=== PATIENT | female | born 1950 | race Caucasian/White ===

== ENCOUNTER → 2022-04-05 | Emergency (ER) | payer MEDICARE, MEDICAID ==
[~2022-04-05] VITALS: Ht 167.6 cm; Wt 68.1 kg
[2022-04-05 15:36] LABS: Basophils # (auto) 0.1 10 ^3/uL (0-0.2); Basophils % (auto) 0.5 % (0.0-2.0); Eosinophils # (auto) 0.3 10 ^3/uL (0-0.8); Eosinophils % (auto) 2.5 % (0.0-7.0); Hematocrit 28.5 % (36.0-46.0); Hemoglobin 9.5 g/dL (12.2-16.2); Lymphocytes # (auto) 0.8 10 ^3/uL (0.4-5.4); Lymphocytes % (auto) 7.3 % (10.0-50.0); Mean Corpuscular Hemoglobin 30.3 pg (28.0-32.0); Mean Corpuscular Hgb Conc. 33.2 g/dL (32.0-36.0); Mean Corpuscular Volume 91.1 fL (80.0-100.0); Monocytes # (auto) 0.8 10 ^3/uL (0-1.3); Monocytes % (auto) 6.7 % (0.0-12.0); Neutrophils # (auto) 9.6 10 ^3/uL (1.6-8.6); Nucleated Red Blood Cells % 0.1 %; Red Blood Cells 3.13 10^6/uL (4.0-5.20); White Blood Cell 11.5 10^3/uL (4.4-10.8)
[2022-04-05 15:41] LABS: Albumin 3.7 g/dL (3.4-5.0); BUN/Creatinine Ratio 23.4; Calcium 8.8 mg/dL (8.5-10.1); Potassium 4.2 mmol/L (3.5-5.1)
[2022-04-05 15:44] LABS: Bilirubin, Total 0.4 mg/dL (0.2-1.0); Total Protein 6.6 g/dL (6.4-8.2)
[2022-04-05 18:00] VITALS: BP 127/58
== END | disposition home or self-care (01) ==
LOC: EDBD 14:28 → ER 14:28
DX: R07.89 Other chest pain (principal); J44.9 Chronic obstructive pulmonary disease, unspecified; Z90.49 Acquired absence of other specified parts of digestive tract; Z90.710 Acquired absence of both cervix and uterus; Z88.1 Allergy status to other antibiotic agents
CPT/HCPCS: 36415; 71045; 80053; 83880; 84484; 85025; 93005

== ENCOUNTER 2022-07-01 10:21 | Inpatient (IN) | payer MEDICARE, MEDICAID ==
[~2022-07-01] VITALS: Ht 160 cm; Wt 70.1 kg
[2022-07-01] MEDS ORDERED: MORPHINE SULFATE 4 MG/ML SYR/VIAL IV ONE (10:30)
[2022-07-01] MEDS ORDERED: ONDANSETRON HCL 4 MG/2 ML VIAL IV ONE (10:30)
[2022-07-01 11:12] LABS: Basophils # (auto) 0.1 10 ^3/uL (0-0.2); Basophils % (auto) 0.7 % (0.0-2.0); Eosinophils # (auto) 0.3 10 ^3/uL (0-0.8); Eosinophils % (auto) 3.9 % (0.0-7.0); Hematocrit 33.2 % (36.0-46.0); Hemoglobin 10.9 g/dL (12.2-16.2); Lymphocytes # (auto) 0.7 10 ^3/uL (0.4-5.4); Lymphocytes % (auto) 7.8 % (10.0-50.0); Mean Corpuscular Hemoglobin 30.1 pg (28.0-32.0); Mean Corpuscular Hgb Conc. 32.8 g/dL (32.0-36.0); Mean Corpuscular Volume 91.6 fL (80.0-100.0); Monocytes # (auto) 0.6 10 ^3/uL (0-1.3); Monocytes % (auto) 7.5 % (0.0-12.0); Neutrophils # (auto) 6.9 10 ^3/uL (1.6-8.6); Neutrophils % (auto) 80.1 % (37.0-80.0); Nucleated Red Blood Cells % 0.1 %; Red Blood Cells 3.63 10^6/uL (4.0-5.20); Red Cell Distribution Width 14.3 % (11.8-14.3); White Blood Cell 8.7 10^3/uL (4.4-10.8)
[2022-07-01 11:28] LABS: Albumin 3.5 g/dL (3.4-5.0); Calcium 8.9 mg/dL (8.5-10.1); Magnesium 2.1 mg/dL (1.6-2.6); Potassium 4.2 mmol/L (3.5-5.1)
[2022-07-01 11:32] LABS: INR 1.13 (0.9-1.15); Partial Thromboplastin Time 20.3 sec (24.6-33.4)
[2022-07-01 11:34] LABS: Bilirubin, Total 0.2 mg/dL (0.2-1.0); Total Protein 6.5 g/dL (6.4-8.2)
[2022-07-01 12:17] LABS: BUN/Creatinine Ratio 17.5
[2022-07-01 12:24] LABS: Urine Bacteria NONE SEEN /hpf (None Seen); Urine Blood Negative /uL (Negative); Urine Specific Gravity 1.009 (1.001-1.035); Urine WBC 68 /hpf (0 - 5)
[2022-07-01] MEDS ORDERED: ACETAMINOPHEN 325 MG TAB PO PRN (14:00)
[2022-07-01] MEDS ORDERED: NITROGLYCERIN 0.4 MG SL TAB SL PRN (14:00)
[2022-07-01] MEDS ORDERED: ALUM & MAG HYDROX-SIMETH LIQ(MAALOX) 30 ML PO ONE (14:00)
[2022-07-01 15:10] LABS: INR 1.15 (0.9-1.15)
[2022-07-01] MEDS ORDERED: levoFLOXacin 500MG 100 ML IV ONE (17:00)
[2022-07-01 17:25] VITALS: BP 184/72
[2022-07-01] MEDS ORDERED: RANO500T3 PO (18:10)
[2022-07-01] MEDS ORDERED: MONT-8 PO (18:10)
[2022-07-01] MEDS ORDERED: FURO40TA4 PO (18:10)
[2022-07-01] MEDS ORDERED: ASPI1TAB20 PO (18:10)
[2022-07-01] MEDS ORDERED: POTA-264 PO (18:10)
[2022-07-01] MEDS ORDERED: TICA90TA PO (18:10)
[2022-07-01] MEDS ORDERED: CARV25TA55 PO (18:10)
[2022-07-01] MEDS ORDERED: PANT40T PO (18:10)
[2022-07-01] MEDS ORDERED: LISI-275 PO (18:10)
[2022-07-01] MEDS ORDERED: ATOR40TA52 PO (18:10)
[2022-07-01] MEDS ORDERED: HYDR-4902 PO (18:10)
[2022-07-01] MEDS ORDERED: TIOTCAP IN (18:10)
[2022-07-01] MEDS ORDERED: FERR325T20 PO (18:10)
[2022-07-01] MEDS ORDERED: LOPE2CAP PO (18:10)
[2022-07-01 18:19] VITALS: BP 176/86
[2022-07-01] MEDS: TICAGRELOR 90 MG TAB PO SCH (21:57)
[2022-07-01] MEDS: MORPHINE SULFATE 4 MG/ML SYR/VIAL IV PRN (21:59)
[2022-07-01] MEDS ORDERED: ATORVASTATIN 20 MG TAB PO SCH (22:00)
[2022-07-02] VITALS (7 sets, daily range): BP systolic 111–140; BP diastolic 45–73
[2022-07-02 08:37] LABS: Basophils # (auto) 0.1 10 ^3/uL (0-0.2); Eosinophils # (auto) 0.4 10 ^3/uL (0-0.8); Eosinophils % (auto) 6.7 % (0.0-7.0); Hematocrit 30.5 % (36.0-46.0); Hemoglobin 9.8 g/dL (12.2-16.2); Lymphocytes # (auto) 0.9 10 ^3/uL (0.4-5.4); Lymphocytes % (auto) 15.5 % (10.0-50.0); Mean Corpuscular Hemoglobin 30.2 pg (28.0-32.0); Mean Corpuscular Hgb Conc. 32.1 g/dL (32.0-36.0); Mean Corpuscular Volume 94.1 fL (80.0-100.0); Monocytes # (auto) 0.6 10 ^3/uL (0-1.3); Monocytes % (auto) 9.2 % (0.0-12.0); Neutrophils # (auto) 4.1 10 ^3/uL (1.6-8.6); Neutrophils % (auto) 67.6 % (37.0-80.0); Red Blood Cells 3.24 10^6/uL (4.0-5.20); Red Cell Distribution Width 14.8 % (11.8-14.3); White Blood Cell 6.1 10^3/uL (4.4-10.8)
[2022-07-02 08:52] LABS: Calcium 8.8 mg/dL (8.5-10.1); Potassium 4.1 mmol/L (3.5-5.1)
[2022-07-02 08:59] LABS: BUN/Creatinine Ratio 26.5; Bilirubin, Total 0.3 mg/dL (0.2-1.0); Total Protein 5.9 g/dL (6.4-8.2)
[2022-07-02] MEDS ORDERED: FUROSEMIDE 20 MG/2 ML VIAL IV SCH (10:00)
[2022-07-02] MEDS: TICAGRELOR 90 MG TAB PO SCH ×2 (10:15→22:53)
[2022-07-02] MEDS: ENOXAPARIN SOD 40 MG/0.4 ML SYRINGE SC SCH (10:16)
[2022-07-02] MEDS ORDERED: ASPirin 81 mg TAB PO ONE (10:30)
[2022-07-02] MEDS ORDERED: ALBUTEROL SULF 2.5 MG/0.5ML(0.5%) NEB SOLN NEB PRN (10:30)
[2022-07-02] MEDS ORDERED: cefTRIAXone 1GM/50ML D5W 50 ML IV ONE ×2 (10:30→12:15)
[2022-07-02] MEDS ORDERED: FUROSEMIDE 20 MG/2 ML VIAL IV ONE (11:30)
[2022-07-02] MEDS ORDERED: IOHEXOL 350 MG/ML 100ML IJ ONE ×2 (11:57→13:31)
[2022-07-02] MEDS: HYDROcodone-ACET 5/325MG TAB PO PRN ×2 (12:01→22:55)
[2022-07-02] MEDS: CARVEDILOL 12.5 MG TAB PO SCH ×2 (15:28→22:54)
[2022-07-02 17:05] LABS: Urine Bacteria MOD /hpf (None Seen); Urine Blood Negative /uL (Negative); Urine Specific Gravity 1.008 (1.001-1.035); Urine WBC 26 /hpf (0 - 5)
[2022-07-02] MEDS: ATORVASTATIN 20 MG TAB PO SCH (22:54)
[2022-07-03 05:00] VITALS: BP 102/56
[2022-07-03] MEDS: CARVEDILOL 12.5 MG TAB PO SCH ×3 (06:00→22:04)
[2022-07-03 08:00] VITALS: BP 110/43
[2022-07-03] MEDS ORDERED: ASPirin-EC 81 mg tab PO SCH (10:00)
[2022-07-03] MEDS: cefTRIAXone 1GM/50ML D5W 50 ML IV SCH (11:00)
[2022-07-03] MEDS: FUROSEMIDE 20 MG/2 ML VIAL IV SCH (11:00)
[2022-07-03] MEDS: ENOXAPARIN SOD 40 MG/0.4 ML SYRINGE SC SCH (11:01)
[2022-07-03] MEDS: TICAGRELOR 90 MG TAB PO SCH ×2 (11:01→22:03)
[2022-07-03] MEDS: ASPirin 81 mg TAB PO SCH (11:02)
[2022-07-03] MEDS: LISINOPRIL 5 MG TAB PO SCH (11:02)
[2022-07-03] MEDS: PANTOPRAZOLE 40 MG TAB PO SCH (11:03)
[2022-07-03 12:00] VITALS: BP 132/75
[2022-07-03] MEDS: HYDROcodone-ACET 5/325MG TAB PO PRN (12:49)
[2022-07-03 16:57] VITALS: BP 117/56
[2022-07-03] MEDS: ONDANSETRON HCL 4 MG/2 ML VIAL IV PRN (18:33)
[2022-07-03 22:00] VITALS: BP 112/43
[2022-07-03] MEDS: ATORVASTATIN 20 MG TAB PO SCH (22:03)
[2022-07-04 05:00] VITALS: BP 97/42
[2022-07-04] MEDS: CARVEDILOL 12.5 MG TAB PO SCH ×3 (05:13→21:55)
[2022-07-04 05:50] VITALS: BP 111/43
[2022-07-04] MEDS: MORPHINE SULFATE 4 MG/ML SYR/VIAL IV PRN (08:08)
[2022-07-04 09:00] VITALS: BP 111/55
[2022-07-04] MEDS ORDERED: IOHEXOL 350 MG/ML 100ML IJ ONE (09:39)
[2022-07-04] MEDS: FUROSEMIDE 20 MG/2 ML VIAL IV SCH (10:25)
[2022-07-04] MEDS: ASPirin 81 mg TAB PO SCH (10:25)
[2022-07-04] MEDS: TICAGRELOR 90 MG TAB PO SCH ×2 (10:26→21:49)
[2022-07-04] MEDS: ENOXAPARIN SOD 40 MG/0.4 ML SYRINGE SC SCH (10:26)
[2022-07-04] MEDS: PANTOPRAZOLE 40 MG TAB PO SCH (10:26)
[2022-07-04] MEDS: LISINOPRIL 5 MG TAB PO SCH (10:26)
[2022-07-04] MEDS: cefTRIAXone 1GM/50ML D5W 50 ML IV SCH (10:27)
[2022-07-04] MEDS: HYDROcodone-ACET 5/325MG TAB PO PRN ×2 (12:48→21:51)
[2022-07-04 13:00] VITALS: BP 134/62
[2022-07-04 16:55] VITALS: BP 130/65
[2022-07-04] MEDS: ONDANSETRON HCL 4 MG/2 ML VIAL IV PRN (18:58)
[2022-07-04] MEDS: ATORVASTATIN 20 MG TAB PO SCH (21:46)
[2022-07-04 22:31] VITALS: BP 116/53
[2022-07-05 05:00] VITALS: BP 108/44
[2022-07-05] MEDS: CARVEDILOL 12.5 MG TAB PO SCH ×3 (05:27→14:33)
[2022-07-05] MEDS: HYDROcodone-ACET 5/325MG TAB PO PRN (06:03)
[2022-07-05 09:00] VITALS: BP 93/66
[2022-07-05] MEDS: ONDANSETRON HCL 4 MG/2 ML VIAL IV PRN (09:15)
[2022-07-05] MEDS: ASPirin 81 mg TAB PO SCH (09:21)
[2022-07-05] MEDS: ENOXAPARIN SOD 40 MG/0.4 ML SYRINGE SC SCH (09:21)
[2022-07-05] MEDS: TICAGRELOR 90 MG TAB PO SCH (09:21)
[2022-07-05] MEDS ORDERED: CEPH-322 PO (10:08)
[2022-07-05] MEDS: cefTRIAXone 1GM/50ML D5W 50 ML IV SCH (10:59)
[2022-07-05] MEDS: PANTOPRAZOLE 40 MG TAB PO SCH (11:00)
[2022-07-05] MEDS: LISINOPRIL 5 MG TAB PO SCH (11:00)
[2022-07-05] MEDS: FUROSEMIDE 20 MG/2 ML VIAL IV SCH (11:00)
[2022-07-05 13:00] VITALS: BP 111/40
[2022-07-05] MEDS ORDERED: ONDANSETRON ODT 4 MG TAB PO ONE (13:45)
[2022-07-05 17:00] VITALS: BP 152/58
== END 2022-07-05 19:00 | disposition home health service (06) | DRG 198 ==
LOC: EDBD 10:21 → EDUNIT# 10:21 → ER 10:21 → TELE 14:11 → TELE-EAST 17:17
PROVIDERS: ADMIT Nurse Practitioner Family; ATTEND Family Medicine
DX: I25.10 Atherosclerotic heart disease of native coronary artery without angina pectoris (principal); I50.43 Acute on chronic combined systolic (congestive) and diastolic (congestive) heart failure; J18.9 Pneumonia, unspecified organism; I27.20 Pulmonary hypertension, unspecified; I24.9 Acute ischemic heart disease, unspecified; I11.0 Hypertensive heart disease with heart failure; J44.0 Chronic obstructive pulmonary disease with (acute) lower respiratory infection; Z95.1 Presence of aortocoronary bypass graft; J44.1 Chronic obstructive pulmonary disease with (acute) exacerbation; E78.5 Hyperlipidemia, unspecified; Z88.8 Allergy status to other drugs, medicaments and biological substances; D50.0 Iron deficiency anemia secondary to blood loss (chronic); E78.00 Pure hypercholesterolemia, unspecified; Z20.822 Contact with and (suspected) exposure to COVID-19; N39.0 Urinary tract infection, site not specified; Z79.02 Long term (current) use of antithrombotics/antiplatelets; Z86.73 Personal history of transient ischemic attack (TIA), and cerebral infarction without residual deficits; Z90.710 Acquired absence of both cervix and uterus; Z95.0 Presence of cardiac pacemaker; Z95.2 Presence of prosthetic heart valve; Z95.5 Presence of coronary angioplasty implant and graft; Z99.81 Dependence on supplemental oxygen; Z90.49 Acquired absence of other specified parts of digestive tract
CPT/HCPCS: 36415; 70450; 71045; 71275; 80053; 80061; 81001; 83735; 83880; 84443; 84484; 85025; 85610; 85730; 87086; 87088; 87186; 87426; 93005; 93306; 94640; 96374; 96375; G0378; J0696; J2405; Q0162

== ENCOUNTER 2022-07-27 11:32 | Inpatient (IN) | payer MEDICARE, MEDICAID ==
[~2022-07-27] VITALS: Ht 170.2 cm; Wt 74.2 kg
[~2022-07-27 11:32] MED LIST: ASPI1TAB20 PO; ATOR40TA52 PO; CARV25TA55 PO; CEPH-322 PO; FERR325T20 PO; FURO40TA4 PO; HYDR-4902 PO; LISI-275 PO; LOPE2CAP PO; MONT-8 PO; PANT40T PO; POTA-264 PO; RANO500T3 PO; TICA90TA PO; TIOTCAP IN
[2022-07-27 12:24] LABS: Basophils # (auto) 0 10 ^3/uL (0-0.2); Basophils % (auto) 0.2 % (0.0-2.0); Eosinophils # (auto) 0.4 10 ^3/uL (0-0.8); Eosinophils % (auto) 4.3 % (0.0-7.0); Hematocrit 33.8 % (36.0-46.0); Lymphocytes # (auto) 0.7 10 ^3/uL (0.4-5.4); Lymphocytes % (auto) 7.4 % (10.0-50.0); Mean Corpuscular Hemoglobin 30.2 pg (28.0-32.0); Mean Corpuscular Hgb Conc. 32.6 g/dL (32.0-36.0); Mean Corpuscular Volume 92.8 fL (80.0-100.0); Monocytes # (auto) 0.6 10 ^3/uL (0-1.3); Monocytes % (auto) 6.5 % (0.0-12.0); Neutrophils # (auto) 7.3 10 ^3/uL (1.6-8.6); Neutrophils % (auto) 81.6 % (37.0-80.0); Red Blood Cells 3.64 10^6/uL (4.0-5.20); Red Cell Distribution Width 15.5 % (11.8-14.3)
[2022-07-27 12:42] LABS: Albumin 3.7 g/dL (3.4-5.0); Calcium 9.1 mg/dL (8.5-10.1)
[2022-07-27 12:46] LABS: BUN/Creatinine Ratio 15.5; Bilirubin, Total 0.3 mg/dL (0.2-1.0)
[2022-07-27] MEDS ORDERED: IPRATROPIUM BROM 0.5 MG/2.5ML INH SOL NEB ONE (13:00)
[2022-07-27] MEDS ORDERED: DexAMETHasone 4 MG TAB PO ONE (13:00)
[2022-07-27] MEDS ORDERED: ALBUTEROL SULF 2.5 MG/0.5ML(0.5%) NEB SOLN NEB ONE (13:00)
[2022-07-27 13:20] LABS: INR 1.11 (0.9-1.15); Partial Thromboplastin Time 27.9 sec (24.6-33.4)
[2022-07-27] MEDS: MAGNESIUM SULFATE 1GM/100ML 100 ML IV SCH ×2 (14:00→15:46)
[2022-07-27] MEDS ORDERED: cefTRIAXone 1GM/50ML D5W 50 ML IV ONE (15:00)
[2022-07-27] MEDS ORDERED: VANCOMYCIN 1GM/250ML 250 ML IV ONE (16:00)
[2022-07-27] MEDS ORDERED: CEFEPIME 1GM/ 50ML 50 ML IV ONE (17:00)
[2022-07-27] MEDS ORDERED: VANCOMYCIN PER PHARMACY 0 MG IV SCH (18:30)
[2022-07-27] MEDS ORDERED: ACETAMINOPHEN 325 MG TAB PO PRN (18:30)
[2022-07-27] MEDS ORDERED: VANCOMYCIN 1GM/250ML 250 ML IV SCH (18:45)
[2022-07-27 19:13] VITALS: BP 156/68
[2022-07-27 19:31] LABS: % Iron Saturation 10.3 % (15-50)
[2022-07-28] MEDS: methylPREDNISolone SOD SUCC 40 MG/ML VL IV SCH ×3 (00:15→21:54)
[2022-07-28] MEDS: RANOLAZINE ER 500 MG TAB PO SCH ×3 (00:16→21:55)
[2022-07-28] MEDS: FERROUS SULFATE 325mg EC TAB PO SCH ×3 (00:16→21:54)
[2022-07-28] MEDS: CARVEDILOL 12.5 MG TAB PO SCH ×4 (00:17→22:00)
[2022-07-28] MEDS: ASCORBIC ACID 500 MG TAB PO SCH ×3 (00:18→21:55)
[2022-07-28] MEDS: SODIUM CHLORIDE 0.9% 1,000 ML IV SCH ×2 (00:18→11:10)
[2022-07-28] MEDS: TICAGRELOR 90 MG TAB PO SCH ×3 (00:18→21:55)
[2022-07-28] MEDS: IPRATROPIUM BROM 0.5 MG/2.5ML INH SOL NEB SCH ×4 (00:19→18:11)
[2022-07-28] MEDS: ALBUTEROL SULF 2.5 MG/0.5ML(0.5%) NEB SOLN NEB SCH ×4 (00:19→18:12)
[2022-07-28 03:00] VITALS: BP 140/66
[2022-07-28] MEDS: VANCOMYCIN 1GM/250ML 250 ML IV SCH ×3 (03:30→21:53)
[2022-07-28 08:09] LABS: Basophils # (auto) 0 10 ^3/uL (0-0.2); Basophils % (auto) 0.2 % (0.0-2.0); Eosinophils # (auto) 0 10 ^3/uL (0-0.8); Hematocrit 30.5 % (36.0-46.0); Lymphocytes # (auto) 0.3 10 ^3/uL (0.4-5.4); Lymphocytes % (auto) 4.5 % (10.0-50.0); Mean Corpuscular Hemoglobin 31.1 pg (28.0-32.0); Mean Corpuscular Hgb Conc. 32.7 g/dL (32.0-36.0); Mean Corpuscular Volume 95.1 fL (80.0-100.0); Monocytes # (auto) 0.1 10 ^3/uL (0-1.3); Monocytes % (auto) 1.1 % (0.0-12.0); Neutrophils # (auto) 6.3 10 ^3/uL (1.6-8.6); Neutrophils % (auto) 94.2 % (37.0-80.0); Nucleated Red Blood Cells % 0.1 %; Red Blood Cells 3.21 10^6/uL (4.0-5.20); Red Cell Distribution Width 15.5 % (11.8-14.3); White Blood Cell 6.7 10^3/uL (4.4-10.8)
[2022-07-28 08:28] LABS: Albumin 3.3 g/dL (3.4-5.0); BUN/Creatinine Ratio 27.6; Calcium 8.7 mg/dL (8.5-10.1); Potassium 4.2 mmol/L (3.5-5.1)
[2022-07-28 08:31] LABS: Bilirubin, Total 0.2 mg/dL (0.2-1.0)
[2022-07-28 08:45] VITALS: BP 101/38
[2022-07-28] MEDS: cefTRIAXone 1GM/50ML D5W 50 ML IV SCH (10:12)
[2022-07-28] MEDS: LISINOPRIL 5 MG TAB PO SCH (10:13)
[2022-07-28] MEDS: ENOXAPARIN SOD 40 MG/0.4 ML SYRINGE SC SCH (10:13)
[2022-07-28] MEDS: MONTELUKAST SODIUM 10 MG TAB PO SCH (10:14)
[2022-07-28] MEDS: MULTIPLE VITAMIN TAB PO SCH (10:14)
[2022-07-28] MEDS: ASPirin-EC 81 mg tab PO SCH (10:14)
[2022-07-28] MEDS: POTASSIUM CHL 10 Meq TABLET PO SCH (10:15)
[2022-07-28] MEDS: ZINC SULFATE 220mg CAP or TAB PO SCH (10:15)
[2022-07-28] MEDS: ATORVASTATIN 20 MG TAB PO SCH (10:15)
[2022-07-28 13:00] VITALS: BP_SYST 139; BP_SYST 151; BP_DIAS 63; BP_DIAS 77
[2022-07-28] MEDS: HYDROcodone-ACET 5/325MG TAB PO PRN ×2 (14:40→19:34)
[2022-07-28 17:07] VITALS: BP 131/81
[2022-07-28 22:00] VITALS: BP 114/55
[2022-07-29] MEDS: ALBUTEROL SULF 2.5 MG/0.5ML(0.5%) NEB SOLN NEB SCH ×4 (00:33→19:01)
[2022-07-29] MEDS: IPRATROPIUM BROM 0.5 MG/2.5ML INH SOL NEB SCH ×4 (00:34→19:01)
[2022-07-29] MEDS: SODIUM CHLORIDE 0.9% 1,000 ML IV SCH (03:50)
[2022-07-29 04:30] VITALS: BP 106/51
[2022-07-29] MEDS: HYDROcodone-ACET 5/325MG TAB PO PRN ×2 (05:58→10:54)
[2022-07-29] MEDS: CARVEDILOL 12.5 MG TAB PO SCH ×3 (05:58→22:25)
[2022-07-29 09:00] VITALS: BP 133/58
[2022-07-29] MEDS: ASPirin-EC 81 mg tab PO SCH (10:51)
[2022-07-29] MEDS: ASCORBIC ACID 500 MG TAB PO SCH ×2 (10:51→22:22)
[2022-07-29] MEDS: RANOLAZINE ER 500 MG TAB PO SCH ×2 (10:51→22:22)
[2022-07-29] MEDS: ATORVASTATIN 20 MG TAB PO SCH (10:51)
[2022-07-29] MEDS: MONTELUKAST SODIUM 10 MG TAB PO SCH (10:52)
[2022-07-29] MEDS: LISINOPRIL 5 MG TAB PO SCH (10:52)
[2022-07-29] MEDS: POTASSIUM CHL 10 Meq TABLET PO SCH (10:52)
[2022-07-29] MEDS: ZINC SULFATE 220mg CAP or TAB PO SCH (10:52)
[2022-07-29] MEDS: MULTIPLE VITAMIN TAB PO SCH (10:52)
[2022-07-29] MEDS: FERROUS SULFATE 325mg EC TAB PO SCH ×2 (10:53→22:22)
[2022-07-29] MEDS: TICAGRELOR 90 MG TAB PO SCH ×2 (10:53→22:22)
[2022-07-29] MEDS: methylPREDNISolone SOD SUCC 40 MG/ML VL IV SCH ×2 (10:54→22:22)
[2022-07-29] MEDS: ENOXAPARIN SOD 40 MG/0.4 ML SYRINGE SC SCH (10:54)
[2022-07-29] MEDS: cefTRIAXone 1GM/50ML D5W 50 ML IV SCH (10:55)
[2022-07-29] MEDS: VANCOMYCIN 1GM/250ML 250 ML IV SCH ×2 (10:55→22:21)
[2022-07-29 13:00] VITALS: BP 147/63
[2022-07-29 17:00] VITALS: BP 148/60
[2022-07-29 22:00] VITALS: BP 134/50
[2022-07-30] VITALS (7 sets, daily range): BP systolic 119–147; BP diastolic 49–92
[2022-07-30] MEDS: ALBUTEROL SULF 2.5 MG/0.5ML(0.5%) NEB SOLN NEB SCH ×4 (00:28→19:14)
[2022-07-30] MEDS: IPRATROPIUM BROM 0.5 MG/2.5ML INH SOL NEB SCH ×4 (00:28→19:14)
[2022-07-30] MEDS: SODIUM CHLORIDE 0.9% 1,000 ML IV SCH ×3 (00:30→13:10)
[2022-07-30] MEDS: CARVEDILOL 12.5 MG TAB PO SCH ×4 (05:29→22:46)
[2022-07-30] MEDS: HYDROcodone-ACET 5/325MG TAB PO PRN ×2 (05:35→22:47)
[2022-07-30] MEDS: cefTRIAXone 1GM/50ML D5W 50 ML IV SCH (09:05)
[2022-07-30] MEDS: RANOLAZINE ER 500 MG TAB PO SCH ×2 (09:23→22:45)
[2022-07-30] MEDS: LISINOPRIL 5 MG TAB PO SCH (09:25)
[2022-07-30] MEDS: ATORVASTATIN 20 MG TAB PO SCH (09:26)
[2022-07-30] MEDS: POTASSIUM CHL 10 Meq TABLET PO SCH (09:27)
[2022-07-30] MEDS: ZINC SULFATE 220mg CAP or TAB PO SCH (09:27)
[2022-07-30] MEDS: ASCORBIC ACID 500 MG TAB PO SCH ×2 (09:27→22:45)
[2022-07-30] MEDS: ENOXAPARIN SOD 40 MG/0.4 ML SYRINGE SC SCH (09:27)
[2022-07-30] MEDS: ASPirin-EC 81 mg tab PO SCH (09:27)
[2022-07-30] MEDS: FERROUS SULFATE 325mg EC TAB PO SCH ×2 (09:28→22:45)
[2022-07-30] MEDS: MULTIPLE VITAMIN TAB PO SCH (09:28)
[2022-07-30] MEDS: MONTELUKAST SODIUM 10 MG TAB PO SCH (09:28)
[2022-07-30] MEDS: TICAGRELOR 90 MG TAB PO SCH ×2 (09:29→22:47)
[2022-07-30] MEDS: methylPREDNISolone SOD SUCC 40 MG/ML VL IV SCH ×2 (09:29→22:45)
[2022-07-30] MEDS: VANCOMYCIN 1GM/250ML 250 ML IV SCH ×2 (10:51→22:44)
[2022-07-31] MEDS: ALBUTEROL SULF 2.5 MG/0.5ML(0.5%) NEB SOLN NEB SCH ×5 (01:14→18:38)
[2022-07-31] MEDS: IPRATROPIUM BROM 0.5 MG/2.5ML INH SOL NEB SCH ×5 (01:14→18:38)
[2022-07-31] MEDS: HYDROcodone-ACET 5/325MG TAB PO PRN ×2 (04:25→09:11)
[2022-07-31 05:00] VITALS: BP 144/61
[2022-07-31 05:09] LABS: Albumin 3.2 g/dL (3.4-5.0); BUN/Creatinine Ratio 27.5; Calcium 8.7 mg/dL (8.5-10.1); Phosphorus 3.3 mg/dL (2.5-4.90); Potassium 4.2 mmol/L (3.5-5.1)
[2022-07-31] MEDS: SODIUM CHLORIDE 0.9% 1,000 ML IV SCH ×2 (05:34→22:30)
[2022-07-31 08:20] VITALS: BP 121/75
[2022-07-31 09:00] VITALS: BP 121/57
[2022-07-31] MEDS: cefTRIAXone 1GM/50ML D5W 50 ML IV SCH (09:11)
[2022-07-31] MEDS: ASPirin-EC 81 mg tab PO SCH (10:04)
[2022-07-31] MEDS: ASCORBIC ACID 500 MG TAB PO SCH ×2 (10:05→22:43)
[2022-07-31] MEDS: FERROUS SULFATE 325mg EC TAB PO SCH ×2 (10:05→22:48)
[2022-07-31] MEDS: ATORVASTATIN 20 MG TAB PO SCH (10:05)
[2022-07-31] MEDS: RANOLAZINE ER 500 MG TAB PO SCH ×2 (10:08→22:43)
[2022-07-31] MEDS: MONTELUKAST SODIUM 10 MG TAB PO SCH (10:09)
[2022-07-31] MEDS: ZINC SULFATE 220mg CAP or TAB PO SCH (10:09)
[2022-07-31] MEDS: TICAGRELOR 90 MG TAB PO SCH ×2 (10:09→22:48)
[2022-07-31] MEDS: MULTIPLE VITAMIN TAB PO SCH (10:09)
[2022-07-31] MEDS: LISINOPRIL 5 MG TAB PO SCH (10:10)
[2022-07-31] MEDS: POTASSIUM CHL 10 Meq TABLET PO SCH (10:10)
[2022-07-31] MEDS: ENOXAPARIN SOD 40 MG/0.4 ML SYRINGE SC SCH (10:10)
[2022-07-31] MEDS: methylPREDNISolone SOD SUCC 40 MG/ML VL IV SCH ×2 (10:11→22:49)
[2022-07-31] MEDS: VANCOMYCIN 1GM/250ML 250 ML IV SCH ×2 (10:11→22:43)
[2022-07-31 13:00] VITALS: BP_SYST 143; BP_SYST 80; BP_DIAS 55; BP_DIAS 76
[2022-07-31] MEDS: LORazepam 0.5 MG TAB PO PRN ×2 (14:03→22:43)
[2022-07-31 17:00] VITALS: BP 142/61
[2022-07-31 22:00] VITALS: BP 130/55
[2022-08-01] MEDS: ALBUTEROL SULF 2.5 MG/0.5ML(0.5%) NEB SOLN NEB SCH ×4 (00:04→19:01)
[2022-08-01] MEDS: IPRATROPIUM BROM 0.5 MG/2.5ML INH SOL NEB SCH ×4 (00:04→19:01)
[2022-08-01 05:00] VITALS: BP 144/62
[2022-08-01] MEDS: CARVEDILOL 12.5 MG TAB PO SCH ×3 (05:49→21:49)
[2022-08-01 08:20] VITALS: BP 140/56
[2022-08-01 09:00] VITALS: BP 140/56
[2022-08-01] MEDS: cefTRIAXone 1GM/50ML D5W 50 ML IV SCH (09:10)
[2022-08-01] MEDS: methylPREDNISolone SOD SUCC 40 MG/ML VL IV SCH ×2 (09:46→22:33)
[2022-08-01] MEDS: ASPirin-EC 81 mg tab PO SCH (09:46)
[2022-08-01] MEDS: FERROUS SULFATE 325mg EC TAB PO SCH ×2 (09:47→21:48)
[2022-08-01] MEDS: ATORVASTATIN 20 MG TAB PO SCH (09:47)
[2022-08-01] MEDS: MULTIPLE VITAMIN TAB PO SCH (09:47)
[2022-08-01] MEDS: MONTELUKAST SODIUM 10 MG TAB PO SCH (09:47)
[2022-08-01] MEDS: TICAGRELOR 90 MG TAB PO SCH ×2 (09:47→22:33)
[2022-08-01] MEDS: RANOLAZINE ER 500 MG TAB PO SCH ×2 (09:47→22:32)
[2022-08-01] MEDS: ENOXAPARIN SOD 40 MG/0.4 ML SYRINGE SC SCH (09:47)
[2022-08-01] MEDS: POTASSIUM CHL 10 Meq TABLET PO SCH (09:47)
[2022-08-01] MEDS: ASCORBIC ACID 500 MG TAB PO SCH ×2 (09:47→21:48)
[2022-08-01] MEDS: LISINOPRIL 5 MG TAB PO SCH (09:48)
[2022-08-01] MEDS: VANCOMYCIN 1GM/250ML 250 ML IV SCH ×2 (09:49→22:33)
[2022-08-01] MEDS: ZINC SULFATE 220mg CAP or TAB PO SCH (10:01)
[2022-08-01] MEDS ORDERED: ONDANSETRON HCL 4 MG/2 ML VIAL IV PRN (12:30)
[2022-08-01 13:00] VITALS: BP 160/70
[2022-08-01] MEDS: SODIUM CHLORIDE 0.9% 1,000 ML IV SCH (15:10)
[2022-08-01] MEDS: LORazepam 0.5 MG TAB PO PRN (16:40)
[2022-08-01] MEDS: HYDROcodone-ACET 5/325MG TAB PO PRN (16:41)
[2022-08-01 22:00] VITALS: BP 126/57
[2022-08-02] MEDS: ALBUTEROL SULF 2.5 MG/0.5ML(0.5%) NEB SOLN NEB SCH ×3 (00:10→11:29)
[2022-08-02] MEDS: IPRATROPIUM BROM 0.5 MG/2.5ML INH SOL NEB SCH ×3 (00:10→11:29)
[2022-08-02 05:00] VITALS: BP 151/59
[2022-08-02] MEDS: CARVEDILOL 12.5 MG TAB PO SCH ×2 (05:11→13:11)
[2022-08-02] MEDS: HYDROcodone-ACET 5/325MG TAB PO PRN (05:18)
[2022-08-02 07:43] LABS: Potassium 4.5 mmol/L (3.5-5.1)
[2022-08-02 07:55] LABS: Calcium 8.7 mg/dL (8.5-10.1)
[2022-08-02 07:56] LABS: Hematocrit 32.1 % (36.0-46.0); Hemoglobin 10.5 g/dL (12.2-16.2); Mean Corpuscular Hemoglobin 30.9 pg (28.0-32.0); Mean Corpuscular Hgb Conc. 32.8 g/dL (32.0-36.0); Mean Corpuscular Volume 94.2 fL (80.0-100.0); Red Blood Cells 3.41 10^6/uL (4.0-5.20); Red Cell Distribution Width 15.6 % (11.8-14.3); White Blood Cell 7.3 10^3/uL (4.4-10.8)
[2022-08-02 08:01] LABS: BUN/Creatinine Ratio 23.9
[2022-08-02 08:04] LABS: Basophils % (manual) 0 (0.0-2.0); Blast Cells 0; Eosinophils % (manual) 0 (0-7); Metamyelocytes % 0; Monocytes % (manual) 0 (0-12); Myelocytes % 0; Promyelocytes % 0; Reactive Lymphocytes 0
[2022-08-02] MEDS: cefTRIAXone 1GM/50ML D5W 50 ML IV SCH (08:26)
[2022-08-02] MEDS: SODIUM CHLORIDE 0.9% 1,000 ML IV SCH (08:26)
[2022-08-02] MEDS: ATORVASTATIN 20 MG TAB PO SCH (08:28)
[2022-08-02] MEDS: methylPREDNISolone SOD SUCC 40 MG/ML VL IV SCH (08:28)
[2022-08-02] MEDS: MULTIPLE VITAMIN TAB PO SCH (08:28)
[2022-08-02] MEDS: ENOXAPARIN SOD 40 MG/0.4 ML SYRINGE SC SCH (08:28)
[2022-08-02] MEDS: FERROUS SULFATE 325mg EC TAB PO SCH (08:29)
[2022-08-02] MEDS: POTASSIUM CHL 10 Meq TABLET PO SCH (08:29)
[2022-08-02] MEDS: ZINC SULFATE 220mg CAP or TAB PO SCH (08:29)
[2022-08-02] MEDS: TICAGRELOR 90 MG TAB PO SCH (08:29)
[2022-08-02] MEDS: LISINOPRIL 5 MG TAB PO SCH (08:29)
[2022-08-02] MEDS: ASPirin-EC 81 mg tab PO SCH (08:29)
[2022-08-02] MEDS: ASCORBIC ACID 500 MG TAB PO SCH (08:30)
[2022-08-02] MEDS: VANCOMYCIN 1GM/250ML 250 ML IV SCH (08:30)
[2022-08-02] MEDS: MONTELUKAST SODIUM 10 MG TAB PO SCH (08:30)
[2022-08-02 09:00] VITALS: BP 172/79
[2022-08-02] MEDS: RANOLAZINE ER 500 MG TAB PO SCH (09:46)
[2022-08-02 10:33] LABS: Band Neutrophils % (manual) 2; Lymphocytes % (manual) 4 (10.0-50.0)
[2022-08-02 13:00] VITALS: BP 167/70
[2022-08-02] MEDS ORDERED: CEFD300C2 PO (14:07)
[2022-08-02] MEDS ORDERED: LINE1TAB6 PO (14:07)
[2022-08-02 14:55] VITALS: BP 154/68
== END 2022-08-02 17:00 | disposition home or self-care (01) | DRG 139 ==
LOC: ER 11:32 → OVERFLOW 18:22 → WEST WING 07-28 03:00
PROVIDERS: ADMIT Nurse Practitioner Family; ATTEND Nurse Practitioner Acute Care
DX: J15.9 Unspecified bacterial pneumonia (principal); J96.21 Acute and chronic respiratory failure with hypoxia; I50.9 Heart failure, unspecified; I11.0 Hypertensive heart disease with heart failure; D64.9 Anemia, unspecified; N30.90 Cystitis, unspecified without hematuria; Z20.822 Contact with and (suspected) exposure to COVID-19; D50.9 Iron deficiency anemia, unspecified; E78.5 Hyperlipidemia, unspecified; J43.9 Emphysema, unspecified; I25.10 Atherosclerotic heart disease of native coronary artery without angina pectoris; Z16.24 Resistance to multiple antibiotics; B96.20 Unspecified Escherichia coli [E. coli] as the cause of diseases classified elsewhere; Z80.9 Family history of malignant neoplasm, unspecified; Z86.73 Personal history of transient ischemic attack (TIA), and cerebral infarction without residual deficits; Z88.0 Allergy status to penicillin; Z88.1 Allergy status to other antibiotic agents; Z90.710 Acquired absence of both cervix and uterus; Z99.81 Dependence on supplemental oxygen; Z90.49 Acquired absence of other specified parts of digestive tract
CPT/HCPCS: 36415; 71045; 80048; 80053; 80069; 80202; 82565; 83540; 83550; 83880; 84484; 85007; 85025; 85027; 85379; 85610; 85730; 87081; 87086; 87088; 87186; 87426; 87804; 93005; 94640; 96365; 97163; G0378; J0696; J2405

== ENCOUNTER 2023-01-06 12:44 | Inpatient (IN) | payer MEDICARE, MEDICAID ==
[~2023-01-06] VITALS: Ht 160 cm; Wt 62.4 kg
[~2023-01-06 12:44] MED LIST changes: +CEFD300C2 PO; -CEPH-322 PO; +CEPH250C PO; +LINE1TAB6 PO
[2023-01-06 13:44] LABS: Basophils # (auto) 0.1 10 ^3/uL (0-0.2); Basophils % (auto) 0.8 % (0.0-2.0); Eosinophils # (auto) 0.4 10 ^3/uL (0-0.8); Eosinophils % (auto) 3.5 % (0.0-7.0); Hematocrit 34.3 % (36.0-46.0); Hemoglobin 11.5 g/dL (12.2-16.2); Lymphocytes # (auto) 0.9 10 ^3/uL (0.4-5.4); Lymphocytes % (auto) 8.2 % (10.0-50.0); Mean Corpuscular Hemoglobin 30.9 pg (28.0-32.0); Mean Corpuscular Hgb Conc. 33.4 g/dL (32.0-36.0); Mean Corpuscular Volume 92.4 fL (80.0-100.0); Monocytes # (auto) 0.7 10 ^3/uL (0-1.3); Monocytes % (auto) 6.9 % (0.0-12.0); Neutrophils # (auto) 8.4 10 ^3/uL (1.6-8.6); Neutrophils % (auto) 80.6 % (37.0-80.0); Nucleated Red Blood Cells % 0.2 %; Red Blood Cells 3.71 10^6/uL (4.0-5.20); Red Cell Distribution Width 16.3 % (11.8-14.3); White Blood Cell 10.4 10^3/uL (4.4-10.8)
[2023-01-06 13:49] LABS: Potassium 3.4 mmol/L (3.5-5.1)
[2023-01-06 13:58] LABS: Albumin 3.8 g/dL (3.4-5.0); Bilirubin, Total 0.5 mg/dL (0.2-1.0); Calcium 9.1 mg/dL (8.5-10.1); Magnesium 2.5 mg/dL (1.6-2.6)
[2023-01-06 14:08] LABS: Urine WBC None Seen /hpf (0 - 5)
[2023-01-06 14:28] LABS: Urine Bacteria NONE SEEN /hpf (None Seen); Urine Blood Negative /uL (Negative); Urine Specific Gravity 1.006 (1.001-1.035)
[2023-01-06] MEDS ORDERED: ASPirin 81 mg TAB PO ONE (18:00)
[2023-01-06] MEDS ORDERED: IPRATROPIUM BROM 0.5 MG/2.5ML INH SOL NEB ONE (18:00)
[2023-01-06] MEDS ORDERED: MAGNESIUM SULFATE 1GM/100ML 100 ML IV ONE (18:00)
[2023-01-06] MEDS ORDERED: ALBUTEROL SULF 2.5 MG/0.5ML(0.5%) NEB SOLN NEB ONE (18:00)
[2023-01-06] MEDS ORDERED: DexAMETHasone SOD PHOS 10MG/1ML VIAL INJ IV ONE (18:00)
[2023-01-06] MEDS ORDERED: NITROGLYCERIN 0.4 MG SL TAB SL PRN (23:45)
[2023-01-06] MEDS ORDERED: MORPHINE SULFATE INJ 2 MG/ml SYRG IV PRN (23:45)
[2023-01-06] MEDS ORDERED: ONDANSETRON HCL 4 MG/2 ML VIAL IV PRN (23:45)
[2023-01-06] MEDS ORDERED: IPRATROPIUM BROM 0.5 MG/2.5ML INH SOL NEB PRN (23:45)
[2023-01-06] MEDS ORDERED: FUROSEMIDE 20 MG/2 ML VIAL IV ONE (23:45)
[2023-01-06] MEDS ORDERED: DOCUSATE SOD 100 MG CAP PO PRN (23:45)
[2023-01-06] MEDS ORDERED: ACETAMINOPHEN 325 MG TAB PO PRN (23:45)
[2023-01-06] MEDS ORDERED: POTASSIUM CHL 20 Meq TABLET PO ONE (23:45)
[2023-01-06] MEDS ORDERED: hydrALAZINE HCL 20 MG/ML VL IV PRN (23:45)
[2023-01-06] MEDS ORDERED: ALBUTEROL SULF 2.5 MG/0.5ML(0.5%) NEB SOLN NEB PRN (23:45)
[2023-01-07 01:32] VITALS: BP 160/46
[2023-01-07 05:33] LABS: Basophils # (auto) 0 10 ^3/uL (0-0.2); Basophils % (auto) 0.1 % (0.0-2.0); Eosinophils # (auto) 0 10 ^3/uL (0-0.8); Eosinophils % (auto) 0.1 % (0.0-7.0); Hematocrit 36.5 % (36.0-46.0); Hemoglobin 12.5 g/dL (12.2-16.2); Lymphocytes # (auto) 0.5 10 ^3/uL (0.4-5.4); Lymphocytes % (auto) 5.3 % (10.0-50.0); Mean Corpuscular Hemoglobin 31.6 pg (28.0-32.0); Mean Corpuscular Hgb Conc. 34.1 g/dL (32.0-36.0); Mean Corpuscular Volume 92.5 fL (80.0-100.0); Monocytes # (auto) 0 10 ^3/uL (0-1.3); Monocytes % (auto) 0.5 % (0.0-12.0); Neutrophils # (auto) 8.3 10 ^3/uL (1.6-8.6); Red Blood Cells 3.95 10^6/uL (4.0-5.20); Red Cell Distribution Width 16.2 % (11.8-14.3); White Blood Cell 8.8 10^3/uL (4.4-10.8)
[2023-01-07 05:52] LABS: Albumin 4.1 g/dL (3.4-5.0); BUN/Creatinine Ratio 23.8 (10.0-20.0); Bilirubin, Total 0.4 mg/dL (0.2-1.0); Calcium 9.1 mg/dL (8.5-10.1); Total Protein 7.7 g/dL (6.4-8.2)
[2023-01-07] MEDS: SODIUM CHLOR 0.9% PF (SALINE LOCK) 10ML VIAL/SYR IV SCH ×2 (06:01→14:17)
[2023-01-07] MEDS: FUROSEMIDE 20 MG/2 ML VIAL IV SCH (10:00)
[2023-01-07] MEDS: ASPirin 81 mg TAB PO SCH (11:37)
[2023-01-07] MEDS: DexAMETHasone SOD PHOS 10MG/1ML VIAL INJ IV SCH (11:37)
[2023-01-07] MEDS: CARVEDILOL 12.5 MG TAB PO SCH (11:38)
[2023-01-07] MEDS: HYDROcodone-ACET 5/325MG TAB PO PRN (14:33)
[2023-01-07 17:40] LABS: INR 1.11 (0.9-1.15)
[2023-01-07 22:00] VITALS: BP 133/71
[2023-01-07] MEDS: ATORVASTATIN 20 MG TAB PO SCH (23:59)
[2023-01-08] MEDS: SODIUM CHLOR 0.9% PF (SALINE LOCK) 10ML VIAL/SYR IV SCH ×4 (00:06→21:14)
[2023-01-08] MEDS: HYDROcodone-ACET 5/325MG TAB PO PRN ×4 (00:51→21:13)
[2023-01-08 04:00] VITALS: BP 133/71
[2023-01-08 05:00] VITALS: BP 143/41
[2023-01-08 06:26] LABS: Potassium 3.9 mmol/L (3.5-5.1)
[2023-01-08 06:46] LABS: BUN/Creatinine Ratio 40.7 (10.0-20.0); Calcium 9.2 mg/dL (8.5-10.1)
[2023-01-08 09:00] VITALS: BP 120/48
[2023-01-08] MEDS: FUROSEMIDE 20 MG/2 ML VIAL IV SCH (09:27)
[2023-01-08] MEDS: ASPirin 81 mg TAB PO SCH (09:27)
[2023-01-08] MEDS: DexAMETHasone SOD PHOS 10MG/1ML VIAL INJ IV SCH (09:27)
[2023-01-08] MEDS ORDERED: POTASSIUM CHL 20 Meq TABLET PO ONE (12:30)
[2023-01-08 13:00] VITALS: BP 104/52
[2023-01-08] MEDS ORDERED: MAGNESIUM SULFATE 1GM/100ML 100 ML IV SCH (13:00)
[2023-01-08] MEDS: CARVEDILOL 12.5 MG TAB PO SCH ×3 (13:00→21:20)
[2023-01-08 17:24] VITALS: BP 103/42
[2023-01-08] MEDS: ATORVASTATIN 20 MG TAB PO SCH (21:13)
[2023-01-08 22:00] VITALS: BP 120/48
[2023-01-09] MEDS: HYDROcodone-ACET 5/325MG TAB PO PRN ×3 (02:22→12:55)
[2023-01-09 05:00] VITALS: BP 160/64
[2023-01-09] MEDS: SODIUM CHLOR 0.9% PF (SALINE LOCK) 10ML VIAL/SYR IV SCH ×2 (06:22→14:42)
[2023-01-09] MEDS: DexAMETHasone SOD PHOS 10MG/1ML VIAL INJ IV SCH (08:51)
[2023-01-09] MEDS: FUROSEMIDE 20 MG/2 ML VIAL IV SCH (08:52)
[2023-01-09] MEDS: ASPirin 81 mg TAB PO SCH (08:53)
[2023-01-09] MEDS: CARVEDILOL 12.5 MG TAB PO SCH (08:53)
[2023-01-09 09:00] VITALS: BP 121/59
[2023-01-09] MEDS ORDERED: MAGNESIUM OXIDE 400 MG TAB PO SCH (10:00)
[2023-01-09] MEDS ORDERED: ISOSORBIDE MONONITRATE ER 60 MG TAB PO SCH (10:00)
[2023-01-09] MEDS ORDERED: RANOLAZINE ER 500 MG TAB PO SCH (10:00)
[2023-01-09] MEDS ORDERED: CARV25TA PO (11:57)
[2023-01-09] MEDS ORDERED: ISO60SRT PO (11:57)
[2023-01-09 13:00] VITALS: BP 142/74
[2023-01-09 17:00] VITALS: BP 126/67
[2023-01-09] MEDS ORDERED: CARVEDILOL 12.5 MG TAB PO SCH (22:00)
== END 2023-01-09 19:34 | disposition home health service (06) | DRG 194 ==
LOC: EDBD 12:44 → ER 12:44 → TELE 23:35 → TELE-WESTW 01-07 21:23
PROVIDERS: ADMIT Nurse Practitioner Family; ATTEND Internal Medicine Geriatric Medicine
DX: I11.0 Hypertensive heart disease with heart failure (principal); I27.20 Pulmonary hypertension, unspecified; J96.10 Chronic respiratory failure, unspecified whether with hypoxia or hypercapnia; J44.1 Chronic obstructive pulmonary disease with (acute) exacerbation; I50.33 Acute on chronic diastolic (congestive) heart failure; E11.9 Type 2 diabetes mellitus without complications; E78.5 Hyperlipidemia, unspecified; M79.7 Fibromyalgia; I25.119 Atherosclerotic heart disease of native coronary artery with unspecified angina pectoris; I49.3 Ventricular premature depolarization; Z87.891 Personal history of nicotine dependence; Z99.81 Dependence on supplemental oxygen; Z86.73 Personal history of transient ischemic attack (TIA), and cerebral infarction without residual deficits; Z88.1 Allergy status to other antibiotic agents; Z90.710 Acquired absence of both cervix and uterus; Z95.0 Presence of cardiac pacemaker; Z95.1 Presence of aortocoronary bypass graft; Z98.61 Coronary angioplasty status; Z88.0 Allergy status to penicillin; Z88.8 Allergy status to other drugs, medicaments and biological substances; Z90.49 Acquired absence of other specified parts of digestive tract; I25.2 Old myocardial infarction
CPT/HCPCS: 36415; 71045; 80048; 80053; 81001; 83735; 83880; 84484; 85025; 85610; 85730; 93005; 93306; 94640; 96365; 96375; G0378; J1100; J2405

== ENCOUNTER 2023-01-31 09:20 | Inpatient (IN) | payer MEDICARE, MEDICAID ==
[~2023-01-31] VITALS: Ht 160 cm; Wt 68.0 kg
[~2023-01-31 09:20] MED LIST changes: +CARV25TA PO; -CARV25TA55 PO; -CEFD300C2 PO; -CEPH250C PO; +ISO60SRT PO; -LINE1TAB6 PO
[2023-01-31 10:01] LABS: Basophils # (auto) 0 10 ^3/uL (0-0.2); Basophils % (auto) 0.3 % (0.0-2.0); Eosinophils # (auto) 0.2 10 ^3/uL (0-0.8); Eosinophils % (auto) 2.4 % (0.0-7.0); Hematocrit 34.2 % (36.0-46.0); Hemoglobin 11.4 g/dL (12.2-16.2); Lymphocytes # (auto) 0.7 10 ^3/uL (0.4-5.4); Lymphocytes % (auto) 6.4 % (10.0-50.0); Mean Corpuscular Hemoglobin 30.9 pg (28.0-32.0); Mean Corpuscular Hgb Conc. 33.3 g/dL (32.0-36.0); Mean Corpuscular Volume 92.9 fL (80.0-100.0); Monocytes # (auto) 0.7 10 ^3/uL (0-1.3); Monocytes % (auto) 6.8 % (0.0-12.0); Neutrophils # (auto) 8.6 10 ^3/uL (1.6-8.6); Neutrophils % (auto) 84.1 % (37.0-80.0); Nucleated Red Blood Cells % 0.1 %; Red Blood Cells 3.68 10^6/uL (4.0-5.20); White Blood Cell 10.2 10^3/uL (4.4-10.8)
[2023-01-31 10:30] LABS: Potassium 4.2 mmol/L (3.5-5.1)
[2023-01-31 10:39] LABS: Albumin 3.5 g/dL (3.4-5.0); BUN/Creatinine Ratio 17.9 (10.0-20.0); Bilirubin, Total 0.3 mg/dL (0.2-1.0); Calcium 8.5 mg/dL (8.5-10.1); Total Protein 6.5 g/dL (6.4-8.2)
[2023-01-31] MEDS ORDERED: DexAMETHasone SOD PHOS 10MG/1ML VIAL INJ IV ONE (11:00)
[2023-01-31] MEDS ORDERED: IPRATROPIUM BROM 0.5 MG/2.5ML INH SOL NEB ONE (11:00)
[2023-01-31] MEDS ORDERED: ALBUTEROL SULF 2.5 MG/0.5ML(0.5%) NEB SOLN NEB ONE (11:00)
[2023-01-31] MEDS ORDERED: MORPHINE SULFATE INJ 2 MG/ml SYRG IV PRN (13:15)
[2023-01-31] MEDS ORDERED: NITROGLYCERIN 0.4 MG SL TAB SL PRN (13:15)
[2023-01-31] MEDS ORDERED: ALBUTEROL SULF 2.5 MG/0.5ML(0.5%) NEB SOLN NEB PRN (13:30)
[2023-01-31] MEDS ORDERED: IPRATROPIUM BROM 0.5 MG/2.5ML INH SOL NEB PRN (13:30)
[2023-01-31] MEDS ORDERED: guaiFENesin 200 MG/10 ML UD GT PRN (13:45)
[2023-01-31] MEDS: HYDROcodone-ACET 5/325MG TAB PO PRN (14:05)
[2023-01-31 15:24] VITALS: BP 140/71
[2023-01-31 16:20] LABS: INR 1.14 (0.9-1.15); Partial Thromboplastin Time 29.9 SEC (24.5-34.5)
[2023-01-31] MEDS: ONDANSETRON HCL 4 MG/2 ML VIAL IV PRN (21:05)
[2023-01-31] MEDS: TICAGRELOR 90 MG TAB PO SCH (21:48)
[2023-01-31] MEDS: RANOLAZINE ER 500 MG TAB PO SCH (21:48)
[2023-01-31] MEDS: CARVEDILOL 12.5 MG TAB PO SCH (21:50)
[2023-01-31] MEDS: FERROUS SULFATE 325mg EC TAB PO SCH (21:51)
[2023-01-31] MEDS: ATORVASTATIN 20 MG TAB PO SCH (21:51)
[2023-01-31 21:52] LABS: Urine Bacteria NONE SEEN /hpf (None Seen); Urine Blood Negative /uL (Negative); Urine Mucus FEW (None Seen); Urine Specific Gravity 1.022 (1.001-1.035); Urine WBC 9 /hpf (0 - 5)
[2023-01-31] MEDS ORDERED: PATIENTS OWN MEDICATION (Carvedilol (Coreg) 1 TAB) PO SCH (22:00)
[2023-01-31] MEDS ORDERED: PATIENTS OWN MEDICATION (Ferrous Sulfate (Ferosul) 1 TAB) PO SCH (22:00)
[2023-02-01] MEDS: HYDROcodone-ACET 5/325MG TAB PO PRN ×2 (00:02→10:52)
[2023-02-01 05:47] LABS: Basophils # (auto) 0 10 ^3/uL (0-0.2); Basophils % (auto) 0.2 % (0.0-2.0); Eosinophils # (auto) 0 10 ^3/uL (0-0.8); Eosinophils % (auto) 0.1 % (0.0-7.0); Hematocrit 31.2 % (36.0-46.0); Hemoglobin 10.6 g/dL (12.2-16.2); Lymphocytes # (auto) 0.6 10 ^3/uL (0.4-5.4); Lymphocytes % (auto) 7.8 % (10.0-50.0); Mean Corpuscular Volume 91.3 fL (80.0-100.0); Monocytes # (auto) 0.6 10 ^3/uL (0-1.3); Monocytes % (auto) 7.1 % (0.0-12.0); Neutrophils # (auto) 6.9 10 ^3/uL (1.6-8.6); Neutrophils % (auto) 84.8 % (37.0-80.0); Red Blood Cells 3.42 10^6/uL (4.0-5.20); Red Cell Distribution Width 14.3 % (11.8-14.3); White Blood Cell 8.1 10^3/uL (4.4-10.8)
[2023-02-01 06:03] LABS: Albumin 3.2 g/dL (3.4-5.0); Calcium 8.9 mg/dL (8.5-10.1); Potassium 4.2 mmol/L (3.5-5.1)
[2023-02-01 06:07] LABS: BUN/Creatinine Ratio 27.9 (10.0-20.0); Bilirubin, Total 0.4 mg/dL (0.2-1.0); Total Protein 6.4 g/dL (6.4-8.2)
[2023-02-01] MEDS ORDERED: PATIENTS OWN MEDICATION (Atorvastatin Calcium 1 TAB) PO SCH (10:00)
[2023-02-01] MEDS: DexAMETHasone SOD PHOS 10MG/1ML VIAL INJ IV SCH (10:45)
[2023-02-01] MEDS: RANOLAZINE ER 500 MG TAB PO SCH ×2 (10:45→23:27)
[2023-02-01] MEDS: CARVEDILOL 12.5 MG TAB PO SCH ×2 (10:46→23:06)
[2023-02-01] MEDS: ASPirin-EC 81 mg tab PO SCH (10:47)
[2023-02-01] MEDS: PANTOPRAZOLE 40 MG TAB PO SCH (10:47)
[2023-02-01] MEDS: ISOSORBIDE MONONITRATE ER 60 MG TAB PO SCH (10:49)
[2023-02-01] MEDS: FUROSEMIDE 40 MG TAB PO SCH (10:49)
[2023-02-01] MEDS: POTASSIUM CHL 10 Meq TABLET PO SCH (10:49)
[2023-02-01] MEDS: FERROUS SULFATE 325mg EC TAB PO SCH ×2 (10:50→23:07)
[2023-02-01] MEDS: TICAGRELOR 90 MG TAB PO SCH ×2 (10:50→23:07)
[2023-02-01] MEDS: MONTELUKAST SODIUM 10 MG TAB PO SCH (10:50)
[2023-02-01] MEDS: LISINOPRIL 5 MG TAB PO SCH (10:51)
[2023-02-01] MEDS: ONDANSETRON HCL 4 MG/2 ML VIAL IV PRN (15:47)
[2023-02-01] MEDS: ATORVASTATIN 20 MG TAB PO SCH (23:05)
[2023-02-02] VITALS (7 sets, daily range): BP systolic 96–121; BP diastolic 47–65
[2023-02-02 06:16] LABS: Basophils # (auto) 0 10 ^3/uL (0-0.2); Basophils % (auto) 0.1 % (0.0-2.0); Eosinophils # (auto) 0 10 ^3/uL (0-0.8); Eosinophils % (auto) 0.3 % (0.0-7.0); Hematocrit 32.2 % (36.0-46.0); Hemoglobin 10.7 g/dL (12.2-16.2); Lymphocytes # (auto) 0.7 10 ^3/uL (0.4-5.4); Lymphocytes % (auto) 7.5 % (10.0-50.0); Mean Corpuscular Hemoglobin 30.9 pg (28.0-32.0); Mean Corpuscular Hgb Conc. 33.3 g/dL (32.0-36.0); Mean Corpuscular Volume 92.8 fL (80.0-100.0); Monocytes # (auto) 0.7 10 ^3/uL (0-1.3); Monocytes % (auto) 6.7 % (0.0-12.0); Neutrophils # (auto) 8.3 10 ^3/uL (1.6-8.6); Neutrophils % (auto) 85.4 % (37.0-80.0); Nucleated Red Blood Cells % 0.1 %; Red Blood Cells 3.47 10^6/uL (4.0-5.20); Red Cell Distribution Width 14.4 % (11.8-14.3); White Blood Cell 9.8 10^3/uL (4.4-10.8)
[2023-02-02 06:28] LABS: Potassium 3.9 mmol/L (3.5-5.1)
[2023-02-02 06:29] LABS: Calcium 9.5 mg/dL (8.5-10.1)
[2023-02-02 08:49] LABS: BUN/Creatinine Ratio 34.7 (10.0-20.0)
[2023-02-02] MEDS: DexAMETHasone SOD PHOS 10MG/1ML VIAL INJ IV SCH (09:42)
[2023-02-02] MEDS: TICAGRELOR 90 MG TAB PO SCH ×2 (09:58→22:32)
[2023-02-02] MEDS: FERROUS SULFATE 325mg EC TAB PO SCH ×2 (09:58→22:30)
[2023-02-02] MEDS: LISINOPRIL 5 MG TAB PO SCH (10:00)
[2023-02-02] MEDS: CARVEDILOL 12.5 MG TAB PO SCH ×2 (10:00→22:31)
[2023-02-02] MEDS: ISOSORBIDE MONONITRATE ER 60 MG TAB PO SCH ×2 (10:00→12:41)
[2023-02-02] MEDS: FUROSEMIDE 40 MG TAB PO SCH (10:00)
[2023-02-02] MEDS: ASPirin-EC 81 mg tab PO SCH (10:03)
[2023-02-02] MEDS: POTASSIUM CHL 10 Meq TABLET PO SCH (10:04)
[2023-02-02] MEDS: MONTELUKAST SODIUM 10 MG TAB PO SCH (10:04)
[2023-02-02] MEDS: PANTOPRAZOLE 40 MG TAB PO SCH (10:05)
[2023-02-02] MEDS: RANOLAZINE ER 500 MG TAB PO SCH ×2 (10:14→22:30)
[2023-02-02] MEDS ORDERED: SENNA 8.6 MG TAB PO ONE (12:30)
[2023-02-02] MEDS: HYDROcodone-ACET 5/325MG TAB PO PRN (12:39)
[2023-02-02] MEDS: ATORVASTATIN 20 MG TAB PO SCH (22:30)
[2023-02-03 05:00] VITALS: BP 114/42
[2023-02-03 05:17] LABS: Basophils # (auto) 0 10 ^3/uL (0-0.2); Basophils % (auto) 0.3 % (0.0-2.0); Eosinophils # (auto) 0 10 ^3/uL (0-0.8); Eosinophils % (auto) 0.1 % (0.0-7.0); Lymphocytes # (auto) 0.8 10 ^3/uL (0.4-5.4); Lymphocytes % (auto) 6.3 % (10.0-50.0); Mean Corpuscular Hemoglobin 30.8 pg (28.0-32.0); Mean Corpuscular Hgb Conc. 34.5 g/dL (32.0-36.0); Mean Corpuscular Volume 89.3 fL (80.0-100.0); Monocytes # (auto) 1.4 10 ^3/uL (0-1.3); Monocytes % (auto) 10.7 % (0.0-12.0); Neutrophils # (auto) 10.5 10 ^3/uL (1.6-8.6); Neutrophils % (auto) 82.6 % (37.0-80.0); Nucleated Red Blood Cells % 0.2 %; Red Blood Cells 3.58 10^6/uL (4.0-5.20); Red Cell Distribution Width 14.2 % (11.8-14.3); White Blood Cell 12.8 10^3/uL (4.4-10.8)
[2023-02-03 05:32] LABS: BUN/Creatinine Ratio 39.3 (10.0-20.0); Calcium 8.8 mg/dL (8.5-10.1)
[2023-02-03 08:00] VITALS: BP 140/76
[2023-02-03 08:15] VITALS: BP 140/76
[2023-02-03 09:08] VITALS: BP 114/62
[2023-02-03] MEDS: DexAMETHasone SOD PHOS 10MG/1ML VIAL INJ IV SCH (09:33)
[2023-02-03] MEDS: TICAGRELOR 90 MG TAB PO SCH (09:34)
[2023-02-03] MEDS: PANTOPRAZOLE 40 MG TAB PO SCH (09:34)
[2023-02-03] MEDS: FERROUS SULFATE 325mg EC TAB PO SCH (09:34)
[2023-02-03] MEDS: FUROSEMIDE 40 MG TAB PO SCH (09:35)
[2023-02-03] MEDS: LISINOPRIL 5 MG TAB PO SCH (09:35)
[2023-02-03] MEDS: HYDROcodone-ACET 5/325MG TAB PO PRN (09:36)
[2023-02-03] MEDS: MONTELUKAST SODIUM 10 MG TAB PO SCH (09:36)
[2023-02-03] MEDS: POTASSIUM CHL 10 Meq TABLET PO SCH (09:36)
[2023-02-03] MEDS: ASPirin-EC 81 mg tab PO SCH (09:37)
[2023-02-03] MEDS: RANOLAZINE ER 500 MG TAB PO SCH (09:37)
[2023-02-03] MEDS: CARVEDILOL 12.5 MG TAB PO SCH (09:37)
[2023-02-03] MEDS: ISOSORBIDE MONONITRATE ER 60 MG TAB PO SCH (09:37)
[2023-02-03] MEDS ORDERED: PRED20TA2 PO (11:05)
[2023-02-03 12:15] VITALS: BP 105/64
[2023-02-03 14:35] VITALS: BP 105/64
== END 2023-02-03 19:00 | disposition home or self-care (01) | DRG 133 ==
LOC: EDBD 09:20 → ER 09:20 → TELE 13:06 → TELE-WESTW 02-01 21:30
PROVIDERS: ADMIT Nurse Practitioner Family; ATTEND Internal Medicine Pulmonary Disease
DX: J96.21 Acute and chronic respiratory failure with hypoxia (principal); I27.20 Pulmonary hypertension, unspecified; J18.9 Pneumonia, unspecified organism; J44.1 Chronic obstructive pulmonary disease with (acute) exacerbation; I11.0 Hypertensive heart disease with heart failure; J45.901 Unspecified asthma with (acute) exacerbation; I50.32 Chronic diastolic (congestive) heart failure; J84.10 Pulmonary fibrosis, unspecified; Z99.81 Dependence on supplemental oxygen; I25.10 Atherosclerotic heart disease of native coronary artery without angina pectoris; E11.9 Type 2 diabetes mellitus without complications; E78.5 Hyperlipidemia, unspecified; E66.01 Morbid (severe) obesity due to excess calories; M79.7 Fibromyalgia; Z95.1 Presence of aortocoronary bypass graft; Z79.02 Long term (current) use of antithrombotics/antiplatelets; Z88.1 Allergy status to other antibiotic agents; Z95.0 Presence of cardiac pacemaker; Z68.26 Body mass index [BMI] 26.0-26.9, adult; Z79.82 Long term (current) use of aspirin; Z79.899 Other long term (current) drug therapy; Z90.49 Acquired absence of other specified parts of digestive tract; Z98.61 Coronary angioplasty status; Z88.0 Allergy status to penicillin; Z90.710 Acquired absence of both cervix and uterus; Z86.73 Personal history of transient ischemic attack (TIA), and cerebral infarction without residual deficits; Z87.891 Personal history of nicotine dependence; Z88.8 Allergy status to other drugs, medicaments and biological substances
CPT/HCPCS: 36415; 71045; 71250; 80048; 80053; 81001; 82962; 83880; 84484; 85025; 85379; 85610; 85730; 93005; 94640; 96374; 99291; G0378; J1100; J2405

== ENCOUNTER 2023-04-01 19:44 | Emergency (ER) | payer MEDICARE, MEDICAID ==
[~2023-04-01] VITALS: Ht 167.6 cm; Wt 70.0 kg
[~2023-04-01 19:44] MED LIST changes: -LOPE2CAP PO; +PRED20TA2 PO
[2023-04-01 20:58] LABS: Basophils # (auto) 0.2 10 ^3/uL (0-0.2); Basophils % (auto) 1.7 % (0.0-2.0); Eosinophils # (auto) 0.5 10 ^3/uL (0-0.8); Eosinophils % (auto) 4.5 % (0.0-7.0); Hematocrit 32.8 % (36.0-46.0); Hemoglobin 10.8 g/dL (12.2-16.2); Lymphocytes # (auto) 0.9 10 ^3/uL (0.4-5.4); Lymphocytes % (auto) 8.4 % (10.0-50.0); Mean Corpuscular Hemoglobin 31.4 pg (28.0-32.0); Mean Corpuscular Hgb Conc. 32.9 g/dL (32.0-36.0); Mean Corpuscular Volume 95.2 fL (80.0-100.0); Monocytes # (auto) 0.8 10 ^3/uL (0-1.3); Monocytes % (auto) 7.6 % (0.0-12.0); Neutrophils # (auto) 8.2 10 ^3/uL (1.6-8.6); Neutrophils % (auto) 77.8 % (37.0-80.0); Red Blood Cells 3.44 10^6/uL (4.0-5.20); Red Cell Distribution Width 15.5 % (11.8-14.3); White Blood Cell 10.5 10^3/uL (4.4-10.8)
[2023-04-01 21:12] LABS: Alanine Aminotransferase 12 U/L (7-40); Albumin 4.2 g/dL (3.2-4.8); Alkaline Phosphatase 82 U/L (46-116); Anion Gap 5.8 (5-15); Aspartate Aminotransferase < 8 U/L (13-40); BUN/Creatinine Ratio 15.6 (10.0-20.0); Blood Urea Nitrogen 12 mg/dL (9-23); Calcium 9.3 mg/dL (8.7-10.4); Carbon Dioxide 28.2 mmol/L (20-30); Chloride 103 mmol/L (98-107); Glucose 107 mg/dL (74-106); Potassium 3.9 mmol/L (3.5-5.1); Sodium 137 mmol/L (136-145)
[2023-04-01 21:13] LABS: Bilirubin, Total 0.4 mg/dL (0.2-1.0); Total Protein 6.3 g/dL (5.7-8.2)
[2023-04-01 23:16] VITALS: PULSE 61; RESP 18; TEMP 98.6; O2SAT 99
[2023-04-02] VITALS: BP 108/37; PULSE 64; RESP 16; O2SAT 98
[2023-04-02] MEDS ORDERED: METR-344 PO (01:09)
[2023-04-02] MEDS ORDERED: CIPR-173 PO (01:09)
[2023-04-02] MEDS ORDERED: HYDROcodone-ACET 10/325MG TAB PO ONE (01:30)
== END 2023-04-02 01:52 | disposition home or self-care (01) ==
LOC: ER 19:44 → EDBD 19:44 → ER 04-02 01:46
DX: M54.50 Low back pain, unspecified (principal); K52.9 Noninfective gastroenteritis and colitis, unspecified; D64.9 Anemia, unspecified; K57.90 Diverticulosis of intestine, part unspecified, without perforation or abscess without bleeding; Z79.899 Other long term (current) drug therapy
CPT/HCPCS: 36415; 74176; 80053; 83735; 83880; 84484; 85025; 93005

== ENCOUNTER 2023-06-01 10:39 | Inpatient (IN) | payer MEDICARE, MEDICAID ==
[~2023-06-01] VITALS: Ht 160 cm; Wt 62.0 kg
[~2023-06-01 10:39] MED LIST changes: +CIPR-173 PO; +METR-344 PO
[2023-06-01 11:11] LABS: Basophils # (auto) 0.1 10 ^3/uL (0-0.2); Basophils % (auto) 0.6 % (0.0-2.0); Eosinophils # (auto) 0.4 10 ^3/uL (0-0.8); Eosinophils % (auto) 3.8 % (0.0-7.0); Hematocrit 28.5 % (36.0-46.0); Hemoglobin 9.3 g/dL (12.2-16.2); Lymphocytes # (auto) 0.6 10 ^3/uL (0.4-5.4); Lymphocytes % (auto) 5.7 % (10.0-50.0); Mean Corpuscular Hemoglobin 32.9 pg (28.0-32.0); Mean Corpuscular Hgb Conc. 32.6 g/dL (32.0-36.0); Mean Corpuscular Volume 100.7 fL (80.0-100.0); Monocytes # (auto) 0.7 10 ^3/uL (0-1.3); Monocytes % (auto) 6.9 % (0.0-12.0); Neutrophils # (auto) 8.7 10 ^3/uL (1.6-8.6); Red Blood Cells 2.83 10^6/uL (4.0-5.20); Red Cell Distribution Width 15.9 % (11.8-14.3); White Blood Cell 10.5 10^3/uL (4.4-10.8)
[2023-06-01 11:26] LABS: INR 1.25 (0.9-1.15); Prothrombin Time 12.9 sec (9.3-11.8)
[2023-06-01 11:28] LABS: Alanine Aminotransferase 13 U/L (7-40); Albumin 4.2 g/dL (3.2-4.8); Alkaline Phosphatase 72 U/L (46-116); Anion Gap 6 (5-15); Aspartate Aminotransferase 14 U/L (13-40); BUN/Creatinine Ratio 27.9 (10.0-20.0); Bilirubin, Total 0.3 mg/dL (0.2-1.0); Blood Urea Nitrogen 17 mg/dL (9-23); Carbon Dioxide 27 mmol/L (20-30); Chloride 105 mmol/L (98-107); Glucose 94 mg/dL (74-106); Potassium 4.2 mmol/L (3.5-5.1); Sodium 138 mmol/L (136-145); Total Protein 5.9 g/dL (5.7-8.2)
[2023-06-01] MEDS ORDERED: SODIUM CHLORIDE 0.9% 1,000 ML IV ONE (14:00)
[2023-06-01] MEDS ORDERED: ASPirin 325 MG TAB PO ONE (14:00)
[2023-06-01] MEDS ORDERED: IOHEXOL 350 MG/ML 100ML IJ ONE (14:03)
[2023-06-01 18:11] LABS: Urine Bacteria NONE SEEN /hpf (None Seen); Urine Blood Negative /uL (Negative); Urine Clarity Clear (Clear); Urine Color Colorless (Yellow); Urine Hyaline Cast FEW /lpf (0 - 2); Urine Protein, UAD TRACE (Negative); Urine Urobilinogen Normal (Negative); Urine WBC 1 /hpf (0 - 5); Urine pH 5.5 (5.0-8.0)
[2023-06-01 18:28] LABS: Urine Specific Gravity > 1.050 (1.001-1.035)
[2023-06-01] MEDS ORDERED: DOCUSATE SOD 100 MG CAP PO PRN (20:45)
[2023-06-01] MEDS ORDERED: ACETAMINOPHEN 325 MG TAB PO PRN (20:45)
[2023-06-01] MEDS ORDERED: LISI10TA34 PO (20:56)
[2023-06-01 21:52] VITALS: O2SAT 97
[2023-06-01 22:12] VITALS: BP 129/57; PULSE 73; RESP 20; O2SAT 97
[2023-06-01] MEDS: FERROUS SULFATE 325mg EC TAB PO SCH (22:28)
[2023-06-01] MEDS: ATORVASTATIN 20 MG TAB PO SCH (22:29)
[2023-06-01] MEDS: CARVEDILOL 12.5 MG TAB PO SCH (22:30)
[2023-06-01] MEDS: TICAGRELOR 90 MG TAB PO SCH (22:34)
[2023-06-01] MEDS: RANOLAZINE ER 500 MG TAB PO SCH (22:34)
[2023-06-02] VITALS (10 sets, daily range): BP systolic 98–134; BP diastolic 42–78; PULSE 69–87; RESP 16–22; TEMP 97.3–98.2; O2SAT 95–100
[2023-06-02 04:44] LABS: Basophils # (auto) 0.1 10 ^3/uL (0-0.2); Eosinophils # (auto) 0.3 10 ^3/uL (0-0.8); Monocytes # (auto) 0.7 10 ^3/uL (0-1.3)
[2023-06-02 04:46] LABS: Basophils % (auto) 0.7 % (0.0-2.0); Eosinophils % (auto) 3.8 % (0.0-7.0); Hematocrit 27.3 % (36.0-46.0); Lymphocytes # (auto) 0.7 10 ^3/uL (0.4-5.4); Lymphocytes % (auto) 8.4 % (10.0-50.0); Mean Corpuscular Hemoglobin 33.6 pg (28.0-32.0); Mean Corpuscular Volume 101.8 fL (80.0-100.0); Neutrophils # (auto) 7.1 10 ^3/uL (1.6-8.6); Neutrophils % (auto) 79.1 % (37.0-80.0); Red Blood Cells 2.68 10^6/uL (4.0-5.20); Red Cell Distribution Width 16.1 % (11.8-14.3); White Blood Cell 8.9 10^3/uL (4.4-10.8)
[2023-06-02 04:55] LABS: Alanine Aminotransferase 12 U/L (7-40); Albumin 3.9 g/dL (3.2-4.8); Alkaline Phosphatase 66 U/L (46-116); Anion Gap 6 (5-15); Aspartate Aminotransferase 17 U/L (13-40); BUN/Creatinine Ratio 24.7 (10.0-20.0); Bilirubin, Total 0.2 mg/dL (0.2-1.0); Blood Urea Nitrogen 20 mg/dL (9-23); Calcium 8.8 mg/dL (8.7-10.4); Carbon Dioxide 26 mmol/L (20-30); Chloride 106 mmol/L (98-107); Glucose 96 mg/dL (74-106); Potassium 4.5 mmol/L (3.5-5.1); Sodium 138 mmol/L (136-145); Total Protein 5.6 g/dL (5.7-8.2)
[2023-06-02] MEDS: FUROSEMIDE 20 MG/2 ML VIAL IV SCH ×2 (06:00→18:00)
[2023-06-02] MEDS: LISINOPRIL 5 MG TAB PO SCH (07:00)
[2023-06-02] MEDS: IPRATROPIUM BROM 0.5 MG/2.5ML INH SOL NEB SCH ×3 (07:10→18:21)
[2023-06-02] MEDS: ALBUTEROL MEDNEB 2.5 mg/3ml NEB NEB SCH ×3 (07:11→18:21)
[2023-06-02] MEDS: ISOSORBIDE MONONITRATE ER 60 MG TAB PO SCH (10:00)
[2023-06-02] MEDS: CARVEDILOL 12.5 MG TAB PO SCH ×2 (10:00→22:00)
[2023-06-02] MEDS: POTASSIUM CHL 10 Meq TABLET PO SCH (10:42)
[2023-06-02] MEDS: PANTOPRAZOLE 40 MG TAB PO SCH (10:42)
[2023-06-02] MEDS: FERROUS SULFATE 325mg EC TAB PO SCH ×2 (10:43→22:18)
[2023-06-02] MEDS: MONTELUKAST SODIUM 10 MG TAB PO SCH (10:43)
[2023-06-02] MEDS: RANOLAZINE ER 500 MG TAB PO SCH ×2 (10:46→22:18)
[2023-06-02] MEDS: TICAGRELOR 90 MG TAB PO SCH ×2 (11:34→22:18)
[2023-06-02] MEDS: ASPirin-EC 81 mg tab PO SCH (11:35)
[2023-06-02] MEDS: methylPREDNISolone SOD SUCC 40 MG/ML VL IV ONE ×2 (13:31→17:59)
[2023-06-02] MEDS ORDERED: levoFLOXacin 750MG 150 ML IV ONE (14:00)
[2023-06-02] MEDS: ATORVASTATIN 20 MG TAB PO SCH (22:18)
[2023-06-03] VITALS (12 sets, daily range): BP systolic 94–126; BP diastolic 51–69; PULSE 74–95; RESP 14–22; TEMP 97.9–99; O2SAT 98–100
[2023-06-03] MEDS: FUROSEMIDE 20 MG/2 ML VIAL IV SCH ×2 (06:45→18:33)
[2023-06-03] MEDS: LISINOPRIL 5 MG TAB PO SCH (06:46)
[2023-06-03] MEDS: ALBUTEROL MEDNEB 2.5 mg/3ml NEB NEB SCH ×3 (07:17→18:29)
[2023-06-03] MEDS: IPRATROPIUM BROM 0.5 MG/2.5ML INH SOL NEB SCH ×3 (07:17→18:29)
[2023-06-03] MEDS: ONDANSETRON HCL 4 MG/2 ML VIAL IV PRN (09:47)
[2023-06-03] MEDS: CARVEDILOL 12.5 MG TAB PO SCH ×3 (10:00→21:24)
[2023-06-03] MEDS: levoFLOXacin 750MG 150 ML IV SCH (11:59)
[2023-06-03] MEDS: methylPREDNISolone SOD SUCC 40 MG/ML VL IV SCH (12:00)
[2023-06-03] MEDS: TICAGRELOR 90 MG TAB PO SCH ×2 (12:00→21:23)
[2023-06-03] MEDS: FERROUS SULFATE 325mg EC TAB PO SCH ×2 (12:00→21:23)
[2023-06-03] MEDS: PANTOPRAZOLE 40 MG TAB PO SCH (12:02)
[2023-06-03] MEDS: ISOSORBIDE MONONITRATE ER 60 MG TAB PO SCH (12:02)
[2023-06-03] MEDS: POTASSIUM CHL 10 Meq TABLET PO SCH (12:02)
[2023-06-03] MEDS: ASPirin-EC 81 mg tab PO SCH (12:02)
[2023-06-03] MEDS: MONTELUKAST SODIUM 10 MG TAB PO SCH (12:03)
[2023-06-03] MEDS: RANOLAZINE ER 500 MG TAB PO SCH ×2 (12:03→21:23)
[2023-06-03] MEDS: ATORVASTATIN 20 MG TAB PO SCH (21:22)
[2023-06-04] VITALS (12 sets, daily range): BP systolic 108–125; BP diastolic 41–62; PULSE 72–96; RESP 16–19; TEMP 97.4–98.3; O2SAT 97–100
[2023-06-04] MEDS: LISINOPRIL 5 MG TAB PO SCH (06:38)
[2023-06-04] MEDS: FUROSEMIDE 20 MG/2 ML VIAL IV SCH ×2 (06:39→18:00)
[2023-06-04] MEDS: IPRATROPIUM BROM 0.5 MG/2.5ML INH SOL NEB SCH ×3 (07:03→19:24)
[2023-06-04] MEDS: ALBUTEROL MEDNEB 2.5 mg/3ml NEB NEB SCH ×3 (07:03→19:24)
[2023-06-04] MEDS: ONDANSETRON HCL 4 MG/2 ML VIAL IV PRN ×2 (08:56→14:06)
[2023-06-04] MEDS: levoFLOXacin 750MG 150 ML IV SCH (09:00)
[2023-06-04] MEDS: TICAGRELOR 90 MG TAB PO SCH ×2 (09:57→22:12)
[2023-06-04] MEDS: MONTELUKAST SODIUM 10 MG TAB PO SCH (09:57)
[2023-06-04] MEDS: ASPirin-EC 81 mg tab PO SCH (09:58)
[2023-06-04] MEDS: RANOLAZINE ER 500 MG TAB PO SCH ×2 (09:58→22:12)
[2023-06-04] MEDS: POTASSIUM CHL 10 Meq TABLET PO SCH (09:59)
[2023-06-04] MEDS: PANTOPRAZOLE 40 MG TAB PO SCH (09:59)
[2023-06-04] MEDS: FERROUS SULFATE 325mg EC TAB PO SCH ×2 (10:00→22:11)
[2023-06-04] MEDS: methylPREDNISolone SOD SUCC 40 MG/ML VL IV SCH (10:00)
[2023-06-04] MEDS: ISOSORBIDE MONONITRATE ER 60 MG TAB PO SCH (10:00)
[2023-06-04] MEDS: CARVEDILOL 12.5 MG TAB PO SCH ×2 (10:00→22:12)
[2023-06-04] MEDS ORDERED: MORPHINE SULFATE INJ 2 MG/ml SYRG IV PRN (14:00)
[2023-06-04] MEDS ORDERED: HYDROcodone-ACET 5/325MG TAB PO PRN (14:00)
[2023-06-04] MEDS: ATORVASTATIN 20 MG TAB PO SCH (22:12)
[2023-06-05] VITALS (8 sets, daily range): BP systolic 95–140; BP diastolic 37–68; PULSE 70–79; RESP 16–20; TEMP 97.4–98; O2SAT 99–100
[2023-06-05] MEDS: ALBUTEROL MEDNEB 2.5 mg/3ml NEB NEB SCH ×2 (06:23→11:36)
[2023-06-05] MEDS: IPRATROPIUM BROM 0.5 MG/2.5ML INH SOL NEB SCH ×2 (06:23→11:36)
[2023-06-05] MEDS: LISINOPRIL 5 MG TAB PO SCH (06:46)
[2023-06-05] MEDS: FUROSEMIDE 20 MG/2 ML VIAL IV SCH (06:47)
[2023-06-05] MEDS: ONDANSETRON HCL 4 MG/2 ML VIAL IV PRN (07:45)
[2023-06-05] MEDS: methylPREDNISolone SOD SUCC 40 MG/ML VL IV SCH (10:15)
[2023-06-05] MEDS: levoFLOXacin 750MG 150 ML IV SCH (10:15)
[2023-06-05] MEDS: MONTELUKAST SODIUM 10 MG TAB PO SCH (10:16)
[2023-06-05] MEDS: ASPirin-EC 81 mg tab PO SCH (10:16)
[2023-06-05] MEDS: POTASSIUM CHL 10 Meq TABLET PO SCH (10:16)
[2023-06-05] MEDS: FERROUS SULFATE 325mg EC TAB PO SCH (10:16)
[2023-06-05] MEDS: PANTOPRAZOLE 40 MG TAB PO SCH (10:16)
[2023-06-05] MEDS: TICAGRELOR 90 MG TAB PO SCH (10:16)
[2023-06-05] MEDS: CARVEDILOL 12.5 MG TAB PO SCH (10:17)
[2023-06-05] MEDS: ISOSORBIDE MONONITRATE ER 60 MG TAB PO SCH (10:18)
[2023-06-05] MEDS: RANOLAZINE ER 500 MG TAB PO SCH (10:26)
[2023-06-05] MEDS ORDERED: PRED20TA2 PO (11:20)
[2023-06-05] MEDS ORDERED: LEVO500T91 PO (11:22)
== END 2023-06-05 16:50 | disposition home or self-care (01) | DRG 140 ==
LOC: ER 10:39 → OVERFLOW 20:46 → WEST WING 06-02 14:17
PROVIDERS: ADMIT Nurse Practitioner Family; ATTEND Internal Medicine
DX: J44.1 Chronic obstructive pulmonary disease with (acute) exacerbation (principal); J96.21 Acute and chronic respiratory failure with hypoxia; I24.9 Acute ischemic heart disease, unspecified; I27.20 Pulmonary hypertension, unspecified; J84.9 Interstitial pulmonary disease, unspecified; I11.0 Hypertensive heart disease with heart failure; I50.32 Chronic diastolic (congestive) heart failure; I25.10 Atherosclerotic heart disease of native coronary artery without angina pectoris; E11.9 Type 2 diabetes mellitus without complications; Z60.2 Problems related to living alone; S62.645A Nondisplaced fracture of proximal phalanx of left ring finger, initial encounter for closed fracture; X58.XXXA Exposure to other specified factors, initial encounter; E78.5 Hyperlipidemia, unspecified; Z82.49 Family history of ischemic heart disease and other diseases of the circulatory system; Z86.73 Personal history of transient ischemic attack (TIA), and cerebral infarction without residual deficits; Z87.891 Personal history of nicotine dependence; Z88.0 Allergy status to penicillin; Z88.1 Allergy status to other antibiotic agents; Z90.710 Acquired absence of both cervix and uterus; Z95.0 Presence of cardiac pacemaker; Z95.1 Presence of aortocoronary bypass graft; Z95.5 Presence of coronary angioplasty implant and graft; Z90.49 Acquired absence of other specified parts of digestive tract; Y93.89 Activity, other specified; Y92.89 Other specified places as the place of occurrence of the external cause; Y99.8 Other external cause status
CPT/HCPCS: 36415; 71045; 71275; 73130; 80053; 81001; 83880; 84484; 85025; 85379; 85610; 85730; 93005; 94640; G0378; J1956; J2405

== ENCOUNTER 2023-07-08 13:15 | Emergency (ER) | payer MEDICARE, MEDICAID ==
[~2023-07-08] VITALS: Ht 162.6 cm; Wt 73.0 kg
[~2023-07-08 13:15] MED LIST changes: -CIPR-173 PO; +LEVO500T91 PO; -LISI-275 PO; +LISI10TA34 PO; -METR-344 PO
[2023-07-08] MEDS ORDERED: SODIUM CHLORIDE 0.9% 500 ML IVB ONE (13:45)
[2023-07-08] MEDS ORDERED: ONDANSETRON HCL 4 MG/2 ML VIAL IV ONE (13:45)
[2023-07-08] MEDS ORDERED: MORPHINE SULFATE 4 MG/ML SYR/VIAL IV ONE (13:45)
[2023-07-08 13:50] LABS: Basophils # (auto) 0.2 10 ^3/uL (0-0.2); Basophils % (auto) 1.3 % (0.0-2.0); Eosinophils # (auto) 0 10 ^3/uL (0-0.8); Eosinophils % (auto) 0.4 % (0.0-7.0); Hematocrit 35.2 % (36.0-46.0); Hemoglobin 11.4 g/dL (12.2-16.2); Lymphocytes # (auto) 0.3 10 ^3/uL (0.4-5.4); Lymphocytes % (auto) 2.3 % (10.0-50.0); Mean Corpuscular Hemoglobin 30.6 pg (28.0-32.0); Mean Corpuscular Hgb Conc. 32.4 g/dL (32.0-36.0); Mean Corpuscular Volume 94.6 fL (80.0-100.0); Monocytes # (auto) 1.2 10 ^3/uL (0-1.3); Monocytes % (auto) 8.4 % (0.0-12.0); Neutrophils # (auto) 12.2 10 ^3/uL (1.6-8.6); Neutrophils % (auto) 87.6 % (37.0-80.0); Red Blood Cells 3.73 10^6/uL (4.0-5.20); Red Cell Distribution Width 14.1 % (11.8-14.3); White Blood Cell 13.9 10^3/uL (4.4-10.8)
[2023-07-08 14:07] LABS: Alanine Aminotransferase 17 U/L (7-40); Albumin 4.6 g/dL (3.2-4.8); Alkaline Phosphatase 99 U/L (46-116); Anion Gap 9 (5-15); Aspartate Aminotransferase 20 U/L (13-40); BUN/Creatinine Ratio 19.4 (10.0-20.0); Blood Urea Nitrogen 12 mg/dL (9-23); Carbon Dioxide 25 mmol/L (20-30); Chloride 103 mmol/L (98-107); Glucose 120 mg/dL (74-106); Magnesium 1.8 mg/dL (1.6-2.6); Sodium 137 mmol/L (136-145)
[2023-07-08 14:08] VITALS: TEMP 98
[2023-07-08 14:08] LABS: Bilirubin, Total 0.4 mg/dL (0.2-1.0); Total Protein 6.3 g/dL (5.7-8.2)
[2023-07-08] MEDS ORDERED: NITROGLYCERIN 0.4 MG SL TAB SL ONE (16:15)
[2023-07-08] MEDS ORDERED: IOHEXOL 300 MG/ML 100ML BOTTLE IJ ONE ×2 (16:19→17:53)
[2023-07-08 17:20] VITALS: PULSE 92; RESP 20; O2SAT 96
[2023-07-08 19:05] LABS: Urine Bacteria NONE SEEN /hpf (None Seen); Urine Blood Negative /uL (Negative); Urine Clarity Clear (Clear); Urine Color Yellow (Yellow); Urine Mucus FEW (None Seen); Urine Protein, UAD TRACE (Negative); Urine Specific Gravity 1.047 (1.001-1.035); Urine Urobilinogen Normal (Negative); Urine WBC <1 /hpf (0 - 5); Urine pH 5.5 (5.0-8.0)
[2023-07-08 19:30] VITALS: PULSE 94; RESP 14; O2SAT 100
[2023-07-08] MEDS ORDERED: DICY10CA PO (21:05)
[2023-07-08] MEDS ORDERED: ZOFR4T PO (21:05)
[2023-07-08 22:00] VITALS: BP 134/55; RESP 22; O2SAT 97
[2023-07-08 23:59] VITALS: PULSE 89
== END 2023-07-09 00:56 | disposition home or self-care (01) ==
LOC: ER 13:15 → EDBD 13:15 → ER 07-09 00:56
DX: R10.9 Unspecified abdominal pain (principal); R07.89 Other chest pain; R11.2 Nausea with vomiting, unspecified; I11.0 Hypertensive heart disease with heart failure; I50.9 Heart failure, unspecified; I25.2 Old myocardial infarction; E11.9 Type 2 diabetes mellitus without complications; E78.5 Hyperlipidemia, unspecified; J45.909 Unspecified asthma, uncomplicated; Z95.1 Presence of aortocoronary bypass graft; Z90.49 Acquired absence of other specified parts of digestive tract; Z90.710 Acquired absence of both cervix and uterus; Z87.891 Personal history of nicotine dependence; Z86.2 Personal history of diseases of the blood and blood-forming organs and certain disorders involving the immune mechanism; Z79.2 Long term (current) use of antibiotics; Z79.82 Long term (current) use of aspirin; Z79.899 Other long term (current) drug therapy; Z88.1 Allergy status to other antibiotic agents; Z88.8 Allergy status to other drugs, medicaments and biological substances
CPT/HCPCS: 36415; 71045; 74177; 76705; 80053; 81001; 83605; 83690; 83735; 84443; 84484; 85025; 93005; 96374; 96375; 99285; J2270; J2405; J7040; Q9967

== ENCOUNTER 2023-09-06 10:59 | Inpatient (IN) | payer MEDICARE, MEDICAID ==
[~2023-09-06] VITALS: Ht 167.6 cm; Wt 69.2 kg
[~2023-09-06 10:59] MED LIST changes: +DICY10CA PO; +ZOFR4T PO
[2023-09-06] MEDS: ASPirin 81 mg TAB PO ONE (11:32)
[2023-09-06 11:46] LABS: Basophils # (auto) 0.1 10 ^3/uL (0-0.2); Basophils % (auto) 0.7 % (0.0-2.0); Eosinophils # (auto) 0.2 10 ^3/uL (0-0.8); Hematocrit 25.3 % (36.0-46.0); Hemoglobin 8.2 g/dL (12.2-16.2); Lymphocytes # (auto) 0.6 10 ^3/uL (0.4-5.4); Lymphocytes % (auto) 5.3 % (10.0-50.0); Mean Corpuscular Hgb Conc. 32.6 g/dL (32.0-36.0); Mean Corpuscular Volume 98.3 fL (80.0-100.0); Monocytes # (auto) 0.8 10 ^3/uL (0-1.3); Monocytes % (auto) 7.5 % (0.0-12.0); Neutrophils % (auto) 84.5 % (37.0-80.0); Red Blood Cells 2.57 10^6/uL (4.0-5.20); Red Cell Distribution Width 15.7 % (11.8-14.3); White Blood Cell 10.7 10^3/uL (4.4-10.8)
[2023-09-06 11:59] LABS: INR 1.21 (0.9-1.15); Partial Thromboplastin Time 26.9 SEC (24.5-34.5); Prothrombin Time 12.5 sec (9.3-11.8)
[2023-09-06 12:00] LABS: Alanine Aminotransferase 15 U/L (7-40); Albumin 4.1 g/dL (3.2-4.8); Alkaline Phosphatase 88 U/L (46-116); Anion Gap 7 (5-15); Aspartate Aminotransferase 13 U/L (13-40); BUN/Creatinine Ratio 21.5 (10.0-20.0); Blood Urea Nitrogen 14 mg/dL (9-23); Calcium 8.6 mg/dL (8.7-10.4); Carbon Dioxide 26 mmol/L (20-30); Chloride 108 mmol/L (98-107); Glucose 116 mg/dL (74-106); Lipase 41 U/L (12-53); Magnesium 1.7 mg/dL (1.6-2.6); Potassium 3.8 mmol/L (3.5-5.1); Sodium 141 mmol/L (136-145)
[2023-09-06 12:01] LABS: Bilirubin, Total 0.2 mg/dL (0.2-1.0); Total Protein 5.7 g/dL (5.7-8.2)
[2023-09-06] MEDS ORDERED: NITROGLYCERIN 0.4 MG SL TAB SL PRN (13:30)
[2023-09-06] MEDS ORDERED: ACETAMINOPHEN 325 MG TAB PO PRN (13:30)
[2023-09-06] MEDS: metroNIDAZOLE 500MG/100ML 100 ML IV ONE (13:36)
[2023-09-06] MEDS: metroNIDAZOLE 500MG/100ML 100 ML IV SCH (14:08)
[2023-09-06] MEDS: SODIUM CHLOR 0.9% PF (SALINE LOCK) 10ML VIAL/SYR IV SCH (14:09)
[2023-09-06] MEDS: AZTREONAM 1GM INJ 1 GM in D5W 5% 50 ML IV ONE (14:59)
[2023-09-06] MEDS: MORPHINE SULFATE INJ 2 MG/ml SYRG IV PRN (15:01)
[2023-09-06] MEDS: ONDANSETRON HCL 4 MG/2 ML VIAL IV PRN (15:02)
[2023-09-06 16:35] VITALS: O2SAT 100
[2023-09-06 17:20] LABS: Urine Bacteria NONE SEEN /hpf (None Seen); Urine Blood Negative /uL (Negative); Urine Clarity Clear (Clear); Urine Color Colorless (Yellow); Urine Protein, UAD Negative (Negative); Urine Specific Gravity 1.005 (1.001-1.035); Urine Urobilinogen Normal (Negative); Urine WBC 2 /hpf (0 - 5); Urine pH 5.5 (5.0-8.0)
[2023-09-06] MEDS: HYDROcodone-ACET 5/325MG TAB PO PRN (18:13)
[2023-09-06 19:30] VITALS: O2SAT 100
[2023-09-06] MEDS: CARVEDILOL 12.5 MG TAB PO SCH (22:00)
[2023-09-06] MEDS: RANOLAZINE ER 500 MG TAB PO SCH (22:19)
[2023-09-06] MEDS: ATORVASTATIN 20 MG TAB PO SCH (22:19)
[2023-09-06] MEDS: FERROUS SULFATE 325mg EC TAB PO SCH (22:20)
[2023-09-06] MEDS: TICAGRELOR 90 MG TAB PO SCH (22:20)
[2023-09-06] MEDS: AZTREONAM 1GM INJ 1 GM in D5W 5% 50 ML IV SCH (23:21)
[2023-09-07] VITALS (8 sets, daily range): BP systolic 94–158; BP diastolic 38–74; PULSE 67–82; RESP 16–18; TEMP 97.6–98.3; O2SAT 98–100
[2023-09-07] MEDS: HYDROmorphone HCL 2 MG/ML VL/or syr IV PRN (00:46)
[2023-09-07] MEDS ORDERED: MAGN400T18 PO (04:08)
[2023-09-07] MEDS ORDERED: EVOL140I SC (04:11)
[2023-09-07] MEDS: LISINOPRIL 10 MG TAB PO SCH (06:15)
[2023-09-07 08:30] LABS: Hepatitis B Surface Antigen Negative (Negative)
[2023-09-07 08:52] LABS: Hepatitis C Antibody Negative (Negative)
[2023-09-07] MEDS: ISOSORBIDE MONONITRATE ER 60 MG TAB PO SCH (09:04)
[2023-09-07] MEDS: MONTELUKAST SODIUM 10 MG TAB PO SCH (09:05)
[2023-09-07] MEDS: ASPirin-EC 81 mg tab PO SCH (09:05)
[2023-09-07] MEDS: PANTOPRAZOLE 40 MG TAB PO SCH (09:07)
[2023-09-07] MEDS: FUROSEMIDE 40 MG TAB PO SCH (09:09)
[2023-09-07] MEDS: TIOTROPIUM BROMIDE MONOHYDRATE IN SCH (10:00)
[2023-09-07 11:02] LABS: Basophils # (auto) 0 10 ^3/uL (0-0.2); Basophils % (auto) 0.3 % (0.0-2.0); Eosinophils # (auto) 0.1 10 ^3/uL (0-0.8); Hematocrit 22.7 % (36.0-46.0); Hemoglobin 7.3 g/dL (12.2-16.2); Lymphocytes # (auto) 0.5 10 ^3/uL (0.4-5.4); Mean Corpuscular Hgb Conc. 32.2 g/dL (32.0-36.0); Neutrophils # (auto) 6.4 10 ^3/uL (1.6-8.6); Red Blood Cells 2.31 10^6/uL (4.0-5.20); White Blood Cell 7.7 10^3/uL (4.4-10.8)
[2023-09-07 11:04] LABS: Eosinophils % (auto) 1.4 % (0.0-7.0); Mean Corpuscular Hemoglobin 31.6 pg (28.0-32.0); Mean Corpuscular Volume 98.1 fL (80.0-100.0); Monocytes # (auto) 0.7 10 ^3/uL (0-1.3); Monocytes % (auto) 8.9 % (0.0-12.0); Neutrophils % (auto) 83.4 % (37.0-80.0); Red Cell Distribution Width 15.3 % (11.8-14.3)
[2023-09-07 11:23] LABS: Alanine Aminotransferase 85 U/L (7-40); Alkaline Phosphatase 186 U/L (46-116); Anion Gap 6 (5-15); BUN/Creatinine Ratio 17.3 (10.0-20.0); Blood Urea Nitrogen 9 mg/dL (9-23); Calcium 8.7 mg/dL (8.5-10.1); Carbon Dioxide 28 mmol/L (20-30); Chloride 106 mmol/L (98-107); Glucose 90 mg/dL (74-106); Sodium 140 mmol/L (136-145); Triglycerides 46 mg/dL (< 150)
[2023-09-07 11:24] LABS: Folate (Folic Acid) > 24.00 ng/mL (>5.38); LDL Cholesterol 14 mg/dL (< 100)
[2023-09-07 11:25] LABS: Albumin 3.8 g/dL (3.2-4.8); Aspartate Aminotransferase 129 U/L (13-40); Bilirubin, Total 0.3 mg/dL (0.2-1.0); Cholesterol 76 mg/dL (< 200); HDL Cholesterol 53 mg/dL (40-59); Total Protein 5.5 g/dL (5.7-8.2)
[2023-09-07 11:31] LABS: CRP High Sensitivity 3.77 mg/dL (<1.0)
[2023-09-07 11:33] LABS: % Iron Saturation 11.4 % (15-50); Magnesium 1.8 mg/dL (1.6-2.6)
[2023-09-07] MEDS ORDERED: FLUT1INH28 INH (14:47)
[2023-09-07] MEDS: cefTRIAXone 1GM/50ML D5W 50 ML IV ONE (19:00)
[2023-09-08] VITALS (7 sets, daily range): BP systolic 95–139; BP diastolic 41–55; PULSE 70–91; RESP 16–20; TEMP 96.8–98.7; O2SAT 96–99
[2023-09-08 06:49] LABS: Alanine Aminotransferase 56 U/L (7-40); Albumin 3.5 g/dL (3.2-4.8); Alkaline Phosphatase 146 U/L (46-116); Anion Gap 7 (5-15); Aspartate Aminotransferase 44 U/L (13-40); Blood Urea Nitrogen 6 mg/dL (9-23); Calcium 8.3 mg/dL (8.7-10.4); Carbon Dioxide 29 mmol/L (20-30); Chloride 103 mmol/L (98-107); Glucose 89 mg/dL (74-106); Magnesium 1.8 mg/dL (1.6-2.6); Potassium 3.2 mmol/L (3.5-5.1); Sodium 139 mmol/L (136-145)
[2023-09-08 06:50] LABS: Bilirubin, Total 0.3 mg/dL (0.2-1.0); Total Protein 5.1 g/dL (5.7-8.2)
[2023-09-08 06:54] LABS: Basophils % (auto) 0.9 % (0.0-2.0); Eosinophils # (auto) 0.2 10 ^3/uL (0-0.8); Hemoglobin 7.3 g/dL (12.2-16.2); Monocytes # (auto) 0.5 10 ^3/uL (0-1.3); Neutrophils # (auto) 4.4 10 ^3/uL (1.6-8.6); White Blood Cell 5.7 10^3/uL (4.4-10.8)
[2023-09-08 06:56] LABS: Basophils # (auto) 0 10 ^3/uL (0-0.2); Eosinophils % (auto) 3.6 % (0.0-7.0); Hematocrit 22.9 % (36.0-46.0); Lymphocytes # (auto) 0.5 10 ^3/uL (0.4-5.4); Lymphocytes % (auto) 8.2 % (10.0-50.0); Monocytes % (auto) 9.6 % (0.0-12.0); Neutrophils % (auto) 77.7 % (37.0-80.0); Red Blood Cells 2.29 10^6/uL (4.0-5.20)
[2023-09-08] MEDS: cefTRIAXone 1GM/50ML D5W 50 ML IV SCH (10:16)
[2023-09-08] MEDS: POTASSIUM CHL 20 Meq TABLET PO ONE (13:00)
[2023-09-09] VITALS (7 sets, daily range): BP systolic 112–125; BP diastolic 49–78; PULSE 66–84; RESP 15–18; TEMP 97.8–98.4; O2SAT 98–100
[2023-09-09 06:30] LABS: Basophils # (auto) 0 10 ^3/uL (0-0.2); Eosinophils # (auto) 0.2 10 ^3/uL (0-0.8); Lymphocytes # (auto) 0.4 10 ^3/uL (0.4-5.4); Mean Corpuscular Hgb Conc. 32.9 g/dL (32.0-36.0); White Blood Cell 5.1 10^3/uL (4.4-10.8)
[2023-09-09 06:33] LABS: Anion Gap 5 (5-15); Calcium 8.5 mg/dL (8.7-10.4); Carbon Dioxide 29 mmol/L (20-30); Chloride 107 mmol/L (98-107); Potassium 3.6 mmol/L (3.5-5.1); Sodium 141 mmol/L (136-145)
[2023-09-09 06:34] LABS: Basophils % (auto) 0.8 % (0.0-2.0); Eosinophils % (auto) 3.9 % (0.0-7.0); Hematocrit 23.4 % (36.0-46.0); Hemoglobin 7.7 g/dL (12.2-16.2); Lymphocytes % (auto) 8.7 % (10.0-50.0); Mean Corpuscular Volume 97.5 fL (80.0-100.0); Monocytes # (auto) 0.4 10 ^3/uL (0-1.3); Monocytes % (auto) 8.5 % (0.0-12.0); Neutrophils % (auto) 78.1 % (37.0-80.0); Nucleated Red Blood Cells % 0.1 %; Red Cell Distribution Width 15.4 % (11.8-14.3)
[2023-09-09 06:39] LABS: Glucose 92 mg/dL (74-106)
[2023-09-09 06:40] LABS: BUN/Creatinine Ratio 10.7 (10.0-20.0); Blood Urea Nitrogen 6 mg/dL (9-23); Magnesium 1.8 mg/dL (1.6-2.6)
[2023-09-09] MEDS: AZTREONAM 1 GM INJ VIAL ONE (08:06)
[2023-09-10] VITALS (7 sets, daily range): BP systolic 87–145; BP diastolic 41–70; PULSE 66–82; RESP 17–20; TEMP 97.9–98.4; O2SAT 96–100
[2023-09-11 05:00] VITALS: BP 103/68; PULSE 67; RESP 16; TEMP 98.2; O2SAT 98
[2023-09-11 08:00] VITALS: PULSE 74
[2023-09-11 08:57] VITALS: BP 146/67; PULSE 81; RESP 18; TEMP 97.6; O2SAT 99
[2023-09-11] MEDS ORDERED: METR-344 PO (09:57)
[2023-09-11 10:34] VITALS: BP 146/67; PULSE 81; TEMP 36.4
== END 2023-09-11 11:40 | disposition home or self-care (01) | DRG 244 ==
LOC: EDBD 10:59 → ER 10:59 → TELE 13:25 → TELE-CENTR 23:48
PROVIDERS: ADMIT Internal Medicine Geriatric Medicine; ATTEND Internal Medicine Geriatric Medicine
DX: K57.32 Diverticulitis of large intestine without perforation or abscess without bleeding (principal); J96.21 Acute and chronic respiratory failure with hypoxia; I21.A1 Myocardial infarction type 2; I27.20 Pulmonary hypertension, unspecified; D64.9 Anemia, unspecified; E11.51 Type 2 diabetes mellitus with diabetic peripheral angiopathy without gangrene; E87.6 Hypokalemia; I11.0 Hypertensive heart disease with heart failure; E11.9 Type 2 diabetes mellitus without complications; E78.5 Hyperlipidemia, unspecified; F41.9 Anxiety disorder, unspecified; I50.32 Chronic diastolic (congestive) heart failure; K21.9 Gastro-esophageal reflux disease without esophagitis; I25.10 Atherosclerotic heart disease of native coronary artery without angina pectoris; M79.7 Fibromyalgia; J84.10 Pulmonary fibrosis, unspecified; I08.1 Rheumatic disorders of both mitral and tricuspid valves; J43.9 Emphysema, unspecified; I25.2 Old myocardial infarction; Z95.1 Presence of aortocoronary bypass graft; Z87.891 Personal history of nicotine dependence; Z86.73 Personal history of transient ischemic attack (TIA), and cerebral infarction without residual deficits; Z88.1 Allergy status to other antibiotic agents; Z95.0 Presence of cardiac pacemaker; Z79.02 Long term (current) use of antithrombotics/antiplatelets; Z79.82 Long term (current) use of aspirin; Z79.899 Other long term (current) drug therapy; Z88.0 Allergy status to penicillin; Z90.710 Acquired absence of both cervix and uterus; Z98.61 Coronary angioplasty status; Z99.81 Dependence on supplemental oxygen; Z88.8 Allergy status to other drugs, medicaments and biological substances
CPT/HCPCS: 36415; 71045; 74176; 80048; 80053; 80061; 81001; 82270; 82607; 82746; 83036; 83540; 83550; 83605; 83690; 83735; 83880; 84443; 84484; 85025; 85610; 85730; 86141; 86803; 87340; 93005; 93306; G0378; J2405; J3490; J7060

== ENCOUNTER 2023-10-10 15:12 | Inpatient (IN) | payer MEDICARE, MEDICAID ==
[~2023-10-10] VITALS: Ht 160 cm; Wt 67.6 kg
[~2023-10-10 15:12] MED LIST changes: +EVOL140I SC; +FLUT1INH28 INH; -LEVO500T91 PO; +MAGN400T18 PO; +METR-344 PO; -PRED20TA2 PO
[2023-10-10 16:12] LABS: Basophils # (auto) 0.1 10 ^3/uL (0-0.2); Basophils % (auto) 0.6 % (0.0-2.0); Eosinophils # (auto) 0.3 10 ^3/uL (0-0.8); Lymphocytes # (auto) 0.5 10 ^3/uL (0.4-5.4); Lymphocytes % (auto) 6.1 % (10.0-50.0); Mean Corpuscular Hemoglobin 32.1 pg (28.0-32.0); Mean Corpuscular Hgb Conc. 31.3 g/dL (32.0-36.0); Mean Corpuscular Volume 102.3 fL (80.0-100.0); Monocytes # (auto) 0.5 10 ^3/uL (0-1.3); Monocytes % (auto) 5.8 % (0.0-12.0); Neutrophils # (auto) 7.5 10 ^3/uL (1.6-8.6); Neutrophils % (auto) 84.5 % (37.0-80.0); Nucleated Red Blood Cells % 0.2 %; Red Blood Cells 2.06 10^6/uL (4.0-5.20); Red Cell Distribution Width 17.6 % (11.8-14.3); White Blood Cell 8.9 10^3/uL (4.4-10.8)
[2023-10-10 16:17] LABS: Hemoglobin 6.6 g/dL (12.2-16.2)
[2023-10-10 16:31] LABS: Alanine Aminotransferase 26 U/L (7-40); Alkaline Phosphatase 86 U/L (46-116); Calcium 8.7 mg/dL (8.5-10.1); Carbon Dioxide 26 mmol/L (20-30); Chloride 109 mmol/L (98-107)
[2023-10-10 16:32] LABS: Albumin 3.8 g/dL (3.2-4.8); Anion Gap 6 (5-15); Aspartate Aminotransferase 22 U/L (13-40); BUN/Creatinine Ratio 18.2 (10.0-20.0); Bilirubin, Total 0.2 mg/dL (0.2-1.0); Blood Urea Nitrogen 10 mg/dL (9-23); Glucose 130 mg/dL (74-106); Potassium 3.9 mmol/L (3.5-5.1); Sodium 141 mmol/L (136-145); Total Protein 5.1 g/dL (5.7-8.2)
[2023-10-10] MEDS: DexAMETHasone SOD PHOS 10MG/1ML VIAL INJ IM ONE (16:45)
[2023-10-10] MEDS: IPRATROPIUM BROM 0.5 MG/2.5ML INH SOL NEB ONE (16:53)
[2023-10-10] MEDS: ALBUTEROL SULF 2.5 MG/0.5ML(0.5%) NEB SOLN NEB ONE (16:53)
[2023-10-10] MEDS ORDERED: ONDANSETRON HCL 4 MG/2 ML VIAL IV PRN (17:45)
[2023-10-10] MEDS ORDERED: levoFLOXacin 750MG 150 ML IV ONE (17:45)
[2023-10-10] MEDS ORDERED: DOCUSATE SOD 100 MG CAP PO PRN (17:45)
[2023-10-10 18:18] VITALS: PULSE 72; RESP 15; O2SAT 100
[2023-10-10 19:13] VITALS: PULSE 70; RESP 18; O2SAT 100
[2023-10-10] MEDS: ALBUTEROL SULF 2.5 MG/0.5ML(0.5%) NEB SOLN NEB SCH (19:13)
[2023-10-10] MEDS: IPRATROPIUM BROM 0.5 MG/2.5ML INH SOL NEB SCH (19:14)
[2023-10-10] MEDS ORDERED: DEXTROSE (50%) 50ML SYRG IV PRN (19:15)
[2023-10-10] MEDS ORDERED: DICYCLOMINE HCL 10 MG CAP PO PRN (19:15)
[2023-10-10 19:17] LABS: INR 1.12 (0.9-1.15); Partial Thromboplastin Time 25.7 SEC (24.5-34.5); Prothrombin Time 11.7 sec (9.3-11.8)
[2023-10-10 19:23] VITALS: PULSE 72; RESP 20; O2SAT 100
[2023-10-10 19:24] VITALS: BP 124/46; PULSE 70; RESP 18; O2SAT 100
[2023-10-10] MEDS ORDERED: NITROGLYCERIN 0.4 MG SL TAB SL PRN (19:30)
[2023-10-10] MEDS ORDERED: MORPHINE SULFATE INJ 2 MG/ml SYRG IV PRN (19:30)
[2023-10-10] MEDS: ACETAMINOPHEN 325 MG TAB PO PRN (19:56)
[2023-10-10] MEDS: FUROSEMIDE 20 MG/2 ML VIAL IV SCH (19:57)
[2023-10-10] MEDS: levoFLOXacin 750MG 150 ML IV SCH (19:57)
[2023-10-10 21:39] VITALS: BP 125/47; PULSE 72; RESP 25; TEMP 98.2
[2023-10-10 22:06] VITALS: BP 126/48; PULSE 70; RESP 24; TEMP 97.9
[2023-10-10] MEDS: InsuLIN REG 1unit/0.01ml Soln (100units/ml) SC SCH (23:21)
[2023-10-10] MEDS: PANTOPRAZOLE 40 MG/10 ML VIAL INJ IV SCH (23:21)
[2023-10-10] MEDS: ACCU-CHEK COMFORT CURVE STRIP VI SCH (23:21)
[2023-10-10] MEDS: CARVEDILOL 12.5 MG TAB PO SCH (23:22)
[2023-10-10] MEDS: RANOLAZINE ER 500 MG TAB PO SCH (23:24)
[2023-10-10] MEDS: HYDROcodone-ACET 5/325MG TAB PO PRN (23:24)
[2023-10-10] MEDS: FERROUS SULFATE 325mg EC TAB PO SCH (23:24)
[2023-10-11] VITALS (17 sets, daily range): BP systolic 97–136; BP diastolic 32–62; PULSE 60–81; RESP 14–25; TEMP 97.7–98.2; O2SAT 99–100
[2023-10-11 07:20] LABS: Basophils # (auto) 0 10 ^3/uL (0-0.2); Basophils % (auto) 0.6 % (0.0-2.0); Eosinophils # (auto) 0.2 10 ^3/uL (0-0.8); Eosinophils % (auto) 2.4 % (0.0-7.0); Hematocrit 29.2 % (36.0-46.0); Hemoglobin 9.5 g/dL (12.2-16.2); Lymphocytes # (auto) 0.6 10 ^3/uL (0.4-5.4); Lymphocytes % (auto) 8.7 % (10.0-50.0); Mean Corpuscular Hemoglobin 30.4 pg (28.0-32.0); Mean Corpuscular Hgb Conc. 32.4 g/dL (32.0-36.0); Mean Corpuscular Volume 93.9 fL (80.0-100.0); Monocytes # (auto) 0.5 10 ^3/uL (0-1.3); Neutrophils # (auto) 5.7 10 ^3/uL (1.6-8.6); Neutrophils % (auto) 81.3 % (37.0-80.0); Nucleated Red Blood Cells % 0.1 %; Red Blood Cells 3.11 10^6/uL (4.0-5.20); Red Cell Distribution Width 18.3 % (11.8-14.3)
[2023-10-11 07:34] LABS: Alanine Aminotransferase 19 U/L (7-40); Albumin 3.6 g/dL (3.2-4.8); Alkaline Phosphatase 71 U/L (46-116); Anion Gap 3 (5-15); Aspartate Aminotransferase 18 U/L (13-40); BUN/Creatinine Ratio 9.8 (10.0-20.0); Bilirubin, Total 0.3 mg/dL (0.2-1.0); Blood Urea Nitrogen 6 mg/dL (9-23); Calcium 8.8 mg/dL (8.5-10.1); Carbon Dioxide 29 mmol/L (20-30); Chloride 108 mmol/L (98-107); Glucose 89 mg/dL (74-106); Potassium 3.9 mmol/L (3.5-5.1); Sodium 140 mmol/L (136-145); Total Protein 5.1 g/dL (5.7-8.2)
[2023-10-11] MEDS: POTASSIUM CHL 10 Meq TABLET PO SCH (10:00)
[2023-10-11] MEDS: MONTELUKAST SODIUM 10 MG TAB PO SCH (10:00)
[2023-10-11] MEDS: ISOSORBIDE MONONITRATE ER 60 MG TAB PO SCH (10:00)
[2023-10-11] MEDS: LISINOPRIL 5 MG TAB PO SCH (10:00)
[2023-10-11] MEDS ORDERED: SODIUM CHLORIDE LOCK 10 ML ONE (12:06)
[2023-10-11] MEDS ORDERED: LISI-275 PO (15:23)
[2023-10-11] MEDS ORDERED: NITR1SPR TL (15:23)
[2023-10-11] MEDS ORDERED: TRAM50TA2 PO (15:23)
[2023-10-11] MEDS ORDERED: MAGN400T40 PO (15:23)
[2023-10-11] MEDS ORDERED: ZINC220C8 PO (15:23)
[2023-10-11] MEDS ORDERED: EVOL140I SC (15:23)
[2023-10-11] MEDS ORDERED: GLUCTAB8 PO (15:23)
[2023-10-11] MEDS ORDERED: ALBU2TAB11 INH (15:23)
[2023-10-11] MEDS ORDERED: DICY10CA12 PO (15:23)
[2023-10-11] MEDS ORDERED: CHOL20007 PO (15:23)
[2023-10-11] MEDS ORDERED: ASCO500T11 PO (15:23)
[2023-10-11] MEDS: LIDOCAINE VISCOUS 2% 15ML UD ONE (15:35)
[2023-10-11] MEDS: diphenhdrAMINE HCL 50 MG/1 ML VL ONE (15:38)
[2023-10-11] MEDS: MIDAZOLAM HCL 5 MG/ML-1ML VIAL ONE (15:38)
[2023-10-11] MEDS: fentaNYL CITRATE 100 MCG/2 ML VL ONE (15:38)
[2023-10-11] MEDS: ATORVASTATIN 20 MG TAB PO SCH (22:44)
[2023-10-12] VITALS (7 sets, daily range): BP systolic 103–138; BP diastolic 46–53; PULSE 60–75; RESP 16–18; TEMP 97.6–98; O2SAT 99–100
[2023-10-12 05:55] LABS: Basophils # (auto) 0 10 ^3/uL (0-0.2); Basophils % (auto) 0.3 % (0.0-2.0); Eosinophils # (auto) 0.2 10 ^3/uL (0-0.8); Nucleated Red Blood Cells % 0.2 %
[2023-10-12 05:57] LABS: Eosinophils % (auto) 3.1 % (0.0-7.0); Hematocrit 32.3 % (36.0-46.0); Lymphocytes # (auto) 0.6 10 ^3/uL (0.4-5.4); Lymphocytes % (auto) 9.3 % (10.0-50.0); Mean Corpuscular Hemoglobin 30.5 pg (28.0-32.0); Mean Corpuscular Volume 98.3 fL (80.0-100.0); Monocytes # (auto) 0.5 10 ^3/uL (0-1.3); Monocytes % (auto) 8.3 % (0.0-12.0); Red Blood Cells 3.29 10^6/uL (4.0-5.20); White Blood Cell 6.3 10^3/uL (4.4-10.8)
[2023-10-12 05:59] LABS: Red Cell Distribution Width 20.3 % (11.8-14.3)
[2023-10-12 06:18] LABS: Folate (Folic Acid) > 24.00 ng/mL (>5.38)
[2023-10-12 06:25] LABS: Alanine Aminotransferase 17 U/L (7-40); Albumin 3.5 g/dL (3.2-4.8); Alkaline Phosphatase 69 U/L (46-116); Anion Gap 6 (5-15); Aspartate Aminotransferase 20 U/L (13-40); Calcium 8.8 mg/dL (8.5-10.1); Carbon Dioxide 24 mmol/L (20-30); Chloride 108 mmol/L (98-107); Glucose 78 mg/dL (74-106); Potassium 3.8 mmol/L (3.5-5.1); Sodium 138 mmol/L (136-145)
[2023-10-12 06:26] LABS: Bilirubin, Total 0.3 mg/dL (0.2-1.0); Total Protein 5.1 g/dL (5.7-8.2)
[2023-10-12 06:29] LABS: BUN/Creatinine Ratio 7.7 (10.0-20.0); Blood Urea Nitrogen < 5 mg/dL (9-23)
[2023-10-12 06:40] LABS: % Iron Saturation 19.1 % (15-50)
[2023-10-12] MEDS: ASPirin 81 mg TAB PO SCH (09:31)
[2023-10-12] MEDS ORDERED: PANT40T PO (12:53)
== END 2023-10-12 19:32 | disposition home or self-care (01) | DRG 137 ==
LOC: ER 15:12 → EDBD 15:12 → TELE 19:28 → TELE-CENTR 10-11 09:12
PROVIDERS: ADMIT Internal Medicine Pulmonary Disease; ATTEND Internal Medicine Pulmonary Disease
PROC: 30233N1 Transfusion of Nonautologous Red Blood Cells into Peripheral Vein, Percutaneous Approach (ICD-10-PCS; 2023-10-10)
PROC: 0DB68ZX Excision of Stomach, Via Natural or Artificial Opening Endoscopic, Diagnostic (ICD-10-PCS; 2023-10-11)
PROC: 0DB48ZX Excision of Esophagogastric Junction, Via Natural or Artificial Opening Endoscopic, Diagnostic (ICD-10-PCS; 2023-10-11)
PROC: 0DB98ZX Excision of Duodenum, Via Natural or Artificial Opening Endoscopic, Diagnostic (ICD-10-PCS; principal; 2023-10-11 15:31)
DX: J15.69 Pneumonia due to other Gram-negative bacteria (principal); J96.20 Acute and chronic respiratory failure, unspecified whether with hypoxia or hypercapnia; I21.A1 Myocardial infarction type 2; I50.33 Acute on chronic diastolic (congestive) heart failure; I27.20 Pulmonary hypertension, unspecified; E11.51 Type 2 diabetes mellitus with diabetic peripheral angiopathy without gangrene; D64.9 Anemia, unspecified; J44.1 Chronic obstructive pulmonary disease with (acute) exacerbation; I11.0 Hypertensive heart disease with heart failure; J84.10 Pulmonary fibrosis, unspecified; I25.10 Atherosclerotic heart disease of native coronary artery without angina pectoris; M79.7 Fibromyalgia; E78.5 Hyperlipidemia, unspecified; H54.62 Unqualified visual loss, left eye, normal vision right eye; J44.0 Chronic obstructive pulmonary disease with (acute) lower respiratory infection; K21.9 Gastro-esophageal reflux disease without esophagitis; K57.90 Diverticulosis of intestine, part unspecified, without perforation or abscess without bleeding; J96.21 Acute and chronic respiratory failure with hypoxia; K29.70 Gastritis, unspecified, without bleeding; K44.9 Diaphragmatic hernia without obstruction or gangrene; Z95.1 Presence of aortocoronary bypass graft; Z99.81 Dependence on supplemental oxygen; Z86.73 Personal history of transient ischemic attack (TIA), and cerebral infarction without residual deficits; Z98.61 Coronary angioplasty status; Z95.0 Presence of cardiac pacemaker; Z90.49 Acquired absence of other specified parts of digestive tract; Z82.49 Family history of ischemic heart disease and other diseases of the circulatory system; Z79.82 Long term (current) use of aspirin; Z79.02 Long term (current) use of antithrombotics/antiplatelets; Z79.899 Other long term (current) drug therapy; Z88.1 Allergy status to other antibiotic agents; Z88.0 Allergy status to penicillin; Z87.891 Personal history of nicotine dependence; Z90.710 Acquired absence of both cervix and uterus; Z79.4 Long term (current) use of insulin
CPT/HCPCS: 36415; 43239; 71045; 74176; 80053; 82270; 82607; 82746; 82962; 83036; 83540; 83550; 83605; 83690; 83880; 84484; 85025; 85610; 85730; 86850; 86900; 86901; 86920; 93306; 94640; C9113; G0378; J1956; J2250

== ENCOUNTER 2023-12-25 11:50 | Inpatient (IN) | payer MEDICARE, MEDICAID ==
[~2023-12-25] VITALS: Ht 142.2 cm; Wt 68.3 kg
[~2023-12-25 11:50] MED LIST changes: +ALBU2TAB11 INH; +ASCO500T11 PO; +CARV-217 PO; -CARV25TA PO; +CHOL20007 PO; +DICY-89 PO; +GLUCTAB8 PO; +LISI-275 PO; -LISI10TA34 PO; -MAGN400T18 PO; +MAGN400T40 PO; +NITR1SPR TL; +TRAM50TA2 PO; +ZINC220C8 PO
[2023-12-25 12:39] VITALS: PULSE 70; RESP 19; O2SAT 96
[2023-12-25] MEDS: IOHEXOL 300 MG/ML 100ML BOTTLE IJ ONE (14:17)
[2023-12-25 14:24] LABS: Basophils # (auto) 0.1 10 ^3/uL (0-0.2); Basophils % (auto) 0.9 % (0.0-2.0); Eosinophils # (auto) 0.3 10 ^3/uL (0-0.8); Eosinophils % (auto) 4.4 % (0.0-7.0); Hematocrit 30.4 % (36.0-46.0); Hemoglobin 9.5 g/dL (12.2-16.2); Lymphocytes # (auto) 0.5 10 ^3/uL (0.4-5.4); Lymphocytes % (auto) 7.6 % (10.0-50.0); Mean Corpuscular Hemoglobin 30.8 pg (28.0-32.0); Mean Corpuscular Hgb Conc. 31.2 g/dL (32.0-36.0); Mean Corpuscular Volume 98.7 fL (80.0-100.0); Monocytes # (auto) 0.5 10 ^3/uL (0-1.3); Neutrophils % (auto) 79.1 % (37.0-80.0); Nucleated Red Blood Cells % 0.3 %; Red Blood Cells 3.08 10^6/uL (4.0-5.20); Red Cell Distribution Width 16.2 % (11.8-14.3); White Blood Cell 6.3 10^3/uL (4.4-10.8)
[2023-12-25 14:40] LABS: INR 1.27 (0.9-1.15); Partial Thromboplastin Time 27.6 SEC (24.5-34.5); Prothrombin Time 13.2 sec (9.3-11.8)
[2023-12-25] MEDS: ASPirin 81 mg TAB PO ONE (14:42)
[2023-12-25 14:47] LABS: Alanine Aminotransferase 12 U/L (7-40); Alkaline Phosphatase 82 U/L (46-116); Anion Gap 7 (5-15); Aspartate Aminotransferase 14 U/L (13-40); BUN/Creatinine Ratio 11.9 (10.0-20.0); Blood Urea Nitrogen 7 mg/dL (9-23); Calcium 9.7 mg/dL (8.7-10.4); Carbon Dioxide 28 mmol/L (20-30); Chloride 107 mmol/L (98-107); Glucose 95 mg/dL (74-106); Magnesium 1.8 mg/dL (1.6-2.6); Potassium 3.9 mmol/L (3.5-5.1); Sodium 142 mmol/L (136-145)
[2023-12-25 14:48] LABS: Bilirubin, Total 0.3 mg/dL (0.2-1.0); Total Protein 6.1 g/dL (5.7-8.2)
[2023-12-25] MEDS: ONDANSETRON HCL 4 MG/2 ML VIAL IV ONE (16:49)
[2023-12-25] MEDS: MORPHINE SULFATE INJ 2 MG/ml SYRG IV ONE (16:50)
[2023-12-25] MEDS ORDERED: MORPHINE SULFATE INJ 2 MG/ml SYRG IV PRN (18:15)
[2023-12-25] MEDS ORDERED: traMADol HCL 50 MG TAB PO PRN (18:15)
[2023-12-25] MEDS ORDERED: DICYCLOMINE HCL 10 MG CAP PO PRN (18:15)
[2023-12-25] MEDS ORDERED: ACETAMINOPHEN 325 MG TAB PO PRN (18:15)
[2023-12-25] MEDS ORDERED: HYDROcodone-ACET 5/325MG TAB PO PRN (18:15)
[2023-12-25] MEDS ORDERED: NITROGLYCERIN 0.4 MG SL TAB SL PRN (18:15)
[2023-12-25 18:51] LABS: Triglycerides 133 mg/dL (< 150)
[2023-12-25 18:52] LABS: LDL Cholesterol 30 mg/dL (< 100)
[2023-12-25 18:53] LABS: HDL Cholesterol 56 mg/dL (40-59)
[2023-12-25 18:54] LABS: Cholesterol 100 mg/dL (< 200)
[2023-12-25] MEDS: GLUCOSAMINE CHONDROITIN VIT C PO SCH (22:00)
[2023-12-25] MEDS ORDERED: HYDROcodone-ACET 5/325MG TAB PO SCH (22:00)
[2023-12-25] MEDS: [UNRECOGNIZED DRUG - OTHER] PO SCH (22:00)
[2023-12-25 22:53] VITALS: PULSE 77; RESP 22; O2SAT 100
[2023-12-25] MEDS: TICAGRELOR 90 MG TAB PO SCH (22:53)
[2023-12-25] MEDS: ASCORBIC ACID 500 MG TAB PO SCH (22:53)
[2023-12-25] MEDS: RANOLAZINE ER 500 MG TAB PO SCH (22:53)
[2023-12-25] MEDS: ALBUTEROL SULF 2.5 MG/0.5ML(0.5%) NEB SOLN ONE (22:54)
[2023-12-25] MEDS: CARVEDILOL 12.5 MG TAB PO SCH (22:55)
[2023-12-25] MEDS: FERROUS SULFATE 325mg EC TAB PO SCH (22:55)
[2023-12-25 22:57] VITALS: BP 142/34; PULSE 73; RESP 20; TEMP 98; O2SAT 97
[2023-12-25 23:00] VITALS: PULSE 77; RESP 20; O2SAT 100
[2023-12-26] VITALS (15 sets, daily range): BP systolic 97–149; BP diastolic 36–66; PULSE 64–111; RESP 14–21; TEMP 96.9–98.3; O2SAT 94–100
[2023-12-26] MEDS: HYDROcodone-ACET 5/325MG TAB PO PRN (01:43)
[2023-12-26] MEDS ORDERED: ALBU108A5 INH (03:26)
[2023-12-26 07:05] LABS: Basophils # (auto) 0 10 ^3/uL (0-0.2)
[2023-12-26 07:34] LABS: Alanine Aminotransferase 10 U/L (7-40); Albumin 3.8 g/dL (3.2-4.8); Alkaline Phosphatase 75 U/L (46-116); Anion Gap 9 (5-15); Aspartate Aminotransferase 17 U/L (13-40); Bilirubin, Total 0.3 mg/dL (0.2-1.0); Blood Urea Nitrogen 6 mg/dL (9-23); Calcium 9.3 mg/dL (8.5-10.1); Carbon Dioxide 24 mmol/L (20-30); Chloride 106 mmol/L (98-107); Glucose 86 mg/dL (74-106); Sodium 139 mmol/L (136-145); Total Protein 5.6 g/dL (5.7-8.2)
[2023-12-26 07:41] LABS: Basophils % (auto) 0.6 % (0.0-2.0); Eosinophils # (auto) 0.4 10 ^3/uL (0-0.8); Hematocrit 31.1 % (36.0-46.0); Hemoglobin 9.3 g/dL (12.2-16.2); Lymphocytes # (auto) 0.6 10 ^3/uL (0.4-5.4); Lymphocytes % (auto) 8.1 % (10.0-50.0); Mean Corpuscular Hgb Conc. 29.8 g/dL (32.0-36.0); Mean Corpuscular Volume 104.3 fL (80.0-100.0); Monocytes # (auto) 0.6 10 ^3/uL (0-1.3); Monocytes % (auto) 8.4 % (0.0-12.0); Neutrophils # (auto) 5.6 10 ^3/uL (1.6-8.6); Neutrophils % (auto) 76.9 % (37.0-80.0); Nucleated Red Blood Cells % 0.3 %; Red Blood Cells 2.98 10^6/uL (4.0-5.20); Red Cell Distribution Width 17.6 % (11.8-14.3); White Blood Cell 7.3 10^3/uL (4.4-10.8)
[2023-12-26] MEDS: ALBUTEROL SULF 2.5 MG/0.5ML(0.5%) NEB SOLN NEB PRN (07:42)
[2023-12-26] MEDS: ASPirin-EC 81 mg tab PO SCH (09:16)
[2023-12-26] MEDS: CHOLECALCIFEROL (VITD3) 1,000UNIT=25mCg TAB PO SCH (09:16)
[2023-12-26] MEDS: ZINC SULFATE 220mg CAP or TAB PO SCH (09:17)
[2023-12-26] MEDS: MAGNESIUM OXIDE 400 MG TAB PO SCH (09:18)
[2023-12-26] MEDS: POTASSIUM CHL 10 Meq TABLET PO SCH (09:18)
[2023-12-26] MEDS: PANTOPRAZOLE 40 MG TAB PO SCH (09:19)
[2023-12-26] MEDS: LISINOPRIL 5 MG TAB PO SCH (09:35)
[2023-12-26] MEDS ORDERED: ATORVASTATIN 20 MG TAB PO SCH (10:00)
[2023-12-26] MEDS ORDERED: MONTELUKAST SODIUM 10 MG TAB PO SCH (10:00)
[2023-12-26] MEDS: ALBUTEROL SULF 2.5 MG/0.5ML(0.5%) NEB SOLN NEB SCH (11:42)
[2023-12-26] MEDS: ISOSORBIDE MONONITRATE ER 60 MG TAB PO SCH (12:04)
[2023-12-26] MEDS: FUROSEMIDE 40 MG TAB PO SCH (12:05)
[2023-12-26] MEDS: MONTELUKAST SODIUM 10 MG TAB PO SCH (22:24)
[2023-12-26] MEDS: ATORVASTATIN 20 MG TAB PO SCH (22:24)
[2023-12-27] VITALS (10 sets, daily range): BP systolic 95–137; BP diastolic 33–71; PULSE 64–77; RESP 16–20; TEMP 97.4–98.2; O2SAT 98–100
[2023-12-27 08:28] LABS: Basophils # (auto) 0.1 10 ^3/uL (0-0.2); Basophils % (auto) 0.7 % (0.0-2.0); Eosinophils # (auto) 0.4 10 ^3/uL (0-0.8); Hematocrit 30.9 % (36.0-46.0); Lymphocytes # (auto) 0.5 10 ^3/uL (0.4-5.4); Lymphocytes % (auto) 6.3 % (10.0-50.0); Mean Corpuscular Hemoglobin 31.6 pg (28.0-32.0); Mean Corpuscular Hgb Conc. 32.3 g/dL (32.0-36.0); Mean Corpuscular Volume 97.7 fL (80.0-100.0); Monocytes # (auto) 0.7 10 ^3/uL (0-1.3); Monocytes % (auto) 8.3 % (0.0-12.0); Neutrophils # (auto) 6.5 10 ^3/uL (1.6-8.6); Neutrophils % (auto) 79.7 % (37.0-80.0); Nucleated Red Blood Cells % 0.1 %; Red Blood Cells 3.16 10^6/uL (4.0-5.20); Red Cell Distribution Width 15.5 % (11.8-14.3); White Blood Cell 8.1 10^3/uL (4.4-10.8)
[2023-12-27 08:49] LABS: Alanine Aminotransferase 11 U/L (7-40); Albumin 4.3 g/dL (3.2-4.8); Alkaline Phosphatase 83 U/L (46-116); Anion Gap 7 (5-15); Aspartate Aminotransferase 15 U/L (13-40); BUN/Creatinine Ratio 13.6 (10.0-20.0); Blood Urea Nitrogen 11 mg/dL (9-23); Calcium 9.6 mg/dL (8.5-10.1); Carbon Dioxide 30 mmol/L (20-30); Chloride 100 mmol/L (98-107); Glucose 99 mg/dL (74-106); Potassium 3.9 mmol/L (3.5-5.1); Sodium 137 mmol/L (136-145)
[2023-12-27 08:50] LABS: Bilirubin, Total 0.4 mg/dL (0.2-1.0); Total Protein 6.3 g/dL (5.7-8.2)
[2023-12-27] MEDS: ONDANSETRON HCL 4 MG/2 ML VIAL IV PRN (10:30)
[2023-12-27 12:25] LABS: Urine Bacteria FEW /hpf (None Seen); Urine Blood Negative /uL (Negative); Urine Clarity Turbid (Clear); Urine Color Yellow (Yellow); Urine Mucus FEW (None Seen); Urine Protein, UAD TRACE (Negative); Urine Specific Gravity 1.028 (1.001-1.035); Urine Urobilinogen Normal (Negative); Urine WBC 4 /hpf (0 - 5)
== END 2023-12-27 18:50 | disposition home health service (06) | DRG 137 ==
LOC: ER 11:50 → EDBD 11:50 → EDSEX 11:50 → TELE 18:11 → TELE-EAST 23:32
PROVIDERS: ADMIT Nurse Practitioner Family; ATTEND Family Medicine
PROC: 05H933Z Insertion of Infusion Device into Right Brachial Vein, Percutaneous Approach (ICD-10-PCS; principal; 2023-12-25)
PROC: B54MZZA Ultrasonography of Right Upper Extremity Veins, Guidance (ICD-10-PCS; 2023-12-25)
DX: J15.8 Pneumonia due to other specified bacteria (principal); J96.21 Acute and chronic respiratory failure with hypoxia; I21.A1 Myocardial infarction type 2; I50.33 Acute on chronic diastolic (congestive) heart failure; I08.2 Rheumatic disorders of both aortic and tricuspid valves; I27.20 Pulmonary hypertension, unspecified; I95.9 Hypotension, unspecified; E11.51 Type 2 diabetes mellitus with diabetic peripheral angiopathy without gangrene; D64.9 Anemia, unspecified; I11.0 Hypertensive heart disease with heart failure; J44.1 Chronic obstructive pulmonary disease with (acute) exacerbation; I69.354 Hemiplegia and hemiparesis following cerebral infarction affecting left non-dominant side; J84.10 Pulmonary fibrosis, unspecified; E66.01 Morbid (severe) obesity due to excess calories; E78.00 Pure hypercholesterolemia, unspecified; I25.10 Atherosclerotic heart disease of native coronary artery without angina pectoris; I65.23 Occlusion and stenosis of bilateral carotid arteries; J43.9 Emphysema, unspecified; J44.0 Chronic obstructive pulmonary disease with (acute) lower respiratory infection; K21.9 Gastro-esophageal reflux disease without esophagitis; Z68.33 Body mass index [BMI] 33.0-33.9, adult; Z88.1 Allergy status to other antibiotic agents; Z88.0 Allergy status to penicillin; Z79.899 Other long term (current) drug therapy; Z74.01 Bed confinement status; Z95.1 Presence of aortocoronary bypass graft; Z98.61 Coronary angioplasty status; Z90.710 Acquired absence of both cervix and uterus; Z90.49 Acquired absence of other specified parts of digestive tract; Z87.891 Personal history of nicotine dependence; Z80.1 Family history of malignant neoplasm of trachea, bronchus and lung; Z79.82 Long term (current) use of aspirin; Z79.02 Long term (current) use of antithrombotics/antiplatelets; Z95.0 Presence of cardiac pacemaker
CPT/HCPCS: 36415; 70450; 71045; 74176; 80053; 80061; 81001; 83735; 83880; 84443; 84484; 85025; 85610; 85730; 93005; 93306; 93886; 93970; 93971; 94640; G0378; J2405

== ENCOUNTER → 2024-02-01 | Outpatient (CLI) | payer MEDICARE, MEDICAID ==
[~2024-02-01] MED LIST changes: +ALBU108A5 INH; -ALBU2TAB11 INH; -DICY10CA PO; -METR-344 PO
[2024-02-01 10:02] LABS: Basophils # (auto) 0 10 ^3/uL (0-0.2); Basophils % (auto) 0.4 % (0.0-2.0); Eosinophils # (auto) 0.4 10 ^3/uL (0-0.8); Eosinophils % (auto) 4.2 % (0.0-7.0); Hematocrit 28.1 % (36.0-46.0); Hemoglobin 9.4 g/dL (12.2-16.2); Lymphocytes # (auto) 0.6 10 ^3/uL (0.4-5.4); Lymphocytes % (auto) 5.3 % (10.0-50.0); Mean Corpuscular Hemoglobin 32.4 pg (28.0-32.0); Mean Corpuscular Hgb Conc. 33.3 g/dL (32.0-36.0); Mean Corpuscular Volume 97.3 fL (80.0-100.0); Monocytes # (auto) 0.7 10 ^3/uL (0-1.3); Monocytes % (auto) 6.7 % (0.0-12.0); Neutrophils # (auto) 8.7 10 ^3/uL (1.6-8.6); Neutrophils % (auto) 83.4 % (37.0-80.0); Nucleated Red Blood Cells % 0.2 %; Red Blood Cells 2.89 10^6/uL (4.0-5.20); Red Cell Distribution Width 16.3 % (11.8-14.3); White Blood Cell 10.5 10^3/uL (4.4-10.8)
[2024-02-01 10:40] LABS: Alanine Aminotransferase 13 U/L (7-40); Alkaline Phosphatase 83 U/L (46-116); Anion Gap 7 (5-15); Blood Urea Nitrogen 11 mg/dL (9-23); Calcium 9.2 mg/dL (8.5-10.1); Carbon Dioxide 26 mmol/L (20-30); Chloride 107 mmol/L (98-107); Glucose 102 mg/dL (74-106); LDL Cholesterol 26 mg/dL (< 100); Sodium 140 mmol/L (136-145); Triglycerides 118 mg/dL (< 150)
[2024-02-01 10:41] LABS: Albumin 4.2 g/dL (3.2-4.8); Aspartate Aminotransferase 13 U/L (13-40); Cholesterol 95 mg/dL (< 200)
[2024-02-01 10:42] LABS: Bilirubin, Direct 0.1 mg/dL (<0.3); Bilirubin, Total 0.3 mg/dL (0.2-1.0); HDL Cholesterol 59 mg/dL (40-59)
== END | disposition home or self-care (01) ==
LOC: LAB 09:03
PROVIDERS: ATTEND Specialist
DX: I10 Essential (primary) hypertension (principal); E78.5 Hyperlipidemia, unspecified; E03.9 Hypothyroidism, unspecified; R68.89 Other general symptoms and signs; D64.9 Anemia, unspecified; E11.9 Type 2 diabetes mellitus without complications
CPT/HCPCS: 36415; 80053; 80061; 82248; 84443; 85025

== ENCOUNTER 2024-02-20 11:04 | Inpatient (IN) | payer MEDICARE, MEDICAID ==
[~2024-02-20] VITALS: Ht 160 cm; Wt 69.5 kg
[~2024-02-20 11:04] MED LIST changes: +CARV25TA55 PO
[2024-02-20] MEDS: ASPirin 81 mg TAB PO ONE (11:55)
[2024-02-20 12:00] LABS: Basophils # (auto) 0 10 ^3/uL (0-0.2); Basophils % (auto) 0.3 % (0.0-2.0); Eosinophils # (auto) 0.3 10 ^3/uL (0-0.8); Eosinophils % (auto) 3.7 % (0.0-7.0); Hematocrit 32.2 % (36.0-46.0); Hemoglobin 10.5 g/dL (12.2-16.2); Lymphocytes # (auto) 0.5 10 ^3/uL (0.4-5.4); Lymphocytes % (auto) 5.6 % (10.0-50.0); Mean Corpuscular Hemoglobin 31.7 pg (28.0-32.0); Mean Corpuscular Hgb Conc. 32.7 g/dL (32.0-36.0); Mean Corpuscular Volume 96.8 fL (80.0-100.0); Monocytes # (auto) 0.6 10 ^3/uL (0-1.3); Monocytes % (auto) 6.9 % (0.0-12.0); Neutrophils # (auto) 7.4 10 ^3/uL (1.6-8.6); Neutrophils % (auto) 83.5 % (37.0-80.0); Nucleated Red Blood Cells % 0.1 %; Red Blood Cells 3.32 10^6/uL (4.0-5.20); Red Cell Distribution Width 15.2 % (11.8-14.3); White Blood Cell 8.9 10^3/uL (4.4-10.8)
[2024-02-20 12:12] LABS: Chloride 105 mmol/L (98-107); Potassium 3.6 mmol/L (3.5-5.1); Sodium 140 mmol/L (136-145)
[2024-02-20 12:13] LABS: Anion Gap 7 (5-15); Calcium 9.6 mg/dL (8.7-10.4); Carbon Dioxide 28 mmol/L (20-30)
[2024-02-20 12:18] LABS: BUN/Creatinine Ratio 17.7 (10.0-20.0); Blood Urea Nitrogen 14 mg/dL (9-23); Glucose 118 mg/dL (74-106)
[2024-02-20] MEDS ORDERED: ACETAMINOPHEN 325 MG TAB PO PRN (13:45)
[2024-02-20] MEDS ORDERED: hydrALAZINE HCL 20 MG/ML VL IV PRN (13:45)
[2024-02-20] MEDS ORDERED: DEXTROSE (50%) 50ML SYRG IV PRN (13:45)
[2024-02-20] MEDS ORDERED: ONDANSETRON HCL 4 MG/2 ML VIAL IV PRN (13:45)
[2024-02-20] MEDS: MORPHINE SULFATE 4 MG/ML SYR/VIAL IV ONE (13:52)
[2024-02-20] MEDS: SODIUM CHLOR 0.9% PF (SALINE LOCK) 10ML VIAL/SYR IV SCH (13:53)
[2024-02-20] MEDS ORDERED: MORPHINE SULFATE INJ 2 MG/ml SYRG IV PRN (14:00)
[2024-02-20] MEDS ORDERED: NITROGLYCERIN 0.4 MG SL TAB SL PRN (14:00)
[2024-02-20 15:40] VITALS: BP 143/60; PULSE 70; RESP 16; TEMP 98.9; O2SAT 94
[2024-02-20] MEDS: FUROSEMIDE 40 MG/4 ML VIAL IV ONE (15:58)
[2024-02-20 15:59] VITALS: O2SAT 99
[2024-02-20 18:10] VITALS: O2SAT 99
[2024-02-20] MEDS: ACCU-CHEK COMFORT CURVE STRIP VI SCH (20:15)
[2024-02-20] MEDS: InsuLIN REG 1unit/0.01ml Soln (100units/ml) SC SCH (20:15)
[2024-02-20] MEDS: FERROUS SULFATE 325mg EC TAB PO SCH (20:22)
[2024-02-20 22:31] VITALS: PULSE 71; RESP 19; O2SAT 99
[2024-02-20] MEDS: CARVEDILOL 3.125 MG TAB PO SCH (23:50)
[2024-02-20] MEDS: ATORVASTATIN 20 MG TAB PO SCH (23:50)
[2024-02-21] VITALS (14 sets, daily range): BP systolic 102–145; BP diastolic 59–71; PULSE 65–85; RESP 18–20; TEMP 97.8–98.4; O2SAT 94–100
[2024-02-21 07:19] LABS: Basophils # (auto) 0 10 ^3/uL (0-0.2); Basophils % (auto) 0.5 % (0.0-2.0); Eosinophils # (auto) 0.4 10 ^3/uL (0-0.8); Eosinophils % (auto) 5.5 % (0.0-7.0); Hematocrit 29.7 % (36.0-46.0); Lymphocytes # (auto) 0.5 10 ^3/uL (0.4-5.4); Lymphocytes % (auto) 7.2 % (10.0-50.0); Mean Corpuscular Hemoglobin 32.4 pg (28.0-32.0); Mean Corpuscular Hgb Conc. 33.6 g/dL (32.0-36.0); Mean Corpuscular Volume 96.5 fL (80.0-100.0); Monocytes # (auto) 0.6 10 ^3/uL (0-1.3); Monocytes % (auto) 8.1 % (0.0-12.0); Neutrophils # (auto) 5.9 10 ^3/uL (1.6-8.6); Neutrophils % (auto) 78.7 % (37.0-80.0); Red Blood Cells 3.08 10^6/uL (4.0-5.20); Red Cell Distribution Width 14.9 % (11.8-14.3); White Blood Cell 7.5 10^3/uL (4.4-10.8)
[2024-02-21 07:24] LABS: Alanine Aminotransferase 29 U/L (7-40); Alkaline Phosphatase 176 U/L (46-116); Anion Gap 6 (5-15); Aspartate Aminotransferase 38 U/L (13-40); Calcium 9.2 mg/dL (8.7-10.4); Carbon Dioxide 29 mmol/L (20-30); Chloride 105 mmol/L (98-107); Glucose 93 mg/dL (74-106); Potassium 3.5 mmol/L (3.5-5.1); Sodium 140 mmol/L (136-145)
[2024-02-21 07:25] LABS: Blood Urea Nitrogen 13 mg/dL (9-23); Total Protein 5.8 g/dL (5.7-8.2)
[2024-02-21 07:27] LABS: Bilirubin, Total 0.3 mg/dL (0.2-1.0)
[2024-02-21] MEDS: PANTOPRAZOLE 40 MG/10 ML VIAL INJ IV SCH (09:06)
[2024-02-21] MEDS: DOCUSATE SOD 100 MG CAP PO PRN (09:08)
[2024-02-21] MEDS: FUROSEMIDE 20 MG/2 ML VIAL IV SCH (09:08)
[2024-02-21] MEDS: HYDROcodone-ACET 5/325MG TAB PO PRN (09:09)
[2024-02-21] MEDS: ASPirin 81 mg TAB PO SCH (09:10)
[2024-02-21] MEDS ORDERED: LISI10TA34 PO (10:37)
[2024-02-21] MEDS: IPRATROPIUM BROM 0.5 MG/2.5ML INH SOL NEB PRN (13:51)
[2024-02-21] MEDS: ALBUTEROL SULF 2.5 MG/0.5ML(0.5%) NEB SOLN NEB PRN (13:51)
[2024-02-21] MEDS: methylPREDNISolone SOD SUCC 40 MG/ML VL IV ONE (17:53)
[2024-02-21] MEDS: cefTRIAXone 1GM/50ML D5W 50 ML IV ONE (17:54)
[2024-02-22] VITALS (8 sets, daily range): BP systolic 124–139; BP diastolic 55–84; PULSE 70–91; RESP 18–22; TEMP 98–98.5; O2SAT 95–100
[2024-02-22] MEDS ORDERED: IOHEXOL 350 MG/ML 100ML IJ ONE (05:12)
[2024-02-22 07:05] LABS: Basophils # (auto) 0 10 ^3/uL (0-0.2); Basophils % (auto) 0.4 % (0.0-2.0); Eosinophils # (auto) 0 10 ^3/uL (0-0.8); Hematocrit 30.7 % (36.0-46.0); Hemoglobin 10.3 g/dL (12.2-16.2); Lymphocytes # (auto) 0.3 10 ^3/uL (0.4-5.4); Mean Corpuscular Hemoglobin 32.3 pg (28.0-32.0); Mean Corpuscular Hgb Conc. 33.5 g/dL (32.0-36.0); Mean Corpuscular Volume 96.5 fL (80.0-100.0); Monocytes # (auto) 0.3 10 ^3/uL (0-1.3); Monocytes % (auto) 5.1 % (0.0-12.0); Neutrophils # (auto) 5.9 10 ^3/uL (1.6-8.6); Neutrophils % (auto) 89.5 % (37.0-80.0); Red Blood Cells 3.18 10^6/uL (4.0-5.20); Red Cell Distribution Width 14.6 % (11.8-14.3); White Blood Cell 6.6 10^3/uL (4.4-10.8)
[2024-02-22 07:07] LABS: Alanine Aminotransferase 24 U/L (7-40); Albumin 4.1 g/dL (3.2-4.8); Alkaline Phosphatase 150 U/L (46-116); Anion Gap 6 (5-15); Aspartate Aminotransferase 16 U/L (13-40); BUN/Creatinine Ratio 19.3 (10.0-20.0); Bilirubin, Total 0.2 mg/dL (0.2-1.0); Blood Urea Nitrogen 11 mg/dL (9-23); Calcium 9.3 mg/dL (8.7-10.4); Carbon Dioxide 27 mmol/L (20-30); Chloride 104 mmol/L (98-107); Glucose 108 mg/dL (74-106); Potassium 3.9 mmol/L (3.5-5.1); Sodium 137 mmol/L (136-145); Total Protein 6.1 g/dL (5.7-8.2)
[2024-02-22] MEDS: cefTRIAXone 1GM/50ML D5W 50 ML IV SCH (08:40)
[2024-02-22] MEDS: methylPREDNISolone SOD SUCC 40 MG/ML VL IV SCH (10:02)
[2024-02-22] MEDS ORDERED: PRED20TA2 PO (15:31)
[2024-02-22] MEDS ORDERED: CEPH250C PO (15:34)
== END 2024-02-22 18:43 | disposition home or self-care (01) | DRG 140 ==
LOC: EDBD 11:04 → ER 11:14 → TELE 14:00 → TELE-CENTR 21:33
PROVIDERS: ADMIT Internal Medicine Pulmonary Disease; ATTEND Internal Medicine Pulmonary Disease
DX: J44.1 Chronic obstructive pulmonary disease with (acute) exacerbation (principal); J96.01 Acute respiratory failure with hypoxia; I50.33 Acute on chronic diastolic (congestive) heart failure; J90 Pleural effusion, not elsewhere classified; E11.9 Type 2 diabetes mellitus without complications; D64.9 Anemia, unspecified; E78.5 Hyperlipidemia, unspecified; I11.0 Hypertensive heart disease with heart failure; K21.9 Gastro-esophageal reflux disease without esophagitis; Z88.1 Allergy status to other antibiotic agents; Z88.0 Allergy status to penicillin; Z95.1 Presence of aortocoronary bypass graft; Z90.710 Acquired absence of both cervix and uterus; Z83.3 Family history of diabetes mellitus; Z86.73 Personal history of transient ischemic attack (TIA), and cerebral infarction without residual deficits; I25.2 Old myocardial infarction; Z87.891 Personal history of nicotine dependence
CPT/HCPCS: 36415; 71045; 71275; 76604; 80048; 80053; 82962; 83880; 84484; 85025; 93005; 93970; 94640; G0378; J2470

== ENCOUNTER → 2024-03-06 | Outpatient (CLI) | payer MEDICARE, MEDICAID ==
[~2024-03-06] MED LIST changes: -CARV-217 PO; +CEPH250C PO; -DICY-89 PO; -FERR325T20 PO; -HYDR-4902 PO; -LISI-275 PO; +LISI10TA34 PO; +PRED20TA2 PO; -TIOTCAP IN
[2024-03-06 09:17] LABS: Basophils # (auto) 0.1 10 ^3/uL (0-0.2); Basophils % (auto) 0.7 % (0.0-2.0); Eosinophils # (auto) 0.4 10 ^3/uL (0-0.8); Eosinophils % (auto) 3.8 % (0.0-7.0); Hematocrit 28.9 % (36.0-46.0); Hemoglobin 9.6 g/dL (12.2-16.2); Lymphocytes # (auto) 0.5 10 ^3/uL (0.4-5.4); Lymphocytes % (auto) 4.5 % (10.0-50.0); Mean Corpuscular Hemoglobin 31.5 pg (28.0-32.0); Mean Corpuscular Hgb Conc. 33.2 g/dL (32.0-36.0); Mean Corpuscular Volume 94.7 fL (80.0-100.0); Monocytes # (auto) 0.8 10 ^3/uL (0-1.3); Monocytes % (auto) 8.2 % (0.0-12.0); Neutrophils # (auto) 8.4 10 ^3/uL (1.6-8.6); Neutrophils % (auto) 82.8 % (37.0-80.0); Nucleated Red Blood Cells % 0.1 %; Red Blood Cells 3.05 10^6/uL (4.0-5.20); Red Cell Distribution Width 14.5 % (11.8-14.3); White Blood Cell 10.1 10^3/uL (4.4-10.8)
[2024-03-06 09:46] LABS: Alanine Aminotransferase 18 U/L (7-40); Alkaline Phosphatase 105 U/L (46-116); Anion Gap 8 (5-15); Aspartate Aminotransferase 13 U/L (13-40); BUN/Creatinine Ratio 12.7 (10.0-20.0); Bilirubin, Direct 0.2 mg/dL (<0.3); Bilirubin, Total 0.4 mg/dL (0.2-1.0); Blood Urea Nitrogen 8 mg/dL (9-23); Calcium 9.1 mg/dL (8.7-10.4); Carbon Dioxide 29 mmol/L (20-30); Chloride 105 mmol/L (98-107); Cholesterol 95 mg/dL (< 200); Glucose 109 mg/dL (74-106); HDL Cholesterol 62 mg/dL (40-59); LDL Cholesterol 23 mg/dL (< 100); Potassium 3.5 mmol/L (3.5-5.1); Sodium 142 mmol/L (136-145); Total Protein 5.8 g/dL (5.7-8.2); Triglycerides 102 mg/dL (< 150)
[2024-03-06 10:51] LABS: % Iron Saturation 12.1 % (15-50)
[2024-03-07 14:39] LABS: Ferritin 32.6 ng/mL (10-291)
== END | disposition home or self-care (01) ==
LOC: LAB 08:58
PROVIDERS: ATTEND Specialist
DX: I10 Essential (primary) hypertension (principal); D51.9 Vitamin B12 deficiency anemia, unspecified; R73.03 Prediabetes; R68.89 Other general symptoms and signs; E03.9 Hypothyroidism, unspecified; D64.9 Anemia, unspecified; E78.5 Hyperlipidemia, unspecified; E61.1 Iron deficiency
CPT/HCPCS: 36415; 80053; 80061; 82248; 82607; 82728; 83540; 83550; 84443; 85025

== ENCOUNTER 2024-06-10 15:24 | Inpatient (IN) | payer MEDICARE, MEDICAID ==
[~2024-06-10] VITALS: Ht 160 cm; Wt 71.8 kg
[~2024-06-10 15:24] MED LIST changes: +DICY10CA PO; +FERR325T20 PO; +FLUT1AER17 IN; +ISOS1TAB29 PO
--- NOTE | 2024-06-10 16:31 | ED.PDOC ---
HPI Comments A 74 year old female brought in by EMS presents to the ED with a chief complaint of chest pain s/p vaccination onset today. Patient states she went to [facility] today to receive Flu, Pneumonia and Shingles Vaccines and shortly after began experiencing SOB, chest pain, describes it as a pressure sensation, rates the pain 7/10. She denies and nausea, vomiting, dizziness, headache. She has a past medical history of NV, CVA, COPD, CHF, DM, GERD, anemia, asthma, HTN, HLD. No ot her symptoms or modifying factors present at this time. Chief Complaint: Chest Pain Time Seen by MD: 15:54 Primary Care Provider: SOLE Reviewed Notes: Nurses Notes, Medications, Allergies Allergies: Coded Allergies: Azithromycin (Verified Allergy, Severe, 04/05/22) Doxycycline (Verified Allergy, Severe, 04/05/22) Nitrofurantoin (Verified Allergy, Severe, 04/05/22) Amoxicillin (Verified Allergy, Mild, 09/07/23) 09/07/23: SUPERVISOR PAINTING SHIPYARDJOHANNA, SPOKE WITH PATIENT. SHE POSSIBLY RECALLS TAKING AMOXICILLIN BEFORE, DENIES ANY RASHES, ITCHINESS, S/SX OF ANAPHYLAXIS. Ciprofloxacin (Verified Allergy, Mild, 09/07/23) 09/07/23: SUPERVISOR PAINTING SHIPYARDJOHANNA, SPOKE WITH PATIENT. SHE MENTIONED LAST TIME SHE RECIEVED CIPRO INJECTION WAS A WHILE AGO. PATIENT ENDORSED SMALL BUMPS ON THE SKIN BUT PER PATIENT COULD HAVE BEEN DUE TO FAST INJECTION. HAS TAKEN LEVAQUIN PO BEFORE AND DENIES ANY RASH, ITCHINESS, S/SX OF ANAPHYLAXIS. Home Meds Active Scripts Cephalexin (KEFLEX CAPSULE) 250 Mg Cp, 1 CAP PO QID for 5 Days, #28 CAP Prov:JENNIFER SANCHEZ RESIDENT 02/22/24 Prednisone (Prednisone) 20 Mg Tab, 20 MG PO BID for 4 Days, #8 MG Prov:JENNIFER SANCHEZ RESIDENT 02/22/24 Ondansetron Odt 4MG Tab (ZOFRAN PO) 4 Mg Tb, 4 MG PO Q8HR PRN, #14 TAB ODT TAB-DISSOLVE IN MOUTH, THEN SWALLOW Prov:VITO SCHUSTER MD 07/08/23 Isosorbide Mononitrate (Isosorbide Mononitrate ER) 60 Mg Tab, 60 MG PO DAILY for 30 Days, #30 TAB 3 Refills Prov:POLINA WARE MD 01/09/23 Reported Medications Carvedilol (Carvedilol) 25 Mg Tab, 1 TAB PO TID 02/22/24 Lisinopril (Lisinopril) 10 Mg Tab, 1 TAB PO DAILY 02/21/24 Albuterol Sulfate (Albuterol Sulfate Hfa) 108 Mcg/Act Aer, 1 PUFF INH QID 12/26/23 Tramadol Hcl (Tramadol Hcl) 50 Mg Tab, 50 MG PO BID PRN for PAIN SCALE 1 THRU 6, MG 10/11/23 Gwzpupohoef-Kvfvqpbiqao-Qtm C- (Glucosamine Chondroitin) Tab, 1500 MG PO BID, TAB 10/11/23 Cholecalciferol (VITAMIN D3) 2,000 Unit Tab, 50 MCG PO DAILY, #30 TAB 5 Refills 10/11/23 Zinc Sulfate (Zinc Sulfate) 220 Mg Cap, 50 MG PO DAILY for 30 Days, MG 10/11/23 Ascorbic Acid (VITAMIN C TABLET) 500 Mg Tb, 2000 MG PO DAILY, #30 TAB 3 Refills 10/11/23 Nitroglycerin (Nitroglycerin Lingual) 0.4 Mg/Frostproof Spr, 0.4 MG TL BID PRN for FOR CHEST PAIN, SPR 10/11/23 Magnesium Oxide (MAGNESIUM OXIDE) 400 Mg Tab, 400 MG PO DAILY, TAB 10/11/23 Fluticasone Furoate-Vilanterol (Fluticasone Furoate/Vilan 200-25 Mcg/Act) 1 Inh Inh, 1 PUFF INH DAILY Trelegy Ellipta 200/62.5/25 mg 09/07/23 Evolocumab (Repatha) 140 Mg/Ml Inj, 1 ML SC Q2WEEK Inject 1 mL subcutaneously every 2 weeks 09/07/23 Aspirin (Aspir-81) 81 Mg Tab, 1 TAB PO DAILY, #30 TAB 5 Refills 07/01/22 Potassium Chloride (K-Tabs) 10 Meq Tab, 1 TAB.CHEW PO DAILY 07/01/22 Pantoprazole Sodium Sesquihydr (Pantoprazole Sodium) 40 Mg Tab, 1 TAB PO DAILY 07/01/22 Ranolazine (Ranolazine ER) 500 Mg Tab, 1 TAB PO BID 07/01/22 Furosemide (Furosemide) 40 Mg Tab, 1 TAB PO DAILY 07/01/22 Atorvastatin Calcium (ATORVASTATIN CALCIUM) 40 Mg Tab, 1 TAB PO DAILY 07/01/22 Montelukast Sodium (MONTELUKAST SODIUM) 10 Mg Tab, 1 TAB PO DAILY 07/01/22 Ticagrelor Base (BRILINTA) 90 Mg Tab, 1 TAB PO BID 07/01/22 Information Source: Patient Mode of Arrival: EMS Severity: Moderate Timing: Hours Duration: Since onset Prehospital treatment: None Quality: Pressure Cardiac Risk Factors: Hyperlipidemia, HTN, Diabetes History of: NV Associated Signs and Symptoms: SOB Past Medical History PAST MEDICAL HISTORY: Anemia, Asthma, CHF, COPD, CVA, DM, GERD, High Lipids, HTN, NV Surgical History: CABG, Cholecystectomy, Hysterectomy, Pacemaker, PTCA CORRECTIONAL COUNSELOR History: No Pertinent CORRECTIONAL COUNSELOR History, Ovarian Cysts Family History Family History: Reviewed,noncontributory to illness, Family hx of DM, Family hx of Cancer, Family hx of heart fran Social History Smoker: Quit Greater Than 1 Year Alcohol: Denies ETOH Use Drugs: Denies Drug Use Lives In: Home Constitutional: denies: chills, diaphoresis, fatigue, fever, malaise, sweats, weakness, others EENTM: denies: blurred vision, double vision, ear bleeding, ear discharge, ear drainage, ear pain, ear ringing, eye pain, eye redness, hearing loss, mouth pain, mouth swelling, nasal discharge, nose bleeding, nose congestion, nose pain, photophobia, tearing, throat pain, throat swelling, voice changes, others Respiratory: reports: shortness of breath; denies: cough, hemoptysis, orthopnea, SOB at rest, SOB with excertion, stridor, wheezing, others Cardiovascular: reports: chest pain; denies: dizzy spells, diaphoresis, Dyspnea on exertion, edema, irregular heart beat, left arm pain, lightheadedness, palpitations, PND, syncope, others Gastrointestinal: denies: abdomen distended, abdominal pain, blood streaked bowels, constipated, diarrhea, dysphagia, difficulty swallowing, hematemesis, melena, nausea, poor appetite, poor fluid intake, rectal bleeding, rectal pain, vomiting, others Genitourinary: denies: abnormal vagina bleeding, burning, dyspareunia, dysuria, flank pain, frequency, hematuria, incontinence, pain, , vagina discharge, urgency, others Neurological: denies: dizziness, fainting, headache, left sided numbness, left sided weakness, numbness, paresthesia, pre-existing deficit, right sided numbness, right sided weakness, seizure, speech problems, tingling, tremors, weakness, others Musculoskeletal: denies: back pain, gout, joint pain, joint swelling, muscle pain, muscle stiffness, neck pain, others Integumetry: denies: bruises, change in color, change in hair/nails, dryness, laceration, lesions, lumps, rash, wounds, others Allergic/Immunocompromised: denies: Difficulty Healing, Frequent Infections, Hives, Itching, others Hematologic/Lymphatic: denies: anemia, blood clots, easy bleeding, easy bruising, swollen glands, others Endocrine: denies: excessive hunger, excessive sweating, excessive thirst, excessive urination, flushing, intolerance to cold, intolerance to heat, unexplained weight gain, unexplained weight loss, others Psychiatric: denies: anxiety, bipolar disorder, depression, hopeless, panic disorder, schizophrenia, sleepless, suicidal, others All Other Systems: Reviewed and Negative Physical Exam General Appearance: Moderate Distress HEENT: Normal ENT Inspection, Pharynx Normal, TMs Normal Neck: Full Range of Motion, Non-Tender, Normal, Normal Inspection Respiratory: Chest Non-Tender, Lungs Clear, No Accessory Muscle Use, No Respiratory Distress, Normal Breath Sounds Cardiovascular: No Edema, No JVD, No Murmur, No Gallop, Normal Peripheral Pulses, Regular Rate/Rhythm, Other (Pacemaker to the left chest) Breast Exam: Deferred Gastrointestinal: No Organomegaly, Non Tender, No Pulsatile Mass, Normal Bowel Sounds, Soft Genitalia: Deferred Pelvic: Deferred Rectal: Deferred Extremities: No calf tenderness, Normal capillary refill, No pedal edema, Tender (Mild tenderness to the left shoulder around the site of her injection of the vaccine for shingles) Musculoskeletal : Apperance: Normal Neurologic: Alert, chain repairer II-XII nml as Tested, No Motor Deficits, Normal Affect, Normal Mood, No Sensory Deficits Cerebellar Function: Unable to Test Reflexes: Normal Skin: Dry, Normal Color, Warm Lymphatic: No Adenopathy EKG EKG : Pulse Rate (adult): 71 Carr: Normal Cardiac Rhythm: Paced ST: Nonsp Was a procedure done? Was a procedure done?: No CP Differential Dx Differential Diagnosis: A-fib, A-Flutter, Angina, NV, Pulmonary Embolus Differential Diagnosis: CHF X-Ray, Labs, Meds, VS Vital Signs Date Time Temp Pulse Resp B/P (MAP) Pulse Ox O2 Delivery O2 Flow Rate FiO2 06/10/24 16:22 71 06/10/24 15:27 87 06/10/24 15:27 97.4 83 20 153/82 (105) 99 Lab Test 06/10/24 16:28 Range/Units White Blood Count 10.9 H 4.4-10.8 10^3/uL Red Blood Count 3.68 L 4.0-5.20 10^6/uL Hemoglobin 11.4 L 12.2-16.2 g/dL Hematocrit 34.5 L 36.0-46.0 % Mean Corpuscular Volume 94.0 80.0-100.0 fL Mean Corpuscular Hemoglobin 30.9 28.0-32.0 pg Mean Corpuscular Hemoglobin Concent 32.9 32.0-36.0 g/dL Red Cell Distribution Width 16.3 H 11.8-14.3 % Platelet Count 221 140-450 10^3/uL Mean Platelet Volume 7.6 6.9-10.8 fL Neutrophils (%) (Auto) 77.0 37.0-80.0 % Lymphocytes (%) (Auto) 8.3 L 10.0-50.0 % Monocytes (%) (Auto) 6.8 0.0-12.0 % Eosinophils (%) (Auto) 7.1 H 0.0-7.0 % Basophils (%) (Auto) 0.8 0.0-2.0 % Neutrophils # (Auto) 8.4 1.6-8.6 10 ^3/uL Lymphocytes # (Auto) 0.9 0.4-5.4 10 ^3/uL Monocytes # (Auto) 0.7 0-1.3 10 ^3/uL Eosinophils # (Auto) 0.8 0-0.8 10 ^3/uL Basophils # (Auto) 0.1 0-0.2 10 ^3/uL Nucleated Red Blood Cells 0.0 % Sodium Level 143 136-145 mmol/L Potassium Level 3.7 3.5-5.1 mmol/L Chloride Level 109 H 98-107 mmol/L Carbon Dioxide Level 26 20-31 mmol/L Anion Gap 8 5-15 Blood Urea Nitrogen 8 L 9-23 mg/dL Creatinine 0.64 0.550-1.02 mg/dL Glomerular Filtration Rate Calc 92 >90 mL/min BUN/Creatinine Ratio 12.5 10.0-20.0 Serum Glucose 94 74-106 mg/dL Calcium Level 9.7 8.7-10.4 mg/dL Troponin I High Sensitivity 6 </=34 ng/L B-Type Natriuretic Peptide Pending Current Medications Medications (Trade) Dose Ordered Sig/Romaine Route Start Time Stop Time Status Last Admin Aspirin 162 mg ONCE ONCE PO 06/10/24 17:30 06/10/24 17:31 DC 06/10/24 17:29 IV Hep-Lock was established The patient was given aspirin 162 mg by mouth The CBC shows an elevated white blood cell count of 10.9 The rest of the CBC and chemistry panel are within normal limits At this time, the patient was being admitted to the hospitalist The chest x-ray shows: CHEST RADIOGRAPH Indication:cp Technique: Single frontal view of the chest was obtained Comparison: XY CHEST PORTABLE on DOS: 02/20/24, XY CHEST PORTABLE on DOS: 12/25/23, XY CHEST PORTABLE on DOS: 10/10/23 Findings/impression: No active cardiopulmonary disease or significant interval change. Left-sided cardiac device with intact leads. Coarse interstitial opacities predominantly in the bilateral mid to lower lung zones. Low lung volumes with bronchovascular crowding. Postsurgical changes of the mediastinum. No pneumothorax. At this time, the patient was admitted Images Reviewed?: Images reviewed and evaluated by me Time of 1ST Reevaluation: 16:24 Reevaluation 1ST: Unchanged Patient Education/Counseling: Diagnosis, Treatment, Prognosis Family Education/Counseling: No Family Present Departure 1 Departure Time of Disposition: 17:51 Impression: Primary Impression: Acute myocardial ischemia Additional Impressions: Generalized weakness Vaccine reaction Qualified Codes: T50.Z95A - Adverse effect of other vaccines and biological substances, initial encounter Disposition: 09 ADMITTED INPATIENT Admit to: [facility] Condition: Fair Critical Care Note Critical Care Time?: Yes (35 min-critical care time only) Stability Stability form required: Yes Unstable for transfer: Telemetry monitoring (Telemetry monitoring required), ED Physician Assesment (Clinical assesment) Heart Score Heart Score: Heart Score Response (Comments) Value History Moderate Suspicious 1 EKG Repolarization Disturb 1 Age >65 2 Risk Factors >3 or Hx ASHD 2 Troponin Normal limit 0 Total 6 I personally scribed for VEGA GRIFFIN MD ([email or web address]) on 06/10/24 at 16:31. Electronically submitted by Kinga Marcum ([email or web address]). VEGA GRIFFIN MD Jun 10, 2024 16:31
[2024-06-10 16:53] LABS: Basophils # (auto) 0.1 10 ^3/uL (0-0.2); Basophils % (auto) 0.8 % (0.0-2.0); Eosinophils # (auto) 0.8 10 ^3/uL (0-0.8); Eosinophils % (auto) 7.1 % (0.0-7.0); Hematocrit 34.5 % (36.0-46.0); Hemoglobin 11.4 g/dL (12.2-16.2); Lymphocytes # (auto) 0.9 10 ^3/uL (0.4-5.4); Lymphocytes % (auto) 8.3 % (10.0-50.0); Mean Corpuscular Hemoglobin 30.9 pg (28.0-32.0); Mean Corpuscular Hgb Conc. 32.9 g/dL (32.0-36.0); Monocytes # (auto) 0.7 10 ^3/uL (0-1.3); Monocytes % (auto) 6.8 % (0.0-12.0); Neutrophils # (auto) 8.4 10 ^3/uL (1.6-8.6); Platelet Count (auto) 221 10^3/uL (140-450); Red Blood Cells 3.68 10^6/uL (4.0-5.20); Red Cell Distribution Width 16.3 % (11.8-14.3); White Blood Cell 10.9 10^3/uL (4.4-10.8)
[2024-06-10 16:59] LABS: Chloride 109 mmol/L (98-107); Potassium 3.7 mmol/L (3.5-5.1); Sodium 143 mmol/L (136-145)
[2024-06-10 17:00] LABS: Anion Gap 8 (5-15); Calcium 9.7 mg/dL (8.7-10.4); Carbon Dioxide 26 mmol/L (20-31)
[2024-06-10 17:05] LABS: BUN/Creatinine Ratio 12.5 (10.0-20.0); Blood Urea Nitrogen 8 mg/dL (9-23); Glucose 94 mg/dL (74-106)
[2024-06-10] MEDS: ASPirin 81 mg TAB PO ONE (17:29)
--- NOTE | 2024-06-10 17:42 | DVH ---
CHEST RADIOGRAPH Indication:cp Technique: Single frontal view of the chest was obtained Comparison: XY CHEST PORTABLE on DOS: 02/20/24, XY CHEST PORTABLE on DOS: 12/25/23, XY CHEST PORTABLE o n DOS: 10/10/23 Findings/impression: No active cardiopulmonary disease or significant interval change. Left-sided ca rdiac device with intact leads. Coarse interstitial opacities predominantly in the bilateral mid to lower lung zones. Low lung volumes with bronchovascular crowding. Postsurgical changes of the mediast inum. No pneumothorax.
[2024-06-10 18:05] VITALS: PULSE 76; RESP 20; O2SAT 100
[2024-06-10] MEDS ORDERED: DOCUSATE SOD 100 MG CAP PO PRN (18:30)
[2024-06-10] MEDS ORDERED: ACETAMINOPHEN 325 MG TAB PO PRN (18:30)
--- NOTE | 2024-06-10 19:13 | ECG ---
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
--- NOTE | 2024-06-10 19:13 | ECG ---
[facility] [place] Test Date: 2024-06-10 Test Time: 15:27:34 Pat Name: EUN PAIZ Department: ER Room: 0220 Gender: F Motel Keeper: IC : 1950 Requested By: WONG TURNER Order Number: [id number] Reading MD: Bobby Ramey Measurements Intervals [place] Rate: 87 P: 96 WI: 142 QRS: 14 QRSD: 101 T: 39 QT: 402 QTc: 484 Interpretive Statements Atrial-paced complexes Electronically Signed On 06-13-2024 11:17:06 PST by Bobby Ramey Please click the below link to view image of tracing.
--- NOTE | 2024-06-10 20:03 | DVHHP2 ---
History of Present Illness Reason for Visit: Acute myocardial ischemia History of Present Illness The patient is a 74 years old female with multiple past medical history including COPD, DM, CHF, UT, and hypertension who presented to [facility] ED with complaint of chest pain after vaccination today. Patient report s she went to [facility] today to receive Flu, Pneumonia, and Shingles Vaccines, afterwards she began experiencing SOB, chest pain, describes it as a pressure sensation, rates the pain 7/10 numeric scale, getting worse that prompted this visit. The patient was seen and evaluated in the ED, laboratory data shows WBC 10.9, platelets 221, sodium 143, potassium 3.7, BUN 8, creatinine 0.64, glucose 94, troponin 6, BNP 256.38, blood pressure 153/62, heart rate 72, temperature 97.4 F, O2 saturation 99% on room air. Chest x-ray show no acute cardiopulmonary disease. Please see medication orders section in the computer. On my assessment, patient denied chest pain at this moment, no headache, no dizziness, no shortness a breath, no nausea, no vomiting, no fever, no chills. Patient was admitted for further evaluation and medical management. Past Medical History Anemia, Asthma, CHF, COPD, CVA, DM, GERD, High Lipids, HTN, UT Past Surgical History CABG, Cholecystectomy, Hysterectomy, Pacemaker, PTCA Family History Reviewed, noncontributory to the management of this case. Past Social History The patient lives at home, denies smoking, alcohol or illicit drugs abuse. Review of Systems Constitutional: No: Fever, Chills, Sweats, Weakness, Malaise, Other Eyes: No: Pain, Vision change, Conjunctivae inflammation, Eyelid inflammation, Other, Redness ENT: No: Ear pain, Ear discharge, Nose pain, Nose discharge, Nose congestion, Mouth pain, Mouth swelling, Throat pain, Throat swelling, Other Respiratory: Shortness of breath; No: Cough, Dry, SOB with excertion, Wheezing, Hemoptysis, Pleuritic Pain, Sputum, Wheezing, Other Cardiovascular: Chest Pain; No: Palpitations, Orthopnea, Paroxysmal Noc. Dyspnea, Edema, Lt Headedness, Other Gastrointestinal: No: Nausea, Vomiting, Abdominal Pain, Diarrhea, Constipation, Melena, Hematochezia, Other Genitourinary: No Dysuria, No Frequency, No Incontinence, No Hematuria, No Retention, No Other Musculoskeletal: No: other, neck pain, shoulder pain, arm pain, back pain, hand pain, leg pain, foot pain Skin: No: Rash, Lesions, Jaundice, Bruising, Other Neurological: No: Weakness, Numbness, Incoordination, Change in speech, Confusion, Seizures, Other Allergies: Coded Allergies: Azithromycin (Verified Allergy, Severe, 04/05/22) Doxycycline (Verified Allergy, Severe, 04/05/22) Nitrofurantoin (Verified Allergy, Severe, 04/05/22) Amoxicillin (Verified Allergy, Mild, 09/07/23) 09/07/23: SHOT BLAST EQUIPMENT OPERATORJOHANNA, SPOKE WITH PATIENT. SHE POSSIBLY RECALLS TAKING AMOXICILLIN BEFORE, DENIES ANY RASHES, ITCHINESS, S/SX OF ANAPHYLAXIS. Ciprofloxacin (Verified Allergy, Mild, 09/07/23) 09/07/23: SHOT BLAST EQUIPMENT OPERATOR, JOHANNA, SPOKE WITH PATIENT. SHE MENTIONED LAST TIME SHE RECIEVED CIPRO INJECTION WAS A WHILE AGO. PATIENT ENDORSED SMALL BUMPS ON THE SKIN BUT PER PATIENT COULD HAVE BEEN DUE TO FAST INJECTION. HAS TAKEN LEVAQUIN PO BEFORE AND DENIES ANY RASH, ITCHINESS, S/SX OF ANAPHYLAXIS. Medications Current Medications Medications Dose Ordered Sig/Romaine Route Start Time Stop Time Status Last Admin Dose Admin Carvedilol 12.5 mg Q12HR PO 06/10/24 22:00 Aspirin 81 mg DAILY PO 06/11/24 10:00 Atorvastatin Calcium 20 mg HS PO 06/10/24 22:00 Pantoprazole Sodium 40 mg DAILY IV 06/11/24 10:00 Furosemide 40 mg DAILY IV 06/11/24 10:00 Sodium Chloride 10 ml Q8HR IV 06/10/24 22:00 Acetaminophen/ Hydrocodone Bitart 1 tab Q4HP PRN PO 06/10/24 18:30 Ondansetron HCl 4 mg Q4HP PRN IV 06/10/24 18:30 Docusate Sodium 100 mg BIDPRN PRN PO 06/10/24 18:30 Acetaminophen 650 mg Q6HP PRN PO 06/10/24 18:30 Exam Vital Signs Vital Signs Date Time Temp Pulse Resp B/P (MAP) Pulse Ox O2 Delivery O2 Flow Rate FiO2 06/10/24 18:05 76 20 188/86 (120) 100 06/10/24 18:05 Nasal Cannula* 4 36 06/10/24 15:27 97.4 General Appearance: Alert, Oriented X3, Cooperative, No acute distress HEENT: Atraumatic, PERRLA, EOMI, Mucous membr. moist/pink Respiratory: Clear to auscultation, Normal air movement Cardiovascular: Regular rate, Normal S1, Normal S2, No murmurs Abdominal: Normal bowel sounds, Soft, No tenderness, No hepatospenomegaly, No masses Extremities: No clubbing, No cyanosis, No edema, Normal pulses, No tenderness/swelling Skin: No rashes, No breakdown, No significant lesion Neuro: Normal speech, Normal tone, Sensation intact, Cranial nerves 3-12 NL, Reflexes 2+, Other (Generalized weakness) Psych/Mental Status: Mental status NL, Mood NL Labs/Xrays Labs Test 06/10/24 19:58 06/10/24 16:28 Range/Units White Blood Count 10.9 H 4.4-10.8 10^3/uL Red Blood Count 3.68 L 4.0-5.20 10^6/uL Hemoglobin 11.4 L 12.2-16.2 g/dL Hematocrit 34.5 L 36.0-46.0 % Mean Corpuscular Volume 94.0 80.0-100.0 fL Mean Corpuscular Hemoglobin 30.9 28.0-32.0 pg Mean Corpuscular Hemoglobin Concent 32.9 32.0-36.0 g/dL Red Cell Distribution Width 16.3 H 11.8-14.3 % Platelet Count 221 140-450 10^3/uL Mean Platelet Volume 7.6 6.9-10.8 fL Neutrophils (%) (Auto) 77.0 37.0-80.0 % Lymphocytes (%) (Auto) 8.3 L 10.0-50.0 % Monocytes (%) (Auto) 6.8 0.0-12.0 % Eosinophils (%) (Auto) 7.1 H 0.0-7.0 % Basophils (%) (Auto) 0.8 0.0-2.0 % Neutrophils # (Auto) 8.4 1.6-8.6 10 ^3/uL Lymphocytes # (Auto) 0.9 0.4-5.4 10 ^3/uL Monocytes # (Auto) 0.7 0-1.3 10 ^3/uL Eosinophils # (Auto) 0.8 0-0.8 10 ^3/uL Basophils # (Auto) 0.1 0-0.2 10 ^3/uL Nucleated Red Blood Cells 0.0 % Sodium Level 143 136-145 mmol/L Potassium Level 3.7 3.5-5.1 mmol/L Chloride Level 109 H 98-107 mmol/L Carbon Dioxide Level 26 20-31 mmol/L Anion Gap 8 5-15 Blood Urea Nitrogen 8 L 9-23 mg/dL Creatinine 0.64 0.550-1.02 mg/dL Glomerular Filtration Rate Calc 92 >90 mL/min BUN/Creatinine Ratio 12.5 10.0-20.0 Serum Glucose 94 74-106 mg/dL Calcium Level 9.7 8.7-10.4 mg/dL B-Type Natriuretic Peptide 256.38 0-100 pg/mL PATIENT: EUN PAIZ ACCT: [id number] UNIT: [id number] : 1950 LOC: ER ROOM / BED: / AGE / SEX: 74 / F ADM STATUS: REG ER SERVICE [id number] ORDERING PHYSICIAN: VEGA GRIFFIN MD PROCEDURE(s): CXRP - CHEST PORTABLE REASON: cp ORDER NUMBER(s): [id number], ACCESSION NUMBER(s): [id number] CHEST RADIOGRAPH Indication:cp Technique: Single frontal view of the chest was obtained Comparison: XY CHEST PORTABLE on DOS: 02/20/24, XY CHEST PORTABLE on DOS: 12/25/23, XY CHEST PORTABLE on DOS: 10/10/23 Findings/impression: No active cardiopulmonary disease or significant interval change. Left-sided cardiac device with intact leads. Coarse interstitial opacities predominantly in the bilateral mid to lower lung zones. Low lung volumes with bronchovascular crowding. Postsurgical changes of the mediastinum. No pneumothorax. Assessment/Plan Assessment/Plan Acute myocardial ischemia Generalized weakness Vaccine reaction Acute exacerbation of congestive heart failure Adverse effect of other vaccines and biological substances, initial encounter Plan 1. Admit to telemetry unit 2. Breathing treatment 3. Pain control management 4. Management of fluids and electrolytes 5. Consultation for hospitalist 6. Diagnostic tests-chest x-ray 7. DVT prophylaxis -on aspirin 8. Repeat labs CBC, CMP in a.m. 9. Continue with current medical management 10. Treatment plan discussed with patient and RN. Patient verbalized understanding. Plan discussed with: Patient, Other (RN) My Orders Orders - JOSÉ MIGUEL MELGOZA DNP Procedure Category Date Status Time Carvedilol Tablet PHA 06/10/24 In Process (Coreg Tablet) 22:00 Aspirin Tablet PHA 06/11/24 In Process 10:00 Atorvastatin (Lipitor) PHA 06/10/24 In Process 22:00 Pantoprazole PHA 06/11/24 In Process (Protonix) 10:00 Furosemide Injection PHA 06/11/24 In Process (Lasix Injection) 10:00 Allergies LESLIE 06/10/24 In Process 18:19 Code Status CODE 06/10/24 Transmitted 18:19 Sodium Chloride Lock PHA 06/10/24 In Process (Saline Lock Ns) 22:00 Oxygen Per Hour RT 06/10/24 Transmitted 18:19 Hydrocodone-Acet PHA 06/10/24 In Process 5/325mg Tab ([place] 18:30 Ondansetron Hcl PHA 06/10/24 In Process (Zofran) 18:30 Docusate Sodium PHA 06/10/24 In Process Capsule (Colace 18:30 Complete Blood Count LAB 06/11/24 Verified 04:00 Comprehensive LAB 06/11/24 Verified Metabolic Panel 04:00 Cardiac DIET 06/10/24 Transmitted Diet-2gna,Lofat,Lochol Dinner Condition: Serious LESLIE 06/10/24 In Process 18:19 Acetaminophen Tablet PHA 06/10/24 In Process (Tylenol Tablet) 18:30 Bedrest With Bathroom LESLIE 06/10/24 In Process Privileg 18:19 Sequential LESLIE 06/10/24 In Process Compression Device Problem List: (1) Acute myocardial ischemia (2) Generalized weakness (3) Vaccine reaction (4) Acute exacerbation of congestive heart failure (5) Adverse effect of other vaccines and biological substances, initial encounter Date of Service: Jun 10, 2024 Billing Provider: JOSÉ MIGUEL MELGOZA DNP Common Visit Codes: [id number] INP/OBS CARE (HIGH) JOSÉ MIGUEL MELGOZA DNP Jun 10, 2024 20:03
[2024-06-10] MEDS ORDERED: MORPHINE SULFATE INJ 2 MG/ml SYRG IV PRN (20:15)
[2024-06-10] MEDS ORDERED: NITROGLYCERIN 0.4 MG SL TAB SL PRN (20:15)
[2024-06-10] MEDS: ATORVASTATIN 20 MG TAB PO SCH (22:13)
[2024-06-10] MEDS: SODIUM CHLOR 0.9% PF (SALINE LOCK) 10ML VIAL/SYR IV SCH (22:13)
[2024-06-10] MEDS: CARVEDILOL 12.5 MG TAB PO SCH (22:26)
[2024-06-10 23:10] VITALS: BP 144/69; PULSE 73; RESP 16; TEMP 97.5; O2SAT 99
[2024-06-11] VITALS (15 sets, daily range): BP systolic 113–175; BP diastolic 56–97; PULSE 60–98; RESP 14–19; TEMP 97.9–98.3; O2SAT 92–100
[2024-06-11 07:14] LABS: Basophils # (auto) 0.1 10 ^3/uL (0-0.2); Basophils % (auto) 0.6 % (0.0-2.0); Eosinophils # (auto) 0.5 10 ^3/uL (0-0.8); Eosinophils % (auto) 6.1 % (0.0-7.0); Hematocrit 31.6 % (36.0-46.0); Hemoglobin 10.3 g/dL (12.2-16.2); Lymphocytes # (auto) 0.5 10 ^3/uL (0.4-5.4); Lymphocytes % (auto) 5.3 % (10.0-50.0); Mean Corpuscular Hemoglobin 30.7 pg (28.0-32.0); Mean Corpuscular Hgb Conc. 32.6 g/dL (32.0-36.0); Mean Corpuscular Volume 94.2 fL (80.0-100.0); Monocytes # (auto) 0.7 10 ^3/uL (0-1.3); Monocytes % (auto) 7.6 % (0.0-12.0); Neutrophils % (auto) 80.4 % (37.0-80.0); Nucleated Red Blood Cells % 0.1 %; Platelet Count (auto) 172 10^3/uL (140-450); Red Blood Cells 3.36 10^6/uL (4.0-5.20); Red Cell Distribution Width 15.9 % (11.8-14.3); White Blood Cell 8.7 10^3/uL (4.4-10.8)
[2024-06-11 07:32] LABS: Alanine Aminotransferase 11 U/L (7-40); Alkaline Phosphatase 82 U/L (46-116); Anion Gap 7 (5-15); BUN/Creatinine Ratio 17.7 (10.0-20.0); Blood Urea Nitrogen 11 mg/dL (9-23); Calcium 9.4 mg/dL (8.7-10.4); Carbon Dioxide 27 mmol/L (20-31); Chloride 109 mmol/L (98-107); Glucose 84 mg/dL (74-106); Potassium 3.8 mmol/L (3.5-5.1); Sodium 143 mmol/L (136-145)
[2024-06-11 07:33] LABS: Albumin 3.8 g/dL (3.2-4.8); Aspartate Aminotransferase 15 U/L (13-40); Bilirubin, Total 0.3 mg/dL (0.2-1.0); Total Protein 5.7 g/dL (5.7-8.2)
[2024-06-11] MEDS: FUROSEMIDE 40 MG/4 ML VIAL IV SCH (10:49)
[2024-06-11] MEDS: PANTOPRAZOLE 40 MG/10 ML VIAL INJ IV SCH (10:50)
[2024-06-11] MEDS: ASPirin 81 mg TAB PO SCH (10:51)
--- NOTE | 2024-06-11 11:06 | DVHPN2 ---
Progress Note Date Seen: Jun 11, 2024 Medical Necessity Reason Pt with a Central, PICC or Fol: No Subjective Patient reports: No new complaints Review of Systems: HEENT:Normal, CVS:Normal, RESPIRATORY:Normal, GI:Normal, :Normal, MSK:Normal, NEURO:Normal Objective vital signs Vital Sign Date Time Temp Pulse Resp B/P (MAP) Pulse Ox O2 Delivery O2 Flow Rate FiO2 06/11/24 09:00 97.9 72 17 155/69 (97) 96 97.9 06/10/24 23:07 Nasal Cannula* 4 36 Total Intake and Output 06/10/24 06/10/24 06/11/24 15:00 23:00 07:00 Intake Total 0 ml Balance 0 ml medications Current Medications Medications Dose Ordered Sig/Romaine Route Start Time Stop Time Status Last Admin Dose Admin Carvedilol 12.5 mg Q12HR PO 06/10/24 22:00 06/10/24 22:26 12.5 MG Aspirin 81 mg DAILY PO 06/11/24 10:00 Atorvastatin Calcium 20 mg HS PO 06/10/24 22:00 06/10/24 22:13 20 MG Pantoprazole Sodium 40 mg DAILY IV 06/11/24 10:00 Furosemide 40 mg DAILY IV 06/11/24 10:00 Sodium Chloride 10 ml Q8HR IV 06/10/24 22:00 06/11/24 06:29 10 ML Acetaminophen/ Hydrocodone Bitart 1 tab Q4HP PRN PO 06/10/24 18:30 Ondansetron HCl 4 mg Q4HP PRN IV 06/10/24 18:30 Docusate Sodium 100 mg BIDPRN PRN PO 06/10/24 18:30 Acetaminophen 650 mg Q6HP PRN PO 06/10/24 18:30 Nitroglycerin 0.4 mg Q5MINP PRN SL 06/10/24 20:15 Morphine Sulfate 2 mg Q30M PRN IV 06/10/24 20:15 Examination: GENERAL:Normal, HEENT:Normal, NECK:Normal, LUNGS:Normal, LUNGS:Abnormal (ON OXYGEN, BILATERAL RALES), CVS:Normal, ABDOMEN:Normal, MSK:Normal, SKIN:Normal, NEURO:Normal, :Normal laboratory and microbiology Laboratory Tests 06/11/24 05:36 Test 06/11/24 05:36 Range/Units Serum Glucose 84 74-106 mg/dL Problem List/Assessment/Plan Problem List/Assessment/Plan #1 acute on chronic diastolic heart failure: lasix iv #2 cad s/p cabg #3 s/p pacer #4 copd with exacerbation: cont meds #5 chronic resp failure #6 hyperlipidemia #7 htn #8 fibromyalgia advance care planning- full code- time spent 19 mins Plan discussed with: Patient Date of Service: Jun 11, 2024 Billing Provider: CALE FAGAN MD Common Visit Codes: [id number] INP/OBS CARE(HIGH) Secondary Visit Codes: [id number] CARE PLAN 30 MINUTES CALE FAGAN MD Jun 11, 2024 11:06
[2024-06-11] MEDS: HYDROcodone-ACET 5/325MG TAB PO PRN (11:12)
[2024-06-11] MEDS: LEVALBUTEROL HCL 1.25 MG/3 ML NEB NEB SCH (12:01)
[2024-06-11] MEDS: IPRATROPIUM BROM 0.5 MG/2.5ML INH SOL NEB SCH (12:01)
[2024-06-11] MEDS: LISINOPRIL 5 MG TAB PO ONE (14:11)
[2024-06-11 14:25] LABS: Urine Bacteria None Seen /hpf (None Seen); Urine WBC None Seen /hpf (0 - 5)
[2024-06-11 14:31] LABS: Urine Blood Negative /uL (Negative); Urine Clarity Clear (Clear); Urine Color Colorless (Yellow); Urine Hyaline Cast FEW /lpf (0 - 2); Urine Protein, UAD Negative (Negative); Urine Specific Gravity 1.006 (1.001-1.035); Urine Urobilinogen Normal (Negative)
--- NOTE | 2024-06-11 16:25 | DVHINCON2 ---
Date of service: Jun 11, 2024 History of Present Illness HPI Patient is a 74-year-old female who presented to the hospital with chest discomfort and shortness of breath. She mentioned that she had 3 different vaccinations in the same day (flu/pneumonia/shingles) which was followed with shortness of breath/chest discomfort. Cardiology is involved for cardiac aspects of care. She is known to our practice from outside and before. Serial troponin has been negative. She denies chest discomfort and shortness of breath at the time of evaluation. Home Meds Active Scripts Ondansetron Odt 4MG Tab (ZOFRAN PO) 4 Mg Tb, 4 MG PO Q8HR PRN, #14 TAB ODT TAB-DISSOLVE IN MOUTH, THEN SWALLOW Prov:VITO SCHUSTER MD 07/08/23 Isosorbide Mononitrate (Isosorbide Mononitrate ER) 60 Mg Tab, 60 MG PO DAILY for 30 Days, #30 TAB 3 Refills Prov:POLINA WARE MD 01/09/23 Reported Medications Carvedilol (Carvedilol) 25 Mg Tab, 1 TAB PO TID 02/22/24 Lisinopril (Lisinopril) 10 Mg Tab, 1 TAB PO DAILY 02/21/24 Albuterol Sulfate (Albuterol Sulfate Hfa) 108 Mcg/Act Aer, 1 PUFF INH QID 12/26/23 Tramadol Hcl (Tramadol Hcl) 50 Mg Tab, 50 MG PO BID PRN for PAIN SCALE 1 THRU 6, MG 10/11/23 Oloeuqjudlb-Cbtdzpofaca-Nvt C- (Glucosamine Chondroitin) Tab, 1500 MG PO BID, TAB 10/11/23 Cholecalciferol (VITAMIN D3) 2,000 Unit Tab, 50 MCG PO DAILY, #30 TAB 5 Refills 10/11/23 Zinc Sulfate (Zinc Sulfate) 220 Mg Cap, 50 MG PO DAILY for 30 Days, MG 10/11/23 Ascorbic Acid (VITAMIN C TABLET) 500 Mg Tb, 2000 MG PO DAILY, #30 TAB 3 Refills 10/11/23 Nitroglycerin (Nitroglycerin Lingual) 0.4 Mg/[place] Spr, 0.4 MG TL BID PRN for FOR CHEST PAIN, SPR 10/11/23 Magnesium Oxide (MAGNESIUM OXIDE) 400 Mg Tab, 400 MG PO DAILY, TAB 10/11/23 Fluticasone Furoate-Vilanterol (Fluticasone Furoate/Vilan 200-25 Mcg/Act) 1 Inh Inh, 1 PUFF INH DAILY Trelegy Ellipta 200/62.5/25 mg 09/07/23 Evolocumab (Repatha) 140 Mg/Ml Inj, 1 ML SC Q2WEEK Inject 1 mL subcutaneously every 2 weeks 09/07/23 Aspirin (Aspir-81) 81 Mg Tab, 1 TAB PO DAILY, #30 TAB 5 Refills 07/01/22 Potassium Chloride (K-Tabs) 10 Meq Tab, 1 TAB.CHEW PO DAILY 07/01/22 Pantoprazole Sodium Sesquihydr (Pantoprazole Sodium) 40 Mg Tab, 1 TAB PO DAILY 07/01/22 Ranolazine (Ranolazine ER) 500 Mg Tab, 1 TAB PO BID 07/01/22 Furosemide (Furosemide) 40 Mg Tab, 1 TAB PO DAILY 07/01/22 Atorvastatin Calcium (ATORVASTATIN CALCIUM) 40 Mg Tab, 1 TAB PO DAILY 07/01/22 Montelukast Sodium (MONTELUKAST SODIUM) 10 Mg Tab, 1 TAB PO DAILY 07/01/22 Ticagrelor Base (BRILINTA) 90 Mg Tab, 1 TAB PO BID 07/01/22 Past Medical History Others Past medical history includes diabetes mellitus, hyperlipidemia, hypertension, diastolic heart failure, peripheral artery disease, GERD, anxiety, anemia, asthma, coronary artery disease, status post CABG and PCI, status post pacemaker implantation ([employer]tr[employer]), status post old CVA, COPD on home oxygen, fibromyalgia, pulmonary hypertension, history of poor functional status, history of GI bleeding, pulmonary fibrosis, hiatal hernia, ex-smoker, status post gold cholecystectomy/hysterectomy. Is known to have closed grafts for CABG. Has had high risk PCI/left main in [facility] (few years back). Does have history of abnormal nuclear stress test and the plan has been to manage her medically. She is kept on Aspirin and Brilinta. She is ex-smoker. Patient Family History: Alcoholism FHx: lung cancer Hypertension G8 FATHER Secondary malignant neoplasm of lung G8 MOTHER Smoker: Quit Lives with: With family Review of Systems Constitutional: No symptom reported Ears, Nose, & Throat: No symptom reported Pulmonary/Respiratory: Dyspnea Cardiovascular: Chest Pain All Other Systems Fourteen point review of system was performed. Relevant findings as per above and as per HPI. Otherwise negative per H&P Exam Vital Signs Vital Signs Date Time Temp Pulse Resp B/P (MAP) Pulse Ox O2 Delivery O2 Flow Rate FiO2 06/11/24 14:11 175/71 06/11/24 12:13 70 14 100 06/11/24 12:04 Nasal Cannula* 4 36 06/11/24 09:00 97.9 97.9 General Appeara: Well developed, Well nourished Head Exam: Normal inspection Neck Exam: Normal inspection Eye Exam: bilateral eye PERRL Nasal Exam: Normal inspection Mouth: Normal Inspection Pulmonary/Respiratory: Lungs clear Cardiovascular/Chest: Normal inspection, Regular rate Peripheral Pulses: 2+ carotid (R), 2+ carotid (L), 2+ femoral (R), 2+ femoral (L), 2+ dorsalis pedis (R), 2+ dorsalis pedis (L), 2+ Radial (R), 2+ Radial (L) Abdominal Exam: Normal bowel sounds, Soft, No hepatospenomegaly Neuro/Mental St: Alert, Oriented Appearance: Appropriate appearance Eye contact/ Speech: Cooperative Labs/Xrays Labs Test 06/11/24 14:20 06/11/24 05:36 06/10/24 19:58 06/10/24 16:28 Range/Units Urine Color Colorless Yellow Urine Clarity Clear Clear Urine pH 5.0 5.0-9.0 Urine Specific Cades 1.006 1.001-1.035 Urine Protein Negative Negative Urine Ketones Negative Negative Urine Blood Negative Negative /uL Urine Nitrite Negative Negative Urine Bilirubin Negative Negative Urine Urobilinogen Normal Negative mg/dL Urine Leukocyte Esterase Negative Negative /uL Urine RBC <1 0 - 4 /hpf Urine WBC None seen 0 - 5 /hpf Urine Squamous Epithelial Cells Few <5 /hpf Urine Bacteria None seen None Seen /hpf Urine Hyaline Casts Few 0 - 2 /lpf Urine Glucose Normal Normal mg/dL White Blood Count 8.7 4.4-10.8 10^3/uL Red Blood Count 3.36 L 4.0-5.20 10^6/uL Hemoglobin 10.3 L 12.2-16.2 g/dL Hematocrit 31.6 L 36.0-46.0 % Mean Corpuscular Volume 94.2 80.0-100.0 fL Mean Corpuscular Hemoglobin 30.7 28.0-32.0 pg Mean Corpuscular Hemoglobin Concent 32.6 32.0-36.0 g/dL Red Cell Distribution Width 15.9 H 11.8-14.3 % Platelet Count 172 140-450 10^3/uL Mean Platelet Volume 7.7 6.9-10.8 fL Neutrophils (%) (Auto) 80.4 H 37.0-80.0 % Lymphocytes (%) (Auto) 5.3 L 10.0-50.0 % Monocytes (%) (Auto) 7.6 0.0-12.0 % Eosinophils (%) (Auto) 6.1 0.0-7.0 % Basophils (%) (Auto) 0.6 0.0-2.0 % Neutrophils # (Auto) 7.0 1.6-8.6 10 ^3/uL Lymphocytes # (Auto) 0.5 0.4-5.4 10 ^3/uL Monocytes # (Auto) 0.7 0-1.3 10 ^3/uL Eosinophils # (Auto) 0.5 0-0.8 10 ^3/uL Basophils # (Auto) 0.1 0-0.2 10 ^3/uL Nucleated Red Blood Cells 0.1 % Sodium Level 143 136-145 mmol/L Potassium Level 3.8 3.5-5.1 mmol/L Chloride Level 109 H 98-107 mmol/L Carbon Dioxide Level 27 20-31 mmol/L Anion Gap 7 5-15 Blood Urea Nitrogen 11 9-23 mg/dL Creatinine 0.62 0.550-1.02 mg/dL Glomerular Filtration Rate Calc 93 >90 mL/min BUN/Creatinine Ratio 17.7 10.0-20.0 Serum Glucose 84 74-106 mg/dL Calcium Level 9.4 8.7-10.4 mg/dL Total Bilirubin 0.3 0.2-1.0 mg/dL Aspartate Amino Transferase (AST) 15 13-40 U/L Alanine Aminotransferase (ALT) 11 7-40 U/L Alkaline Phosphatase 82 46-116 U/L Total Protein 5.7 5.7-8.2 g/dL Albumin 3.8 3.2-4.8 g/dL Troponin I High Sensitivity 6 </=34 ng/L B-Type Natriuretic Peptide 256.38 0-100 pg/mL Assessment/Plan Plan Patient is a 74-year-old female who presented to the hospital with chest discomfort and shortness of breath. She mentioned that she had 3 different vaccinations in the same day (flu/pneumonia/shingles) which was followed with shortness of breath/chest discomfort. Cardiology is involved for cardiac aspects of care. She is known to our practice from outside and before. Serial troponin has been negative. She denies chest discomfort and shortness of breath at the time of evaluation. Cardiac wilcox, she is known to have coronary artery disease, status post CABG and PCI (few years back). She does have pulmonary hypertension and pacemaker. She is known to have closed bypass grafts. She occasionally gets short of breath with decompensated diastolic heart failure. Last month, she was in the office and the pacemaker was interrogated. Lying comfortably flat in bed. No JVD. pink mucosa. Lungs reveal scattered rhonchi. Cardiac: Regular, no thrills/murmur. Abdomen is soft. No hepatomegaly. Bowel sounds positive. Lower extremities do not reveal edema. There is some mild swelling of the left upper arm and tenderness. Dorsalis pedis is 2+ bilateral Past medical history includes diabetes mellitus, hyperlipidemia, hypertension, diastolic heart failure, peripheral artery disease, GERD, anxiety, anemia, asthma, coronary artery disease, status post CABG and PCI, status post pacemaker implantation ([employer]tr[employer]), status post old CVA, COPD on home oxygen, fibromyalgia, pulmonary hypertension, history of poor functional status, history of GI bleeding, pulmonary fibrosis, hiatal hernia, ex-smoker, status post gold cholecystectomy/hysterectomy. Is known to have closed grafts for CABG. Has had high risk PCI/left main in [facility] (few years back). Does have history of abnormal nuclear stress test and the plan has been to manage her medically. She is kept on Aspirin and Brilinta. She is ex-smoker. Echocardiogram of January 09, 2023 revealed LVEF of 55 to 60%, mild concentric left ventricular hypertrophy, no wall motion abnormality, mild biatrial enlargement, pacing wire in right-sided chambers, mild to moderate aortic insufficiency, mild mitral regurgitation, mild to moderate tricuspid regurgitation and right ventricular systolic pressure of 35 mmHg Echocardiogram of March 07, 2023 had revealed ejection fraction of 55 to 60%, mild concentric left ventricular hypertrophy, mild AI/MR/PI, mild biatrial enlargement, pacemaker wire in the right-sided chambers and right ventricular systolic pressure of 34 mmHg Echocardiogram of September 06, 2023 revealed ejection fraction of 55% and pacemaker in right-sided chambers Echocardiogram of December 26, 2023 had reported ejection fraction of 55-60%, no wall motion abnormality, [id number] aortic insufficiency, mild MR, moderate TR and right ventricular systolic pressure 42 mm Hg Creatinine: 0.64 - 0.62 Potassium: 3.7 - 3.8 Troponin (high sensitive): 6 - 6 - 6 BNP: 256.38 Chest x-ray revealed: Findings/impression: No active cardiopulmonary disease or significant interval change. Left-sided cardiac device with intact leads. Coarse interstitial opacities predominantly in the bilateral mid to lower lung zones. Low lung volumes with bronchovascular crowding. Postsurgical changes of the mediastinum. No pneumothorax. EKG reviewed normal sinus rhythm, nonspecific ST-T changes Telemetry reveals sinus rhythm and occasions of paced rhythm Patient is a 74-year-old female who presented with shortness of breath and chest pain which started after triple vaccination on the same day. Patient does have pacemaker which has been interrogated recently. Serial high sensitive troponin has been negative. EKG has been nonrevealing Cardiac etiology for presentation is less likely. Chest discomfort, atypical Pulmonary fibrosis Pulmonary hypertension Chronic diastolic heart failure Status post pacemaker Cardiac suggestions for management: Manage on telemetry Follow-up electrolytes and kidney function and correct abnormalities, keep potassium above 4 magnesium above 2 Continuation of Statin/Ranexa/Imdur suggested ASA: 81 mg daily Cardiac-wilcox the patient is considered stable Further evaluation and management depends on the above and clinical course A total of 75 minutes was spent reviewing the patient record, examining the milvia ent, making a diagnostic and therapeutic plan, discussing this plan with medical personnel, following up on diagnostic studies and following the patient for clinical stability excluding any and all procedures. At least 50% of this time was spent in direct, [id number] contact. Thank you for allowing me to participate in this patient's care. Further recommendations will depend on patient's clinical course. Please do not hesitate to contact me if you have any questions or concerns. This medical document was created using electronic medical record system with [employer] dictation system. Although this document has been carefully reviewed, there may still be some phonetic and typographical errors. These areas are purely typographical due to the imperfection of the software programs, and do not reflect any compromise in the patient's medical care. Plan discussed with: Patient, Other (nurse) AJAY SMALLWOOD MD 5, 2024 16:25
[2024-06-11] MEDS: TICAGRELOR 90 MG TAB PO SCH (22:30)
[2024-06-11] MEDS: RANOLAZINE ER 500 MG TAB PO SCH (22:30)
[2024-06-12] VITALS (13 sets, daily range): BP systolic 91–137; BP diastolic 47–60; PULSE 65–77; RESP 14–18; TEMP 97.3–98.1; O2SAT 93–100
--- NOTE | 2024-06-12 06:26 | DVHPN2 ---
Progress Note - Dictate Date Seen: Jun 12, 2024 Medical Necessity Reason Pt with a Central, PICC or Fol: No vital signs Vital Sign Date Time Temp Pulse Resp B/P (MAP) Pulse Ox O2 Delivery O2 Flow Rate FiO2 06/12/24 05:50 70 16 99 06/12/24 05:45 Nasal Cannula 4.0 06/12/24 05:45 36 06/12/24 05:00 97.8 93/48 (63) 97.8 Total Intake and Output 06/11/24 06/11/24 06/12/24 15:00 23:00 07:00 Intake Total 850 ml 200 ml Balance 850 ml 200 ml medications Current Medications Medications Dose Ordered Sig/Romaine Route Start Time Stop Time Status Last Admin Dose Admin Carvedilol 12.5 mg Q12HR PO 06/10/24 22:00 06/11/24 22:30 12.5 MG Aspirin 81 mg DAILY PO 06/11/24 10:00 06/11/24 10:51 81 MG Atorvastatin Calcium 20 mg HS PO 06/10/24 22:00 06/11/24 22:30 20 MG Pantoprazole Sodium 40 mg DAILY IV 06/11/24 10:00 06/11/24 10:50 40 MG Furosemide 40 mg DAILY IV 06/11/24 10:00 06/11/24 10:49 40 MG Sodium Chloride 10 ml Q8HR IV 06/10/24 22:00 06/12/24 05:03 10 ML Acetaminophen/ Hydrocodone Bitart 1 tab Q4HP PRN PO 06/10/24 18:30 06/11/24 23:47 1 TAB Ondansetron HCl 4 mg Q4HP PRN IV 06/10/24 18:30 Docusate Sodium 100 mg BIDPRN PRN PO 06/10/24 18:30 Acetaminophen 650 mg Q6HP PRN PO 06/10/24 18:30 Nitroglycerin 0.4 mg Q5MINP PRN SL 06/10/24 20:15 Morphine Sulfate 2 mg Q30M PRN IV 06/10/24 20:15 Lisinopril 10 mg DAILY PO 06/12/24 10:00 Isosorbide Mononitrate 60 mg DAILY PO 06/12/24 10:00 Ranolazine 500 mg BID PO 06/11/24 22:00 06/11/24 22:30 500 MG Levalbuterol HCl 0.625 mg Q6HR NEB 06/11/24 12:00 06/12/24 05:46 0.625 MG Ipratropium [place] 0.5 mg Q6HWA NEB 06/11/24 12:00 06/12/24 05:45 0.5 MG Ticagrelor 90 mg BID PO 06/11/24 22:00 06/11/24 22:30 90 MG laboratory and microbiology Laboratory Tests 06/11/24 05:36 Test 06/11/24 05:36 Range/Units Serum Glucose 84 74-106 mg/dL Assessment/Plan Patient is a 74-year-old female who presented to the hospital with chest discomfort and shortness of breath. She mentioned that she had 3 different vaccinations in the same day (flu/pneumonia/shingles) which was followed with shortness of breath/chest discomfort. Cardiology is involved for cardiac aspects of care. She is known to our practice from outside and before. Serial troponin has been negative. She denies chest discomfort and shortness of breath at the time of evaluation. Cardiac wilcox, she is known to have coronary artery disease, status post CABG and PCI (few years back). She does have pulmonary hypertension and pacemaker. She is known to have closed bypass grafts. She occasionally gets short of breath with decompensated diastolic heart failure. Last month, she was in the office and the pacemaker was interrogated. Lying comfortably flat in bed. No JVD. pink mucosa. Lungs reveal scattered rhonchi. Cardiac: Regular, no thrills/murmur. Abdomen is soft. No hepatomegaly. Bowel sounds positive. Lower extremities do not reveal edema. There is some mild swelling of the left upper arm and tenderness. Dorsalis pedis is 2+ bilateral Past medical history includes diabetes mellitus, hyperlipidemia, hypertension, diastolic heart failure, peripheral artery disease, GERD, anxiety, anemia, asthma, coronary artery disease, status post CABG and PCI, status post pacemaker implantation ([employer]tr[employer]), status post old CVA, COPD on home oxygen, fibromyalgia, pulmonary hypertension, history of poor functional status, history of GI bleeding, pulmonary fibrosis, hiatal hernia, ex-smoker, status post gold cholecystectomy/hysterectomy. Is known to have closed grafts for CABG. Has had high risk PCI/left main in [facility] (few years back). Does have history of abnormal nuclear stress test and the plan has been to manage her medically. She is kept on Aspirin and Brilinta. She is ex-smoker. Echocardiogram of January 09, 2023 revealed LVEF of 55 to 60%, mild concentric left ventricular hypertrophy, no wall motion abnormality, mild biatrial enlargement, pacing wire in right-sided chambers, mild to moderate aortic insufficiency, mild mitral regurgitation, mild to moderate tricuspid regurgitation and right ventricular systolic pressure of 35 mmHg Echocardiogram of March 07, 2023 had revealed ejection fraction of 55 to 60%, mild concentric left ventricular hypertrophy, mild AI/MR/PI, mild biatrial enlargement, pacemaker wire in the right-sided chambers and right ventricular systolic pressure of 34 mmHg Echocardiogram of September 06, 2023 revealed ejection fraction of 55% and pacemaker in right-sided chambers Echocardiogram of December 26, 2023 had reported ejection fraction of 55-60%, no wall motion abnormality, [id number] aortic insufficiency, mild MR, moderate TR and right ventricular systolic pressure 42 mm Hg Creatinine: 0.64 - 0.62 Potassium: 3.7 - 3.8 Troponin (high sensitive): 6 - 6 - 6 BNP: 256.38 Chest x-ray revealed: Findings/impression: No active cardiopulmonary disease or significant interval change. Left-sided cardiac device with intact leads. Coarse interstitial opacities predominantly in the bilateral mid to lower lung zones. Low lung volumes with bronchovascular crowding. Postsurgical changes of the mediastinum. No pneumothorax. EKG reviewed normal sinus rhythm, nonspecific ST-T changes Telemetry reveals sinus rhythm and occasions of paced rhythm Patient is a 74-year-old female who presented with shortness of breath and chest pain which started after triple vaccination on the same day. Patient does have pacemaker which has been interrogated recently. Serial high sensitive troponin has been negative. EKG has been nonrevealing Cardiac etiology for presentation is less likely. Complained of hemoptysis (primary team to consider considering a presentation of URI or requesting for pulmonary consult) Chest discomfort, atypical Pulmonary fibrosis Pulmonary hypertension Chronic diastolic heart failure Status post pacemaker Cardiac suggestions for management: Manage on telemetry Follow-up electrolytes and kidney function and correct abnormalities, keep potassium above 4 magnesium above 2 Continuation of Statin/Ranexa/Imdur suggested ASA: 81 mg daily Complained of hemoptysis (primary team to consider considering a presentation of URI or requesting for pulmonary consult) Cardiac-wilcox the patient is considered stable Further evaluation and management depends on the above and clinical course A total of 55 minutes was spent reviewing the patient record, examining the patient, making a diagnostic and therapeutic plan, discussing this plan with medical personnel, following up on diagnostic studies and following the patient for clinical stability excluding any and all procedures. At least 50% of this time was spent in direct, [id number] contact. Thank you for allowing me to participate in this patient's care. Further recommendations will depend on patient's clinical course. Please do not hesitate to contact me if you have any questions or concerns. This medical document was created using electronic medical record system with [employer] computerized dictation system. Although this document has been carefully reviewed, there may still be some phonetic and typographical errors. These areas are purely typographical due to the imperfection of the software programs, and do not reflect any compromise in the patient's medical care. Plan discussed with: Patient, Other (nurse) AJAY SMALLWOOD MD Jun 12, 2024 06:26
[2024-06-12 06:48] LABS: Anion Gap 7 (5-15); Carbon Dioxide 31 mmol/L (20-31); Chloride 103 mmol/L (98-107); Potassium 3.7 mmol/L (3.5-5.1); Sodium 141 mmol/L (136-145)
[2024-06-12 06:49] LABS: Calcium 9.8 mg/dL (8.7-10.4)
[2024-06-12 06:54] LABS: BUN/Creatinine Ratio 18.2 (10.0-20.0); Blood Urea Nitrogen 14 mg/dL (9-23); Glucose 84 mg/dL (74-106)
[2024-06-12] MEDS: LISINOPRIL 5 MG TAB PO SCH (10:28)
[2024-06-12] MEDS: ISOSORBIDE MONONITRATE ER 60 MG TAB PO SCH (10:28)
--- NOTE | 2024-06-12 10:51 | DVHPN2 ---
Progress Note Date Seen: Jun 12, 2024 Medical Necessity Reason Pt with a Central, PICC or Fol: No Subjective Patient reports: No new complaints Review of Systems: HEENT:Normal, CVS:Normal, RESPIRATORY:Normal, GI:Normal, :Normal, MSK:Normal, NEURO:Normal Objective vital signs Vital Sign Date Time Temp Pulse Resp B/P (MAP) Pulse Ox O2 Delivery O2 Flow Rate FiO2 06/12/24 10:48 77 148/67 06/12/24 08:41 98.0 16 99 98.0 06/12/24 08:05 Oxymizer 4 N/A Total Intake and Output 06/11/24 06/11/24 06/12/24 15:00 23:00 07:00 Intake Total 850 ml 200 ml Balance 850 ml 200 ml medications Current Medications Medications Dose Ordered Sig/Romaine Route Start Time Stop Time Status Last Admin Dose Admin Carvedilol 12.5 mg Q12HR PO 06/10/24 22:00 06/12/24 10:48 12.5 MG Aspirin 81 mg DAILY PO 06/11/24 10:00 06/12/24 10:29 81 MG Atorvastatin Calcium 20 mg HS PO 06/10/24 22:00 06/11/24 22:30 20 MG Pantoprazole Sodium 40 mg DAILY IV 06/11/24 10:00 06/12/24 10:27 40 MG Furosemide 40 mg DAILY IV 06/11/24 10:00 06/12/24 10:26 40 MG Sodium Chloride 10 ml Q8HR IV 06/10/24 22:00 06/12/24 05:03 10 ML Acetaminophen/ Hydrocodone Bitart 1 tab Q4HP PRN PO 06/10/24 18:30 06/12/24 10:48 1 TAB Ondansetron HCl 4 mg Q4HP PRN IV 06/10/24 18:30 Docusate Sodium 100 mg BIDPRN PRN PO 06/10/24 18:30 Acetaminophen 650 mg Q6HP PRN PO 06/10/24 18:30 Nitroglycerin 0.4 mg Q5MINP PRN SL 06/10/24 20:15 Morphine Sulfate 2 mg Q30M PRN IV 06/10/24 20:15 Lisinopril 10 mg DAILY PO 06/12/24 10:00 06/12/24 10:28 10 MG Isosorbide Mononitrate 60 mg DAILY PO 06/12/24 10:00 06/12/24 10:28 60 MG Ranolazine 500 mg BID PO 06/11/24 22:00 06/12/24 10:27 500 MG Levalbuterol HCl 0.625 mg Q6HR NEB 06/11/24 12:00 06/12/24 05:46 0.625 MG Ipratropium [place] 0.5 mg Q6HWA NEB 06/11/24 12:00 06/12/24 05:45 0.5 MG Ticagrelor 90 mg BID PO 06/11/24 22:00 06/12/24 10:27 90 MG Examination: GENERAL:Normal, HEENT:Normal, NECK:Normal, LUNGS:Normal, LUNGS:Abnormal (on oxygen), CVS:Normal, ABDOMEN:Normal, MSK:Normal, SKIN:Normal, NEURO:Normal, :Normal laboratory and microbiology Laboratory Tests 06/12/24 04:48 06/11/24 05:36 Test 06/12/24 04:48 Range/Units Serum Glucose 84 74-106 mg/dL Problem List/Assessment/Plan Problem List/Assessment/Plan #1 acute on chronic diastolic heart failure: lasix #2 cad s/p cabg #3 s/p pacer #4 copd with exacerbation: cont meds #5 chronic resp failure #6 hyperlipidemia #7 htn #8 fibromyalgia advance care planning- full code- time spent 19 mins Plan discussed with: Patient My Orders My Orders Orders - CALE FAGAN MD Procedure Category Date Status Time Lisinopril Tablet PHA 06/12/24 In Process (Zestril Tablet) 10:00 Isosorbide PHA 06/12/24 In Process Mononitrate Tablet 10:00 Ranolazine (Ranexa Er) PHA 06/11/24 In Process 22:00 * Cardiology Consult CONS 06/11/24 Transmitted 11:00 Levalbuterol Hcl PHA 06/11/24 In Process (Xopenex Medneb) 12:00 Ipratropium Medneb PHA 06/11/24 In Process (Atrovent Medneb) 12:00 Ticagrelor (Brilinta) PHA 06/11/24 In Process 22:00 Date of Service: Jun 12, 2024 Billing Provider: CALE FAGAN MD Common Visit Codes: [id number] INP/OBS CARE(HIGH) CALE FAGAN MD Jun 12, 2024 10:51
[2024-06-12] MEDS: ONDANSETRON HCL 4 MG/2 ML VIAL IV PRN (18:25)
[2024-06-13] VITALS (16 sets, daily range): BP systolic 103–133; BP diastolic 52–70; PULSE 52–83; RESP 16–19; TEMP 97.3–98.1; O2SAT 90–100
[2024-06-13] MEDS: PANTOPRAZOLE 40 MG TAB PO SCH (05:18)
--- NOTE | 2024-06-13 07:28 | DVHPN2 ---
Progress Note - Dictate Date Seen: Jun 13, 2024 Medical Necessity Reason Pt with a Central, PICC or Fol: No vital signs Vital Sign Date Time Temp Pulse Resp B/P (MAP) Pulse Ox O2 Delivery O2 Flow Rate FiO2 06/13/24 05:00 98.1 52 17 103/61 (75) 100 98.1 06/12/24 20:23 Oxymizer 4 N/A Total Intake and Output 06/12/24 06/12/24 06/13/24 15:00 23:00 07:00 Intake Total 825 ml 470 ml Output Total 1450 ml 350 ml Balance -625 ml 120 ml medications Current Medications Medications Dose Ordered Sig/Romaine Route Start Time Stop Time Status Last Admin Dose Admin Carvedilol 12.5 mg Q12HR PO 06/10/24 22:00 06/12/24 10:48 12.5 MG Aspirin 81 mg DAILY PO 06/11/24 10:00 06/12/24 10:29 81 MG Atorvastatin Calcium 20 mg HS PO 06/10/24 22:00 06/12/24 21:31 20 MG Sodium Chloride 10 ml Q8HR IV 06/10/24 22:00 06/13/24 05:03 10 ML Acetaminophen/ Hydrocodone Bitart 1 tab Q4HP PRN PO 06/10/24 18:30 06/12/24 14:58 1 TAB Ondansetron HCl 4 mg Q4HP PRN IV 06/10/24 18:30 06/12/24 18:25 4 MG Docusate Sodium 100 mg BIDPRN PRN PO 06/10/24 18:30 Acetaminophen 650 mg Q6HP PRN PO 06/10/24 18:30 Nitroglycerin 0.4 mg Q5MINP PRN SL 06/10/24 20:15 Morphine Sulfate 2 mg Q30M PRN IV 06/10/24 20:15 Lisinopril 10 mg DAILY PO 06/12/24 10:00 06/12/24 10:28 10 MG Isosorbide Mononitrate 60 mg DAILY PO 06/12/24 10:00 06/12/24 10:28 60 MG Ranolazine 500 mg BID PO 06/11/24 22:00 06/12/24 21:31 500 MG Levalbuterol HCl 0.625 mg Q6HR NEB 06/11/24 12:00 06/13/24 00:01 0.625 MG Ipratropium [place] 0.5 mg Q6HWA NEB 06/11/24 12:00 06/12/24 19:01 0.5 MG Ticagrelor 90 mg BID PO 06/11/24 22:00 06/12/24 21:30 90 MG Pantoprazole Sodium 40 mg DAILY@0600 PO 06/13/24 06:00 06/13/24 05:18 40 MG Furosemide 40 mg DAILY PO 06/13/24 10:00 laboratory and microbiology Laboratory Tests 06/12/24 04:48 06/11/24 05:36 Test 06/12/24 04:48 Range/Units Serum Glucose 84 74-106 mg/dL Assessment/Plan Patient is a 74-year-old female who presented to the hospital with chest discomfort and shortness of breath. She mentioned that she had 3 different vaccinations in the same day (flu/pneumonia/shingles) which was followed with shortness of breath/chest discomfort. Cardiology is involved for cardiac aspects of care. She is known to our practice from outside and before. Serial troponin has been negative. She denies chest discomfort and shortness of breath at the time of evaluation. Cardiac wilcox, she is known to have coronary artery disease, status post CABG and PCI (few years back). She does have pulmonary hypertension and pacemaker. She is known to have closed bypass grafts. She occasionally gets short of breath with decompensated diastolic heart failure. Last month, she was in the office and the pacemaker was interrogated. Lying comfortably flat in bed. No JVD. pink mucosa. Lungs reveal scattered rhonchi. Cardiac: Regular, no thrills/murmur. Abdomen is soft. No hepatomegaly. Bowel sounds positive. Lower extremities do not reveal edema. There is some mild swelling of the left upper arm and tenderness. Dorsalis pedis is 2+ bilateral Past medical history includes diabetes mellitus, hyperlipidemia, hypertension, diastolic heart failure, peripheral artery disease, GERD, anxiety, anemia, asthma, coronary artery disease, status post CABG and PCI, status post pacemaker implantation ([employer]), status post old CVA, COPD on home oxygen, fibromyalgia, pulmonary hypertension, history of poor functional status, history of GI bleeding, pulmonary fibrosis, hiatal hernia, ex-smoker, status post gold cholecystectomy/hysterectomy. Is known to have closed grafts for CABG. Has had high risk PCI/left main in [facility] (few years back). Does have history of abnormal nuclear stress test and the plan has been to manage her medically. She is kept on Aspirin and Brilinta. She is ex-smoker. Echocardiogram of January 09, 2023 revealed LVEF of 55 to 60%, mild concentric left ventricular hypertrophy, no wall motion abnormality, mild biatrial enlargement, pacing wire in right-sided chambers, mild to moderate aortic insufficiency, mild mitral regurgitation, mild to moderate tricuspid regurgitation and right ventricular systolic pressure of 35 mmHg Echocardiogram of March 07, 2023 had revealed ejection fraction of 55 to 60%, mild concentric left ventricular hypertrophy, mild AI/MR/PI, mild biatrial enlargement, pacemaker wire in the right-sided chambers and right ventricular systolic pressure of 34 mmHg Echocardiogram of September 06, 2023 revealed ejection fraction of 55% and pacemaker in right-sided chambers Echocardiogram of December 26, 2023 had reported ejection fraction of 55-60%, no wall motion abnormality, [id number] aortic insufficiency, mild MR, moderate TR and right ventricular systolic pressure 42 mm Hg Creatinine: 0.64 - 0.62 - 0.77 Potassium: 3.7 - 3.8 - 3.7 Troponin (high sensitive): 6 - 6 - 6 BNP: 256.38 Chest x-ray revealed: Findings/impression: No active cardiopulmonary disease or significant interval change. Left-sided cardiac device with intact leads. Coarse interstitial opacities predominantly in the bilateral mid to lower lung zones. Low lung volumes with bronchovascular crowding. Postsurgical changes of the mediastinum. No pneumothorax. EKG reviewed normal sinus rhythm, nonspecific ST-T changes Telemetry reveals sinus rhythm and occasions of paced rhythm Patient is a 74-year-old female who presented with shortness of breath and chest pain which started after triple vaccination on the same day. Patient does have pacemaker which has been interrogated recently. Serial high sensitive troponin has been negative. EKG has been nonrevealing Cardiac etiology for presentation is less likely. Complained of hemoptysis (primary team to consider considering a presentation of URI or requesting for pulmonary consult) Chest discomfort, atypical Pulmonary fibrosis Pulmonary hypertension Chronic diastolic heart failure Status post pacemaker Cardiac suggestions for management: Manage on telemetry Follow-up electrolytes and kidney function and correct abnormalities, keep potassium above 4 magnesium above 2 Continuation of Statin/Ranexa/Imdur suggested ASA: 81 mg daily Complained of hemoptysis yesterday (primary team to consider considering a presentation of URI or requesting for pulmonary consult) Cardiac-wilcox the patient is considered stable Further evaluation and management depends on the above and clinical course A total of 55 minutes was spent reviewing the patient record, examining the patient, making a diagnostic and therapeutic plan, discussing this plan with medical personnel, following up on diagnostic studies and following the patient for clinical stability excluding any and all procedures. At least 50% of this time was spent in direct, [id number] contact. Thank you for allowing me to participate in this patient's care. Further recommendations will depend on patient's clinical course. Please do not hesitate to contact me if you have any questions or concerns. This medical document was created using electronic medical record system with [facility] computerized dictation system. Although this document has been carefully reviewed, there may still be some phonetic and typographical errors. These areas are purely typographical due to the imperfection of the software programs, and do not reflect any compromise in the patient's medical care. Plan discussed with: Patient, Other (nurse) AJAY SMALLWOOD MD Jun 13, 2024 07:28
[2024-06-13] MEDS: FUROSEMIDE 40 MG TAB PO SCH (10:10)
--- NOTE | 2024-06-13 13:05 | DVHPN2 ---
Reviewed: Care Plan, H&P, Labs, Medications, Previous Orders, Radiology Changes from previous H/P or p: No Changes Eyes: No Pain, No Vision change, No Conjunctivae inflammation, No Eyelid inflammation, No Other, No Redness ENT: No Ear pain, No Ear discharge, No Nose pain, No Nose discharge, No Nose congestion, No Mouth pain, No Mouth swelling, No Throat pain, No Throat swelling, No Other Cardiovascular: Chest Pain; No Palpitations, No Orthopnea, No Paroxysmal Noc. Dyspnea, No Edema, No Lt Headedness, No Other Respiratory: No Cough, No Dry; Shortness of breath; No SOB with excertion, No Wheezing, No Hemoptysis, No Pleuritic Pain, No Sputum, No Other Gastrointestinal: No Nausea, No Vomiting, No Abdominal Pain, No Diarrhea, No Constipation, No Melena, No Hematochezia, No Other Genitourinary: No Dysuria, No Frequency, No Incontinence, No Hematuria, No Retention, No Other Musculoskeletal: No other, No neck pain, No shoulder pain, No arm pain, No back pain, No hand pain, No leg pain, No foot pain Skin: No Rash, No Lesions, No Jaundice, No Bruising, No Other Objective Vitals Vital Signs Date Time Temp Pulse Resp B/P (MAP) Pulse Ox O2 Delivery O2 Flow Rate FiO2 06/13/24 11:47 98 Nasal Cannula* 4 36 06/13/24 11:47 71 16 06/13/24 10:13 118/52 06/13/24 05:00 98.1 98.1 Intake/Output Intake and Output 06/13/24 07:00 Intake Total 1295 ml Output Total 1800 ml Balance -505 ml Intake Oral 1295 ml Output Urine Total 1800 ml Medications Current Medications Medications Dose Ordered Sig/Romaine Route Start Time Stop Time Status Last Admin Dose Admin Carvedilol 12.5 mg Q12HR PO 06/10/24 22:00 06/13/24 10:13 12.5 MG Aspirin 81 mg DAILY PO 06/11/24 10:00 06/13/24 10:12 81 MG Atorvastatin Calcium 20 mg HS PO 06/10/24 22:00 06/12/24 21:31 20 MG Sodium Chloride 10 ml Q8HR IV 06/10/24 22:00 06/13/24 05:03 10 ML Acetaminophen/ Hydrocodone Bitart 1 tab Q4HP PRN PO 06/10/24 18:30 06/13/24 10:13 1 TAB Ondansetron HCl 4 mg Q4HP PRN IV 06/10/24 18:30 06/12/24 18:25 4 MG Docusate Sodium 100 mg BIDPRN PRN PO 06/10/24 18:30 Acetaminophen 650 mg Q6HP PRN PO 06/10/24 18:30 Nitroglycerin 0.4 mg Q5MINP PRN SL 06/10/24 20:15 Morphine Sulfate 2 mg Q30M PRN IV 06/10/24 20:15 Lisinopril 10 mg DAILY PO 06/12/24 10:00 06/13/24 10:11 10 MG Isosorbide Mononitrate 60 mg DAILY PO 06/12/24 10:00 06/13/24 10:12 60 MG Ranolazine 500 mg BID PO 06/11/24 22:00 06/13/24 10:12 500 MG Levalbuterol HCl 0.625 mg Q6HR NEB 06/11/24 12:00 06/13/24 11:47 0.625 MG Ipratropium [place] 0.5 mg Q6HWA NEB 06/11/24 12:00 06/13/24 11:47 0.5 MG Ticagrelor 90 mg BID PO 06/11/24 22:00 06/13/24 10:11 90 MG Pantoprazole Sodium 40 mg DAILY@0600 PO 06/13/24 06:00 06/13/24 05:18 40 MG Furosemide 40 mg DAILY PO 06/13/24 10:00 06/13/24 10:10 40 MG Laboratory Results Laboratory Tests 06/11/24 05:36 06/12/24 04:48 Urinalysis Test 06/11/24 14:20 Urine Color Colorless (Yellow) Urine Clarity Clear (Clear) Urine pH 5.0 (5.0-9.0) Urine Specific [place] 1.006 (1.001-1.035) Urine Protein Negative (Negative) Urine Ketones Negative (Negative) Urine Blood Negative /uL (Negative) Urine Nitrite Negative (Negative) Urine Bilirubin Negative (Negative) Urine Urobilinogen Normal mg/dL (Negative) Urine Leukocyte Esterase Negative /uL (Negative) Urine RBC <1 /hpf (0 - 4) Urine WBC None seen /hpf (0 - 5) Urine Squamous Epithelial Cells Few /hpf (<5) Urine Bacteria None seen /hpf (None Seen) Urine Hyaline Casts Few /lpf (0 - 2) Urine Glucose Normal mg/dL (Normal) Labs and/or images reviewed: Labs reviewed by me, Image(s) reviewed by me Assessment/Plan Assessment/Plan #1 acute on chronic diastolic heart failure: lasix #2 cad s/p cabg #3 s/p pacer #4 copd with exacerbation: cont meds Levaquin, Solu-Medrol #5 chronic resp failure #6 hyperlipidemia #7 htn #8 fibromyalgia Use of home oxygen 4 L per mt Plan discussed with: Patient Date of Service: Jun 13, 2024 Billing Provider: JULIANNA SLOAN MD Common Visit Codes: [id number] INP/OBS CARE(HIGH) JULIANNA SLOAN MD Jun 13, 2024 13:05
[2024-06-13] MEDS: cefTRIAXone 1GM/50ML D5W 50 ML IV ONE (14:34)
[2024-06-13] MEDS: methylPREDNISolone SOD SUCC 40 MG/ML VL IV SCH (14:34)
[2024-06-14] VITALS (13 sets, daily range): BP systolic 103–141; BP diastolic 49–63; PULSE 68–95; RESP 16–19; TEMP 98–98.3; O2SAT 95–99
--- NOTE | 2024-06-14 06:26 | DVHPN2 ---
Progress Note - Dictate Date Seen: Jun 14, 2024 Medical Necessity Reason Pt with a Central, PICC or Fol: No vital signs Vital Sign Date Time Temp Pulse Resp B/P (MAP) Pulse Ox O2 Delivery O2 Flow Rate FiO2 06/14/24 05:00 98.1 89 19 104/56 (72) 99 98.1 06/13/24 20:00 Oxymizer 4 N/A Total Intake and Output 06/13/24 06/13/24 06/14/24 15:00 23:00 07:00 Intake Total 200 ml 2750 ml 0 ml Output Total 1700 ml Balance 200 ml 1050 ml 0 ml medications Current Medications Medications Dose Ordered Sig/Romaine Route Start Time Stop Time Status Last Admin Dose Admin Carvedilol 12.5 mg Q12HR PO 06/10/24 22:00 06/13/24 23:16 12.5 MG Aspirin 81 mg DAILY PO 06/11/24 10:00 06/13/24 10:12 81 MG Atorvastatin Calcium 20 mg HS PO 06/10/24 22:00 06/13/24 23:16 20 MG Sodium Chloride 10 ml Q8HR IV 06/10/24 22:00 06/14/24 05:25 10 ML Acetaminophen/ Hydrocodone Bitart 1 tab Q4HP PRN PO 06/10/24 18:30 06/13/24 18:27 1 TAB Ondansetron HCl 4 mg Q4HP PRN IV 06/10/24 18:30 06/12/24 18:25 4 MG Docusate Sodium 100 mg BIDPRN PRN PO 06/10/24 18:30 Acetaminophen 650 mg Q6HP PRN PO 06/10/24 18:30 Nitroglycerin 0.4 mg Q5MINP PRN SL 06/10/24 20:15 Morphine Sulfate 2 mg Q30M PRN IV 06/10/24 20:15 Lisinopril 10 mg DAILY PO 06/12/24 10:00 06/13/24 10:11 10 MG Isosorbide Mononitrate 60 mg DAILY PO 06/12/24 10:00 06/13/24 10:12 60 MG Ranolazine 500 mg BID PO 06/11/24 22:00 06/13/24 23:16 500 MG Levalbuterol HCl 0.625 mg Q6HR NEB 06/11/24 12:00 06/14/24 00:07 0.625 MG Ipratropium [place] 0.5 mg Q6HWA NEB 06/11/24 12:00 06/13/24 18:05 0.5 MG Ticagrelor 90 mg BID PO 06/11/24 22:00 06/13/24 23:15 90 MG Pantoprazole Sodium 40 mg DAILY@0600 PO 06/13/24 06:00 06/14/24 05:24 40 MG Furosemide 40 mg DAILY PO 06/13/24 10:00 06/13/24 10:10 40 MG Ceftriaxone Sodium 50 ml @ 100 mls/hr DAILY@09 IV 06/14/24 09:00 Methylprednisolone Sodium Succinate 40 mg Q8HR IV 06/13/24 14:00 06/14/24 05:24 40 MG laboratory and microbiology Laboratory Tests 06/12/24 04:48 06/11/24 05:36 Test 06/12/24 04:48 Range/Units Serum Glucose 84 74-106 mg/dL Assessment/Plan Patient is a 74-year-old female who presented to the hospital with chest discomfort and shortness of breath. She mentioned that she had 3 different vaccinations in the same day (flu/pneumonia/shingles) which was followed with shortness of breath/chest discomfort. Cardiology is involved for cardiac aspects of care. She is known to our practice from outside and before. Serial troponin has been negative. She denies chest discomfort and shortness of breath at the time of evaluation. Cardiac wilcox, she is known to have coronary artery disease, status post CABG and PCI (few years back). She does have pulmonary hypertension and pacemaker. She is known to have closed bypass grafts. She occasionally gets short of breath with decompensated diastolic heart failure. Last month, she was in the office and the pacemaker was interrogated. Lying comfortably flat in bed. No JVD. pink mucosa. Lungs reveal scattered rhonchi. Cardiac: Regular, no thrills/murmur. Abdomen is soft. No hepatomegaly. Bowel sounds positive. Lower extremities do not reveal edema. There is some mild swelling of the left upper arm and tenderness. Dorsalis pedis is 2+ bilateral Past medical history includes diabetes mellitus, hyperlipidemia, hypertension, diastolic heart failure, peripheral artery disease, GERD, anxiety, anemia, asthma, coronary artery disease, status post CABG and PCI, status post pacemaker implantation ([employer]), status post old CVA, COPD on home oxygen, fibromyalgia, pulmonary hypertension, history of poor functional status, history of GI bleeding, pulmonary fibrosis, hiatal hernia, ex-smoker, status post gold cholecystectomy/hysterectomy. Is known to have closed grafts for CABG. Has had high risk PCI/left main in [facility] (few years back). Does have history of abnormal nuclear stress test and the plan has been to manage her medically. She is kept on Aspirin and Brilinta. She is ex-smoker. Echocardiogram of January 09, 2023 revealed LVEF of 55 to 60%, mild concentric left ventricular hypertrophy, no wall motion abnormality, mild biatrial enlargement, pacing wire in right-sided chambers, mild to moderate aortic insufficiency, mild mitral regurgitation, mild to moderate tricuspid regurgitation and right ventricular systolic pressure of 35 mmHg Echocardiogram of March 07, 2023 had revealed ejection fraction of 55 to 60%, mild concentric left ventricular hypertrophy, mild AI/MR/PI, mild biatrial enlargement, pacemaker wire in the right-sided chambers and right ventricular systolic pressure of 34 mmHg Echocardiogram of September 06, 2023 revealed ejection fraction of 55% and pacemaker in right-sided chambers Echocardiogram of December 26, 2023 had reported ejection fraction of 55-60%, no wall motion abnormality, [id number] aortic insufficiency, mild MR, moderate TR and right ventricular systolic pressure 42 mm Hg Creatinine: 0.64 - 0.62 - 0.77 Potassium: 3.7 - 3.8 - 3.7 Troponin (high sensitive): 6 - 6 - 6 BNP: 256.38 Chest x-ray revealed: Findings/impression: No active cardiopulmonary disease or significant interval change. Left-sided cardiac device with intact leads. Coarse interstitial opacities predominantly in the bilateral mid to lower lung zones. Low lung volumes with bronchovascular crowding. Postsurgical changes of the mediastinum. No pneumothorax. EKG reviewed normal sinus rhythm, nonspecific ST-T changes Telemetry reveals sinus rhythm and occasions of paced rhythm Patient is a 74-year-old female who presented with shortness of breath and chest pain which started after triple vaccination on the same day. Patient does have pacemaker which has been interrogated recently. Serial high sensitive troponin has been negative. EKG has been nonrevealing Cardiac etiology for presentation is less likely. Complained of hemoptysis (primary team to consider considering a presentation of URI or requesting for pulmonary consult) Chest discomfort, atypical Pulmonary fibrosis Pulmonary hypertension Chronic diastolic heart failure Status post pacemaker Cardiac suggestions for management: Manage on telemetry Follow-up electrolytes and kidney function and correct abnormalities, keep potassium above 4 magnesium above 2 Continuation of Statin/Ranexa/Imdur suggested ASA: 81 mg daily Complained of hemoptysis yesterday (primary team to consider considering a presentation of URI or requesting for pulmonary consult) Cardiac-wilcox the patient is considered stable Further evaluation and management depends on the above and clinical course A total of 55 minutes was spent reviewing the patient record, examining the patient, making a diagnostic and therapeutic plan, discussing this plan with medical personnel, following up on diagnostic studies and following the patient for clinical stability excluding any and all procedures. At least 50% of this time was spent in direct, [id number] contact. Thank you for allowing me to participate in this patient's care. Further recommendations will depend on patient's clinical course. Please do not hesitate to contact me if you have any questions or concerns. This medical document was created using electronic medical record system with [employer] computerized dictation system. Although this document has been carefully reviewed, there may still be some phonetic and typographical errors. These areas are purely typographical due to the imperfection of the software programs, and do not reflect any compromise in the patient's medical care. Plan discussed with: Patient, Other (nurse) AJAY SMALLWOOD MD Jun 14, 2024 06:26
[2024-06-14] MEDS ORDERED: METH4PAK PO (09:07)
[2024-06-14] MEDS ORDERED: LEVO500T91 PO (09:07)
--- NOTE | 2024-06-14 09:14 | DVHDS2 ---
Discharge Summary Date of Admission Jun 10, 2024 at 20:01 Date of Discharge: Jun 14, 2024 Admitting Diagnosis Shortness of breaths Wounds: None Labs/Diagnostic Data: Laboratory Results Test 06/12/24 04:48 06/11/24 14:20 06/11/24 05:36 06/10/24 19:58 Sodium Level 141 mmol/L (136-145) Potassium Level 3.7 mmol/L (3.5-5.1) Chloride Level 103 mmol/L (98-107) Carbon Dioxide Level 31 mmol/L (20-31) Anion Gap 7 (5-15) Blood Urea Nitrogen 14 mg/dL (9-23) Creatinine 0.77 mg/dL (0.550-1.02) Glomerular Filtration Rate Calc 80 mL/min (>90) BUN/Creatinine Ratio 18.2 (10.0-20.0) Serum Glucose 84 mg/dL (74-106) Calcium Level 9.8 mg/dL (8.7-10.4) Magnesium Level 2.0 mg/dL (1.6-2.6) Urine Color Colorless (Yellow) Urine Clarity Clear (Clear) Urine pH 5.0 (5.0-9.0) Urine Specific Jerome 1.006 (1.001-1.035) Urine Protein Negative (Negative) Urine Ketones Negative (Negative) Urine Blood Negative /uL (Negative) Urine Nitrite Negative (Negative) Urine Bilirubin Negative (Negative) Urine Urobilinogen Normal mg/dL (Negative) Urine Leukocyte Esterase Negative /uL (Negative) Urine RBC <1 /hpf (0 - 4) Urine WBC None seen /hpf (0 - 5) Urine Squamous Epithelial Cells Few /hpf (<5) Urine Bacteria None seen /hpf (None Seen) Urine Hyaline Casts Few /lpf (0 - 2) Urine Glucose Normal mg/dL (Normal) White Blood Count 8.7 10^3/uL (4.4-10.8) Red Blood Count 3.36 10^6/uL (4.0-5.20) Hemoglobin 10.3 g/dL (12.2-16.2) Hematocrit 31.6 % (36.0-46.0) Mean Corpuscular Volume 94.2 fL (80.0-100.0) Mean Corpuscular Hemoglobin 30.7 pg (28.0-32.0) Mean Corpuscular Hemoglobin Concent 32.6 g/dL (32.0-36.0) Red Cell Distribution Width 15.9 % (11.8-14.3) Platelet Count 172 10^3/uL (140-450) Mean Platelet Volume 7.7 fL (6.9-10.8) Neutrophils (%) (Auto) 80.4 % (37.0-80.0) Lymphocytes (%) (Auto) 5.3 % (10.0-50.0) Monocytes (%) (Auto) 7.6 % (0.0-12.0) Eosinophils (%) (Auto) 6.1 % (0.0-7.0) Basophils (%) (Auto) 0.6 % (0.0-2.0) Neutrophils # (Auto) 7.0 10 ^3/uL (1.6-8.6) Lymphocytes # (Auto) 0.5 10 ^3/uL (0.4-5.4) Monocytes # (Auto) 0.7 10 ^3/uL (0-1.3) Eosinophils # (Auto) 0.5 10 ^3/uL (0-0.8) Basophils # (Auto) 0.1 10 ^3/uL (0-0.2) Nucleated Red Blood Cells 0.1 % Total Bilirubin 0.3 mg/dL (0.2-1.0) Aspartate Amino Transferase (AST) 15 U/L (13-40) Alanine Aminotransferase (ALT) 11 U/L (7-40) Alkaline Phosphatase 82 U/L (46-116) Total Protein 5.7 g/dL (5.7-8.2) Albumin 3.8 g/dL (3.2-4.8) Troponin I High Sensitivity 6 ng/L (</=34) Test 06/10/24 16:28 B-Type Natriuretic Peptide 256.38 pg/mL (0-100) Other Laboratory Tests 06/12/24 04:48 06/11/24 05:36 Brief Hx & Hospital Course: 74-year-old female with a history of coronary artery disease status post CABG status post pacemaker COPD home oxygen 4 liters/minute hyperlipidemia hypotension fibromyalgia came in for shortness of breaths. Found to have exacerbation of COPD treated with Levaquin Solu-Medrol seen by mixing supervisor for his CHF exacerbation advised to continue all home medications. At the time of discharge patient on 3 L of oxygen afebrile and wants to go home. Though she is allergic to Cipro she tells me that she took Levaquin in the past without any problem. Discharged home on Levaquin and Medrol Dosepak. She will follow up with the primary Dr and mixing supervisor Dr. Martinez and continue all her home medications. Consults/Reason for consult Cardiology Dr. Martinez Operations or Procedures None Condition at Discharge: Fair Final Diagnosis/Problems List #1 acute on chronic diastolic heart failure: lasix #2 cad s/p cabg #3 s/p pacer #4 copd with exacerbation: cont meds Levaquin, Solu-Medrol #5 chronic resp failure #6 hyperlipidemia #7 htn #8 fibromyalgia Use of home oxygen 4 L per mt Discharge Disposition: Home Discharge Instruct/Medications Diet: Cardiac 2g Na,low cholest Activity: Light activity Follow Up/Referral: Follow up with your primary Dr and with the mixing supervisor Dr. Martinez Resume all previous home meds Medications: Levaquin Medrol Dosepak Transmitted to pharmacy 39 (Time taken for discharge summary 39 minutes) Discharge Statement: "Patient was advised to return to the ER or call 911 if any headaches, dizziness, shortness of breath, chest pain, abdominal pain, bleeding, fevers, or worsening of medical condition. Patient was counseled about treatment plan, medications, possible side effects, patientverbalized understanding. All questions were answered to the best of my ability. This discharge took greater then 30 minutes in planning, reviewing documentation, counseling the patient, and discussing with other team members." DME: Diagnosis: GENERALIZED WEAKNESS ASSESSMENT ASSESSMENT Hospital Course Improved Assessment #1 acute on chronic diastolic heart failure: lasix #2 cad s/p cabg #3 s/p pacer #4 copd with exacerbation: cont meds Levaquin, Solu-Medrol #5 chronic resp failure #6 hyperlipidemia #7 htn #8 fibromyalgia Use of home oxygen 4 L per mt Date of Service: Jun 14, 2024 Billing Provider: JULIANNA SLOAN MD Common Visit Codes: 50125-ESV/OBS DISCH DAY >30min JULIANNA SLOAN MD Jun 14, 2024 09:14
[2024-06-14] MEDS: cefTRIAXone 1GM/50ML D5W 50 ML IV SCH (09:51)
== END 2024-06-14 15:10 | disposition home or self-care (01) | DRG 140 ==
LOC: ER 15:24 → EDBD 15:24 → TELE 20:01 → TELE-CENTR 22:54 → CENTRAL 06-12 11:51
PROVIDERS: ADMIT Nurse Practitioner Family; ATTEND Family Medicine
DX: J44.1 Chronic obstructive pulmonary disease with (acute) exacerbation (principal); I50.33 Acute on chronic diastolic (congestive) heart failure; I27.20 Pulmonary hypertension, unspecified; J96.10 Chronic respiratory failure, unspecified whether with hypoxia or hypercapnia; I11.0 Hypertensive heart disease with heart failure; K21.9 Gastro-esophageal reflux disease without esophagitis; T50.Z95A Adverse effect of other vaccines and biological substances, initial encounter; J84.10 Pulmonary fibrosis, unspecified; E11.51 Type 2 diabetes mellitus with diabetic peripheral angiopathy without gangrene; M79.7 Fibromyalgia; I25.10 Atherosclerotic heart disease of native coronary artery without angina pectoris; E78.5 Hyperlipidemia, unspecified; F41.9 Anxiety disorder, unspecified; Z95.0 Presence of cardiac pacemaker; Z88.1 Allergy status to other antibiotic agents; Z88.0 Allergy status to penicillin; Z88.6 Allergy status to analgesic agent; Z88.8 Allergy status to other drugs, medicaments and biological substances; Z99.81 Dependence on supplemental oxygen; Z98.61 Coronary angioplasty status; Z95.1 Presence of aortocoronary bypass graft; Z90.710 Acquired absence of both cervix and uterus; Z90.49 Acquired absence of other specified parts of digestive tract; Z87.891 Personal history of nicotine dependence; Z86.73 Personal history of transient ischemic attack (TIA), and cerebral infarction without residual deficits; Z80.1 Family history of malignant neoplasm of trachea, bronchus and lung; Z79.899 Other long term (current) drug therapy; Z79.82 Long term (current) use of aspirin; Z79.02 Long term (current) use of antithrombotics/antiplatelets; Y92.89 Other specified places as the place of occurrence of the external cause
CPT/HCPCS: 36415; 71045; 80048; 80053; 81001; 83735; 83880; 84484; 85025; 93005; 94640; 97110; 97163; 99291; G0378; J2405; J2470

== ENCOUNTER → 2024-07-11 | Outpatient (CLI) | payer MEDICARE, MEDICAID ==
[~2024-07-11] MED LIST changes: -CEPH250C PO; -FLUT1INH28 INH; -ISO60SRT PO; +LEVO500T91 PO; +METH4PAK PO; -PRED20TA2 PO
[2024-07-11 12:56] LABS: Basophils # (auto) 0 10 ^3/uL (0-0.2); Basophils % (auto) 0.4 % (0.0-2.0); Eosinophils # (auto) 0.4 10 ^3/uL (0-0.8); Eosinophils % (auto) 4.4 % (0.0-7.0); Hematocrit 31.7 % (36.0-46.0); Hemoglobin 10.5 g/dL (12.2-16.2); Lymphocytes # (auto) 0.8 10 ^3/uL (0.4-5.4); Lymphocytes % (auto) 8.9 % (10.0-50.0); Mean Corpuscular Hemoglobin 30.6 pg (28.0-32.0); Mean Corpuscular Hgb Conc. 33.1 g/dL (32.0-36.0); Mean Corpuscular Volume 92.3 fL (80.0-100.0); Monocytes # (auto) 0.6 10 ^3/uL (0-1.3); Monocytes % (auto) 6.2 % (0.0-12.0); Neutrophils # (auto) 7.4 10 ^3/uL (1.6-8.6); Neutrophils % (auto) 80.1 % (37.0-80.0); Platelet Count (auto) 238 10^3/uL (140-450); Red Blood Cells 3.44 10^6/uL (4.0-5.20); Red Cell Distribution Width 15.4 % (11.8-14.3); White Blood Cell 9.3 10^3/uL (4.4-10.8)
[2024-07-11 13:22] LABS: Alanine Aminotransferase 17 U/L (7-40); Albumin 4.2 g/dL (3.2-4.8); Alkaline Phosphatase 91 U/L (46-116); Anion Gap 7 (5-15); Aspartate Aminotransferase 19 U/L (13-40); BUN/Creatinine Ratio 19.4 (10.0-20.0); Bilirubin, Direct 0.1 mg/dL (<0.3); Blood Urea Nitrogen 13 mg/dL (9-23); Calcium 9.7 mg/dL (8.7-10.4); Carbon Dioxide 28 mmol/L (20-31); Cholesterol 111 mg/dL (< 200); Glucose 92 mg/dL (74-106); LDL Cholesterol 33 mg/dL (< 100); Potassium 3.7 mmol/L (3.5-5.1); Sodium 142 mmol/L (136-145); Triglycerides 145 mg/dL (< 150)
[2024-07-11 13:23] LABS: Total Protein 6.3 g/dL (5.7-8.2)
[2024-07-11 13:25] LABS: Bilirubin, Total 0.3 mg/dL (0.2-1.0); Chloride 107 mmol/L (98-107); HDL Cholesterol 60 mg/dL (40-59)
== END | disposition home or self-care (01) ==
LOC: LAB 12:30
PROVIDERS: ATTEND Specialist
DX: I10 Essential (primary) hypertension (principal); E11.9 Type 2 diabetes mellitus without complications; R68.89 Other general symptoms and signs; E03.9 Hypothyroidism, unspecified; D64.9 Anemia, unspecified; E78.5 Hyperlipidemia, unspecified
CPT/HCPCS: 36415; 80053; 80061; 82248; 84443; 85025

== ENCOUNTER 2024-08-02 12:29 | Inpatient (IN) | payer MEDICARE, MEDICAID ==
[~2024-08-02] VITALS: Ht 160 cm; Wt 152.5 kg
--- NOTE | 2024-08-02 13:36 | ED.PDOC ---
SOB-HPI HPI Comments 74 yo female with PMH of COPD, CHF, anemia, CVA, DM, GERD, HDL, HTN, PA, p resents to the ED for a chief complaint of SOB associated with a productive cough, chills, and congestion that started 3 days ago. Patient reports symptoms have progressively worsened and state they are similar to previous PNA and pleural effusion diagnoses in her prior visits. Patient has some tenderness to chest wall region on palpation only. Patient denies any fever, chills, nausea, vomiting, diarrhea. 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 History: No Pertinent NEEDLE PUNCH OPERATOR History, Ovarian Cysts Family History Family History: Reviewed,noncontributory to illness, Family hx of DM, Family hx of Cancer, Family hx of heart fran Social History Smoker: Quit Greater Than 1 Year Alcohol: Denies ETOH Use Drugs: Denies Drug Use Lives In: Home Constitutional: denies: chills, diaphoresis, fatigue, fever, malaise, sweats, weakness, others EENTM: reports: nose congestion; denies: blurred vision, double vision, ear bleeding, ear discharge, ear drainage, ear pain, ear ringing, eye pain, eye redness, hearing loss, mouth pain, mouth swelling, nasal discharge, nose blee ding, nose pain, photophobia, tearing, throat pain, throat swelling, voice changes, others Respiratory: reports: cough, SOB at rest, shortness of breath, SOB with excertion; denies: hemoptysis, orthopnea, stridor, wheezing, others Cardiovascular: denies: chest pain, dizzy spells, diaphoresis, Dyspnea on exertion, edema, irregular heart beat, left arm pain, lightheadedness, palpitat ions, PND, syncope, others Gastrointestinal: denies: abdomen distended, abdominal pain, blood streaked bow els, constipated, diarrhea, dysphagia, difficulty swallowing, hematemesis, melena, nausea, poor appetite, poor fluid intake, rectal bleeding, rectal pain, vomiting, others Genitourinary: denies: abnormal vagina bleeding, burning, dyspareunia, dysuria, flank pain, frequency, hematuria, incontinence, pain, , vagina discharge, urgency, others Neurological: denies: dizziness, fainting, headache, left sided numbness, left sided weakness, numbness, paresthesia, pre-existing deficit, right sided numbness, right sided weakness, seizure, speech problems, tingling, tremors, weakness, others Musculoskeletal: denies: back pain, gout, joint pain, joint swelling, muscle pain, muscle stiffness, neck pain, others Integumetry: denies: bruises, change in color, change in hair/nails, dryness, laceration, lesions, lumps, rash, wounds, others Allergic/Immunocompromised: denies: Difficulty Healing, Frequent Infections, Hives, Itching, others Hematologic/Lymphatic: denies: anemia, blood clots, easy bleeding, easy bruisi ng, swollen glands, others Endocrine: denies: excessive hunger, excessive sweating, excessive thirst, exce ssive urination, flushing, intolerance to cold, intolerance to heat, unexplained weight gain, unexplained weight loss, others Psychiatric: denies: anxiety, bipolar disorder, depression, hopeless, panic disorder, schizophrenia, sleepless, suicidal, others All Other Systems: Reviewed and Negative Physical Exam General Appearance: No Apparent Distress, Normal HEENT: Normal ENT Inspection, Pharynx Normal, TMs Normal Neck: Full Range of Motion, Non-Tender, Normal, Normal Inspection Respiratory: Chest Non-Tender, Lungs Clear, No Accessory Muscle Use, No Respiratory Distress, Normal Breath Sounds Cardiovascular: No Edema, No JVD, No Murmur, No Gallop, Normal Peripheral Pulses, Regular Rate/Rhythm Breast Exam: Deferred Gastrointestinal: No Organomegaly, Non Tender, No Pulsatile Mass, Normal Bowel Sounds, Soft Genitalia: Deferred Pelvic: Deferred Rectal: Deferred Extremities: No calf tenderness, Normal capillary refill, Normal inspection, Normal range of motion, Non-tender, No pedal edema Musculoskeletal : Location: Bilateral Extremity Location: Chest Apperance: Tenderness: Mild Neurologic: Alert, florist helper II-XII nml as Tested, No Motor Deficits, Normal Affect, Normal Mood, No Sensory Deficits Cerebellar Function: Normal Reflexes: Normal Skin: Dry, Normal Color, Warm Lymphatic: No Adenopathy Was a procedure done? Was a procedure done?: No Differential Dx Differential Diagnosis: Bronchitis, CHF, COPD, Pneumonia, Respiratory Distress, URI X-Ray, Labs, Meds, VS Vital Signs Date Time Temp Pulse Resp B/P (MAP) Pulse Ox O2 Delivery O2 Flow Rate FiO2 08/02/24 12:41 18 99 Nasal Cannula* 6 44 08/02/24 12:35 78 08/02/24 12:34 98.1 95 18 117/74 (88) 99 Lab Test 08/02/24 14:01 Range/Units White Blood Count 7.6 4.4-10.8 10^3/uL Red Blood Count 3.64 L 4.0-5.20 10^6/uL Hemoglobin 11.0 L 12.2-16.2 g/dL Hematocrit 34.1 L 36.0-46.0 % Mean Corpuscular Volume 93.9 80.0-100.0 fL Mean Corpuscular Hemoglobin 30.4 28.0-32.0 pg Mean Corpuscular Hemoglobin Concent 32.4 32.0-36.0 g/dL Red Cell Distribution Width 16.8 H 11.8-14.3 % Platelet Count 213 140-450 10^3/uL Mean Platelet Volume 7.3 6.9-10.8 fL Neutrophils (%) (Auto) 72.5 37.0-80.0 % Lymphocytes (%) (Auto) 7.9 L 10.0-50.0 % Monocytes (%) (Auto) 11.2 0.0-12.0 % Eosinophils (%) (Auto) 7.6 H 0.0-7.0 % Basophils (%) (Auto) 0.8 0.0-2.0 % Neutrophils # (Auto) 5.5 1.6-8.6 10 ^3/uL Lymphocytes # (Auto) 0.6 0.4-5.4 10 ^3/uL Monocytes # (Auto) 0.9 0-1.3 10 ^3/uL Eosinophils # (Auto) 0.6 0-0.8 10 ^3/uL Basophils # (Auto) 0.1 0-0.2 10 ^3/uL Nucleated Red Blood Cells 0.0 % Prothrombin Time 12.8 H 9.3-11.8 sec Prothrombin Time INR 1.23 H 0.9-1.15 Activated Partial Thromboplast Time 29.1 24.5-34.5 SEC D-Dimer, Quantitative 0.68 H 0.0-0.49 mg/L FEU Sodium Level 139 136-145 mmol/L Potassium Level 4.0 3.5-5.1 mmol/L Chloride Level 106 98-107 mmol/L Carbon Dioxide Level 27 20-31 mmol/L Anion Gap 6 5-15 Blood Urea Nitrogen 13 9-23 mg/dL Creatinine 0.84 0.550-1.02 mg/dL Glomerular Filtration Rate Calc 72 >90 mL/min BUN/Creatinine Ratio 15.5 10.0-20.0 Serum Glucose 100 74-106 mg/dL Calcium Level 9.5 8.7-10.4 mg/dL Magnesium Level 2.0 1.6-2.6 mg/dL Total Bilirubin 0.3 0.2-1.0 mg/dL Aspartate Amino Transferase (AST) 22 13-40 U/L Alanine Aminotransferase (ALT) 19 7-40 U/L Alkaline Phosphatase 96 46-116 U/L B-Type Natriuretic Peptide 100.06 0-100 pg/mL Total Protein 6.5 5.7-8.2 g/dL Albumin 4.2 3.2-4.8 g/dL X-Ray, Labs, Meds, VS Comment This 74-year-old female presents secondary worsening of her shortness of breath. Imaging shows pulmonary fibrosis. The patient denies being on oxygen baseline. However, here, we are unable to wean her off O2. Secondary to her profound hypoxia and possibly new diagnosis of pulmonary fibrosis, we will admit the patient for further workup and management. Time of 1ST Reevaluation: 13:34 Reevaluation 1ST: Unchanged Patient Education/Counseling: Diagnosis, Treatment, Prognosis Family Education/Counseling: No Family Present Additional Information I reviewed the following notes from patient's past medical encounters: The following tests were ordered, and results were reviewed by me: (Labs, XY, EKG): UA, CBC, CMP, D-dimer, magnesium, BNP, Covid swab and EKG x1 Additional Information was gathered from interviewing the following independent historians: (Family, Other Providers, EMT): None I reviewed and agreed with the following test results read by other providers: (X-Ray, CT, US): Radiologist I discussed treatment and results with medical personnel and: (Consultants, Family): None Departure 1 Departure Time of Disposition: 15:54 Impression: Primary Impression: Hypoxia Additional Impressions: Dyspnea Pulmonary fibrosis Respiratory failure Disposition: ADMITTED INPATIENT Condition: Serious Critical Care Note Critical Care Time?: No Stability Stability form required: No I personally scribed for STARLA MARTINEZ MD ([email or web address]) on 08/02/24 at 13:36. Electronically submitted by Dariana Salamanca ([facility]). I personally scribed for STARLA MARTINEZ MD ([email or web address]) on 08/02/24 at 14:40. Electronically submitted by Dariana Salamanca ([facility]). STARLA MARTINEZ MD Aug 02, 2024 13:36
[2024-08-02 14:18] LABS: Basophils # (auto) 0.1 10 ^3/uL (0-0.2); Basophils % (auto) 0.8 % (0.0-2.0); Eosinophils # (auto) 0.6 10 ^3/uL (0-0.8); Eosinophils % (auto) 7.6 % (0.0-7.0); Hematocrit 34.1 % (36.0-46.0); Lymphocytes # (auto) 0.6 10 ^3/uL (0.4-5.4); Lymphocytes % (auto) 7.9 % (10.0-50.0); Mean Corpuscular Hemoglobin 30.4 pg (28.0-32.0); Mean Corpuscular Hgb Conc. 32.4 g/dL (32.0-36.0); Mean Corpuscular Volume 93.9 fL (80.0-100.0); Monocytes # (auto) 0.9 10 ^3/uL (0-1.3); Monocytes % (auto) 11.2 % (0.0-12.0); Neutrophils # (auto) 5.5 10 ^3/uL (1.6-8.6); Neutrophils % (auto) 72.5 % (37.0-80.0); Platelet Count (auto) 213 10^3/uL (140-450); Red Blood Cells 3.64 10^6/uL (4.0-5.20); Red Cell Distribution Width 16.8 % (11.8-14.3); White Blood Cell 7.6 10^3/uL (4.4-10.8)
[2024-08-02 14:32] LABS: Alanine Aminotransferase 19 U/L (7-40); Albumin 4.2 g/dL (3.2-4.8); Alkaline Phosphatase 96 U/L (46-116); Anion Gap 6 (5-15); Aspartate Aminotransferase 22 U/L (13-40); BUN/Creatinine Ratio 15.5 (10.0-20.0); Blood Urea Nitrogen 13 mg/dL (9-23); Calcium 9.5 mg/dL (8.7-10.4); Carbon Dioxide 27 mmol/L (20-31); Chloride 106 mmol/L (98-107); Glucose 100 mg/dL (74-106); Sodium 139 mmol/L (136-145)
[2024-08-02 14:33] LABS: INR 1.23 (0.9-1.15); Partial Thromboplastin Time 29.1 SEC (24.5-34.5); Prothrombin Time 12.8 sec (9.3-11.8); Total Protein 6.5 g/dL (5.7-8.2)
[2024-08-02 14:47] LABS: Bilirubin, Total 0.3 mg/dL (0.2-1.0)
--- NOTE | 2024-08-02 14:49 | DVH ---
EXAM: XY CHEST PORTABLE Indication: cough Technique: Single frontal view of the chest was obtained Comparison: XY CHEST PORTABLE on DOS: 06/10/24, XY CHEST PORTABLE on DOS: 02/20/24, XY CHEST PORTABLE o n DOS: 12/25/23, XY CHEST PORTABLE on DOS: 10/10/23, XY CHEST PORTABLE on DOS: 09/06/23 FINDINGS: Lines and Tubes: Cardiac pacemaker projects over left chest wall. Lungs: No focal consolidation. Diffuse interstitial opacities. Pleura: No effusion. No pneumothorax. Cardiomediastinal contours: Unremarkable Bones: No acute osseous abnormality. IMPRESSION: Mild pulmonary fibrosis.
[2024-08-02] MEDS ORDERED: DOCUSATE SOD 100 MG CAP PO PRN (20:45)
[2024-08-02] MEDS ORDERED: ACETAMINOPHEN 325 MG TAB PO PRN (20:45)
[2024-08-02] MEDS ORDERED: DEXTROSE (50%) 50ML SYRG IV PRN (20:45)
[2024-08-02] MEDS ORDERED: ONDANSETRON HCL 4 MG/2 ML VIAL IV PRN (20:45)
[2024-08-02 21:11] LABS: COVID19 ANTIGEN SOFIA FIA NEGATIVE (NEGATIVE); Rapid Influenza A Negative (Negative); Rapid Influenza B Negative (Negative)
[2024-08-02] MEDS: SODIUM CHLOR 0.9% PF (SALINE LOCK) 10ML VIAL/SYR IV SCH (22:00)
--- NOTE | 2024-08-02 22:27 | DVHHP2 ---
History of Present Illness Reason for Visit: Pulmonary fibrosis History of Present Illness The patient is a 74-year-old female with multiple past medical history including CHF, COPD, CVA, DM, and hypertension who presented to [facility] ED with complaint of shortness of breaths. Patient reports symptoms progressively get worse with productive cough, chest pressure, chills, congestion, SOB at rest, getting worse that prompted this visit. Patient was seen and evaluated in the ED, laboratory data shows WBC 7.6, platelets 213, sodium 139, potassium 4.0, BUN 13, creatinine 0.84, glucose 100, BNP 100.06. Chest x-ray revealing mild pulmonary fibrosis. Please see medication orders section in the computer. On my assessment, patient denied chest pain, no headache, no dizziness, no diaphoresis, no abdominal pain, no diarrhea, no nausea, no vomiting, fever, no chills. Patient was admitted for further evaluation and medical management. Past Medical History Anemia, Asthma, CHF, COPD, CVA, DM, GERD, High Lipids, HTN, [place] Past Surgical History CABG, Cholecystectomy, Hysterectomy, Pacemaker, PTCA Family History Reviewed, noncontributory to the management of this case. Past Social History The patient lives at home, denies smoking, alcohol or illicit drugs abuse. Review of Systems Constitutional: Yes: Weakness; No: Fever, Chills, Sweats, Malaise, Other Eyes: No: Pain, Vision change, Conjunctivae inflammation, Eyelid inflammation, Other, Redness ENT: Nose congestion; No: Ear pain, Ear discharge, Nose pain, Nose discharge, Mouth pain, Mouth swelling, Throat pain, Throat swelling, Other Respiratory: Cough, Shortness of breath, SOB with excertion, Other (SOB at rest); No: Dry, Wheezing, Hemoptysis, Pleuritic Pain, Sputum, Wheezing Cardiovascular: No: Chest Pain, Palpitations, Orthopnea, Paroxysmal Noc. Dyspnea, Edema, Lt Headedness, Other Gastrointestinal: No: Nausea, Vomiting, Abdominal Pain, Diarrhea, Constipation, Melena, Hematochezia, Other Genitourinary: No Dysuria, No Frequency, No Incontinence, No Hematuria, No Retention, No Other Musculoskeletal: No: other, neck pain, shoulder pain, arm pain, back pain, hand pain, leg pain, foot pain Skin: No: Rash, Lesions, Jaundice, Bruising, Other Neurological: No: Weakness, Numbness, Incoordination, Change in speech, Confusion, Seizures, Other Allergies: Coded Allergies: Doxycycline (Verified Allergy, Severe, 04/05/22) Nitrofurantoin (Verified Allergy, Severe, 04/05/22) Amoxicillin (Verified Allergy, Mild, 09/07/23) 09/07/23: FEED ELEVATOR WORKERJOHANNA, SPOKE WITH PATIENT. SHE POSSIBLY RECALLS TAKING AMOXICILLIN BEFORE, DENIES ANY RASHES, ITCHINESS, S/SX OF ANAPHYLAXIS. Ciprofloxacin (Verified Allergy, Mild, 09/07/23) 09/07/23: FEED ELEVATOR WORKER, JOHANNA, SPOKE WITH PATIENT. SHE MENTIONED LAST TIME SHE RECIEVED CIPRO INJECTION WAS A WHILE AGO. PATIENT ENDORSED SMALL BUMPS ON THE SKIN BUT PER PATIENT COULD HAVE BEEN DUE TO FAST INJECTION. HAS TAKEN LEVAQUIN PO BEFORE AND DENIES ANY RASH, ITCHINESS, S/SX OF ANAPHYLAXIS. Medications Current Medications Medications Dose Ordered Sig/Romaine Route Start Time Stop Time Status Last Admin Dose Admin Methylprednisolone Sodium Succinate 40 mg Q8HR IV 08/02/24 22:00 Aspirin 81 mg DAILY PO 08/03/24 10:00 Atorvastatin Calcium 20 mg HS PO 08/02/24 22:00 Albuterol 2.5 mg Q4HPRN PRN NEB 08/02/24 20:45 Ipratropium [place] 0.5 mg Q4HPRN PRN NEB 08/02/24 20:45 Hydralazine HCl 10 mg Q6HP PRN IV 08/02/24 20:45 Famotidine 10 mg DAILY IV 08/02/24 22:00 Diagnostic Test (Pha) 1 strip ACHS 08/02/24 22:00 Insulin Human Regular ACHS SC 08/02/24 22:00 Dextrose 50 ml UD PRN IV 08/02/24 20:45 Sodium Chloride 10 ml Q8HR IV 08/02/24 22:00 Acetaminophen/ Hydrocodone Bitart 1 tab Q4HP PRN PO 08/02/24 20:45 Ondansetron HCl 4 mg Q4HP PRN IV 08/02/24 20:45 Docusate Sodium 100 mg BIDPRN PRN PO 08/02/24 20:45 Acetaminophen 650 mg Q6HP PRN PO 08/02/24 20:45 Exam Vital Signs Vital Signs Date Time Temp Pulse Resp B/P (MAP) Pulse Ox O2 Delivery O2 Flow Rate FiO2 08/02/24 17:26 82 20 100 Room Air 08/02/24 17: 99.2 114/69 (84) 99.2 08/02/24 12:41 6 44 General Appearance: Alert, Oriented X3, Cooperative, No acute distress HEENT: Atraumatic, PERRLA, EOMI, Mucous membr. moist/pink Respiratory: Normal air movement, Other (Diminished breath sounds) Cardiovascular: Regular rate, Normal S1, Normal S2, No murmurs Abdominal: Normal bowel sounds, Soft, No tenderness, No hepatospenomegaly, No masses Extremities: No clubbing, No cyanosis, No edema, Normal pulses, No tenderness/swelling Skin: No rashes, No breakdown, No significant lesion Neuro: Normal speech, Normal tone, Sensation intact, Cranial nerves 3-12 NL, Reflexes 2+, Other (Generalized weakness) Psych/Mental Status: Mental status NL, Mood NL Labs/Xrays Labs Test 08/02/24 20:14 08/02/24 14:01 Range/Units Influenza Type A Antigen Negative Negative Influenza Type B Antigen Negative Negative SARS-CoV-2 Antigen (Rapid) Negative NEGATIVE White Blood Count 7.6 4.4-10.8 10^3/uL Red Blood Count 3.64 L 4.0-5.20 10^6/uL Hemoglobin 11.0 L 12.2-16.2 g/dL Hematocrit 34.1 L 36.0-46.0 % Mean Corpuscular Volume 93.9 80.0-100.0 fL Mean Corpuscular Hemoglobin 30.4 28.0-32.0 pg Mean Corpuscular Hemoglobin Concent 32.4 32.0-36.0 g/dL Red Cell Distribution Width 16.8 H 11.8-14.3 % Platelet Count 213 140-450 10^3/uL Mean Platelet Volume 7.3 6.9-10.8 fL Neutrophils (%) (Auto) 72.5 37.0-80.0 % Lymphocytes (%) (Auto) 7.9 L 10.0-50.0 % Monocytes (%) (Auto) 11.2 0.0-12.0 % Eosinophils (%) (Auto) 7.6 H 0.0-7.0 % Basophils (%) (Auto) 0.8 0.0-2.0 % Neutrophils # (Auto) 5.5 1.6-8.6 10 ^3/uL Lymphocytes # (Auto) 0.6 0.4-5.4 10 ^3/uL Monocytes # (Auto) 0.9 0-1.3 10 ^3/uL Eosinophils # (Auto) 0.6 0-0.8 10 ^3/uL Basophils # (Auto) 0.1 0-0.2 10 ^3/uL Nucleated Red Blood Cells 0.0 % Prothrombin Time 12.8 H 9.3-11.8 sec Prothrombin Time INR 1.23 H 0.9-1.15 Activated Partial Thromboplast Time 29.1 24.5-34.5 SEC D-Dimer, Quantitative 0.68 H 0.0-0.49 mg/L FEU Sodium Level 139 136-145 mmol/L Potassium Level 4.0 3.5-5.1 mmol/L Chloride Level 106 98-107 mmol/L Carbon Dioxide Level 27 20-31 mmol/L Anion Gap 6 5-15 Blood Urea Nitrogen 13 9-23 mg/dL Creatinine 0.84 0.550-1.02 mg/dL Glomerular Filtration Rate Calc 72 >90 mL/min BUN/Creatinine Ratio 15.5 10.0-20.0 Serum Glucose 100 74-106 mg/dL Calcium Level 9.5 8.7-10.4 mg/dL Magnesium Level 2.0 1.6-2.6 mg/dL Total Bilirubin 0.3 0.2-1.0 mg/dL Aspartate Amino Transferase (AST) 22 13-40 U/L Alanine Aminotransferase (ALT) 19 7-40 U/L Alkaline Phosphatase 96 46-116 U/L B-Type Natriuretic Peptide 100.06 0-100 pg/mL Total Protein 6.5 5.7-8.2 g/dL Albumin 4.2 3.2-4.8 g/dL PATIENT: EUN PAIZ ACCT: [id number] UNIT: [id number] : 1950 LOC: ER ROOM / BED: / AGE / SEX: 74 / F ADM STATUS: REG ER SERVICE 1340 ORDERING PHYSICIAN: STARLA MARTINEZ MD PROCEDURE(s): CXRP - CHEST PORTABLE REASON: cough ORDER NUMBER(s): [id number], ACCESSION NUMBER(s): [id number] EXAM: XY CHEST PORTABLE Indication: cough Technique: Single frontal view of the chest was obtained Comparison: XY CHEST PORTABLE on DOS: 06/10/24, XY CHEST PORTABLE on DOS: 02/20/24, XY CHEST PORTABLE on DOS: 12/25/23, XY CHEST PORTABLE on DOS: 10/10/23, XY CHEST PORTABLE on DOS: 09/06/23 FINDINGS: Lines and Tubes: Cardiac pacemaker projects over left chest wall. Lungs: No focal consolidation. Diffuse interstitial opacities. Pleura: No effusion. No pneumothorax. Cardiomediastinal contours: Unremarkable Bones: No acute osseous abnormality. IMPRESSION: Mild pulmonary fibrosis. Assessment/Plan Assessment/Plan Dyspnea Generalized weakness Pulmonary fibrosis Acute respiratory failure with hypoxia Plan 1. Admit to telemetry unit 2. Breathing treatment 3. Pain control management 4. Management of fluids and electrolytes 5. Consultation for hospitalist 6. Diagnostic tests chest x-ray 7. DVT prophylaxis-on aspirin 8. Repeat labs CBC, CMP in a.m. 9. Continue with current medical management 10. Treatment plan discussed with patient and RN. Patient verbalized understanding. Plan discussed with: Patient, Other (RN) My Orders Orders - JOSÉ MIGUEL MELGOZA DNP Procedure Category Date Status Time Consistent DIET 08/03/24 Transmitted Carb(Ccho)Diabetes Breakfast Methylprednisolone PHA 08/02/24 In Process Sod Succ (Solu Medrol 22:00 Aspirin Tablet PHA 08/03/24 In Process 10:00 Atorvastatin (Lipitor) PHA 08/02/24 In Process 22:00 Albuterol Medneb PHA 08/02/24 In Process (Ventolin Medneb) 20:45 Ipratropium Medneb PHA 08/02/24 In Process (Atrovent Medneb) 20:45 Hydralazine Injection PHA 08/02/24 In Process (Apresoline Inject 20:45 Famotidine Injection PHA 08/02/24 In Process (Pepcid Injection) 22:00 Glucose Blood PHA 08/02/24 In Process (Accu-Chek Comfort 22:00 Insulin R (Human) PHA 08/02/24 In Process (Insulin R) 22:00 Dextrose 50% Syringe PHA 08/02/24 In Process 20:45 Allergies LESLIE 08/02/24 In Process 20:38 Code Status CODE 08/02/24 Transmitted 20:38 Sodium Chloride Lock PHA 08/02/24 In Process (Saline Lock Ns) 22:00 Oxygen Per Hour RT 08/02/24 Transmitted 20:38 Hydrocodone-Acet PHA 08/02/24 In Process 5/325mg Tab ([place] 20:45 Ondansetron Hcl PHA 08/02/24 In Process (Zofran) 20:45 Docusate Sodium PHA 08/02/24 In Process Capsule (Colace 20:45 Complete Blood Count LAB 08/03/24 Verified 04:00 Comprehensive LAB 08/03/24 Verified Metabolic Panel 04:00 Condition: Serious LESLIE 08/02/24 In Process 20:38 Acetaminophen Tablet PHA 08/02/24 In Process (Tylenol Tablet) 20:45 Bedrest With Bathroom LESLIE 08/02/24 In Process Privileg 20:38 Sequential LESLIE 08/02/24 In Process Compression Device Problem List: (1) Dyspnea (2) Generalized weakness (3) Pulmonary fibrosis (4) Acute respiratory failure with hypoxia Date of Service: Aug 02, 2024 Billing Provider: JOSÉ MIGUEL MELGOZA DNP Common Visit Codes: [id number] INP/OBS CARE (HIGH) JOSÉ MIGUEL MELGOZA DNP Aug 02, 2024 22:27
[2024-08-02] MEDS ORDERED: NITROGLYCERIN 0.4 MG SL TAB SL PRN (22:30)
[2024-08-02] MEDS ORDERED: MORPHINE SULFATE INJ 2 MG/ml SYRG IV PRN (22:30)
[2024-08-02 23:12] VITALS: BP 114/69; TEMP 99.2; O2SAT 100
[2024-08-02] MEDS: ATORVASTATIN 20 MG TAB PO SCH (23:32)
[2024-08-02] MEDS: ACETAMINOPHEN 325 MG TAB PO ONE (23:32)
[2024-08-02] MEDS: FAMOTIDINE (10MG/ML) 2ML VL IV SCH (23:58)
[2024-08-02] MEDS: ACCU-CHEK COMFORT CURVE STRIP VI SCH (23:58)
[2024-08-02] MEDS: methylPREDNISolone SOD SUCC 40 MG/ML VL IV SCH (23:58)
[2024-08-02] MEDS: InsuLIN REG 1unit/0.01ml Soln (100units/ml) SC SCH (23:59)
[2024-08-03] VITALS (16 sets, daily range): BP systolic 107–139; BP diastolic 53–65; PULSE 64–100; RESP 16–20; TEMP 97.3–98.6; O2SAT 94–100
[2024-08-03 07:04] LABS: Basophils # (auto) 0 10 ^3/uL (0-0.2); Basophils % (auto) 0.3 % (0.0-2.0); Eosinophils # (auto) 0 10 ^3/uL (0-0.8); Eosinophils % (auto) 0.1 % (0.0-7.0); Hematocrit 31.2 % (36.0-46.0); Hemoglobin 10.6 g/dL (12.2-16.2); Lymphocytes # (auto) 0.4 10 ^3/uL (0.4-5.4); Lymphocytes % (auto) 5.8 % (10.0-50.0); Mean Corpuscular Hemoglobin 31.3 pg (28.0-32.0); Mean Corpuscular Volume 92.1 fL (80.0-100.0); Monocytes # (auto) 0.1 10 ^3/uL (0-1.3); Monocytes % (auto) 1.4 % (0.0-12.0); Neutrophils # (auto) 6.8 10 ^3/uL (1.6-8.6); Neutrophils % (auto) 92.4 % (37.0-80.0); Platelet Count (auto) 211 10^3/uL (140-450); Red Blood Cells 3.39 10^6/uL (4.0-5.20); Red Cell Distribution Width 16.1 % (11.8-14.3); White Blood Cell 7.4 10^3/uL (4.4-10.8)
[2024-08-03 07:33] LABS: Alanine Aminotransferase 19 U/L (7-40); Albumin 4.2 g/dL (3.2-4.8); Anion Gap 10 (5-15); Aspartate Aminotransferase 19 U/L (13-40); BUN/Creatinine Ratio 23.2 (10.0-20.0); Blood Urea Nitrogen 16 mg/dL (9-23); Calcium 9.7 mg/dL (8.7-10.4); Carbon Dioxide 26 mmol/L (20-31)
[2024-08-03 07:34] LABS: Total Protein 6.3 g/dL (5.7-8.2)
[2024-08-03] MEDS: ASPirin 81 mg TAB PO SCH (07:44)
[2024-08-03 08:53] LABS: Alkaline Phosphatase 91 U/L (46-116); Bilirubin, Total 0.3 mg/dL (0.2-1.0); Chloride 105 mmol/L (98-107); Glucose 154 mg/dL (74-106); Sodium 141 mmol/L (136-145)
[2024-08-03] MEDS: IPRATROPIUM BROM 0.5 MG/2.5ML INH SOL NEB PRN (11:52)
[2024-08-03] MEDS: ALBUTEROL SULF 2.5 MG/0.5ML(0.5%) NEB SOLN NEB PRN (11:52)
--- NOTE | 2024-08-03 12:59 | DVHPN2 ---
Reviewed: Care Plan, H&P, Labs, Medications, Previous Orders, Radiology Changes from previous H/P or p: No Changes Eyes: No Pain, No Vision change, No Conjunctivae inflammation, No Eyelid inflammation, No Other, No Redness ENT: No Ear pain, No Ear discharge, No Nose pain, No Nose discharge; Nose congestion; No Mouth pain, No Mouth swelling, No Throat pain, No Throat swelling, No Other Cardiovascular: No Chest Pain, No Palpitations, No Orthopnea, No Paroxysmal Noc. Dyspnea, No Edema, No Lt Headedness, No Other Respiratory: Cough; No Dry; Shortness of breath, SOB with excertion; No Wheezing, No Hemoptysis, No Pleuritic Pain, No Sputum; Other (SOB at rest) Gastrointestinal: No Nausea, No Vomiting, No Abdominal Pain, No Diarrhea, No Constipation, No Melena, No Hematochezia, No Other Genitourinary: No Dysuria, No Frequency, No Incontinence, No Hematuria, No Retention, No Other Musculoskeletal: No other, No neck pain, No shoulder pain, No arm pain, No back pain, No hand pain, No leg pain, No foot pain Skin: No Rash, No Lesions, No Jaundice, No Bruising, No Other Objective Vitals Vital Signs Date Time Temp Pulse Resp B/P (MAP) Pulse Ox O2 Delivery O2 Flow Rate FiO2 08/03/24 11:59 92 16 99 08/03/24 11:52 Nasal Cannula* 3 32 08/03/24 05:21 98.1 129/61 (83) 98.1 Intake/Output Intake and Output 08/03/24 07:00 Intake Total 100 ml Balance 100 ml Intake Oral 100 ml # Voids 1 Medications Current Medications Medications Dose Ordered Sig/Romaine Route Start Time Stop Time Status Last Admin Dose Admin Methylprednisolone Sodium Succinate 40 mg Q8HR IV 08/02/24 22:00 08/03/24 05:57 40 MG Aspirin 81 mg DAILY PO 08/03/24 10:00 08/03/24 07:44 81 MG Atorvastatin Calcium 20 mg HS PO 08/02/24 22:00 08/02/24 23:32 20 MG Albuterol 2.5 mg Q4HPRN PRN NEB 08/02/24 20:45 08/03/24 11:52 2.5 MG Ipratropium [place] 0.5 mg Q4HPRN PRN NEB 08/02/24 20:45 08/03/24 11:52 0.5 MG Hydralazine HCl 10 mg Q6HP PRN IV 08/02/24 20:45 Famotidine 10 mg DAILY IV 08/02/24 22:00 08/03/24 07:43 10 MG Diagnostic Test (Pha) 1 strip ACHS 08/02/24 22:00 08/03/24 10:42 1 STRIP Insulin Human Regular ACHS SC 08/02/24 22:00 Dextrose 50 ml UD PRN IV 08/02/24 20:45 Sodium Chloride 10 ml Q8HR IV 08/02/24 22:00 08/03/24 10:42 10 ML Acetaminophen/ Hydrocodone Bitart 1 tab Q4HP PRN PO 08/02/24 20:45 Ondansetron HCl 4 mg Q4HP PRN IV 08/02/24 20:45 Docusate Sodium 100 mg BIDPRN PRN PO 08/02/24 20:45 Acetaminophen 650 mg Q6HP PRN PO 08/02/24 20:45 Nitroglycerin 0.4 mg Q5MINP PRN SL 08/02/24 22:30 Morphine Sulfate 2 mg Q30M PRN IV 08/02/24 22:30 Laboratory Results Laboratory Tests 08/03/24 05:50 Chemistry Test 08/02/24 14:01 08/03/24 05:50 Albumin 4.2 g/dL (3.2-4.8) 4.2 g/dL (3.2-4.8) Calcium Level 9.5 mg/dL (8.7-10.4) 9.7 mg/dL (8.7-10.4) Magnesium Level 2.0 mg/dL (1.6-2.6) Total Protein 6.5 g/dL (5.7-8.2) 6.3 g/dL (5.7-8.2) Coagulation Test 08/02/24 14:01 Prothrombin Time 12.8 sec (9.3-11.8) H Prothrombin Time INR 1.23 (0.9-1.15) H Activated Partial Thromboplast Time 29.1 SEC (24.5-34.5) D-Dimer, Quantitative 0.68 mg/L FEU (0.0-0.49) H Cardiac Markers Test 08/02/24 14:01 B-Type Natriuretic Peptide 100.06 pg/mL (0-100) LFT Test 08/02/24 14:01 08/03/24 05:50 Alanine Aminotransferase (ALT) 19 U/L (7-40) 19 U/L (7-40) Alkaline Phosphatase 96 U/L (46-116) 91 U/L (46-116) Aspartate Amino Transferase (AST) 22 U/L (13-40) 19 U/L (13-40) Total Bilirubin 0.3 mg/dL (0.2-1.0) 0.3 mg/dL (0.2-1.0) Labs and/or images reviewed: Labs reviewed by me, Image(s) reviewed by me Assessment/Plan Assessment/Plan Acute on chronic hypoxic respiratory failure Acute on chronic diastolic congestive heart failure History of coronary artery disease status post CABG Status post pacemaker Acute COPD exacerbation Hypertension Hyperlipidemia Fibromyalgia Pulmonary fibrosis Type 2 diabetes History of CVA GERD Previous history of smoking, quit 2003 Anemia of chronic disease Use of home oxygen 4 liters/minute Flu test negative COVID test negative Patient has a caregiver at home Time spent 65 minutes Patient is full code Condition guarded Advanced care planning time 20 minutes Plan discussed with: Patient Date of Service: Aug 03, 2024 Billing Provider: JULIANNA SLOAN MD Common Visit Codes: [id number] CARE 30-74 MIN JULIANNA SLOAN MD Aug 03, 2024 12:59
[2024-08-03] MEDS: HYDROcodone-ACET 5/325MG TAB PO PRN (13:13)
--- NOTE | 2024-08-03 19:12 | ECG ---
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
[2024-08-03 21:30] LABS: Urine Bacteria None Seen /hpf (None Seen)
[2024-08-03 21:44] LABS: Urine Blood Negative /uL (Negative); Urine Clarity Clear (Clear); Urine Color Colorless (Yellow); Urine Protein, UAD Negative (Negative); Urine Specific Gravity 1.011 (1.001-1.035); Urine Squamous Epithelial Cell FEW /hpf (<5); Urine Urobilinogen Normal (Negative); Urine WBC <1 /hpf (0 - 5); Urine pH 6.5 (5.0-9.0)
[2024-08-04] VITALS (20 sets, daily range): BP systolic 118–160; BP diastolic 46–77; PULSE 63–100; RESP 14–21; TEMP 97.3–97.9; O2SAT 16–100
[2024-08-04] MEDS: hydrALAZINE HCL 20 MG/ML VL IV PRN (08:38)
--- NOTE | 2024-08-04 11:21 | DVHPN2 ---
Reviewed: Care Plan, H&P, Labs, Medications, Previous Orders, Radiology Changes from previous H/P or p: No Changes Eyes: No Pain, No Vision change, No Conjunctivae inflammation, No Eyelid inflammation, No Other, No Redness ENT: No Ear pain, No Ear discharge, No Nose pain, No Nose discharge; Nose congestion; No Mouth pain, No Mouth swelling, No Throat pain, No Throat swelling, No Other Cardiovascular: No Chest Pain, No Palpitations, No Orthopnea, No Paroxysmal Noc. Dyspnea, No Edema, No Lt Headedness, No Other Respiratory: Cough; No Dry; Shortness of breath, SOB with excertion; No Wheezing, No Hemoptysis, No Pleuritic Pain, No Sputum; Other (SOB at rest) Gastrointestinal: No Nausea, No Vomiting, No Abdominal Pain, No Diarrhea, No Constipation, No Melena, No Hematochezia, No Other Genitourinary: No Dysuria, No Frequency, No Incontinence, No Hematuria, No Retention, No Other Musculoskeletal: No other, No neck pain, No shoulder pain, No arm pain, No back pain, No hand pain, No leg pain, No foot pain Skin: No Rash, No Lesions, No Jaundice, No Bruising, No Other Objective Vitals Vital Signs Date Time Temp Pulse Resp B/P (MAP) Pulse Ox O2 Delivery O2 Flow Rate FiO2 08/04/24 10:46 88 118/46 (70) 08/04/24 09:50 97.5 16 97 97.5 08/04/24 09:37 Nasal Cannula* 3 32 Intake/Output Intake and Output 08/04/24 07:00 Intake Total 940 ml Output Total 900 ml Balance 40 ml Intake Oral 940 ml Output Urine Total 900 ml # Voids 10 # Bowel Movements 1 Medications Current Medications Medications Dose Ordered Sig/Romaine Route Start Time Stop Time Status Last Admin Dose Admin Methylprednisolone Sodium Succinate 40 mg Q8HR IV 08/02/24 22:00 08/04/24 06:21 40 MG Aspirin 81 mg DAILY PO 08/03/24 10:00 08/04/24 07:16 81 MG Atorvastatin Calcium 20 mg HS PO 08/02/24 22:00 08/03/24 20:58 20 MG Albuterol 2.5 mg Q4HPRN PRN NEB 08/02/24 20:45 08/04/24 07:30 2.5 MG Ipratropium [place] 0.5 mg Q4HPRN PRN NEB 08/02/24 20:45 08/04/24 07:30 0.5 MG Hydralazine HCl 10 mg Q6HP PRN IV 08/02/24 20:45 08/04/24 08:38 10 MG Famotidine 10 mg DAILY IV 08/02/24 22:00 08/04/24 07:15 10 MG Diagnostic Test (Pha) 1 strip ACHS 08/02/24 22:00 08/04/24 10:56 1 STRIP Insulin Human Regular ACHS SC 08/02/24 22:00 08/04/24 06:21 2 UNITS Dextrose 50 ml UD PRN IV 08/02/24 20:45 Sodium Chloride 10 ml Q8HR IV 08/02/24 22:00 08/04/24 10:56 10 ML Acetaminophen/ Hydrocodone Bitart 1 tab Q4HP PRN PO 08/02/24 20:45 08/04/24 08:39 1 TAB Ondansetron HCl 4 mg Q4HP PRN IV 08/02/24 20:45 Docusate Sodium 100 mg BIDPRN PRN PO 08/02/24 20:45 Acetaminophen 650 mg Q6HP PRN PO 08/02/24 20:45 Nitroglycerin 0.4 mg Q5MINP PRN SL 08/02/24 22:30 Morphine Sulfate 2 mg Q30M PRN IV 08/02/24 22:30 Aspirin 325 mg DAILY PO 08/04/24 11:30 UNV Laboratory Results Laboratory Tests 08/03/24 05:50 Urinalysis Test 08/02/24 21:25 Urine Color Colorless (Yellow) Urine Clarity Clear (Clear) Urine pH 6.5 (5.0-9.0) Urine Specific [place] 1.011 (1.001-1.035) Urine Protein Negative (Negative) Urine Ketones Negative (Negative) Urine Blood Negative /uL (Negative) Urine Nitrite Negative (Negative) Urine Bilirubin Negative (Negative) Urine Urobilinogen Normal mg/dL (Negative) Urine Leukocyte Esterase Negative /uL (Negative) Urine RBC 1 /hpf (0 - 4) Urine WBC <1 /hpf (0 - 5) Urine Squamous Epithelial Cells Few /hpf (<5) Urine Bacteria None seen /hpf (None Seen) Urine Glucose Normal mg/dL (Normal) Microbiology Microbiology Date/Time Source Procedure Growth Status 08/03/24 02:30 Nose MRSA Screen - Final Complete Labs and/or images reviewed: Labs reviewed by me, Image(s) reviewed by me Assessment/Plan Assessment/Plan Acute on chronic hypoxic respiratory failure Acute on chronic diastolic congestive heart failure History of coronary artery disease status post CABG Status post pacemaker Acute COPD exacerbation Hypertension Hyperlipidemia Fibromyalgia Pulmonary fibrosis Type 2 diabetes History of CVA GERD Previous history of smoking, quit 2003 Anemia of chronic disease Use of home oxygen 4 liters/minute Flu test negative COVID test negative Chest Pain: Patient complained of chest pain EKG negative troponin ordered cardiology consult placed Patient has a caregiver at home Time spent 65 minutes Plan discussed with: Patient My Orders Orders - JULIANNA SLOAN MD Procedure Category Date Status Time Troponin-I Hs LAB 08/04/24 Logged 10:45 Troponin-I Hs LAB 08/04/24 Logged 11:45 Troponin-I Hs LAB 08/04/24 Logged 13:45 * Cardiology Consult CONS 08/04/24 Transmitted 11:16 Aspirin Tablet PHA 08/04/24 Logged 11:30 Lorazepam 2mg/Ml Inj PHA 08/04/24 Logged (Ativan Inj) 11:30 Date of Service: Aug 04, 2024 Billing Provider: JULIANNA SLOAN MD Common Visit Codes: [id number] CARE 30-74 MIN JULIANNA SLOAN MD Aug 04, 2024 11:21
[2024-08-04] MEDS ORDERED: LORazepam 2MG/ML-1ML VIAL IM ONE (11:30)
[2024-08-04] MEDS: ASPirin 325 MG TAB PO SCH (12:10)
[2024-08-04] MEDS: LORazepam 2MG/ML-1ML VIAL IV ONE (12:11)
[2024-08-05] VITALS (10 sets, daily range): BP systolic 101–133; BP diastolic 53–76; PULSE 62–91; RESP 14–32; TEMP 97.5–98.1; O2SAT 94–99
--- NOTE | 2024-08-05 11:33 | DVHPN2 ---
Reviewed: Care Plan, H&P, Labs, Medications, Previous Orders, Radiology Changes from previous H/P or p: No Changes Eyes: No Pain, No Vision change, No Conjunctivae inflammation, No Eyelid inflammation, No Other, No Redness ENT: No Ear pain, No Ear discharge, No Nose pain, No Nose discharge; Nose congestion; No Mouth pain, No Mouth swelling, No Throat pain, No Throat swelling, No Other Cardiovascular: No Chest Pain, No Palpitations, No Orthopnea, No Paroxysmal Noc. Dyspnea, No Edema, No Lt Headedness, No Other Respiratory: Cough; No Dry; Shortness of breath, SOB with excertion; No Wheezing, No Hemoptysis, No Pleuritic Pain, No Sputum; Other (SOB at rest) Gastrointestinal: No Nausea, No Vomiting, No Abdominal Pain, No Diarrhea, No Constipation, No Melena, No Hematochezia, No Other Genitourinary: No Dysuria, No Frequency, No Incontinence, No Hematuria, No Retention, No Other Musculoskeletal: No other, No neck pain, No shoulder pain, No arm pain, No back pain, No hand pain, No leg pain, No foot pain Skin: No Rash, No Lesions, No Jaundice, No Bruising, No Other Objective Vitals Vital Signs Date Time Temp Pulse Resp B/P (MAP) Pulse Ox O2 Delivery O2 Flow Rate FiO2 08/05/24 11:01 62 24 99 08/05/24 10:55 Nasal Cannula* 2 28 08/05/24 09:00 97.6 101/58 (72) 97.6 Intake/Output Intake and Output 08/05/24 07:00 Intake Total 500 ml Balance 500 ml Intake Oral 500 ml # Voids 11 # Bowel Movements 1 Medications Current Medications Medications Dose Ordered Sig/Romaine Route Start Time Stop Time Status Last Admin Dose Admin Methylprednisolone Sodium Succinate 40 mg Q8HR IV 08/02/24 22:00 08/05/24 05:45 40 MG Aspirin 81 mg DAILY PO 08/03/24 10:00 08/04/24 07:16 81 MG Atorvastatin Calcium 20 mg HS PO 08/02/24 22:00 08/04/24 21:10 20 MG Albuterol 2.5 mg Q4HPRN PRN NEB 08/02/24 20:45 08/05/24 10:55 2.5 MG Ipratropium [place] 0.5 mg Q4HPRN PRN NEB 08/02/24 20:45 08/05/24 10:55 0.5 MG Hydralazine HCl 10 mg Q6HP PRN IV 08/02/24 20:45 08/04/24 08:38 10 MG Famotidine 10 mg DAILY IV 08/02/24 22:00 08/05/24 10:08 10 MG Diagnostic Test (Pha) 1 strip ACHS 08/02/24 22:00 08/05/24 11:06 1 STRIP Insulin Human Regular ACHS SC 08/02/24 22:00 08/05/24 11:21 2 UNITS Dextrose 50 ml UD PRN IV 08/02/24 20:45 Sodium Chloride 10 ml Q8HR IV 08/02/24 22:00 08/05/24 05:45 10 ML Acetaminophen/ Hydrocodone Bitart 1 tab Q4HP PRN PO 08/02/24 20:45 08/05/24 10:18 1 TAB Ondansetron HCl 4 mg Q4HP PRN IV 08/02/24 20:45 Docusate Sodium 100 mg BIDPRN PRN PO 08/02/24 20:45 Acetaminophen 650 mg Q6HP PRN PO 08/02/24 20:45 Nitroglycerin 0.4 mg Q5MINP PRN SL 08/02/24 22:30 Morphine Sulfate 2 mg Q30M PRN IV 08/02/24 22:30 Aspirin 325 mg DAILY PO 08/04/24 11:30 08/05/24 10:08 325 MG Laboratory Results Laboratory Tests 08/03/24 05:50 Urinalysis Test 08/02/24 21:25 Urine Color Colorless (Yellow) Urine Clarity Clear (Clear) Urine pH 6.5 (5.0-9.0) Urine Specific [place] 1.011 (1.001-1.035) Urine Protein Negative (Negative) Urine Ketones Negative (Negative) Urine Blood Negative /uL (Negative) Urine Nitrite Negative (Negative) Urine Bilirubin Negative (Negative) Urine Urobilinogen Normal mg/dL (Negative) Urine Leukocyte Esterase Negative /uL (Negative) Urine RBC 1 /hpf (0 - 4) Urine WBC <1 /hpf (0 - 5) Urine Squamous Epithelial Cells Few /hpf (<5) Urine Bacteria None seen /hpf (None Seen) Urine Glucose Normal mg/dL (Normal) Microbiology Microbiology Date/Time Source Procedure Growth Status 08/03/24 02:30 Nose MRSA Screen - Final Complete Labs and/or images reviewed: Labs reviewed by me, Image(s) reviewed by me Assessment/Plan Assessment/Plan Acute on chronic hypoxic respiratory failure Acute on chronic diastolic congestive heart failure History of coronary artery disease status post CABG Status post pacemaker Acute COPD exacerbation Hypertension Hyperlipidemia Fibromyalgia Pulmonary fibrosis Type 2 diabetes History of CVA GERD Previous history of smoking, quit 2003 Anemia of chronic disease Use of home oxygen 4 liters/minute Flu test negative COVID test negative Chest Pain: Patient complained of chest pain EKG negative troponin neg Patient has a caregiver at home Time spent 65 minutes Per patient her pizza hut assistant Dr. Garcia talked to her on the phone and she wants to be discharged now. Plan discussed with: Patient My Orders Orders - JULIANNA SLOAN MD Procedure Category Date Status Time * Cardiology Consult CONS 08/04/24 Transmitted 11:31 Date of Service: Aug 05, 2024 Billing Provider: JULIANNA SLOAN MD Common Visit Codes: [id number] INP/OBS CARE(HIGH) JULIANNA SLOAN MD Aug 05, 2024 11:32
--- NOTE | 2024-08-05 11:38 | DVHDS2 ---
Discharge Summary Date of Admission Aug 02, 2024 at 22:25 Date of Discharge: Aug 05, 2024 Admitting Diagnosis Shortness of breath Wounds: None Labs/Diagnostic Data: Laboratory Results Test 08/05/24 11:04 08/04/24 16:30 08/03/24 05:50 08/02/24 21:25 POC Glucose 149 mg/dl (70-106) Troponin I High Sensitivity 4 ng/L (</=34) White Blood Count 7.4 10^3/uL (4.4-10.8) Red Blood Count 3.39 10^6/uL (4.0-5.20) Hemoglobin 10.6 g/dL (12.2-16.2) Hematocrit 31.2 % (36.0-46.0) Mean Corpuscular Volume 92.1 fL (80.0-100.0) Mean Corpuscular Hemoglobin 31.3 pg (28.0-32.0) Mean Corpuscular Hemoglobin Concent 34.0 g/dL (32.0-36.0) Red Cell Distribution Width 16.1 % (11.8-14.3) Platelet Count 211 10^3/uL (140-450) Mean Platelet Volume 7.4 fL (6.9-10.8) Neutrophils (%) (Auto) 92.4 % (37.0-80.0) Lymphocytes (%) (Auto) 5.8 % (10.0-50.0) Monocytes (%) (Auto) 1.4 % (0.0-12.0) Eosinophils (%) (Auto) 0.1 % (0.0-7.0) Basophils (%) (Auto) 0.3 % (0.0-2.0) Neutrophils # (Auto) 6.8 10 ^3/uL (1.6-8.6) Lymphocytes # (Auto) 0.4 10 ^3/uL (0.4-5.4) Monocytes # (Auto) 0.1 10 ^3/uL (0-1.3) Eosinophils # (Auto) 0 10 ^3/uL (0-0.8) Basophils # (Auto) 0 10 ^3/uL (0-0.2) Nucleated Red Blood Cells 0.0 % Sodium Level 141 mmol/L (136-145) Potassium Level 4.0 mmol/L (3.5-5.1) Chloride Level 105 mmol/L (98-107) Carbon Dioxide Level 26 mmol/L (20-31) Anion Gap 10 (5-15) Blood Urea Nitrogen 16 mg/dL (9-23) Creatinine 0.69 mg/dL (0.550-1.02) Glomerular Filtration Rate Calc 90 mL/min (>90) BUN/Creatinine Ratio 23.2 (10.0-20.0) Serum Glucose 154 mg/dL (74-106) Calcium Level 9.7 mg/dL (8.7-10.4) Total Bilirubin 0.3 mg/dL (0.2-1.0) Aspartate Amino Transferase (AST) 19 U/L (13-40) Alanine Aminotransferase (ALT) 19 U/L (7-40) Alkaline Phosphatase 91 U/L (46-116) Total Protein 6.3 g/dL (5.7-8.2) Albumin 4.2 g/dL (3.2-4.8) Urine Color Colorless (Yellow) Urine Clarity Clear (Clear) Urine pH 6.5 (5.0-9.0) Urine Specific [place] 1.011 (1.001-1.035) Urine Protein Negative (Negative) Urine Ketones Negative (Negative) Urine Blood Negative /uL (Negative) Urine Nitrite Negative (Negative) Urine Bilirubin Negative (Negative) Urine Urobilinogen Normal mg/dL (Negative) Urine Leukocyte Esterase Negative /uL (Negative) Urine RBC 1 /hpf (0 - 4) Urine WBC <1 /hpf (0 - 5) Urine Squamous Epithelial Cells Few /hpf (<5) Urine Bacteria None seen /hpf (None Seen) Urine Glucose Normal mg/dL (Normal) Test 08/02/24 20:14 08/02/24 14:01 Influenza Type A Antigen Negative (Negative) Influenza Type B Antigen Negative (Negative) SARS-CoV-2 Antigen (Rapid) Negative (NEGATIVE) Prothrombin Time 12.8 sec (9.3-11.8) Prothrombin Time INR 1.23 (0.9-1.15) Activated Partial Thromboplast Time 29.1 SEC (24.5-34.5) D-Dimer, Quantitative 0.68 mg/L FEU (0.0-0.49) Magnesium Level 2.0 mg/dL (1.6-2.6) B-Type Natriuretic Peptide 100.06 pg/mL (0-100) Other Laboratory Tests 08/03/24 05:50 Brief Hx & Hospital Course: 74-year-old female with multiple medical pharmacy including congestive heart failure COPD on 4 L of oxygen at home history of coronary artery disease status post CABG and pacemaker hypotension hypercholesterolemia pulmonary fibrosis type 2 diabetes CVA GERD long history of smoking chronic anemia came in for shortness of breaths found to have exacerbation of COPD treated with the med nebs and Solu-Medrol. Patient complained of chest pain troponin negative EKG normal her curtain cutter was consulted . No new orders. At the time of discharge patient is asymptomatic on 3 L of oxygen by nasal cannula no chest pain and stable vital signs and wants to go home. Discharged home. No new meds. Reviewed all her previous home medications COVID test negative Flu test negative Consults/Reason for consult Cardiology Operations or Procedures None Condition at Discharge: Poor Final Diagnosis/Problems List Acute on chronic hypoxic respiratory failure Acute on chronic diastolic congestive heart failure History of coronary artery disease status post CABG Status post pacemaker Acute COPD exacerbation Hypertension Hyperlipidemia Fibromyalgia Pulmonary fibrosis Type 2 diabetes History of CVA GERD Previous history of smoking, quit 2003 Anemia of chronic disease Use of home oxygen 4 liters/minute Flu test negative COVID test negative Chest Pain: Patient complained of chest pain EKG negative troponin neg Discharge Disposition: Home Discharge Instruct/Medications Diet: Cardiac 2g Na,low cholest Activity: Light activity Follow Up/Referral: Follow up with your primary Dr in one week Resume all previous home medications Follow up with your curtain cutter Dr Garcia Medications: None Reviewed all previous home medications 39 (Time taken for discharge summary 39 minutes) Discharge Statement: "Patient was advised to return to the ER or call 911 if any headaches, dizziness, shortness of breath, chest pain, abdominal pain, bleeding, fevers, or worsening of medical condition. Patient was counseled about treatment plan, medications, possible side effects, patientverbalized understanding. All questions were answered to the best of my ability. This discharge took greater then 30 minutes in planning, reviewing documentation, counseling the patient, and discussing with other team members." ASSESSMENT ASSESSMENT Hospital Course Improved Assessment Acute on chronic hypoxic respiratory failure Acute on chronic diastolic congestive heart failure History of coronary artery disease status post CABG Status post pacemaker Acute COPD exacerbation Hypertension Hyperlipidemia Fibromyalgia Pulmonary fibrosis Type 2 diabetes History of CVA GERD Previous history of smoking, quit 2003 Anemia of chronic disease Use of home oxygen 4 liters/minute Flu test negative COVID test negative Chest Pain: Patient complained of chest pain EKG negative troponin neg Date of Service: Aug 05, 2024 Billing Provider: JULIANNA SLOAN MD Common Visit Codes: 23173-BXL/OBS DISCH DAY >30min JULIANNA SLOAN MD Aug 05, 2024 11:38
--- NOTE | 2024-08-07 14:43 | ECG ---
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
== END 2024-08-05 12:59 | disposition home or self-care (01) | DRG 133 ==
LOC: ER 12:29 → EDBD 12:29 → TELE 22:25 → TELE-WESTW 08-03 01:34 → WEST WING 08-04 16:01 → TELE-WESTW 08-05 07:58
PROVIDERS: ADMIT Family Medicine; ATTEND Family Medicine
DX: J96.21 Acute and chronic respiratory failure with hypoxia (principal); I50.33 Acute on chronic diastolic (congestive) heart failure; J44.1 Chronic obstructive pulmonary disease with (acute) exacerbation; D63.8 Anemia in other chronic diseases classified elsewhere; J84.10 Pulmonary fibrosis, unspecified; I11.0 Hypertensive heart disease with heart failure; Z20.822 Contact with and (suspected) exposure to COVID-19; E11.9 Type 2 diabetes mellitus without complications; E78.00 Pure hypercholesterolemia, unspecified; I25.10 Atherosclerotic heart disease of native coronary artery without angina pectoris; K21.9 Gastro-esophageal reflux disease without esophagitis; M79.7 Fibromyalgia; Z88.0 Allergy status to penicillin; Z88.1 Allergy status to other antibiotic agents; Z86.73 Personal history of transient ischemic attack (TIA), and cerebral infarction without residual deficits; Z90.49 Acquired absence of other specified parts of digestive tract; Z95.1 Presence of aortocoronary bypass graft; Z90.710 Acquired absence of both cervix and uterus; Z95.0 Presence of cardiac pacemaker; Z87.891 Personal history of nicotine dependence
CPT/HCPCS: 36415; 71045; 80053; 81001; 82962; 83735; 83880; 84484; 85025; 85379; 85610; 85730; 87081; 87426; 87804; 93005; 94640; G0378; J1815; J3490

== ENCOUNTER 2024-08-28 18:11 | Inpatient (IN) | payer MEDICARE, MEDICAID ==
[~2024-08-28] VITALS: Ht 160 cm; Wt 72.9 kg
[~2024-08-28 18:11] MED LIST changes: -LEVO500T91 PO; -LISI10TA34 PO; -METH4PAK PO
--- NOTE | 2024-08-28 18:45 | ED.PDOC ---
SOB-HPI HPI Comments 74-year-old female who comes in with chief complaint of shortness for breath or with a past one month but has worsened over the past two weeks. The patient states that she has a cough with green phlegm. She states that the symptoms continued to worsen every day. There has been no vomiting, diarrhea or fever. The patient was also complaining of some mild dizziness. 911 was called and the patient was transported to our facility. EN route, the patient received a hand- held nebulizer. When the paramedics arrived, the patient was saturating in the 90s but after the breathing treatment, the patient is at around 98% on room air. Chief Complaint: Shortness of Breath Time Seen by MD: 18:13 Primary Care Provider: SOLE Crespo notes: Nurses Notes, Audioprosthologist Notes, Medications, Allergies Information Source: Patient, Emergency Med Personnel Mode of Arrival: EMS Severity: Moderate Timing: Weeks Duration: Since onset Context: At Rest PE Risk Factors: None History of: COPD, CHF Prehospital treatment: Breathing Tx, Transportation Mechanic, IVF Modifying Factors: Nothing Associated Signs and Symptoms: Wheeze, Cough, Nasal Congestion If cough with SOB: Productive, Green Past Medical History PAST MEDICAL HISTORY: Anemia, Asthma, CHF, COPD, CVA, DM, GERD, High Lipids, HTN, PR Surgical History: CABG, Cholecystectomy, Hysterectomy, Pacemaker, PTCA VALVE INSERTER History: No Pertinent VALVE INSERTER History, Ovarian Cysts Family History Family History: Reviewed,noncontributory to illness, Family hx of DM, Family hx of Cancer, Family hx of heart fran Social History Smoker: Quit Greater Than 1 Year Alcohol: Denies ETOH Use Drugs: Denies Drug Use Lives In: Home Constitutional: denies: chills, diaphoresis, fatigue, fever, malaise, sweats, weakness, others EENTM: denies: blurred vision, double vision, ear bleeding, ear discharge, ear drainage, ear pain, ear ringing, eye pain, eye redness, hearing loss, mouth pain, mouth swelling, nasal discharge, nose bleeding, nose congestion, nose pain, photophobia, tearing, throat pain, throat swelling, voice changes, others Respiratory: reports: cough, shortness of breath, wheezing; denies: hemoptysis, orthopnea, SOB at rest, SOB with excertion, stridor, others Cardiovascular: denies: chest pain, dizzy spells, diaphoresis, Dyspnea on exertion, edema, irregular heart beat, left arm pain, lightheadedness, palpitations, PND, syncope, others Gastrointestinal: denies: abdomen distended, abdominal pain, blood streaked bowels, constipated, diarrhea, dysphagia, difficulty swallowing, hematemesis, melena, nausea, poor appetite, poor fluid intake, rectal bleeding, rectal pain, vomiting, others Genitourinary: denies: abnormal vagina bleeding, burning, dyspareunia, dysuria, flank pain, frequency, hematuria, incontinence, pain, , vagina discharge, urgency, others Neurological: reports: dizziness; denies: fainting, headache, left sided numbn ess, left sided weakness, numbness, paresthesia, pre-existing deficit, right sided numbness, right sided weakness, seizure, speech problems, tingling, tremors, weakness, others Musculoskeletal: denies: back pain, gout, joint pain, joint swelling, muscle pain, muscle stiffness, neck pain, others Integumetry: denies: bruises, change in color, change in hair/nails, dryness, laceration, lesions, lumps, rash, wounds, others Allergic/Immunocompromised: denies: Difficulty Healing, Frequent Infections, Hives, Itching, others Hematologic/Lymphatic: denies: anemia, blood clots, easy bleeding, easy bruising, swollen glands, others Endocrine: denies: excessive hunger, excessive sweating, excessive thirst, excessive urination, flushing, intolerance to cold, intolerance to heat, unexplained weight gain, unexplained weight loss, others Psychiatric: denies: anxiety, bipolar disorder, depression, hopeless, panic disorder, schizophrenia, sleepless, suicidal, others Physical Exam General Appearance: Moderate Distress HEENT: Normal ENT Inspection, Pharynx Normal, TMs Normal Neck: Full Range of Motion, Non-Tender, Normal, Normal Inspection Respiratory: Chest Non-Tender, Decreased Breath Sounds, No Accessory Muscle Use, Respiratory Distress, Wheezing Cardiovascular: No Edema, No JVD, No Murmur, No Gallop, Normal Peripheral Pulses, Regular Rate/Rhythm Breast Exam: Deferred Gastrointestinal: No Organomegaly, Non Tender, No Pulsatile Mass, Normal Bowel Sounds, Soft Genitalia: Deferred Pelvic: Deferred Rectal: Deferred Extremities: No calf tenderness, Normal capillary refill, No pedal edema Musculoskeletal : Apperance: Normal Neurologic: Alert, bridge/structure inspection team leader II-XII nml as Tested, Motor Weakness, Normal Affect, Normal Mood, No Sensory Deficits Cerebellar Function: Normal Reflexes: Normal Skin: Dry, Normal Color, Warm Lymphatic: No Adenopathy Was a procedure done? Was a procedure done?: No Differential Dx Differential Diagnosis: Asthma, Bronchitis, CHF, COPD, Pneumonia X-Ray, Labs, Meds, VS Vital Signs Date Time Temp Pulse Resp B/P (MAP) Pulse Ox O2 Delivery O2 Flow Rate FiO2 08/28/24 19:37 98.1 88 18 106/76 (86) 96 98.1 08/28/24 19:37 88 18 97 Nasal Cannula* 3 32 08/28/24 18:48 83 08/28/24 18:47 83 08/28/24 18:46 98.6 83 12 106/86 (93) 100 98.6 08/28/24 18:22 97.5 89 30 143/83 (103) 99 Lab Test 08/28/24 19:04 Range/Units White Blood Count 7.4 4.4-10.8 10^3/uL Red Blood Count 2.94 L 4.0-5.20 10^6/uL Hemoglobin 9.2 L 12.2-16.2 g/dL Hematocrit 28.0 L 36.0-46.0 % Mean Corpuscular Volume 95.3 80.0-100.0 fL Mean Corpuscular Hemoglobin 31.4 28.0-32.0 pg Mean Corpuscular Hemoglobin Concent 33.0 32.0-36.0 g/dL Red Cell Distribution Width 16.8 H 11.8-14.3 % Platelet Count 246 140-450 10^3/uL Mean Platelet Volume 7.4 6.9-10.8 fL Neutrophils (%) (Auto) 75.8 37.0-80.0 % Lymphocytes (%) (Auto) 8.8 L 10.0-50.0 % Monocytes (%) (Auto) 8.7 0.0-12.0 % Eosinophils (%) (Auto) 6.3 0.0-7.0 % Basophils (%) (Auto) 0.4 0.0-2.0 % Neutrophils # (Auto) 5.6 1.6-8.6 10 ^3/uL Lymphocytes # (Auto) 0.6 0.4-5.4 10 ^3/uL Monocytes # (Auto) 0.6 0-1.3 10 ^3/uL Eosinophils # (Auto) 0.5 0-0.8 10 ^3/uL Basophils # (Auto) 0 0-0.2 10 ^3/uL Nucleated Red Blood Cells 0.1 % Sodium Level 142 136-145 mmol/L Potassium Level 3.8 3.5-5.1 mmol/L Chloride Level 108 H 98-107 mmol/L Carbon Dioxide Level 27 20-31 mmol/L Anion Gap 7 5-15 Blood Urea Nitrogen 11 9-23 mg/dL Creatinine 0.78 0.550-1.02 mg/dL Glomerular Filtration Rate Calc 79 >90 mL/min BUN/Creatinine Ratio 14.1 10.0-20.0 Serum Glucose 95 74-106 mg/dL Lactic Acid Level 1.2 0.4-2.0 mmol/L Calcium Level 9.3 8.7-10.4 mg/dL Troponin I High Sensitivity 5 </=34 ng/L B-Type Natriuretic Peptide 209.56 0-100 pg/mL Current Medications Medications (Trade) Dose Ordered Sig/Romaine Route Start Time Stop Time Status Last Admin Methylprednisolone Sodium Succinate (Solu Medrol) 125 mg ONCE ONCE IV 08/28/24 18:30 08/28/24 18:31 DC 08/28/24 19:10 CXR: FINDINGS: Lines and Tubes: Pacemaker in place unchanged Lungs: Bilateral perihilar peribronchial thickening findings may represent bronchitis. Pleura: No effusion. No pneumothorax. Cardiomediastinal contours: Unremarkable Bones: No acute osseous abnormality. IMPRESSION: 1. Pacemaker in place unchanged 2. Bilateral perihilar peribronchial thickening findings may represent bronchitis. 3. Cardiac size is stable. ATED BY: LEAH CAVAZOS Jr., DO DICTATED DATE/TIME: 08/28/241842 SIGNED BY: LEAH CAVAZOS Jr., SIGNED DATE/TIME: 08/28/241842 CC: At this time the patient is receiving a continuous breathing treatment of albuterol and Atrovent The patient was given Solu-Medrol 125 mg IV push The BNP is 209 The patient's CBC shows anemia with a hemoglobin of 9.2 and hematocrit of 28 The patient was being admitted to the hospitalist at this time Images Reviewed?: Images reviewed and evaluated by me Time of 1ST Reevaluation: 20:41 Reevaluation 1ST: Unchanged Patient Education/Counseling: Diagnosis, Treatment, Prognosis Family Education/Counseling: No Family Present Departure 1 Departure Time of Disposition: 20:38 Impression: Primary Impression: COPD with acute exacerbation Disposition: 09 ADMITTED INPATIENT Admit to: Tele Condition: Fair Critical Care Note Critical Care Time?: Yes (45 min-critical care time only) Stability Stability form required: Yes Unstable for transfer: Telemetry monitoring (Telemetry monitoring required), ED Physician Assesment (Clinical assesment) Heart Score Heart Score: Heart Score Response (Comments) Value History Slightly Suspicious 0 EKG Normal 0 Age <45 0 Risk Factors No known risk factors 0 Troponin Normal limit 0 Total 0 I personally scribed for VEGA GRIFFIN MD ([email or web address]) on 08/28/24 at 20:17. Electronically submitted by Snow Kumar ([email or web address]). I personally scribed for VEGA GRIFFIN MD ([email or web address]) on 08/28/24 at 20:19. Electronically submitted by Snow Kumar ([employer]). I personally scribed for VEGA GRIFFIN MD ([email or web address]) on 08/28/24 at 20:27. Electronically submitted by Snow Kumar ([employer]). VEGA GRIFFIN MD Aug 28, 2024 18:45
--- NOTE | 2024-08-28 18:45 | DVH ---
CHEST RADIOGRAPH Indication: cough Technique: Single frontal view of the chest was obtained Comparison: XY CHEST PORTABLE on DOS: 08/02/24, XY CHEST PORTABLE on DOS: 06/10/24, XY CHEST PORTABLE on DOS: 02/20/24 FINDINGS: Lines and Tubes: Pacemaker in place unchanged Lungs: Bilateral perihilar peribronchial thickening findings may represent bronchitis. Pleura: No effusion. No pneumothorax. Cardiomediastinal contours: Unremarkable Bones: No acute osseous abnormality. IMPRESSION: 1. Pacemaker in place unchanged 2. Bilateral perihilar peribronchial thickening findings may represent bronchitis. 3. Cardiac size is stable.
[2024-08-28 18:48] VITALS: PULSE 83
[2024-08-28] MEDS: methylPREDNISolone SOD SUCC 125 MG/2 ML VL IV ONE (19:10)
[2024-08-28 19:19] LABS: Basophils # (auto) 0 10 ^3/uL (0-0.2); Basophils % (auto) 0.4 % (0.0-2.0); Eosinophils # (auto) 0.5 10 ^3/uL (0-0.8); Eosinophils % (auto) 6.3 % (0.0-7.0); Hemoglobin 9.2 g/dL (12.2-16.2); Lymphocytes # (auto) 0.6 10 ^3/uL (0.4-5.4); Lymphocytes % (auto) 8.8 % (10.0-50.0); Mean Corpuscular Hemoglobin 31.4 pg (28.0-32.0); Mean Corpuscular Volume 95.3 fL (80.0-100.0); Monocytes # (auto) 0.6 10 ^3/uL (0-1.3); Monocytes % (auto) 8.7 % (0.0-12.0); Neutrophils # (auto) 5.6 10 ^3/uL (1.6-8.6); Neutrophils % (auto) 75.8 % (37.0-80.0); Nucleated Red Blood Cells % 0.1 %; Platelet Count (auto) 246 10^3/uL (140-450); Red Blood Cells 2.94 10^6/uL (4.0-5.20); Red Cell Distribution Width 16.8 % (11.8-14.3); White Blood Cell 7.4 10^3/uL (4.4-10.8)
[2024-08-28 19:37] VITALS: PULSE 88; RESP 18; O2SAT 97
[2024-08-28 19:53] LABS: Potassium 3.8 mmol/L (3.5-5.1); Sodium 142 mmol/L (136-145)
[2024-08-28 19:54] LABS: Anion Gap 7 (5-15); Calcium 9.3 mg/dL (8.7-10.4); Carbon Dioxide 27 mmol/L (20-31)
[2024-08-28 19:59] LABS: BUN/Creatinine Ratio 14.1 (10.0-20.0); Blood Urea Nitrogen 11 mg/dL (9-23); Glucose 95 mg/dL (74-106)
[2024-08-28] MEDS ORDERED: ONDANSETRON HCL 4 MG/2 ML VIAL IV PRN (20:00)
[2024-08-28 20:01] LABS: Chloride 108 mmol/L (98-107)
[2024-08-28 20:35] VITALS: BP 106/76; PULSE 73; RESP 19; O2SAT 100
[2024-08-28 20:59] LABS: COVID19 ANTIGEN SOFIA FIA NEGATIVE (NEGATIVE); Rapid Influenza A Negative (Negative); Rapid Influenza B Negative (Negative)
[2024-08-28] MEDS: AZITHROMYCIN 500MG/ 250ML 250 ML IV ONE (21:05)
[2024-08-28] MEDS: ACETAMINOPHEN 325 MG TAB PO PRN (21:14)
[2024-08-28 21:49] LABS: Urine Bacteria None Seen /hpf (None Seen)
[2024-08-28 21:58] LABS: Urine Blood Negative /uL (Negative); Urine Clarity Clear (Clear); Urine Color Yellow (Yellow); Urine Mucus FEW (None Seen); Urine Protein, UAD Negative (Negative); Urine Specific Gravity 1.016 (1.001-1.035); Urine Squamous Epithelial Cell FEW /hpf (<5); Urine Urobilinogen Normal (Negative); Urine WBC < 1 /HPF (0-5); Urine pH 5.5 (5.0-9.0)
[2024-08-28] MEDS: ATORVASTATIN 20 MG TAB PO SCH (22:43)
[2024-08-28] MEDS: TICAGRELOR 90 MG TAB PO SCH (22:43)
[2024-08-28] MEDS: CARVEDILOL 12.5 MG TAB PO SCH (22:43)
[2024-08-28] MEDS: RANOLAZINE ER 500 MG TAB PO SCH (22:44)
[2024-08-29] VITALS (8 sets, daily range): BP systolic 119–127; BP diastolic 59–63; PULSE 77–92; RESP 15–20; TEMP 98–98.1; O2SAT 9–100
--- NOTE | 2024-08-29 04:11 | DVHHP2 ---
History of Present Illness Reason for Visit: Shortness for breath History of Present Illness 74-year-old female with a history of COPD presents for evaluation of shortness for breath. Patient reports a two week history of worsening shortness for breath associated productive cough with green phlegm. Patient reports intermittent chills. Denies nausea or vomiting. No chest pain or palpitations. No other acute complaints reported. Past Medical History Asthma, CHF, COPD, CVA, dyslipidemia, hypertension, mi, diabetes mellitus Past Surgical History Cholecystectomy, hysterectomy, pacemaker, PTCA CABG Family History Noncontributory Smoke: No ALCOHOL: none Drugs: None Lives: with Family Review of Systems Review of Systems Review of systems are currently negative otherwise addressed in HPI. Allergies: Coded Allergies: Doxycycline (Verified Allergy, Severe, 04/05/22) Nitrofurantoin (Verified Allergy, Severe, 04/05/22) Amoxicillin (Verified Allergy, Mild, 09/07/23) 09/07/23: WHITE WORK CLEANERJOHANNA, SPOKE WITH PATIENT. SHE POSSIBLY RECALLS TAKING AMOXICILLIN BEFORE, DENIES ANY RASHES, ITCHINESS, S/SX OF ANAPHYLAXIS. Ciprofloxacin (Verified Allergy, Mild, 09/07/23) 09/07/23: WHITE WORK CLEANERJOHANNA, SPOKE WITH PATIENT. SHE MENTIONED LAST TIME SHE RECIEVED CIPRO INJECTION WAS A WHILE AGO. PATIENT ENDORSED SMALL BUMPS ON THE SKIN BUT PER PATIENT COULD HAVE BEEN DUE TO FAST INJECTION. HAS TAKEN LEVAQUIN PO BEFORE AND DENIES ANY RASH, ITCHINESS, S/SX OF ANAPHYLAXIS. Medications Current Medications Medications Dose Ordered Sig/Romaine Route Start Time Stop Time Status Last Admin Dose Admin Azithromycin 250 ml @ 125 mls/hr DAILY IV 08/29/24 10:00 Aspirin 81 mg DAILY PO 08/29/24 10:00 Atorvastatin Calcium 40 mg HS PO 08/28/24 22:00 08/28/24 22:43 40 MG Carvedilol 12.5 mg Q12HR PO 08/28/24 22:00 08/28/24 22:43 12.5 MG Furosemide 40 mg DAILY PO 08/29/24 10:00 Isosorbide Mononitrate 60 mg DAILY PO 08/29/24 10:00 Ranolazine 500 mg BID PO 08/28/24 22:00 08/28/24 22:44 500 MG Ticagrelor 90 mg BID PO 08/28/24 22:00 08/28/24 22:43 90 MG Albuterol 2.5 mg Q6HPRN PRN NEB 08/28/24 20:00 Ipratropium [place] 0.5 mg Q6HPRN PRN NEB 08/28/24 20:00 Ondansetron HCl 4 mg Q4HP PRN IV 08/28/24 20:00 Enoxaparin Sodium 40 mg DAILY SC 08/29/24 10:00 Acetaminophen 650 mg Q6HP PRN PO 08/28/24 20:00 08/28/24 21:14 650 MG Exam Vital Signs Vital Signs Date Time Temp Pulse Resp B/P (MAP) Pulse Ox O2 Delivery O2 Flow Rate FiO2 08/29/24 04:00 80 18 105/42 (63) 96 08/29/24 00:03 98.0 98.0 08/28/24 20:35 3.0 08/28/24 19:37 Nasal Cannula* 32 Exam Gen: 74-year-old female mild distress Skin: Warm, dry, normal color and texture, no rash. HEENT: Normocephalic atraumatic, mucous membranes moist and pink. Neck: Cervical and supraclavicular nodes normal without enlargement, trachea is midline, thyroid gland is normal without masses. Pulmonary: Diminished breath sounds Cardiac: Regular rate and rhythm. No murmur Abdomen: Soft, nontender, nondistended, bowel sounds present all 4 quadrants, no guarding, no rigidity, no organomegaly. Extremities: No cyanosis, clubbing, no edema Neuro: Cranial nerves II through XII grossly intact, normal affect and speech, no focal motor deficits. Labs/Xrays ORDERING PHYSICIAN: MARLENY CARNEY SALES PROMOTION REPRESENTATIVE PROCEDURE(s): ECIDC - ECHO 2D MODE CARDIAC DOP REASON: Systolic/diastolic heart failure ORDER NUMBER(s): [id number], ACCESSION NUMBER(s): [id number] APPROVED REPORT EXAM: Two-dimensional and M-mode echocardiogram with Doppler and color Doppler. Blood Pressure: 116/36 mmHg INDICATION Systolic/diastolic heart failure Surgery/Intervention Pacemaker: CABG: RISK FACTORS Height: 4'8", Weight: 150 DIMENSIONS LVDd 4.3 (3.8-5.7cm) LA (2D) 4.3 (1.9-4.0cm) Aortic Root 3.2 (2.0- 3.7cm) LVDs 3.2 (2.5-4.0cm) LA (MM) (1.9-4.0cm) Aortic Cusp Exc 1.5 (1.5- 2.0cm) EF (%) 55.0 (55-70%) Rt. Atrium 3.6 (1.9-4.0cm) Asc. Aorta cm IVSd 1.0 (0.7-1.1cm) RV (D) 3.9 (1.8-2.4cm) PWd 0.9 (0.7-1.1cm) Mitral Valve Mitral Mitral Stenosis E wave 0.83m/s MV Mean GR. mmHg A wave 1.02m/s MV Peak GR. mmHg E/A ratio 0.8 2D MVA cm2 DECEL Time 225ms PRESS 1/2 Time ms Aortic Valve Aortic Valve Aortic Stenosis V1 0.91m/s AO Mean GR. 5mmHg V2 1.61m/s AO Peak GR. 10mmHg LVOT Diameter 1.8 (1.8-2.4cm) Doppler SCOTT 1.44cm2 AI P 1/2 Time 403.70ms Pulmonic Valve V2 0.99m/s Tricuspid Valve TR Velocity 2.91m/s RVSP 37mmHg Conclusion Left ventricle: Mild concentric left ventricular hypertrophy was observed. LVEF was 55 to 60%. There was no gross wall motion abnormality. Right ventricle was normal size. There was mild left atrial enlargement. Right atrium was normal size. Aortic valve is trileaflet. There was mild to moderate aortic insufficiency. There was no aortic stenosis. There was mild mitral regurgitation. There was moderate tricuspid regurgitation. There was mild pulmonary valve insufficiency. Pacing wire was seen in right-sided chambers. Right ventricular systolic pressure was assessed around 42 mmHg. There was no pericardial effusion. SIGNED BY: AJAY SMALLWOOD MD SIGNED DATE/TIME: 12/26/23 9326 CC: ORDERING PHYSICIAN: VEGA GRIFFIN MD PROCEDURE(s): CXRP - CHEST PORTABLE REASON: cough ORDER NUMBER(s): [id number], ACCESSION NUMBER(s): [id number] CHEST RADIOGRAPH Indication: cough Technique: Single frontal view of the chest was obtained Comparison: XY CHEST PORTABLE on DOS: 08/02/24, XY CHEST PORTABLE on DOS: 06/10/24, XY CHEST PORTABLE on DOS: 02/20/24 FINDINGS: Lines and Tubes: Pacemaker in place unchanged Lungs: Bilateral perihilar peribronchial thickening findings may represent bronchitis. Pleura: No effusion. No pneumothorax. Cardiomediastinal contours: Unremarkable Bones: No acute osseous abnormality. IMPRESSION: 1. Pacemaker in place unchanged 2. Bilateral perihilar peribronchial thickening findings may represent bronchitis. 3. Cardiac size is stable. 18:4 Labs Test 08/28/24 21:48 08/28/24 20:15 08/28/24 19:04 Range/Units Urine Color Yellow Yellow Urine Clarity Clear Clear Urine pH 5.5 5.0-9.0 Urine Specific [place] 1.016 1.001-1.035 Urine Protein Negative Negative Urine Ketones Negative Negative Urine Blood Negative Negative /uL Urine Nitrite Negative Negative Urine Bilirubin Negative Negative Urine Urobilinogen Normal Negative mg/dL Urine Leukocyte Esterase Negative Negative /uL Urine RBC <1 0 - 4 /hpf Urine Microscopic WBC < 1 0-5 /HPF Urine Squamous Epithelial Cells Few <5 /hpf Urine Bacteria None seen None Seen /hpf Urine Mucus Few None Seen Urine Glucose Normal Normal mg/dL Influenza Type A Antigen Negative Negative Influenza Type B Antigen Negative Negative SARS-CoV-2 Antigen (Rapid) Negative NEGATIVE White Blood Count 7.4 4.4-10.8 10^3/uL Red Blood Count 2.94 L 4.0-5.20 10^6/uL Hemoglobin 9.2 L 12.2-16.2 g/dL Hematocrit 28.0 L 36.0-46.0 % Mean Corpuscular Volume 95.3 80.0-100.0 fL Mean Corpuscular Hemoglobin 31.4 28.0-32.0 pg Mean Corpuscular Hemoglobin Concent 33.0 32.0-36.0 g/dL Red Cell Distribution Width 16.8 H 11.8-14.3 % Platelet Count 246 140-450 10^3/uL Mean Platelet Volume 7.4 6.9-10.8 fL Neutrophils (%) (Auto) 75.8 37.0-80.0 % Lymphocytes (%) (Auto) 8.8 L 10.0-50.0 % Monocytes (%) (Auto) 8.7 0.0-12.0 % Eosinophils (%) (Auto) 6.3 0.0-7.0 % Basophils (%) (Auto) 0.4 0.0-2.0 % Neutrophils # (Auto) 5.6 1.6-8.6 10 ^3/uL Lymphocytes # (Auto) 0.6 0.4-5.4 10 ^3/uL Monocytes # (Auto) 0.6 0-1.3 10 ^3/uL Eosinophils # (Auto) 0.5 0-0.8 10 ^3/uL Basophils # (Auto) 0 0-0.2 10 ^3/uL Nucleated Red Blood Cells 0.1 % Sodium Level 142 136-145 mmol/L Potassium Level 3.8 3.5-5.1 mmol/L Chloride Level 108 H 98-107 mmol/L Carbon Dioxide Level 27 20-31 mmol/L Anion Gap 7 5-15 Blood Urea Nitrogen 11 9-23 mg/dL Creatinine 0.78 0.550-1.02 mg/dL Glomerular Filtration Rate Calc 79 >90 mL/min BUN/Creatinine Ratio 14.1 10.0-20.0 Serum Glucose 95 74-106 mg/dL Lactic Acid Level 1.2 0.4-2.0 mmol/L Calcium Level 9.3 8.7-10.4 mg/dL Troponin I High Sensitivity 5 </=34 ng/L B-Type Natriuretic Peptide 209.56 0-100 pg/mL Assessment/Plan Assessment/Plan Assessment Acute on chronic respiratory distress COPD Acute bronchitis Hypertension Plan Admit the patient to [facility] to hospitalist Resume home medications Azithromycin Continue treatment per orders. Plan discussed with: Patient My Orders Orders - CALE KEARNEY AGACNP Procedure Category Date Status Time Admit ADMIT 08/28/24 Transmitted 19:57 Azithromycin 500mg/ PHA 08/29/24 In Process 250ml (Zithromax 50 10:00 Aspirin Tablet PHA 08/29/24 In Process 10:00 Atorvastatin (Lipitor) PHA 08/28/24 In Process 22:00 Carvedilol Tablet PHA 08/28/24 In Process (Coreg Tablet) 22:00 Furosemide Tablet PHA 08/29/24 In Process (Lasix Tablet) 10:00 Isosorbide PHA 08/29/24 In Process Mononitrate Tablet 10:00 Ranolazine (Ranexa Er) PHA 08/28/24 In Process 22:00 Ticagrelor (Brilinta) PHA 08/28/24 In Process 22:00 Albuterol Medneb PHA 08/28/24 In Process (Ventolin Medneb) 20:00 Ipratropium Medneb PHA 08/28/24 In Process (Atrovent Medneb) 20:00 Basic Metabolic Panel LAB 08/29/24 Logged 04:00 Ondansetron Hcl PHA 08/28/24 In Process (Zofran) 20:00 Enoxaparin Sodium PHA 08/29/24 In Process (Lovenox) 10:00 Cardiac DIET 08/29/24 Transmitted Diet-2gna,Lofat,Lochol Breakfast Condition: Stable LESLIE 08/28/24 In Process 20:00 Acetaminophen Tablet PHA 08/28/24 In Process (Tylenol Tablet) 20:00 Bedrest With Bathroom LESLIE 08/28/24 In Process Privileg 20:00 Pharmacy LESLIE 08/28/24 In Process Clarification: 20:17 Date of Service: Aug 28, 2024 Billing Provider: CALE KEARNEY Common Visit Codes: [id number] INP/OBS CARE (HIGH) CALE KEARNEY Aug 29, 2024 04:11
[2024-08-29 07:23] LABS: Anion Gap 9 (5-15); Carbon Dioxide 24 mmol/L (20-31); Potassium 4.1 mmol/L (3.5-5.1); Sodium 141 mmol/L (136-145)
[2024-08-29 07:24] LABS: Calcium 9.2 mg/dL (8.7-10.4)
[2024-08-29 07:29] LABS: BUN/Creatinine Ratio 17.5 (10.0-20.0); Blood Urea Nitrogen 11 mg/dL (9-23); Chloride 108 mmol/L (98-107); Glucose 163 mg/dL (74-106)
[2024-08-29] MEDS: ASPirin 81 mg TAB PO SCH (10:31)
[2024-08-29] MEDS: FUROSEMIDE 40 MG TAB PO SCH (10:37)
[2024-08-29] MEDS: ISOSORBIDE MONONITRATE ER 60 MG TAB PO SCH (10:37)
[2024-08-29] MEDS: ENOXAPARIN SOD 40 MG/0.4 ML SYRINGE SC SCH (10:38)
[2024-08-29] MEDS: AZITHROMYCIN 500MG/ 250ML 250 ML IV SCH (10:39)
[2024-08-29] MEDS: ALBUTEROL SULF 2.5 MG/0.5ML(0.5%) NEB SOLN NEB PRN (11:18)
[2024-08-29] MEDS: IPRATROPIUM BROM 0.5 MG/2.5ML INH SOL NEB PRN (11:18)
[2024-08-29] MEDS: MORPHINE SULFATE INJ 2 MG/ml SYRG IV PRN (11:23)
--- NOTE | 2024-08-29 17:17 | DVHPN2 ---
Subjective Continues to report having shortness of breath. Reviewed: Care Plan, H&P Changes from previous H/P or p: No Changes General: Per HPI Objective Vitals Vital Signs Date Time Temp Pulse Resp B/P (MAP) Pulse Ox O2 Delivery O2 Flow Rate FiO2 08/29/24 16:49 98.1 80 18 127/63 (84) 98 98.1 08/29/24 13:00 Nasal Cannula* 3 32 Intake/Output Intake and Output 08/29/24 07:00 Intake Total 250 ml Balance 250 ml Intake IV Total 250 ml General Appearance: Alert, Oriented X3, Cooperative, mild distress HEENT: Atraumatic, PERRLA Lungs: Clear to auscultation, Normal air movement Cardiovascular: Normal S1, Normal S2 Abdomen: Normal bowel sounds Genitourinary: No Apparent Abnormalities Musculoskeletal: Normal sensory function, Normal motor function Neuro: Normal gait, Normal speech Psych/Mental Status: Mental status NL, Mood NL Medications Current Medications Medications Dose Ordered Sig/Romaine Route Start Time Stop Time Status Last Admin Dose Admin Azithromycin 250 ml @ 125 mls/hr DAILY IV 08/29/24 10:00 08/29/24 10:39 125 MLS/HR Aspirin 81 mg DAILY PO 08/29/24 10:00 08/29/24 10:31 81 MG Atorvastatin Calcium 40 mg HS PO 08/28/24 22:00 08/28/24 22:43 40 MG Carvedilol 12.5 mg Q12HR PO 08/28/24 22:00 08/29/24 10:37 12.5 MG Furosemide 40 mg DAILY PO 08/29/24 10:00 08/29/24 10:37 40 MG Isosorbide Mononitrate 60 mg DAILY PO 08/29/24 10:00 08/29/24 10:37 60 MG Ranolazine 500 mg BID PO 08/28/24 22:00 08/29/24 10:38 500 MG Ticagrelor 90 mg BID PO 08/28/24 22:00 08/29/24 10:00 90 MG Albuterol 2.5 mg Q6HPRN PRN NEB 08/28/24 20:00 08/29/24 11:18 2.5 MG Ipratropium [place] 0.5 mg Q6HPRN PRN NEB 08/28/24 20:00 08/29/24 11:18 0.5 MG Ondansetron HCl 4 mg Q4HP PRN IV 08/28/24 20:00 Enoxaparin Sodium 40 mg DAILY SC 08/29/24 10:00 08/29/24 10:38 40 MG Acetaminophen 650 mg Q6HP PRN PO 08/28/24 20:00 08/28/24 21:14 650 MG Morphine Sulfate 1 mg Q4HPRN PRN IV 08/29/24 10:30 08/29/24 11:23 1 MG Acetaminophen/ Hydrocodone Bitart 1 tab Q6HPRN PRN PO 08/29/24 10:30 Laboratory Results Laboratory Tests 08/28/24 19:04 08/29/24 06:45 Chemistry Test 08/28/24 19:04 08/29/24 06:45 Calcium Level 9.3 mg/dL (8.7-10.4) 9.2 mg/dL (8.7-10.4) Cardiac Markers Test 08/28/24 19:04 B-Type Natriuretic Peptide 209.56 pg/mL (0-100) Urinalysis Test 08/28/24 21:48 Urine Color Yellow (Yellow) Urine Clarity Clear (Clear) Urine pH 5.5 (5.0-9.0) Urine Specific [place] 1.016 (1.001-1.035) Urine Protein Negative (Negative) Urine Ketones Negative (Negative) Urine Blood Negative /uL (Negative) Urine Nitrite Negative (Negative) Urine Bilirubin Negative (Negative) Urine Urobilinogen Normal mg/dL (Negative) Urine Leukocyte Esterase Negative /uL (Negative) Urine RBC <1 /hpf (0 - 4) Urine Microscopic WBC < 1 /HPF (0-5) Urine Squamous Epithelial Cells Few /hpf (<5) Urine Bacteria None seen /hpf (None Seen) Urine Mucus Few (None Seen) Urine Glucose Normal mg/dL (Normal) Labs and/or images reviewed: Labs reviewed by me, Image(s) reviewed by me Assessment/Plan Assessment/Plan Impression: -acute on chronic hypoxic respiratory failure -bronchial pneumonia -COPD with exacerbation -failure of oral antibiotic therapy with azithromycin -history of PPI -tricuspid valve regurgitation -iron-deficiency anemia -primary hypertension Plan: -continue O2 supplementation to keep saturation greater than 92% -stop azithromycin given failure of oral antibiotic, changed to Rocephin -prednisone 40 mg p.o. daily -Pulmicort -bronchodilators -continue beta-nel -iron supplementation -continue antiplatelet therapy Total time spent with patient discussing and formulating plan of care: 35 minutes. This medical document was created using an electronic medical record system with [employer] dictation system. Although this document has been carefully reviewed, there may still be some phonetic and typographical errors. These areas are purely typographical due to imperfections of the software programs, and do not reflect any compromise in the patient's medical care. Plan discussed with: Patient, Other (RN) My Orders Orders - POOL DILLARD NP Procedure Category Date Status Time Morphine Sulfate PHA 08/29/24 In Process Injection 10:30 Hydrocodone-Acet PHA 08/29/24 In Process 5/325mg Tab ([place] 10:30 Date of Service: Aug 29, 2024 Billing Provider: POOL DILLARD NP Common Visit Codes: [id number] INP/OBS CARE(HIGH) POOL DILLARD NP Aug 29, 2024 17:17
[2024-08-29] MEDS: FERROUS SULFATE 325mg EC TAB PO SCH (18:42)
[2024-08-29] MEDS: cefTRIAXone 1GM/50ML D5W 50 ML IV SCH (18:43)
[2024-08-29] MEDS: HYDROcodone-ACET 5/325MG TAB PO PRN (21:18)
[2024-08-30] VITALS (12 sets, daily range): BP systolic 110–133; BP diastolic 45–65; PULSE 66–81; RESP 16–20; TEMP 97.9–98.6; O2SAT 98–100
--- NOTE | 2024-08-30 07:01 | DVHINCON2 ---
Date of service: Aug 30, 2024 History of Present Illness HPI Patient is a 74-year-old female who presented to the hospital with cough, productive and chills. She has been experiencing it for around a month which worsened in the past two weeks. She has received Zithromax as outpatient with no help. Did have greenish productive cough. Is admitted with COPD exacerbation/pneumonia. Cardiology is involved for cardiac aspect of care. Patient is known to our practice from outside. She denies chest discomfort. Cardiac wilcox, she is known to have coronary artery disease, status post CABG and PCI (few years back). She does have pulmonary hypertension and pacemaker. She is known to have closed bypass grafts. In July, she was in the office and the pacemaker was interrogated. Home Meds Active Scripts Ondansetron Odt 4MG Tab (ZOFRAN PO) 4 Mg Tb, 4 MG PO Q8HR PRN, #14 TAB ODT TAB-DISSOLVE IN MOUTH, THEN SWALLOW Prov:VITO SCHUSTER MD 07/08/23 Reported Medications Ferrous Sulfate (Ferosul) 325 Mg Tab, 1 TAB PO BID for 30 Days, #60 06/12/24 Dicyclomine Hcl (BENTYL CAPSULE) 10 Mg Cp, 1 CAP PO QID PRN for 5 Days, #20 06/12/24 Isosorbide Mononitrate (Isosorbide Mononitrate Er) 60 Mg Tab, 1 TAB PO DAILY for 90 Days, #90 06/12/24 Oglomvsjjgv-Mjsoprpqegfb-Vftog (Trelegy Ellipta 200-62.5-25 Mcg/INH) 1 Aer Aer, 1 PUFF IN DAILY for 30 Days, #60 06/12/24 Carvedilol (Carvedilol) 25 Mg Tab, 1 TAB PO TID for 30 Days, #90 02/22/24 Albuterol Sulfate (Albuterol Sulfate Hfa) 108 Mcg/Act Aer, 1 PUFF INH QID 12/26/23 Tramadol Hcl (Tramadol Hcl) 50 Mg Tab, 50 MG PO BID PRN for PAIN SCALE 1 THRU 6, MG 10/11/23 Mgitfenlfok-Qnanwehvqfk-Gfh C- (Glucosamine Chondroitin) Tab, 1500 MG PO BID, TAB 10/11/23 Cholecalciferol (VITAMIN D3) 2,000 Unit Tab, 50 MCG PO DAILY, #30 TAB 5 Refills 10/11/23 Zinc Sulfate (Zinc Sulfate) 220 Mg Cap, 50 MG PO DAILY for 30 Days, MG 10/11/23 Ascorbic Acid (VITAMIN C TABLET) 500 Mg Tb, 2000 MG PO DAILY, #30 TAB 3 Refills 10/11/23 Nitroglycerin (Nitroglycerin Lingual) 0.4 Mg/[place] Spr, 0.4 MG TL BID PRN for FOR CHEST PAIN, SPR 10/11/23 Magnesium Oxide (MAGNESIUM OXIDE) 400 Mg Tab, 1 TAB PO DAILY for 30 Days, #30 10/11/23 Evolocumab (Repatha) 140 Mg/Ml Inj, 1 ML SC Q2WEEK for 56 Days, #14 INJECT 1 ML SUBCUTANEOUSLY EVERY 2 WEEKS. 09/07/23 Aspirin (Aspir-81) 81 Mg Tab, 1 TAB PO DAILY, #30 TAB 5 Refills 07/01/22 Potassium Chloride (K-Tabs) 10 Meq Tab, 1 TAB.CHEW PO DAILY 07/01/22 Pantoprazole Sodium Sesquihydr (Pantoprazole Sodium) 40 Mg Tab, 1 TAB PO DAILY for 30 Days, #30 07/01/22 Ranolazine (Ranolazine ER) 500 Mg Tab, 1 TAB PO BID for 30 Days, #60 07/01/22 Furosemide (Furosemide) 40 Mg Tab, 1 TAB PO DAILY for 90 Days, #90 07/01/22 Atorvastatin Calcium (ATORVASTATIN CALCIUM) 40 Mg Tab, 1 TAB PO HS for 30 Days, #30 07/01/22 Montelukast Sodium (MONTELUKAST SODIUM) 10 Mg Tab, 1 TAB PO DAILY for 30 Days, #30 07/01/22 Ticagrelor Base (BRILINTA) 90 Mg Tab, 1 TAB PO BID for 30 Days, #60 07/01/22 Past Medical History Others Past medical history includes diabetes mellitus, hyperlipidemia, hypertension, diastolic heart failure, peripheral artery disease, GERD, anxiety, anemia, asthma, coronary artery disease, status post CABG and PCI, status post pacemaker implantation ([employer]tr[employer]), status post old CVA, COPD on home oxygen, fibromyalgia, pulmonary hypertension, history of poor functional status, history of GI bleeding, pulmonary fibrosis, hiatal hernia, ex-smoker, status post gold cholecystectomy/hysterectomy. Is known to have closed grafts for CABG. Has had high risk PCI/left main in [facility] (few years back). Does have history of abnormal nuclear stress test and the plan has been to manage her medically. She is kept on Aspirin and Brilinta. She is ex-smoker. Patient Family History: Alcoholism Cardiovascular disease G8 FATHER FHx: lung cancer Hypertension G8 FATHER Secondary malignant neoplasm of lung G8 MOTHER Smoker: Quit Alocohol: None Drugs: None Lives with: With family Review of Systems Constitutional: Chills, Fever Pulmonary/Respiratory: Dyspnea, Cough Cardiovascular: No symptom reported All Other Systems Fourteen point review of system was performed. Relevant findings as per above and as per HPI. Otherwise negative. H&P Exam Vital Signs Vital Signs Date Time Temp Pulse Resp B/P (MAP) Pulse Ox O2 Delivery O2 Flow Rate FiO2 08/30/24 05:00 98.6 70 18 110/45 (66) 99 98.6 08/29/24 23:35 Nasal Cannula* 3 32 General Appeara: Well developed Head Exam: Normal inspection Neck Exam: Normal inspection Eye Exam: bilateral eye PERRL Mouth: Normal Inspection Pulmonary/Respiratory: Rhonci Cardiovascular/Chest: Regular rate, Systolic murmur Peripheral Pulses: 2+ carotid (R), 2+ carotid (L), 2+ femoral (R), 2+ femoral (L), 2+ dorsalis pedis (R), 2+ dorsalis pedis (L), 2+ Radial (R), 2+ Radial (L) Abdominal Exam: Normal bowel sounds, Soft, No tenderness Neuro/Mental St: Alert, Oriented Appearance: Appropriate appearance Eye contact/ Speech: Cooperative Labs/Xrays Labs Test 08/29/24 06:45 08/28/24 21:48 08/28/24 20:15 08/28/24 19:04 Range/Units Sodium Level 141 136-145 mmol/L Potassium Level 4.1 3.5-5.1 mmol/L Chloride Level 108 H 98-107 mmol/L Carbon Dioxide Level 24 20-31 mmol/L Anion Gap 9 5-15 Blood Urea Nitrogen 11 9-23 mg/dL Creatinine 0.63 0.550-1.02 mg/dL Glomerular Filtration Rate Calc 92 >90 mL/min BUN/Creatinine Ratio 17.5 10.0-20.0 Serum Glucose 163 H 74-106 mg/dL Calcium Level 9.2 8.7-10.4 mg/dL Urine Color Yellow Yellow Urine Clarity Clear Clear Urine pH 5.5 5.0-9.0 Urine Specific [place] 1.016 1.001-1.035 Urine Protein Negative Negative Urine Ketones Negative Negative Urine Blood Negative Negative /uL Urine Nitrite Negative Negative Urine Bilirubin Negative Negative Urine Urobilinogen Normal Negative mg/dL Urine Leukocyte Esterase Negative Negative /uL Urine RBC <1 0 - 4 /hpf Urine Microscopic WBC < 1 0-5 /HPF Urine Squamous Epithelial Cells Few <5 /hpf Urine Bacteria None seen None Seen /hpf Urine Mucus Few None Seen Urine Glucose Normal Normal mg/dL Influenza Type A Antigen Negative Negative Influenza Type B Antigen Negative Negative SARS-CoV-2 Antigen (Rapid) Negative NEGATIVE White Blood Count 7.4 4.4-10.8 10^3/uL Red Blood Count 2.94 L 4.0-5.20 10^6/uL Hemoglobin 9.2 L 12.2-16.2 g/dL Hematocrit 28.0 L 36.0-46.0 % Mean Corpuscular Volume 95.3 80.0-100.0 fL Mean Corpuscular Hemoglobin 31.4 28.0-32.0 pg Mean Corpuscular Hemoglobin Concent 33.0 32.0-36.0 g/dL Red Cell Distribution Width 16.8 H 11.8-14.3 % Platelet Count 246 140-450 10^3/uL Mean Platelet Volume 7.4 6.9-10.8 fL Neutrophils (%) (Auto) 75.8 37.0-80.0 % Lymphocytes (%) (Auto) 8.8 L 10.0-50.0 % Monocytes (%) (Auto) 8.7 0.0-12.0 % Eosinophils (%) (Auto) 6.3 0.0-7.0 % Basophils (%) (Auto) 0.4 0.0-2.0 % Neutrophils # (Auto) 5.6 1.6-8.6 10 ^3/uL Lymphocytes # (Auto) 0.6 0.4-5.4 10 ^3/uL Monocytes # (Auto) 0.6 0-1.3 10 ^3/uL Eosinophils # (Auto) 0.5 0-0.8 10 ^3/uL Basophils # (Auto) 0 0-0.2 10 ^3/uL Nucleated Red Blood Cells 0.1 % Lactic Acid Level 1.2 0.4-2.0 mmol/L Troponin I High Sensitivity 5 </=34 ng/L B-Type Natriuretic Peptide 209.56 0-100 pg/mL Microbiology Date/Time Source Procedure Growth Status 08/28/24 19:04 Blood Blood Culture - Preliminary NO GROWTH AFTER 24 HOURS OF INCUBATION. Resulted Assessment/Plan Plan Patient is a 74-year-old female who presented to the hospital with cough, productive and chills. She has been experiencing it for around a month which worsened in the past two weeks. She has received Zithromax as outpatient with no help. Did have greenish productive cough. Is admitted with COPD exacerbation/pneumonia. Cardiology is involved for cardiac aspect of care. Patient is known to our practice from outside. She denies chest discomfort. Cardiac wilcox, she is known to have coronary artery disease, status post CABG and PCI (few years back). She does have pulmonary hypertension and pacemaker. She is known to have closed bypass grafts. In July, she was in the office and the pacemaker was interrogated. Lying comfortably flat in bed. No JVD. pink mucosa. Lungs reveal scattered rhonchi. Cardiac: Regular, no thrills/murmur. Abdomen is soft. No hepatomegaly. Bowel sounds positive. Lower extremities do not reveal edema. Dorsalis pedis is 2+ bilateral Past medical history includes diabetes mellitus, hyperlipidemia, hypertension, diastolic heart failure, peripheral artery disease, GERD, anxiety, anemia, asthma, coronary artery disease, status post CABG and PCI, status post pacemaker implantation ([employer]), status post old CVA, COPD on home oxygen, fibro myalgia, pulmonary hypertension, history of poor functional status, history of GI bleeding, pulmonary fibrosis, hiatal hernia, ex-smoker, status post gold cholecystectomy/hysterectomy. Is known to have closed grafts for CABG. Has had high risk PCI/left main in [facility] (few years back). Does have history of abnormal nuclear stress test and the plan has been to manage her medically. She is kept on Aspirin and Brilinta. She is ex-smoker. Echocardiogram of January 09, 2023 revealed LVEF of 55 to 60%, mild concentric left ventricular hypertrophy, no wall motion abnormality, mild biatrial enlargement, pacing wire in right-sided chambers, mild to moderate aortic insufficiency, mild mitral regurgitation, mild to moderate tricuspid regurgitation and right ve ntricular systolic pressure of 35 mmHg Echocardiogram of March 07, 2023 had revealed ejection fraction of 55 to 60%, mild concentric left ventricular hypertrophy, mild AI/MR/PI, mild biatrial enlargement, pacemaker wire in the right-sided chambers and right ventricular systolic pressure of 34 mmHg Echocardiogram of September 06, 2023 revealed ejection fraction of 55% and pacemaker in right-sided chambers Echocardiogram of December 26, 2023 had reported ejection fraction of 55-60%, no wall motion abnormality, [id number] aortic insufficiency, mild MR, moderate TR and right ventricular systolic pressure 42 mm Hg Hemoglobin: 9.2 Creatinine: 0.78 - 0.63 Potassium: 3.8 - 4.1 Troponin (sinus rhythm): 5 BNP: 209.56 Chest x-ray revealed: IMPRESSION: 1. Pacemaker in place unchanged 2. Bilateral perihilar peribronchial thickening findings may represent bronchitis. 3. Cardiac size is stable. Telemetry reveals sinus rhythm and occasions of paced rhythm Patient is a 74-year-old female who presented with shortness of breath and productive cough. Presentation is in favor of pneumonia/COPD exacerbation. Acute coronary syndrome is not considered. Patient does have pacemaker which has been interrogated recently. High sensitive troponin has been negative. EKG has been nonrevealing. Cardiac etiology for presentation is less likely. COPD exacerbation Pneumonia Pulmonary fibrosis Pulmonary hypertension Chronic diastolic heart failure Status post pacemaker Cardiac suggestions for management: Manage on telemetry Follow-up electrolytes and kidney function and correct abnormalities, keep potassium above 4 magnesium above 2 Continuation of Statin/Ranexa/Imdur suggested ASA: 81 mg daily Evaluation and management of pneumonia/COPD exacerbation as per primary team/Pulmonary Request for echocardiogram Thank you for consultation Further evaluation and management depends on the above and clinical course A total of 75 minutes was spent reviewing the patient record, examining the patient, making a diagnostic and therapeutic plan, discussing this plan with medical personnel, following up on diagnostic studies and following the patient for clinical stability excluding any and all procedures. At least 50% of this time was spent in direct, [id number] contact. Thank you for allowing me to participate in this patient's care. Further recommendations will depend on patient's clinical course. Please do not hesitate to contact me if you have any questions or concerns. This medical document was created using electronic medical record system with [employer] dictation system. Although this document has been carefully reviewed, there may still be some phonetic and typographical errors. These areas are purely typographical due to the imperfection of the software programs, and do not reflect any compromise in the patient's medical care. Plan discussed with: Patient, Other (nurse) AJAY SMALLWOOD MD Aug 30, 2024 07:00
[2024-08-30] MEDS: predniSONE 20 MG TAB PO SCH (09:42)
--- NOTE | 2024-08-30 15:10 | DVHPN2 ---
Subjective Continues to report having shortness of breath. Reviewed: Care Plan, H&P Changes from previous H/P or p: No Changes General: Per HPI Objective Vitals Vital Signs Date Time Temp Pulse Resp B/P (MAP) Pulse Ox O2 Delivery O2 Flow Rate FiO2 08/30/24 13:53 67 16 119/57 08/30/24 13:00 97.9 99 97.9 08/30/24 10:00 Nasal Cannula 3.0 08/30/24 10:00 32 Intake/Output Intake and Output 08/30/24 07:00 Intake Total 700 ml Output Total 300 ml Balance 400 ml Intake Oral 400 ml IV Total 300 ml Output Urine Total 300 ml General Appearance: Alert, Oriented X3, Cooperative, mild distress HEENT: Atraumatic, PERRLA Lungs: Clear to auscultation, Normal air movement Cardiovascular: Normal S1, Normal S2 Abdomen: Normal bowel sounds Genitourinary: No Apparent Abnormalities Musculoskeletal: Normal sensory function, Normal motor function Neuro: Normal gait, Normal speech Skin: Dry, Intact Psych/Mental Status: Mental status NL, Mood NL Medications Current Medications Medications Dose Ordered Sig/Romaine Route Start Time Stop Time Status Last Admin Dose Admin Aspirin 81 mg DAILY PO 08/29/24 10:00 08/30/24 09:41 81 MG Atorvastatin Calcium 40 mg HS PO 08/28/24 22:00 08/29/24 21:19 40 MG Carvedilol 12.5 mg Q12HR PO 08/28/24 22:00 08/30/24 09:42 12.5 MG Furosemide 40 mg DAILY PO 08/29/24 10:00 08/30/24 09:43 40 MG Isosorbide Mononitrate 60 mg DAILY PO 08/29/24 10:00 08/30/24 09:42 60 MG Ranolazine 500 mg BID PO 08/28/24 22:00 08/30/24 09:41 500 MG Ticagrelor 90 mg BID PO 08/28/24 22:00 08/30/24 09:43 90 MG Albuterol 2.5 mg Q6HPRN PRN NEB 08/28/24 20:00 08/30/24 07:52 2.5 MG Ipratropium [place] 0.5 mg Q6HPRN PRN NEB 08/28/24 20:00 08/30/24 07:52 0.5 MG Ondansetron HCl 4 mg Q4HP PRN IV 08/28/24 20:00 Enoxaparin Sodium 40 mg DAILY SC 08/29/24 10:00 08/30/24 09:45 40 MG Acetaminophen 650 mg Q6HP PRN PO 08/28/24 20:00 08/28/24 21:14 650 MG Morphine Sulfate 1 mg Q4HPRN PRN IV 08/29/24 10:30 08/30/24 13:53 1 MG Acetaminophen/ Hydrocodone Bitart 1 tab Q6HPRN PRN PO 08/29/24 10:30 08/30/24 09:41 1 TAB Ceftriaxone Sodium 50 ml @ 100 mls/hr DAILY@09 IV 08/29/24 17:15 08/30/24 09:43 100 MLS/HR Ferrous Sulfate 325 mg BIDWM PO 08/29/24 18:00 08/30/24 09:43 325 MG Prednisone 40 mg DAILY PO 08/30/24 10:00 08/30/24 09:42 40 MG Laboratory Results Laboratory Tests 08/28/24 19:04 08/29/24 06:45 Urinalysis Test 08/28/24 21:48 Urine Color Yellow (Yellow) Urine Clarity Clear (Clear) Urine pH 5.5 (5.0-9.0) Urine Specific [place] 1.016 (1.001-1.035) Urine Protein Negative (Negative) Urine Ketones Negative (Negative) Urine Blood Negative /uL (Negative) Urine Nitrite Negative (Negative) Urine Bilirubin Negative (Negative) Urine Urobilinogen Normal mg/dL (Negative) Urine Leukocyte Esterase Negative /uL (Negative) Urine RBC <1 /hpf (0 - 4) Urine Microscopic WBC < 1 /HPF (0-5) Urine Squamous Epithelial Cells Few /hpf (<5) Urine Bacteria None seen /hpf (None Seen) Urine Mucus Few (None Seen) Urine Glucose Normal mg/dL (Normal) Microbiology Microbiology Date/Time Source Procedure Growth Status 08/28/24 19:04 Blood Blood Culture - Preliminary NO GROWTH AFTER 24 HOURS OF INCUBATION. Resulted Labs and/or images reviewed: Labs reviewed by me, Image(s) reviewed by me Assessment/Plan Assessment/Plan Impression: -acute on chronic hypoxic respiratory failure -bronchial pneumonia -COPD with exacerbation -failure of oral antibiotic therapy with azithromycin -history of PPI -tricuspid valve regurgitation -iron-deficiency anemia -primary hypertension -anxiety disorder Plan: Events: Patient with new complaints of neck pain, rib pain secondary to cough. Discussed patient's multiple drug allergies, with clarification of the patient's medications including no allergy to doxycycline which will be restarted. -continue O2 supplementation to keep saturation greater than 92% -continue Rocephin, add doxycycline -pain management -anxiolytics -prednisone 40 mg p.o. daily -Pulmicort -bronchodilators -continue beta-nel -iron supplementation -continue antiplatelet therapy Total time spent with patient discussing and formulating plan of care: 35 minutes. This medical document was created using an electronic medical record system with [employer] dictation system. Although this document has been carefully reviewed, there may still be some phonetic and typographical errors. These areas are purely typographical due to imperfections of the software programs, and do not reflect any compromise in the patient's medical care. Plan discussed with: Patient, Other (RN) My Orders Orders - POOL DILLARD NP Procedure Category Date Status Time Ceftriaxone 1gm/50ml PHA 08/29/24 In Process D5w (Rocephin) 17:15 Ferrous Sulfate Tablet PHA 08/29/24 In Process 18:00 Prednisone Tablet PHA 08/30/24 In Process 10:00 *Consult Dr[address] Salmon CONS 08/29/24 Transmitted Juan 17:13 Basic Metabolic Panel LAB 08/31/24 Verified 04:00 Complete Blood Count LAB 08/31/24 Verified 04:00 Date of Service: Aug 30, 2024 Billing Provider: POOL DILLARD NP Common Visit Codes: [id number] INP/OBS CARE(HIGH) POOL DILLARD NP Aug 30, 2024 15:10
[2024-08-30] MEDS: KETOROLAC TROMETH 30 MG/ML 1ML VIAL IV ONE (18:37)
[2024-08-30] MEDS: DOXYCYCLINE 100MG/100ML 100 ML IV SCH (18:37)
[2024-08-30] MEDS: ALPRAZolam 0.25 MG TAB PO PRN (22:31)
[2024-08-31] VITALS (13 sets, daily range): BP systolic 102–134; BP diastolic 49–64; PULSE 70–127; RESP 16–22; TEMP 97.8–98.4; O2SAT 93–100
--- NOTE | 2024-08-31 06:44 | DVHPN2 ---
Progress Note - Dictate Date Seen: Aug 31, 2024 Medical Necessity Reason Pt with a Central, PICC or Fol: No vital signs Vital Sign Date Time Temp Pulse Resp B/P (MAP) Pulse Ox O2 Delivery O2 Flow Rate FiO2 08/31/24 05:00 98.4 78 18 115/64 (81) 97 98.4 08/30/24 20:47 Nasal Cannula* 3 32 Total Intake and Output 08/30/24 08/30/24 08/31/24 15:00 23:00 07:00 Intake Total 50 ml 590 ml 800 ml Output Total 350 ml Balance 50 ml 590 ml 450 ml medications Current Medications Medications Dose Ordered Sig/Romaine Route Start Time Stop Time Status Last Admin Dose Admin Aspirin 81 mg DAILY PO 08/29/24 10:00 08/30/24 09:41 81 MG Atorvastatin Calcium 40 mg HS PO 08/28/24 22:00 08/30/24 22:17 40 MG Carvedilol 12.5 mg Q12HR PO 08/28/24 22:00 08/30/24 22:17 12.5 MG Furosemide 40 mg DAILY PO 08/29/24 10:00 08/30/24 09:43 40 MG Isosorbide Mononitrate 60 mg DAILY PO 08/29/24 10:00 08/30/24 09:42 60 MG Ranolazine 500 mg BID PO 08/28/24 22:00 08/30/24 22:17 500 MG Ticagrelor 90 mg BID PO 08/28/24 22:00 08/30/24 22:17 90 MG Albuterol 2.5 mg Q6HPRN PRN NEB 08/28/24 20:00 08/30/24 07:52 2.5 MG Ipratropium [place] 0.5 mg Q6HPRN PRN NEB 08/28/24 20:00 08/30/24 07:52 0.5 MG Ondansetron HCl 4 mg Q4HP PRN IV 08/28/24 20:00 Enoxaparin Sodium 40 mg DAILY SC 08/29/24 10:00 08/30/24 09:45 40 MG Acetaminophen 650 mg Q6HP PRN PO 08/28/24 20:00 08/28/24 21:14 650 MG Morphine Sulfate 1 mg Q4HPRN PRN IV 08/29/24 10:30 08/30/24 13:53 1 MG Acetaminophen/ Hydrocodone Bitart 1 tab Q6HPRN PRN PO 08/29/24 10:30 08/30/24 09:41 1 TAB Ceftriaxone Sodium 50 ml @ 100 mls/hr DAILY@09 IV 08/29/24 17:15 08/30/24 09:43 100 MLS/HR Ferrous Sulfate 325 mg BIDWM PO 08/29/24 18:00 08/30/24 18:37 325 MG Prednisone 40 mg DAILY PO 08/30/24 10:00 08/30/24 09:42 40 MG Alprazolam 0.25 mg Q8HP PRN PO 08/30/24 15:15 08/30/24 22:31 0.25 MG Doxycycline Hyclate 100 ml @ 50 mls/hr Q12HR@0500,1700 IV 08/30/24 15:15 08/31/24 05:10 50 MLS/HR laboratory and microbiology Laboratory Tests 08/29/24 06:45 08/28/24 19:04 Test 08/29/24 06:45 Range/Units Serum Glucose 163 H 74-106 mg/dL Assessment/Plan Patient is a 74-year-old female who presented to the hospital with cough, productive and chills. She has been experiencing it for around a month which worsened in the past two weeks. She has received Zithromax as outpatient with no help. Did have greenish productive cough. Is admitted with COPD exacerbation/pneumonia. Cardiology is involved for cardiac aspect of care. Patient is known to our practice from outside. She denies chest discomfort. Cardiac wilcox, she is known to have coronary artery disease, status post CABG and PCI (few years back). She does have pulmonary hypertension and pacemaker. She is known to have closed bypass grafts. In July, she was in the office and the pacemaker was interrogated. Lying comfortably flat in bed. No JVD. pink mucosa. Lungs reveal scattered rhonchi. Cardiac: Regular, no thrills/murmur. Abdomen is soft. No hepatomegaly. Bowel sounds positive. Lower extremities do not reveal edema. Dorsalis pedis is 2+ bilateral Past medical history includes diabetes mellitus, hyperlipidemia, hypertension, diastolic heart failure, peripheral artery disease, GERD, anxiety, anemia, asthma, coronary artery disease, status post CABG and PCI, status post pacemaker implantation ([employer]), status post old CVA, COPD on home oxygen, fibromyalgia, pulmonary hypertension, history of poor functional status, history of GI bleeding, pulmonary fibrosis, hiatal hernia, ex-smoker, status post gold cholecystectomy/hysterectomy. Is known to have closed grafts for CABG. Has had high risk PCI/left main in [facility] (few years back). Does have history of abnormal nuclear stress test and the plan has been to manage her medically. She is kept on Aspirin and Brilinta. She is ex-smoker. Echocardiogram of January 09, 2023 revealed LVEF of 55 to 60%, mild concentric left ventricular hypertrophy, no wall motion abnormality, mild biatrial enlargement, pacing wire in right-sided chambers, mild to moderate aortic insufficiency, mild mitral regurgitation, mild to moderate tricuspid regurgitation and right ventricular systolic pressure of 35 mmHg Echocardiogram of March 07, 2023 had revealed ejection fraction of 55 to 60%, mild concentric left ventricular hypertrophy, mild AI/MR/PI, mild biatrial enlargement, pacemaker wire in the right-sided chambers and right ventricular systolic pressure of 34 mmHg Echocardiogram of September 06, 2023 revealed ejection fraction of 55% and pacemaker in right-sided chambers Echocardiogram of December 26, 2023 had reported ejection fraction of 55-60%, no wall motion abnormality, [id number] aortic insufficiency, mild MR, moderate TR and right ventricular systolic pressure 42 mm Hg Hemoglobin: 9.2 - 9.8 Creatinine: 0.78 - 0.63 - 0.87 Potassium: 3.8 - 4.1 - 3.3 Troponin (sinus rhythm): 5 BNP: 209.56 Chest x-ray revealed: IMPRESSION: 1. Pacemaker in place unchanged 2. Bilateral perihilar peribronchial thickening findings may represent bronchitis. 3. Cardiac size is stable. Telemetry reveals sinus rhythm and occasions of paced rhythm Patient is a 74-year-old female who presented with shortness of breath and productive cough. Presentation is in favor of pneumonia/COPD exacerbation. Acute coronary syndrome is not considered. Patient does have pacemaker which has been interrogated recently. High sensitive troponin has been negative. EKG has been nonrevealing. Cardiac etiology for presentation is less likely. COPD exacerbation Pneumonia Pulmonary fibrosis Pulmonary hypertension Chronic diastolic heart failure Status post pacemaker Hypokalemia Cardiac suggestions for management: Manage on telemetry Follow-up electrolytes and kidney function and correct abnormalities, keep potassium above 4 magnesium above 2 Continuation of Statin/Ranexa/Imdur suggested ASA: 81 mg daily Evaluation and management of pneumonia/COPD exacerbation as per primary team/Pulmonary Request for echocardiogram Thank you for consultation Further evaluation and management depends on the above and clinical course A total of 75 minutes was spent reviewing the patient record, examining the patient, making a diagnostic and therapeutic plan, discussing this plan with medical personnel, following up on diagnostic studies and following the patient for clinical stability excluding any and all procedures. At least 50% of this time was spent in direct, [id number] contact. Thank you for allowing me to participate in this patient's care. Further recommendations will depend on patient's clinical course. Please do not hesitate to contact me if you have any questions or concerns. This medical document was created using electronic medical record system with [employer] computerized dictation system. Although this document has been carefully reviewed, there may still be some phonetic and typographical errors. These areas are purely typographical due to the imperfection of the software programs, and do not reflect any compromise in the patient's medical care. Plan discussed with: Patient, Other (nurse) Plan discussed with: Patient (Patient and Primary RN ) RONA GOMEZ Aug 31, 2024 06:44
[2024-08-31 07:51] LABS: Basophils # (auto) 0 10 ^3/uL (0-0.2); Basophils % (auto) 0.2 % (0.0-2.0); Eosinophils # (auto) 0.1 10 ^3/uL (0-0.8); Hematocrit 29.9 % (36.0-46.0); Hemoglobin 9.8 g/dL (12.2-16.2); Lymphocytes # (auto) 0.6 10 ^3/uL (0.4-5.4); Lymphocytes % (auto) 8.9 % (10.0-50.0); Mean Corpuscular Hemoglobin 31.3 pg (28.0-32.0); Mean Corpuscular Hgb Conc. 32.8 g/dL (32.0-36.0); Mean Corpuscular Volume 95.6 fL (80.0-100.0); Monocytes # (auto) 0.6 10 ^3/uL (0-1.3); Monocytes % (auto) 8.8 % (0.0-12.0); Neutrophils # (auto) 5.1 10 ^3/uL (1.6-8.6); Neutrophils % (auto) 81.1 % (37.0-80.0); Nucleated Red Blood Cells % 0.2 %; Platelet Count (auto) 221 10^3/uL (140-450); Red Blood Cells 3.12 10^6/uL (4.0-5.20); Red Cell Distribution Width 16.8 % (11.8-14.3); White Blood Cell 6.3 10^3/uL (4.4-10.8)
[2024-08-31 07:57] LABS: Anion Gap 12 (5-15); Carbon Dioxide 28 mmol/L (20-31); Chloride 99 mmol/L (98-107); Sodium 139 mmol/L (136-145)
[2024-08-31 07:58] LABS: Calcium 9.5 mg/dL (8.7-10.4)
[2024-08-31 08:03] LABS: BUN/Creatinine Ratio 33.3 (10.0-20.0); Glucose 89 mg/dL (74-106)
[2024-08-31 08:09] LABS: Blood Urea Nitrogen 29 mg/dL (9-23); Potassium 3.3 mmol/L (3.5-5.1)
--- NOTE | 2024-08-31 12:41 | DVHPN2 ---
Reviewed: Care Plan, H&P Changes from previous H/P or p: No Changes General: Per HPI Objective Vitals Vital Signs Date Time Temp Pulse Resp B/P (MAP) Pulse Ox O2 Delivery O2 Flow Rate FiO2 08/31/24 11:58 70 16 100 08/31/24 11:52 Nasal Cannula 2.0 08/31/24 11:52 28 08/31/24 09:34 127/60 08/31/24 08:44 97.9 97.9 Intake/Output Intake and Output 08/31/24 07:00 Intake Total 1440 ml Output Total 350 ml Balance 1090 ml Intake Oral 1290 ml IV Total 150 ml Output Urine Total 350 ml # Voids 5 General Appearance: Alert, Oriented X3, Cooperative, mild distress HEENT: Atraumatic, PERRLA Lungs: Clear to auscultation, Normal air movement Cardiovascular: Normal S1, Normal S2 Abdomen: Normal bowel sounds Genitourinary: No Apparent Abnormalities Musculoskeletal: Normal sensory function, Normal motor function Neuro: Normal gait, Normal speech Skin: Dry, Intact Psych/Mental Status: Mental status NL, Mood NL Medications Current Medications Medications Dose Ordered Sig/Romaine Route Start Time Stop Time Status Last Admin Dose Admin Aspirin 81 mg DAILY PO 08/29/24 10:00 08/31/24 09:34 81 MG Atorvastatin Calcium 40 mg HS PO 08/28/24 22:00 08/30/24 22:17 40 MG Carvedilol 12.5 mg Q12HR PO 08/28/24 22:00 08/31/24 09:33 12.5 MG Furosemide 40 mg DAILY PO 08/29/24 10:00 08/31/24 09:34 40 MG Isosorbide Mononitrate 60 mg DAILY PO 08/29/24 10:00 08/31/24 09:33 60 MG Ranolazine 500 mg BID PO 08/28/24 22:00 08/31/24 09:34 500 MG Ticagrelor 90 mg BID PO 08/28/24 22:00 08/31/24 09:33 90 MG Ondansetron HCl 4 mg Q4HP PRN IV 08/28/24 20:00 Enoxaparin Sodium 40 mg DAILY SC 08/29/24 10:00 08/31/24 09:34 40 MG Acetaminophen 650 mg Q6HP PRN PO 08/28/24 20:00 08/28/24 21:14 650 MG Morphine Sulfate 1 mg Q4HPRN PRN IV 08/29/24 10:30 08/30/24 13:53 1 MG Acetaminophen/ Hydrocodone Bitart 1 tab Q6HPRN PRN PO 08/29/24 10:30 08/30/24 09:41 1 TAB Ceftriaxone Sodium 50 ml @ 100 mls/hr DAILY@09 IV 08/29/24 17:15 08/31/24 08:52 100 MLS/HR Ferrous Sulfate 325 mg BIDWM PO 08/29/24 18:00 08/31/24 08:52 325 MG Prednisone 40 mg DAILY PO 08/30/24 10:00 08/31/24 09:34 40 MG Alprazolam 0.25 mg Q8HP PRN PO 08/30/24 15:15 08/31/24 09:33 0.25 MG Doxycycline Hyclate 100 ml @ 50 mls/hr Q12HR@0500,1700 IV 08/30/24 15:15 08/31/24 05:10 50 MLS/HR Albuterol 2.5 mg Q6HWA NEB 08/31/24 18:00 Ipratropium [place] 0.5 mg Q6HWA NEB 08/31/24 18:00 Laboratory Results Laboratory Tests 08/31/24 07:03 Chemistry Test 08/31/24 07:03 Calcium Level 9.5 mg/dL (8.7-10.4) Urinalysis Test 08/28/24 21:48 Urine Color Yellow (Yellow) Urine Clarity Clear (Clear) Urine pH 5.5 (5.0-9.0) Urine Specific [place] 1.016 (1.001-1.035) Urine Protein Negative (Negative) Urine Ketones Negative (Negative) Urine Blood Negative /uL (Negative) Urine Nitrite Negative (Negative) Urine Bilirubin Negative (Negative) Urine Urobilinogen Normal mg/dL (Negative) Urine Leukocyte Esterase Negative /uL (Negative) Urine RBC <1 /hpf (0 - 4) Urine Microscopic WBC < 1 /HPF (0-5) Urine Squamous Epithelial Cells Few /hpf (<5) Urine Bacteria None seen /hpf (None Seen) Urine Mucus Few (None Seen) Urine Glucose Normal mg/dL (Normal) Microbiology Microbiology Date/Time Source Procedure Growth Status 08/28/24 19:04 Blood Blood Culture - Preliminary NO GROWTH AFTER 48 HOURS OF INCUBATION. Resulted Labs and/or images reviewed: Labs reviewed by me, Image(s) reviewed by me Assessment/Plan Assessment/Plan Covering For nurse practitioner Jigar Nelson -acute on chronic hypoxic respiratory failure -bronchial pneumonia Rocephin doxycycline prednisone -COPD with exacerbation -failure of oral antibiotic therapy with azithromycin -history of PPI -tricuspid valve regurgitation -iron-deficiency anemia -primary hypertension -anxiety disorder Frequent Admissions Patient lives with a caregiver at home Plan discussed with: Patient My Orders Orders - JULIANNA SLOAN MD Procedure Category Date Status Time Albuterol Medneb PHA 08/31/24 In Process (Ventolin Medneb) 18:00 Ipratropium Medneb PHA 08/31/24 In Process (Atrovent Medneb) 18:00 Date of Service: Aug 31, 2024 Billing Provider: JULIANNA SLOAN MD Common Visit Codes: [id number] INP/OBS CARE(HIGH) JULIANNA SLOAN MD Aug 31, 2024 12:40
[2024-08-31] MEDS: POTASSIUM EFFERVESENT TAB 25 MEQ PO ONE (12:43)
[2024-08-31] MEDS: IPRATROPIUM BROM 0.5 MG/2.5ML INH SOL NEB SCH (19:24)
[2024-08-31] MEDS: ALBUTEROL SULF 2.5 MG/0.5ML(0.5%) NEB SOLN NEB SCH (19:24)
[2024-09-01] VITALS (14 sets, daily range): BP systolic 106–136; BP diastolic 51–84; PULSE 67–137; RESP 14–20; TEMP 97.5–98.6; O2SAT 94–100
[2024-09-01 02:15] LABS: Basophils # (auto) 0 10 ^3/uL (0-0.2); Basophils % (auto) 0.3 % (0.0-2.0); Eosinophils # (auto) 0 10 ^3/uL (0-0.8); Eosinophils % (auto) 0.1 % (0.0-7.0); Hematocrit 31.2 % (36.0-46.0); Hemoglobin 10.3 g/dL (12.2-16.2); Lymphocytes # (auto) 0.5 10 ^3/uL (0.4-5.4); Lymphocytes % (auto) 6.5 % (10.0-50.0); Mean Corpuscular Hemoglobin 30.9 pg (28.0-32.0); Mean Corpuscular Volume 93.6 fL (80.0-100.0); Monocytes # (auto) 0.5 10 ^3/uL (0-1.3); Monocytes % (auto) 7.2 % (0.0-12.0); Neutrophils # (auto) 6.4 10 ^3/uL (1.6-8.6); Neutrophils % (auto) 85.9 % (37.0-80.0); Platelet Count (auto) 245 10^3/uL (140-450); Red Blood Cells 3.33 10^6/uL (4.0-5.20); Red Cell Distribution Width 16.4 % (11.8-14.3); White Blood Cell 7.4 10^3/uL (4.4-10.8)
[2024-09-01 02:31] LABS: Chloride 101 mmol/L (98-107); Potassium 3.8 mmol/L (3.5-5.1); Sodium 138 mmol/L (136-145)
[2024-09-01 02:32] LABS: Anion Gap 7 (5-15); Calcium 9.7 mg/dL (8.7-10.4); Carbon Dioxide 30 mmol/L (20-31)
[2024-09-01 02:37] LABS: BUN/Creatinine Ratio 30.3 (10.0-20.0); Glucose 99 mg/dL (74-106)
[2024-09-01 02:38] LABS: Magnesium 1.8 mg/dL (1.6-2.6)
[2024-09-01 02:40] LABS: Blood Urea Nitrogen 27 mg/dL (9-23)
--- NOTE | 2024-09-01 06:25 | DVHPN2 ---
Progress Note - Dictate Date Seen: Sep 01, 2024 Medical Necessity Reason Pt with a Central, PICC or Fol: No Subjective Patient seen and examined at the bedside within telemetry. Overnight event reveal patient had brief episode of atrial flutter with RVR with spontaneous conversion to sinus rhythm. vital signs Vital Sign Date Time Temp Pulse Resp B/P (MAP) Pulse Ox O2 Delivery O2 Flow Rate FiO2 09/01/24 01:00 133 20 106/67 08/31/24 20:35 93 2.0 28 08/31/24 20:00 Nasal Cannula* 08/31/24 17:00 97.9 97.9 Total Intake and Output 08/31/24 08/31/24 09/01/24 14:59 22:59 06:59 Intake Total 150 ml 700 ml Balance 150 ml 700 ml medications Current Medications Medications Dose Ordered Sig/Romaine Route Start Time Stop Time Status Last Admin Dose Admin Aspirin 81 mg DAILY PO 08/29/24 10:00 08/31/24 09:34 81 MG Atorvastatin Calcium 40 mg HS PO 08/28/24 22:00 08/31/24 21:51 40 MG Carvedilol 12.5 mg Q12HR PO 08/28/24 22:00 08/31/24 21:52 12.5 MG Furosemide 40 mg DAILY PO 08/29/24 10:00 08/31/24 09:34 40 MG Isosorbide Mononitrate 60 mg DAILY PO 08/29/24 10:00 08/31/24 09:33 60 MG Ranolazine 500 mg BID PO 08/28/24 22:00 08/31/24 21:52 500 MG Ticagrelor 90 mg BID PO 08/28/24 22:00 08/31/24 21:53 90 MG Ondansetron HCl 4 mg Q4HP PRN IV 08/28/24 20:00 Enoxaparin Sodium 40 mg DAILY SC 08/29/24 10:00 08/31/24 09:34 40 MG Acetaminophen 650 mg Q6HP PRN PO 08/28/24 20:00 08/28/24 21:14 650 MG Morphine Sulfate 1 mg Q4HPRN PRN IV 08/29/24 10:30 08/31/24 23:41 1 MG Acetaminophen/ Hydrocodone Bitart 1 tab Q6HPRN PRN PO 08/29/24 10:30 08/31/24 17:16 1 TAB Ceftriaxone Sodium 50 ml @ 100 mls/hr DAILY@09 IV 08/29/24 17:15 08/31/24 08:52 100 MLS/HR Ferrous Sulfate 325 mg BIDWM PO 08/29/24 18:00 08/31/24 17:16 325 MG Prednisone 40 mg DAILY PO 08/30/24 10:00 08/31/24 09:34 40 MG Alprazolam 0.25 mg Q8HP PRN PO 08/30/24 15:15 08/31/24 22:36 0.25 MG Doxycycline Hyclate 100 ml @ 50 mls/hr Q12HR@0500,1700 IV 08/30/24 15:15 08/31/24 16:11 50 MLS/HR Albuterol 2.5 mg Q6HWA [facility] 08/31/24 18:00 08/31/24 19:24 2.5 MG Ipratropium [place] 0.5 mg Q6HWA [facility] 08/31/24 18:00 08/31/24 19:24 0.5 MG laboratory and microbiology Laboratory Tests 09/01/24 01:34 Test 09/01/24 01:34 Range/Units Serum Glucose 99 74-106 mg/dL Assessment/Plan Patient is a 74-year-old female who presented to the hospital with cough, productive and chills. She has been experiencing it for around a month which worsened in the past two weeks. She has received Zithromax as outpatient with no help. Did have greenish productive cough. Is admitted with COPD exacerbation/pneumonia. Cardiology is involved for cardiac aspect of care. Patient is known to our practice from outside. She denies chest discomfort. Cardiac wilcox, she is known to have coronary artery disease, status post CABG and PCI (few years back). She does have pulmonary hypertension and pacemaker. She is known to have closed bypass grafts. In July, she was in the office and the pacemaker was interrogated. Lying comfortably flat in bed. No JVD. pink mucosa. Lungs reveal scattered rhonchi. Cardiac: Regular, no thrills/murmur. Abdomen is soft. No hepatomegaly. Bowel sounds positive. Lower extremities do not reveal edema. Dorsalis pedis is 2+ bilateral Past medical history includes diabetes mellitus, hyperlipidemia, hypertension, diastolic heart failure, peripheral artery disease, GERD, anxiety, anemia, asthma, coronary artery disease, status post CABG and PCI, status post pacemaker implantation ([employer]), status post old CVA, COPD on home oxygen, fibromyalgia, pulmonary hypertension, history of poor functional status, history of GI bleeding, pulmonary fibrosis, hiatal hernia, ex-smoker, status post gold cholecystectomy/hysterectomy. Is known to have closed grafts for CABG. Has had high risk PCI/left main in [facility] (few years back). Does have history of abnormal nuclear stress test and the plan has been to manage her medically. She is kept on Aspirin and Brilinta. She is ex-smoker. Echocardiogram of January 09, 2023 revealed LVEF of 55 to 60%, mild concentric left ventricular hypertrophy, no wall motion abnormality, mild biatrial enlargement, pacing wire in right-sided chambers, mild to moderate aortic insufficiency, mild mitral regurgitation, mild to moderate tricuspid regurgitation and right ventricular systolic pressure of 35 mmHg Echocardiogram of March 07, 2023 had revealed ejection fraction of 55 to 60%, mild concentric left ventricular hypertrophy, mild AI/MR/PI, mild biatrial enlargement, pacemaker wire in the right-sided chambers and right ventricular systolic pressure of 34 mmHg Echocardiogram of September 06, 2023 revealed ejection fraction of 55% and pacemaker in right-sided chambers Echocardiogram of December 26, 2023 had reported ejection fraction of 55-60%, no wall motion abnormality, [id number] aortic insufficiency, mild MR, moderate TR and right ventricular systolic pressure 42 mm Hg Hemoglobin: 9.2 - 9.8 Creatinine: 0.78 - 0.63 - 0.87 Potassium: 3.8 - 4.1 - 3.3 Troponin (sinus rhythm): 5 BNP: 209.56 Chest x-ray revealed: IMPRESSION: 1. Pacemaker in place unchanged 2. Bilateral perihilar peribronchial thickening findings may represent bronchitis. 3. Cardiac size is stable. Telemetry reveals sinus rhythm and occasions of paced rhythm Patient is a 74-year-old female who presented with shortness of breath and productive cough. Presentation is in favor of pneumonia/COPD exacerbation. Acute coronary syndrome is not considered. Patient does have pacemaker which has been interrogated recently. High sensitive troponin has been negative. EKG has been nonrevealing. Cardiac etiology for presentation is less likely. COPD exacerbation Pneumonia Pulmonary fibrosis Pulmonary hypertension Chronic diastolic heart failure Status post pacemaker Hypokalemia Paroxysmal atrial flutter with RVR, new onset Cardiac suggestions for management: Manage on telemetry Continuation of Statin/Ranexa/Imdur suggested Follow-up electrolytes and kidney function and correct abnormalities, keep potassium above 4 magnesium above 2 Full anti-coagulation for CVA prophylaxis is advised given new onset PAF in presence of elevated CHADSVASc score Start Therapeutic Lovenox for CVA prophylaxis as for now Transition to DOAC (Eliquis 2.5mg twice daily) upon discharge Discontinue current Aspirin and Brilinta therapy Start Plavix 75mg daily given previous PCI Amiodarone 200mg qhs for now Carvedilol 12.5mg twice daily Evaluation and management of pneumonia/COPD exacerbation as per primary team/Pulmonary Awaiting requested echocardiogram Thank you for consultation Further evaluation and management depends on the above and clinical course A total of 75 minutes was spent reviewing the patient record, examining the patient, making a diagnostic and therapeutic plan, discussing this plan with medical personnel, following up on diagnostic studies and following the patient for clinical stability excluding any and all procedures. At least 50% of this time was spent in direct, [id number] contact. Thank you for allowing me to participate in this patient's care. Further recommendations will depend on patient's clinical course. Please do not hesitate to contact me if you have any questions or concerns. This medical document was created using electronic medical record system with [employer] computerized dictation system. Although this document has been carefully reviewed, there may still be some phonetic and typographical errors. These areas are purely typographical due to the imperfection of the software programs, and do not reflect any compromise in the patient's medical care. Plan discussed with: Patient, Other (nurse) Plan discussed with: Patient (Patient and Caregiver) RONA GOMEZP Sep 01, 2024 06:25
--- NOTE | 2024-09-01 11:35 | ECG ---
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
--- NOTE | 2024-09-01 13:39 | DVHPN2 ---
Reviewed: Care Plan, H&P Changes from previous H/P or p: No Changes General: Per HPI Objective Vitals Vital Signs Date Time Temp Pulse Resp B/P (MAP) Pulse Ox O2 Delivery O2 Flow Rate FiO2 09/01/24 12:41 97.7 67 14 107/51 (69) 98 97.7 09/01/24 10:00 Nasal Cannula 3.0 09/01/24 10:00 32 Intake/Output Intake and Output 09/01/24 07:00 Intake Total 1250 ml Output Total 300 ml Balance 950 ml Intake Oral 1000 ml IV Total 250 ml Output Urine Total 300 ml # Voids 3 # Bowel Movements 1 General Appearance: Alert, Oriented X3, Cooperative, mild distress HEENT: Atraumatic, PERRLA Lungs: Clear to auscultation, Normal air movement Cardiovascular: Normal S1, Normal S2 Abdomen: Normal bowel sounds Genitourinary: No Apparent Abnormalities Musculoskeletal: Normal sensory function, Normal motor function Neuro: Normal gait, Normal speech Skin: Dry, Intact Psych/Mental Status: Mental status NL, Mood NL Medications Current Medications Medications Dose Ordered Sig/Romaine Route Start Time Stop Time Status Last Admin Dose Admin Aspirin 81 mg DAILY PO 08/29/24 10:00 09/01/24 10:14 81 MG Atorvastatin Calcium 40 mg HS PO 08/28/24 22:00 08/31/24 21:51 40 MG Carvedilol 12.5 mg Q12HR PO 08/28/24 22:00 09/01/24 08:07 12.5 MG Furosemide 40 mg DAILY PO 08/29/24 10:00 08/31/24 09:34 40 MG Isosorbide Mononitrate 60 mg DAILY PO 08/29/24 10:00 08/31/24 09:33 60 MG Ranolazine 500 mg BID PO 08/28/24 22:00 09/01/24 08:06 500 MG Ticagrelor 90 mg BID PO 08/28/24 22:00 09/01/24 08:07 90 MG Ondansetron HCl 4 mg Q4HP PRN IV 08/28/24 20:00 Enoxaparin Sodium 40 mg DAILY SC 08/29/24 10:00 09/01/24 10:14 40 MG Acetaminophen 650 mg Q6HP PRN PO 08/28/24 20:00 08/28/24 21:14 650 MG Morphine Sulfate 1 mg Q4HPRN PRN IV 08/29/24 10:30 08/31/24 23:41 1 MG Acetaminophen/ Hydrocodone Bitart 1 tab Q6HPRN PRN PO 08/29/24 10:30 09/01/24 07:53 1 TAB Ceftriaxone Sodium 50 ml @ 100 mls/hr DAILY@09 IV 08/29/24 17:15 09/01/24 08:07 100 MLS/HR Ferrous Sulfate 325 mg BIDWM PO 08/29/24 18:00 09/01/24 07:53 325 MG Prednisone 40 mg DAILY PO 08/30/24 10:00 09/01/24 10:14 40 MG Alprazolam 0.25 mg Q8HP PRN PO 08/30/24 15:15 08/31/24 22:36 0.25 MG Doxycycline Hyclate 100 ml @ 50 mls/hr Q12HR@0500,1700 IV 08/30/24 15:15 08/31/24 16:11 50 MLS/HR Albuterol 2.5 mg Q6HWA [facility] 08/31/24 18:00 09/01/24 10:55 2.5 MG Ipratropium [place] 0.5 mg Q6HWA NE[facility] 08/31/24 18:00 09/01/24 10:55 0.5 MG Laboratory Results Laboratory Tests 09/01/24 01:34 Chemistry Test 09/01/24 01:34 Calcium Level 9.7 mg/dL (8.7-10.4) Magnesium Level 1.8 mg/dL (1.6-2.6) Urinalysis Test 08/28/24 21:48 Urine Color Yellow (Yellow) Urine Clarity Clear (Clear) Urine pH 5.5 (5.0-9.0) Urine Specific [place] 1.016 (1.001-1.035) Urine Protein Negative (Negative) Urine Ketones Negative (Negative) Urine Blood Negative /uL (Negative) Urine Nitrite Negative (Negative) Urine Bilirubin Negative (Negative) Urine Urobilinogen Normal mg/dL (Negative) Urine Leukocyte Esterase Negative /uL (Negative) Urine RBC <1 /hpf (0 - 4) Urine Microscopic WBC < 1 /HPF (0-5) Urine Squamous Epithelial Cells Few /hpf (<5) Urine Bacteria None seen /hpf (None Seen) Urine Mucus Few (None Seen) Urine Glucose Normal mg/dL (Normal) Microbiology Microbiology Date/Time Source Procedure Growth Status 08/28/24 19:04 Blood Blood Culture - Preliminary NO GROWTH AFTER 72 HOURS OF INCUBATION. Resulted Labs and/or images reviewed: Labs reviewed by me, Image(s) reviewed by me Assessment/Plan Assessment/Plan Covering For nurse practitioner Jigar Nelson -acute on chronic hypoxic respiratory failure Acute community-acquired pneumonia Rocephin doxycycline prednisone -COPD with exacerbation -failure of oral antibiotic therapy with azithromycin -history of PPI -tricuspid valve regurgitation consult for Dr Garcia -iron-deficiency anemia -primary hypertension -anxiety disorder Frequent Admissions Patient lives with a caregiver at home Plan discussed with: Patient Date of Service: Sep 01, 2024 Billing Provider: JULIANNA SLOAN MD Common Visit Codes: [id number] INP/OBS CARE(HIGH) JULIANNA SLOAN MD Sep 01, 2024 13:39
[2024-09-01] MEDS: AMIODARONE HCL 200 MG TAB PO SCH (22:07)
[2024-09-01] MEDS: ENOXAPARIN SOD 80 MG/0.8ML SYRINGE SC SCH (22:14)
[2024-09-02] VITALS (17 sets, daily range): BP systolic 126–153; BP diastolic 55–77; PULSE 62–89; RESP 14–18; TEMP 97.3–98.9; O2SAT 95–100
[2024-09-02] MEDS: CLOPIDOGREL BISULFATE 75 MG TAB PO SCH (08:35)
[2024-09-02] MEDS: MAGNESIUM OXIDE 400 MG TAB PO SCH (08:35)
--- NOTE | 2024-09-02 09:08 | DVHSR ---
APPROVED REPORT EXAM: Two-dimensional and M-mode echocardiogram with Doppler and color Doppler. Blood Pressure: 110/45 mmHg INDICATION doctors request RISK FACTORS Height: 5'3, Weight: 158 DIMENSIONS LVDd4.5 (3.8-5.7cm)LA (2D)3.9 (1.9-4.0cm)Aortic Root2.6 (2.0-3.7cm) LVDs3.2 (2.5-4.0cm)LA (MM) (1.9-4.0cm)Aortic Cusp Exc1.3 (1.5-2.0cm) EF (%) 55.0 (55-70%)Rt. Atrium3.7 (1.9-4.0cm)Asc. Aorta cm IVSd1.0 (0.7-1.1cm)RV (D)4.5 (1.8-2.4cm) PWd0.9 (0.7-1.1cm) Mitral Valve MitralMitral Stenosis E wave0.82m/sMV Mean GR.mmHg A wave0.78m/sMV Peak GR.90mmHg E/A ratio1.12D MVAcm2 DECEL [id number] 1/2 Timems Aortic Valve Aortic ValveAortic Stenosis V10.84m/Jem Mean GR.7mmHg V21.70m/Jem Peak GR.12mmHg LVOT Diameter1.7 (1.8-2.4cm)Doppler AVA1.12cm2 Pulmonic Valve V21.06m/s Tricuspid Valve TR Velocity2.85m/s [id number] Conclusion Left ventricle: Mild concentric left ventricular hypertrophy was seen. LV EF was 55-60%. There was no gross wall motion abnormality. Right ventricle was normal sized with normal systolic function. Both atria were mildly dilated. Pac ing wire was seen in the right-sided chambers. Aortic valve: Aortic valve was not well visualized. There was mild aortic insufficiency. There was no aortic stenosis. There was mild mitral regurgitation. There was moderate tricuspid regurgitation . Pulmonary valve was not well visualized. Right ventricular systolic pressure was assessed at 41 mm Hg. There was no pericardial effusion.
--- NOTE | 2024-09-02 09:35 | DVHPN2 ---
Progress Note - Dictate Date Seen: Sep 02, 2024 Medical Necessity Reason Pt with a Central, PICC or Fol: No vital signs Vital Sign Date Time Temp Pulse Resp B/P (MAP) Pulse Ox O2 Delivery O2 Flow Rate FiO2 09/02/24 08:36 152/73 09/02/24 08:35 70 09/02/24 08:00 Nasal Cannula* 3 32 09/02/24 06:53 14 100 09/02/24 05:00 97.5 97.5 Total Intake and Output 09/01/24 09/01/24 09/02/24 15:00 23:00 07:00 Intake Total 50 ml 1078 ml 200 ml Balance 50 ml 1078 ml 200 ml medications Current Medications Medications Dose Ordered Sig/Romaine Route Start Time Stop Time Status Last Admin Dose Admin Atorvastatin Calcium 40 mg HS PO 08/28/24 22:00 09/01/24 22:07 40 MG Carvedilol 12.5 mg Q12HR PO 08/28/24 22:00 09/02/24 08:35 12.5 MG Furosemide 40 mg DAILY PO 08/29/24 10:00 09/02/24 08:36 40 MG Isosorbide Mononitrate 60 mg DAILY PO 08/29/24 10:00 09/02/24 08:35 60 MG Ranolazine 500 mg BID PO 08/28/24 22:00 09/02/24 08:36 500 MG Ondansetron HCl 4 mg Q4HP PRN IV 08/28/24 20:00 Acetaminophen 650 mg Q6HP PRN PO 08/28/24 20:00 08/28/24 21:14 650 MG Morphine Sulfate 1 mg Q4HPRN PRN IV 08/29/24 10:30 08/31/24 23:41 1 MG Acetaminophen/ Hydrocodone Bitart 1 tab Q6HPRN PRN PO 08/29/24 10:30 09/01/24 07:53 1 TAB Ceftriaxone Sodium 50 ml @ 100 mls/hr DAILY@09 IV 08/29/24 17:15 09/01/24 08:07 100 MLS/HR Ferrous Sulfate 325 mg BIDWM PO 08/29/24 18:00 09/02/24 08:35 325 MG Prednisone 40 mg DAILY PO 08/30/24 10:00 09/02/24 08:36 40 MG Alprazolam 0.25 mg Q8HP PRN PO 08/30/24 15:15 09/01/24 22:07 0.25 MG Doxycycline Hyclate 100 ml @ 50 mls/hr Q12HR@0500,1700 IV 08/30/24 15:15 08/31/24 16:11 50 MLS/HR Albuterol 2.5 mg Q6HWA [facility] 08/31/24 18:00 09/02/24 06:44 2.5 MG Ipratropium [place] 0.5 mg Q6HWA [facility] 08/31/24 18:00 09/02/24 06:44 0.5 MG Clopidogrel Bisulfate 75 mg DAILY PO 09/02/24 10:00 09/02/24 08:35 75 MG Enoxaparin Sodium 70 mg Q12HR [place] 09/01/24 22:00 09/02/24 08:36 70 MG Amiodarone HCl 200 mg HS PO 09/01/24 22:00 09/01/24 22:07 200 MG Magnesium Oxide 400 mg DAILY PO 09/02/24 10:00 09/02/24 08:35 400 MG laboratory and microbiology Laboratory Tests 09/01/24 01:34 Test 09/01/24 01:34 Range/Units Serum Glucose 99 74-106 mg/dL Assessment/Plan Patient is a 74-year-old female who presented to the hospital with cough, productive and chills. She has been experiencing it for around a month which worsened in the past two weeks. She has received Zithromax as outpatient with no help. Did have greenish productive cough. Is admitted with COPD exacerbation/pneumonia. Cardiology is involved for cardiac aspect of care. Patient is known to our practice from outside. She denies chest discomfort. Cardiac wilcox, she is known to have coronary artery disease, status post CABG and PCI (few years back). She does have pulmonary hypertension and pacemaker. She is known to have closed bypass grafts. In July, she was in the office and the pacemaker was interrogated. Lying comfortably flat in bed. No JVD. pink mucosa. Lungs reveal scattered rhonchi. Cardiac: Regular, no thrills/murmur. Abdomen is soft. No hepatomegaly. Bowel sounds positive. Lower extremities do not reveal edema. Dorsalis pedis is 2+ bilateral Past medical history includes diabetes mellitus, hyperlipidemia, hypertension, diastolic heart failure, peripheral artery disease, GERD, anxiety, anemia, asthma, coronary artery disease, status post CABG and PCI, status post pacemaker implantation ([employer]), status post old CVA, COPD on home oxygen, fibromyalgia, pulmonary hypertension, history of poor functional status, history of GI bleeding, pulmonary fibrosis, hiatal hernia, ex-smoker, status post gold cholecystectomy/hysterectomy. Is known to have closed grafts for CABG. Has had high risk PCI/left main in [facility] (few years back). Does have history of abnormal nuclear stress test and the plan has been to manage her medically. She was kept on Aspirin and Brilinta previously. She is ex-smoker. Echocardiogram of January 09, 2023 revealed LVEF of 55 to 60%, mild concentric left ventricular hypertrophy, no wall motion abnormality, mild biatrial enlargement, pacing wire in right-sided chambers, mild to moderate aortic insufficiency, mild mitral regurgitation, mild to moderate tricuspid regurgitation and right ventricular systolic pressure of 35 mmHg Echocardiogram of March 07, 2023 had revealed ejection fraction of 55 to 60%, mild concentric left ventricular hypertrophy, mild AI/MR/PI, mild biatrial enlargement, pacemaker wire in the right-sided chambers and right ventricular systolic pressure of 34 mmHg Echocardiogram of September 06, 2023 revealed ejection fraction of 55% and pacemaker in right-sided chambers Echocardiogram of December 26, 2023 had reported ejection fraction of 55-60%, no wall motion abnormality, [id number] aortic insufficiency, mild MR, moderate TR and right ventricular systolic pressure 42 mm Hg Hemoglobin: 9.2 - 9.8 - 10.3 Creatinine: 0.78 - 0.63 - 0.87 - 0.89 Potassium: 3.8 - 4.1 - 3.3 - 3.8 Troponin (sinus rhythm): 5 BNP: 209.56 TSH: 0.27 Chest x-ray revealed: IMPRESSION: 1. Pacemaker in place unchanged 2. Bilateral perihilar peribronchial thickening findings may represent bronchitis. 3. Cardiac size is stable. Telemetry reveals sinus rhythm and occasions of paced rhythm. Later had A- flutter with RVR, spontaneous conversion to NSR Echocardiogram reported: Left ventricle: Mild concentric left ventricular hypertrophy was seen. LV EF was 55-60%. There was no gross wall motion abnormality. Right ventricle was normal sized with normal systolic function. Both atria were mildly dilated. Pacing wire was seen in the right-sided chambers. Aortic valve: Aortic valve was not well visualized. There was mild aortic insufficiency. There was no aortic stenosis. There was mild mitral regurgitation. There was moderate tricuspid regurgitation. Pulmonary valve was not well visualized. Right ventricular systolic pressure was assessed at 41 mm Hg. There was no pericardial effusion. Patient is a 74-year-old female who presented with shortness of breath and productive cough. Presentation is in favor of pneumonia/COPD exacerbation. Acute coronary syndrome is not considered. Patient does have pacemaker which has been interrogated recently. High sensitive troponin has been negative. EKG has been nonrevealing. Cardiac etiology for presentation is less likely. COPD exacerbation Pneumonia Pulmonary fibrosis Pulmonary hypertension Chronic diastolic heart failure Status post pacemaker Hypokalemia Paroxysmal atrial flutter with RVR, new onset Cardiac suggestions for management: Manage on telemetry Continuation of Statin/Ranexa/Imdur suggested Follow-up electrolytes and kidney function and correct abnormalities, keep potassium above 4 magnesium above 2 Full anti-coagulation for CVA prophylaxis is advised given new onset PAF in presence of elevated CHADSVASc score Transition to DOAC (Eliquis 2.5mg twice daily) Off Aspirin and Brilinta Plavix 75mg daily given previous PCI Amiodarone 200mg qhs for now Carvedilol 12.5mg twice daily Evaluation and management of pneumonia/COPD exacerbation as per primary team/Pulmonary Further evaluation and management depends on the above and clinical course A total of 55 minutes was spent reviewing the patient record, examining the patient, making a diagnostic and therapeutic plan, discussing this plan with medical personnel, following up on diagnostic studies and following the patient for clinical stability excluding any and all procedures. At least 50% of this time was spent in direct, [id number] contact. Thank you for allowing me to participate in this patient's care. Further recommendations will depend on patient's clinical course. Please do not hesitate to contact me if you have any questions or concerns. This medical document was created using electronic medical record system with [employer] dictation system. Although this document has been carefully reviewed, there may still be some phonetic and typographical errors. These areas are purely typographical due to the imperfection of the software programs, and do not reflect any compromise in the patient's medical care. Plan discussed with: Patient, Other (nurse) AJAY SMALLWOOD MD Sep 02, 2024 09:34
--- NOTE | 2024-09-02 15:13 | ECG ---
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
--- NOTE | 2024-09-02 15:13 | ECG ---
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
--- NOTE | 2024-09-02 15:13 | ECG ---
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
--- NOTE | 2024-09-02 15:14 | ECG ---
[facility] Test Date: 2024-09-01 Test Time: 11:53:53 Pat Name: EUN PAIZ Department: Room: 0298T B Gender: F Front Desk Monitor: KGATES4 : 1950 Requested By: JOSÉ MIGUEL MELGOZA Order Number: [id number] Reading MD: Michael Charlton Measurements Intervals [place] Rate: 75 P: 39 [place]: 176 QRS: 3 QRSD: 100 T: 47 QT: 435 QTc: 486 Interpretive Statements Sinus rhythm Borderline T wave abnormalities Borderline prolonged QT interval Electronically Signed On 09-04-2024 10:05:23 PST by Michael Charlton Please click the below link to view image of tracing.
--- NOTE | 2024-09-02 15:14 | ECG ---
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
--- NOTE | 2024-09-02 16:38 | DVHPN2 ---
Subjective Continues to report having shortness of breath. Reviewed: Care Plan, H&P Changes from previous H/P or p: No Changes General: Per HPI Objective Vitals Vital Signs Date Time Temp Pulse Resp B/P (MAP) Pulse Ox O2 Delivery O2 Flow Rate FiO2 09/02/24 13:00 98.9 66 18 135/60 (85) 100 98.9 09/02/24 10:00 Nasal Cannula* 3 32 Intake/Output Intake and Output 09/02/24 07:00 Intake Total 1328 ml Balance 1328 ml Intake Oral 1278 ml IV Total 50 ml # Voids 13 # Bowel Movements 4 General Appearance: Alert, Oriented X3, Cooperative, mild distress HEENT: Atraumatic, PERRLA Lungs: Clear to auscultation, Normal air movement Cardiovascular: Normal S1, Normal S2 Abdomen: Normal bowel sounds Genitourinary: No Apparent Abnormalities Musculoskeletal: Normal sensory function, Normal motor function Neuro: Normal gait, Normal speech Skin: Dry, Intact Psych/Mental Status: Mental status NL, Mood NL Medications Current Medications Medications Dose Ordered Sig/Romaine Route Start Time Stop Time Status Last Admin Dose Admin Atorvastatin Calcium 40 mg HS PO 08/28/24 22:00 09/01/24 22:07 40 MG Carvedilol 12.5 mg Q12HR PO 08/28/24 22:00 09/02/24 08:35 12.5 MG Furosemide 40 mg DAILY PO 08/29/24 10:00 09/02/24 08:36 40 MG Isosorbide Mononitrate 60 mg DAILY PO 08/29/24 10:00 09/02/24 08:35 60 MG Ranolazine 500 mg BID PO 08/28/24 22:00 09/02/24 08:36 500 MG Ondansetron HCl 4 mg Q4HP PRN IV 08/28/24 20:00 Acetaminophen 650 mg Q6HP PRN PO 08/28/24 20:00 08/28/24 21:14 650 MG Morphine Sulfate 1 mg Q4HPRN PRN IV 08/29/24 10:30 08/31/24 23:41 1 MG Acetaminophen/ Hydrocodone Bitart 1 tab Q6HPRN PRN PO 08/29/24 10:30 09/01/24 07:53 1 TAB Ceftriaxone Sodium 50 ml @ 100 mls/hr DAILY@09 IV 08/29/24 17:15 09/02/24 12:13 100 MLS/HR Ferrous Sulfate 325 mg BIDWM PO 08/29/24 18:00 09/02/24 08:35 325 MG Prednisone 40 mg DAILY PO 08/30/24 10:00 09/02/24 08:36 40 MG Alprazolam 0.25 mg Q8HP PRN PO 08/30/24 15:15 09/01/24 22:07 0.25 MG Doxycycline Hyclate 100 ml @ 50 mls/hr Q12HR@0500,1700 IV 08/30/24 15:15 08/31/24 16:11 50 MLS/HR Albuterol 2.5 mg Q6HWA [facility] 08/31/24 18:00 09/02/24 11:23 2.5 MG Ipratropium [place] 0.5 mg Q6HWA [facility] 08/31/24 18:00 09/02/24 11:23 0.5 MG Clopidogrel Bisulfate 75 mg DAILY PO 09/02/24 10:00 09/02/24 08:35 75 MG Amiodarone HCl 200 mg HS PO 09/01/24 22:00 09/01/24 22:07 200 MG Magnesium Oxide 400 mg DAILY PO 09/02/24 10:00 09/02/24 08:35 400 MG Apixaban 2.5 mg BID PO 09/02/24 22:00 Laboratory Results Laboratory Tests 09/01/24 01:34 Urinalysis Test 08/28/24 21:48 Urine Color Yellow (Yellow) Urine Clarity Clear (Clear) Urine pH 5.5 (5.0-9.0) Urine Specific [place] 1.016 (1.001-1.035) Urine Protein Negative (Negative) Urine Ketones Negative (Negative) Urine Blood Negative /uL (Negative) Urine Nitrite Negative (Negative) Urine Bilirubin Negative (Negative) Urine Urobilinogen Normal mg/dL (Negative) Urine Leukocyte Esterase Negative /uL (Negative) Urine RBC <1 /hpf (0 - 4) Urine Microscopic WBC < 1 /HPF (0-5) Urine Squamous Epithelial Cells Few /hpf (<5) Urine Bacteria None seen /hpf (None Seen) Urine Mucus Few (None Seen) Urine Glucose Normal mg/dL (Normal) Microbiology Microbiology Date/Time Source Procedure Growth Status 08/28/24 19:04 Blood Blood Culture - Preliminary NO GROWTH AFTER 72 HOURS OF INCUBATION. Resulted Labs and/or images reviewed: Labs reviewed by me, Image(s) reviewed by me Assessment/Plan Assessment/Plan Impression: -acute on chronic hypoxic respiratory failure -bronchial pneumonia -COPD with exacerbation -failure of oral antibiotic therapy with azithromycin -history of PPI -tricuspid valve regurgitation -iron-deficiency anemia -primary hypertension -anxiety disorder Plan: Events: Patient had run of paroxysmal atrial fibrillation. Patient now on Eliquis and Plavix with Brilinta and aspirin stopped. -continue O2 supplementation to keep saturation greater than 92% -continue Rocephin. Stop doxycycline given patient after clarification of her receiving the medication in the past, states that she does have an allergy, reporting just general ill feeling while in the hospital. -pain management -anxiolytics -prednisone 40 mg p.o. daily -Pulmicort -bronchodilators -continue beta-nel -iron supplementation -re-evaluate for discharge tomorrow if patient's heart rate remains controlled and breathing continues to improve. Total time spent with patient discussing and formulating plan of care: 35 minutes. This medical document was created using an electronic medical record system with [employer] dictation system. Although this document has been carefully reviewed, there may still be some phonetic and typographical errors. These areas are purely typographical due to imperfections of the software programs, and do not reflect any compromise in the patient's medical care. Plan discussed with: Patient, Other (RN) Date of Service: Sep 02, 2024 Billing Provider: POOL DILLARD NP Common Visit Codes: [id number] INP/OBS CARE(HIGH) POOL DILLARD NP Sep 02, 2024 16:38
[2024-09-02] MEDS: APIXABAN 2.5 MG TAB PO SCH (21:25)
[2024-09-03] VITALS (9 sets, daily range): BP systolic 113–156; BP diastolic 56–83; PULSE 68–85; RESP 17–22; TEMP 97.4–98.4; O2SAT 95–100
--- NOTE | 2024-09-03 08:03 | DVHPN2 ---
Progress Note - Dictate Date Seen: Sep 03, 2024 Medical Necessity Reason Pt with a Central, PICC or Fol: No vital signs Vital Sign Date Time Temp Pulse Resp B/P (MAP) Pulse Ox O2 Delivery O2 Flow Rate FiO2 09/03/24 06:21 71 20 100 09/03/24 06:15 Nasal Cannula* 2 09/03/24 05:00 97.7 153/60 (91) 97.7 Total Intake and Output 09/02/24 09/02/24 09/03/24 15:00 23:00 07:00 Intake Total 50 ml 800 ml 300 ml Output Total 140 ml Balance 50 ml 660 ml 300 ml medications Current Medications Medications Dose Ordered Sig/Romaine Route Start Time Stop Time Status Last Admin Dose Admin Atorvastatin Calcium 40 mg HS PO 08/28/24 22:00 09/02/24 21:24 40 MG Carvedilol 12.5 mg Q12HR PO 08/28/24 22:00 09/02/24 21:25 12.5 MG Furosemide 40 mg DAILY PO 08/29/24 10:00 09/02/24 08:36 40 MG Isosorbide Mononitrate 60 mg DAILY PO 08/29/24 10:00 09/02/24 08:35 60 MG Ranolazine 500 mg BID PO 08/28/24 22:00 09/02/24 21:24 500 MG Ondansetron HCl 4 mg Q4HP PRN IV 08/28/24 20:00 Acetaminophen 650 mg Q6HP PRN PO 08/28/24 20:00 08/28/24 21:14 650 MG Morphine Sulfate 1 mg Q4HPRN PRN IV 08/29/24 10:30 08/31/24 23:41 1 MG Acetaminophen/ Hydrocodone Bitart 1 tab Q6HPRN PRN PO 08/29/24 10:30 09/03/24 05:44 1 TAB Ceftriaxone Sodium 50 ml @ 100 mls/hr DAILY@09 IV 08/29/24 17:15 09/02/24 12:13 100 MLS/HR Ferrous Sulfate 325 mg BIDWM PO 08/29/24 18:00 09/02/24 18:54 325 MG Prednisone 40 mg DAILY PO 08/30/24 10:00 09/02/24 08:36 40 MG Alprazolam 0.25 mg Q8HP PRN PO 08/30/24 15:15 09/03/24 05:44 0.25 MG Ipratropium [place] 0.5 mg Q6HWA NEB 08/31/24 18:00 09/03/24 06:15 0.5 MG Clopidogrel Bisulfate 75 mg DAILY PO 09/02/24 10:00 09/02/24 08:35 75 MG Amiodarone HCl 200 mg HS PO 09/01/24 22:00 09/02/24 21:25 200 MG Magnesium Oxide 400 mg DAILY PO 09/02/24 10:00 09/02/24 08:35 400 MG Apixaban 2.5 mg BID PO 09/02/24 22:00 09/02/24 21:25 2.5 MG laboratory and microbiology Laboratory Tests 09/01/24 01:34 Test 09/01/24 01:34 Range/Units Serum Glucose 99 74-106 mg/dL Assessment/Plan Patient is a 74-year-old female who presented to the hospital with cough, productive and chills. She has been experiencing it for around a month which worsened in the past two weeks. She has received Zithromax as outpatient with no help. Did have greenish productive cough. Is admitted with COPD exacerbation/pneumonia. Cardiology is involved for cardiac aspect of care. Patient is known to our practice from outside. She denies chest discomfort. Cardiac wilcox, she is known to have coronary artery disease, status post CABG and PCI (few years back). She does have pulmonary hypertension and pacemaker. She is known to have closed bypass grafts. In July, she was in the office and the pacemaker was interrogated. Lying comfortably flat in bed. No JVD. pink mucosa. Lungs reveal scattered rhonchi. Cardiac: Regular, no thrills/murmur. Abdomen is soft. No hepatomegaly. Bowel sounds positive. Lower extremities do not reveal edema. Dorsalis pedis is 2+ bilateral Past medical history includes diabetes mellitus, hyperlipidemia, hypertension, diastolic heart failure, peripheral artery disease, GERD, anxiety, anemia, asthma, coronary artery disease, status post CABG and PCI, status post pacemaker implantation ([employer]), status post old CVA, COPD on home oxygen, fibromyalgia, pulmonary hypertension, history of poor functional status, history of GI bleeding, pulmonary fibrosis, hiatal hernia, ex-smoker, status post gold cholecystectomy/hysterectomy. Is known to have closed grafts for CABG. Has had high risk PCI/left main in [facility] (few years back). Does have history of abnormal nuclear stress test and the plan has been to manage her medically. She was kept on Aspirin and Brilinta previously. She is ex-smoker. Echocardiogram of January 09, 2023 revealed LVEF of 55 to 60%, mild concentric left ventricular hypertrophy, no wall motion abnormality, mild biatrial enlargement, pacing wire in right-sided chambers, mild to moderate aortic insufficiency, mild mitral regurgitation, mild to moderate tricuspid regurgitation and right ventricular systolic pressure of 35 mmHg Echocardiogram of March 07, 2023 had revealed ejection fraction of 55 to 60%, mild concentric left ventricular hypertrophy, mild AI/MR/PI, mild biatrial enlargement, pacemaker wire in the right-sided chambers and right ventricular systolic pressure of 34 mmHg Echocardiogram of September 06, 2023 revealed ejection fraction of 55% and pacemaker in right-sided chambers Echocardiogram of December 26, 2023 had reported ejection fraction of 55-60%, no wall motion abnormality, [id number] aortic insufficiency, mild MR, moderate TR and right ventricular systolic pressure 42 mm Hg Hemoglobin: 9.2 - 9.8 - 10.3 Creatinine: 0.78 - 0.63 - 0.87 - 0.89 Potassium: 3.8 - 4.1 - 3.3 - 3.8 Troponin (sinus rhythm): 5 BNP: 209.56 TSH: 0.27 Chest x-ray revealed: IMPRESSION: 1. Pacemaker in place unchanged 2. Bilateral perihilar peribronchial thickening findings may represent bronchitis. 3. Cardiac size is stable. Telemetry reveals sinus rhythm and occasions of paced rhythm. Later had A- flutter with RVR, spontaneous conversion to NSR Echocardiogram reported: Left ventricle: Mild concentric left ventricular hypertrophy was seen. LV EF was 55-60%. There was no gross wall motion abnormality. Right ventricle was normal sized with normal systolic function. Both atria were mildly dilated. Pacing wire was seen in the right-sided chambers. Aortic valve: Aortic valve was not well visualized. There was mild aortic insufficiency. There was no aortic stenosis. There was mild mitral regurgitation. There was moderate tricuspid regurgitation. Pulmonary valve was not well visualized. Right ventricular systolic pressure was assessed at 41 mm Hg. There was no pericardial effusion. Patient is a 74-year-old female who presented with shortness of breath and productive cough. Presentation is in favor of pneumonia/COPD exacerbation. Acute coronary syndrome is not considered. Patient does have pacemaker which has been interrogated recently. High sensitive troponin has been negative. EKG has been nonrevealing. Cardiac etiology for presentation is less likely. COPD exacerbation Pneumonia Pulmonary fibrosis Pulmonary hypertension Chronic diastolic heart failure Status post pacemaker Hypokalemia Paroxysmal atrial flutter with RVR, new onset Cardiac suggestions for management: Manage on telemetry Continuation of Statin/Ranexa/Imdur suggested Follow-up electrolytes and kidney function and correct abnormalities, keep potassium above 4 magnesium above 2 Full anti-coagulation for CVA prophylaxis is advised given new onset PAF in presence of elevated CHADSVASc score On Eliquis Off Aspirin and Brilinta Plavix 75mg daily given previous PCI Amiodarone 200mg qhs for now Carvedilol 12.5mg twice daily Evaluation and management of pneumonia/COPD exacerbation as per primary team/Pulmonary Cardiac wilcox is stable and can be followed as outpatient Further evaluation and management depends on the above and clinical course A total of 55 minutes was spent reviewing the patient record, examining the patient, making a diagnostic and therapeutic plan, discussing this plan with medical personnel, following up on diagnostic studies and following the patient for clinical stability excluding any and all procedures. At least 50% of this time was spent in direct, [id number] contact. Thank you for allowing me to participate in this patient's care. Further recommendations will depend on patient's clinical course. Please do not hesitate to contact me if you have any questions or concerns. This medical document was created using electronic medical record system with [employer] computerized dictation system. Although this document has been carefully reviewed, there may still be some phonetic and typographical errors. These areas are purely typographical due to the imperfection of the software programs, and do not reflect any compromise in the patient's medical care. Plan discussed with: Patient, Other (nurse) AJAY SMALLWOOD MD Sep 03, 2024 08:03
--- NOTE | 2024-09-03 11:57 | DVHDS2 ---
Discharge Summary Date of Admission Aug 28, 2024 at 19:57 Date of Discharge: Sep 03, 2024 Admitting Diagnosis Acute on chronic respiratory failure Labs/Diagnostic Data: Laboratory Results Test 09/01/24 01:34 08/28/24 21:48 08/28/24 20:15 08/28/24 19:04 White Blood Count 7.4 10^3/uL (4.4-10.8) Red Blood Count 3.33 10^6/uL (4.0-5.20) Hemoglobin 10.3 g/dL (12.2-16.2) Hematocrit 31.2 % (36.0-46.0) Mean Corpuscular Volume 93.6 fL (80.0-100.0) Mean Corpuscular Hemoglobin 30.9 pg (28.0-32.0) Mean Corpuscular Hemoglobin Concent 33.0 g/dL (32.0-36.0) Red Cell Distribution Width 16.4 % (11.8-14.3) Platelet Count 245 10^3/uL (140-450) Mean Platelet Volume 7.4 fL (6.9-10.8) Neutrophils (%) (Auto) 85.9 % (37.0-80.0) Lymphocytes (%) (Auto) 6.5 % (10.0-50.0) Monocytes (%) (Auto) 7.2 % (0.0-12.0) Eosinophils (%) (Auto) 0.1 % (0.0-7.0) Basophils (%) (Auto) 0.3 % (0.0-2.0) Neutrophils # (Auto) 6.4 10 ^3/uL (1.6-8.6) Lymphocytes # (Auto) 0.5 10 ^3/uL (0.4-5.4) Monocytes # (Auto) 0.5 10 ^3/uL (0-1.3) Eosinophils # (Auto) 0 10 ^3/uL (0-0.8) Basophils # (Auto) 0 10 ^3/uL (0-0.2) Nucleated Red Blood Cells 0.0 % Sodium Level 138 mmol/L (136-145) Potassium Level 3.8 mmol/L (3.5-5.1) Chloride Level 101 mmol/L (98-107) Carbon Dioxide Level 30 mmol/L (20-31) Anion Gap 7 (5-15) Blood Urea Nitrogen 27 mg/dL (9-23) Creatinine 0.89 mg/dL (0.550-1.02) Glomerular Filtration Rate Calc 68 mL/min (>90) BUN/Creatinine Ratio 30.3 (10.0-20.0) Serum Glucose 99 mg/dL (74-106) Calcium Level 9.7 mg/dL (8.7-10.4) Magnesium Level 1.8 mg/dL (1.6-2.6) Thyroid Stimulating Hormone (TSH) 0.27 uIU/mL (0.55-4.78) Urine Color Yellow (Yellow) Urine Clarity Clear (Clear) Urine pH 5.5 (5.0-9.0) Urine Specific [place] 1.016 (1.001-1.035) Urine Protein Negative (Negative) Urine Ketones Negative (Negative) Urine Blood Negative /uL (Negative) Urine Nitrite Negative (Negative) Urine Bilirubin Negative (Negative) Urine Urobilinogen Normal mg/dL (Negative) Urine Leukocyte Esterase Negative /uL (Negative) Urine RBC <1 /hpf (0 - 4) Urine Microscopic WBC < 1 /HPF (0-5) Urine Squamous Epithelial Cells Few /hpf (<5) Urine Bacteria None seen /hpf (None Seen) Urine Mucus Few (None Seen) Urine Glucose Normal mg/dL (Normal) Influenza Type A Antigen Negative (Negative) Influenza Type B Antigen Negative (Negative) SARS-CoV-2 Antigen (Rapid) Negative (NEGATIVE) Lactic Acid Level 1.2 mmol/L (0.4-2.0) Troponin I High Sensitivity 5 ng/L (</=34) B-Type Natriuretic Peptide 209.56 pg/mL (0-100) Other Laboratory Tests 09/01/24 01:34 Brief Hx & Hospital Course: History of Present Illness 74-year-old female with a history of COPD presents for evaluation of shortness for breath. Patient reports a two week history of worsening shortness for breath associated productive cough with green phlegm. Patient reports intermittent chills. Denies nausea or vomiting. No chest pain or palpitations. No other acute complaints reported. Course of hospitalization: Chest x-ray was found to be positive for questionable bronchopneumonia. Patient was phlegm has resolved. Her respiratory status has improved. She received antibiotic therapy, bronchodilators, inhaled corticosteroids while in the hospital. While in the hospital she did have a run of paroxysmal atrial fibrillation. 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 Martinez was consulted who change the patient's blood thinners to Eliquis and Plavix, from Brilinta and aspirin. Patient was agreeable to be discharged home and continue all home medications except Brilinta and aspirin. She will be continued on Eliquis 2.5 mg p.o. b.i.d., Plavix 75 mg p.o. daily, as well as cefdinir 300 mg p.o. b.i.d. x5 days. She was instructed to follow up with her PCP in 1-2 weeks. All questions answered. Physical examination General: Alert and Oriented x3. No acute distress. Well-nourished. Eyes: EOMI. Anicteric. HENT: Moist mucous membranes. Lungs: Clear to auscultation bilaterally. No accessory muscle use. Cardiovascular: Regular rate and rhythm. No murmur. No JVD. Abdomen: Soft, non-tender and non-distended. No palpable masses. Extremities: No edema. Non-tender. Skin: No rashes or lesions. Warm. Neurologic: No focal neurological deficits. CN II-XII grossly intact, but not individually tested. Psychiatric: Cooperative. Appropriate mood and affect. Total time spent with patient discussing and formulating plan of care: 35 minutes. This medical document was created using an electronic medical record system with [employer] dictation system. Although this document has been carefully reviewed, there may still be some phonetic and typographical errors. These areas are purely typographical due to imperfections of the software programs, and do not reflect any compromise in the patient's medical care. Consults/Reason for consult Cardiology: Paroxysmal atrial fibrillation Condition at Discharge: Fair Final Diagnosis/Problems List Acute on chronic respiratory failure Secondary Diagnosis: -acute on chronic hypoxic respiratory failure -bronchial pneumonia, probable Gram-positive/Gram-negative etiology -COPD with exacerbation -failure of oral antibiotic therapy with azithromycin -history of PPI -tricuspid valve regurgitation -iron-deficiency anemia -primary hypertension -anxiety disorder Discharge Disposition: Home Discharge Instruct/Medications Diet: Cardiac 2g Na,low cholest Activity: No Restrictions, As Tolerated Follow Up/Referral: Follow up with PCP in 1-2 weeks Medications: Stop Brilinta and aspirin. Eliquis 2.5 mg p.o. b.i.d. Plavix 75 mg p.o. daily Cefdinir 300 mg p.o. b.i.d. x5 days 36 Discharge Statement: "Patient was advised to return to the ER or call 911 if any headaches, dizziness, shortness of breath, chest pain, abdominal pain, bleeding, fevers, or worsening of medical condition. Patient was counseled about treatment plan, medications, possible side effects, patientverbalized understanding. All questions were answered to the best of my ability. This discharge took greater then 30 minutes in planning, reviewing documentation, counseling the patient, and discussing with other team members." ASSESSMENT ASSESSMENT Assessment Acute on chronic respiratory failure Date of Service: Sep 03, 2024 Billing Provider: POOL DILLARD NP Common Visit Codes: 04920-RKB/OBS DISCH DAY >30min POOL DILLARD NP Sep 03, 2024 11:57
[2024-09-04] MEDS ORDERED: CLOP75TA28 PO (11:56)
[2024-09-04] MEDS ORDERED: APIX2.5T PO (11:56)
[2024-09-04] MEDS ORDERED: CEFD300C2 PO (13:12)
== END 2024-09-03 15:00 | disposition home or self-care (01) | DRG 177 ==
LOC: EDBD 18:11 → ER 18:20 → OVERFLOW 19:57 → WEST WING 19:57 → TELE-WESTW 08-30 23:36
PROVIDERS: ADMIT Family Medicine; ATTEND Nurse Practitioner Acute Care
DX: J15.69 Pneumonia due to other Gram-negative bacteria (principal); J96.21 Acute and chronic respiratory failure with hypoxia; J44.1 Chronic obstructive pulmonary disease with (acute) exacerbation; I48.92 Unspecified atrial flutter; I50.32 Chronic diastolic (congestive) heart failure; J44.0 Chronic obstructive pulmonary disease with (acute) lower respiratory infection; J20.9 Acute bronchitis, unspecified; I11.0 Hypertensive heart disease with heart failure; D50.9 Iron deficiency anemia, unspecified; E87.6 Hypokalemia; Z20.822 Contact with and (suspected) exposure to COVID-19; F41.9 Anxiety disorder, unspecified; I07.1 Rheumatic tricuspid insufficiency; I27.20 Pulmonary hypertension, unspecified; I48.0 Paroxysmal atrial fibrillation; J84.10 Pulmonary fibrosis, unspecified; K21.9 Gastro-esophageal reflux disease without esophagitis; J15.9 Unspecified bacterial pneumonia; Z80.1 Family history of malignant neoplasm of trachea, bronchus and lung; Z79.899 Other long term (current) drug therapy; Z95.1 Presence of aortocoronary bypass graft; Z79.82 Long term (current) use of aspirin; Z79.01 Long term (current) use of anticoagulants; Z79.02 Long term (current) use of antithrombotics/antiplatelets; Z86.73 Personal history of transient ischemic attack (TIA), and cerebral infarction without residual deficits; Z99.81 Dependence on supplemental oxygen; Z95.0 Presence of cardiac pacemaker; Z90.710 Acquired absence of both cervix and uterus; Z90.49 Acquired absence of other specified parts of digestive tract; Z87.891 Personal history of nicotine dependence; Z98.61 Coronary angioplasty status; Z88.1 Allergy status to other antibiotic agents; Z88.0 Allergy status to penicillin
CPT/HCPCS: 36415; 71045; 80048; 81001; 83605; 83735; 83880; 84443; 84484; 85025; 87040; 87426; 87804; 93005; 93306; 94640; 99291; G0378; J1885

== ENCOUNTER → 2024-09-26 | Outpatient (CLI) | payer MEDICARE, MEDICAID ==
[~2024-09-26] MED LIST changes: +APIX2.5T PO; +CEFD300C2 PO; +CLOP75TA28 PO
[2024-09-26 10:15] LABS: Basophils # (auto) 0 10 ^3/uL (0-0.2); Basophils % (auto) 0.6 % (0.0-2.0); Eosinophils # (auto) 0.3 10 ^3/uL (0-0.8); Eosinophils % (auto) 3.8 % (0.0-7.0); Hematocrit 33.3 % (36.0-46.0); Hemoglobin 10.9 g/dL (12.2-16.2); Lymphocytes # (auto) 0.5 10 ^3/uL (0.4-5.4); Lymphocytes % (auto) 7.3 % (10.0-50.0); Mean Corpuscular Hemoglobin 30.3 pg (28.0-32.0); Mean Corpuscular Hgb Conc. 32.7 g/dL (32.0-36.0); Mean Corpuscular Volume 92.7 fL (80.0-100.0); Monocytes # (auto) 0.5 10 ^3/uL (0-1.3); Monocytes % (auto) 7.1 % (0.0-12.0); Neutrophils % (auto) 81.2 % (37.0-80.0); Platelet Count (auto) 224 10^3/uL (140-450); Red Blood Cells 3.59 10^6/uL (4.0-5.20); Red Cell Distribution Width 15.2 % (11.8-14.3); White Blood Cell 7.4 10^3/uL (4.4-10.8)
[2024-09-26 10:44] LABS: Alanine Aminotransferase 14 U/L (7-40); Albumin 4.4 g/dL (3.2-4.8); Alkaline Phosphatase 92 U/L (46-116); Anion Gap 9 (5-15); Aspartate Aminotransferase 16 U/L (13-40); BUN/Creatinine Ratio 11.3 (10.0-20.0); Bilirubin, Direct 0.2 mg/dL (<0.3); Calcium 9.6 mg/dL (8.7-10.4); Carbon Dioxide 27 mmol/L (20-31); Chloride 106 mmol/L (98-107); Cholesterol 106 mg/dL (< 200); Glucose 101 mg/dL (74-106); LDL Cholesterol 33 mg/dL (< 100); Sodium 142 mmol/L (136-145); Triglycerides 94 mg/dL (< 150)
[2024-09-26 10:45] LABS: Bilirubin, Total 0.4 mg/dL (0.2-1.0); Total Protein 6.3 g/dL (5.7-8.2)
[2024-09-26 10:59] LABS: Blood Urea Nitrogen 7 mg/dL (9-23); HDL Cholesterol 61 mg/dL (40-59)
== END | disposition home or self-care (01) ==
LOC: LAB 09:53
PROVIDERS: ATTEND Specialist
DX: I11.0 Hypertensive heart disease with heart failure (principal); I50.9 Heart failure, unspecified; E11.9 Type 2 diabetes mellitus without complications; E78.5 Hyperlipidemia, unspecified; E03.9 Hypothyroidism, unspecified; D64.9 Anemia, unspecified; R68.89 Other general symptoms and signs
CPT/HCPCS: 36415; 80053; 80061; 82248; 84443; 85025

== ENCOUNTER → 2024-12-26 | Outpatient (CLI) | payer MEDICARE, MEDICAID ==
[2024-12-26 10:10] LABS: Basophils # (auto) 0 10 ^3/uL (0-0.2); Basophils % (auto) 0.4 % (0.0-2.0); Eosinophils # (auto) 0.4 10 ^3/uL (0-0.8); Eosinophils % (auto) 4.4 % (0.0-7.0); Hematocrit 23.6 % (36.0-46.0); Hemoglobin 7.9 g/dL (12.2-16.2); Lymphocytes # (auto) 0.6 10 ^3/uL (0.4-5.4); Lymphocytes % (auto) 6.1 % (10.0-50.0); Mean Corpuscular Hemoglobin 30.2 pg (28.0-32.0); Mean Corpuscular Hgb Conc. 33.4 g/dL (32.0-36.0); Mean Corpuscular Volume 90.4 fL (80.0-100.0); Monocytes # (auto) 0.7 10 ^3/uL (0-1.3); Monocytes % (auto) 6.7 % (0.0-12.0); Neutrophils # (auto) 8.2 10 ^3/uL (1.6-8.6); Neutrophils % (auto) 82.4 % (37.0-80.0); Platelet Count (auto) 280 10^3/uL (140-450); Red Blood Cells 2.62 10^6/uL (4.0-5.20); Red Cell Distribution Width 17.3 % (11.8-14.3)
[2024-12-26 10:50] LABS: Alanine Aminotransferase 38 U/L (7-40); Albumin 4.5 g/dL (3.2-4.8); Anion Gap 11 (5-15); Aspartate Aminotransferase 31 U/L (13-40); BUN/Creatinine Ratio 15.2 (10.0-20.0); Bilirubin, Direct 0.2 mg/dL (<0.3); Blood Urea Nitrogen 12 mg/dL (9-23); Calcium 9.8 mg/dL (8.7-10.4); Carbon Dioxide 23 mmol/L (20-31); Chloride 106 mmol/L (98-107); Cholesterol 109 mg/dL (< 200); Glucose 103 mg/dL (74-106); HDL Cholesterol 45 mg/dL (40-59); LDL Cholesterol 55 mg/dL (< 100); Potassium 4.6 mmol/L (3.5-5.1); Sodium 140 mmol/L (136-145); Total Protein 6.4 g/dL (5.7-8.2); Triglycerides 118 mg/dL (< 150)
[2024-12-26 10:51] LABS: Bilirubin, Total 0.4 mg/dL (0.2-1.0)
[2024-12-26 11:05] LABS: Alkaline Phosphatase 117 U/L (46-116)
== END | disposition home or self-care (01) ==
LOC: LAB 09:19
PROVIDERS: ATTEND Specialist
DX: I10 Essential (primary) hypertension (principal); E11.9 Type 2 diabetes mellitus without complications; E78.5 Hyperlipidemia, unspecified; D64.9 Anemia, unspecified; R68.89 Other general symptoms and signs
CPT/HCPCS: 36415; 80048; 80061; 80076; 83036; 84443; 85025

== ENCOUNTER 2025-01-09 13:30 | Inpatient (IN) | payer MEDICARE, MEDICAID ==
[~2025-01-09] VITALS: Ht 160 cm; Wt 66.4 kg
--- NOTE | 2025-01-09 13:57 | ED.PDOC ---
HPI Comments This is a 74 year old female CATHERINE presenting to the ED with chief complaint of chest pain. Patient reports that she has been experiencing 7/10 left sided chest pain since Monday with associated left arm pain. Patient relays that she took NTG at home with some relief noted. Patient states she is on 3L of O2 at home due to COPD. Patient notes that she avoided taking aspirin today due to having some dark colored stools today. Patient denies any SOB, dizziness, headache, N/V/D, abdominal pain, or numbness/tingling/weakness of extremities. Patient noted to have extensive cardiac history with multiple CABGs, STEMI, and stents. Time Seen by MD: 13:50 Primary Care Provider: SOLE Reviewed Notes: Nurses Notes, [place] Notes, Medications, Allergies Allergies: Coded Allergies: Nitrofurantoin (Verified Allergy, Severe, 04/05/22) Amoxicillin (Verified Allergy, Mild, 09/07/23) 09/07/23: DIRECTOR OF DIRECT MARKETINGJOHANNA, SPOKE WITH PATIENT. SHE POSSIBLY RECALLS TAKING AMOXICILLIN BEFORE, DENIES ANY RASHES, ITCHINESS, S/SX OF ANAPHYLAXIS. Ciprofloxacin (Verified Allergy, Mild, 09/07/23) 09/07/23: DIRECTOR OF DIRECT MARKETINGJOHANNA, SPOKE WITH PATIENT. SHE MENTIONED LAST TIME SHE RECIEVED CIPRO INJECTION WAS A WHILE AGO. PATIENT ENDORSED SMALL BUMPS ON THE SKIN BUT PER PATIENT COULD HAVE BEEN DUE TO FAST INJECTION. HAS TAKEN LEVAQUIN PO BEFORE AND DENIES ANY RASH, ITCHINESS, S/SX OF ANAPHYLAXIS. Doxycycline (Verified Allergy, Unknown, "I get really sick", 09/01/24) Patient verbalizes that she "get really sick" in when receiving doxycycline in the past. When asked about specific symptoms in the past, she verbalizes not remembering. Home Meds Active Scripts Cefdinir (Cefdinir) 300 Mg Cap, 1 CAP PO BID for 7 Days, #14 CAP Prov:[address] LIGHT LAMP CLEANER 09/04/24 Apixaban Base (ELIQUIS) 2.5 Mg Tab, 2.5 MG PO BID for 30 Days, #60 TAB 3 Refills Prov:POOL [address] L[employer] LAMP CLEANER 09/04/24 Clopidogrel Bisulfate (Plavix) 75 Mg Tab, 1 TAB PO DAILY for 30 Days, #30 TAB 3 Refills Prov:POOL [address] LIGHT LAMP CLEANER 09/04/24 Ondansetron Odt 4MG Tab (ZOFRAN PO) 4 Mg Tb, 4 MG PO Q8HR PRN, #14 TAB ODT TAB-DISSOLVE IN MOUTH, THEN SWALLOW Prov:VITO SCHUSTER MD 07/08/23 Reported Medications Ferrous Sulfate (Ferosul) 325 Mg Tab, 1 TAB PO BID for 30 Days, #60 06/12/24 Dicyclomine Hcl (BENTYL CAPSULE) 10 Mg Cp, 1 CAP PO QID PRN for 5 Days, #20 06/12/24 Isosorbide Mononitrate (Isosorbide Mononitrate Er) 60 Mg Tab, 1 TAB PO DAILY for 90 Days, #90 06/12/24 Rwtmbedscyr-Uzaczabrslxu-Cgjrt (Trelegy Ellipta 200-62.5-25 Mcg/INH) 1 Aer Aer, 1 PUFF IN DAILY for 30 Days, #60 06/12/24 Carvedilol (Carvedilol) 25 Mg Tab, 1 TAB PO TID for 30 Days, #90 02/22/24 Albuterol Sulfate (Albuterol Sulfate Hfa) 108 Mcg/Act Aer, 1 PUFF INH QID 12/26/23 Tramadol Hcl (Tramadol Hcl) 50 Mg Tab, 50 MG PO BID PRN for PAIN SCALE 1 THRU 6, MG 10/11/23 Mbyqbvqxxtg-Zzpwswpnahj-Yez C- (Glucosamine Chondroitin) Tab, 1500 MG PO BID, TAB 10/11/23 Cholecalciferol (VITAMIN D3) 2,000 Unit Tab, 50 MCG PO DAILY, #30 TAB 5 Refills 10/11/23 Zinc Sulfate (Zinc Sulfate) 220 Mg Cap, 50 MG PO DAILY for 30 Days, MG 10/11/23 Ascorbic Acid (VITAMIN C TABLET) 500 Mg Tb, 2000 MG PO DAILY, #30 TAB 3 Refills 10/11/23 Nitroglycerin (Nitroglycerin Lingual) 0.4 Mg/[place] Spr, 0.4 MG TL BID PRN for F OR CHEST PAIN, SPR 10/11/23 Magnesium Oxide (MAGNESIUM OXIDE) 400 Mg Tab, 1 TAB PO DAILY for 30 Days, #30 10/11/23 Evolocumab (Repatha) 140 Mg/Ml Inj, 1 ML SC Q2WEEK for 56 Days, #14 INJECT 1 ML SUBCUTANEOUSLY EVERY 2 WEEKS. 09/07/23 Aspirin (Aspir-81) 81 Mg Tab, 1 TAB PO DAILY, #30 TAB 5 Refills 07/01/22 Potassium Chloride (K-Tabs) 10 Meq Tab, 1 TAB.CHEW PO DAILY 07/01/22 Pantoprazole Sodium Sesquihydr (Pantoprazole Sodium) 40 Mg Tab, 1 TAB PO DAILY for 30 Days, #30 07/01/22 Ranolazine (Ranolazine ER) 500 Mg Tab, 1 TAB PO BID for 30 Days, #60 07/01/22 Furosemide (Furosemide) 40 Mg Tab, 1 TAB PO DAILY for 90 Days, #90 07/01/22 Atorvastatin Calcium (ATORVASTATIN CALCIUM) 40 Mg Tab, 1 TAB PO HS for 30 Days, #30 07/01/22 Montelukast Sodium (MONTELUKAST SODIUM) 10 Mg Tab, 1 TAB PO DAILY for 30 Days, #30 07/01/22 Ticagrelor Base (BRILINTA) 90 Mg Tab, 1 TAB PO BID for 30 Days, #60 07/01/22 Information Source: Patient, Emergency Med Personnel Mode of Arrival: EMS Severity: Moderate Timing: Days Duration: Since onset Prehospital treatment: NTG, Oxygen Location: Chest (L) Radiation: Arm (L) Quality: Sharp Onset: At Rest Cardiac Risk Factors: Hyperlipidemia, HTN PE Risk Factors: None History of: Similar pain in past, AZ, Valve Disease, Aspirin Past Medical History PAST MEDICAL HISTORY: Anemia, Asthma, CHF, COPD, CVA, DM, GERD, High Lipids, HTN, AZ Surgical History: CABG, Cholecystectomy, Hysterectomy, Pacemaker, PTCA, Tonsillectomy Surgical History (Other): Cataract surgery, right arm surgery STRIPPER APPRENTICE History: No Pertinent STRIPPER APPRENTICE History, Ovarian Cysts Family History Family History: Reviewed,noncontributory to illness, Family hx of DM, Family hx of Cancer, Family hx of heart fran Social History Smoker: Quit Greater Than 1 Year Alcohol: Denies ETOH Use Drugs: Denies Drug Use Lives In: Home Constitutional: denies: chills, diaphoresis, fatigue, fever, malaise, sweats, weakness, others EENTM: denies: blurred vision, double vision, ear bleeding, ear discharge, ear drainage, ear pain, ear ringing, eye pain, eye redness, hearing loss, mouth pain, mouth swelling, nasal discharge, nose bleeding, nose congestion, nose pain, photophobia, tearing, throat pain, throat swelling, voice changes, others Respiratory: denies: cough, hemoptysis, orthopnea, SOB at rest, shortness of breath, SOB with excertion, stridor, wheezing, others Cardiovascular: reports: chest pain, left arm pain; denies: dizzy spells, diaphoresis, Dyspnea on exertion, edema, irregular heart beat, lightheadedness, palpitations, PND, syncope, others Gastrointestinal: denies: abdomen distended, abdominal pain, blood streaked bowels, constipated, diarrhea, dysphagia, difficulty swallowing, hematemesis, melena, nausea, poor appetite, poor fluid intake, rectal bleeding, rectal pain, vomiting, others Genitourinary: denies: abnormal vagina bleeding, burning, dyspareunia, dysuria, flank pain, frequency, hematuria, incontinence, pain, , vagina discharge, urgency, others Neurological: denies: dizziness, fainting, headache, left sided numbness, left sided weakness, numbness, paresthesia, pre-existing deficit, right sided numbness, right sided weakness, seizure, speech problems, tingling, tremors, weakness, others Musculoskeletal: denies: back pain, gout, joint pain, joint swelling, muscle pain, muscle stiffness, neck pain, others Integumetry: denies: bruises, change in color, change in hair/nails, dryness, laceration, lesions, lumps, rash, wounds, others Allergic/Immunocompromised: denies: Difficulty Healing, Frequent Infections, Hives, Itching, others Hematologic/Lymphatic: denies: anemia, blood clots, easy bleeding, easy bruising, swollen glands, others Endocrine: denies: excessive hunger, excessive sweating, excessive thirst, excessive urination, flushing, intolerance to cold, intolerance to heat, unexplained weight gain, unexplained weight loss, others Psychiatric: denies: anxiety, bipolar disorder, depression, hopeless, panic disorder, schizophrenia, sleepless, suicidal, others All Other Systems: Reviewed and Negative Physical Exam General Appearance: Moderate Distress HEENT: Normal ENT Inspection, Pharynx Normal, TMs Normal Neck: Full Range of Motion, Non-Tender, Normal, Normal Inspection Respiratory: Chest Non-Tender, Lungs Clear, No Accessory Muscle Use, No Respiratory Distress, Normal Breath Sounds Cardiovascular: No Edema, No JVD, No Murmur, No Gallop, Other (Pacemaker in place) Breast Exam: Deferred Gastrointestinal: No Organomegaly, Non Tender, No Pulsatile Mass, Normal Bowel Sounds, Soft Genitalia: Deferred Pelvic: Deferred Rectal: Deferred Extremities: No calf tenderness, Normal capillary refill, Normal inspection, Normal range of motion, Non-tender, No pedal edema Musculoskeletal : Apperance: Normal Neurologic: Alert, biomass technician II-XII nml as Tested, Motor Weakness, Normal Affect, Normal Mood, No Sensory Deficits Cerebellar Function: Normal Reflexes: Normal Skin: Dry, Normal Color, Warm Lymphatic: No Adenopathy EKG EKG : Pulse Rate (adult): 78 [place]: Normal Cardiac Rhythm: Paced Block: None Hypertrophy: None ST: Normal Was a procedure done? Was a procedure done?: No CP Differential Dx Differential Diagnosis: Angina, Electrolyte Disorder, [place], Pulmonary Embolus, PVC's Differential Diagnosis: CHF X-Ray, Labs, Meds, VS Vital Signs Date Time Temp Pulse Resp B/P (MAP) Pulse Ox O2 Delivery O2 Flow Rate FiO2 01/09/25 20:25 70 20 114/52 01/09/25 19:20 97.9 74 20 123/56 (78) 99 97.9 01/09/25 19:00 70 16 135/49 (77) 99 01/09/25 18:00 70 13 129/54 01/09/25 17:30 76 23 123/49 01/09/25 17:24 78 18 96 Nasal Cannula* 3 32 01/09/25 17:00 73 17 121/52 (75) 100 01/09/25 16:39 100 Nasal Cannula* 2 28 01/09/25 15:00 97.7 71 18 119/54 (75) 100 97.7 01/09/25 14:54 98.2 68 19 133/64 (87) 99 98.2 01/09/25 14:54 68 19 99 Nasal Cannula 3.0 01/09/25 14:45 71 01/09/25 14:00 98.3 94 16 100 98.3 01/09/25 13:57 78 01/09/25 13:33 78 Lab Test 01/09/25 16:45 01/09/25 14:49 01/09/25 14:48 01/09/25 13:52 Range/Units Troponin I High Sensitivity 4 4 4 </=34 ng/L Urine Color Yellow Yellow Urine Clarity Clear Clear Urine pH 6.5 5.0-9.0 Urine Specific [place] 1.023 1.001-1.035 Urine Protein Negative Negative Urine Ketones Negative Negative Urine Blood Negative Negative /uL Urine Nitrite Negative Negative Urine Bilirubin Negative Negative Urine Urobilinogen Normal Negative mg/dL Urine Leukocyte Esterase Negative Negative /uL Urine RBC 2 0 - 4 /hpf Urine Microscopic WBC 2 0-5 /HPF Urine Squamous Epithelial Cells Few <5 /hpf Urine Bacteria None seen None Seen /hpf Urine Mucus Few None Seen Urine Glucose Normal Normal mg/dL White Blood Count 4.9 4.4-10.8 10^3/uL Red Blood Count 2.86 L 4.0-5.20 10^6/uL Hemoglobin 8.7 L 12.2-16.2 g/dL Hematocrit 27.0 L 36.0-46.0 % Mean Corpuscular Volume 94.6 80.0-100.0 fL Mean Corpuscular Hemoglobin 30.4 28.0-32.0 pg Mean Corpuscular Hemoglobin Concent 32.1 32.0-36.0 g/dL Red Cell Distribution Width 20.8 H 11.8-14.3 % Platelet Count 227 140-450 10^3/uL Mean Platelet Volume 7.2 6.9-10.8 fL Neutrophils (%) (Auto) 74.4 37.0-80.0 % Lymphocytes (%) (Auto) 11.4 10.0-50.0 % Monocytes (%) (Auto) 8.2 0.0-12.0 % Eosinophils (%) (Auto) 5.0 0.0-7.0 % Basophils (%) (Auto) 1.0 0.0-2.0 % Neutrophils # (Auto) 3.7 1.6-8.6 10 ^3/uL Lymphocytes # (Auto) 0.6 0.4-5.4 10 ^3/uL Monocytes # (Auto) 0.4 0-1.3 10 ^3/uL Eosinophils # (Auto) 0.2 0-0.8 10 ^3/uL Basophils # (Auto) 0 0-0.2 10 ^3/uL Nucleated Red Blood Cells 0.1 % Sodium Level 146 H 136-145 mmol/L Potassium Level 4.1 3.5-5.1 mmol/L Chloride Level 109 H 98-107 mmol/L Carbon Dioxide Level 29 20-31 mmol/L Anion Gap 8 5-15 Blood Urea Nitrogen 9 9-23 mg/dL Creatinine 0.70 0.550-1.02 mg/dL Glomerular Filtration Rate Calc 90 >90 mL/min BUN/Creatinine Ratio 12.9 10.0-20.0 Serum Glucose 103 74-106 mg/dL Calcium Level 8.9 8.7-10.4 mg/dL B-Type Natriuretic Peptide 354.00 0-100 pg/mL Current Medications Medications (Trade) Dose Ordered Sig/Romaine Route Start Time Stop Time Status Last Admin Aspirin 162 mg ONCE ONCE PO 01/09/25 13:45 01/09/25 13:46 DC 01/09/25 14:48 Morphine Sulfate 4 mg ONCE ONCE IV 01/09/25 17:30 01/09/25 17:31 DC 01/09/25 17:30 Ondansetron HCl (Zofran) 4 mg ONCE ONCE IV 01/09/25 17:30 01/09/25 17:31 DC 01/09/25 17:42 Hydromorphone HCl (Dilaudid Injection) 0.5 mg ONCE ONCE IV 01/09/25 20:15 01/09/25 20:16 DC 01/09/25 20:25 IV Hep-Lock was established The patient was given aspirin 162 mg by mouth The patient was given morphine 4 mg IV push for the pain and Zofran 4 mg IV push for the nausea The patient's CBC shows anemia with a hemoglobin of 8.7 and hematocrit push his low as well at 27 At this time, the patient is being admitted to the hospitalist The troponin level x3 is within normal limits The patient is being admitted at this time The patient is having more chest pain so was given Dilaudid 0.5 mg IV push The patient understands and agrees with the management A cardiology consult will be obtained. Images Reviewed?: Images reviewed and evaluated by me Time of 1ST Reevaluation: 20:22 Reevaluation 1ST: Unchanged Patient Education/Counseling: Diagnosis, Treatment, Prognosis Family Education/Counseling: No Family Present Additional Information Reviewed patient's previous visit(s): 08/28/24 for acute on chronic respiratory failure The following tests were ordered, and results were reviewed by me: EKG, CBC, BMP, Troponin, UA, BNP, Chest XR Additional information was gathered from interviewing the following independent historian: EMS I reviewed and agreed with the following test results read by other provider: Chest XR I discussed treatments and results with medical personnel and: Patient Comprehensive systems review obtained and negative except for what is stated in the HPI. Departure 1 Departure Time of Disposition: 20:22 Impression: Primary Impression: Symptomatic anemia Additional Impression: Acute myocardial ischemia Disposition: ADMITTED INPATIENT Admit to: Tele Condition: Fair Critical Care Note Critical Care Time?: Yes (45 min-critical care time only) Stability Stability form required: Yes Unstable for transfer: Telemetry monitoring (Telemetry monitoring required), ED Physician Assesment (Clinical assesment) Heart Score Heart Score: Heart Score Response (Comments) Value History Highly Suspicious 2 EKG Normal 0 Age >65 2 Risk Factors >3 or Hx ASHD 2 Troponin Normal limit 0 Total 6 I personally scribed for VEGA GRIFFIN MD ([email or web address]) on 01/09/25 at 13:57. Electronically submitted by Hu Fong ([email or web address]). VEGA GRIFFIN MD Jan 09, 2025 13:57
[2025-01-09 14:05] LABS: Basophils # (auto) 0 10 ^3/uL (0-0.2); Eosinophils # (auto) 0.2 10 ^3/uL (0-0.8); Hemoglobin 8.7 g/dL (12.2-16.2); Lymphocytes # (auto) 0.6 10 ^3/uL (0.4-5.4); Lymphocytes % (auto) 11.4 % (10.0-50.0); Mean Corpuscular Hemoglobin 30.4 pg (28.0-32.0); Mean Corpuscular Hgb Conc. 32.1 g/dL (32.0-36.0); Mean Corpuscular Volume 94.6 fL (80.0-100.0); Monocytes # (auto) 0.4 10 ^3/uL (0-1.3); Monocytes % (auto) 8.2 % (0.0-12.0); Neutrophils # (auto) 3.7 10 ^3/uL (1.6-8.6); Neutrophils % (auto) 74.4 % (37.0-80.0); Nucleated Red Blood Cells % 0.1 %; Platelet Count (auto) 227 10^3/uL (140-450); Red Blood Cells 2.86 10^6/uL (4.0-5.20); Red Cell Distribution Width 20.8 % (11.8-14.3); White Blood Cell 4.9 10^3/uL (4.4-10.8)
[2025-01-09 14:14] LABS: Potassium 4.1 mmol/L (3.5-5.1)
[2025-01-09 14:16] LABS: Anion Gap 8 (5-15); Calcium 8.9 mg/dL (8.7-10.4); Carbon Dioxide 29 mmol/L (20-31)
--- NOTE | 2025-01-09 14:16 | DVH ---
EXAM: XY CHEST PORTABLE HISTORY: CP COMPARISON: XY CHEST PORTABLE on DOS: 08/28/24, XY CHEST PORTABLE on DOS: 08/02/24, XY CHEST PORTABLE on DOS: 06/10/24, XY CHEST PORTABLE on DOS: 02/20/24, XY CHEST PORTABLE on DOS: 12/25/23. Unfortunately , CT scan of the chest dated 02/22/2024 was not made available in the PACS system for viewing. TECHNIQUE: Portable upright AP view of the chest was performed. FINDINGS: No pneumothorax or consolidative infiltrates. There are stable diffuse bilateral interstitial opacity . The heart is enlarged. There are postoperative changes of median sternotomy and left chest pacemak er. IMPRESSION: 1. No acute intrathoracic process. 2. Stable diffuse bilateral interstitial prominence likely due to pulmonary fibrosis. Recommend velia scott with chest CT from February 2024, which was not made available on the PACS system for comparison. 3. Cardiomegaly and postoperative changes of the heart.
[2025-01-09 14:21] LABS: BUN/Creatinine Ratio 12.9 (10.0-20.0); Blood Urea Nitrogen 9 mg/dL (9-23); Chloride 109 mmol/L (98-107); Glucose 103 mg/dL (74-106); Sodium 146 mmol/L (136-145)
[2025-01-09] MEDS: ASPirin 81 mg TAB PO ONE (14:48)
[2025-01-09 15:38] LABS: Urine Bacteria None Seen /hpf (None Seen)
[2025-01-09 15:57] LABS: Urine Blood Negative /uL (Negative); Urine Clarity Clear (Clear); Urine Color Yellow (Yellow); Urine Mucus FEW (None Seen); Urine Protein, UAD Negative (Negative); Urine Specific Gravity 1.023 (1.001-1.035); Urine Squamous Epithelial Cell FEW /hpf (<5); Urine Urobilinogen Normal (Negative); Urine WBC 2 /HPF (0-5); Urine pH 6.5 (5.0-9.0)
[2025-01-09 17:24] VITALS: PULSE 78; RESP 18; O2SAT 96
[2025-01-09] MEDS: MORPHINE SULFATE 4 MG/ML SYR/VIAL IV ONE (17:30)
[2025-01-09] MEDS: ONDANSETRON HCL 4 MG/2 ML VIAL IV ONE (17:42)
[2025-01-09 19:20] VITALS: PULSE 74; RESP 20; O2SAT 99
[2025-01-09] MEDS: HYDROmorphone HCL 2 MG/ML VL/or syr IV ONE (20:25)
[2025-01-09] MEDS: IPRATROPIUM BROM 0.5 MG/2.5ML INH SOL NEB SCH (22:12)
[2025-01-09] MEDS: LEVALBUTEROL HCL 1.25 MG/3 ML NEB NEB SCH (22:13)
[2025-01-09] MEDS: IPRATROPIUM BROM 0.5 MG/2.5ML INH SOL ONE (22:14)
[2025-01-09] MEDS: LEVALBUTEROL HCL 1.25 MG/3 ML NEB ONE (22:14)
[2025-01-09 22:15] VITALS: PULSE 70; RESP 16; O2SAT 99
[2025-01-09 22:16] VITALS: O2SAT 99
[2025-01-09] MEDS: SOTALOL HCL 80 MG TAB PO SCH (22:20)
[2025-01-09] MEDS: CARVEDILOL 3.125 MG TAB PO SCH (22:20)
[2025-01-09] MEDS: FUROSEMIDE 20 MG TAB PO ONE (22:21)
[2025-01-09] MEDS: ATORVASTATIN 20 MG TAB PO SCH (22:21)
[2025-01-09 22:47] VITALS: BP 114/52; PULSE 70; TEMP 97.9; O2SAT 99
[2025-01-09 22:59] VITALS: BP 112/58; PULSE 66; RESP 18; TEMP 97.4; O2SAT 100
[2025-01-10] VITALS (15 sets, daily range): BP systolic 104–134; BP diastolic 50–72; PULSE 60–85; RESP 16–22; TEMP 97–98.2; O2SAT 92–100
[2025-01-10] MEDS: ONDANSETRON HCL 4 MG/2 ML VIAL IV ONE (01:00)
--- NOTE | 2025-01-10 02:29 | DVHHPRES ---
History of Present Illness Resident Creating Document: JHINGRIS HAGENASHLEYLILLIAN RESIDENT History of Present Illness Patient is a 74-year-old female with a past medical history as described below presented to the ED with a chief complaint of chest pain. Patient reports of chest pain starting on Monday described as a shock-like sensation in the lower chest, nonradiating and occurred while the patient was lying in bed, no exacerbating factors and relieved on taking nitroglycerin. Patient has extensive history of coronary artery disease with 3 CABG, multiple PCIs and is following with Dr. Nielsen. She reports of having chest pain on and off but for a while now she did not have any chest pain until Monday when it was severe enough for her to take nitroglycerin. She again had similar chest pain on Monday and then she informed her primary phonograph cartridge assembler office. Today she again complained of a similar chest pain and presented to the ER for further workup. Patient currently on 3 L home oxygen because of COPD and pulmonary fibrosis and in the hospital continues to be on 2-3 L oxygen and denies shortness of breath. Patient denies cough, expectoration, fever or chills in the last 1 week. Patient denied orthopnea, PND. Past medical history: Coronary artery disease status post CABG x3, COPD, pulmonary fibrosis on home oxygen 3 L, GERD Past surgical history: CABG x3, PCI Social history: Patient quit smoking in 2003 and has 35 pack year smoking history, denies current smoking, alcohol, drug use Home medications: Eliquis 2.5 b.i.d., Plavix, atorvastatin, carvedilol (prescribed twice a day but takes only once because of soft blood pressure), Lasix 40 mg once daily, Trelegy Ellipta, sotalol 80 mg, ranolazine 500 mg b.i.d. Review of Systems Review of Systems Patient seen and examined at the bedside Currently on oxygen 2-3 L/min, denies shortness of breath, chest pain, palpitations Allergies: Coded Allergies: Nitrofurantoin (Verified Allergy, Severe, 04/05/22) Amoxicillin (Verified Allergy, Mild, 09/07/23) 09/07/23: DIRECTOR RETIREMENT, JOHANNA, SPOKE WITH PATIENT. SHE POSSIBLY RECALLS TAKING AMOXICILLIN BEFORE, DENIES ANY RASHES, ITCHINESS, S/SX OF ANAPHYLAXIS. Ciprofloxacin (Verified Allergy, Mild, 09/07/23) 09/07/23: DIRECTOR RETIREMENT, JOHANNA, SPOKE WITH PATIENT. SHE MENTIONED LAST TIME SHE RECIEVED CIPRO INJECTION WAS A WHILE AGO. PATIENT ENDORSED SMALL BUMPS ON THE SKIN BUT PER PATIENT COULD HAVE BEEN DUE TO FAST INJECTION. HAS TAKEN LEVAQUIN PO BEFORE AND DENIES ANY RASH, ITCHINESS, S/SX OF ANAPHYLAXIS. Doxycycline (Verified Allergy, Unknown, "I get really sick", 09/01/24) Patient verbalizes that she "get really sick" in when receiving doxycycline in the past. When asked about specific symptoms in the past, she verbalizes not remembering. Medications Current Medications Medications Dose Ordered Sig/Romaine Route Start Time Stop Time Status Last Admin Dose Admin Nitroglycerin 0.4 mg Q5MINP PRN SL 01/09/25 21:45 Clopidogrel Bisulfate 75 mg DAILY PO 01/10/25 10:00 Atorvastatin Calcium 40 mg HS PO 01/09/25 22:00 01/09/25 22:21 40 MG Carvedilol 6.25 mg Q12HR PO 01/09/25 22:00 01/09/25 22:20 6.25 MG Sotalol HCl 80 mg Q12HR PO 01/09/25 22:00 01/09/25 22:20 80 MG Levalbuterol HCl 0.625 mg Q8HR NEB 01/09/25 22:00 01/09/25 22:13 0.625 MG Ipratropium [place] 0.5 mg Q8HR NEB 01/09/25 22:00 01/09/25 22:12 0.5 MG Furosemide 40 mg DAILY PO 01/10/25 10:00 Acetaminophen/ Hydrocodone Bitart 1 tab Q6HPRN PRN PO 01/09/25 21:45 Hydromorphone HCl 0.5 mg Q4HPRN PRN IV 01/09/25 21:45 Exam Vital Signs Vital Signs Date Time Temp Pulse Resp B/P (MAP) Pulse Ox O2 Delivery O2 Flow Rate FiO2 01/09/25 23:20 66 112/58 01/09/25 22:59 18 100 Nasal Cannula* 3 32 01/09/25 22:59 97.4 97.4 Exam Gen - mild conjunctival pallor, no icterus, no cyanosis, no clubbing, no LAD, no edema . Skin - Patients skin is warm and dry. HEENT - normocephalic, atraumatic, moist mucous membranes. Neck - full ROM, no LAD, no JVD Pulmonary - B/L diminished breath sounds with a basilar coarse inspiratory crackles, no wheezing, no stridor. cardiovascular - regular S1,S2 heard, no added sounds, grade 2/6 systolic murmur heard in the RUSB, LLSB. peripheral pulses normal radial 2+, pedal 2+. capillary refill normal <2 secs. GI - soft, nontender abdomen. no hepatospleenomegaly. Bowel sounds normoactive Neurological - Patient is A/O X 3 . Bilateral upper extremity strength 4/5, bilateral lower extremity strength 3/5, no facial droop, normal speech, no tremor, no sensory deficiets. Labs/Xrays Labs Test 01/09/25 16:45 01/09/25 14:48 01/09/25 13:52 Range/Units Troponin I High Sensitivity 4 </=34 ng/L Urine Color Yellow Yellow Urine Clarity Clear Clear Urine pH 6.5 5.0-9.0 Urine Specific [place] 1.023 1.001-1.035 Urine Protein Negative Negative Urine Ketones Negative Negative Urine Blood Negative Negative /uL Urine Nitrite Negative Negative Urine Bilirubin Negative Negative Urine Urobilinogen Normal Negative mg/dL Urine Leukocyte Esterase Negative Negative /uL Urine RBC 2 0 - 4 /hpf Urine Microscopic WBC 2 0-5 /HPF Urine Squamous Epithelial Cells Few <5 /hpf Urine Bacteria None seen None Seen /hpf Urine Mucus Few None Seen Urine Osmolality 668 mOsm/kg Urine Sodium 178 40-220 mmol/L Urine Glucose Normal Normal mg/dL White Blood Count 4.9 4.4-10.8 10^3/uL Red Blood Count 2.86 L 4.0-5.20 10^6/uL Hemoglobin 8.7 L 12.2-16.2 g/dL Hematocrit 27.0 L 36.0-46.0 % Mean Corpuscular Volume 94.6 80.0-100.0 fL Mean Corpuscular Hemoglobin 30.4 28.0-32.0 pg Mean Corpuscular Hemoglobin Concent 32.1 32.0-36.0 g/dL Red Cell Distribution Width 20.8 H 11.8-14.3 % Platelet Count 227 140-450 10^3/uL Mean Platelet Volume 7.2 6.9-10.8 fL Neutrophils (%) (Auto) 74.4 37.0-80.0 % Lymphocytes (%) (Auto) 11.4 10.0-50.0 % Monocytes (%) (Auto) 8.2 0.0-12.0 % Eosinophils (%) (Auto) 5.0 0.0-7.0 % Basophils (%) (Auto) 1.0 0.0-2.0 % Neutrophils # (Auto) 3.7 1.6-8.6 10 ^3/uL Lymphocytes # (Auto) 0.6 0.4-5.4 10 ^3/uL Monocytes # (Auto) 0.4 0-1.3 10 ^3/uL Eosinophils # (Auto) 0.2 0-0.8 10 ^3/uL Basophils # (Auto) 0 0-0.2 10 ^3/uL Nucleated Red Blood Cells 0.1 % Sodium Level 146 H 136-145 mmol/L Potassium Level 4.1 3.5-5.1 mmol/L Chloride Level 109 H 98-107 mmol/L Carbon Dioxide Level 29 20-31 mmol/L Anion Gap 8 5-15 Blood Urea Nitrogen 9 9-23 mg/dL Creatinine 0.70 0.550-1.02 mg/dL Glomerular Filtration Rate Calc 90 >90 mL/min BUN/Creatinine Ratio 12.9 10.0-20.0 Serum Glucose 103 74-106 mg/dL Calcium Level 8.9 8.7-10.4 mg/dL Ferritin 43.6 10-291 ng/mL B-Type Natriuretic Peptide 354.00 0-100 pg/mL Assessment/Plan Assessment/Plan Acute chest pain, rule out ACS, stable angina History of extensive coronary artery disease S/p CABG x3 ? Paroxysmal Atrial fibrillation - ECG shows no acute ST segment or T-wave changes, sinus rhythm - troponins WNL - primary phonograph cartridge assembler consulted - continued on Plavix - atorvastatin - echo from August 2024 shows Mild concentric left ventricular hypertrophy was seen. LV EF was 55-60%. There was no gross wall motion abnormality. - continued on sotalol 80 mg q.12h, carvedilol - held Eliquis has a patient reported of black stool recently and low hemoglobin - Lasix 40 mg daily Acute on chronic hypoxic respiratory failure COPD, ?Exacerbation History of pulmonary fibrosis - duo trinos q.8 hours - Lasix PUD prophylaxis: Protonix Goals of care discussed with the patient for over 27 minutes. Full code Time spent: 37 minutes Plan discussed with Dr. Recinos Plan discussed with: Patient My Orders Orders - MARIJA MORRISSEY Procedure Category Date Status Time Admit ADMIT 01/09/25 Transmitted 21:34 Nitroglycerin PHA 01/09/25 In Process Sublingual (Ntrostat 21:45 Oxygen By Nasal RT 01/09/25 Transmitted Cannula 21:34 Stat Ekg For Chest LESLIE 01/09/25 In Process Pain 21:34 Notify Md Of Changes LESLIE 01/09/25 In Process From Base 21:34 Market Researcher For LESLIE 01/09/25 In Process 24 Hours 21:34 Emergency Dysrhythmia LESLIE 01/09/25 In Process Protocol 21:34 Rhythm Strips Once LESLIE 01/09/25 In Process Every Shift 21:34 Stool Occult Blood LAB 01/09/25 Logged 21:34 Clopidogrel Bisulfate PHA 01/10/25 In Process (Plavix) 10:00 Atorvastatin (Lipitor) PHA 01/09/25 In Process 22:00 Carvedilol Tablet PHA 01/09/25 In Process (Coreg Tablet) 22:00 Sotalol Hcl (Betapace) PHA 01/09/25 In Process 22:00 Levalbuterol Hcl PHA 01/09/25 In Process (Xopenex Medneb) 22:00 Ipratropium Medneb PHA 01/09/25 In Process (Atrovent Medneb) 22:00 Furosemide Tablet PHA 01/10/25 In Process (Lasix Tablet) 10:00 Hydrocodone-Acet PHA 01/09/25 In Process 5/325mg Tab ([place] 21:45 Hydromorphone PHA 01/09/25 In Process Injection (Dilaudid 21:45 Cardiac DIET 01/10/25 Transmitted Diet-2gna,Lofat,Lochol Breakfast Date of Service: Jan 09, 2025 Billing Provider: AMAN RECINOS MD Common Visit Codes: 48377-WDPTMQG INP/OBS CARE (HIGH) Secondary Visit Codes: 49426-PAICPOSG CARE PLAN 30 MINUTES MARIJA MORRISSEY RESIDENT Jan 10, 2025 02:29
[2025-01-10 04:01] LABS: COVID19 ANTIGEN SOFIA FIA NEGATIVE (NEGATIVE); Rapid Influenza A Negative (Negative); Rapid Influenza B Negative (Negative)
[2025-01-10] MEDS: PANTOPRAZOLE 40 MG TAB PO SCH (05:17)
--- NOTE | 2025-01-10 08:08 | DVHINCON2 ---
Date of service: Jan 10, 2025 History of Present Illness HPI Patient is a 74-year-old female who presented to the hospital for few days of chest discomfort. She is known to our practice from before and outside. She was recently in the office and BRAD was offered to her for further evaluation of aortic valve. Does have a pacemaker which was interrogated just recently and was working good. Does have baseline history of coronary artery disease and status post bypass surgery. Is known to have abnormal nuclear stress test and the patient had previously decided to manage it medically. Since admission, serial troponin has been negative. It is of note that the patient was supposed to be on Plavix and Eliquis as outpatient. He ran out of Plavix around 5 days ago which could have contributed to the clinical picture. Home Meds Active Scripts Cefdinir (Cefdinir) 300 Mg Cap, 1 CAP PO BID for 7 Days, #14 CAP Prov:POOL DILLARD [employer]TAIN 09/04/24 Apixaban Base (ELIQUIS) 2.5 Mg Tab, 2.5 MG PO BID for 30 Days, #60 TAB 3 Refills Prov:POOL DILLARD [employer] CAPTAIN 09/04/24 Clopidogrel Bisulfate (Plavix) 75 Mg Tab, 1 TAB PO DAILY for 30 Days, #30 TAB 3 Refills Prov:POOL DILLARD NP 09/04/24 Ondansetron Odt 4MG Tab (ZOFRAN PO) 4 Mg Tb, 4 MG PO Q8HR PRN, #14 TAB ODT TAB-DISSOLVE IN MOUTH, THEN SWALLOW Prov:VITO SCHUSTER MD 07/08/23 Reported Medications Ferrous Sulfate (Ferosul) 325 Mg Tab, 1 TAB PO BID for 30 Days, #60 06/12/24 Dicyclomine Hcl (BENTYL CAPSULE) 10 Mg Cp, 1 CAP PO QID PRN for 5 Days, #20 06/12/24 Isosorbide Mononitrate (Isosorbide Mononitrate Er) 60 Mg Tab, 1 TAB PO DAILY for 90 Days, #90 06/12/24 Limutdzcapm-Rwzcwhnpbnmz-Anigh (Trelegy Ellipta 200-62.5-25 Mcg/INH) 1 Aer Aer, 1 PUFF IN DAILY for 30 Days, #60 06/12/24 Carvedilol (Carvedilol) 25 Mg Tab, 1 TAB PO TID for 30 Days, #90 02/22/24 Albuterol Sulfate (Albuterol Sulfate Hfa) 108 Mcg/Act Aer, 1 PUFF INH QID 12/26/23 Tramadol Hcl (Tramadol Hcl) 50 Mg Tab, 50 MG PO BID PRN for PAIN SCALE 1 THRU 6, MG 10/11/23 Dahdahypmvl-Qbnryduycsi-Awe C- (Glucosamine Chondroitin) Tab, 1500 MG PO BID, TAB 10/11/23 Cholecalciferol (VITAMIN D3) 2,000 Unit Tab, 50 MCG PO DAILY, #30 TAB 5 Refills 10/11/23 Zinc Sulfate (Zinc Sulfate) 220 Mg Cap, 50 MG PO DAILY for 30 Days, MG 10/11/23 Ascorbic Acid (VITAMIN C TABLET) 500 Mg Tb, 2000 MG PO DAILY, #30 TAB 3 Refills 10/11/23 Nitroglycerin (Nitroglycerin Lingual) 0.4 Mg/Etna Spr, 0.4 MG TL BID PRN for FOR CHEST PAIN, SPR 10/11/23 Magnesium Oxide (MAGNESIUM OXIDE) 400 Mg Tab, 1 TAB PO DAILY for 30 Days, #30 10/11/23 Evolocumab (Repatha) 140 Mg/Ml Inj, 1 ML SC Q2WEEK for 56 Days, #14 INJECT 1 ML SUBCUTANEOUSLY EVERY 2 WEEKS. 09/07/23 Aspirin (Aspir-81) 81 Mg Tab, 1 TAB PO DAILY, #30 TAB 5 Refills 07/01/22 Potassium Chloride (K-Tabs) 10 Meq Tab, 1 TAB.CHEW PO DAILY 07/01/22 Pantoprazole Sodium Sesquihydr (Pantoprazole Sodium) 40 Mg Tab, 1 TAB PO DAILY for 30 Days, #30 07/01/22 Ranolazine (Ranolazine ER) 500 Mg Tab, 1 TAB PO BID for 30 Days, #60 07/01/22 Furosemide (Furosemide) 40 Mg Tab, 1 TAB PO DAILY for 90 Days, #90 07/01/22 Atorvastatin Calcium (ATORVASTATIN CALCIUM) 40 Mg Tab, 1 TAB PO HS for 30 Days, #30 07/01/22 Montelukast Sodium (MONTELUKAST SODIUM) 10 Mg Tab, 1 TAB PO DAILY for 30 Days, #30 07/01/22 Ticagrelor Base (BRILINTA) 90 Mg Tab, 1 TAB PO BID for 30 Days, #60 07/01/22 Past Medical History Others Past medical history includes diabetes mellitus, hyperlipidemia, hypertension, diastolic heart failure, peripheral artery disease, GERD, anxiety, anemia, asthma, coronary artery disease, status post CABG and PCI, status post pacemaker implantation (Medtronic), status post old CVA, paroxysmal atrial flutter (on Eliquis), COPD on home oxygen, fibromyalgia, pulmonary hypertension, history of poor functional status, history of GI bleeding, pulmonary fibrosis, hiatal hernia, ex-smoker, status post gold cholecystectomy/hysterectomy. Is known to have closed grafts for CABG. Has had high risk PCI/left main in [facility] (few years back). Does have history of abnormal nuclear stress test and the plan has been to manage her medically. Has been kept on Eliquis and Plavix as outpatient. She is ex-smoker. Patient Family History: Alcoholism Cardiovascular disease G8 FATHER FHx: lung cancer Hypertension G8 FATHER Secondary malignant neoplasm of lung G8 MOTHER Smoker: No Hx (Negative) Alocohol: None Drugs: None Review of Systems Constitutional: No symptom reported Ears, Nose, & Throat: No symptom reported Pulmonary/Respiratory: Pleuritic Chest Pain Cardiovascular: Chest Pain All Other Systems Fourteen point review of system was performed. Relevant findings as per above and as per HPI. Otherwise negative. H&P Exam Vital Signs Vital Signs Date Time Temp Pulse Resp B/P (MAP) Pulse Ox O2 Delivery O2 Flow Rate FiO2 01/10/25 07:41 71 18 99 01/10/25 07:41 Nasal Cannula* 3 32 01/10/25 05:00 97.6 105/50 (68) 97.6 General Appeara: Well developed Head Exam: Normal inspection Neck Exam: Normal inspection Eye Exam: bilateral eye PERRL Nasal Exam: Normal inspection Mouth: Normal Inspection Pulmonary/Respiratory: Lungs clear Cardiovascular/Chest: Regular rate, Systolic murmur Peripheral Pulses: 2+ carotid (R), 2+ carotid (L), 2+ femoral (R), 2+ femoral (L), 2+ dorsalis pedis (R), 2+ dorsalis pedis (L), 2+ Radial (R), 2+ Radial (L) Abdominal Exam: Normal bowel sounds, Soft Neuro/Mental St: Alert, Oriented Appearance: Appropriate appearance Eye contact/ Speech: Cooperative Labs/Xrays Labs Test 01/10/25 02:28 01/09/25 16:45 01/09/25 14:48 01/09/25 13:52 Range/Units Influenza Type A Antigen Negative Negative Influenza Type B Antigen Negative Negative SARS-CoV-2 Antigen (Rapid) Negative NEGATIVE Troponin I High Sensitivity 4 </=34 ng/L Urine Color Yellow Yellow Urine Clarity Clear Clear Urine pH 6.5 5.0-9.0 Urine Specific [place] 1.023 1.001-1.035 Urine Protein Negative Negative Urine Ketones Negative Negative Urine Blood Negative Negative /uL Urine Nitrite Negative Negative Urine Bilirubin Negative Negative Urine Urobilinogen Normal Negative mg/dL Urine Leukocyte Esterase Negative Negative /uL Urine RBC 2 0 - 4 /hpf Urine Microscopic WBC 2 0-5 /HPF Urine Squamous Epithelial Cells Few <5 /hpf Urine Bacteria None seen None Seen /hpf Urine Mucus Few None Seen Urine Osmolality 668 mOsm/kg Urine Sodium 178 40-220 mmol/L Urine Glucose Normal Normal mg/dL White Blood Count 4.9 4.4-10.8 10^3/uL Red Blood Count 2.86 L 4.0-5.20 10^6/uL Hemoglobin 8.7 L 12.2-16.2 g/dL Hematocrit 27.0 L 36.0-46.0 % Mean Corpuscular Volume 94.6 80.0-100.0 fL Mean Corpuscular Hemoglobin 30.4 28.0-32.0 pg Mean Corpuscular Hemoglobin Concent 32.1 32.0-36.0 g/dL Red Cell Distribution Width 20.8 H 11.8-14.3 % Platelet Count 227 140-450 10^3/uL Mean Platelet Volume 7.2 6.9-10.8 fL Neutrophils (%) (Auto) 74.4 37.0-80.0 % Lymphocytes (%) (Auto) 11.4 10.0-50.0 % Monocytes (%) (Auto) 8.2 0.0-12.0 % Eosinophils (%) (Auto) 5.0 0.0-7.0 % Basophils (%) (Auto) 1.0 0.0-2.0 % Neutrophils # (Auto) 3.7 1.6-8.6 10 ^3/uL Lymphocytes # (Auto) 0.6 0.4-5.4 10 ^3/uL Monocytes # (Auto) 0.4 0-1.3 10 ^3/uL Eosinophils # (Auto) 0.2 0-0.8 10 ^3/uL Basophils # (Auto) 0 0-0.2 10 ^3/uL Nucleated Red Blood Cells 0.1 % Sodium Level 146 H 136-145 mmol/L Potassium Level 4.1 3.5-5.1 mmol/L Chloride Level 109 H 98-107 mmol/L Carbon Dioxide Level 29 20-31 mmol/L Anion Gap 8 5-15 Blood Urea Nitrogen 9 9-23 mg/dL Creatinine 0.70 0.550-1.02 mg/dL Glomerular Filtration Rate Calc 90 >90 mL/min BUN/Creatinine Ratio 12.9 10.0-20.0 Serum Glucose 103 74-106 mg/dL Calcium Level 8.9 8.7-10.4 mg/dL Ferritin 43.6 10-291 ng/mL B-Type Natriuretic Peptide 354.00 0-100 pg/mL Assessment/Plan Plan Patient is a 74-year-old female who presented to the hospital for few days of chest discomfort. She is known to our practice from before and outside. She was recently in the office and BRAD was offered to her for further evaluation of aortic valve. Does have a pacemaker which was interrogated just recently and was working good. Does have baseline history of coronary artery disease and status post bypass surgery. Is known to have abnormal nuclear stress test and the patient had previously decided to manage it medically. Since admission, serial troponin has been negative. It is of note that the patient was supposed to be on Plavix and Eliquis as outpatient. He ran out of Plavix around 5 days ago which could have contributed to the clinical picture. Lying comfortably flat in bed. No JVD. pink mucosa. Lungs reveal scattered rhonchi. Cardiac: Regular, no thrills/murmur. Abdomen is soft. No hepatomegaly. Bowel sounds positive. Lower extremities do not reveal edema. Dorsalis pedis is 2+ bilateral Past medical history includes diabetes mellitus, hyperlipidemia, hypertension, diastolic heart failure, peripheral artery disease, GERD, anxiety, anemia, asthma, coronary artery disease, status post CABG and PCI, status post pacemaker implantation (Medtronic), status post old CVA, paroxysmal atrial flutter (on El iquis), COPD on home oxygen, fibromyalgia, pulmonary hypertension, history of poor functional status, history of GI bleeding, pulmonary fibrosis, hiatal hernia, ex-smoker, status post gold cholecystectomy/hysterectomy. Is known to have closed grafts for CABG. Has had high risk PCI/left main in [facility] (few years back). Does have history of abnormal nuclear stress test and the plan has been to manage her medically. Has been kept on Eliquis and Plavix as outpatient. She is ex-smoker. Echocardiogram of January 09, 2023 revealed LVEF of 55 to 60%, mild concentric left ventricular hypertrophy, no wall motion abnormality, mild biatrial enlargement, pacing wire in right-sided chambers, mild to moderate aortic insufficiency, mild mitral regurgitation, mild to moderate tricuspid regurgitation and right ventricular systolic pressure of 35 mmHg Echocardiogram of March 07, 2023 had revealed ejection fraction of 55 to 60%, mild concentric left ventricular hypertrophy, mild AI/MR/PI, mild biatrial enlargement, pacemaker wire in the right-sided chambers and right ventricular systolic pressure of 34 mmHg Echocardiogram of September 06, 2023 revealed ejection fraction of 55% and pacemaker in right-sided chambers Echocardiogram of December 26, 2023 had reported ejection fraction of 55-60%, no wall motion abnormality, [id number] aortic insufficiency, mild MR, moderate TR and right ventricular systolic pressure 42 mm Hg Echocardiogram of August 30, 2024 reported ejection fraction of 55-60%, no wall motion abnormality, mild biatrial enlargement, pacemaker in the right-sided chambers, mild AI/MR and moderate tricuspid regurgitation. Right ventricular systolic pressure was assessed at 41 mm Hg. Echocardiogram of December 20, 2024 (performed in the office) revealed ejection frac tion of 60-65%, mild concentric left ventricular hypertrophy, pseudo normal LV filling, mild biatrial enlargement, mild right ventricular enlargement with good systolic function, moderate aortic insufficiency, aortic sclerosis with no stenosis, mild mitral annular calcification, gekx-aa-mylexnqb MR/TR and right ventricular systolic pressure of 53 mm Hg. Hemoglobin: 8.7 BNP: 354 Troponin (high sensitive): 4 - 4 - 4 Creatinine: 0.70 Potassium: 4.1 Chest x-ray revealed: IMPRESSION: 1. No acute intrathoracic process. 2. Stable diffuse bilateral interstitial prominence likely due to pulmonary fibrosis. Recommend comparison with chest CT from February 2024, which was not made available on the PACS system for comparison. 3. Cardiomegaly and postoperative changes of the heart. EKG revealed sinus rhythm with nonspecific ST-T changes Telemetry reveals sinus rhythm and occasions of paced rhythm. Patient is a 74-year-old female who presented with chest discomfort for few days. She actually had ran out of Plavix few days back which could have contributed to the clinical picture. Serial troponin has been negative. It is of note that the patient does have old history of nuclear stress test at she decided to managed medically. It is also of note that the patient was recently offered BRAD for questionable valvular disease. Chest discomfort Coronary artery disease, status post CABG/PCI Paroxysmal atrial flutter, history of (on Eliquis as outpatient) COPD Pulmonary fibrosis Pulmonary hypertension, history of Chronic diastolic heart failure Status post pacemaker Hypokalemia Paroxysmal atrial flutter with RVR Cardiac suggestions for management: Manage on telemetry Follow-up electrolytes and kidney function and correct abnormalities, keep p otassium above 4 magnesium above 2 Echocardiogram BRAD and left heart catheterization, possibly on Monday. Keep NPO Monday night for Monday morning procedures. Full anti-coagulation for CVA prophylaxis is advised. As there is a plan for possible for catheterization, we will hold Eliquis and give the patient therapeutic Lovenox for now Lovenox, therapeutic dose Plavix 75mg daily given previous PCI Continuation of Statin/Ranexa/Imdur (what patient takes as outpatient) is suggested Thank you for consultation Further evaluation and management depends on the above and clinical course A total of 75 minutes was spent reviewing the patient record, examining the patient, making a diagnostic and therapeutic plan, discussing this plan with medical personnel, following up on diagnostic studies and following the patient for clinical stability excluding any and all procedures. At least 50% of this time was spent in direct, [id number] contact. Thank you for allowing me to participate in this patient's care. Further recommendations will depend on patient's clinical course. Please do not hesitate to contact me if you have any questions or concerns. This medical document was created using electronic medical record system with [employer] dictation system. Although this document has been carefully reviewed, there may still be some phonetic and typographical errors. These areas are purely typographical due to the imperfection of the software programs, and do not reflect any compromise in the patient's medical care. Plan discussed with: Patient, Other (nurse) AJAY SMALLWOOD MD Jan 10, 2025 08:08
[2025-01-10] MEDS ORDERED: ENOXAPARIN SOD 100 MG/1 ML SYRINGE SC SCH (10:00)
[2025-01-10] MEDS: FUROSEMIDE 20 MG TAB PO SCH (10:11)
[2025-01-10] MEDS: CLOPIDOGREL BISULFATE 75 MG TAB PO SCH (10:13)
[2025-01-10] MEDS: HYDROcodone-ACET 5/325MG TAB PO PRN (10:16)
[2025-01-10] MEDS: ENOXAPARIN SOD 40 MG/0.4 ML SYRINGE SC SCH (10:16)
--- NOTE | 2025-01-10 13:16 | ECG ---
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
--- NOTE | 2025-01-10 14:45 | ECG ---
[facility] Test Date: 2025-01-09 Test Time: 13:33:05 Pat Name: EUN PAIZ Department: ED Room: 0217T A Gender: F Polarity Tester: rock : 1950 Requested By: VEGA GRIFFIN Order Number: [id number] Reading MD: Bobby Ramey Measurements Intervals [place] Rate: 78 P: 0 DC: 214 QRS: 7 QRSD: 90 T: 83 QT: 398 QTc: 454 Interpretive Statements Atrial-paced rhythm Nonspecific T abnormalities, anterior leads Electronically Signed On 01-15-2025 20:25:10 PDT by Bobby Ramey Please click the below link to view image of tracing.
[2025-01-10 16:33] LABS: INR 1.36 (0.9-1.15); Partial Thromboplastin Time 28.2 SEC (24.5-34.5)
[2025-01-10 16:34] LABS: Albumin 4.2 g/dL (3.2-4.8); Bilirubin, Direct 0.1 mg/dL (<0.3); Magnesium 1.9 mg/dL (1.6-2.6); Total Protein 6.1 g/dL (5.7-8.2)
[2025-01-10 16:35] LABS: Bilirubin, Total 0.3 mg/dL (0.2-1.0)
--- NOTE | 2025-01-10 19:13 | DVHPNRES ---
Progress Note Date Seen: Jan 10, 2025 Resident Creating Document: CHERRY HARRINGTON RESIDENT Medical Necessity Reason Pt with a Central, PICC or Fol: No Subjective Review of Systems Patient is a 74-year-old female with a past medical history as described below presented to the ED with a chief complaint of chest pain. Patient reports of chest pain starting on Monday described as a shock-like sensation in the lower chest, nonradiating and occurred while the patient was lying in bed, no exacerbating factors and relieved on taking nitroglycerin. Patient has extensive history of coronary artery disease with 3 CABG, multiple PCIs and is following with Dr. Nielsen. She reports of having chest pain on and off but for a while now she did not have any chest pain until Monday when it was severe enough for her to take nitroglycerin. She again had similar chest pain on Monday and then she informed her primary biology faculty member office. Today she again complained of a similar chest pain and presented to the ER for further workup. Patient currently on 3 L home oxygen because of COPD and pulmonary fibrosis and in the hospital continues to be on 2-3 L oxygen and denies shortness of breath. Patient denies cough, expectoration, fever or chills in the last 1 week. Patient denied orthopnea, PND. Patient was not taking Plavix for the past 5 days. As she ran out. Past medical history: Coronary artery disease status post CABG x3, COPD, pulmonary fibrosis on home oxygen 3 L, GERD Past surgical history: CABG x3, PCI Social history: Patient quit smoking in 2003 and has 35 pack year smoking history, denies current smoking, alcohol, drug use Home medications: Eliquis 2.5 b.i.d., Plavix, atorvastatin, carvedilol (prescribed twice a day but takes only once because of soft blood pressure), Lasix 40 mg once daily, Trelegy Ellipta, sotalol 80 mg, ranolazine 500 mg b.i.d. Patient seen and examined at the bedside. Cardiology consultation-recommended left heart catheterization 01/13. Stool occult is pending. Iron panel pending Objective vital signs Vital Sign Date Time Temp Pulse Resp B/P (MAP) Pulse Ox O2 Delivery O2 Flow Rate FiO2 01/10/25 17:00 97.5 70 16 117/56 (76) 100 97.5 01/10/25 14:20 Nasal Cannula 1.0 01/10/25 14:20 24 Total Intake and Output 01/09/25 01/09/25 01/10/25 14:59 22:59 06:59 Intake Total 1200 ml Balance 1200 ml medications Current Medications Medications Dose Ordered Sig/Romaine Route Start Time Stop Time Status Last Admin Dose Admin Nitroglycerin 0.4 mg Q5MINP PRN SL 01/09/25 21:45 Clopidogrel Bisulfate 75 mg DAILY PO 01/10/25 10:00 01/10/25 10:13 75 MG Atorvastatin Calcium 40 mg HS PO 01/09/25 22:00 01/09/25 22:21 40 MG Carvedilol 6.25 mg Q12HR PO 01/09/25 22:00 01/10/25 10:13 6.25 MG Sotalol HCl 80 mg Q12HR PO 01/09/25 22:00 01/10/25 10:12 80 MG Levalbuterol HCl 0.625 mg Q8HR NEB 01/09/25 22:00 01/10/25 14:20 0.625 MG Ipratropium [place] 0.5 mg Q8HR NEB 01/09/25 22:00 01/10/25 14:20 0.5 MG Furosemide 40 mg DAILY PO 01/10/25 10:00 01/10/25 10:11 40 MG Acetaminophen/ Hydrocodone Bitart 1 tab Q6HPRN PRN PO 01/09/25 21:45 01/10/25 10:16 1 TAB Hydromorphone HCl 0.5 mg Q4HPRN PRN IV 01/09/25 21:45 Pantoprazole Sodium 40 mg DAILY@0600 PO 01/10/25 06:00 01/10/25 05:17 40 MG Enoxaparin Sodium 40 mg DAILY SC 01/10/25 10:00 01/10/25 10:16 40 MG Saccharomyces Boulardii 250 mg DAILY PO 01/11/25 10:00 Examination Patient lying in bed, in no acute distress General: Well-built, afebrile, palor, mucosae are moist Cardiovascular: Regular S1 and S2. No murmurs, gallops or rubs. No JVD elevation. No pedal edema Respiratory: Bilateral d decreased breath sounds on 3 L oxygen, crackles heard. Abdomen: Soft, nontender, nondistended, normoactive bowel sounds, no rebound tenderness, no organomegaly, no masses Genitourinary: Deferred MSK/skin: Mobilizes 4 limbs. Skin is dry and warm Neurological: No motor, no sensitive deficits, normal speech. Pupils are isocoric and reactive. Psych/Mental Status: A/Ox3 laboratory and microbiology Laboratory Tests 01/09/25 13:52 Test 01/09/25 13:52 Range/Units Serum Glucose 103 74-106 mg/dL Labs and/or images reviewed: Labs reviewed by me, Image(s) reviewed by me Problem List/Assessment/Plan Problem List/Assessment/Plan Acute chest pain, rule out ACS Status post CABG 1995, 2002 Multiple PCIs-last RUSSELL 2021 ? Paroxysmal atrial fibrillation on Eliquis History of Pulmonary hypertension Status post pacemaker - ECG shows no acute ST segment or T-wave changes, sinus rhythm - troponins WNL, BNP 354 - primary biology faculty member consulted - continued on Plavix - atorvastatin - echo pending. Last echo shows LV EF was 55-60%. There was no gross wall motion abnormality. - continued on sotalol 80 mg q.12h, carvedilol - held Eliquis has a patient reported of black stool recently and low hemoglobin -cardiology: Continue Plavix, atorvastatin, Lovenox 40 mg sc daily - Lasix 40 mg daily Anemia, rule out iron-deficiency H&H on admission 8.03/02 Retic count 5.3 Haptoglobin, LDH pending, iron panel pending Stool occult pending Acute on chronic hypoxic respiratory failure History of asbestos exposure COPD, ?Exacerbation History of pulmonary fibrosis - duo nebs q.8 hours - Lasix - chest x-ray shows: Stable diffuse bilateral interstitial prominence likely due to pulmonary fibrosis. Recommend comparison with chest CT from February 2024, which was not made available on the PACS system for comparison. Cardiac diet Lovenox 40 mg sc daily Plan discussed with patient in which all questions have been answered Goals of care discussed with patient for more than 28 minutes, full code status Case discussed with Dr. Alexander Plan discussed with: Patient My Orders My Orders Orders - CHERRY HARRINGTON Procedure Category Date Status Time Florastor (S. PHA 01/11/25 In Process Boulardii) (Florastor) 10:00 Haptoglobin LAB 01/10/25 In Process 15:22 CHERRY HARRINGTON Jan 10, 2025 19:13
[2025-01-11] VITALS (11 sets, daily range): BP systolic 104–129; BP diastolic 52–70; PULSE 60–79; RESP 16–18; TEMP 96.5–98.7; O2SAT 98–100
[2025-01-11 06:18] LABS: Basophils # (auto) 0.1 10 ^3/uL (0-0.2); Eosinophils # (auto) 0.5 10 ^3/uL (0-0.8); Eosinophils % (auto) 9.3 % (0.0-7.0); Hematocrit 27.5 % (36.0-46.0); Hemoglobin 9.1 g/dL (12.2-16.2); Lymphocytes # (auto) 0.6 10 ^3/uL (0.4-5.4); Lymphocytes % (auto) 12.7 % (10.0-50.0); Mean Corpuscular Hemoglobin 31.1 pg (28.0-32.0); Mean Corpuscular Hgb Conc. 33.2 g/dL (32.0-36.0); Mean Corpuscular Volume 93.9 fL (80.0-100.0); Monocytes # (auto) 0.4 10 ^3/uL (0-1.3); Monocytes % (auto) 8.6 % (0.0-12.0); Neutrophils # (auto) 3.5 10 ^3/uL (1.6-8.6); Neutrophils % (auto) 68.4 % (37.0-80.0); Nucleated Red Blood Cells % 0.1 %; Platelet Count (auto) 209 10^3/uL (140-450); Red Blood Cells 2.93 10^6/uL (4.0-5.20); Red Cell Distribution Width 19.3 % (11.8-14.3); White Blood Cell 5.1 10^3/uL (4.4-10.8)
[2025-01-11 06:33] LABS: % Iron Saturation 8.9 % (15-50)
[2025-01-11 06:37] LABS: Alanine Aminotransferase 10 U/L (7-40); Alkaline Phosphatase 90 U/L (46-116); Anion Gap 8 (5-15); BUN/Creatinine Ratio 14.7 (10.0-20.0); Blood Urea Nitrogen 10 mg/dL (9-23); Calcium 9.8 mg/dL (8.7-10.4); Carbon Dioxide 31 mmol/L (20-31); Chloride 104 mmol/L (98-107); Glucose 90 mg/dL (74-106); LDL Cholesterol 25 mg/dL (< 100); Potassium 3.8 mmol/L (3.5-5.1); Sodium 143 mmol/L (136-145); Total Protein 5.9 g/dL (5.7-8.2); Triglycerides 139 mg/dL (< 150)
[2025-01-11 06:38] LABS: Albumin 4.1 g/dL (3.2-4.8); Aspartate Aminotransferase 12 U/L (13-40); Bilirubin, Total 0.3 mg/dL (0.2-1.0); Cholesterol 87 mg/dL (< 200); HDL Cholesterol 46 mg/dL (40-59)
[2025-01-11] MEDS: FLORASTOR (S. BOULARDII) 250 MG CAP PO SCH (09:57)
--- NOTE | 2025-01-11 10:11 | DVHPN2 ---
Progress Note - Dictate Date Seen: Jan 11, 2025 Medical Necessity Reason Pt with a Central, PICC or Fol: No Subjective Patient is a 74-year-old female who presented to the hospital for few days of chest discomfort. She is known to our practice from before and outside. She was recently in the office and BRAD was offered to her for further evaluation of aortic valve. Does have a pacemaker which was interrogated just recently and was working good. Does have baseline history of coronary artery disease and status post bypass surgery. Is known to have abnormal nuclear stress test and the patient had previously decided to manage it medically. Since admission, serial troponin has been negative. It is of note that the patient was supposed to be on Plavix and Eliquis as outpatient. She ran out of Plavix around 5 days ago which could have contributed to the clinical picture. Past medical history includes diabetes mellitus, hyperlipidemia, hypertension, diastolic heart failure, peripheral artery disease, GERD, anxiety, anemia, asthma, coronary artery disease, status post CABG and PCI, status post pacemaker implantation ([employer]), status post old CVA, paroxysmal atrial flutter (on Eliquis), COPD on home oxygen, fibromyalgia, pulmonary hypertension, history of poor functional status, history of GI bleeding, pulmonary fibrosis, hiatal hernia, ex-smoker, status post gold cholecystectomy/hysterectomy. Is known to have closed grafts for CABG. Has had high risk PCI/left main in [facility] (few years back). Does have history of abnormal nuclear stress test and the plan has been to manage her medically. Has been kept on Eliquis and Plavix as outpatient. She is ex-smoker. Echocardiogram of January 09, 2023 revealed LVEF of 55 to 60%, mild concentric left ventricular hypertrophy, no wall motion abnormality, mild biatrial enlargement, pacing wire in right-sided chambers, mild to moderate aortic insufficiency, mild mitral regurgitation, mild to moderate tricuspid regurgitation and right ventricular systolic pressure of 35 mmHg Echocardiogram of March 07, 2023 had revealed ejection fraction of 55 to 60%, mild concentric left ventricular hypertrophy, mild AI/MR/PI, mild biatrial enlargement, pacemaker wire in the right-sided chambers and right ventricular systolic pressure of 34 mmHg Echocardiogram of September 06, 2023 revealed ejection fraction of 55% and pacemaker in right-sided chambers Echocardiogram of December 26, 2023 had reported ejection fraction of 55-60%, no wall motion abnormality, [id number] aortic insufficiency, mild MR, moderate TR and right ventricular systolic pressure 42 mm Hg Echocardiogram of August 30, 2024 reported ejection fraction of 55-60%, no wall motion abnormality, mild biatrial enlargement, pacemaker in the right-sided chambers, mild AI/MR and moderate tricuspid regurgitation. Right ventricular systolic pressure was assessed at 41 mm Hg. Echocardiogram of December 20, 2024 (performed in the office) revealed ejection fraction of 60-65%, mild concentric left ventricular hypertrophy, pseudo normal LV filling, mild biatrial enlargement, mild right ventricular enlargement with good systolic function, moderate aortic insufficiency, aortic sclerosis with no stenosis, mild mitral annular calcification, [id number] MR/TR and right ventricular systolic pressure of 53 mm Hg. Hemoglobin: 8.7 BNP: 354 Troponin (high sensitive): 4 - 4 - 4 Creatinine: 0.70 Potassium: 4.1 Chest x-ray revealed: IMPRESSION: 1. No acute intrathoracic process. 2. Stable diffuse bilateral interstitial prominence likely due to pulmonary fibrosis. Recommend comparison with chest CT from February 2024, which was not made available on the PACS system for comparison. 3. Cardiomegaly and postoperative changes of the heart. EKG revealed sinus rhythm with nonspecific ST-T changes Telemetry reveals sinus rhythm and occasions of paced rhythm. Patient is a 74-year-old female who presented with chest discomfort for few days. She actually had ran out of Plavix few days back which could have contributed to the clinical picture. Serial troponin has been negative. It is of note that the patient does have old history of nuclear stress test at she decided to managed medically. It is also of note that the patient was recently offered BRAD for questionable valvular disease. vital signs Vital Sign Date Time Temp Pulse Resp B/P (MAP) Pulse Ox O2 Delivery O2 Flow Rate FiO2 01/11/25 09:58 129/66 01/11/25 09:57 70 01/11/25 09:00 98.7 16 100 98.7 01/11/25 08:00 Nasal Cannula* 3 32 Total Intake and Output 01/10/25 01/10/25 01/11/25 15:00 23:00 07:00 Intake Total 520 ml 300 ml Balance 520 ml 300 ml medications Current Medications Medications Dose Ordered Sig/Romaine Route Start Time Stop Time Status Last Admin Dose Admin Nitroglycerin 0.4 mg Q5MINP PRN SL 01/09/25 21:45 Clopidogrel Bisulfate 75 mg DAILY PO 01/10/25 10:00 01/11/25 09:57 75 MG Atorvastatin Calcium 40 mg HS PO 01/09/25 22:00 01/10/25 21:39 40 MG Carvedilol 6.25 mg Q12HR PO 01/09/25 22:00 01/11/25 09:57 6.25 MG Sotalol HCl 80 mg Q12HR PO 01/09/25 22:00 01/11/25 09:57 80 MG Levalbuterol HCl 0.625 mg Q8HR NEB 01/09/25 22:00 01/10/25 14:20 0.625 MG Ipratropium [place] 0.5 mg Q8HR NEB 01/09/25 22:00 01/10/25 14:20 0.5 MG Furosemide 40 mg DAILY PO 01/10/25 10:00 01/11/25 09:58 40 MG Acetaminophen/ Hydrocodone Bitart 1 tab Q6HPRN PRN PO 01/09/25 21:45 01/10/25 23:15 1 TAB Hydromorphone HCl 0.5 mg Q4HPRN PRN IV 01/09/25 21:45 Pantoprazole Sodium 40 mg DAILY@0600 PO 01/10/25 06:00 01/11/25 05:16 40 MG Enoxaparin Sodium 40 mg DAILY SC 01/10/25 10:00 01/11/25 09:59 40 MG Saccharomyces Boulardii 250 mg DAILY PO 01/11/25 10:00 01/11/25 09:57 250 MG objective Heart: S1 and S2 present. The patienr is A paced 74bpm Lungs: CTAB Abdomen: Benign. Extremities: Distal pulses palpable, 2+. No evidence for peripheral edema laboratory and microbiology Laboratory Tests 01/11/25 05:35 Test 01/11/25 05:35 Range/Units Serum Glucose 90 74-106 mg/dL Assessment/Plan Chest discomfort Coronary artery disease, status post CABG/PCI Paroxysmal atrial flutter, history of (on Eliquis as outpatient) COPD Pulmonary fibrosis Pulmonary hypertension, history of Chronic diastolic heart failure Status post pacemaker Hypokalemia Paroxysmal atrial flutter with RVR Cardiology Recommendations: Manage on telemetry Follow-up electrolytes and kidney function and correct abnormalities, keep potassium above 4 magnesium above 2 Echocardiogram BRAD and left heart catheterization, possibly on Monday. Keep NPO Monday night for Monday morning procedures. Full anti-coagulation for CVA prophylaxis is advised. As there is a plan for possible for catheterization, we will hold Eliquis and give the patient therapeutic Lovenox for now Lovenox, therapeutic dose Plavix 75mg daily given previous PCI Continuation of Statin/Ranexa/Imdur (what patient takes as outpatient) is suggested All available labs, EKGs, and images were personally reviewed Patient's status, findings, and plan of care was discussed and reviewed with supervising physician Dr. Nielsen, who is in agreement with current plan of care. Plan of care discussed with and agreed upon by patient/Primary RN. Prognosis: Guarded Thank you for allowing me to participate in the care of this patient. Further recommendations will depend on clinical progression, hospitalist, and other consultants. Will continue to follow with Primary. If you have any questions, please do not hesitate to contact me. A total of 75 minutes was spent reviewing the patient record, examining the patient, making a diagnostic and therapeutic plan, discussing this plan with medical personnel, following up on diagnostic studies and following the patient for clinical stability excluding any and all procedures. At least 50% of this time was spent in direct, [id number] contact. 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
[2025-01-11] MEDS: NITROGLYCERIN 0.4 MG SL TAB SL PRN (12:26)
--- NOTE | 2025-01-11 15:05 | DVH ---
EXAM: XY CHEST PORTABLE TECHNIQUE: Single frontal chest radiograph CLINICAL HISTORY: preop COMPARISON: XY CHEST PORTABLE on DOS: 01/09/25, XY CHEST PORTABLE on DOS: 08/28/24, XY CHEST PORTABLE on DOS: 08/02/24 Findings/Impression: Frontal chest radiograph demonstrates no acute osseous or superficial soft tissue abnormalities. Left chest wall dual-chamber pacemaker. The trachea is midline. Cardiomegaly. Diffuse coarsened interstitial markings may reflect pulmonary edema and/or interstitial pneumonitis. Small left pleural effusion with compressive atelectasis. A superimposed infectious process is not ex cluded. No pneumothorax.
--- NOTE | 2025-01-11 15:45 | DVHPNRES ---
Progress Note Date Seen: Jan 11, 2025 Resident Creating Document: TREVOR AYALA RESIDENT Medical Necessity Reason Pt with a Central, PICC or Fol: No Subjective Review of Systems Patient seen and examined at the bedside. Cardiology consultation-recommended left heart catheterization 01/13. Objective vital signs Vital Sign Date Time Temp Pulse Resp B/P (MAP) Pulse Ox O2 Delivery O2 Flow Rate FiO2 01/11/25 13:26 118/57 01/11/25 12:47 97.3 71 16 100 97.3 01/11/25 10:00 Nasal Cannula* 3 32 Total Intake and Output 01/10/25 01/10/25 01/11/25 14:59 22:59 06:59 Intake Total 520 ml 300 ml Balance 520 ml 300 ml medications Current Medications Medications Dose Ordered Sig/Romaine Route Start Time Stop Time Status Last Admin Dose Admin Nitroglycerin 0.4 mg Q5MINP PRN SL 01/09/25 21:45 01/11/25 12:26 0.4 MG Clopidogrel Bisulfate 75 mg DAILY PO 01/10/25 10:00 01/11/25 09:57 75 MG Atorvastatin Calcium 40 mg HS PO 01/09/25 22:00 01/10/25 21:39 40 MG Carvedilol 6.25 mg Q12HR PO 01/09/25 22:00 01/11/25 09:57 6.25 MG Sotalol HCl 80 mg Q12HR PO 01/09/25 22:00 01/11/25 09:57 80 MG Levalbuterol HCl 0.625 mg Q8HR NEB 01/09/25 22:00 01/10/25 14:20 0.625 MG Ipratropium [place] 0.5 mg Q8HR NEB 01/09/25 22:00 01/10/25 14:20 0.5 MG Furosemide 40 mg DAILY PO 01/10/25 10:00 01/11/25 09:58 40 MG Acetaminophen/ Hydrocodone Bitart 1 tab Q6HPRN PRN PO 01/09/25 21:45 01/11/25 11:20 1 TAB Hydromorphone HCl 0.5 mg Q4HPRN PRN IV 01/09/25 21:45 Pantoprazole Sodium 40 mg DAILY@0600 PO 01/10/25 06:00 01/11/25 05:16 40 MG Enoxaparin Sodium 40 mg DAILY SC 01/10/25 10:00 01/11/25 09:59 40 MG Saccharomyces Boulardii 250 mg DAILY PO 01/11/25 10:00 01/11/25 09:57 250 MG Examination General: Well-built, afebrile, palor, mucosae are moist Cardiovascular: Regular S1 and S2. No murmurs, gallops or rubs. No JVD elevation. No pedal edema Respiratory: Bilateral d decreased breath sounds on 3 L oxygen, crackles heard. Abdomen: Soft, nontender, nondistended, normoactive bowel sounds, no rebound tenderness, no organomegaly, no masses Genitourinary: Deferred MSK/skin: Mobilizes 4 limbs. Skin is dry and warm Neurological: No motor, no sensitive deficits, normal speech. Pupils are isocoric and reactive. Psych/Mental Status: A/Ox3 laboratory and microbiology Laboratory Tests 01/11/25 05:35 Test 01/11/25 05:35 Range/Units Serum Glucose 90 74-106 mg/dL Problem List/Assessment/Plan Problem List/Assessment/Plan Acute chest pain, rule out ACS Status post CABG 1995, 2002 Multiple PCIs-last RUSSELL 2021 ? 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 Last echo shows LV EF was 55-60%. There was no gross wall motion abnormality. - continued on sotalol 80 mg q.12h, carvedilol - held [facility] has a patient reported of black stool recently and low hemoglobin -cardiology: Continue Plavix, atorvastatin, Lovenox 40 mg sc daily - Lasix 40 mg daily Anemia, rule out iron-deficiency H&H on admission Retic count 5.3 Haptoglobin, LDH pending, iron panel pending Stool occult pending Acute on chronic hypoxic respiratory failure History of asbestos exposure COPD, ?Exacerbation History of pulmonary fibrosis - duo nebs q.8 hours - Lasix - chest x-ray shows: Stable diffuse bilateral interstitial prominence likely due to pulmonary fibrosis. Recommend comparison with chest CT from February 2024, which was not made available on the PACS system for comparison. Cardiac diet Lovenox 40 mg sc daily Plan discussed with Dr. Garcia Plan discussed with: Patient Date of Service: Jan 11, 2025 Billing Provider: AUDREY GARCIA MD Common Visit Codes: [id number] INP/OBS CARE(HIGH) TREVOR AYALA RESIDENT Jan 11, 2025 15:45 AUDREY GARCIA MD Jan 11, 2025 22:27
[2025-01-12] VITALS (14 sets, daily range): BP systolic 100–138; BP diastolic 40–79; PULSE 61–71; RESP 15–20; TEMP 97.1–98; O2SAT 98–100
[2025-01-12 05:38] LABS: Basophils # (auto) 0.1 10 ^3/uL (0-0.2); Eosinophils # (auto) 0.5 10 ^3/uL (0-0.8); Eosinophils % (auto) 9.7 % (0.0-7.0); Hemoglobin 9.8 g/dL (12.2-16.2); Lymphocytes # (auto) 0.6 10 ^3/uL (0.4-5.4); Lymphocytes % (auto) 12.4 % (10.0-50.0); Mean Corpuscular Hemoglobin 30.2 pg (28.0-32.0); Mean Corpuscular Hgb Conc. 32.5 g/dL (32.0-36.0); Mean Corpuscular Volume 92.7 fL (80.0-100.0); Monocytes # (auto) 0.5 10 ^3/uL (0-1.3); Monocytes % (auto) 9.6 % (0.0-12.0); Neutrophils # (auto) 3.5 10 ^3/uL (1.6-8.6); Neutrophils % (auto) 67.3 % (37.0-80.0); Platelet Count (auto) 234 10^3/uL (140-450); Red Blood Cells 3.24 10^6/uL (4.0-5.20); Red Cell Distribution Width 18.7 % (11.8-14.3); White Blood Cell 5.2 10^3/uL (4.4-10.8)
[2025-01-12 05:47] LABS: Chloride 100 mmol/L (98-107); Potassium 3.7 mmol/L (3.5-5.1); Sodium 143 mmol/L (136-145)
[2025-01-12 05:48] LABS: Anion Gap 9 (5-15); Calcium 10.2 mg/dL (8.7-10.4)
[2025-01-12 05:52] LABS: Carbon Dioxide 34 mmol/L (20-31)
[2025-01-12 05:53] LABS: BUN/Creatinine Ratio 14.5 (10.0-20.0); Blood Urea Nitrogen 9 mg/dL (9-23); Glucose 92 mg/dL (74-106)
[2025-01-12] MEDS: IOHEXOL 350 MG/ML 100ML IJ ONE (07:29)
--- NOTE | 2025-01-12 08:56 | DVHPN2 ---
Progress Note - Dictate Date Seen: Jan 12, 2025 Medical Necessity Reason Pt with a Central, PICC or Fol: No Subjective Patient is a 74-year-old female who presented to the hospital for few days of chest discomfort. She is known to our practice from before and outside. She was recently in the office and BRAD was offered to her for further evaluation of aortic valve. Does have a pacemaker which was interrogated just recently and was working good. Does have baseline history of coronary artery disease and status post bypass surgery. Is known to have abnormal nuclear stress test and the patient had previously decided to manage it medically. Since admission, serial troponin has been negative. It is of note that the patient was supposed to be on Plavix and Eliquis as outpatient. She ran out of Plavix around 5 days ago which could have contributed to the clinical picture. Past medical history includes diabetes mellitus, hyperlipidemia, hypertension, diastolic heart failure, peripheral artery disease, GERD, anxiety, anemia, asthma, coronary artery disease, status post CABG and PCI, status post pacemaker implantation ([employer]tr[employer]), status post old CVA, paroxysmal atrial flutter (on Eliquis), COPD on home oxygen, fibromyalgia, pulmonary hypertension, history of poor functional status, history of GI bleeding, pulmonary fibrosis, hiatal hernia, ex-smoker, status post gold cholecystectomy/hysterectomy. Is known to have closed grafts for CABG. Has had high risk PCI/left main in [facility] (few years back). Does have history of abnormal nuclear stress test and the plan has been to manage her medically. Has been kept on Eliquis and Plavix as outpatient. She is ex-smoker. Echocardiogram of January 09, 2023 revealed LVEF of 55 to 60%, mild concentric left ventricular hypertrophy, no wall motion abnormality, mild biatrial enlargement, pacing wire in right-sided chambers, mild to moderate aortic insufficiency, mild mitral regurgitation, mild to moderate tricuspid regurgitation and right ventricular systolic pressure of 35 mmHg Echocardiogram of March 07, 2023 had revealed ejection fraction of 55 to 60%, mild concentric left ventricular hypertrophy, mild AI/MR/PI, mild biatrial enlargement, pacemaker wire in the right-sided chambers and right ventricular systolic pressure of 34 mmHg Echocardiogram of September 06, 2023 revealed ejection fraction of 55% and pacemaker in right-sided chambers Echocardiogram of December 26, 2023 had reported ejection fraction of 55-60%, no wall motion abnormality, [id number] aortic insufficiency, mild MR, moderate TR and right ventricular systolic pressure 42 mm Hg Echocardiogram of August 30, 2024 reported ejection fraction of 55-60%, no wall motion abnormality, mild biatrial enlargement, pacemaker in the right-sided chambers, mild AI/MR and moderate tricuspid regurgitation. Right ventricular systolic pressure was assessed at 41 mm Hg. Echocardiogram of December 20, 2024 (performed in the office) revealed ejection fraction of 60-65%, mild concentric left ventricular hypertrophy, pseudo normal LV filling, mild biatrial enlargement, mild right ventricular enlargement with good systolic function, moderate aortic insufficiency, aortic sclerosis with no stenosis, mild mitral annular calcification, [id number] MR/TR and right ventricular systolic pressure of 53 mm Hg. Hemoglobin: 8.7 BNP: 354 Troponin (high sensitive): 4 - 4 - 4 Creatinine: 0.70 Potassium: 4.1 Chest x-ray revealed: IMPRESSION: 1. No acute intrathoracic process. 2. Stable diffuse bilateral interstitial prominence likely due to pulmonary fibrosis. Recommend comparison with chest CT from February 2024, which was not made available on the PACS system for comparison. 3. Cardiomegaly and postoperative changes of the heart. EKG revealed sinus rhythm with nonspecific ST-T changes Telemetry reveals sinus rhythm and occasions of paced rhythm. Patient is a 74-year-old female who presented with chest discomfort for few days. She actually had ran out of Plavix few days back which could have contributed to the clinical picture. Serial troponin has been negative. It is of note that the patient does have old history of nuclear stress test at she decided to managed medically. It is also of note that the patient was recently offered BRAD for questionable valvular disease. vital signs Vital Sign Date Time Temp Pulse Resp B/P (MAP) Pulse Ox O2 Delivery O2 Flow Rate FiO2 01/12/25 06:11 99 Nasal Cannula 2.0 01/12/25 06:11 28 01/12/25 06:11 65 20 01/12/25 05:00 97.9 117/68 (84) 97.9 Total Intake and Output 01/11/25 01/11/25 01/12/25 15:00 23:00 07:00 Intake Total 900 ml 500 ml Balance 900 ml 500 ml medications Current Medications Medications Dose Ordered Sig/Romaine Route Start Time Stop Time Status Last Admin Dose Admin Nitroglycerin 0.4 mg Q5MINP PRN SL 6/5/25 21:45 01/11/25 12:26 0.4 MG Clopidogrel Bisulfate 75 mg DAILY PO 01/10/25 10:00 01/11/25 09:57 75 MG Atorvastatin Calcium 40 mg HS PO 01/09/25 22:00 01/11/25 21:32 40 MG Carvedilol 6.25 mg Q12HR PO 01/09/25 22:00 01/11/25 21:33 6.25 MG Sotalol HCl 80 mg Q12HR PO 01/09/25 22:00 01/11/25 21:33 80 MG Levalbuterol HCl 0.625 mg Q8HR NEB 01/09/25 22:00 01/12/25 06:11 0.625 MG Ipratropium [place] 0.5 mg Q8HR NEB 01/09/25 22:00 01/12/25 06:11 0.5 MG Furosemide 40 mg DAILY PO 01/10/25 10:00 01/11/25 09:58 40 MG Acetaminophen/ Hydrocodone Bitart 1 tab Q6HPRN PRN PO 01/09/25 21:45 01/11/25 17:38 1 TAB Hydromorphone HCl 0.5 mg Q4HPRN PRN IV 01/09/25 21:45 Pantoprazole Sodium 40 mg DAILY@0600 PO 01/10/25 06:00 01/12/25 06:11 40 MG Enoxaparin Sodium 40 mg DAILY SC 01/10/25 10:00 01/11/25 09:59 40 MG Saccharomyces Boulardii 250 mg DAILY PO 01/11/25 10:00 01/11/25 09:57 250 MG Docusate Sodium 100 mg BID PO 01/12/25 10:00 objective Heart: S1 and S2 present. The patienr is A paced 74bpm Lungs: CTAB Abdomen: Benign. Extremities: Distal pulses palpable, 2+. No evidence for peripheral edema laboratory and microbiology Laboratory Tests 01/12/25 05:04 Test 01/12/25 05:04 Range/Units Serum Glucose 92 74-106 mg/dL Assessment/Plan Chest discomfort Coronary artery disease, status post CABG/PCI Paroxysmal atrial flutter, history of (on Eliquis as outpatient) COPD Pulmonary fibrosis Pulmonary hypertension, history of Chronic diastolic heart failure Status post pacemaker Hypokalemia Paroxysmal atrial flutter with RVR Cardiology Recommendations: Manage on telemetry Follow-up electrolytes and kidney function and correct abnormalities, keep potassium above 4 magnesium above 2 Echocardiogram BRAD and left heart catheterization, possibly on Monday. Keep NPO Monday night for Monday morning procedures. Full anti-coagulation for CVA prophylaxis is advised. As there is a plan for possible for catheterization, we will hold Eliquis and give the patient therapeutic Lovenox for now Lovenox, therapeutic dose Plavix 75mg daily given previous PCI Continuation of Statin/Ranexa/Imdur (what patient takes as outpatient) is suggested All available labs, EKGs, and images were personally reviewed Patient's status, findings, and plan of care was discussed and reviewed with supervising physician Dr. Nielsen, who is in agreement with current plan of care. Plan of care discussed with and agreed upon by patient/Primary RN. Prognosis: Guarded Thank you for allowing me to participate in the care of this patient. Further recommendations will depend on clinical progression, hospitalist, and other consultants. Will continue to follow with Primary. If you have any questions, please do not hesitate to contact me. A total of 55 minutes was spent reviewing the patient record, examining the patient, making a diagnostic and therapeutic plan, discussing this plan with medical personnel, following up on diagnostic studies and following the patient for clinical stability excluding any and all procedures. At least 50% of this time was spent in direct, [id number] contact. Plan discussed with: Patient BETYJEANNIERASHIDA SEWAGE DISPOSAL WORKER Jan 12, 2025 08:56
[2025-01-12] MEDS: DOCUSATE SOD 100 MG CAP PO SCH (09:19)
[2025-01-12] MEDS: LACTULOSE 20Gm/30ML SOLN PO ONE (09:21)
--- NOTE | 2025-01-12 12:01 | DVH ---
CTA Chest with intravenous contrast INDICATION: ro PE/ COMPARISON: CT CT ANGIO CHEST CONTRAST on DOS: 02/22/24, CT CT ANGIO CHEST CONTRAST on DOS: 06/01/23, CTACH on DOS: 07/04/22 TECHNIQUE: Multidetector spiral CTA of the chest was performed of the chest with cc of intravenous c ontrast. PULMONARY ANGIOGRAPHY PROTOCOL was utilized using a bolus-tracking technique centered on the main pulmonary artery. Axial, coronal and sagittal multiplanar and MIP reformats were performed. Radiation Dose : 1. Chest: CTDI volume is 9.8 mGy. Dose-length product is 304.34 mGy*cm The dose indicators for CT are the volume Computed Tomography (CT) Dose Index (CTDIvol) and the Dose Length Product (DLP), and are measured in units of mGy and mGy-cm, respectively. These indicators are not patient dose, but values generated from the CT scanner acquisition factors. The report includes radiation exposure data for exposures received during this examination. FINDINGS: Pulmonary artery: No central, lobar or proximal segmental pulmonary embolus. Lower neck: Unremarkable thyroid. Lungs: Diffuse bilateral interstitial thickening. Emphysema. Honeycombing in the bilateral lower lobe s. Central airways: Patent. Pleura: No pneumothorax. No pleural effusions. Heart/Vascular Structures: AICD noted. Cardiomegaly. Coronary artery calcifications and/or stent. No pericardial effusion. Thoracic aorta is normal in caliber. No aneurysm or dissection. Lymph Nodes: No mediastinal or hilar lymphadenopathy. Esophagus:Grossly unremarkable. Musculoskeletal: Status post CABG. Mild thoracic spondylosis. Body wall: Unremarkable. Upper abdomen: Unremarkable. IMPRESSION: 1. No evidence of pulmonary embolism. 2. Emphysema and fibrosis in the lungs. 3. Coronary artery calcifications and/or stent. Cardiomegaly.
--- NOTE | 2025-01-12 14:58 | DVHPNRES ---
Progress Note Date Seen: Jan 12, 2025 Resident Creating Document: CHERRY HARRINGTON RESIDENT Medical Necessity Reason Pt with a Central, PICC or Fol: No Subjective Review of Systems Patient is a 74-year-old female with a past medical history as described below presented to the ED with a chief complaint of chest pain. Patient reports of chest pain starting on Monday described as a shock-like sensation in the lower chest, nonradiating and occurred while the patient was lying in bed, no exacerbating factors and relieved on taking nitroglycerin. Patient has extensive history of coronary artery disease with 3 CABG, multiple PCIs and is following with Dr. Nielsen. She reports of having chest pain on and off but for a while now she did not have any chest pain until Monday when it was severe enough for her to take nitroglycerin. She again had similar chest pain on Monday and then she informed her primary [employer] office. Today she again complained of a similar chest pain and presented to the ER for further workup. Patient currently on 3 L home oxygen because of COPD and pulmonary fibrosis and in the hospital continues to be on 2-3 L oxygen and denies shortness of breath. Patient denies cough, expectoration, fever or chills in the last 1 week. Patient denied orthopnea, PND. Patient was not taking Plavix for the past 5 days. As she ran out. Past medical history: Coronary artery disease status post CABG x3, COPD, pulmonary fibrosis on home oxygen 3 L, GERD Past surgical history: CABG x3, PCI Social history: Patient quit smoking in 2003 and has 35 pack year smoking history, denies current smoking, alcohol, drug use Home medications: Eliquis 2.5 b.i.d., Plavix, atorvastatin, carvedilol (prescribed twice a day but takes only once because of soft blood pressure), Lasix 40 mg once daily, Trelegy Ellipta, sotalol 80 mg, ranolazine 500 mg b.i.d. 01/10 - Patient seen and examined at the bedside. Cardiology consultation- recommended left heart catheterization 01/13. Stool occult is pending. Iron panel pending 01/12 - patient seen and examined. Reports that she is not passing gas. CT angio negative for PE, chronic interstitial changes. Echo pending. KUB ordered. Tele shows normal sinus rhythm with PVCs. Saturating 97 on 2 L. iron panel shows low iron and normal TIBC. Considering oral iron supplements once patient has bowel movements. Objective vital signs Vital Sign Date Time Temp Pulse Resp B/P (MAP) Pulse Ox O2 Delivery O2 Flow Rate FiO2 01/12/25 14:16 66 18 98 01/12/25 14:16 Nasal Cannula 2.0 01/12/25 14:16 28 01/12/25 10:18 109/60 01/12/25 09:00 97.5 97.5 Total Intake and Output 01/11/25 01/11/25 01/12/25 15:00 23:00 07:00 Intake Total 900 ml 500 ml Balance 900 ml 500 ml medications Current Medications Medications Dose Ordered Sig/Romaine Route Start Time Stop Time Status Last Admin Dose Admin Nitroglycerin 0.4 mg Q5MINP PRN SL 01/09/25 21:45 01/11/25 12:26 0.4 MG Clopidogrel Bisulfate 75 mg DAILY PO 01/10/25 10:00 01/12/25 10:03 75 MG Atorvastatin Calcium 40 mg HS PO 01/09/25 22:00 01/11/25 21:32 40 MG Carvedilol 6.25 mg Q12HR PO 01/09/25 22:00 01/12/25 09:18 6.25 MG Sotalol HCl 80 mg Q12HR PO 01/09/25 22:00 01/12/25 09:19 80 MG Levalbuterol HCl 0.625 mg Q8HR NEB 01/09/25 22:00 01/12/25 14:16 0.625 MG Ipratropium [place] 0.5 mg Q8HR NEB 01/09/25 22:00 01/12/25 14:15 0.5 MG Furosemide 40 mg DAILY PO 01/10/25 10:00 01/11/25 09:58 40 MG Acetaminophen/ Hydrocodone Bitart 1 tab Q6HPRN PRN PO 01/09/25 21:45 01/12/25 10:04 1 TAB Hydromorphone HCl 0.5 mg Q4HPRN PRN IV 01/09/25 21:45 Pantoprazole Sodium 40 mg DAILY@0600 PO 01/10/25 06:00 01/12/25 06:11 40 MG Enoxaparin Sodium 40 mg DAILY SC 01/10/25 10:00 01/12/25 10:05 40 MG Saccharomyces Boulardii 250 mg DAILY PO 01/11/25 10:00 01/12/25 09:20 250 MG Docusate Sodium 100 mg BID PO 01/12/25 10:00 01/12/25 09:19 100 MG Examination Patient lying in bed, in no acute distress General: Well-built, afebrile, palor, mucosae are moist Cardiovascular: Regular S1 and S2. No murmurs, gallops or rubs. No JVD elevation. No pedal edema Respiratory: Bilateral d decreased breath sounds on 3 L oxygen, crackles heard. Abdomen: Soft, nontender, nondistended, normoactive bowel sounds, no rebound tenderness, no organomegaly, no masses Genitourinary: Deferred MSK/skin: Mobilizes 4 limbs. Skin is dry and warm Neurological: No motor, no sensitive deficits, normal speech. Pupils are isocoric and reactive. Psych/Mental Status: A/Ox3 laboratory and microbiology Laboratory Tests 01/12/25 05:04 Test 01/12/25 05:04 Range/Units Serum Glucose 92 74-106 mg/dL Labs and/or images reviewed: Labs reviewed by me, Image(s) reviewed by me Problem List/Assessment/Plan Problem List/Assessment/Plan Acute chest pain, rule out ACS Status post CABG 1995, 2002 Multiple PCIs-last RUSSELL 2021 ? Paroxysmal atrial fibrillation on Eliquis History of Pulmonary hypertension Status post pacemaker Ruled out pulmonary embolism at the site - ECG shows no acute ST segment or T-wave changes, sinus rhythm - troponins WNL, BNP 354 -CT angio chest completed, shows no PE. Emphysema and fibrosis of the lungs. Cardiomegaly. Coronary artery calcification seen. 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 Keep NPO Monday night for Monday morning procedures. - continued on Plavix - atorvastatin - echo pending. Last echo shows LV EF was 55-60%. There was no gross wall motion abnormality. - continued on sotalol 80 mg q.12h, carvedilol - held Eliquis has a patient reported of black stool recently and low hemoglobin -cardiology: Continue Plavix, atorvastatin, Lovenox 40 mg sc daily - Lasix 40 mg on hold, resume tomorrow after [facility] Anemia, rule out iron-deficiency H&H on admission 8.7/27 Retic count 5.3 Likely iron-deficiency given iron panel , haptoglobin and LDH normal Stool occult pending Acute on chronic hypoxic respiratory failure History of asbestos exposure COPD, ?Exacerbation History of pulmonary fibrosis - duo nebs q.8 hours - Lasix - chest x-ray shows: Stable diffuse bilateral interstitial prominence likely due to pulmonary fibrosis. Recommend comparison with chest CT from February 2024, which was not made available on the PACS system for comparison. Cardiac diet, NPO starting midnight Lovenox 40 mg sc daily Plan discussed with patient in which all questions have been answered Goals of care discussed with patient for more than 28 minutes, full code status Case discussed with Dr. Garcia, left heart catheterization tomorrow. NPO starting midnight. Plan discussed with: Patient My Orders My Orders Orders - CHERRY HARRINGTON Procedure Category Date Status Time Docusate Sodium PHA 01/12/25 In Process Capsule (Colace 10:00 Dietary Evaluation Review Comments: 1) Encourage optimal PO intake. Current PO intake meets increased protein needs 2) Follow-up with cardiology and pulmonology 3) Continue to monitor I&O, labs, and skin integrity Expected Outcomes/Goals: 1) appetite and labs to improve 2) f/u in 3-5 days Date of Service: Jan 12, 2025 Billing Provider: AUDREY GARCIA MD Common Visit Codes: [id number] INP/OBS CARE(HIGH) CHERRY HARRINGTON Jan 12, 2025 14:58 AUDREY GARCIA MD Jan 13, 2025 02:05
--- NOTE | 2025-01-12 16:50 | DVH ---
Date: 01/12/2025 04:04 PM Examination: XY KUB ABDOMEN SINGLE VIEW History: Not passing gas or BM Comparison: None TECHNIQUE: Frontal views of the abdomen was obtained. FINDINGS: Bowel gas pattern is unremarkable. Stool burden throughout the colon. Surgical clips right upper quadrant from previous cholecystectomy. The lung bases are unremarkable. No acute osseous abnormality identified. IMPRESSION: 1. Nonobstructive bowel gas pattern. 2. Large stool burden throughout the colon
[2025-01-13] VITALS (23 sets, daily range): BP systolic 101–190; BP diastolic 41–87; PULSE 61–92; RESP 12–18; TEMP 97.6–98.1; O2SAT 95–100
[2025-01-13 07:43] LABS: Basophils # (auto) 0 10 ^3/uL (0-0.2); Basophils % (auto) 0.5 % (0.0-2.0); Eosinophils # (auto) 0.2 10 ^3/uL (0-0.8); Eosinophils % (auto) 3.4 % (0.0-7.0); Hematocrit 34.1 % (36.0-46.0); Hemoglobin 11.5 g/dL (12.2-16.2); Lymphocytes % (auto) 45.8 % (10.0-50.0); Mean Corpuscular Hemoglobin 30.3 pg (28.0-32.0); Mean Corpuscular Hgb Conc. 33.7 g/dL (32.0-36.0); Mean Corpuscular Volume 90.1 fL (80.0-100.0); Monocytes # (auto) 0.4 10 ^3/uL (0-1.3); Neutrophils # (auto) 1.9 10 ^3/uL (1.6-8.6); Neutrophils % (auto) 42.3 % (37.0-80.0); Nucleated Red Blood Cells % 0.2 %; Platelet Count (auto) 267 10^3/uL (140-450); Red Blood Cells 3.78 10^6/uL (4.0-5.20); Red Cell Distribution Width 15.1 % (11.8-14.3); White Blood Cell 4.5 10^3/uL (4.4-10.8)
--- NOTE | 2025-01-13 07:52 | DVHSR ---
APPROVED REPORT EXAM: Two-dimensional and M-mode echocardiogram with Doppler and color Doppler. Blood Pressure: 105/50 mmHg INDICATION requsted by Surgery/Intervention Pacemaker: CABG: RISK FACTORS Obesity: Height: 5'3, Weight: 152 DIMENSIONS LVDd3.9 (3.8-5.7cm)LA (2D)4.5 (1.9-4.0cm)Aortic Root2.5 (2.0-3.7cm) LVDs2.7 (2.5-4.0cm)LA (MM) (1.9-4.0cm)Aortic Cusp Exc1.3 (1.5-2.0cm) EF (%) 55.0 (55-70%)Rt. Atrium4.1 (1.9-4.0cm)Asc. Aorta2.4 cm IVSd1.2 (0.7-1.1cm)RV (D) (1.8-2.4cm) PWd1.0 (0.7-1.1cm) Mitral Valve MitralMitral Stenosis E wave1.02m/sMV Mean GR.mmHg A wave0.92m/sMV Peak GR.95mmHg E/A ratio1.12D MVAcm2 DECEL [id number] 1/2 Timems Aortic Valve Aortic ValveAortic Stenosis V10.66m/Jem Mean GR.7mmHg V21.76m/Jem Peak GR.12mmHg LVOT Diameter1.7 (1.8-2.4cm)Doppler AVA0.85cm2 AI P 1/2 Pfdy987.10ms Tricuspid Valve TR Velocity3.25m/s [id number] Conclusion Left ventricle: Mild concentric left ventricular hypertrophy was seen. LVEF was 60-65%. There was no gross wall motion abnormality. Pseudo normal left ventricle diastolic function was observed. Right ventricle: Right ventricle was dilated with preserved systolic function. Both atria were dila kim. Pacing wire was seen in right-sided chambers. Aortic valve: Aortic valve was not well visualized. Aortic sclerosis with no stenosis was seen. Mi it-[id number] aortic insufficiency was seen. Mitral valve revealed mild mitral regurgitation. Tricuspid valve: Tethered valve leaflets secondary to right ventricular dilatation was seen. Modera te tricuspid regurgitation was observed. Pulmonary valve was not well visualized. IVC was dilated. Right ventricular systolic function was assessed at 67 mm Hg. There was no pericar dial effusion. Component of pulmonary hypertension is considered. Recognizing the pseudo normal left ventricular di astolic function, type 2 pulmonary hypertension is likely. Clinical correlation is advised.
[2025-01-13 08:08] LABS: Anion Gap 11 (5-15); Carbon Dioxide 28 mmol/L (20-31); Chloride 102 mmol/L (98-107); Sodium 141 mmol/L (136-145)
[2025-01-13 08:14] LABS: BUN/Creatinine Ratio 11.8 (10.0-20.0); Blood Urea Nitrogen 12 mg/dL (9-23); Calcium 10.6 mg/dL (8.7-10.4); Glucose 86 mg/dL (74-106)
[2025-01-13 08:20] LABS: Partial Thromboplastin Time 27.4 SEC (24.5-34.5); Prothrombin Time 10.6 sec (9.3-11.8)
[2025-01-13] MEDS: POLYETHYLENE GLYCOL 17 GM PWDR PO ONE ×2 (08:52→18:31)
--- NOTE | 2025-01-13 09:24 | DVHPN2 ---
Progress Note - Dictate Date Seen: Jan 13, 2025 Medical Necessity Reason Pt with a Central, PICC or Fol: No vital signs Vital Sign Date Time Temp Pulse Resp B/P (MAP) Pulse Ox O2 Delivery O2 Flow Rate FiO2 01/13/25 08:54 70 133/63 01/13/25 05:53 18 99 01/13/25 05:42 Nasal Cannula 3.0 01/13/25 05:42 32 01/13/25 05:00 97.6 97.6 Total Intake and Output 01/12/25 01/12/25 01/13/25 15:00 23:00 07:00 Intake Total 890 ml 480 ml Output Total 800 ml Balance 890 ml -320 ml medications Current Medications Medications Dose Ordered Sig/Romaine Route Start Time Stop Time Status Last Admin Dose Admin Nitroglycerin 0.4 mg Q5MINP PRN SL 01/09/25 21:45 01/11/25 12:26 0.4 MG Clopidogrel Bisulfate 75 mg DAILY PO 01/10/25 10:00 01/13/25 08:54 75 MG Atorvastatin Calcium 40 mg HS PO 01/09/25 22:00 01/12/25 21:38 40 MG Carvedilol 6.25 mg Q12HR PO 01/09/25 22:00 01/13/25 08:53 6.25 MG Sotalol HCl 80 mg Q12HR PO 01/09/25 22:00 01/13/25 08:54 80 MG Levalbuterol HCl 0.625 mg Q8HR NEB 01/09/25 22:00 01/13/25 05:42 0.625 MG Ipratropium [place] 0.5 mg Q8HR NEB 01/09/25 22:00 01/13/25 05:42 0.5 MG Furosemide 40 mg DAILY PO 01/10/25 10:00 Hold 01/11/25 09:58 40 MG Acetaminophen/ Hydrocodone Bitart 1 tab Q6HPRN PRN PO 01/09/25 21:45 01/13/25 08:55 1 TAB Hydromorphone HCl 0.5 mg Q4HPRN PRN IV 01/09/25 21:45 Pantoprazole Sodium 40 mg DAILY@0600 PO 01/10/25 06:00 01/12/25 06:11 40 MG Enoxaparin Sodium 40 mg DAILY SC 01/10/25 10:00 01/13/25 08:53 40 MG Saccharomyces Boulardii 250 mg DAILY PO 01/11/25 10:00 01/13/25 08:54 250 MG Docusate Sodium 100 mg BID PO 01/12/25 10:00 01/13/25 08:53 100 MG laboratory and microbiology Laboratory Tests 01/13/25 05:45 Test 01/13/25 05:45 Range/Units Serum Glucose 86 74-106 mg/dL Assessment/Plan Patient is a 74-year-old female who presented to the hospital for few days of chest discomfort. She is known to our practice from before and outside. She was recently in the office and BRAD was offered to her for further evaluation of aortic valve. Does have a pacemaker which was interrogated just recently and was working good. Does have baseline history of coronary artery disease and status post bypass surgery. Is known to have abnormal nuclear stress test and the patient had previously decided to manage it medically. Since admission, serial troponin has been negative. It is of note that the patient was supposed to be on Plavix and Eliquis as outpatient. He ran out of Plavix around 5 days ago which could have contributed to the clinical picture. Lying comfortably flat in bed. No JVD. pink mucosa. Lungs reveal scattered rhonchi. Cardiac: Regular, no thrills/murmur. Abdomen is soft. No hepatomegaly. Bowel sounds positive. Lower extremities do not reveal edema. Dorsalis pedis is 2+ bilateral Past medical history includes diabetes mellitus, hyperlipidemia, hypertension, diastolic heart failure, peripheral artery disease, GERD, anxiety, anemia, asthma, coronary artery disease, status post CABG and PCI, status post pacemaker implantation ([employer]), status post old CVA, paroxysmal atrial flutter (on Eliquis), COPD on home oxygen, fibromyalgia, pulmonary hypertension, history of poor functional status, history of GI bleeding, pulmonary fibrosis, hiatal hernia, ex-smoker, status post gold cholecystectomy/hysterectomy. Is known to have closed grafts for CABG. Has had high risk PCI/left main in [facility] (few years back). Does have history of abnormal nuclear stress test and the plan has been to manage her medically. Has been kept on Eliquis and Plavix as outpatient. She is ex-smoker. Echocardiogram of January 09, 2023 revealed LVEF of 55 to 60%, mild concentric left ventricular hypertrophy, no wall motion abnormality, mild biatrial enlargement, pacing wire in right-sided chambers, mild to moderate aortic insufficiency, mild mitral regurgitation, mild to moderate tricuspid regurgitation and right ventricular systolic pressure of 35 mmHg Echocardiogram of March 07, 2023 had revealed ejection fraction of 55 to 60%, mild concentric left ventricular hypertrophy, mild AI/MR/PI, mild biatrial enlargement, pacemaker wire in the right-sided chambers and right ventricular systolic pressure of 34 mmHg Echocardiogram of September 06, 2023 revealed ejection fraction of 55% and pacemaker in right-sided chambers Echocardiogram of December 26, 2023 had reported ejection fraction of 55-60%, no wall motion abnormality, [id number] aortic insufficiency, mild MR, moderate TR and right ventricular systolic pressure 42 mm Hg Echocardiogram of August 30, 2024 reported ejection fraction of 55-60%, no wall motion abnormality, mild biatrial enlargement, pacemaker in the right-sided chambers, mild AI/MR and moderate tricuspid regurgitation. Right ventricular systolic pressure was assessed at 41 mm Hg. Echocardiogram of December 20, 2024 (performed in the office) revealed ejection fraction of 60-65%, mild concentric left ventricular hypertrophy, pseudo normal LV filling, mild biatrial enlargement, mild right ventricular enlargement with good systolic function, moderate aortic insufficiency, aortic sclerosis with no stenosis, mild mitral annular calcification, gcjo-gw-tuyvhcto MR/TR and right ventricular systolic pressure of 53 mm Hg. Hemoglobin: 8.7 - 9.1 - 9.8 - 11.5 BNP: 354 Troponin (high sensitive): 4 - 4 - 4 Creatinine: 0.70 - 0.68 - 0.62 - 1.02 Potassium: 4.1 - 3.8 - 3.7 - 4.0 D-Dimer: 0.28 (WNL) TSH: 1.18 Chest x-ray revealed: IMPRESSION: 1. No acute intrathoracic process. 2. Stable diffuse bilateral interstitial prominence likely due to pulmonary fibrosis. Recommend comparison with chest CT from February 2024, which was not made available on the PACS system for comparison. 3. Cardiomegaly and postoperative changes of the heart. Repeat chest xry revealed: Frontal chest radiograph demonstrates no acute osseous or superficial soft tissue abnormalities. Left chest wall dual-chamber pacemaker. The trachea is midline. Cardiomegaly. Diffuse coarsened interstitial markings may reflect pulmonary edema and/or interstitial pneumonitis. Small left pleural effusion with compressive atelectasis. A superimposed infectious process is not excluded. No pneumothorax. CTA of the lungs revealed: IMPRESSION: 1. No evidence of pulmonary embolism. 2. Emphysema and fibrosis in the lungs. 3. Coronary artery calcifications and/or stent. Cardiomegaly. KUB reported: IMPRESSION: 1. Nonobstructive bowel gas pattern. 2. Large stool burden throughout the colon EKG revealed sinus rhythm with nonspecific ST-T changes Telemetry reveals sinus rhythm and occasions of paced rhythm. Echocardiogram reported: Left ventricle: Mild concentric left ventricular hypertrophy was seen. LVEF was 60-65%. There was no gross wall motion abnormality. Pseudo normal left ventricle diastolic function was observed. Right ventricle: Right ventricle was dilated with preserved systolic function. Both atria were dilated. Pacing wire was seen in right-sided chambers. Aortic valve: Aortic valve was not well visualized. Aortic sclerosis with no stenosis was seen. [id number] aortic insufficiency was seen. Mitral valve revealed mild mitral regurgitation. Tricuspid valve: Tethered valve leaflets secondary to right ventricular dilatation was seen. Moderate tricuspid regurgitation was observed. Pulmonary valve was not well visualized. IVC was dilated. Right ventricular systolic function was assessed at 67 mm Hg. There was no pericardial effusion. Component of pulmonary hypertension is considered. Recognizing the pseudo normal left ventricular diastolic function, type 2 pulmonary hypertension is likely. Clinical correlation is advised. Patient is a 74-year-old female who presented with chest discomfort for few days. She actually had ran out of Plavix few days back which could have contributed to the clinical picture. Serial troponin has been negative. It is of note that the patient does have old history of nuclear stress test at she decided to managed medically. It is also of note that the patient was recently offered BRAD for questionable valvular disease. Chest discomfort Coronary artery disease, status post CABG/PCI Paroxysmal atrial flutter, history of (on Eliquis as outpatient) COPD/Emphysema Pulmonary fibrosis Pulmonary hypertension, history of Chronic diastolic heart failure Status post pacemaker Hypokalemia Paroxysmal atrial flutter with RVR Cardiac suggestions for management: Manage on telemetry Follow-up electrolytes and kidney function and correct abnormalities, keep potassium above 4 magnesium above 2 BRAD and Right/left heart catheterization, later today Full anti-coagulation for CVA prophylaxis is advised. As there is a plan for possible for catheterization, we will hold Eliquis and give the patient therapeutic Lovenox for now Lovenox, therapeutic dose Plavix 75mg daily given previous PCI Continuation of Statin/Ranexa/Imdur (what patient takes as outpatient) is suggested Further evaluation and management depends on the above and clinical course A total of 55 minutes was spent reviewing the patient record, examining the patient, making a diagnostic and therapeutic plan, discussing this plan with medical personnel, following up on diagnostic studies and following the patient for clinical stability excluding any and all procedures. At least 50% of this time was spent in direct, [id number] contact. Thank you for allowing me to participate in this patient's care. Further recommendations will depend on patient's clinical course. Please do not hesitate to contact me if you have any questions or concerns. This medical document was created using electronic medical record system with [employer] computerized dictation system. Although this document has been carefully reviewed, there may still be some phonetic and typographical errors. These areas are purely typographical due to the imperfection of the software programs, and do not reflect any compromise in the patient's medical care. Dietary Evaluation Review Comments: 1) Encourage optimal PO intake. Current PO intake meets increased protein needs 2) Follow-up with cardiology and pulmonology 3) Continue to monitor I&O, labs, and skin integrity Expected Outcomes/Goals: 1) appetite and labs to improve 2) f/u in 3-5 days Plan discussed with: Patient, Other (nurse) AJAY SMALLWOOD MD Jan 13, 2025 09:24
[2025-01-13] MEDS: ISOSORBIDE MONONITRATE ER 60 MG TAB PO SCH (10:00)
[2025-01-13] MEDS: RANOLAZINE ER 500 MG TAB PO SCH (10:00)
[2025-01-13] MEDS: IODIXANOL 320MG/ML 100ML BTL IV ONE ×3 (13:40→15:23)
[2025-01-13] MEDS: fentaNYL CITRATE 100 MCG/2 ML VL IV ONE (13:45)
[2025-01-13] MEDS: LIDOCAINE VISCOUS 2% 15ML UD PO ONE (13:45)
[2025-01-13] MEDS: MIDAZOLAM HCL 2MG/2ML 2ml VIAL (1mg/ml) IV ONE (13:45)
[2025-01-13] MEDS: SODIUM CHL 0.9% 0 ML ONE (13:54)
[2025-01-13] MEDS: MIDAZOLAM HCL 2MG/2ML 2ml VIAL (1mg/ml) ONE (13:54)
[2025-01-13] MEDS: fentaNYL CITRATE 100 MCG/2 ML VL ONE (13:54)
[2025-01-13] MEDS: ANGIOMAX 250 MG VIAL IV ONE (13:54)
[2025-01-13] MEDS: LIDOCAINE 2%HCL (LOCAL ANESTH.) INJ 20ML MDV ONE (13:55)
--- NOTE | 2025-01-13 14:20 | DVHOP2 ---
Operative Report Trans-Esophageal Echocardiogram PROCEDURE REPORT Date of Service: 01/13/2025 Spring Clipper: Ajay Smallwood MD PROCEDURE PERFORMED: Transesophageal echocardiogram, conscious sedation administration and supervision, more than 15 minutes. Intra cardiac bubble study. PREOPERATIVE DIAGNOSES: r/o Valvular heart disease. DESCRIPTION OF PROCEDURE: The patient signed informed consent understanding risks, benefits and alternatives of the procedure, she wished to proceed. The patient was given 15 mL of oral viscous lidocaine. She was placed in a left lateral decubitus position and conscious sedation was administered per medical laboratory technicians protocol (1 mg of Versed and 25 mcg of Fentanyl). I administered a bite block into her mouth and a BRAD probe into the mid esophagus without any difficulties or complications. Multiple planar images were obtained. Bubble study was also performed. At the completion of procedure, BRAD probe was removed and there were no immediate complications. Vitals signs were stable throughout the procedure. FINDINGS: 1. Left ventricle: Mild concentrated Left ventricular hypertrophy was seen. LVEF was 60%. There was no gross wall motion abnormality seen. 2. Right ventricle: RV was mildly dilated. Pacing wire was seen in it. 3. Left atrium: LA enlarged 4. Right atrium: RA was enlarged with pacing wire. 5. Mitral valve: Mild Mitral regurgitation, no significant stenosis, normal functioning valve. There was no vegetation 6. Left atrial appendage: No evidence of thrombus. 7. Aortic valve: Trileaflet valve. No stenosis. Mild to moderate Aortic Insufficiency was seen. There was no vegetation 8. Pulmonic valve: Trivial pulmonic insufficiency. No significant stenosis. 9. Tricuspid valve: Moderate tricuspid regurgitation. There was no vegetation 10. Interatrial septum: Negative color flow for right to left shunt was observed. Bubble study was performed: negative for shunt 11. Pericardium: No significant effusion. 12. Thoracic aorta: No significant plaquing. AJAY SMALLWOOD MD Jan 13, 2025 14:20
[2025-01-13] MEDS: SODIUM CHLORIDE 0.9% 1,000 ML IV ONE (16:00)
--- NOTE | 2025-01-13 16:50 | DVHOP2 ---
Operative Report Procedures performed: Right and left heart catheterization Bypass angiography Aortic root angiography Moderate sedation lasting more than 45 minutes Diagnosis: Multivessel coronary artery disease LVEF of around 50% Apical aneurysm Increased LVEDP (19 mm Hg) No pulmonary hypertension Patent left main stent into LCX (dominant vessel) with no significant disease Proximal LAD was PHONE COUNSELOR with minor parallel collaterals. LAD was a diffusely diseased vessel with areas of focal aneurysm Presence of 2 ramus intermedius One of the ramus intermedius is with mild disease Second ramus: Relatively small vessel with mild disease. There was SVG 'also' nourishing it. SVG itself had ostial and middle SVG section disease (decision was made to manage it medically) DANIELLE was atretic but patent There was 2 other SVG's which were PHONE COUNSELOR at ostium Cardiac suggestion for management: Optimized medical therapy Continuation of full anticoagulation for history of paroxysmal atrial flutter is suggested (patient on Eliquis) Antianginal therapy Findings: PCW: 9/16/11 mm Hg PA: 10/30/18 mm Hg RV: 29/-1/4 mm Hg RA: 3/5/3 mm Hg Cardiac output: 2.8 L/min Cardiac index: 1.61 L/min/M LV: 148/5/19 mm Hg LVEF: 50% with apical aneurysm There was no transaortic valve pressure gradient Left main: There was patent stent in left main into the LCX. LAD: LAD was a severely diffuse disease with PHONE COUNSELOR at its proximal section. There was minor parallel collaterals. Lad itself had areas with aneurysm There were 2 ramus intermedius available. One of the ramus intermedius had mild diffuse disease The other ramus intermedius was relatively small vessel with mild disease. This other ramus intermedius was also nourished via a patent SVG. This SVG itself had ostial and mid SVG section disease LCX: LCX was a large vessel and dominant (provided LPDA). There was patent radha nt in left main into the LCX. There was mild disease in stent and LCX RCA ostium could not be located (even with multiple aortic root shots) We could identify 2 SVG ostiums which were PHONE COUNSELOR at their take off. DANIELLE angiography revealed atretic DANIELLE which was patent to severely diffused diseased LAD. Presentation: Patient is a 74-year-old female who presented with atypical chest discomfort. She did have old history of abnormal nuclear stress test which she had decided to managed medically previously. There was some question about valvular disease and the patient had TTE/BRAD. Patient was sent for right and left heart catheterization to rule out pulmonary hypertension and significant coronary artery disease. Procedure in detail: After obtaining informed consent, the patient was brought to the cath lab tech. She was prepped and draped in sterile fashion. One mg of Versed and 25 mcg of fentanyl were used for moderate sedation (lasting more than 45 minutes). Under fluoroscopy guidance and using a micropuncture, the right femoral artery was accessed. After confirming a good access point, the micropuncture sheath was exchanged over a wire to a 6 Chadian femoral sheath. Under fluoroscopy guidance and using a micropuncture, the left femoral vein was accessed. The micropuncture sheath was exchanged over a wire to a 6 Chadian femoral sheath. At this point we proceeded to perform right heart catheterization (6 [place] catheter) via the left femoral vein/sheath. Pressures were obtained and cardiac output was calculated (thermodilution technique). We did not find pulmonary hypertension. At this point we decided to proceed with left heart catheterization. A 6 Chadian JL4 diagnostic catheter was used to perform left coronary angiography. A 6 Chadian JR4 diagnostic catheter was used to attempt identifying the location of the RCA. The same catheter was used to identify SVG ostiums. We identified 2 closed SVG ostiums. We identified the 3rd SVG ostium which nourished the ramus intermedius. Using the same 6 Ch[place] JR4 diagnostic catheter we performed DANIELLE angiography (identified an atretic, but patent DANIELLE). We did recognize the disease in the SVG which was nourishing in the ramus intermedius. We recognized that the ramus itself was a small-vessel and also that it was patent from its ostium (with good competitive flow). Decision was made to manage it medically. A 6 Chadian pigtail catheter was used to perform left heart catheterization (obtaining pressures and performing left ventriculography) and also multiple aortic root aortography. There was no dissection/hematoma/perforation. Patient tolerated the procedure with no complication. Total bleeding was less than 15 mL. Right femoral artery access site was managed by deploying an Angio-Seal device. Left femoral vein access was managed by manual pressure. Fluoroscopy time: 14.5 minutes contrast: 240 mL of Visipaque AJAY SMALLWOOD MD Jan 13, 2025 16:50
--- NOTE | 2025-01-13 16:54 | DVHPNRES ---
Progress Note Date Seen: Jan 13, 2025 Resident Creating Document: CHERRY HARRINGTON RESIDENT Medical Necessity Reason Pt with a Central, PICC or Fol: No Subjective Review of Systems Patient is a 74-year-old female with a past medical history as described below presented to the ED with a chief complaint of chest pain. Patient reports of chest pain starting on Monday described as a shock-like sensation in the lower chest, nonradiating and occurred while the patient was lying in bed, no exacerbating factors and relieved on taking nitroglycerin. Patient has extensive history of coronary artery disease with 3 CABG, multiple PCIs and is following with Dr. Nielsen. She reports of having chest pain on and off but for a while now she did not have any chest pain until Monday when it was severe enough for her to take nitroglycerin. She again had similar chest pain on Monday and then she informed her primary photovoltaic solar cell designer office. Today she again complained of a similar chest pain and presented to the ER for further workup. Patient currently on 3 L home oxygen because of COPD and pulmonary fibrosis and in the hospital continues to be on 2-3 L oxygen and denies shortness of breath. Patient denies cough, expectoration, fever or chills in the last 1 week. Patient denied orthopnea, PND. Patient was not taking Plavix for the past 5 days. As she ran out. Past medical history: Coronary artery disease status post CABG x3, COPD, pulmonary fibrosis on home oxygen 3 L, GERD Past surgical history: CABG x3, PCI Social history: Patient quit smoking in 2003 and has 35 pack year smoking history, denies current smoking, alcohol, drug use Home medications: Eliquis 2.5 b.i.d., Plavix, atorvastatin, carvedilol (prescribed twice a day but takes only once because of soft blood pressure), Lasix 40 mg once daily, Trelegy Ellipta, sotalol 80 mg, ranolazine 500 mg b.i.d. 01/10 - Patient seen and examined at the bedside. Cardiology consultation- recommended left heart catheterization 01/13. Stool occult is pending. Iron panel pending 01/12 - patient seen and examined. Reports that she is not passing gas. CT angio negative for PE, chronic interstitial changes. Echo pending. KUB ordered. Tele shows normal sinus rhythm with PVCs. Saturating 97 on 2 L. iron panel shows low iron and normal TIBC. Considering oral iron supplements once patient has bowel movements. 01/13-KUB shows large stool burden, nonobstructive. Fleet enema ordered. Patient underwent BRAD, was negative for shunt or left appendage. Mild consulted LVH, LVEF 60%. Mild MR, moderate TR, undergoing left heart catheterization today. Objective vital signs Vital Sign Date Time Temp Pulse Resp B/P (MAP) Pulse Ox O2 Delivery O2 Flow Rate FiO2 01/13/25 16:12 70 12 109/51 (70) 100 01/13/25 12:59 97.6 97.6 01/13/25 10:00 Nasal Cannula* 3 32 Total Intake and Output 01/12/25 01/12/25 01/13/25 15:00 23:00 07:00 Intake Total 890 ml 480 ml Output Total 800 ml Balance 890 ml -320 ml medications Current Medications Medications Dose Ordered Sig/Romaine Route Start Time Stop Time Status Last Admin Dose Admin Nitroglycerin 0.4 mg Q5MINP PRN SL 01/09/25 21:45 01/11/25 12:26 0.4 MG Clopidogrel Bisulfate 75 mg DAILY PO 01/10/25 10:00 01/13/25 08:54 75 MG Atorvastatin Calcium 40 mg HS PO 01/09/25 22:00 01/12/25 21:38 40 MG Carvedilol 6.25 mg Q12HR PO 01/09/25 22:00 01/13/25 08:53 6.25 MG Sotalol HCl 80 mg Q12HR PO 01/09/25 22:00 01/13/25 08:54 80 MG Levalbuterol HCl 0.625 mg Q8HR NEB 01/09/25 22:00 01/13/25 05:42 0.625 MG Ipratropium [place] 0.5 mg Q8HR NEB 01/09/25 22:00 01/13/25 05:42 0.5 MG Furosemide 40 mg DAILY PO 01/10/25 10:00 Hold 01/11/25 09:58 40 MG Acetaminophen/ Hydrocodone Bitart 1 tab Q6HPRN PRN PO 01/09/25 21:45 01/13/25 08:55 1 TAB Hydromorphone HCl 0.5 mg Q4HPRN PRN IV 01/09/25 21:45 Pantoprazole Sodium 40 mg DAILY@0600 PO 01/10/25 06:00 01/12/25 06:11 40 MG Enoxaparin Sodium 40 mg DAILY SC 01/10/25 10:00 01/13/25 08:53 40 MG Saccharomyces Boulardii 250 mg DAILY PO 01/11/25 10:00 01/13/25 08:54 250 MG Docusate Sodium 100 mg BID PO 01/12/25 10:00 01/13/25 08:53 100 MG Ranolazine 500 mg BID PO 01/13/25 10:00 Isosorbide Mononitrate 60 mg DAILY PO 01/13/25 10:00 Examination Patient lying in bed, in no acute distress General: Well-built, afebrile, palor, mucosae are moist Cardiovascular: Regular S1 and S2. No murmurs, gallops or rubs. No JVD elevation. No pedal edema Respiratory: Bilateral d decreased breath sounds on 3 L oxygen, crackles heard. Abdomen: Soft, nontender, nondistended, normoactive bowel sounds, no rebound tenderness, no organomegaly, no masses Genitourinary: Deferred MSK/skin: Mobilizes 4 limbs. Skin is dry and warm Neurological: No motor, no sensitive deficits, normal speech. Pupils are isocoric and reactive. Psych/Mental Status: A/Ox3 laboratory and microbiology Laboratory Tests 01/13/25 05:45 Test 01/13/25 05:45 Range/Units Serum Glucose 86 74-106 mg/dL Labs and/or images reviewed: Labs reviewed by me, Image(s) reviewed by me Problem List/Assessment/Plan Problem List/Assessment/Plan Acute on chronic hypoxic respiratory failure Acute chest pain, rule out ACS Status post CABG 1995, 2002 Multiple PCIs-last RUSSELL 2021 ? Paroxysmal atrial fibrillation on Eliquis History of Pulmonary hypertension Status post pacemaker Ruled out pulmonary embolism at this time - ECG shows no acute ST segment or T-wave changes, sinus rhythm - troponins WNL, BNP 354 -CT angio chest completed, shows no PE. Emphysema and fibrosis of the lungs. Cardiomegaly. Coronary artery calcification seen. - primary photovoltaic solar cell designer consulted- BRAD, was negative for shunt or left appendage. Mild consulted LVH, LVEF 60%. Mild MR, moderate TR, undergoing left heart catheterization today. - continued on Plavix - atorvastatin - echocardiogram 01/13/2025 shows mild LVH, EF 60%. Pseudo normal LV diastolic dysfunction. - continued on sotalol 80 mg q.12h, carvedilol - held Elijahaira has a patient reported of black stool recently and low hemoglobin -cardiology: Continue Plavix, atorvastatin, Lovenox 40 mg sc daily - Lasix 40 mg on hold, resume tomorrow after [facility] Anemia, likely iron-deficiency H&H on admission 8.7/ Retic count 5.3 Likely iron-deficiency given iron panel showing low iron and normal TIBC , haptoglobin and LDH normal Stool occult pending Acute on chronic hypoxic respiratory failure History of asbestos exposure COPD, no exacerbation History of pulmonary fibrosis - duo nebs q.8 hours - Lasix - chest x-ray shows: Stable diffuse bilateral interstitial prominence likely due to pulmonary fibrosis. Recommend comparison with chest CT from February 2024, which was not made available on the PACS system for comparison. Cardiac diet, Lovenox 40 mg sc daily Plan discussed with patient in which all questions have been answered Goals of care discussed with patient for more than 28 minutes, full code status Case discussed with Dr. Holman. Undergoing left heart catheterization. Plan discussed with: Patient My Orders My Orders Orders - CHERRY HARRINGTON RESIDENT Procedure Category Date Status Time Tap Water Enema ORDERS 01/13/25 Transmitted 14:11 Dietary Evaluation Review Comments: 1) Encourage optimal PO intake. Current PO intake meets increased protein needs 2) Follow-up with cardiology and pulmonology 3) Continue to monitor I&O, labs, and skin integrity Expected Outcomes/Goals: 1) appetite and labs to improve 2) f/u in 3-5 days Date of Service: Jan 13, 2025 Billing Provider: POLINA HOLMAN MD Common Visit Codes: [id number] INP/OBS CARE(HIGH) CHERRY HARRINGTON Jan 13, 2025 16:54 POLINA HOLMAN MD Jan 13, 2025 22:43
[2025-01-13] MEDS: SUCRALFATE 1 GM/10 ML ORAL SUSP PO SCH (20:48)
[2025-01-13] MEDS: APIXABAN 5 MG TAB PO SCH (20:51)
[2025-01-13] MEDS: HYDROmorphone HCL 2 MG/ML VL/or syr IV PRN (20:53)
[2025-01-14] VITALS (10 sets, daily range): BP systolic 109–130; BP diastolic 54–71; PULSE 65–72; RESP 12–20; TEMP 36.2; O2SAT 99–100
[2025-01-14 06:45] LABS: Basophils # (auto) 0 10 ^3/uL (0-0.2); Basophils % (auto) 0.9 % (0.0-2.0); Eosinophils # (auto) 0.3 10 ^3/uL (0-0.8); Eosinophils % (auto) 6.4 % (0.0-7.0); Hematocrit 29.9 % (36.0-46.0); Hemoglobin 9.7 g/dL (12.2-16.2); Lymphocytes # (auto) 0.5 10 ^3/uL (0.4-5.4); Lymphocytes % (auto) 10.5 % (10.0-50.0); Mean Corpuscular Hemoglobin 30.2 pg (28.0-32.0); Mean Corpuscular Hgb Conc. 32.5 g/dL (32.0-36.0); Mean Corpuscular Volume 93.1 fL (80.0-100.0); Monocytes # (auto) 0.5 10 ^3/uL (0-1.3); Monocytes % (auto) 10.1 % (0.0-12.0); Neutrophils # (auto) 3.8 10 ^3/uL (1.6-8.6); Neutrophils % (auto) 72.1 % (37.0-80.0); Platelet Count (auto) 217 10^3/uL (140-450); Red Blood Cells 3.22 10^6/uL (4.0-5.20); White Blood Cell 5.2 10^3/uL (4.4-10.8)
[2025-01-14 06:46] LABS: Anion Gap 10 (5-15); Calcium 9.1 mg/dL (8.7-10.4); Carbon Dioxide 28 mmol/L (20-31); Chloride 102 mmol/L (98-107); Potassium 3.8 mmol/L (3.5-5.1); Sodium 140 mmol/L (136-145)
[2025-01-14 06:52] LABS: BUN/Creatinine Ratio 14.8 (10.0-20.0); Glucose 80 mg/dL (74-106)
[2025-01-14 06:53] LABS: Magnesium 1.9 mg/dL (1.6-2.6)
[2025-01-14 07:02] LABS: Blood Urea Nitrogen 8 mg/dL (9-23)
--- NOTE | 2025-01-14 07:14 | DVHPN2 ---
Progress Note - Dictate Date Seen: Jan 14, 2025 Medical Necessity Reason Pt with a Central, PICC or Fol: No vital signs Vital Sign Date Time Temp Pulse Resp B/P (MAP) Pulse Ox O2 Delivery O2 Flow Rate FiO2 01/14/25 06:37 70 20 100 01/14/25 06:31 Nasal Cannula 3.0 01/14/25 06:31 32 01/14/25 05:00 98.1 128/71 (90) 98.1 Total Intake and Output 01/13/25 01/13/25 01/14/25 15:00 23:00 07:00 Intake Total 150 ml 350 ml Balance 150 ml 350 ml medications Current Medications Medications Dose Ordered Sig/Romaine Route Start Time Stop Time Status Last Admin Dose Admin Nitroglycerin 0.4 mg Q5MINP PRN SL 01/09/25 21:45 01/11/25 12:26 0.4 MG Clopidogrel Bisulfate 75 mg DAILY PO 01/10/25 10:00 01/13/25 08:54 75 MG Atorvastatin Calcium 40 mg HS PO 01/09/25 22:00 01/13/25 20:52 40 MG Carvedilol 6.25 mg Q12HR PO 01/09/25 22:00 01/13/25 20:50 6.25 MG Sotalol HCl 80 mg Q12HR PO 01/09/25 22:00 01/13/25 20:55 80 MG Levalbuterol HCl 0.625 mg Q8HR NEB 01/09/25 22:00 01/14/25 06:31 0.625 MG Ipratropium [place] 0.5 mg Q8HR NEB 01/09/25 22:00 01/14/25 06:31 0.5 MG Furosemide 40 mg DAILY PO 01/10/25 10:00 Hold 01/11/25 09:58 40 MG Acetaminophen/ Hydrocodone Bitart 1 tab Q6HPRN PRN PO 01/09/25 21:45 01/13/25 08:55 1 TAB Hydromorphone HCl 0.5 mg Q4HPRN PRN IV 01/09/25 21:45 01/13/25 20:53 0.5 MG Pantoprazole Sodium 40 mg DAILY@0600 PO 01/10/25 06:00 01/14/25 05:22 40 MG Saccharomyces Boulardii 250 mg DAILY PO 01/11/25 10:00 01/13/25 08:54 250 MG Docusate Sodium 100 mg BID PO 01/12/25 10:00 01/13/25 20:49 100 MG Ranolazine 500 mg BID PO 01/13/25 10:00 01/13/25 20:52 500 MG Isosorbide Mononitrate 60 mg DAILY PO 01/13/25 10:00 Apixaban 5 mg BID PO 01/13/25 22:00 Sucralfate 1 gm BID@0600,2200 PO 01/13/25 22:00 01/14/25 05:22 1 GM laboratory and microbiology Laboratory Tests 01/14/25 05:41 Test 01/14/25 05:41 Range/Units Serum Glucose 80 74-106 mg/dL Assessment/Plan Patient is a 74-year-old female who presented to the hospital for few days of chest discomfort. She is known to our practice from before and outside. She was recently in the office and BRAD was offered to her for further evaluation of aortic valve. Does have a pacemaker which was interrogated just recently and was working good. Does have baseline history of coronary artery disease and status post bypass surgery. Is known to have abnormal nuclear stress test and the patient had previously decided to manage it medically. Since admission, serial troponin has been negative. It is of note that the patient was supposed to be on Plavix and Eliquis as outpatient. He ran out of Plavix around 5 days ago which could have contributed to the clinical picture. Lying comfortably flat in bed. No JVD. pink mucosa. Lungs reveal scattered rhonchi. Cardiac: Regular, no thrills/murmur. Abdomen is soft. No hepatomegaly. Bowel sounds positive. Lower extremities do not reveal edema. Dorsalis pedis is 2+ bilateral Past medical history includes diabetes mellitus, hyperlipidemia, hypertension, diastolic heart failure, peripheral artery disease, GERD, anxiety, anemia, asthma, coronary artery disease, status post CABG and PCI, status post pacemaker implantation ([employer]), status post old CVA, paroxysmal atrial flutter (on Eliquis), COPD on home oxygen, fibromyalgia, pulmonary hypertension, history of poor functional status, history of GI bleeding, pulmonary fibrosis, hiatal hernia, ex-smoker, status post gold cholecystectomy/hysterectomy. Is known to have closed grafts for CABG. Has had high risk PCI/left main in [facility] (few years back). Does have history of abnormal nuclear stress test and the plan has been to manage her medically. Has been kept on Eliquis and Plavix as outpatient. She is ex-smoker. Echocardiogram of January 09, 2023 revealed LVEF of 55 to 60%, mild concentric left ventricular hypertrophy, no wall motion abnormality, mild biatrial enlargement, pacing wire in right-sided chambers, mild to moderate aortic insufficiency, mild mitral regurgitation, mild to moderate tricuspid regurgitation and right ventricular systolic pressure of 35 mmHg Echocardiogram of March 07, 2023 had revealed ejection fraction of 55 to 60%, mild concentric left ventricular hypertrophy, mild AI/MR/PI, mild biatrial enlargement, pacemaker wire in the right-sided chambers and right ventricular systolic pressure of 34 mmHg Echocardiogram of September 06, 2023 revealed ejection fraction of 55% and pacemaker in right-sided chambers Echocardiogram of December 26, 2023 had reported ejection fraction of 55-60%, no wall motion abnormality, [id number] aortic insufficiency, mild MR, moderate TR and right ventricular systolic pressure 42 mm Hg Echocardiogram of August 30, 2024 reported ejection fraction of 55-60%, no wall motion abnormality, mild biatrial enlargement, pacemaker in the right-sided chambers, mild AI/MR and moderate tricuspid regurgitation. Right ventricular systolic pressure was assessed at 41 mm Hg. Echocardiogram of December 20, 2024 (performed in the office) revealed ejection fraction of 60-65%, mild concentric left ventricular hypertrophy, pseudo normal LV filling, mild biatrial enlargement, mild right ventricular enlargement with good systolic function, moderate aortic insufficiency, aortic sclerosis with no stenosis, mild mitral annular calcification, [id number] MR/TR and right ventricular systolic pressure of 53 mm Hg. Hemoglobin: 8.7 - 9.1 - 9.8 - 11.5 - 9.7 BNP: 354 Troponin (high sensitive): 4 - 4 - 4 Creatinine: 0.70 - 0.68 - 0.62 - 1.02 - 0.54 Potassium: 4.1 - 3.8 - 3.7 - 4.0 - 3.8 D-Dimer: 0.28 (WNL) TSH: 1.18 Chest x-ray revealed: IMPRESSION: 1. No acute intrathoracic process. 2. Stable diffuse bilateral interstitial prominence likely due to pulmonary fibrosis. Recommend comparison with chest CT from February 2024, which was not made available on the PACS system for comparison. 3. Cardiomegaly and postoperative changes of the heart. Repeat chest xry revealed: Frontal chest radiograph demonstrates no acute osseous or superficial soft tissue abnormalities. Left chest wall dual-chamber pacemaker. The trachea is midline. Cardiomegaly. Diffuse coarsened interstitial markings may reflect pulmonary edema and/or interstitial pneumonitis. Small left pleural effusion with compressive atelectasis. A superimposed infectious process is not excluded. No pneumothorax. CTA of the lungs revealed: IMPRESSION: 1. No evidence of pulmonary embolism. 2. Emphysema and fibrosis in the lungs. 3. Coronary artery calcifications and/or stent. Cardiomegaly. KUB reported: IMPRESSION: 1. Nonobstructive bowel gas pattern. 2. Large stool burden throughout the colon EKG revealed sinus rhythm with nonspecific ST-T changes Telemetry reveals sinus rhythm and occasions of paced rhythm. Echocardiogram reported: Left ventricle: Mild concentric left ventricular hypertrophy was seen. LVEF was 60-65%. There was no gross wall motion abnormality. Pseudo normal left ventricle diastolic function was observed. Right ventricle: Right ventricle was dilated with preserved systolic function. Both atria were dilated. Pacing wire was seen in right-sided chambers. Aortic valve: Aortic valve was not well visualized. Aortic sclerosis with no stenosis was seen. Mlyu-cz-[id number] aortic insufficiency was seen. Mitral valve revealed mild mitral regurgitation. Tricuspid valve: Tethered valve leaflets secondary to right ventricular dilatation was seen. Moderate tricuspid regurgitation was observed. Pulmonary valve was not well visualized. IVC was dilated. Right ventricular systolic function was assessed at 67 mm Hg. There was no pericardial effusion. Component of pulmonary hypertension is considered. Recognizing the pseudo normal left ventricular diastolic function, type 2 pulmonary hypertension is likely. Clinical correlation is advised. BRAD was performed: No significant valvular disease Right and Left heart Cath was performed: Diagnosis: Multivessel coronary artery disease; LVEF of around 50%; Apical aneurysm; Increased LVEDP (19 mm Hg); No pulmonary hypertension; Patent left main stent into LCX (dominant vessel) with no significant disease; Proximal LAD was SPIN INSTRUCTOR with minor parallel collaterals. LAD was a diffusely diseased vessel with areas of focal aneurysm; Presence of 2 ramus intermedius; One of the ramus intermedius is with mild disease; Second ramus: Relatively small vessel with mild disease. There was SVG 'also' nourishing it. SVG itself had ostial and middle SVG section disease (decision was made to manage it medically); DANIELLE was atretic but patent; There was 2 other SVG's which were SPIN INSTRUCTOR at ostium; Cardiac suggestion for management: Optimized medical therapy; Continuation of full anticoagulation for history of paroxysmal atrial flutter is suggested (patient on Eliquis); Antianginal therapy Patient is a 74-year-old female who presented with chest discomfort for few days. She actually had ran out of Plavix few days back which could have contributed to the clinical picture. Serial troponin has been negative. It is of note that the patient does have old history of nuclear stress test at she decided to managed medically. It is also of note that the patient was recently offered BRAD for questionable valvular disease. Chest discomfort Coronary artery disease, status post CABG/PCI Paroxysmal atrial flutter, history of (on Eliquis as outpatient) COPD/Emphysema Pulmonary fibrosis Pulmonary hypertension, history of Chronic diastolic heart failure Status post pacemaker Hypokalemia Paroxysmal atrial flutter with RVR Cardiac suggestions for management: Manage on telemetry Follow-up electrolytes and kidney function and correct abnormalities, keep potassium above 4 magnesium above 2 Optimized medical therapy Continuation of full anticoagulation for history of paroxysmal atrial flutter is suggested (patient on Eliquis) Antianginal therapy Continuation of Statin/Ranexa/Imdur (what patient takes as outpatient) is suggested Further evaluation and management depends on the above and clinical course A total of 55 minutes was spent reviewing the patient record, examining the patient, making a diagnostic and therapeutic plan, discussing this plan with medical personnel, following up on diagnostic studies and following the patient for clinical stability excluding any and all procedures. At least 50% of this time was spent in direct, [id number] contact. Thank you for allowing me to participate in this patient's care. Further recommendations will depend on patient's clinical course. Please do not hesitate to contact me if you have any questions or concerns. This medical document was created using electronic medical record system with [employer] dictation system. Although this document has been carefully reviewed, there may still be some phonetic and typographical errors. These areas are purely typographical due to the imperfection of the software programs, and do not reflect any compromise in the patient's medical care. Dietary Evaluation Review Comments: 1) Encourage optimal PO intake. Current PO intake meets increased protein needs 2) Follow-up with cardiology and pulmonology 3) Continue to monitor I&O, labs, and skin integrity Expected Outcomes/Goals: 1) appetite and labs to improve 2) f/u in 3-5 days Plan discussed with: Patient, Other (nurse) AJAY SMALLWOOD MD Jan 14, 2025 07:14
[2025-01-14] MEDS: POLYETHYLENE GLYCOL 17 GM PWDR PO ONE (10:30)
[2025-01-14] MEDS: ONDANSETRON HCL 4 MG/2 ML VIAL IV ONE (10:56)
[2025-01-14] MEDS ORDERED: APIX2.5T PO (11:47)
[2025-01-14] MEDS ORDERED: DOCU-265 PO (11:47)
[2025-01-14] MEDS ORDERED: CLOP75TA28 PO (11:47)
--- NOTE | 2025-01-14 11:47 | DVHDSRES ---
Discharge Summary Date of Admission Resident Creating Document: CHERRY HARRINGTON RESIDENT Jan 09, 2025 at 21:34 Date of Discharge: Jan 14, 2025 Labs/Diagnostic Data: Laboratory Results Test 01/14/25 05:41 01/14/25 03:30 01/13/25 05:45 01/12/25 05:04 White Blood Count 5.2 10^3/uL (4.4-10.8) Red Blood Count 3.22 10^6/uL (4.0-5.20) Hemoglobin 9.7 g/dL (12.2-16.2) Hematocrit 29.9 % (36.0-46.0) Mean Corpuscular Volume 93.1 fL (80.0-100.0) Mean Corpuscular Hemoglobin 30.2 pg (28.0-32.0) Mean Corpuscular Hemoglobin Concent 32.5 g/dL (32.0-36.0) Red Cell Distribution Width 18.0 % (11.8-14.3) Platelet Count 217 10^3/uL (140-450) Mean Platelet Volume 7.4 fL (6.9-10.8) Neutrophils (%) (Auto) 72.1 % (37.0-80.0) Lymphocytes (%) (Auto) 10.5 % (10.0-50.0) Monocytes (%) (Auto) 10.1 % (0.0-12.0) Eosinophils (%) (Auto) 6.4 % (0.0-7.0) Basophils (%) (Auto) 0.9 % (0.0-2.0) Neutrophils # (Auto) 3.8 10 ^3/uL (1.6-8.6) Lymphocytes # (Auto) 0.5 10 ^3/uL (0.4-5.4) Monocytes # (Auto) 0.5 10 ^3/uL (0-1.3) Eosinophils # (Auto) 0.3 10 ^3/uL (0-0.8) Basophils # (Auto) 0 10 ^3/uL (0-0.2) Nucleated Red Blood Cells 0.0 % Sodium Level 140 mmol/L (136-145) Potassium Level 3.8 mmol/L (3.5-5.1) Chloride Level 102 mmol/L (98-107) Carbon Dioxide Level 28 mmol/L (20-31) Anion Gap 10 (5-15) Blood Urea Nitrogen 8 mg/dL (9-23) Creatinine 0.54 mg/dL (0.550-1.02) Glomerular Filtration Rate Calc 96 mL/min (>90) BUN/Creatinine Ratio 14.8 (10.0-20.0) Serum Glucose 80 mg/dL (74-106) Calcium Level 9.1 mg/dL (8.7-10.4) Magnesium Level 1.9 mg/dL (1.6-2.6) Stool Occult Blood Neg x1 (Negative) Stool Occult Blood Sample #3 (Negative) Prothrombin Time 10.6 sec (9.3-11.8) Prothrombin Time INR 1.00 (0.9-1.15) Activated Partial Thromboplast Time 27.4 SEC (24.5-34.5) Beta HCG, Quantitative 4.1 mIU/mL (1.5-4.2) Test 01/11/25 18:07 01/11/25 05:35 01/10/25 15:54 01/10/25 15:21 D-Dimer, Quantitative 0.28 mg/L FEU (0.0-0.49) Iron Level 27 ug/dL (50-170) Total Iron Binding Capacity 304 ug/dL (250-425) Percent Iron Saturation 8.9 % (15-50) Total Bilirubin 0.3 mg/dL (0.2-1.0) Aspartate Amino Transferase (AST) 12 U/L (13-40) Alanine Aminotransferase (ALT) 10 U/L (7-40) Alkaline Phosphatase 90 U/L (46-116) Total Protein 5.9 g/dL (5.7-8.2) Albumin 4.1 g/dL (3.2-4.8) Triglycerides Level 139 mg/dL (< 150) Cholesterol Level 87 mg/dL (< 200) LDL Cholesterol 25 mg/dL (< 100) HDL Cholesterol 46 mg/dL (40-59) Reticulocyte Count (auto) 5.30 % (0.5-1.5) Haptoglobin 229 mg/dL (42-346) Ferritin 47.3 ng/mL (10-291) Direct Bilirubin 0.1 mg/dL (<0.3) Lactate Dehydrogenase 240 U/L (120-246) Vitamin D 25-Hydroxy 50.0 ng/mL (30.0-100) Thyroid Stimulating Hormone (TSH) 1.18 uIU/mL (0.55-4.78) Vitamin B12 Level 998 pg/mL (211-911) Test 01/10/25 02:28 01/09/25 16:45 01/09/25 14:48 01/09/25 13:52 Influenza Type A Antigen Negative (Negative) Influenza Type B Antigen Negative (Negative) SARS-CoV-2 Antigen (Rapid) Negative (NEGATIVE) Troponin I High Sensitivity 4 ng/L (</=34) Urine Color Yellow (Yellow) Urine Clarity Clear (Clear) Urine pH 6.5 (5.0-9.0) Urine Specific [place] 1.023 (1.001-1.035) Urine Protein Negative (Negative) Urine Ketones Negative (Negative) Urine Blood Negative /uL (Negative) Urine Nitrite Negative (Negative) Urine Bilirubin Negative (Negative) Urine Urobilinogen Normal mg/dL (Negative) Urine Leukocyte Esterase Negative /uL (Negative) Urine RBC 2 /hpf (0 - 4) Urine Microscopic WBC 2 /HPF (0-5) Urine Squamous Epithelial Cells Few /hpf (<5) Urine Bacteria None seen /hpf (None Seen) Urine Mucus Few (None Seen) Urine Osmolality 668 mOsm/kg Urine Sodium 178 mmol/L (40-220) Urine Glucose Normal mg/dL (Normal) B-Type Natriuretic Peptide 354.00 pg/mL (0-100) Other Laboratory Tests 01/14/25 05:41 Brief Hx & Hospital Course: Patient is a 74-year-old female with a past medical history as described below presented to the ED with a chief complaint of chest pain. Patient reports of chest pain starting on Monday described as a shock-like sensation in the lower chest, nonradiating and occurred while the patient was lying in bed, no exacerbating factors and relieved on taking nitroglycerin. Patient has extensive history of coronary artery disease with 3 CABG, multiple PCIs and is following with Dr. Nielsen. She reports of having chest pain on and off but for a while now she did not have any chest pain until Monday when it was severe enough for her to take nitroglycerin. She again had similar chest pain on Monday and then she informed her primary association executive office. Today she again complained of a similar chest pain and presented to the ER for further workup. Patient currently on 3 L home oxygen because of COPD and pulmonary fibrosis and in the hospital continues to be on 2-3 L oxygen and denies shortness of breath. Patient denies cough, expectoration, fever or chills in the last 1 week. Patient denied orthopnea, PND. Patient was not taking Plavix for the past 5 days. As she ran out. Past medical history: Coronary artery disease status post CABG x3, COPD, pulmonary fibrosis on home oxygen 3 L, GERD Past surgical history: CABG x3, PCI Social history: Patient quit smoking in 2003 and has 35 pack year smoking history, denies current smoking, alcohol, drug use Home medications: Eliquis 2.5 b.i.d., Plavix, atorvastatin, carvedilol (prescribed twice a day but takes only once because of soft blood pressure), Lasix 40 mg once daily, Trelegy Ellipta, sotalol 80 mg, ranolazine 500 mg b.i.d. During her hospitalization, patient required oxygen supplementation. ECG shows no acute ST segment or T-wave changes, sinus rhythm. Troponin WNL, BNP 354. CT angio completed, shows no PE. Emphysema and fibrosis of lungs. Cardiomegaly, coronary artery calcification seen. E chocardiogram 01/13/2025 shows mild LVH, EF 60%. Pseudo normal LV diastolic dysfunction. Patient was continued on Lasix 40 mg daily, sotalol and Coreg home medications. He held patient's Eliquis given history of black stool and low hemoglobin. stool occult came back negative. Eliquis was resumed. Iron panel suggesting iron-deficiency. Patient reported chest pain, cardiology consulted-continued Plavix and atorvastatin. Rusty was scheduled for 01/13 along with left and right heart catheterization. RUSTY, was negative for shunt or left appendage. Mild consulted LVH, LVEF 60%. Mild MR, moderate TR. Left and right heart catheterization completed 01/13, showed multivessel CAD.DANIELLE angiography revealed atretic DANIELLE which was patent to severely diffused diseased LAD. No stents were placed. 01/14-patient is hemodynamically stable, reports no acute distress, therefore she has been discharged home with the strong recommendation to follow up with association executive, primary care physician with the next 7 days. Continue Plavix and atorvastatin, Lasix daily. Continue Eliquis daily. Patient agreed to discharge planning. Side effects of the medication were discussed. Consults/Reason for consult Cardiology consulted for chest pain Operations or Procedures Operative Report Procedures performed: Right and left heart catheterization Bypass angiography Aortic root angiography Moderate sedation lasting more than 45 minutes Diagnosis: Multivessel coronary artery disease LVEF of around 50% Apical aneurysm Increased LVEDP (19 mm Hg) No pulmonary hypertension Patent left main stent into LCX (dominant vessel) with no significant disease Proximal LAD was [employer]IC with minor parallel collaterals. LAD was a diffusely diseased vessel with areas of focal aneurysm Presence of 2 ramus intermedius One of the ramus intermedius is with mild disease Second ramus: Relatively small vessel with mild disease. There was SVG 'also' nourishing it. SVG itself had ostial and middle SVG section disease (decision was made to manage it medically) DANIELLE was atretic but patent There was 2 other SVG's which were [employer]IC at ostium Cardiac suggestion for management: Optimized medical therapy Continuation of full anticoagulation for history of paroxysmal atrial flutter is suggested (patient on Eliquis) Antianginal therapy Findings: PCW: 9/16/11 mm Hg PA: 10/30/18 mm Hg RV: 29/-1/4 mm Hg RA: 3/5/3 mm Hg Cardiac output: 2.8 L/min Cardiac index: 1.61 L/min/M LV: 148/5/19 mm Hg LVEF: 50% with apical aneurysm There was no transaortic valve pressure gradient Left main: There was patent stent in left main into the LCX. LAD: LAD was a severely diffuse disease with [employer]LECT[employer]CH[employer]IC at its proximal section. There was minor parallel collaterals. Lad itself had areas with aneurysm There were 2 ramus intermedius available. One of the ramus intermedius had mild diffuse disease The other ramus intermedius was relatively small vessel with mild disease. This other ramus intermedius was also nourished via a patent SVG. This SVG itself had ostial and mid SVG section disease LCX: LCX was a large vessel and dominant (provided LPDA). There was patent stent in left main into the LCX. There was mild disease in stent and LCX RCA ostium could not be located (even with multiple aortic root shots) We could identify 2 SVG ostiums which were [employer] MECH[employer]IC at their take off. DANIELLE angiography revealed atretic DANIELLE which was patent to severely diffused diseased LAD. Presentation: Patient is a 74-year-old female who presented with atypical chest discomfort. She did have old history of abnormal nuclear stress test which she had decided to managed medically previously. There was some question about valvular disease and the patient had TTE/RUSTY. Patient was sent for right and left heart catheterization to rule out pulmonary hypertension and significant coronary artery disease. Procedure in detail: After obtaining informed consent, the patient was brought to the lab director. She was prepped and draped in sterile fashion. One mg of Versed and 25 mcg of fentanyl were used for moderate sedation (lasting more than 45 minutes). Under fluoroscopy guidance and using a micropuncture, the right femoral artery was accessed. After confirming a good access point, the micropuncture sheath was exchanged over a wire to a 6 Yemeni femoral sheath. Under fluoroscopy guidance and using a micropuncture, the left femoral vein was accessed. The micropuncture sheath was exchanged over a wire to a 6 Yemeni femoral sheath. At this point we proceeded to perform right heart catheterization (6 [place] catheter) via the left femoral vein/sheath. Pressures were obtained and cardiac output was calculated (thermodilution technique). We did not find pulmonary hypertension. At this point we decided to proceed with left heart catheterization. A 6 [place]i JL4 diagnostic catheter was used to perform left coronary angiography. A 6 Yemeni JR4 diagnostic catheter was used to attempt identifying the location of the RCA. The same catheter was used to identify SVG ostiums. We identified 2 closed SVG ostiums. We identified the 3rd SVG ostium which nourished the ramus intermedius. Using the same 6 [place]i JR4 diagnostic catheter we performed DANIELLE angiography (identified an atretic, but patent DANIELLE). We did recognize the disease in the SVG which was nourishing in the ramus intermedius. We recognized that the ramus itself was a small-vessel and also that it was patent from its ostium (with good competitive flow). Decision was made to manage it medically. A 6 Yemeni pigtail catheter was used to perform left heart catheterization (obtaining pressures and performing left ventriculography) and also multiple aortic root aortography. There was no dissection/hematoma/perforation. Patient tolerated the procedure with no complication. Total bleeding was less than 15 mL. Right femoral artery access site was managed by deploying an Angio-Seal device. Left femoral vein access was managed by manual pressure. Fluoroscopy time: 14.5 minutes contrast: 240 mL of Visipaque AJAY SMALLWOOD MD Jan 13, 2025 16:50 DICTATED BY:AJAY SMALLWOOD MD DICTATED DATE/TIME:01/13/251649 ELECTRONICALLY SIGNED BY:AJAY SMALLWOOD MD 01/13/251649 ELECTRONICALLY CO-SIGNED BY: Trans-Esophageal Echocardiogram PROCEDURE REPORT Date of Service: 01/13/2025 Scorer Helper: Ajay Smallwood MD PROCEDURE PERFORMED: Transesophageal echocardiogram, conscious sedation administration and supervision, more than 15 minutes. Intra cardiac bubble study. PREOPERATIVE DIAGNOSES: r/o Valvular heart disease. DESCRIPTION OF PROCEDURE: The patient signed informed consent understanding risks, benefits and alternatives of the procedure, she wished to proceed. The patient was given 15 mL of oral viscous lidocaine. She was placed in a left lateral decubitus position and conscious sedation was administered per lab director protocol (1 mg of Versed and 25 mcg of Fentanyl). I administered a bite block into her mouth and a RUSTY probe into the mid esophagus without any difficulties or complications. Multiple planar images were obtained. Bubble study was also performed. At the completion of procedure, RUSTY probe was removed and there were no immediate complications. Vitals signs were stable throughout the procedure. FINDINGS: 1. Left ventricle: Mild concentrated Left ventricular hypertrophy was seen. LVEF was 60%. There was no gross wall motion abnormality seen. 2. Right ventricle: RV was mildly dilated. Pacing wire was seen in it. 3. Left atrium: LA enlarged 4. Right atrium: RA was enlarged with pacing wire. 5. Mitral valve: Mild Mitral regurgitation, no significant stenosis, normal functioning valve. There was no vegetation 6. Left atrial appendage: No evidence of thrombus. 7. Aortic valve: Trileaflet valve. No stenosis. Mild to moderate Aortic Insufficiency was seen. There was no vegetation 8. Pulmonic valve: Trivial pulmonic insufficiency. No significant stenosis. 9. Tricuspid valve: Moderate tricuspid regurgitation. There was no vegetation 10. Interatrial septum: Negative color flow for right to left shunt was observed. Bubble study was performed: negative for shunt 11. Pericardium: No significant effusion. 12. Thoracic aorta: No significant plaquing. AJAY SMALLWOOD MD Jan 13, 2025 14:20 DICTATED BY:AJAY SMALLWOOD MD DICTATED DATE/TIME:01/13/25 1420 ELECTRONICALLY SIGNED BY:AJAY SMALLWOOD MD 01/13/25 1420 ELECTRONICALLY CO-SIGNED BY: Condition at Discharge: Stable Final Diagnosis/Problems List Acute on chronic hypoxic respiratory failure likely d/t Multivessel CAD Acute chest pain, s/p LHC And RHC likely Multivessel CAD ? 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 Patient was counseled about treatment plan, medications, possible side effects, patientverbalized understanding. All questions were answered to the best of my ability. This discharge took greater then 30 minutes in planning, reviewing documentation, counseling the patient, and discussing with other team members." ASSESSMENT ASSESSMENT Assessment Acute on chronic hypoxic respiratory failure likely d/t Multivessel CAD Acute chest pain, likely Multivessel CAD ? Paroxysmal atrial flutter, on Eliquis Anemia, likely iron-deficiency Date of Service: Jan 14, 2025 Billing Provider: POLINA WARE MD Common Visit Codes: 62612-QBB/OBS DISCH DAY >30min CHERRY HARRINGTON RESIDENT Jan 14, 2025 11:47 POLINA WARE MD Jan 14, 2025 21:27
== END 2025-01-14 18:00 | disposition home or self-care (01) | DRG 286 ==
LOC: EDBD 13:30 → EDUNIT# 13:30 → ER 13:30 → OVERFLOW 21:34 → TELE-CENTR 21:48
PROVIDERS: ADMIT Internal Medicine Geriatric Medicine; ATTEND Emergency Medicine
PROC: B24BZZ4 Ultrasonography of Heart with Aorta, Transesophageal (ICD-10-PCS; principal; 2025-01-13)
PROC: 4A023N8 Measurement of Cardiac Sampling and Pressure, Bilateral, Percutaneous Approach (ICD-10-PCS; 2025-01-13)
PROC: B211YZZ Fluoroscopy of Multiple Coronary Arteries using Other Contrast (ICD-10-PCS; 2025-01-13)
PROC: B21FYZZ Fluoroscopy of Other Bypass Graft using Other Contrast (ICD-10-PCS; 2025-01-13)
PROC: B215YZZ Fluoroscopy of Left Heart using Other Contrast (ICD-10-PCS; 2025-01-13)
PROC: B218YZZ Fluoroscopy of Left Internal Mammary Bypass Graft using Other Contrast (ICD-10-PCS; 2025-01-13)
PROC: B310YZZ Fluoroscopy of Thoracic Aorta using Other Contrast (ICD-10-PCS; 2025-01-13)
DX: I25.10 Atherosclerotic heart disease of native coronary artery without angina pectoris (principal); J96.21 Acute and chronic respiratory failure with hypoxia; J44.1 Chronic obstructive pulmonary disease with (acute) exacerbation; I50.32 Chronic diastolic (congestive) heart failure; I48.92 Unspecified atrial flutter; D50.0 Iron deficiency anemia secondary to blood loss (chronic); J84.10 Pulmonary fibrosis, unspecified; E87.6 Hypokalemia; J43.9 Emphysema, unspecified; I11.0 Hypertensive heart disease with heart failure; D64.9 Anemia, unspecified; Z20.822 Contact with and (suspected) exposure to COVID-19; I70.0 Atherosclerosis of aorta; I08.2 Rheumatic disorders of both aortic and tricuspid valves; E11.51 Type 2 diabetes mellitus with diabetic peripheral angiopathy without gangrene; E78.5 Hyperlipidemia, unspecified; I27.20 Pulmonary hypertension, unspecified; F41.9 Anxiety disorder, unspecified; K21.9 Gastro-esophageal reflux disease without esophagitis; Z88.6 Allergy status to analgesic agent; Z99.81 Dependence on supplemental oxygen; Z88.1 Allergy status to other antibiotic agents; Z88.0 Allergy status to penicillin; Z88.8 Allergy status to other drugs, medicaments and biological substances; Z79.899 Other long term (current) drug therapy; Z79.01 Long term (current) use of anticoagulants; Z79.82 Long term (current) use of aspirin; Z90.710 Acquired absence of both cervix and uterus; Z95.1 Presence of aortocoronary bypass graft; Z87.891 Personal history of nicotine dependence; Z90.49 Acquired absence of other specified parts of digestive tract; Z86.73 Personal history of transient ischemic attack (TIA), and cerebral infarction without residual deficits; Z79.02 Long term (current) use of antithrombotics/antiplatelets; Z95.0 Presence of cardiac pacemaker; Z80.1 Family history of malignant neoplasm of trachea, bronchus and lung; Z98.61 Coronary angioplasty status
CPT/HCPCS: 36415; 71045; 71275; 74018; 80048; 80053; 80061; 80076; 81001; 82270; 82306; 82607; 82728; 83010; 83540; 83550; 83615; 83735; 83880; 83935; 84300; 84443; 84484; 84702; 85025; 85045; 85379; 85610; 85730; 86850; 86900; 86901; 87426; 87804; 93005; 93306; 93312; 93451; 94640; 96374; 96375; 99152; 99153; 99291; C1894; G0378; J2250; J2405; Q9967

== ENCOUNTER 2025-01-26 10:42 | Inpatient (IN) | payer MEDICARE, MEDICAID ==
[~2025-01-26] VITALS: Ht 160 cm; Wt 69.2 kg
[~2025-01-26 10:42] MED LIST changes: -ALBU108A5 INH; -ASPI1TAB20 PO; -CEFD300C2 PO; -CHOL20007 PO; +DOCU-265 PO
--- NOTE | 2025-01-26 10:58 | ECG ---
[facility] Test Date: 2025-01-26 Test Time: 10:48:56 Pat Name: EUN PAIZ Department: ED Room: 0281T Gender: F Managed Care Manager: : [id number] Requested By: DAMIAN BA Order Number: [id number] Reading MD: Bobby Ramey Measurements Intervals [place] Rate: 71 P: 0 CT: 169 QRS: 6 QRSD: 149 T: 96 QT: 449 QTc: 488 Interpretive Statements Atrial-paced complexes IVCD, consider atypical RBBB Electronically Signed On 01-28-2025 22:46:09 PDT by Bobby Ramey Please click the below link to view image of tracing.
--- NOTE | 2025-01-26 11:10 | ED.PDOC ---
HPI Comments 74 year old female presents to the ED via EMS with a chief complaint of chest pain onset today (01/26/25) about 1 hour ago. Per EMS, patient began experiencing LT sided chest pain about 1 hour ago, rates pain 10/10, took Nitro 0.8 mg prior to ED arrival. Patient states she began experiencing productive cough with white phlegm, nasal congestion last night, woke up today experiencing chest pain as well as shortness of breath. PMHx of anemia, asthma, CHF, COPD, CVA, DM, GERD, HLD, HTN, HI. Denies dizziness, headache, blurry vision, numbness/tingling, nausea, vomiting, diarrhea, fevers, chills. No other symptoms or modifying factors present at this time. Chief Complaint: Chest Pain Time Seen by MD: 10:55 Primary Care Provider: DR. WHIPPLE Reviewed Notes: Medications, Allergies Allergies: Coded Allergies: Nitrofurantoin (Verified Allergy, Severe, 04/05/22) Amoxicillin (Verified Allergy, Mild, 09/07/23) 09/07/23: SALES AND MERCHANDISING REPRESENTATIVEJOHANNA, SPOKE WITH PATIENT. SHE POSSIBLY RECALLS TAKING AMOXICILLIN BEFORE, DENIES ANY RASHES, ITCHINESS, S/SX OF ANAPHYLAXIS. Ciprofloxacin (Verified Allergy, Mild, 09/07/23) 09/07/23: SALES AND MERCHANDISING REPRESENTATIVEJOHANNA, SPOKE WITH PATIENT. SHE MENTIONED LAST TIME SHE RECIEVED CIPRO INJECTION WAS A WHILE AGO. PATIENT ENDORSED SMALL BUMPS ON THE SKIN BUT PER PATIENT COULD HAVE BEEN DUE TO FAST INJECTION. HAS TAKEN LEVAQUIN PO BEFORE AND DENIES ANY RASH, ITCHINESS, S/SX OF ANAPHYLAXIS. Doxycycline (Verified Allergy, Unknown, "I get really sick", 09/01/24) Patient verbalizes that she "get really sick" in when receiving doxycycline in the past. When asked about specific symptoms in the past, she verbalizes not remembering. Home Meds Active Scripts Docusate Sodium (Docusate Sodium) 100 Mg Cap, 100 MG PO BIDPRN PRN for 30 Days, #60 CAP 0 Refills Prov:CHERRY HARRINGTON RESIDENT 01/14/25 Clopidogrel Bisulfate (Plavix) 75 Mg Tab, 75 MG PO DAILY for 30 Days, #30 TAB 0 Refills Prov:CHERRY HARRINGTON RESIDENT 01/14/25 Apixaban Base (ELIQUIS) 2.5 Mg Tab, 2.5 MG PO BID for 30 Days, #60 TAB 0 Refills Prov:CHERRY HARRINGTON RESIDENT 01/14/25 Ondansetron Odt 4MG Tab (ZOFRAN PO) 4 Mg Tb, 4 MG PO Q8HR PRN, #14 TAB ODT TAB-DISSOLVE IN MOUTH, THEN SWALLOW Prov:VITO SCHUSTER MD 07/08/23 Reported Medications Ferrous Sulfate (Ferosul) 325 Mg Tab, 1 TAB PO BID for 30 Days, #60 06/12/24 Dicyclomine Hcl (BENTYL CAPSULE) 10 Mg Cp, 1 CAP PO QID PRN for 5 Days, #20 06/12/24 Isosorbide Mononitrate (Isosorbide Mononitrate Er) 60 Mg Tab, 1 TAB PO DAILY for 90 Days, #90 06/12/24 Fgkqivrwdjl-Gbnowsocoyhl-Morhd (Trelegy Ellipta 200-62.5-25 Mcg/INH) 1 Aer Aer, 1 PUFF IN DAILY for 30 Days, #60 06/12/24 Carvedilol (Carvedilol) 25 Mg Tab, 1 TAB PO TID for 30 Days, #90 02/22/24 Tramadol Hcl (Tramadol Hcl) 50 Mg Tab, 50 MG PO BID PRN for PAIN SCALE 1 THRU 6, MG 10/11/23 Gojishxvcsx-Exzsrkffbdy-Xwm C- (Glucosamine Chondroitin) Tab, 1500 MG PO BID, TAB 10/11/23 Zinc Sulfate (Zinc Sulfate) 220 Mg Cap, 50 MG PO DAILY for 30 Days, MG 10/11/23 Ascorbic Acid (VITAMIN C TABLET) 500 Mg Tb, 2000 MG PO DAILY, #30 TAB 3 Refills 10/11/23 Nitroglycerin (Nitroglycerin Lingual) 0.4 Mg/[place] Spr, 0.4 MG TL BID PRN for FOR CHEST PAIN, SPR 10/11/23 Magnesium Oxide (MAGNESIUM OXIDE) 400 Mg Tab, 1 TAB PO DAILY for 30 Days, #30 10/11/23 Evolocumab (Repatha) 140 Mg/Ml Inj, 1 ML SC Q2WEEK for 56 Days, #14 INJECT 1 ML SUBCUTANEOUSLY EVERY 2 WEEKS. 09/07/23 Potassium Chloride (K-Tabs) 10 Meq Tab, 1 TAB.CHEW PO DAILY 07/01/22 Pantoprazole Sodium Sesquihydr (Pantoprazole Sodium) 40 Mg Tab, 1 TAB PO DAILY for 30 Days, #30 07/01/22 Ranolazine (Ranolazine ER) 500 Mg Tab, 1 TAB PO BID for 30 Days, #60 07/01/22 Furosemide (Furosemide) 40 Mg Tab, 1 TAB PO DAILY for 90 Days, #90 07/01/22 Atorvastatin Calcium (ATORVASTATIN CALCIUM) 40 Mg Tab, 1 TAB PO HS for 30 Days, #30 07/01/22 Montelukast Sodium (MONTELUKAST SODIUM) 10 Mg Tab, 1 TAB PO DAILY for 30 Days, #30 07/01/22 Ticagrelor Base (BRILINTA) 90 Mg Tab, 1 TAB PO BID for 30 Days, #60 07/01/22 Information Source: Patient, Emergency Med Personnel Mode of Arrival: EMS Severity: Moderate Timing: Hours Duration: Since onset Prehospital treatment: None Location: Chest (L) Radiation: No Radiation Quality: Sharp Onset: At Rest Cardiac Risk Factors: Hyperlipidemia, HTN, Diabetes PE Risk Factors: None History of: None Modifying Factors: Nothing Associated Signs and Symptoms: SOB Past Medical History PAST MEDICAL HISTORY: Anemia, Asthma, CHF, COPD, CVA, DM, GERD, High Lipids, HTN, HI Surgical History: CABG, Cholecystectomy, Hysterectomy, Pacemaker, PTCA, Tonsillectomy PSYCHOLOGY INSTRUCTOR History: No Pertinent PSYCHOLOGY INSTRUCTOR History, Ovarian Cysts Family History Family History: Reviewed,noncontributory to illness, Family hx of DM, Family hx of Cancer, Family hx of heart fran Social History Smoker: Quit Greater Than 1 Year Alcohol: Denies ETOH Use Drugs: Denies Drug Use Lives In: Home Constitutional: denies: chills, diaphoresis, fatigue, fever, malaise, sweats, weakness, others EENTM: reports: nose congestion; denies: blurred vision, double vision, ear bleeding, ear discharge, ear drainage, ear pain, ear ringing, eye pain, eye redness, hearing loss, mouth pain, mouth swelling, nasal discharge, nose bleeding, nose pain, photophobia, tearing, throat pain, throat swelling, voice changes, others Respiratory: reports: cough, shortness of breath; denies: hemoptysis, orthopnea, SOB at rest, SOB with excertion, stridor, wheezing, others Cardiovascular: reports: chest pain; denies: dizzy spells, diaphoresis, Dyspnea on exertion, edema, irregular heart beat, left arm pain, lightheadedness, palpitations, PND, syncope, others Gastrointestinal: denies: abdomen distended, abdominal pain, blood streaked bowels, constipated, diarrhea, dysphagia, difficulty swallowing, hematemesis, melena, nausea, poor appetite, poor fluid intake, rectal bleeding, rectal pain, vomiting, others Genitourinary: denies: abnormal vagina bleeding, burning, dyspareunia, dysuria, flank pain, frequency, hematuria, incontinence, pain, , vagina discharge, urgency, others Neurological: denies: dizziness, fainting, headache, left sided numbness, left sided weakness, numbness, paresthesia, pre-existing deficit, right sided numbness, right sided weakness, seizure, speech problems, tingling, tremors, weakness, others Musculoskeletal: denies: back pain, gout, joint pain, joint swelling, muscle pain, muscle stiffness, neck pain, others Integumetry: denies: bruises, change in color, change in hair/nails, dryness, laceration, lesions, lumps, rash, wounds, others Allergic/Immunocompromised: denies: Difficulty Healing, Frequent Infections, Hives, Itching, others Hematologic/Lymphatic: denies: anemia, blood clots, easy bleeding, easy bruising, swollen glands, others Endocrine: denies: excessive hunger, excessive sweating, excessive thirst, excessive urination, flushing, intolerance to cold, intolerance to heat, unexplained weight gain, unexplained weight loss, others Psychiatric: denies: anxiety, bipolar disorder, depression, hopeless, panic disorder, schizophrenia, sleepless, suicidal, others All Other Systems: Reviewed and Negative Physical Exam General Appearance: Normal HEENT: Normal ENT Inspection, Pharynx Normal, TMs Normal Neck: Full Range of Motion, Non-Tender, Normal, Normal Inspection Respiratory: Chest Non-Tender, Lungs Clear, No Accessory Muscle Use, No Respiratory Distress, Normal Breath Sounds Cardiovascular: No Edema, No JVD, No Murmur, No Gallop, Other (tenderness to palpation to LT lateral chest ) Breast Exam: Deferred Gastrointestinal: No Organomegaly, Non Tender, No Pulsatile Mass, Normal Bowel Sounds, Soft Genitalia: Deferred Pelvic: Deferred Rectal: Deferred Extremities: No calf tenderness, Normal capillary refill, Normal inspection, Normal range of motion, Non-tender, No pedal edema Musculoskeletal : Apperance: Normal Neurologic: Alert, 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 Was a procedure done?: No CP Differential Dx Differential Diagnosis: Angina, Anxiety / Panic Attack Differential Diagnosis: Angina, Aortic dissection, Chest Wall Pain, Bertha lithiasis, Costochondritis, Esophageal reflux/spasm, Gastritis, Myocardial Infarction, Pericarditis, Pneumonia, Pneumothorax, Pulmonary Embolus X-Ray, Labs, Meds, VS Vital Signs Date Time Temp Pulse Resp B/P (MAP) Pulse Ox O2 Delivery O2 Flow Rate FiO2 01/26/25 11:55 70 01/26/25 10:50 98.3 86 16 137/61 (86) 96 98.3 01/26/25 10:48 71 Lab Test 01/26/25 12:16 01/26/25 11:16 Range/Units Troponin I High Sensitivity 3 L 4 </=34 ng/L White Blood Count 7.9 4.4-10.8 10^3/uL Red Blood Count 2.73 L 4.0-5.20 10^6/uL Hemoglobin 8.4 L 12.2-16.2 g/dL Hematocrit 25.0 L 36.0-46.0 % Mean Corpuscular Volume 91.4 80.0-100.0 fL Mean Corpuscular Hemoglobin 30.7 28.0-32.0 pg Mean Corpuscular Hemoglobin Concent 33.5 32.0-36.0 g/dL Red Cell Distribution Width 18.1 H 11.8-14.3 % Platelet Count 226 140-450 10^3/uL Mean Platelet Volume 7.2 6.9-10.8 fL Neutrophils (%) (Auto) 81.4 H 37.0-80.0 % Lymphocytes (%) (Auto) 7.3 L 10.0-50.0 % Monocytes (%) (Auto) 7.9 0.0-12.0 % Eosinophils (%) (Auto) 2.6 0.0-7.0 % Basophils (%) (Auto) 0.8 0.0-2.0 % Neutrophils # (Auto) 6.4 1.6-8.6 10 ^3/uL Lymphocytes # (Auto) 0.6 0.4-5.4 10 ^3/uL Monocytes # (Auto) 0.6 0-1.3 10 ^3/uL Eosinophils # (Auto) 0.2 0-0.8 10 ^3/uL Basophils # (Auto) 0.1 0-0.2 10 ^3/uL Nucleated Red Blood Cells 0.0 % Sodium Level 143 136-145 mmol/L Potassium Level 3.8 3.5-5.1 mmol/L Chloride Level 107 98-107 mmol/L Carbon Dioxide Level 25 20-31 mmol/L Anion Gap 11 5-15 Blood Urea Nitrogen 16 9-23 mg/dL Creatinine 0.64 0.550-1.02 mg/dL Glomerular Filtration Rate Calc 92 >90 mL/min BUN/Creatinine Ratio 25.0 H 10.0-20.0 Serum Glucose 117 H 74-106 mg/dL Calcium Level 9.0 8.7-10.4 mg/dL [place] [address] Ph: [phone] DIAGNOSTIC IMAGING Diagnostic Imaging Report : [id number] Signed PATIENT: EUN PAIZ ACCT: [id number] UNIT: [id number] : 1950 LOC: ER ROOM / BED: / AGE / SEX: 74 / F ADM STATUS: REG ER SERVICE 1056 ORDERING PHYSICIAN: DAMIAN BA MD PROCEDURE(s): CXRP - CHEST PORTABLE REASON: cp ORDER NUMBER(s): [id number], ACCESSION NUMBER(s): [id number] EXAM: XY CHEST PORTABLE CLINICAL HISTORY: cp TECHNIQUE: Single AP view of the chest WID: COMPARISON: XY CHEST PORTABLE on DOS: 01/11/25, FINDINGS: Lines and tubes: There is a left-sided triple lead pacemaker in place. Prior median sternotomy and CABG. Chest: Mild cardiomegaly. Calcified plaque projects over the aortic arch. Diffuse interstitial prominence of the lungs and reticular opacities. Improvement in left lung base opacities since prior. No definite pleural effusions. No pneumothorax. The osseous structures are grossly intact. IMPRESSION: 1. Improvement in left lung base consolidation since prior. This could be improvement in atelectasis or pneumonia. 2. Mild cardiomegaly. Prior median sternotomy and CABG. 3. Diffuse reticular and interstitial opacities of the lungs likely related to known fibrosis. ATED BY: LARON HAIRSTON MD DICTATED DATE/TIME: 01/26/25 1150 SIGNED BY: LARON HAIRSTON MD SIGNED DATE/TIME: 01/26/25 1150 CC: Time of 1ST Reevaluation: 11:25 Reevaluation 1ST: Unchanged Patient Education/Counseling: Diagnosis, Treatment, Prognosis, Need For Follow Up Family Education/Counseling: No Family Present Comments pt has known CAD. although she had atypical features such as chest wall pain and coughing, the pneumonia on cxr is actually improved, and her cp is resolved after taking nitro. she will be admitted for further workup of unstable angina Additional Information The following tests were ordered, and results were reviewed by me: EKG -X3, TROP-x3, BMP, CBC, XY CHEST Additional Information was gathered from interviewing the following independent historians: EMS I reviewed and agreed with the following test results read by other providers: , XY CHEST I discussed treatment and results with medical personnel and: patient Comprehensive systems review obtained and negative except for what is stated in the HPI. SEPSIS Sepsis Screen Date sepsis recognized/suspect: Jan 26, 2025 Time Sepsis recognized/suspect: 1048 Recent Procedure: No On Antibiotic Therapy: No Respiratory Rate >20: No Heart Rate >90: No Temp<36 C (96.8 F) or >38.3 C: No SBP <90 or MAP <65 mmHG: No New Acute Mental Status Change: No Is the patient on CPAP, BIPAP,: No Physician Orders Chest Portable (01/26/25 10:56) Troponin-I Hs (01/26/25 13:56) Electrocardigram (01/26/25 13:56) Vital Signs Date Time Temp Pulse Resp B/P (MAP) Pulse Ox O2 Delivery O2 Flow Rate FiO2 01/26/25 11:55 70 01/26/25 10:50 98.3 86 16 137/61 (86) 96 98.3 01/26/25 10:48 71 Laboratory Tests Test 01/26/25 11:16 White Blood Count 7.9 10^3/uL (4.4-10.8) Departure 1 Departure Time of Disposition: 13:16 Impression: Primary Impression: Unstable angina Disposition: 09 ADMITTED INPATIENT Admit to: Tele Condition: Stable Discharged With: Self Critical Care Note Critical Care Time?: Yes (45 min-critical care time only) Critical care comment: Due to concerns for patients condition deteriorating, the care required my highest level of attention and readiness to intervene. I assessed the patient, reviewed the medical records, ordered the appropriate tests and treatments, then reassessed for results and responsiveness. I communicated with medical personnel and consultants and formulated a plan of care. Total critical care time excludes any procedures Stability Stability form required: No Heart Score Heart Score: Heart Score Response (Comments) Value History Moderate Suspicious 1 EKG Repolarization Disturb 1 Age >65 2 Risk Factors >3 or Hx ASHD 2 Troponin Normal limit 0 Total 6 I personally scribed for DAMIAN BA MD ([email or web address]) on 01/26/25 at 11:10. Electronically submitted by Kinga Marcum ([email or web address]). I personally scribed for DAMIAN BA MD ([email or web address]) on 01/26/25 at 11:27. Electronically submitted by Kinga Marcum ([email or web address]). I personally scribed for DAMIAN BA MD ([email or web address]) on 01/26/25 at 12:21. Electronically submitted by Kinga Marcum ([email or web address]). DAMIAN BA MD Jan 26, 2025 11:10
[2025-01-26 11:24] LABS: Hemoglobin 8.4 g/dL (12.2-16.2); Nucleated Red Blood Cells % 0.0 %
[2025-01-26 11:26] LABS: Hematocrit 25.0 % (36.0-46.0); Mean Corpuscular Hemoglobin 30.7 pg (28.0-32.0); Mean Corpuscular Volume 91.4 fL (80.0-100.0)
[2025-01-26 11:35] LABS: Chloride 107 mmol/L (98-107); Potassium 3.8 mmol/L (3.5-5.1); Sodium 143 mmol/L (136-145)
[2025-01-26 11:36] LABS: Anion Gap 11 (5-15); Calcium 9.0 mg/dL (8.7-10.4); Carbon Dioxide 25 mmol/L (20-31)
[2025-01-26 11:41] LABS: BUN/Creatinine Ratio 25.0 (10.0-20.0); Blood Urea Nitrogen 16 mg/dL (9-23)
[2025-01-26 11:44] LABS: Glucose 117 mg/dL (74-106)
--- NOTE | 2025-01-26 11:52 | DVH ---
EXAM: XY CHEST PORTABLE CLINICAL HISTORY: cp TECHNIQUE: Single AP view of the chest WID: COMPARISON: XY CHEST PORTABLE on DOS: 01/11/25, FINDINGS: Lines and tubes: There is a left-sided triple lead pacemaker in place. Prior median sternotomy and CA BG. Chest: Mild cardiomegaly. Calcified plaque projects over the aortic arch. Diffuse interstitial prominence of the lungs and reticular opacities. Improvement in left lung base opacities since prior. No definite pleural effusions. No pneumothorax. The osseous structures are grossly intact. IMPRESSION: 1. Improvement in left lung base consolidation since prior. This could be improvement in atelectasis or pneumonia. 2. Mild cardiomegaly. Prior median sternotomy and CABG. 3. Diffuse reticular and interstitial opacities of the lungs likely related to known fibrosis.
--- NOTE | 2025-01-26 11:57 | ECG ---
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
[2025-01-26] MEDS: HYDROcodone-ACET 5/325MG TAB PO ONE (13:19)
[2025-01-26] MEDS: fentaNYL CITRATE 100 MCG/2 ML VL IV ONE (13:30)
[2025-01-26] MEDS ORDERED: ACETAMINOPHEN 325 MG TAB PO PRN (15:30)
--- NOTE | 2025-01-26 15:53 | DVHHP2 ---
History of Present Illness History of Present Illness 61 year old female presents to the ED via EMS with a chief compliant of abdominal pain onset 2 days. Patient states she began experiencing abdominal pain, epigastric region, 2 days ago, noticed pain worsen today. Patient is currently experiencing nausea, vomiting, constipation. Per EMS, patient was given Zofran PO in route to ED. She has been seen at [facility] multiple times for similar symptoms, last admission January 2024, patient was recommended to stop marijuana use, patient admits she continues smoking marijuana. PMHx Asthma/COPD, CVA, dyslipidemia, hypertension, mi, CHF, diabetes mellitus, CAD SP CABG X 3, pulmonary fibrosis 3 L home O2, GERD. Denies chest pain, shortness of breath, dizziness, blurry vision, dysuria, hematuria, fevers. No other symptoms or modifying factors present at this time. Review of Systems Allergies: Coded Allergies: Nitrofurantoin (Verified Allergy, Severe, 04/05/22) Amoxicillin (Verified Allergy, Mild, 09/07/23) 09/07/23: STAKER SURVEYINGJOHANNA, SPOKE WITH PATIENT. SHE POSSIBLY RECALLS TAKING AMOXICILLIN BEFORE, DENIES ANY RASHES, ITCHINESS, S/SX OF ANAPHYLAXIS. Ciprofloxacin (Verified Allergy, Mild, 09/07/23) 09/07/23: STAKER SURVEYINGJOHANNA, SPOKE WITH PATIENT. SHE MENTIONED LAST TIME SHE RECIEVED CIPRO INJECTION WAS A WHILE AGO. PATIENT ENDORSED SMALL BUMPS ON THE SKIN BUT PER PATIENT COULD HAVE BEEN DUE TO FAST INJECTION. HAS TAKEN LEVAQUIN PO BEFORE AND DENIES ANY RASH, ITCHINESS, S/SX OF ANAPHYLAXIS. Doxycycline (Verified Allergy, Unknown, "I get really sick", 09/01/24) Patient verbalizes that she "get really sick" in when receiving doxycycline in the past. When asked about specific symptoms in the past, she verbalizes not remembering. Exam Vital Signs Vital Signs Date Time Temp Pulse Resp B/P (MAP) Pulse Ox O2 Delivery O2 Flow Rate FiO2 01/26/25 15:10 98.4 72 17 108/50 (69) 96 98.4 01/26/25 13:44 Room Air* 0 21 Exam GEN: Healthy appearing, well-developed, NAD. HEENT: NC/AT; MMM. CV: RRR, no m/r/g. LUNGS: CTAB, no w/r/c. ABD: Soft, NT/ND, NBS, no masses or organomegaly. EXT: skin Warm, well perfused. no rashes. No clubbing, cyanosis, or edema. Trace pedal edema. NEURO: Ambulating with no limitations. No focal deficits. Labs/Xrays Labs Test 01/26/25 12:16 01/26/25 11:16 Range/Units Troponin I High Sensitivity 3 L </=34 ng/L White Blood Count 7.9 4.4-10.8 10^3/uL Red Blood Count 2.73 L 4.0-5.20 10^6/uL Hemoglobin 8.4 L 12.2-16.2 g/dL Hematocrit 25.0 L 36.0-46.0 % Mean Corpuscular Volume 91.4 80.0-100.0 fL Mean Corpuscular Hemoglobin 30.7 28.0-32.0 pg Mean Corpuscular Hemoglobin Concent 33.5 32.0-36.0 g/dL Red Cell Distribution Width 18.1 H 11.8-14.3 % Platelet Count 226 140-450 10^3/uL Mean Platelet Volume 7.2 6.9-10.8 fL Neutrophils (%) (Auto) 81.4 H 37.0-80.0 % Lymphocytes (%) (Auto) 7.3 L 10.0-50.0 % Monocytes (%) (Auto) 7.9 0.0-12.0 % Eosinophils (%) (Auto) 2.6 0.0-7.0 % Basophils (%) (Auto) 0.8 0.0-2.0 % Neutrophils # (Auto) 6.4 1.6-8.6 10 ^3/uL Lymphocytes # (Auto) 0.6 0.4-5.4 10 ^3/uL Monocytes # (Auto) 0.6 0-1.3 10 ^3/uL Eosinophils # (Auto) 0.2 0-0.8 10 ^3/uL Basophils # (Auto) 0.1 0-0.2 10 ^3/uL Nucleated Red Blood Cells 0.0 % Sodium Level 143 136-145 mmol/L Potassium Level 3.8 3.5-5.1 mmol/L Chloride Level 107 98-107 mmol/L Carbon Dioxide Level 25 20-31 mmol/L Anion Gap 11 5-15 Blood Urea Nitrogen 16 9-23 mg/dL Creatinine 0.64 0.550-1.02 mg/dL Glomerular Filtration Rate Calc 92 >90 mL/min BUN/Creatinine Ratio 25.0 H 10.0-20.0 Serum Glucose 117 H 74-106 mg/dL Calcium Level 9.0 8.7-10.4 mg/dL Assessment/Plan Assessment/Plan Chest pain, rule out ACS Asthma/COPD, CVA, dyslipidemia, hypertension, mi, CHF, diabetes mellitus, CAD SP CABG X 3, pulmonary fibrosis 3 L home O2, GERD - also Cardiology Dr. Martinez - Continuing home meds ( Eliquis, Plavix, Lasix, Imdur, Protonix, ranolazine,, Lipitor, Coreg) - plavix, lipitor continue. no loading dose. r/o ACS with business systems manager consult. - tele monitor - chest pain protocol Cardiac diabetic diet GI prophylaxis-continue home dose p.o. Protonix DVT prophylaxis- home Eliquis Tele Full code Plan discussed with: Patient Date of Service: Jan 26, 2025 Billing Provider: TAWANA ROGEL MD Common Visit Codes: 23870-HALRBHA INP/OBS CARE (HIGH) Secondary Visit Codes: 62208-[id number] CARE PLAN 30 MINUTES TAWANA ROGEL MD Jan 26, 2025 15:53
[2025-01-26 16:20] VITALS: BP 108/50; PULSE 71; RESP 14; TEMP 98.4; O2SAT 98
[2025-01-26] MEDS: MORPHINE SULFATE INJ 2 MG/ml SYRG IV PRN (17:25)
[2025-01-26] MEDS: ONDANSETRON HCL 4 MG/2 ML VIAL IV PRN (17:28)
[2025-01-26] MEDS: MORPHINE SULFATE 4 MG/ML SYR/VIAL ONE (17:29)
[2025-01-26] MEDS: ALBUTEROL SULF 2.5 MG/0.5ML(0.5%) NEB SOLN NEB SCH (18:24)
[2025-01-26] MEDS: IPRATROPIUM BROM 0.5 MG/2.5ML INH SOL NEB SCH (18:24)
[2025-01-26 22:02] VITALS: BP 141/65; PULSE 71; PULSE 74; RESP 20; TEMP 97.2; O2SAT 100
[2025-01-26] MEDS: APIXABAN 2.5 MG TAB PO SCH (22:37)
[2025-01-26] MEDS: RANOLAZINE ER 500 MG TAB PO SCH (22:37)
[2025-01-26] MEDS: CARVEDILOL 12.5 MG TAB PO SCH (22:38)
[2025-01-26] MEDS: ATORVASTATIN 20 MG TAB PO SCH (22:39)
[2025-01-26] MEDS: HYDROcodone-ACET 5/325MG TAB PO PRN (22:41)
[2025-01-27] VITALS (15 sets, daily range): BP systolic 91–120; BP diastolic 43–62; PULSE 67–80; RESP 14–19; TEMP 97.6–98.2; O2SAT 96–100
[2025-01-27 06:57] LABS: Hematocrit 23.1 % (36.0-46.0); Hemoglobin 7.7 g/dL (12.2-16.2); Nucleated Red Blood Cells % 0.1 %
[2025-01-27 06:59] LABS: Mean Corpuscular Hemoglobin 30.5 pg (28.0-32.0); Mean Corpuscular Volume 92.0 fL (80.0-100.0)
[2025-01-27 07:15] LABS: Alanine Aminotransferase 12 U/L (7-40); Albumin 3.7 g/dL (3.2-4.8); Alkaline Phosphatase 69 U/L (46-116); Anion Gap 8 (5-15); BUN/Creatinine Ratio 24.2 (10.0-20.0); Blood Urea Nitrogen 15 mg/dL (9-23); Calcium 9.1 mg/dL (8.7-10.4); Carbon Dioxide 28 mmol/L (20-31); Glucose 87 mg/dL (74-106); Potassium 3.7 mmol/L (3.5-5.1)
[2025-01-27 07:16] LABS: Bilirubin, Total 0.3 mg/dL (0.2-1.0); Chloride 109 mmol/L (98-107); Sodium 145 mmol/L (136-145); Total Protein 5.5 g/dL (5.7-8.2)
[2025-01-27] MEDS: NITROGLYCERIN 0.4 MG SL TAB SL PRN (08:56)
[2025-01-27] MEDS: POTASSIUM CHL 10 Meq TABLET PO SCH (09:10)
[2025-01-27] MEDS: PANTOPRAZOLE 40 MG TAB PO SCH (09:11)
[2025-01-27] MEDS: ISOSORBIDE MONONITRATE ER 60 MG TAB PO SCH (09:11)
[2025-01-27] MEDS: CLOPIDOGREL BISULFATE 75 MG TAB PO SCH (09:11)
[2025-01-27] MEDS: FUROSEMIDE 40 MG TAB PO SCH (09:12)
[2025-01-27] MEDS: ASCORBIC ACID 500 MG TAB PO SCH (09:13)
[2025-01-27] MEDS ORDERED: ASCORBIC ACID 500 MG TAB PO SCH (10:00)
[2025-01-27] MEDS ORDERED: ENOXAPARIN SOD 40 MG/0.4 ML SYRINGE SC SCH (10:00)
--- NOTE | 2025-01-27 10:14 | DVHINCON2 ---
Date of service: Jan 27, 2025 History of Present Illness HPI 74-year-old female presented with chest discomfort/productive cough/nasal congestion and abdominal pain. Chest pains have been pleuritic type. Cardiology was involved for cardiac aspects of care. Does have baseline history of coronary artery disease and status post bypass surgery. Is known to have abnormal nuclear stress test and the patient had previously decided to manage it medically. Patient had right and left heart catheterization and BRAD earlier this month. Since admission, serial troponin has been negative. Home Meds Active Scripts Docusate Sodium (Docusate Sodium) 100 Mg Cap, 100 MG PO BIDPRN PRN for 30 Days, #60 CAP 0 Refills Prov:CHERRY HARRINGTON RESIDENT 01/14/25 Clopidogrel Bisulfate (Plavix) 75 Mg Tab, 75 MG PO DAILY for 30 Days, #30 TAB 0 Refills Prov:CHERRY HARRINGTON RESIDENT 01/14/25 Apixaban Base (ELIQUIS) 2.5 Mg Tab, 2.5 MG PO BID for 30 Days, #60 TAB 0 Refills Prov:CHERRY HARRINGTON RESIDENT 01/14/25 Ondansetron Odt 4MG Tab (ZOFRAN PO) 4 Mg Tb, 4 MG PO Q8HR PRN, #14 TAB ODT TAB-DISSOLVE IN MOUTH, THEN SWALLOW Prov:VITO SCHUSTER MD 07/08/23 Reported Medications Ferrous Sulfate (Ferosul) 325 Mg Tab, 1 TAB PO BID for 30 Days, #60 06/12/24 Dicyclomine Hcl (BENTYL CAPSULE) 10 Mg Cp, 1 CAP PO QID PRN for 5 Days, #20 06/12/24 Isosorbide Mononitrate (Isosorbide Mononitrate Er) 60 Mg Tab, 1 TAB PO DAILY for 90 Days, #90 06/12/24 Siaichzdcha-Gqrgrtrohrgq-Gedch (Trelegy Ellipta 200-62.5-25 Mcg/INH) 1 Aer Aer, 1 PUFF IN DAILY for 30 Days, #60 06/12/24 Carvedilol (Carvedilol) 25 Mg Tab, 1 TAB PO TID for 30 Days, #90 02/22/24 Tramadol Hcl (Tramadol Hcl) 50 Mg Tab, 50 MG PO BID PRN for PAIN SCALE 1 THRU 6, MG 3/6/24 Coabvddkeot-Qywtlnfigpi-Yxl C- (Glucosamine Chondroitin) Tab, 1500 MG PO BID, TAB 10/11/23 Zinc Sulfate (Zinc Sulfate) 220 Mg Cap, 50 MG PO DAILY for 30 Days, MG 10/11/23 Ascorbic Acid (VITAMIN C TABLET) 500 Mg Tb, 2000 MG PO DAILY, #30 TAB 3 Refills 10/11/23 Nitroglycerin (Nitroglycerin Lingual) 0.4 Mg/[place] Spr, 0.4 MG TL BID PRN for FOR CHEST PAIN, SPR 10/11/23 Magnesium Oxide (MAGNESIUM OXIDE) 400 Mg Tab, 1 TAB PO DAILY for 30 Days, #30 10/11/23 Evolocumab (Repatha) 140 Mg/Ml Inj, 1 ML SC Q2WEEK for 56 Days, #14 INJECT 1 ML SUBCUTANEOUSLY EVERY 2 WEEKS. 09/07/23 Potassium Chloride (K-Tabs) 10 Meq Tab, 1 TAB.CHEW PO DAILY 07/01/22 Pantoprazole Sodium Sesquihydr (Pantoprazole Sodium) 40 Mg Tab, 1 TAB PO DAILY for 30 Days, #30 07/01/22 Ranolazine (Ranolazine ER) 500 Mg Tab, 1 TAB PO BID for 30 Days, #60 07/01/22 Furosemide (Furosemide) 40 Mg Tab, 1 TAB PO DAILY for 90 Days, #90 07/01/22 Atorvastatin Calcium (ATORVASTATIN CALCIUM) 40 Mg Tab, 1 TAB PO HS for 30 Days, #30 07/01/22 Montelukast Sodium (MONTELUKAST SODIUM) 10 Mg Tab, 1 TAB PO DAILY for 30 Days, #30 07/01/22 Ticagrelor Base (BRILINTA) 90 Mg Tab, 1 TAB PO BID for 30 Days, #60 07/01/22 Past Medical History Others Past medical history includes diabetes mellitus, hyperlipidemia, hypertension, diastolic heart failure, peripheral artery disease, GERD, anxiety, anemia, asthma, coronary artery disease, status post CABG and PCI, status post pacemaker implantation (Medtronic), status post old CVA, paroxysmal atrial flutter (on Eliquis), COPD on home oxygen, fibromyalgia, pulmonary hypertension, history of poor functional status, history of GI bleeding, pulmonary fibrosis, hiatal hernia, ex-smoker, status post gold cholecystectomy/hysterectomy. Is known to have closed grafts for CABG. Has had high risk PCI/left main in [facility] (few years back). Does have history of abnormal nuclear stress test and the plan has been to manage her medically. Has been kept on Eliquis and Plavix as outpatient. She is ex-smoker. Left heart catheterization revealed multivessel coronary artery disease. SVG nourishing 1 of the ramus intermedius was diseased but the decision was to manage it medically (ramus intermedius had good flow from patent left main (left main was stented before) Patient Family History: Alcoholism Cardiovascular disease G8 FATHER FHx: lung cancer Hypertension G8 FATHER Secondary malignant neoplasm of lung G8 MOTHER Alocohol: None Drugs: None Review of Systems Constitutional: Chills Pulmonary/Respiratory: Dyspnea, Pleuritic Chest Pain Cardiovascular: Chest Pain All Other Systems 14 point review of system was performed. Relevant findings as per above and as per HPI. Otherwise negative. H&P Exam Vital Signs Vital Signs Date Time Temp Pulse Resp B/P (MAP) Pulse Ox O2 Delivery O2 Flow Rate FiO2 01/27/25 09:12 112/62 01/27/25 09:01 97.6 70 18 100 97.6 01/27/25 06:37 Nasal Cannula 3.0 01/27/25 06:37 32 General Appeara: Well developed Eye Exam: bilateral eye PERRL Nasal Exam: Normal inspection Mouth: Normal Inspection Pulmonary/Respiratory: Rhonci Cardiovascular/Chest: Regular rate, Systolic murmur Peripheral Pulses: 2+ carotid (R), 2+ carotid (L), 2+ femoral (R), 2+ femoral (L), 2+ dorsalis pedis (R), 2+ dorsalis pedis (L), 2+ Radial (R), 2+ Radial (L) Abdominal Exam: Normal bowel sounds, Soft Neuro/Mental St: Alert, Oriented Appearance: Appropriate appearance Eye contact/ Speech: Cooperative Labs/Xrays Labs Test 01/27/25 06:26 01/26/25 12:16 Range/Units White Blood Count 4.1 #L 4.4-10.8 10^3/uL Red Blood Count 2.52 L 4.0-5.20 10^6/uL Hemoglobin 7.7 L 12.2-16.2 g/dL Hematocrit 23.1 L 36.0-46.0 % Mean Corpuscular Volume 92.0 80.0-100.0 fL Mean Corpuscular Hemoglobin 30.5 28.0-32.0 pg Mean Corpuscular Hemoglobin Concent 33.1 32.0-36.0 g/dL Red Cell Distribution Width 18.5 H 11.8-14.3 % Platelet Count 187 140-450 10^3/uL Mean Platelet Volume 7.3 6.9-10.8 fL Neutrophils (%) (Auto) 65.3 37.0-80.0 % Lymphocytes (%) (Auto) 14.1 10.0-50.0 % Monocytes (%) (Auto) 11.0 0.0-12.0 % Eosinophils (%) (Auto) 8.7 H 0.0-7.0 % Basophils (%) (Auto) 0.9 0.0-2.0 % Neutrophils # (Auto) 2.7 1.6-8.6 10 ^3/uL Lymphocytes # (Auto) 0.6 0.4-5.4 10 ^3/uL Monocytes # (Auto) 0.5 0-1.3 10 ^3/uL Eosinophils # (Auto) 0.4 0-0.8 10 ^3/uL Basophils # (Auto) 0 0-0.2 10 ^3/uL Nucleated Red Blood Cells 0.1 % Sodium Level 145 136-145 mmol/L Potassium Level 3.7 3.5-5.1 mmol/L Chloride Level 109 H 98-107 mmol/L Carbon Dioxide Level 28 20-31 mmol/L Anion Gap 8 5-15 Blood Urea Nitrogen 15 9-23 mg/dL Creatinine 0.62 0.550-1.02 mg/dL Glomerular Filtration Rate Calc 93 >90 mL/min BUN/Creatinine Ratio 24.2 H 10.0-20.0 Serum Glucose 87 74-106 mg/dL Calcium Level 9.1 8.7-10.4 mg/dL Total Bilirubin 0.3 0.2-1.0 mg/dL Aspartate Amino Transferase (AST) 19 <34 U/L Alanine Aminotransferase (ALT) 12 7-40 U/L Alkaline Phosphatase 69 46-116 U/L Total Protein 5.5 L 5.7-8.2 g/dL Albumin 3.7 3.2-4.8 g/dL Troponin I High Sensitivity 3 L </=34 ng/L Assessment/Plan Plan 74-year-old female presented with chest discomfort/productive cough/nasal congestion and abdominal pain. Chest pains have been pleuritic type. Cardiology was involved for cardiac aspects of care. Does have baseline history of coronary artery disease and status post bypass surgery. Is known to have abnormal nuclear stress test and the patient had previously decided to manage it medically. Patient had right and left heart catheterization and BRAD earlier this month. Since admission, serial troponin has been negative. Lying comfortably flat in bed. No JVD. pink mucosa. Lungs reveal scattered rhonchi. Cardiac: Regular, no thrills/murmur. Abdomen is soft. No hepatomegaly. Bowel sounds positive. Lower extremities do not reveal edema. Dorsalis pedis is 2+ bilateral Past medical history includes diabetes mellitus, hyperlipidemia, hypertension, diastolic heart failure, peripheral artery disease, GERD, anxiety, anemia, asthma, coronary artery disease, status post CABG and PCI, status post pacemaker implantation (Medtronic), status post old CVA, paroxysmal atrial flutter (on Eliquis), COPD on home oxygen, fibromyalgia, pulmonary hypertension, history of poor functional status, history of GI bleeding, pulmonary fibrosis, hiatal her alvaro, ex-smoker, status post gold cholecystectomy/hysterectomy. Is known to have closed grafts for CABG. Has had high risk PCI/left main in [facility] (few years back). Does have history of abnormal nuclear stress test and the plan has been to manage her medically. Has been kept on Eliquis and Plavix as outpatient. She is ex-smoker. Left heart catheterization revealed multivessel coronary artery disease. SVG nourishing 1 of the ramus intermedius was diseased but the decision was to manage it medically (ramus intermedius had good flow from patent left main (left main was stented before). Has been offered to go for Watchman device as outpatient. Echocardiogram of January 09, 2023 revealed LVEF of 55 to 60%, mild concentric left ventricular hypertrophy, no wall motion abnormality, mild biatrial enlargement, pacing wire in right-sided chambers, mild to moderate aortic insufficiency, mild mitral regurgitation, mild to moderate tricuspid regurgitation and right ventricular systolic pressure of 35 mmHg Echocardiogram of March 07, 2023 had revealed ejection fraction of 55 to 60%, mild concentric left ventricular hypertrophy, mild AI/MR/PI, mild biatrial enlargement, pacemaker wire in the right-sided chambers and right ventricular systolic pressure of 34 mmHg Echocardiogram of September 06, 2023 revealed ejection fraction of 55% and pacemaker in right-sided chambers Echocardiogram of December 26, 2023 had reported ejection fraction of 55-60%, no wall motion abnormality, [id number] aortic insufficiency, mild MR, moderate TR and right ventricular systolic pressure 42 mm Hg Echocardiogram of August 30, 2024 reported ejection fraction of 55-60%, no wall motion abnormality, mild biatrial enlargement, pacemaker in the right-sided chambers, mild AI/MR and moderate tricuspid regurgitation. Right ventricular systolic pressure was assessed at 41 mm Hg. Echocardiogram of December 20, 2024 (performed in the office) revealed ejection fraction of 60-65%, mild concentric left ventricular hypertrophy, pseudo normal LV filling, mild biatrial enlargement, mild right ventricular enlargement with good systolic function, moderate aortic insufficiency, aortic sclerosis with no stenosis, mild mitral annular calcification, [id number] MR/TR and right ventricular systolic pressure of 53 mm Hg. Echocardiogram of January 10, 2025 revealed mild concentric left ventricular hypertrophy, ejection fraction of 60-65%, pseudo normal LV filling, [id number] aortic insufficiency, mild mitral regurgitation, moderate tricuspid regurgitation and right ventricular systolic pressure of 67 mm Hg. BRAD of January 13, 2025 revealed no significant valvular disease Right and left heart catheterization of January 13, 2025 revealed multivessel coronary artery disease LVEF of around 50%; Apical aneurysm; Increased LVEDP (19 mm Hg); No pulmonary hypertension; Patent left main stent into LCX (dominant vessel) with no significant disease; Proximal LAD was [employer] with minor parallel collaterals. LAD was a diffusely diseased vessel with areas of focal aneurysm; Presence of 2 ramus intermedius; One of the ramus intermedius is with mild disease; Second ramus: Relatively small vessel with mild disease. There was SVG 'also' nourishing it. SVG itself had ostial and middle SVG section disease (decision was made to manage it medically); DANIELLE was atretic but patent; There was 2 other SVG's which were [employer] at ostium and suggestion was for medical therapy WBC: 7.9 - 4.1 Hemoglobin: 8.4 - 7.7 Creatinine: 0.64 - 0.62 Potassium: 3.8 - 3.7 Troponin (high sensitive): 4 - 3 Chest x-ray revealed: EKG revealed sinus rhythm with nonspecific ST-T changes Telemetry reveals sinus rhythm and occasions of paced rhythm. Patient is a 74-year-old female who presented with atypical chest discomfort/productive cough/nasal congestion/abdominal pain for few days. Chest pain has been pleuritic. Acute coronary syndrome is not considered. Serial high sensitive troponin has been negative. It is of note that the patient had right and left heart catheterization earlier this month and the result pointed toward medical management. Chest discomfort, atypical Pleuritic chest pain COPD exacerbation Coronary artery disease, status post CABG/PCI Paroxysmal atrial flutter, history of (on Eliquis as outpatient) COPD/Emphysema Pulmonary fibrosis Pulmonary hypertension, history of Chronic diastolic heart failure Status post pacemaker Hypokalemia Paroxysmal atrial flutter with RVR Cardiac suggestions for management: Manage on telemetry Follow-up electrolytes and kidney function and correct abnormalities, keep potassium above 4 magnesium above 2 Optimized medical therapy Continuation of full anticoagulation for history of paroxysmal atrial flutter is suggested (patient on Eliquis) Plavix/Eliquis Antianginal therapy Continuation of Statin/Ranexa/Imdur (what patient takes as outpatient) is suggested Further evaluation and management depends on the above and clinical course A total of 75 minutes was spent reviewing the patient record, examining the patient, making a diagnostic and therapeutic plan, discussing this plan with medical personnel, following up on diagnostic studies and following the patient for clinical stability excluding any and all procedures. At least 50% of this time was spent in direct, [id number] contact. Thank you for allowing me to participate in this patient's care. Further recommendations will depend on patient's clinical course. Please do not hesitate to contact me if you have any questions or concerns. This medical document was created using electronic medical record system with iPrint computerized dictation system. Although this document has been carefully reviewed, there may still be some phonetic and typographical errors. These areas are purely typographical due to the imperfection of the software programs, and do not reflect any compromise in the patient's medical care. Plan discussed with: Patient, Other (Nurse) AJAY SMALLWOOD MD Jan 27, 2025 10:14
[2025-01-27 10:28] LABS: Hepatitis B Surface Antigen Negative (Negative)
[2025-01-27 10:30] LABS: Hepatitis C Antibody Negative (Negative)
[2025-01-27] MEDS: MORPHINE SULFATE 4 MG/ML SYR/VIAL IV PRN (12:31)
--- NOTE | 2025-01-27 15:42 | DVHPN2 ---
Progress Note Date Seen: Jan 27, 2025 Medical Necessity Reason Pt with a Central, PICC or Fol: No Subjective Patient reports: No new complaints Review of Systems: HEENT:Normal, CVS:Normal, RESPIRATORY:Normal, GI:Normal, :Normal, MSK:Normal, NEURO:Normal Objective vital signs Vital Sign Date Time Temp Pulse Resp B/P (MAP) Pulse Ox O2 Delivery O2 Flow Rate FiO2 01/27/25 13:58 80 98/43 01/27/25 13:01 18 01/27/25 13:00 98.0 97 98.0 01/27/25 10:00 Nasal Cannula* 2 28 Total Intake and Output 01/26/25 01/26/25 01/27/25 15:00 23:00 07:00 Intake Total 100 ml Balance 100 ml medications Current Medications Medications Dose Ordered Sig/Romaine Route Start Time Stop Time Status Last Admin Dose Admin Acetaminophen/ Hydrocodone Bitart 1 tab Q4HP PRN PO 01/26/25 15:30 01/26/25 22:41 1 TAB Ondansetron HCl 4 mg Q4HP PRN IV 01/26/25 15:30 01/27/25 09:10 4 MG Enoxaparin Sodium 40 mg DAILY SC 01/27/25 10:00 UNV Acetaminophen 650 mg Q6HP PRN PO 01/26/25 15:30 Nitroglycerin 0.4 mg Q5MINP PRN SL 01/26/25 15:30 01/27/25 08:56 0.4 MG Apixaban 2.5 mg BID PO 01/26/25 22:00 01/27/25 09:11 2.5 MG Ascorbic Acid 2,000 mg DAILY PO 01/27/25 10:00 UNV Clopidogrel Bisulfate 75 mg DAILY PO 01/27/25 10:00 01/27/25 09:11 75 MG Furosemide 40 mg DAILY PO 01/27/25 10:00 01/27/25 09:12 40 MG Isosorbide Mononitrate 60 mg DAILY PO 01/27/25 10:00 01/27/25 09:11 60 MG Pantoprazole Sodium 40 mg DAILY PO 01/27/25 10:00 01/27/25 09:11 40 MG Potassium Chloride 10 meq DAILY PO 01/27/25 10:00 01/27/25 09:10 10 MEQ Ranolazine 500 mg BID PO 01/26/25 22:00 01/27/25 09:12 500 MG Atorvastatin Calcium 40 mg HS PO 01/26/25 22:00 01/26/25 22:39 40 MG Carvedilol 25 mg TID PO 01/26/25 22:00 01/26/25 22:38 25 MG Albuterol 2.5 mg Q6HWA [facility] 01/26/25 18:00 01/27/25 11:29 2.5 MG Ipratropium [place] 0.5 mg Q6HWA NE[facility] 01/26/25 18:00 01/27/25 11:29 0.5 MG Ascorbic Acid 2,000 mg DAILY PO 01/27/25 10:00 01/27/25 09:13 2,000 MG Morphine Sulfate 2 mg Q30M PRN IV 01/27/25 12:30 01/27/25 12:31 2 MG Examination: GENERAL:Normal, HEENT:Normal, NECK:Normal, LUNGS:Normal, LUNGS:Abnormal (ON OXYGEN), CVS:Normal, ABDOMEN:Normal, MSK:Normal, SKIN:Normal, NEURO:Normal, :Normal laboratory and microbiology Laboratory Tests 01/27/25 06:26 Test 01/27/25 06:26 Range/Units Serum Glucose 87 74-106 mg/dL Microbiology Date/Time Source Procedure Growth Status 01/27/25 00:05 Nose MRSA Screen - Final Complete Problem List/Assessment/Plan Problem List/Assessment/Plan #1 left chest pain ?pleuritic: toradol #2 anemia: hold eliquis, stool occult, gi eval #3 cad s/p cabg s/p pci: per cardiology #4 pvd #5 copd/pulmonary fibrosis #6 htn #7 chronic resp failure #8 h/o cva #9 s/p a flutter: hold eliquis #10 s/p pacer advance care planning- full code- time spent 19 mins Plan discussed with: Patient Date of Service: Jan 27, 2025 Billing Provider: CALE FAGAN MD Common Visit Codes: [id number] INP/OBS CARE(HIGH) Secondary Visit Codes: [id number] CARE PLAN 30 MINUTES CALE FAGAN MD Jan 27, 2025 15:42
[2025-01-27] MEDS: KETOROLAC TROMETH 30 MG/ML 1ML VIAL IV ONE (18:02)
[2025-01-27 18:28] LABS: Urine Protein, UAD Negative (Negative)
[2025-01-28] VITALS (15 sets, daily range): BP systolic 106–139; BP diastolic 38–60; PULSE 70–90; RESP 16–22; TEMP 97.3–98.3; O2SAT 93–100
[2025-01-28 07:08] LABS: Hematocrit 24.7 % (36.0-46.0); Hemoglobin 8.1 g/dL (12.2-16.2); Mean Corpuscular Hemoglobin 30.2 pg (28.0-32.0); Mean Corpuscular Volume 92.4 fL (80.0-100.0); Nucleated Red Blood Cells % 0.1 %
[2025-01-28 07:20] LABS: Chloride 102 mmol/L (98-107); Potassium 3.6 mmol/L (3.5-5.1); Sodium 141 mmol/L (136-145)
[2025-01-28 07:21] LABS: Anion Gap 11 (5-15); Calcium 9.4 mg/dL (8.7-10.4); Carbon Dioxide 28 mmol/L (20-31)
[2025-01-28 07:22] LABS: INR 1.34 (0.9-1.15); Partial Thromboplastin Time 28.6 SEC (24.5-34.5); Prothrombin Time 13.8 sec (9.3-11.8)
--- NOTE | 2025-01-28 07:23 | DVHPN2 ---
Progress Note - Dictate Date Seen: Jan 28, 2025 Medical Necessity Reason Pt with a Central, PICC or Fol: No vital signs Vital Sign Date Time Temp Pulse Resp B/P (MAP) Pulse Ox O2 Delivery O2 Flow Rate FiO2 01/28/25 06:59 70 115/55 01/28/25 04:30 98.3 16 98 98.3 01/27/25 20:00 Nasal Cannula* 2 28 Total Intake and Output 01/27/25 01/27/25 01/28/25 15:00 23:00 07:00 Intake Total 600 ml 730 ml Balance 600 ml 730 ml medications Current Medications Medications Dose Ordered Sig/Romaine Route Start Time Stop Time Status Last Admin Dose Admin Acetaminophen/ Hydrocodone Bitart 1 tab Q4HP PRN PO 01/26/25 15:30 01/28/25 06:04 1 TAB Ondansetron HCl 4 mg Q4HP PRN IV 01/26/25 15:30 01/27/25 09:10 4 MG Enoxaparin Sodium 40 mg DAILY SC 01/27/25 10:00 UNV Acetaminophen 650 mg Q6HP PRN PO 01/26/25 15:30 Nitroglycerin 0.4 mg Q5MINP PRN SL 01/26/25 15:30 01/27/25 08:56 0.4 MG Ascorbic Acid 2,000 mg DAILY PO 01/27/25 10:00 UNV Clopidogrel Bisulfate 75 mg DAILY PO 01/27/25 10:00 01/27/25 09:11 75 MG Furosemide 40 mg DAILY PO 01/27/25 10:00 01/27/25 09:12 40 MG Isosorbide Mononitrate 60 mg DAILY PO 01/27/25 10:00 01/27/25 09:11 60 MG Pantoprazole Sodium 40 mg DAILY PO 01/27/25 10:00 01/27/25 09:11 40 MG Potassium Chloride 10 meq DAILY PO 01/27/25 10:00 01/27/25 09:10 10 MEQ Ranolazine 500 mg BID PO 01/26/25 22:00 01/27/25 22:34 500 MG Atorvastatin Calcium 40 mg HS PO 01/26/25 22:00 01/27/25 22:33 40 MG Carvedilol 25 mg TID PO 01/26/25 22:00 01/28/25 05:59 25 MG Albuterol 2.5 mg Q6HWA NEB 01/26/25 18:00 01/27/25 18:53 2.5 MG Ipratropium [place] 0.5 mg Q6HWA [facility] 01/26/25 18:00 01/27/25 18:54 0.5 MG Morphine Sulfate 2 mg Q30M PRN IV 01/27/25 12:30 01/27/25 12:31 2 MG laboratory and microbiology Laboratory Tests 01/28/25 05:52 Test 01/28/25 05:52 Range/Units Serum Glucose Pending Assessment/Plan 74-year-old female presented with chest discomfort/productive cough/nasal congestion and abdominal pain. Chest pains have been pleuritic type. Cardiology was involved for cardiac aspects of care. Does have baseline history of coronary artery disease and status post bypass surgery. Is known to have abnormal nuclear stress test and the patient had previously decided to manage it medically. Patient had right and left heart catheterization and BRAD earlier this month. Since admission, serial troponin has been negative. Lying comfortably flat in bed. No JVD. pink mucosa. Lungs reveal scattered rhonchi. Cardiac: Regular, no thrills/murmur. Abdomen is soft. No hepatomegaly. Bowel sounds positive. Lower extremities do not reveal edema. Dorsalis pedis is 2+ bilateral Past medical history includes diabetes mellitus, hyperlipidemia, hypertension, diastolic heart failure, peripheral artery disease, GERD, anxiety, anemia, asthma, coronary artery disease, status post CABG and PCI, status post pacemaker implantation ([employer]), status post old CVA, paroxysmal atrial flutter (on Eliquis), COPD on home oxygen, fibromyalgia, pulmonary hypertension, history of poor functional status, history of GI bleeding, pulmonary fibrosis, hiatal hernia, ex-smoker, status post gold cholecystectomy/hysterectomy. Is known to have closed grafts for CABG. Has had high risk PCI/left main in [facility] (few years back). Does have history of abnormal nuclear stress test and the plan has been to manage her medically. Has been kept on Eliquis and Plavix as outpatient. She is ex-smoker. Left heart catheterization revealed multivessel coronary artery disease. SVG nourishing 1 of the ramus intermedius was diseased but the decision was to manage it medically (ramus intermedius had good flow from patent left main (left main was stented before). Has been offered to go for Watchman device as outpatient. Echocardiogram of January 09, 2023 revealed LVEF of 55 to 60%, mild concentric left ventricular hypertrophy, no wall motion abnormality, mild biatrial enlargement, pacing wire in right-sided chambers, mild to moderate aortic insufficiency, mild mitral regurgitation, mild to moderate tricuspid regurgitation and right ventricular systolic pressure of 35 mmHg Echocardiogram of March 07, 2023 had revealed ejection fraction of 55 to 60%, mild concentric left ventricular hypertrophy, mild AI/MR/PI, mild biatrial enlargement, pacemaker wire in the right-sided chambers and right ventricular systolic pressure of 34 mmHg Echocardiogram of September 06, 2023 revealed ejection fraction of 55% and pacemaker in right-sided chambers Echocardiogram of December 26, 2023 had reported ejection fraction of 55-60%, no wall motion abnormality, [id number] aortic insufficiency, mild MR, moderate TR and right ventricular systolic pressure 42 mm Hg Echocardiogram of August 30, 2024 reported ejection fraction of 55-60%, no wall motion abnormality, mild biatrial enlargement, pacemaker in the right-sided chambers, mild AI/MR and moderate tricuspid regurgitation. Right ventricular systolic pressure was assessed at 41 mm Hg. Echocardiogram of December 20, 2024 (performed in the office) revealed ejection fraction of 60-65%, mild concentric left ventricular hypertrophy, pseudo normal LV filling, mild biatrial enlargement, mild right ventricular enlargement with good systolic function, moderate aortic insufficiency, aortic sclerosis with no stenosis, mild mitral annular calcification, [id number] MR/TR and right ventricular systolic pressure of 53 mm Hg. Echocardiogram of January 10, 2025 revealed mild concentric left ventricular hypertrophy, ejection fraction of 60-65%, pseudo normal LV filling, [id number] aortic insufficiency, mild mitral regurgitation, moderate tricuspid regurgitation and right ventricular systolic pressure of 67 mm Hg. BRAD of January 13, 2025 revealed no significant valvular disease Right and left heart catheterization of January 13, 2025 revealed multivessel coronary artery disease LVEF of around 50%; Apical aneurysm; Increased LVEDP (19 mm Hg); No pulmonary hypertension; Patent left main stent into LCX (dominant vessel) with no significant disease; Proximal LAD was TRANSIT OPERATOR with minor parallel collaterals. LAD was a diffusely diseased vessel with areas of focal aneurysm; Presence of 2 ramus intermedius; One of the ramus intermedius is with mild disease; Second ramus: Relatively small vessel with mild disease. There was SVG 'also' nourishing it. SVG itself had ostial and middle SVG section disease (decision was made to manage it medically); DANIELLE was atretic but patent; There was 2 other SVG's which were TRANSIT OPERATOR at ostium and suggestion was for medical therapy WBC: 7.9 - 4.1 - 5.3 Hemoglobin: 8.4 - 7.7 - 8.1 Creatinine: 0.64 - 0.62 - 0.90 Potassium: 3.8 - 3.7 - 3.6 Troponin (high sensitive): 4 - 3 Chest x-ray revealed: 1. Improvement in left lung base consolidation since prior. This could be improvement in atelectasis or pneumonia. 2. Mild cardiomegaly. Prior median sternotomy and CABG. 3. Diffuse reticular and interstitial opacities of the lungs likely related to known fibrosis. EKG revealed sinus rhythm with nonspecific ST-T changes Telemetry reveals sinus rhythm and occasions of paced rhythm. Patient is a 74-year-old female who presented with atypical chest discomfort/productive cough/nasal congestion/abdominal pain for few days. Chest pain has been pleuritic. Acute coronary syndrome is not considered. Serial high sensitive troponin has been negative. It is of note that the patient had right and left heart catheterization earlier this month and the result pointed toward medical management. Chest discomfort, atypical Pleuritic chest pain COPD exacerbation Coronary artery disease, status post CABG/PCI Paroxysmal atrial flutter, history of (on Eliquis as outpatient) COPD/Emphysema Pulmonary fibrosis Pulmonary hypertension, history of Chronic diastolic heart failure Status post pacemaker Hypokalemia Paroxysmal atrial flutter with RVR Cardiac suggestions for management: Manage on telemetry Follow-up electrolytes and kidney function and correct abnormalities, keep potassium above 4 magnesium above 2 Optimized medical therapy spring former machine continuation of full anticoagulation for history of paroxysmal atrial flutter is suggested (patient on Eliquis as outpatient). Primary team held Eliquis for anemia at this point Continue Plavix (CAD h/o Left Main stenting) Antianginal therapy Continuation of Statin/Ranexa/Imdur/Coreg is suggested Further evaluation and management depends on the above and clinical course A total of 55 minutes was spent reviewing the patient record, examining the patient, making a diagnostic and therapeutic plan, discussing this plan with medical personnel, following up on diagnostic studies and following the patient for clinical stability excluding any and all procedures. At least 50% of this time was spent in direct, [id number] contact. Thank you for allowing me to participate in this patient's care. Further recommendations will depend on patient's clinical course. Please do not hesitate to contact me if you have any questions or concerns. This medical document was created using electronic medical record system with [employer] computerized dictation system. Although this document has been carefully reviewed, there may still be some phonetic and typographical errors. These areas are purely typographical due to the imperfection of the software programs, and do not reflect any compromise in the patient's medical care. Plan discussed with: Patient, Other (nurse) AJAY SMALLWOOD MD Jan 28, 2025 07:23
[2025-01-28 07:26] LABS: BUN/Creatinine Ratio 16.7 (10.0-20.0); Blood Urea Nitrogen 15 mg/dL (9-23); Glucose 94 mg/dL (74-106)
--- NOTE | 2025-01-28 08:15 | ECG ---
[facility] Test Date: 2025-01-27 Test Time: 08:42:34 Pat Name: EUN PAIZ Department: Room: [facility] A Gender: F Art Preparator: ANGELA : 1950 Requested By: TAWANA SIMPSON Order Number: [id number] Reading MD: Bobby Ramey Measurements Intervals [place] Rate: 76 P: 0 MN: 208 QRS: -14 QRSD: 94 T: 7 QT: 434 QTc: 489 Interpretive Statements Atrial-paced complexes Abnormal T, consider ischemia, anterior leads Electronically Signed On 01-28-2025 22:18:33 PDT by Bobby Ramey Please click the below link to view image of tracing.
--- NOTE | 2025-01-28 13:18 | DVHINCON2 ---
GI Consult Consult Note GI consult note Date of Consultation: 01/28/2025 Chief Complaint: Anemia possible GI bleed Referring Physician: H&P: 74-year-old female presented to ER with complains of chest pain. Patient is status post angiogram 01/13/2025. Patient is on Plavix and Eliquis. Last dose of Eliquis yesterday. Patient is still is on Plavix Denies abdominal pain. No nausea vomiting. No melena or red blood in stool. Last EGD 10/11/2023 Pathology Mild chronic inactive gastritis Barretts esophagus Past Medical History: Anemia, Asthma, CHF, COPD, CVA, DM, GERD, High Lipids, HTN, [place] Past Surgical History: CABG, Cholecystectomy, Hysterectomy, Pacemaker, PTCA, Tonsillectomy Social History: Smoker: Quit Greater Than 1 Year Alcohol: Denies ETOH Use Drugs: Denies Drug Use Lives In: Home Family History: Noncontributory Review of Systems: Constitutional: no fever, chill, weight loss HEENT: no eye pain, no hearing loss, no oral lesion, no scleral icterus Heart: no chest pain, no chest pressure Lung: no cough, no dyspnea with exertion Abdomen: see HPI Physical exam: General: NAD, AAOX3 Chest: lung barton clear to auscultation Heart: RRR, no murmur Abdomen: non-distended, no tenderness to palpation, +BS Labs: Test 01/28/25 05:52 Range/Units Serum Glucose Pending Imaging: Assessment: Anemia Gastritis History of Barretts esophagus History of marijuana use Plan: Discussed with Dr. Quiroga Monitor labs Protonix and Carafate Colace Stool for occult blood Recommend to hold Plavix for possible EGD if required if cleared by Cardiology tomorrow NPO after midnight Thank you for this consult Date of Service: Jan 28, 2025 Billing Provider: EDEN SLOAN Common Visit Codes: CONSULT ONLY Consultation Codes: [id number] CONSULT <60MIN EDEN SLOAN Jan 28, 2025 13:18
--- NOTE | 2025-01-28 14:24 | DVHPN2 ---
Progress Note Date Seen: Jan 28, 2025 Medical Necessity Reason Pt with a Central, PICC or Fol: No Subjective Patient reports: No new complaints Review of Systems: HEENT:Normal, CVS:Normal, RESPIRATORY:Normal, GI:Normal, :Normal, MSK:Normal, NEURO:Normal Objective vital signs Vital Sign Date Time Temp Pulse Resp B/P (MAP) Pulse Ox O2 Delivery O2 Flow Rate FiO2 01/28/25 13:00 97.3 71 18 114/43 (66) 95 97.3 01/28/25 12:08 Nasal Cannula* 2 28 Total Intake and Output 01/27/25 01/27/25 01/28/25 15:00 23:00 07:00 Intake Total 600 ml 730 ml Balance 600 ml 730 ml medications Current Medications Medications Dose Ordered Sig/Romaine Route Start Time Stop Time Status Last Admin Dose Admin Acetaminophen/ Hydrocodone Bitart 1 tab Q4HP PRN PO 01/26/25 15:30 01/28/25 12:21 1 TAB Ondansetron HCl 4 mg Q4HP PRN IV 01/26/25 15:30 01/28/25 08:07 4 MG Enoxaparin Sodium 40 mg DAILY SC 01/27/25 10:00 UNV Acetaminophen 650 mg Q6HP PRN PO 01/26/25 15:30 Nitroglycerin 0.4 mg Q5MINP PRN SL 01/26/25 15:30 01/27/25 08:56 0.4 MG Ascorbic Acid 2,000 mg DAILY PO 01/27/25 10:00 UNV Clopidogrel Bisulfate 75 mg DAILY PO 01/27/25 10:00 01/28/25 09:37 75 MG Furosemide 40 mg DAILY PO 01/27/25 10:00 01/28/25 09:36 40 MG Isosorbide Mononitrate 60 mg DAILY PO 01/27/25 10:00 01/28/25 09:37 60 MG Pantoprazole Sodium 40 mg DAILY PO 01/27/25 10:00 01/28/25 09:37 40 MG Potassium Chloride 10 meq DAILY PO 01/27/25 10:00 01/28/25 09:36 10 MEQ Ranolazine 500 mg BID PO 01/26/25 22:00 01/28/25 09:36 500 MG Atorvastatin Calcium 40 mg HS PO 01/26/25 22:00 01/27/25 22:33 40 MG Carvedilol 25 mg TID PO 01/26/25 22:00 01/28/25 05:59 25 MG Albuterol 2.5 mg Q6HWA [facility] 01/26/25 18:00 01/28/25 12:07 2.5 MG Ipratropium [place] 0.5 mg Q6HWA NEB 01/26/25 18:00 01/28/25 12:07 0.5 MG Morphine Sulfate 2 mg Q30M PRN IV 01/27/25 12:30 01/27/25 12:31 2 MG Sucralfate 1 gm BID@0600,2200 PO 01/28/25 22:00 Docusate Sodium 100 mg BIDPRN PRN PO 01/28/25 13:15 Examination: GENERAL:Normal, HEENT:Normal, NECK:Normal, LUNGS:Normal, CVS:Normal, ABDOMEN:Normal, MSK:Normal, SKIN:Normal, NEURO:Normal, :Normal laboratory and microbiology Laboratory Tests 01/28/25 05:52 Test 01/28/25 05:52 Range/Units Serum Glucose 94 74-106 mg/dL Microbiology Date/Time Source Procedure Growth Status 01/27/25 00:05 Nose MRSA Screen - Final Complete Problem List/Assessment/Plan Problem List/Assessment/Plan #1 left chest pain ?pleuritic: toradol #2 anemia: hold eliquis, stool occult, egd in am #3 cad s/p cabg s/p pci: per cardiology #4 pvd #5 copd/pulmonary fibrosis #6 htn #7 chronic resp failure #8 h/o cva #9 s/p a flutter: hold eliquis #10 s/p pacer advance care planning- full code- time spent 19 mins Plan discussed with: Patient My Orders My Orders Orders - CALE FAGAN MD Procedure Category Date Status Time Stool Occult Blood LAB 01/27/25 Uncollected 15:35 * Gi D[facility] Woodworking Machine Feeder CONS 01/27/25 Transmitted 15:35 Urinalysis LAB 01/27/25 Uncollected 15:35 Date of Service: Jan 28, 2025 Billing Provider: CALE FAGAN MD Common Visit Codes: [id number] INP/OBS CARE(HIGH) CALE FAGAN MD Jan 28, 2025 14:24
[2025-01-28] MEDS: DOCUSATE SOD 100 MG CAP PO PRN (16:47)
[2025-01-28] MEDS: KETOROLAC TROMETH 30 MG/ML 1ML VIAL IV ONE (16:47)
[2025-01-28] MEDS: SUCRALFATE 1 GM/10 ML ORAL SUSP PO SCH (21:12)
[2025-01-28] MEDS: KETOROLAC TROMETH 30 MG/ML 1ML VIAL IV PRN (23:17)
[2025-01-29] VITALS (16 sets, daily range): BP systolic 92–148; BP diastolic 45–79; PULSE 67–126; RESP 16–21; TEMP 97.6–98.3; O2SAT 97–100
--- NOTE | 2025-01-29 06:01 | DVHPN2 ---
Progress Note - Dictate Date Seen: Jan 29, 2025 Medical Necessity Reason Pt with a Central, PICC or Fol: No vital signs Vital Sign Date Time Temp Pulse Resp B/P (MAP) Pulse Ox O2 Delivery O2 Flow Rate FiO2 01/29/25 01:00 98.2 86 17 129/79 (96) 98 98.2 01/28/25 19:50 Nasal Cannula* 2 28 Total Intake and Output 01/28/25 01/28/25 01/29/25 15:00 23:00 07:00 Intake Total 400 ml Output Total 400 ml Balance 0 ml medications Current Medications Medications Dose Ordered Sig/Romaine Route Start Time Stop Time Status Last Admin Dose Admin Acetaminophen/ Hydrocodone Bitart 1 tab Q4HP PRN PO 01/26/25 15:30 01/28/25 12:21 1 TAB Ondansetron HCl 4 mg Q4HP PRN IV 01/26/25 15:30 01/28/25 08:07 4 MG Enoxaparin Sodium 40 mg DAILY SC 01/27/25 10:00 UNV Acetaminophen 650 mg Q6HP PRN PO 01/26/25 15:30 Nitroglycerin 0.4 mg Q5MINP PRN SL 01/26/25 15:30 01/27/25 08:56 0.4 MG Ascorbic Acid 2,000 mg DAILY PO 01/27/25 10:00 UNV Clopidogrel Bisulfate 75 mg DAILY PO 01/27/25 10:00 01/28/25 09:37 75 MG Furosemide 40 mg DAILY PO 01/27/25 10:00 01/28/25 09:36 40 MG Isosorbide Mononitrate 60 mg DAILY PO 01/27/25 10:00 01/28/25 09:37 60 MG Pantoprazole Sodium 40 mg DAILY PO 01/27/25 10:00 01/28/25 09:37 40 MG Potassium Chloride 10 meq DAILY PO 01/27/25 10:00 01/28/25 09:36 10 MEQ Ranolazine 500 mg BID PO 01/26/25 22:00 01/28/25 21:12 500 MG Atorvastatin Calcium 40 mg HS PO 01/26/25 22:00 01/28/25 21:12 40 MG Carvedilol 25 mg TID PO 01/26/25 22:00 01/28/25 05:59 25 MG Albuterol 2.5 mg Q6HWA NEB 01/26/25 18:00 01/28/25 19:06 2.5 MG Ipratropium [place] 0.5 mg Q6HWA NEB 01/26/25 18:00 01/28/25 19:06 0.5 MG Morphine Sulfate 2 mg Q30M PRN IV 01/27/25 12:30 01/27/25 12:31 2 MG Sucralfate 1 gm BID@0600,2200 PO 01/28/25 22:00 01/28/25 21:12 1 GM Docusate Sodium 100 mg BIDPRN PRN PO 01/28/25 13:15 01/28/25 16:47 100 MG Ketorolac Tromethamine 15 mg Q6HPRN PRN IV 01/28/25 20:30 02/02/25 14:29 01/28/25 23:17 15 MG laboratory and microbiology Laboratory Tests 01/28/25 05:52 Test 01/28/25 05:52 Range/Units Serum Glucose 94 74-106 mg/dL Assessment/Plan Complains of pleuretic chest pains. 74-year-old female presented with chest discomfort/productive cough/nasal congestion and abdominal pain. Chest pains have been pleuritic type. Cardiology was involved for cardiac aspects of care. Does have baseline history of coronary artery disease and status post bypass surgery. Is known to have abnormal nuclear stress test and the patient had previously decided to manage it medically. Patient had right and left heart catheterization and BRAD earlier this month. Since admission, serial troponin has been negative. Lying comfortably flat in bed. No JVD. pink mucosa. Lungs reveal scattered rhonchi. Cardiac: Regular, no thrills/murmur. Abdomen is soft. No hepatomegaly. Bowel sounds positive. Lower extremities do not reveal edema. Dorsalis pedis is 2+ bilateral Past medical history includes diabetes mellitus, hyperlipidemia, hypertension, diastolic heart failure, peripheral artery disease, GERD, anxiety, anemia, asthma, coronary artery disease, status post CABG and PCI, status post pacemaker implantation ([employer]), status post old CVA, paroxysmal atrial flutter (on Eliquis), COPD on home oxygen, fibromyalgia, pulmonary hypertension, history of poor functional status, history of GI bleeding, pulmonary fibrosis, hiatal hernia, ex-smoker, status post gold cholecystectomy/hysterectomy. Is known to have closed grafts for CABG. Has had high risk PCI/left main in [facility] (few years back). Does have history of abnormal nuclear stress test and the plan has been to manage her medically. Has been kept on Eliquis and Plavix as outpatient. She is ex-smoker. Left heart catheterization revealed multivessel coronary artery disease. SVG nourishing 1 of the ramus intermedius was diseased but the decision was to manage it medically (ramus intermedius had good flow from patent left main (left main was stented before). Has been offered to go for Watchman device as outpatient. Echocardiogram of January 09, 2023 revealed LVEF of 55 to 60%, mild concentric left ventricular hypertrophy, no wall motion abnormality, mild biatrial enlargement, pacing wire in right-sided chambers, mild to moderate aortic insufficiency, mild mitral regurgitation, mild to moderate tricuspid regurgitation and right ventricular systolic pressure of 35 mmHg Echocardiogram of March 07, 2023 had revealed ejection fraction of 55 to 60%, mild concentric left ventricular hypertrophy, mild AI/MR/PI, mild biatrial enlargement, pacemaker wire in the right-sided chambers and right ventricular systolic pressure of 34 mmHg Echocardiogram of September 06, 2023 revealed ejection fraction of 55% and pacemaker in right-sided chambers Echocardiogram of December 26, 2023 had reported ejection fraction of 55-60%, no wall motion abnormality, [id number] aortic insufficiency, mild MR, moderate TR and right ventricular systolic pressure 42 mm Hg Echocardiogram of August 30, 2024 reported ejection fraction of 55-60%, no wall motion abnormality, mild biatrial enlargement, pacemaker in the right-sided chambers, mild AI/MR and moderate tricuspid regurgitation. Right ventricular systolic pressure was assessed at 41 mm Hg. Echocardiogram of December 20, 2024 (performed in the office) revealed ejection fraction of 60-65%, mild concentric left ventricular hypertrophy, pseudo normal LV filling, mild biatrial enlargement, mild right ventricular enlargement with good systolic function, moderate aortic insufficiency, aortic sclerosis with no stenosis, mild mitral annular calcification, [id number] MR/TR and right ventricular systolic pressure of 53 mm Hg. Echocardiogram of January 10, 2025 revealed mild concentric left ventricular hypertrophy, ejection fraction of 60-65%, pseudo normal LV filling, [id number] aortic insufficiency, mild mitral regurgitation, moderate tricuspid regurgitation and right ventricular systolic pressure of 67 mm Hg. BRAD of January 13, 2025 revealed no significant valvular disease Right and left heart catheterization of January 13, 2025 revealed multivessel coronary artery disease LVEF of around 50%; Apical aneurysm; Increased LVEDP (19 mm Hg); No pulmonary hypertension; Patent left main stent into LCX (dominant vessel) with no significant disease; Proximal LAD was SHELTER CASE MANAGER with minor parallel collaterals. LAD was a diffusely diseased vessel with areas of focal aneurysm; Presence of 2 ramus intermedius; One of the ramus intermedius is with mild disease; Second ramus: Relatively small vessel with mild disease. There was SVG 'also' nourishing it. SVG itself had ostial and middle SVG section disease (decision was made to manage it medically); DANIELLE was atretic but patent; There was 2 other SVG's which were SHELTER CASE MANAGER at ostium and suggestion was for medical therapy WBC: 7.9 - 4.1 - 5.3 - 6.0 Hemoglobin: 8.4 - 7.7 - 8.1 - 8.0 Creatinine: 0.64 - 0.62 - 0.90 Potassium: 3.8 - 3.7 - 3.6 Troponin (high sensitive): 4 - 3 Chest x-ray revealed: 1. Improvement in left lung base consolidation since prior. This could be improvement in atelectasis or pneumonia. 2. Mild cardiomegaly. Prior median sternotomy and CABG. 3. Diffuse reticular and interstitial opacities of the lungs likely related to known fibrosis. EKG revealed sinus rhythm with nonspecific ST-T changes Telemetry reveals sinus rhythm and occasions of paced rhythm. Patient is a 74-year-old female who presented with atypical chest discomfort/productive cough/nasal congestion/abdominal pain for few days. Chest pain has been pleuritic. Acute coronary syndrome is not considered. Serial high sensitive troponin has been negative. It is of note that the patient had right and left heart catheterization earlier this month and the result pointed toward medical management. Chest discomfort, atypical Pleuritic chest pain COPD exacerbation Coronary artery disease, status post CABG/PCI Paroxysmal atrial flutter, history of (on Eliquis as outpatient) COPD/Emphysema Pulmonary fibrosis Pulmonary hypertension, history of Chronic diastolic heart failure Status post pacemaker Hypokalemia Paroxysmal atrial flutter with RVR Cardiac suggestions for management: Manage on telemetry Follow-up electrolytes and kidney function and correct abnormalities, keep potassium above 4 magnesium above 2 Optimized medical therapy senior living continuation of full anticoagulation for history of paroxysmal atrial flutter is suggested (patient on Eliquis as outpatient). Primary team held Eliquis for anemia at this point senior living continuation of Plavix (CAD h/o Left Main stenting) is suggested. You can hold it for possible endoscopy for now. Antianginal therapy Continuation of Statin/Ranexa/Imdur/Coreg is suggested Cardiac wilcox, patient is moderate risk patient for low risk EGD/Colonoscopy. Cardiac wilcox, you can proceed with EGD/Colonoscopy under appropriate intra and post operative hemodynamic monitoring. Avoid Hypotension. CT of chest Further evaluation and management depends on the above and clinical course A total of 55 minutes was spent reviewing the patient record, examining the patient, making a diagnostic and therapeutic plan, discussing this plan with medical personnel, following up on diagnostic studies and following the patient for clinical stability excluding any and all procedures. At least 50% of this time was spent in direct, [id number] contact. Thank you for allowing me to participate in this patient's care. Further recommendations will depend on patient's clinical course. Please do not hesitate to contact me if you have any questions or concerns. This medical document was created using electronic medical record system with [employer] computerized dictation system. Although this document has been carefully reviewed, there may still be some phonetic and typographical errors. These areas are purely typographical due to the imperfection of the software programs, and do not reflect any compromise in the patient's medical care. Plan discussed with: Patient, Other (nurse) AJAY SMALLWOOD MD Jan 29, 2025 06:01
[2025-01-29 06:06] LABS: Hemoglobin 8.0 g/dL (12.2-16.2); Nucleated Red Blood Cells % 0.0 %
[2025-01-29 06:08] LABS: Hematocrit 23.8 % (36.0-46.0); Mean Corpuscular Hemoglobin 30.6 pg (28.0-32.0); Mean Corpuscular Volume 90.6 fL (80.0-100.0)
--- NOTE | 2025-01-29 10:45 | DVH ---
Procedure: CT CHEST WITHOUT CONTRAST Reason for study/Clinical History: chest pain Comparison Study: US CHEST ULTRASOUND on DOS: 02/21/24, CT CHEST WITHOUT CONTRAST on DOS: 02/01/23 TECHNIQUE: Multidetector CT of the chest was performed from the lung apices to the upper abdomen with out the use of intravenous contract. Axial, coronal and sagittal multiplanar reformats were performed . Radiation Dose Information: CT Dose: CTDI volume is 15.58 mGy. Dose-length product is 451.5 mGy*cm The dose indicators for CT are the volume Computed Tomography (CT) Dose Index (CTDIvol) and the Dose Length Product (DLP), and are measured in units of mGy and mGy-cm, respectively. These indicators are not patient dose, but values generated from the CT scanner acquisition factors. The report includes radiation exposure data for exposures received during this examination. FINDINGS: Lower neck: Left chest wall pacemaker. Lungs: Stable changes of pulmonary fibrosis. Heart/Vascular Structures: Cardiomegaly. Coronary artery calcifications. Vascular calcifications of t he aorta. Lymph Nodes: No adenopathy Pleura: No pleural effusion or significant pneumothorax. Musculoskeletal: No acute osseous abnormality. Median sternotomy. Soft tissues: Normal. Upper abdomen: Post cholecystectomy. IMPRESSION: Stable changes of moderate to severe pulmonary fibrosis. Cardiomegaly. Radiation optimization: All CT scans at this facility use at least one of these dose optimization maggie hniques: automated exposure control mA and/or kV adjustment per patient size (includes targeted exam s where dose is matched to clinical indication) or iterative reconstruction.
[2025-01-29] MEDS ORDERED: PROPOFOL 10 MG/ML 20 ML IV ONE (13:13)
--- NOTE | 2025-01-29 13:43 | DVHOP2 ---
Operative Report DATE OF OPERATION: 01/29/25 PROCEDURE: Upper Endoscopy with biopsy. PREOPERATIVE INDICATION: The patient is a 74 -year-old female undergoing endoscopy for anemia and atypical chest pain POSTOPERATIVE DIAGNOSES: 1. 2-3 cm sliding-type hiatal hernia with slightly irregular squamocolumnar junction no significant erosive esophagitis 2. Mild antral gastritis and minimal duodenitis of the duodenal bulb otherwise normal examination up to the 2nd and 3rd part of the duodenal 3. Extrinsic compression of the mid esophagus likely related to aortic arch PROCEDURE PERFORMED BY: Sarahi Quiroga GI NURSE: Marguerite SCOPE: Olympus videoendoscope. ASA CLASS: 3. PREOPERATIVE MEDICATIONS: Mac sedation, Neftali Mora PROCEDURE IN DETAIL: After obtaining an informed consent, the patient was placed on left lateral decubitus position. The patient was then sedated with the above medications. A bite block was placed between her teeth. The endoscope was then passed through the oropharynx, into the esophagus, and through the stomach and pylorus up to the second and third part of the duodenum. The endoscope was then withdrawn. The 2nd and 3rd part of the duodenal were normal and duodenal bulb showed minimal duodenitis. Duodenal biopsies were obtained The pre-pyloric area and antrum showed mild linear antral gastritis. Gastric biopsies were obtained. On retroflexion the fundus cardia and angularis were normal. The endoscope was then withdrawn into distal esophagus Patient had a 2-3 cm sliding-type hiatal hernia with slightly irregular sq uamocolumnar junction but no significant erosive esophagitis The remaining distal and proximal esophagus were unremarkable except for some tertiary contractions and what appears to be extrinsic compression in the mid esophagus from the aortic arch The patient tolerated the procedure well without difficulty. COMPLICATIONS : None SPECIMENS: Duodenal biopsies Gastric biopsies DISPOSITION: Transfer back to the floor Stable PLAN: 1. Await for biopsy result 2. Will place pt on Protonix 40 mg p.o. daily 3. Carafate suspension 1 g p.o. twice a day 4. Full liquid diet advance to soft mechanical diet 5. CT chest showed severe pulmonary fibrosis and cardiomegaly SARAHI QUIROGA MD Jan 29, 2025 13:43
--- NOTE | 2025-01-29 15:09 | DVHPN2 ---
Progress Note Date Seen: Jan 29, 2025 Medical Necessity Reason Pt with a Central, PICC or Fol: No Subjective Patient reports: No new complaints Review of Systems: HEENT:Normal, CVS:Normal, RESPIRATORY:Normal, GI:Normal, :Normal, MSK:Normal, NEURO:Normal Objective vital signs Vital Sign Date Time Temp Pulse Resp B/P (MAP) Pulse Ox O2 Delivery O2 Flow Rate FiO2 01/29/25 12:35 98.1 82 19 128/57 (80) 98 98.1 01/29/25 12:14 Nasal Cannula* 2 28 Total Intake and Output 01/28/25 01/28/25 01/29/25 15:00 23:00 07:00 Intake Total 400 ml 300 ml Output Total 400 ml 300 ml Balance 0 ml 0 ml medications Current Medications Medications Dose Ordered Sig/Romaine Route Start Time Stop Time Status Last Admin Dose Admin Acetaminophen/ Hydrocodone Bitart 1 tab Q4HP PRN PO 01/26/25 15:30 01/28/25 12:21 1 TAB Ondansetron HCl 4 mg Q4HP PRN IV 01/26/25 15:30 01/29/25 06:10 4 MG Enoxaparin Sodium 40 mg DAILY SC 01/27/25 10:00 UNV Acetaminophen 650 mg Q6HP PRN PO 01/26/25 15:30 Nitroglycerin 0.4 mg Q5MINP PRN SL 01/26/25 15:30 01/27/25 08:56 0.4 MG Ascorbic Acid 2,000 mg DAILY PO 01/27/25 10:00 UNV Clopidogrel Bisulfate 75 mg DAILY PO 01/27/25 10:00 01/28/25 09:37 75 MG Furosemide 40 mg DAILY PO 01/27/25 10:00 01/28/25 09:36 40 MG Isosorbide Mononitrate 60 mg DAILY PO 01/27/25 10:00 01/28/25 09:37 60 MG Pantoprazole Sodium 40 mg DAILY PO 01/27/25 10:00 01/28/25 09:37 40 MG Potassium Chloride 10 meq DAILY PO 01/27/25 10:00 01/28/25 09:36 10 MEQ Ranolazine 500 mg BID PO 01/26/25 22:00 01/28/25 21:12 500 MG Atorvastatin Calcium 40 mg HS PO 01/26/25 22:00 01/28/25 21:12 40 MG Carvedilol 25 mg TID PO 01/26/25 22:00 01/28/25 05:59 25 MG Albuterol 2.[address] [facility] 01/26/25 18:00 01/29/25 06:13 2.5 MG Ipratropium [place] 0.[address] [facility] 01/26/25 18:00 01/29/25 06:13 0.5 MG Morphine Sulfate 2 mg Q30M PRN IV 01/27/25 12:30 01/27/25 12:31 2 MG Sucralfate 1 gm BID@0600,2200 PO 01/28/25 22:00 01/28/25 21:12 1 GM Docusate Sodium 100 mg BIDPRN PRN PO 01/28/25 13:15 01/28/25 16:47 100 MG Ketorolac Tromethamine 15 mg Q6HPRN PRN IV 01/28/25 20:30 02/02/25 14:29 01/29/25 12:14 15 MG Examination: GENERAL:Normal, HEENT:Normal, NECK:Normal, LUNGS:Normal, CVS:Normal, ABDOMEN:Normal, MSK:Normal, SKIN:Normal, NEURO:Normal, :Normal laboratory and microbiology Laboratory Tests 01/29/25 04:58 01/28/25 05:52 Test 01/28/25 05:52 Range/Units Serum Glucose 94 74-106 mg/dL Microbiology Date/Time Source Procedure Growth Status 01/27/25 00:05 Nose MRSA Screen - Final Complete Problem List/Assessment/Plan Problem List/Assessment/Plan #1 left chest pain ?pleuritic: toradol #2 anemia: hold eliquis, stool occult, egd today #3 cad s/p cabg s/p pci: per cardiology #4 pvd #5 copd/pulmonary fibrosis #6 htn #7 chronic resp failure #8 h/o cva #9 s/p a flutter: hold eliquis #10 s/p pacer advance care planning- full code- time spent 19 mins Plan discussed with: Patient Date of Service: Jan 29, 2025 Billing Provider: CALE FAGAN MD Common Visit Codes: [id number] INP/OBS CARE(HIGH) CALE FAGAN MD Jan 29, 2025 15:09
[2025-01-29] MEDS: FERROUS SULFATE 325mg EC TAB PO SCH (18:02)
[2025-01-29] MEDS: MONTELUKAST SODIUM 10 MG TAB PO SCH (22:06)
[2025-01-30] VITALS (16 sets, daily range): BP systolic 92–112; BP diastolic 51–68; PULSE 89–123; RESP 16–22; TEMP 97.8–98.3; O2SAT 95–100
--- NOTE | 2025-01-30 06:47 | DVHPN2 ---
Progress Note - Dictate Date Seen: Jan 30, 2025 Medical Necessity Reason Pt with a Central, PICC or Fol: No vital signs Vital Sign Date Time Temp Pulse Resp B/P (MAP) Pulse Ox O2 Delivery O2 Flow Rate FiO2 01/30/25 06:36 121 16 100 01/30/25 06:30 Nasal Cannula* 3 32 01/30/25 06:30 95/58 01/30/25 04:39 98.3 98.3 Total Intake and Output 01/29/25 01/29/25 01/30/25 15:00 23:00 07:00 Intake Total 100 ml 260 ml 550 ml Balance 100 ml 260 ml 550 ml medications Current Medications Medications Dose Ordered Sig/Romaine Route Start Time Stop Time Status Last Admin Dose Admin Acetaminophen/ Hydrocodone Bitart 1 tab Q4HP PRN PO 01/26/25 15:30 01/29/25 17:57 1 TAB Ondansetron HCl 4 mg Q4HP PRN IV 01/26/25 15:30 01/29/25 06:10 4 MG Enoxaparin Sodium 40 mg DAILY SC 01/27/25 10:00 UNV Acetaminophen 650 mg Q6HP PRN PO 01/26/25 15:30 Nitroglycerin 0.4 mg Q5MINP PRN SL 01/26/25 15:30 01/27/25 08:56 0.4 MG Ascorbic Acid 2,000 mg DAILY PO 01/27/25 10:00 UNV Clopidogrel Bisulfate 75 mg DAILY PO 01/27/25 10:00 01/29/25 17:57 75 MG Furosemide 40 mg DAILY PO 01/27/25 10:00 01/28/25 09:36 40 MG Isosorbide Mononitrate 60 mg DAILY PO 01/27/25 10:00 01/29/25 17:56 60 MG Pantoprazole Sodium 40 mg DAILY PO 01/27/25 10:00 01/29/25 17:56 40 MG Potassium Chloride 10 meq DAILY PO 01/27/25 10:00 01/28/25 09:36 10 MEQ Ranolazine 500 mg BID PO 01/26/25 22:00 01/29/25 22:06 500 MG Atorvastatin Calcium 40 mg HS PO 01/26/25 22:00 01/29/25 22:06 40 MG Carvedilol 25 mg TID PO 01/26/25 22:00 01/30/25 05:20 25 MG Albuterol 2.5 mg Q6HWA NEB 01/26/25 18:00 01/30/25 06:30 2.5 MG Ipratropium [place] 0.5 mg Q6HWA NEB 01/26/25 18:00 01/30/25 06:30 0.5 MG Morphine Sulfate 2 mg Q30M PRN IV 01/27/25 12:30 01/27/25 12:31 2 MG Sucralfate 1 gm BID@0600,2200 PO 01/28/25 22:00 01/30/25 05:14 1 GM Docusate Sodium 100 mg BIDPRN PRN PO 01/28/25 13:15 01/28/25 16:47 100 MG Ketorolac Tromethamine 15 mg Q6HPRN PRN IV 01/28/25 20:30 02/02/25 14:29 01/29/25 12:14 15 MG Ferrous Sulfate 325 mg BIDWM PO 01/29/25 18:00 01/29/25 18:02 325 MG Montelukast Sodium 10 mg HS PO 01/29/25 22:00 01/29/25 22:06 10 MG laboratory and microbiology Laboratory Tests 01/29/25 04:58 01/28/25 05:52 Test 01/28/25 05:52 Range/Units Serum Glucose 94 74-106 mg/dL Assessment/Plan Complains of pleuretic chest pains. Had EGD and found to have Hiatal Hernia 74-year-old female presented with chest discomfort/productive cough/nasal congestion and abdominal pain. Chest pains have been pleuritic type. Cardiology was involved for cardiac aspects of care. Does have baseline history of coronary artery disease and status post bypass surgery. Is known to have abnormal nuclear stress test and the patient had previously decided to manage it medically. Patient had right and left heart catheterization and BRAD earlier this month. Since admission, serial troponin has been negative. Lying comfortably flat in bed. No JVD. pink mucosa. Lungs reveal scattered rhonchi. Cardiac: Regular, no thrills/murmur. Abdomen is soft. No hepatomegaly. Bowel sounds positive. Lower extremities do not reveal edema. Dorsalis pedis is 2+ bilateral Past medical history includes diabetes mellitus, hyperlipidemia, hypertension, diastolic heart failure, peripheral artery disease, GERD, anxiety, anemia, asthma, coronary artery disease, status post CABG and PCI, status post pacemaker implantation ([employer]), status post old CVA, paroxysmal atrial flutter (on Eliquis), COPD on home oxygen, fibromyalgia, pulmonary hypertension, history of poor functional status, history of GI bleeding, pulmonary fibrosis, hiatal hernia, ex-smoker, status post gold cholecystectomy/hysterectomy. Is known to have closed grafts for CABG. Has had high risk PCI/left main in [facility] (few years back). Does have history of abnormal nuclear stress test and the plan has been to manage her medically. Has been kept on Eliquis and Plavix as outpatient. She is ex-smoker. Left heart catheterization revealed multivessel coronary artery disease. SVG nourishing 1 of the ramus intermedius was diseased but the decision was to manage it medically (ramus intermedius had good flow from patent left main (left main was stented before). Has been offered to go for Watchman device as outpatient. Echocardiogram of January 09, 2023 revealed LVEF of 55 to 60%, mild concentric left ventricular hypertrophy, no wall motion abnormality, mild biatrial enlargement, pacing wire in right-sided chambers, mild to moderate aortic insufficiency, mild mitral regurgitation, mild to moderate tricuspid regurgitation and right ventricular systolic pressure of 35 mmHg Echocardiogram of March 07, 2023 had revealed ejection fraction of 55 to 60%, mild concentric left ventricular hypertrophy, mild AI/MR/PI, mild biatrial enlargement, pacemaker wire in the right-sided chambers and right ventricular systolic pressure of 34 mmHg Echocardiogram of September 06, 2023 revealed ejection fraction of 55% and pacemaker in right-sided chambers Echocardiogram of December 26, 2023 had reported ejection fraction of 55-60%, no wall motion abnormality, [id number] aortic insufficiency, mild MR, moderate TR and right ventricular systolic pressure 42 mm Hg Echocardiogram of August 30, 2024 reported ejection fraction of 55-60%, no wall motion abnormality, mild biatrial enlargement, pacemaker in the right-sided chambers, mild AI/MR and moderate tricuspid regurgitation. Right ventricular systolic pressure was assessed at 41 mm Hg. Echocardiogram of December 20, 2024 (performed in the office) revealed ejection fraction of 60-65%, mild concentric left ventricular hypertrophy, pseudo normal LV filling, mild biatrial enlargement, mild right ventricular enlargement with good systolic function, moderate aortic insufficiency, aortic sclerosis with no stenosis, mild mitral annular calcification, [id number] MR/TR and right ventricular systolic pressure of 53 mm Hg. Echocardiogram of January 10, 2025 revealed mild concentric left ventricular hypertrophy, ejection fraction of 60-65%, pseudo normal LV filling, [id number] aortic insufficiency, mild mitral regurgitation, moderate tricuspid regurgitation and right ventricular systolic pressure of 67 mm Hg. BRAD of January 13, 2025 revealed no significant valvular disease Right and left heart catheterization of January 13, 2025 revealed multivessel coronary artery disease LVEF of around 50%; Apical aneurysm; Increased LVEDP (19 mm Hg); No pulmonary hypertension; Patent left main stent into LCX (dominant vessel) with no significant disease; Proximal LAD was FIELD SUPPORT TECHNICIAN with minor parallel collaterals. LAD was a diffusely diseased vessel with areas of focal aneurysm; Presence of 2 ramus intermedius; One of the ramus intermedius is with mild disease; Second ramus: Relatively small vessel with mild disease. There was SVG 'also' nourishing it. SVG itself had ostial and middle SVG section disease (decision was made to manage it medically); DANIELLE was atretic but patent; There was 2 other SVG's which were FIELD SUPPORT TECHNICIAN at ostium and suggestion was for medical therapy WBC: 7.9 - 4.1 - 5.3 - 6.0 Hemoglobin: 8.4 - 7.7 - 8.1 - 8.0 Creatinine: 0.64 - 0.62 - 0.90 Potassium: 3.8 - 3.7 - 3.6 Troponin (high sensitive): 4 - 3 Chest x-ray revealed: 1. Improvement in left lung base consolidation since prior. This could be improvement in atelectasis or pneumonia. 2. Mild cardiomegaly. Prior median sternotomy and CABG. 3. Diffuse reticular and interstitial opacities of the lungs likely related to known fibrosis. CT of chest revealed: IMPRESSION: Stable changes of moderate to severe pulmonary fibrosis. Cardiomegaly. EKG revealed sinus rhythm with nonspecific ST-T changes Telemetry reveals sinus rhythm and occasions of paced rhythm. Patient is a 74-year-old female who presented with atypical chest discomfort/productive cough/nasal congestion/abdominal pain for few days. Chest pain has been pleuritic. Acute coronary syndrome is not considered. Serial high sensitive troponin has been negative. It is of note that the patient had right and left heart catheterization earlier this month and the result pointed toward medical management. s/p EGD: Hiatal Hernia Chest discomfort, atypical Pleuritic chest pain COPD exacerbation Coronary artery disease, status post CABG/PCI Paroxysmal atrial flutter, history of (on Eliquis as outpatient) COPD/Emphysema Pulmonary fibrosis Pulmonary hypertension, history of Chronic diastolic heart failure Status post pacemaker Hypokalemia Paroxysmal atrial flutter with RVR Hiatal Hernia Cardiac suggestions for management: Manage on telemetry Follow-up electrolytes and kidney function and correct abnormalities, keep potassium above 4 magnesium above 2 Optimized medical therapy intermodal customer service continuation of full anticoagulation for history of paroxysmal atrial flutter is suggested (patient on Eliquis as outpatient). Primary team held Eliquis for anemia at this point intermodal customer service continuation of Plavix (CAD h/o Left Main stenting) is suggested. You can hold it for possible endoscopy for now. Antianginal therapy Continuation of Statin/Ranexa/Imdur/Coreg is suggested To add Colchicine Further evaluation and management depends on the above and clinical course A total of 55 minutes was spent reviewing the patient record, examining the patient, making a diagnostic and therapeutic plan, discussing this plan with medical personnel, following up on diagnostic studies and following the patient for clinical stability excluding any and all procedures. At least 50% of this time was spent in direct, [id number] contact. Thank you for allowing me to participate in this patient's care. Further recommendations will depend on patient's clinical course. Please do not hesitate to contact me if you have any questions or concerns. This medical document was created using electronic medical record system with [employer] computerized dictation system. Although this document has been carefully reviewed, there may still be some phonetic and typographical errors. These areas are purely typographical due to the imperfection of the software programs, and do not reflect any compromise in the patient's medical care. Plan discussed with: Patient, Other (nurse) AJAY SMALLWOOD MD Jan 30, 2025 06:47
[2025-01-30] MEDS ORDERED: AMIODARONE 360mg/200mL PREMIX 200 ML IV ONE (10:00)
--- NOTE | 2025-01-30 10:09 | DVHPN2 ---
Progress Note - Dictate Date Seen: Jan 30, 2025 Medical Necessity Reason Pt with a Central, PICC or Fol: No Subjective No new complaints Tolerating soft mechanical diet EGD findings Operative Report DATE OF OPERATION: 01/29/25 PROCEDURE: Upper Endoscopy with biopsy. PREOPERATIVE INDICATION: The patient is a 74 -year-old female undergoing endoscopy for anemia and atypical chest pain POSTOPERATIVE DIAGNOSES: 1. 2-3 cm sliding-type hiatal hernia with slightly irregular squamocolumnar junction no significant erosive esophagitis 2. Mild antral gastritis and minimal duodenitis of the duodenal bulb otherwise normal examination up to the 2nd and 3rd part of the duodenal 3. Extrinsic compression of the mid esophagus likely related to aortic arch vital signs Vital Sign Date Time Temp Pulse Resp B/P (MAP) Pulse Ox O2 Delivery O2 Flow Rate FiO2 01/30/25 08:34 98.1 122 18 93/51 (65) 100 98.1 01/30/25 06:30 Nasal Cannula* 3 32 Total Intake and Output 01/29/25 01/29/25 01/30/25 15:00 23:00 07:00 Intake Total 100 ml 260 ml 550 ml Balance 100 ml 260 ml 550 ml medications Current Medications Medications Dose Ordered Sig/Romaine Route Start Time Stop Time Status Last Admin Dose Admin Acetaminophen/ Hydrocodone Bitart 1 tab Q4HP PRN PO 01/26/25 15:30 01/29/25 17:57 1 TAB Ondansetron HCl 4 mg Q4HP PRN IV 01/26/25 15:30 01/29/25 06:10 4 MG Enoxaparin Sodium 40 mg DAILY SC 01/27/25 10:00 UNV Acetaminophen 650 mg Q6HP PRN PO 01/26/25 15:30 Nitroglycerin 0.4 mg Q5MINP PRN SL 01/26/25 15:30 01/27/25 08:56 0.4 MG Ascorbic Acid 2,000 mg DAILY PO 01/27/25 10:00 UNV Clopidogrel Bisulfate 75 mg DAILY PO 01/27/25 10:00 01/29/25 17:57 75 MG Furosemide 40 mg DAILY PO 01/27/25 10:00 01/28/25 09:36 40 MG Isosorbide Mononitrate 60 mg DAILY PO 01/27/25 10:00 01/29/25 17:56 60 MG Pantoprazole Sodium 40 mg DAILY PO 01/27/25 10:00 01/29/25 17:56 40 MG Potassium Chloride 10 meq DAILY PO 01/27/25 10:00 01/28/25 09:36 10 MEQ Ranolazine 500 mg BID PO 01/26/25 22:00 01/29/25 22:06 500 MG Atorvastatin Calcium 40 mg HS PO 01/26/25 22:00 01/29/25 22:06 40 MG Carvedilol 25 mg TID PO 01/26/25 22:00 01/30/25 05:20 25 MG Albuterol 2.5 mg Q6HWA NEB 01/26/25 18:00 01/30/25 06:30 2.5 MG Ipratropium [place] 0.5 mg Q6HWA NEB 01/26/25 18:00 01/30/25 06:30 0.5 MG Morphine Sulfate 2 mg Q30M PRN IV 01/27/25 12:30 01/27/25 12:31 2 MG Sucralfate 1 gm BID@0600,2200 PO 01/28/25 22:00 01/30/25 05:14 1 GM Docusate Sodium 100 mg BIDPRN PRN PO 01/28/25 13:15 01/28/25 16:47 100 MG Ketorolac Tromethamine 15 mg Q6HPRN PRN IV 01/28/25 20:30 02/02/25 14:29 01/29/25 12:14 15 MG Ferrous Sulfate 325 mg BIDWM PO 01/29/25 18:00 01/29/25 18:02 325 MG Montelukast Sodium 10 mg HS PO 01/29/25 22:00 01/29/25 22:06 10 MG Colchicine 0.6 mg DAILY PO 01/30/25 10:00 objective General: NAD, AAOX3 Chest: lung barton clear to auscultation Heart: RRR, no murmur Abdomen: non-distended, no tenderness to palpation, +BS laboratory and microbiology Laboratory Tests 01/29/25 04:58 01/28/25 05:52 Test 01/28/25 05:52 Range/Units Serum Glucose 94 74-106 mg/dL Problems(with codes): (1) Symptomatic anemia (2) Generalized weakness (3) Pulmonary fibrosis Prognosis Plan Advance diet as tolerated Protonix 40 mg p.o. twice a day Carafate 1 g p.o. twice a day Patient will be resumed on anticoagulant today as per Cardiology recommendations I will follow up patient with you as needed and monitor labs Plan discussed with: Other (Nurse) SARAHI BARROS MD Jan 30, 2025 10:09
[2025-01-30] MEDS: COLCHICINE 0.6 MG CAP PO SCH (10:11)
[2025-01-30] MEDS: AMIODARONE 360mg/200mL PREMIX 200 ML IV SCH (11:24)
--- NOTE | 2025-01-30 12:27 | DVHPN2 ---
Progress Note Date Seen: Jan 30, 2025 Medical Necessity Reason Pt with a Central, PICC or Fol: No Subjective Patient reports: No new complaints Review of Systems: HEENT:Normal, CVS:Normal, RESPIRATORY:Normal, GI:Normal, :Normal, MSK:Normal, NEURO:Normal Objective vital signs Vital Sign Date Time Temp Pulse Resp B/P (MAP) Pulse Ox O2 Delivery O2 Flow Rate FiO2 01/30/25 11:44 118 18 100 01/30/25 11:38 Nasal Cannula 3.0 01/30/25 11:38 32 01/30/25 08:34 98.1 93/51 (65) 98.1 Total Intake and Output 01/29/25 01/29/25 01/30/25 15:00 23:00 07:00 Intake Total 100 ml 260 ml 550 ml Balance 100 ml 260 ml 550 ml medications Current Medications Medications Dose Ordered Sig/Romaine Route Start Time Stop Time Status Last Admin Dose Admin Acetaminophen/ Hydrocodone Bitart 1 tab Q4HP PRN PO 01/26/25 15:30 01/29/25 17:57 1 TAB Ondansetron HCl 4 mg Q4HP PRN IV 01/26/25 15:30 01/29/25 06:10 4 MG Enoxaparin Sodium 40 mg DAILY SC 01/27/25 10:00 UNV Acetaminophen 650 mg Q6HP PRN PO 01/26/25 15:30 Nitroglycerin 0.4 mg Q5MINP PRN SL 01/26/25 15:30 01/27/25 08:56 0.4 MG Ascorbic Acid 2,000 mg DAILY PO 01/27/25 10:00 UNV Clopidogrel Bisulfate 75 mg DAILY PO 01/27/25 10:00 01/30/25 10:12 75 MG Furosemide 40 mg DAILY PO 01/27/25 10:00 01/28/25 09:36 40 MG Isosorbide Mononitrate 60 mg DAILY PO 01/27/25 10:00 01/29/25 17:56 60 MG Pantoprazole Sodium 40 mg DAILY PO 01/27/25 10:00 01/30/25 10:13 40 MG Potassium Chloride 10 meq DAILY PO 01/27/25 10:00 01/28/25 09:36 10 MEQ Ranolazine 500 mg BID PO 01/26/25 22:00 01/30/25 10:13 500 MG Atorvastatin Calcium 40 mg HS PO 01/26/25 22:00 01/29/25 22:06 40 MG Carvedilol 25 mg TID PO 01/26/25 22:00 01/30/25 05:20 25 MG Albuterol 2.5 mg Q6HWA NEB 01/26/25 18:00 01/30/25 11:38 2.5 MG Ipratropium [place] 0.5 mg Q6HWA NEB 01/26/25 18:00 01/30/25 11:38 0.5 MG Morphine Sulfate 2 mg Q30M PRN IV 01/27/25 12:30 01/27/25 12:31 2 MG Sucralfate 1 gm BID@0600,2200 PO 01/28/25 22:00 01/30/25 05:14 1 GM Docusate Sodium 100 mg BIDPRN PRN PO 01/28/25 13:15 01/28/25 16:47 100 MG Ketorolac Tromethamine 15 mg Q6HPRN PRN IV 01/28/25 20:30 02/02/25 14:29 01/29/25 12:14 15 MG Ferrous Sulfate 325 mg BIDWM PO 01/29/25 18:00 01/30/25 10:10 325 MG Montelukast Sodium 10 mg HS PO 01/29/25 22:00 01/29/25 22:06 10 MG Colchicine 0.6 mg DAILY PO 01/30/25 10:00 01/30/25 10:11 0.6 MG Examination: GENERAL:Normal, HEENT:Normal, NECK:Normal, LUNGS:Normal, CVS:Normal, CVS:Abnormal (T), ABDOMEN:Normal (A FIB with rvr), MSK:Normal, SKIN:Normal, NEURO:Normal, :Normal laboratory and microbiology Laboratory Tests 01/29/25 04:58 01/28/25 05:52 Test 01/28/25 05:52 Range/Units Serum Glucose 94 74-106 mg/dL Microbiology Date/Time Source Procedure Growth Status 01/27/25 00:05 Nose MRSA Screen - Final Complete Problem List/Assessment/Plan Problem List/Assessment/Plan #1 left chest pain ?pleuritic: toradol #2 anemia: s/p egd #3 cad s/p cabg s/p pci: per cardiology #4 pvd #5 copd/pulmonary fibrosis #6 htn #7 chronic resp failure #8 h/o cva #9 s/p a flutter/ rvr: on amiodarone, eliquis #10 s/p pacer advance care planning- full code- time spent 19 mins Plan discussed with: Patient My Orders My Orders Orders - CALE FAGAN MD Procedure Category Date Status Time Ferrous Sulfate Tablet PHA 01/29/25 In Process 18:00 Montelukast Tablet PHA 01/29/25 In Process (Singulair Tablet) 22:00 * Barrel Lathe Operator Outside CONS 01/29/25 Transmitted Consult Date of Service: Jan 30, 2025 Billing Provider: CALE FAGAN MD Common Visit Codes: [id number] INP/OBS CARE(HIGH) CALE FAGAN MD Jan 30, 2025 12:27
[2025-01-30] MEDS: MAGNESIUM OXIDE 400 MG TAB PO ONE (14:36)
[2025-01-30] MEDS: APIXABAN 2.5 MG TAB PO SCH (22:16)
[2025-01-31] VITALS (15 sets, daily range): BP systolic 103–134; BP diastolic 54–88; PULSE 89–110; RESP 16–20; TEMP 97.3–98.7; O2SAT 95–100
[2025-01-31] MEDS: AMIODARONE 360mg/200mL PREMIX 200 ML IV SCH ×2 (00:08→12:15)
[2025-01-31 06:51] LABS: Hematocrit 26.8 % (36.0-46.0); Hemoglobin 8.9 g/dL (12.2-16.2); Mean Corpuscular Hemoglobin 30.2 pg (28.0-32.0); Mean Corpuscular Volume 90.8 fL (80.0-100.0); Nucleated Red Blood Cells % 0.1 %
[2025-01-31 07:20] LABS: Albumin 4.0 g/dL (3.2-4.8); Alkaline Phosphatase 71 U/L (46-116); Anion Gap 8 (5-15); BUN/Creatinine Ratio 16.0 (10.0-20.0); Blood Urea Nitrogen 13 mg/dL (9-23); Calcium 9.5 mg/dL (8.7-10.4); Carbon Dioxide 29 mmol/L (20-31); Chloride 101 mmol/L (98-107); Glucose 106 mg/dL (74-106); Magnesium 1.8 mg/dL (1.6-2.6); Potassium 3.8 mmol/L (3.5-5.1); Sodium 138 mmol/L (136-145); Total Protein 5.8 g/dL (5.7-8.2)
[2025-01-31 07:28] LABS: Alanine Aminotransferase < 9 U/L (7-40); Bilirubin, Total 0.2 mg/dL (0.2-1.0)
--- NOTE | 2025-01-31 08:03 | DVHPN2 ---
Progress Note - Dictate Date Seen: Jan 31, 2025 Medical Necessity Reason Pt with a Central, PICC or Fol: No vital signs Vital Sign Date Time Temp Pulse Resp B/P (MAP) Pulse Ox O2 Delivery O2 Flow Rate FiO2 01/31/25 06:31 102 122/67 01/31/25 06:31 18 100 01/31/25 06:23 Nasal Cannula* 3 32 01/31/25 05:00 97.8 97.8 Total Intake and Output 01/30/25 01/30/25 01/31/25 15:00 23:00 07:00 Intake Total 1060 ml 450 ml Balance 1060 ml 450 ml medications Current Medications Medications Dose Ordered Sig/Romaine Route Start Time Stop Time Status Last Admin Dose Admin Acetaminophen/ Hydrocodone Bitart 1 tab Q4HP PRN PO 01/26/25 15:30 01/29/25 17:57 1 TAB Ondansetron HCl 4 mg Q4HP PRN IV 01/26/25 15:30 01/30/25 22:15 4 MG Enoxaparin Sodium 40 mg DAILY SC 01/27/25 10:00 UNV Acetaminophen 650 mg Q6HP PRN PO 01/26/25 15:30 Nitroglycerin 0.4 mg Q5MINP PRN SL 01/26/25 15:30 01/27/25 08:56 0.4 MG Ascorbic Acid 2,000 mg DAILY PO 01/27/25 10:00 UNV Clopidogrel Bisulfate 75 mg DAILY PO 01/27/25 10:00 01/30/25 10:12 75 MG Furosemide 40 mg DAILY PO 01/27/25 10:00 01/28/25 09:36 40 MG Isosorbide Mononitrate 60 mg DAILY PO 01/27/25 10:00 01/29/25 17:56 60 MG Pantoprazole Sodium 40 mg DAILY PO 01/27/25 10:00 01/30/25 10:13 40 MG Potassium Chloride 10 meq DAILY PO 01/27/25 10:00 01/28/25 09:36 10 MEQ Ranolazine 500 mg BID PO 01/26/25 22:00 01/31/25 00:14 500 MG Atorvastatin Calcium 40 mg HS PO 01/26/25 22:00 01/30/25 22:16 40 MG Carvedilol 25 mg TID PO 01/26/25 22:00 01/31/25 06:31 25 MG Albuterol 2.5 mg Q6HWA NEB 01/26/25 18:00 01/31/25 06:23 2.5 MG Ipratropium [place] 0.5 mg Q6HWA NEB 01/26/25 18:00 01/31/25 06:23 0.5 MG Morphine Sulfate 2 mg Q30M PRN IV 01/27/25 12:30 01/27/25 12:31 2 MG Sucralfate 1 gm BID@0600,2200 PO 01/28/25 22:00 01/31/25 06:31 1 GM Docusate Sodium 100 mg BIDPRN PRN PO 01/28/25 13:15 01/30/25 22:15 100 MG Ketorolac Tromethamine 15 mg Q6HPRN PRN IV 01/28/25 20:30 02/02/25 14:29 01/31/25 06:40 15 MG Ferrous Sulfate 325 mg BIDWM PO 01/29/25 18:00 01/30/25 18:25 325 MG Montelukast Sodium 10 mg HS PO 01/29/25 22:00 01/30/25 22:15 10 MG Colchicine 0.6 mg DAILY PO 01/30/25 10:00 01/30/25 10:11 0.6 MG Apixaban 2.5 mg BID PO 01/30/25 22:00 01/30/25 22:16 2.5 MG Magnesium Oxide 400 mg DAILY PO 01/31/25 10:00 laboratory and microbiology Laboratory Tests 01/31/25 06:33 Test 01/31/25 06:33 Range/Units Serum Glucose 106 74-106 mg/dL Assessment/Plan Complains of pleuretic chest pains. Had EGD and found to have Hiatal Hernia 74-year-old female presented with chest discomfort/productive cough/nasal congestion and abdominal pain. Chest pains have been pleuritic type. Cardiology was involved for cardiac aspects of care. Does have baseline history of coronary artery disease and status post bypass surgery. Is known to have abnormal nuclear stress test and the patient had previously decided to manage it medically. Patient had right and left heart catheterization and BRAD earlier this month. Since admission, serial troponin has been negative. Lying comfortably flat in bed. No JVD. pink mucosa. Lungs reveal scattered rhonchi. Cardiac: Regular, no thrills/murmur. Abdomen is soft. No hepatomegaly. Bowel sounds positive. Lower extremities do not reveal edema. Dorsalis pedis is 2+ bilateral Past medical history includes diabetes mellitus, hyperlipidemia, hypertension, diastolic heart failure, peripheral artery disease, GERD, anxiety, anemia, asthma, coronary artery disease, status post CABG and PCI, status post pacemaker implantation ([employer]), status post old CVA, paroxysmal atrial flutter (on Eliquis), COPD on home oxygen, fibromyalgia, pulmonary hypertension, history of poor functional status, history of GI bleeding, pulmonary fibrosis, hiatal hernia, ex-smoker, status post gold cholecystectomy/hysterectomy. Is known to have closed grafts for CABG. Has had high risk PCI/left main in [facility] (few years back). Does have history of abnormal nuclear stress test and the plan has been to manage her medically. Has been kept on Eliquis and Plavix as outpatient. She is ex-smoker. Left heart catheterization revealed multivessel coronary artery disease. SVG nourishing 1 of the ramus intermedius was diseased but the decision was to manage it medically (ramus intermedius had good flow from patent left main (left main was stented before). Has been offered to go for Watchman device as outpatient. Echocardiogram of January 09, 2023 revealed LVEF of 55 to 60%, mild concentric left ventricular hypertrophy, no wall motion abnormality, mild biatrial enlargement, pacing wire in right-sided chambers, mild to moderate aortic insufficiency, mild mitral regurgitation, mild to moderate tricuspid regurgitation and right ventricular systolic pressure of 35 mmHg Echocardiogram of March 07, 2023 had revealed ejection fraction of 55 to 60%, mild concentric left ventricular hypertrophy, mild AI/MR/PI, mild biatrial enlargement, pacemaker wire in the right-sided chambers and right ventricular systolic pressure of 34 mmHg Echocardiogram of September 06, 2023 revealed ejection fraction of 55% and pacemaker in right-sided chambers Echocardiogram of December 26, 2023 had reported ejection fraction of 55-60%, no wall motion abnormality, [id number] aortic insufficiency, mild MR, moderate TR and right ventricular systolic pressure 42 mm Hg Echocardiogram of August 30, 2024 reported ejection fraction of 55-60%, no wall motion abnormality, mild biatrial enlargement, pacemaker in the right-sided chambers, mild AI/MR and moderate tricuspid regurgitation. Right ventricular systolic pressure was assessed at 41 mm Hg. Echocardiogram of December 20, 2024 (performed in the office) revealed ejection fraction of 60-65%, mild concentric left ventricular hypertrophy, pseudo normal LV filling, mild biatrial enlargement, mild right ventricular enlargement with good systolic function, moderate aortic insufficiency, aortic sclerosis with no stenosis, mild mitral annular calcification, [id number] MR/TR and right ventricular systolic pressure of 53 mm Hg. Echocardiogram of January 10, 2025 revealed mild concentric left ventricular hypertrophy, ejection fraction of 60-65%, pseudo normal LV filling, [id number] aortic insufficiency, mild mitral regurgitation, moderate tricuspid regurgitation and right ventricular systolic pressure of 67 mm Hg. BRAD of January 13, 2025 revealed no significant valvular disease Right and left heart catheterization of January 13, 2025 revealed multivessel coronary artery disease LVEF of around 50%; Apical aneurysm; Increased LVEDP (19 mm Hg); No pulmonary hypertension; Patent left main stent into LCX (dominant vessel) with no significant disease; Proximal LAD was SCIENTIST PROPAGATOR with minor parallel collaterals. LAD was a diffusely diseased vessel with areas of focal aneurysm; Presence of 2 ramus intermedius; One of the ramus intermedius is with mild disease; Second ramus: Relatively small vessel with mild disease. There was SVG 'also' nourishing it. SVG itself had ostial and middle SVG section disease (decision was made to manage it medically); DNAIELLE was atretic but patent; There was 2 other SVG's which were SCIENTIST PROPAGATOR at ostium and suggestion was for medical therapy WBC: 7.9 - 4.1 - 5.3 - 6.0 - 5.9 Hemoglobin: 8.4 - 7.7 - 8.1 - 8.0 - 8.9 Creatinine: 0.64 - 0.62 - 0.90 - 0.81 Potassium: 3.8 - 3.7 - 3.6 - 3.8 Troponin (high sensitive): 4 - 3 Chest x-ray revealed: 1. Improvement in left lung base consolidation since prior. This could be improvement in atelectasis or pneumonia. 2. Mild cardiomegaly. Prior median sternotomy and CABG. 3. Diffuse reticular and interstitial opacities of the lungs likely related to known fibrosis. CT of chest revealed: IMPRESSION: Stable changes of moderate to severe pulmonary fibrosis. Cardiomegaly. EKG revealed sinus rhythm with nonspecific ST-T changes. Later revealed atrial flutter with block Telemetry reveals sinus rhythm and occasions of paced rhythm. Later revealed Atrial flutter with variable block. Patient is a 74-year-old female who presented with atypical chest discomfort/productive cough/nasal congestion/abdominal pain for few days. Chest pain has been pleuritic. Acute coronary syndrome is not considered. Serial high sensitive troponin has been negative. It is of note that the patient had right and left heart catheterization earlier this month and the result pointed toward medical management. s/p EGD: Hiatal Hernia. Found to have Atrial flutter with variable block and started on Amio drip. Atypical chest pain, rule out component of Pericarditis. Will empirically start Colchicine. 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 Antianginal therapy Continuation of Statin/Ranexa/Imdur/Coreg is suggested On Colchicine Further evaluation and management depends on the above and clinical course A total of 55 minutes was spent reviewing the patient record, examining the patient, making a diagnostic and therapeutic plan, discussing this plan with medical personnel, following up on diagnostic studies and following the patient for clinical stability excluding any and all procedures. At least 50% of this time was spent in direct, [id number] contact. Thank you for allowing me to participate in this patient's care. Further recommendations will depend on patient's clinical course. Please do not hesitate to contact me if you have any questions or concerns. This medical document was created using electronic medical record system with [employer] dictation system. Although this document has been carefully reviewed, there may still be some phonetic and typographical errors. These areas are purely typographical due to the imperfection of the software programs, and do not reflect any compromise in the patient's medical care. Plan discussed with: Patient, Other (nurse) AJAY SMALLWOOD MD Jan 31, 2025 08:03
--- NOTE | 2025-01-31 08:17 | ECG ---
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
[2025-01-31] MEDS: HYALURONIDASE 150 UNIT/1 ML SUBCUT ONE (08:30)
--- NOTE | 2025-01-31 09:55 | ECG ---
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
[2025-01-31] MEDS: MAGNESIUM OXIDE 400 MG TAB PO SCH (10:15)
[2025-01-31] MEDS ORDERED: AMIODARONE 360mg/200mL PREMIX 200 ML IV SCH (11:30)
--- NOTE | 2025-01-31 12:21 | DVH ---
EXAM: XY CHEST PORTABLE Indication: PICC LINE PLACEMENT. Technique: Single frontal view of the chest was obtained Comparison: XY CHEST PORTABLE on DOS: 01/26/25, XY CHEST PORTABLE on DOS: 01/11/25, XY CHEST PORTABLE on DOS: 01/09/25, XY CHEST PORTABLE on DOS: 08/28/24, XY CHEST PORTABLE on DOS: 08/02/24 FINDINGS: Lines and Tubes: Cardiac pacemaker projects over left chest wall. Right PICC tip projects over the ca voatrial junction. Lungs: Diffuse interstitial opacities. Pleura: Trace bilateral pleural effusions No pneumothorax. Cardiomediastinal contours: Cardiomegaly. Bones: No acute osseous abnormality. IMPRESSION: Interval placement of right PICC with tip in appropriate position.
[2025-01-31] MEDS: LIDOCAINE 1% (LOCAL ANESTH.) PF 5ml SDV ID ONE (12:30)
--- NOTE | 2025-01-31 19:42 | DVHPN2 ---
Progress Note - Dictate Date Seen: Jan 31, 2025 Medical Necessity Reason Pt with a Central, PICC or Fol: No Subjective Patient developed AFib with RVR She has been started on IV amiodarone drip and will be change to oral soon Otherwise no new complaints Tolerating soft mechanical diet EGD findings Operative Report DATE OF OPERATION: 01/29/25 PROCEDURE: Upper Endoscopy with biopsy. PREOPERATIVE INDICATION: The patient is a 74 -year-old female undergoing endoscopy for anemia and atypical chest pain POSTOPERATIVE DIAGNOSES: 1. 2-3 cm sliding-type hiatal hernia with slightly irregular squamocolumnar junction no significant erosive esophagitis 2. Mild antral gastritis and minimal duodenitis of the duodenal bulb otherwise normal examination up to the 2nd and 3rd part of the duodenal 3. Extrinsic compression of the mid esophagus likely related to aortic arch vital signs Vital Sign Date Time Temp Pulse Resp B/P (MAP) Pulse Ox O2 Delivery O2 Flow Rate FiO2 01/31/25 18:54 105 20 100 01/31/25 18:48 Nasal Cannula 3.0 01/31/25 18:48 32 01/31/25 17:00 98.0 134/68 (90) 98.0 Total Intake and Output 01/30/25 01/30/25 01/31/25 15:00 23:00 07:00 Intake Total 1060 ml 450 ml Balance 1060 ml 450 ml medications Current Medications Medications Dose Ordered Sig/Romaine Route Start Time Stop Time Status Last Admin Dose Admin Acetaminophen/ Hydrocodone Bitart 1 tab Q4HP PRN PO 01/26/25 15:30 01/29/25 17:57 1 TAB Ondansetron HCl 4 mg Q4HP PRN IV 01/26/25 15:30 01/30/25 22:15 4 MG Enoxaparin Sodium 40 mg DAILY SC 01/27/25 10:00 UNV Acetaminophen 650 mg Q6HP PRN PO 01/26/25 15:30 Nitroglycerin 0.4 mg Q5MINP PRN SL 01/26/25 15:30 01/27/25 08:56 0.4 MG Ascorbic Acid 2,000 mg DAILY PO 01/27/25 10:00 UNV Clopidogrel Bisulfate 75 mg DAILY PO 01/27/25 10:00 01/31/25 10:15 75 MG Furosemide 40 mg DAILY PO 01/27/25 10:00 01/31/25 10:15 40 MG Isosorbide Mononitrate 60 mg DAILY PO 01/27/25 10:00 01/29/25 17:56 60 MG Pantoprazole Sodium 40 mg DAILY PO 01/27/25 10:00 01/31/25 10:15 40 MG Potassium Chloride 10 meq DAILY PO 01/27/25 10:00 01/28/25 09:36 10 MEQ Ranolazine 500 mg BID PO 01/26/25 22:00 01/31/25 10:15 500 MG Atorvastatin Calcium 40 mg HS PO 01/26/25 22:00 01/30/25 22:16 40 MG Carvedilol 25 mg TID PO 01/26/25 22:00 01/31/25 13:55 25 MG Albuterol 2.5 mg Q6HWA NEB 01/26/25 18:00 01/31/25 18:48 2.5 MG Ipratropium [place] 0.5 mg Q6HWA NEB 01/26/25 18:00 01/31/25 18:48 0.5 MG Morphine Sulfate 2 mg Q30M PRN IV 01/27/25 12:30 01/27/25 12:31 2 MG Sucralfate 1 gm BID@0600,2200 PO 01/28/25 22:00 01/31/25 06:31 1 GM Docusate Sodium 100 mg BIDPRN PRN PO 01/28/25 13:15 01/30/25 22:15 100 MG Ketorolac Tromethamine 15 mg Q6HPRN PRN IV 01/28/25 20:30 02/02/25 14:29 01/31/25 06:40 15 MG Ferrous Sulfate 325 mg BIDWM PO 01/29/25 18:00 01/31/25 17:49 325 MG Montelukast Sodium 10 mg HS PO 01/29/25 22:00 01/30/25 22:15 10 MG Colchicine 0.6 mg DAILY PO 01/30/25 10:00 01/31/25 10:14 0.6 MG Apixaban 2.5 mg BID PO 01/30/25 22:00 01/31/25 10:14 2.5 MG Magnesium Oxide 400 mg DAILY PO 01/31/25 10:00 01/31/25 10:15 400 MG Sodium Chloride 10 ml QSHIFT@ IV 01/31/25 22:00 objective General: NAD, AAOX3 Chest: lung barton clear to auscultation Heart: RRR, no murmur Abdomen: non-distended, no tenderness to palpation, +BS laboratory and microbiology Laboratory Tests 01/31/25 06:33 Test 01/31/25 06:33 Range/Units Serum Glucose 106 74-106 mg/dL Problems(with codes): (1) Symptomatic anemia (2) Generalized weakness (3) COPD with acute exacerbation (4) Pulmonary fibrosis (5) Weakness Prognosis Plan Continue supportive care Continue Protonix 40 mg p.o. daily Carafate 1 g p.o. q.h.s. Lifestyle and dietary modifications for GERD Discharge planning as per hospitalist Outpatient follow up with GI Services after discharge Dietary Evaluation Review Comments: Continue current POC Expected Outcomes/Goals: To meet >75% estimated needs Fu 3-5 days Plan discussed with: Patient SARAHI BARROS MD Jan 31, 2025 19:42
[2025-01-31] MEDS: SODIUM CHLOR 0.9% PF (SALINE LOCK) 10ML VIAL/SYR IV SCH (22:36)
[2025-02-01] VITALS (16 sets, daily range): BP systolic 98–131; BP diastolic 50–76; PULSE 101–112; RESP 16–18; TEMP 97–98.7; O2SAT 94–100
--- NOTE | 2025-02-01 03:56 | ECG ---
[facility] Test Date: 2025-02-01 Test Time: 03:30:03 Pat Name: EUN PAIZ [facility] Scalemaker: : 1950 Requested By: JULIANNA SLOAN Order Number: [id number] Reading MD: Bobby Ramey Measurements Intervals [place] Rate: 109 P: 208 [place]: 191 QRS: -11 QRSD: 93 T: 71 QT: 364 QTc: 491 Interpretive Statements Sinus or ectopic atrial tachycardia Nonspecific repol abnormality, diffuse leads Electronically Signed On 02-01-2025 20:22:37 PDT by Bobby Ramey Please click the below link to view image of tracing.
--- NOTE | 2025-02-01 10:41 | DVHPN2 ---
Progress Note - Dictate Date Seen: Feb 01, 2025 Medical Necessity Reason Pt with a Central, PICC or Fol: No vital signs Vital Sign Date Time Temp Pulse Resp B/P (MAP) Pulse Ox O2 Delivery O2 Flow Rate FiO2 02/01/25 10:30 100/55 02/01/25 10:00 100 Nasal Cannula 2.0 02/01/25 10:00 28 02/01/25 08:32 98.1 108 18 98.1 Total Intake and Output 01/31/25 01/31/25 02/01/25 15:00 23:00 07:00 Intake Total 600 ml 500 ml Balance 600 ml 500 ml medications Current Medications Medications Dose Ordered Sig/Romaine Route Start Time Stop Time Status Last Admin Dose Admin Acetaminophen/ Hydrocodone Bitart 1 tab Q4HP PRN PO 01/26/25 15:30 01/29/25 17:57 1 TAB Ondansetron HCl 4 mg Q4HP PRN IV 01/26/25 15:30 01/31/25 22:38 4 MG Enoxaparin Sodium 40 mg DAILY SC 01/27/25 10:00 UNV Acetaminophen 650 mg Q6HP PRN PO 01/26/25 15:30 Nitroglycerin 0.4 mg Q5MINP PRN SL 01/26/25 15:30 01/27/25 08:56 0.4 MG Ascorbic Acid 2,000 mg DAILY PO 01/27/25 10:00 UNV Clopidogrel Bisulfate 75 mg DAILY PO 01/27/25 10:00 02/01/25 10:31 75 MG Furosemide 40 mg DAILY PO 01/27/25 10:00 02/01/25 10:30 40 MG Isosorbide Mononitrate 60 mg DAILY PO 01/27/25 10:00 01/29/25 17:56 60 MG Pantoprazole Sodium 40 mg DAILY PO 01/27/25 10:00 02/01/25 10:31 40 MG Potassium Chloride 10 meq DAILY PO 01/27/25 10:00 01/28/25 09:36 10 MEQ Ranolazine 500 mg BID PO 01/26/25 22:00 02/01/25 10:31 500 MG Atorvastatin Calcium 40 mg HS PO 01/26/25 22:00 01/31/25 22:37 40 MG Carvedilol 25 mg TID PO 01/26/25 22:00 02/01/25 05:30 25 MG Albuterol 2.5 mg Q6HWA NEB 01/26/25 18:00 02/01/25 06:30 2.5 MG Ipratropium [place] 0.5 mg Q6HWA NEB 01/26/25 18:00 02/01/25 06:30 0.5 MG Morphine Sulfate 2 mg Q30M PRN IV 01/27/25 12:30 01/27/25 12:31 2 MG Sucralfate 1 gm BID@0600,2200 PO 01/28/25 22:00 02/01/25 05:27 1 GM Docusate Sodium 100 mg BIDPRN PRN PO 01/28/25 13:15 01/30/25 22:15 100 MG Ketorolac Tromethamine 15 mg Q6HPRN PRN IV 01/28/25 20:30 02/02/25 14:29 01/31/25 22:39 15 MG Ferrous Sulfate 325 mg BIDWM PO 01/29/25 18:00 02/01/25 10:29 325 MG Montelukast Sodium 10 mg HS PO 01/29/25 22:00 01/31/25 22:37 10 MG Colchicine 0.6 mg DAILY PO 01/30/25 10:00 02/01/25 10:29 0.6 MG Apixaban 2.5 mg BID PO 01/30/25 22:00 02/01/25 10:30 2.5 MG Magnesium Oxide 400 mg DAILY PO 01/31/25 10:00 02/01/25 10:32 400 MG Sodium Chloride 10 ml QSHIFT@10,22 IV 01/31/25 22:00 02/01/25 10:29 10 ML laboratory and microbiology Laboratory Tests 01/31/25 06:33 Test 01/31/25 06:33 Range/Units Serum Glucose 106 74-106 mg/dL Assessment/Plan Complains of pleuretic chest pains. Had EGD and found to have Hiatal Hernia 74-year-old female presented with chest discomfort/productive cough/nasal congestion and abdominal pain. Chest pains have been pleuritic type. Cardiology was involved for cardiac aspects of care. Does have baseline history of coronary artery disease and status post bypass surgery. Is known to have abnormal nuclear stress test and the patient had previously decided to manage it medically. Patient had right and left heart catheterization and BRAD earlier this month. Since admission, serial troponin has been negative. Lying comfortably flat in bed. No JVD. pink mucosa. Lungs reveal scattered rhonchi. Cardiac: Regular, no thrills/murmur. Abdomen is soft. No hepatomegaly. Bowel sounds positive. Lower extremities do not reveal edema. Dorsalis pedis is 2+ bilateral Past medical history includes diabetes mellitus, hyperlipidemia, hypertension, diastolic heart failure, peripheral artery disease, GERD, anxiety, anemia, asthma, coronary artery disease, status post CABG and PCI, status post pacemaker implantation (Medtronic), status post old CVA, paroxysmal atrial flutter (on Eliquis), COPD on home oxygen, fibromyalgia, pulmonary hypertension, history of poor functional status, history of GI bleeding, pulmonary fibrosis, hiatal hernia, ex-smoker, status post gold cholecystectomy/hysterectomy. Is known to have closed grafts for CABG. Has had high risk PCI/left main in [facility] (few years back). Does have history of abnormal nuclear stress test and the plan has been to manage her medically. Has been kept on Eliquis and Plavix as outpatient. She is ex-smoker. Left heart catheterization revealed multivessel coronary artery disease. SVG nourishing 1 of the ramus intermedius was diseased but the decision was to manage it medically (ramus intermedius had good flow from patent left main (left main was stented before). Has been offered to go for Watchman device as outpatient. Echocardiogram of January 09, 2023 revealed LVEF of 55 to 60%, mild concentric left ventricular hypertrophy, no wall motion abnormality, mild biatrial enlargement, pacing wire in right-sided chambers, mild to moderate aortic insufficiency, mild mitral regurgitation, mild to moderate tricuspid regurgitation and right ventricular systolic pressure of 35 mmHg Echocardiogram of March 07, 2023 had revealed ejection fraction of 55 to 60%, mild concentric left ventricular hypertrophy, mild AI/MR/PI, mild biatrial enlargement, pacemaker wire in the right-sided chambers and right ventricular systolic pressure of 34 mmHg Echocardiogram of September 06, 2023 revealed ejection fraction of 55% and pacemaker in right-sided chambers Echocardiogram of December 26, 2023 had reported ejection fraction of 55-60%, no wall motion abnormality, [id number] aortic insufficiency, mild MR, moderate TR and right ventricular systolic pressure 42 mm Hg Echocardiogram of August 30, 2024 reported ejection fraction of 55-60%, no wall motion abnormality, mild biatrial enlargement, pacemaker in the right-sided chambers, mild AI/MR and moderate tricuspid regurgitation. Right ventricular systolic pressure was assessed at 41 mm Hg. Echocardiogram of December 20, 2024 (performed in the office) revealed ejection fraction of 60-65%, mild concentric left ventricular hypertrophy, pseudo normal LV filling, mild biatrial enlargement, mild right ventricular enlargement with good systolic function, moderate aortic insufficiency, aortic sclerosis with no stenosis, mild mitral annular calcification, [id number] MR/TR and right ventricular systolic pressure of 53 mm Hg. Echocardiogram of January 10, 2025 revealed mild concentric left ventricular hypertrophy, ejection fraction of 60-65%, pseudo normal LV filling, [id number] aortic insufficiency, mild mitral regurgitation, moderate tricuspid regurgitation and right ventricular systolic pressure of 67 mm Hg. BRAD of January 13, 2025 revealed no significant valvular disease Right and left heart catheterization of January 13, 2025 revealed multivessel coronary artery disease LVEF of around 50%; Apical aneurysm; Increased LVEDP (19 mm Hg); No pulmonary hypertension; Patent left main stent into LCX (dominant vessel) with no significant disease; Proximal LAD was DRIER TENDER with minor parallel collaterals. LAD was a diffusely diseased vessel with areas of focal aneurysm; Presence of 2 ramus intermedius; One of the ramus intermedius is with mild disease; Second ramus: Relatively small vessel with mild disease. There was SVG 'also' nourishing it. SVG itself had ostial and middle SVG section disease (decision was made to manage it medically); DANIELLE was atretic but patent; There was 2 other SVG's which were DRIER TENDER at ostium and suggestion was for medical therapy WBC: 7.9 - 4.1 - 5.3 - 6.0 - 5.9 Hemoglobin: 8.4 - 7.7 - 8.1 - 8.0 - 8.9 Creatinine: 0.64 - 0.62 - 0.90 - 0.81 Potassium: 3.8 - 3.7 - 3.6 - 3.8 Troponin (high sensitive): 4 - 3 Chest x-ray revealed: 1. Improvement in left lung base consolidation since prior. This could be improvement in atelectasis or pneumonia. 2. Mild cardiomegaly. Prior median sternotomy and CABG. 3. Diffuse reticular and interstitial opacities of the lungs likely related to known fibrosis. CT of chest revealed: IMPRESSION: Stable changes of moderate to severe pulmonary fibrosis. Cardiomegaly. EKG revealed sinus rhythm with nonspecific ST-T changes. Later revealed atrial flutter with block Telemetry reveals sinus rhythm and occasions of paced rhythm. Later, ongoing atrial flutter with variable block. Patient is a 74-year-old female who presented with atypical chest discomfort/productive cough/nasal congestion/abdominal pain for few days. Chest pain has been pleuritic. Acute coronary syndrome is not considered. Serial high sensitive troponin has been negative. It is of note that the patient had right and left heart catheterization earlier this month and the result pointed toward medical management. s/p EGD: Hiatal Hernia. Found to have Atrial flutter with variable block and started on Amio drip. Atypical chest pain, rule out component of Pericarditis. Will empirically start Colchicine. Ongoing atrial flutter. On IV Amiodarone. Was told that if IV amiodarone does not work, (in few days) may need / suggest for BRAD/Cardioversion (She herself is against it at this point) Chest discomfort, atypical Pleuritic chest pain COPD exacerbation Coronary artery disease, status post CABG/PCI Paroxysmal atrial flutter (on Eliquis as outpatient) COPD/Emphysema Pulmonary fibrosis Pulmonary hypertension, history of Chronic diastolic heart failure Status post pacemaker Hypokalemia Paroxysmal atrial flutter with RVR Hiatal Hernia Cardiac suggestions for management: Manage on telemetry Follow-up electrolytes and kidney function and correct abnormalities, keep potassium above 4 magnesium above 2 IV Amiodarone. 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 Antianginal therapy Continuation of Statin/Ranexa/Imdur/Coreg is suggested On Colchicine Further evaluation and management depends on the above and clinical course A total of 55 minutes was spent reviewing the patient record, examining the patient, making a diagnostic and therapeutic plan, discussing this plan with medical personnel, following up on diagnostic studies and following the patient for clinical stability excluding any and all procedures. At least 50% of this time was spent in direct, [id number] contact. Thank you for allowing me to participate in this patient's care. Further recommendations will depend on patient's clinical course. Please do not hesitate to contact me if you have any questions or concerns. This medical document was created using electronic medical record system with [employer] computerized dictation system. Although this document has been carefully reviewed, there may still be some phonetic and typographical errors. These areas are purely typographical due to the imperfection of the software programs, and do not reflect any compromise in the patient's medical care. Dietary Evaluation Review Comments: Continue current POC Expected Outcomes/Goals: To meet >75% estimated needs Fu 3-5 days Plan discussed with: Patient, Other (nurse) AJAY SMALLWOOD MD Feb 01, 2025 10:41
[2025-02-02] VITALS (15 sets, daily range): BP systolic 102–157; BP diastolic 45–82; PULSE 72–115; RESP 14–18; TEMP 96.9–98.8; O2SAT 97–100
[2025-02-02] MEDS: PROCHLORPERAZINE EDISYLATE 5 MG/ML 2ML VIAL IV PRN (01:22)
--- NOTE | 2025-02-02 07:38 | DVHPN2 ---
Progress Note - Dictate Date Seen: Feb 02, 2025 Medical Necessity Reason Pt with a Central, PICC or Fol: No vital signs Vital Sign Date Time Temp Pulse Resp B/P (MAP) Pulse Ox O2 Delivery O2 Flow Rate FiO2 02/02/25 06:56 92 16 100 02/02/25 06:50 Nasal Cannula* 3 32 02/02/25 06:00 101/50 02/02/25 05:00 97.6 97.6 Total Intake and Output 02/01/25 02/01/25 02/02/25 15:00 23:00 07:00 Intake Total 200 ml 400 ml 600 ml Output Total 20 ml Balance 200 ml 400 ml 580 ml medications Current Medications Medications Dose Ordered Sig/Romaine Route Start Time Stop Time Status Last Admin Dose Admin Acetaminophen/ Hydrocodone Bitart 1 tab Q4HP PRN PO 01/26/25 15:30 01/29/25 17:57 1 TAB Ondansetron HCl 4 mg Q4HP PRN IV 01/26/25 15:30 02/01/25 23:06 4 MG Enoxaparin Sodium 40 mg DAILY SC 01/27/25 10:00 UNV Acetaminophen 650 mg Q6HP PRN PO 01/26/25 15:30 Nitroglycerin 0.4 mg Q5MINP PRN SL 01/26/25 15:30 01/27/25 08:56 0.4 MG Ascorbic Acid 2,000 mg DAILY PO 01/27/25 10:00 UNV Clopidogrel Bisulfate 75 mg DAILY PO 01/27/25 10:00 02/01/25 10:31 75 MG Furosemide 40 mg DAILY PO 01/27/25 10:00 02/01/25 10:30 40 MG Isosorbide Mononitrate 60 mg DAILY PO 01/27/25 10:00 01/29/25 17:56 60 MG Pantoprazole Sodium 40 mg DAILY PO 01/27/25 10:00 02/01/25 10:31 40 MG Potassium Chloride 10 meq DAILY PO 01/27/25 10:00 01/28/25 09:36 10 MEQ Ranolazine 500 mg BID PO 01/26/25 22:00 02/01/25 22:06 500 MG Atorvastatin Calcium 40 mg HS PO 01/26/25 22:00 02/01/25 22:06 40 MG Carvedilol 25 mg TID PO 01/26/25 22:00 02/01/25 22:07 25 MG Albuterol 2.5 mg Q6HWA NEB 01/26/25 18:00 02/02/25 06:48 2.5 MG Ipratropium [place] 0.5 mg Q6HWA NEB 01/26/25 18:00 02/02/25 06:48 0.5 MG Morphine Sulfate 2 mg Q30M PRN IV 01/27/25 12:30 01/27/25 12:31 2 MG Sucralfate 1 gm BID@0600,2200 PO 01/28/25 22:00 02/02/25 05:55 1 GM Docusate Sodium 100 mg BIDPRN PRN PO 01/28/25 13:15 01/30/25 22:15 100 MG Ketorolac Tromethamine 15 mg Q6HPRN PRN IV 01/28/25 20:30 02/02/25 14:29 02/01/25 19:24 15 MG Ferrous Sulfate 325 mg BIDWM PO 01/29/25 18:00 02/01/25 17:16 325 MG Montelukast Sodium 10 mg HS PO 01/29/25 22:00 02/01/25 22:06 10 MG Colchicine 0.6 mg DAILY PO 01/30/25 10:00 02/01/25 10:29 0.6 MG Apixaban 2.5 mg BID PO 01/30/25 22:00 02/01/25 22:06 2.5 MG Magnesium Oxide 400 mg DAILY PO 01/31/25 10:00 02/01/25 10:32 400 MG Sodium Chloride 10 ml QSHIFT@10,22 IV 01/31/25 22:00 02/01/25 22:14 10 ML Prochlorperazine Edisylate 10 mg Q4HPRN PRN IV 02/02/25 01:00 02/02/25 01:22 10 MG laboratory and microbiology Laboratory Tests 01/31/25 06:33 Test 01/31/25 06:33 Range/Units Serum Glucose 106 74-106 mg/dL Assessment/Plan Complains of pleuretic chest pains. Had EGD and found to have Hiatal Hernia 74-year-old female presented with chest discomfort/productive cough/nasal congestion and abdominal pain. Chest pains have been pleuritic type. Cardiology was involved for cardiac aspects of care. Does have baseline history of coronary artery disease and status post bypass surgery. Is known to have abnormal nuclear stress test and the patient had previously decided to manage it medically. Patient had right and left heart catheterization and BRAD earlier this month. Since admission, serial troponin has been negative. Lying comfortably flat in bed. No JVD. pink mucosa. Lungs reveal scattered rhonchi. Cardiac: Regular, no thrills/murmur. Abdomen is soft. No hepatomegaly. Bowel sounds positive. Lower extremities do not reveal edema. Dorsalis pedis is 2+ bilateral Past medical history includes diabetes mellitus, hyperlipidemia, hypertension, diastolic heart failure, peripheral artery disease, GERD, anxiety, anemia, asthma, coronary artery disease, status post CABG and PCI, status post pacemaker implantation (Medtronic), status post old CVA, paroxysmal atrial flutter (on Eliquis), COPD on home oxygen, fibromyalgia, pulmonary hypertension, history of poor functional status, history of GI bleeding, pulmonary fibrosis, hiatal hernia, ex-smoker, status post gold cholecystectomy/hysterectomy. Is known to have closed grafts for CABG. Has had high risk PCI/left main in [facility] (few years back). Does have history of abnormal nuclear stress test and the plan has been to manage her medically. Has been kept on Eliquis and Plavix as outpatient. She is ex-smoker. Left heart catheterization revealed multivessel coronary artery disease. SVG nourishing 1 of the ramus intermedius was diseased but the decision was to manage it medically (ramus intermedius had good flow from patent left main (left main was stented before). Has been offered to go for Watchman device as outpatient. Echocardiogram of January 09, 2023 revealed LVEF of 55 to 60%, mild concentric left ventricular hypertrophy, no wall motion abnormality, mild biatrial enlargement, pacing wire in right-sided chambers, mild to moderate aortic insufficiency, mild mitral regurgitation, mild to moderate tricuspid regurgitation and right ventricular systolic pressure of 35 mmHg Echocardiogram of March 07, 2023 had revealed ejection fraction of 55 to 60%, mild concentric left ventricular hypertrophy, mild AI/MR/PI, mild biatrial enlargement, pacemaker wire in the right-sided chambers and right ventricular systolic pressure of 34 mmHg Echocardiogram of September 06, 2023 revealed ejection fraction of 55% and pacemaker in right-sided chambers Echocardiogram of December 26, 2023 had reported ejection fraction of 55-60%, no wall motion abnormality, [id number] aortic insufficiency, mild MR, moderate TR and right ventricular systolic pressure 42 mm Hg Echocardiogram of August 30, 2024 reported ejection fraction of 55-60%, no wall motion abnormality, mild biatrial enlargement, pacemaker in the right-sided chambers, mild AI/MR and moderate tricuspid regurgitation. Right ventricular systolic pressure was assessed at 41 mm Hg. Echocardiogram of December 20, 2024 (performed in the office) revealed ejection fraction of 60-65%, mild concentric left ventricular hypertrophy, pseudo normal LV filling, mild biatrial enlargement, mild right ventricular enlargement with good systolic function, moderate aortic insufficiency, aortic sclerosis with no stenosis, mild mitral annular calcification, [id number] MR/TR and right ventricular systolic pressure of 53 mm Hg. Echocardiogram of January 10, 2025 revealed mild concentric left ventricular hypertrophy, ejection fraction of 60-65%, pseudo normal LV filling, [id number] aortic insufficiency, mild mitral regurgitation, moderate tricuspid regurgitation and right ventricular systolic pressure of 67 mm Hg. BRAD of January 13, 2025 revealed no significant valvular disease Right and left heart catheterization of January 13, 2025 revealed multivessel coronary artery disease LVEF of around 50%; Apical aneurysm; Increased LVEDP (19 mm Hg); No pulmonary hypertension; Patent left main stent into LCX (dominant vessel) with no significant disease; Proximal LAD was SUPERINTENDENT LOCAL with minor parallel collaterals. LAD was a diffusely diseased vessel with areas of focal aneurysm; Presence of 2 ramus intermedius; One of the ramus intermedius is with mild disease; Second ramus: Relatively small vessel with mild disease. There was SVG 'also' nourishing it. SVG itself had ostial and middle SVG section disease (decision was made to manage it medically); DANIELLE was atretic but patent; There was 2 other SVG's which were SUPERINTENDENT LOCAL at ostium and suggestion was for medical therapy WBC: 7.9 - 4.1 - 5.3 - 6.0 - 5.9 Hemoglobin: 8.4 - 7.7 - 8.1 - 8.0 - 8.9 Creatinine: 0.64 - 0.62 - 0.90 - 0.81 Potassium: 3.8 - 3.7 - 3.6 - 3.8 Troponin (high sensitive): 4 - 3 Chest x-ray revealed: 1. Improvement in left lung base consolidation since prior. This could be improvement in atelectasis or pneumonia. 2. Mild cardiomegaly. Prior median sternotomy and CABG. 3. Diffuse reticular and interstitial opacities of the lungs likely related to known fibrosis. Repeat chest xry reported: IMPRESSION: Interval placement of right PICC with tip in appropriate position. CT of chest revealed: IMPRESSION: Stable changes of moderate to severe pulmonary fibrosis. Cardiomegaly. EKG revealed sinus rhythm with nonspecific ST-T changes. Later revealed atrial flutter with block Telemetry reveals sinus rhythm and occasions of paced rhythm. Later, ongoing atrial flutter with variable block. Later: NSR Patient is a 74-year-old female who presented with atypical chest discomfort/productive cough/nasal congestion/abdominal pain for few days. Chest pain has been pleuritic. Acute coronary syndrome is not considered. Serial high sensitive troponin has been negative. It is of note that the patient had right and left heart catheterization earlier this month and the result pointed toward medical management. s/p EGD: Hiatal Hernia. Found to have Atrial flutter with variable block and started on Amio drip. Atypical chest pain, rule out component of Pericarditis. Will empirically start Colchicine. Ongoing atrial flutter. On IV Amiodarone. Was told that if IV amiodarone does not work, (in few days) may need / suggest for BRAD/Cardioversion (She herself is against it at this point) Chest discomfort, atypical Pleuritic chest pain COPD exacerbation Coronary artery disease, status post CABG/PCI Paroxysmal atrial flutter (on Eliquis as outpatient) COPD/Emphysema Pulmonary fibrosis Pulmonary hypertension, history of Chronic diastolic heart failure Status post pacemaker Hypokalemia Paroxysmal atrial flutter with RVR Hiatal Hernia Cardiac suggestions for management: Manage on telemetry Follow-up electrolytes and kidney function and correct abnormalities, keep potassium above 4 magnesium above 2 IV Amiodarone, continue for now. 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 custodial continuation of Plavix (CAD h/o Left Main stenting) is suggested. Antianginal therapy Continuation of Statin/Ranexa/Imdur/Coreg is suggested Further evaluation and management depends on the above and clinical course A total of 55 minutes was spent reviewing the patient record, examining the patient, making a diagnostic and therapeutic plan, discussing this plan with medical personnel, following up on diagnostic studies and following the patient for clinical stability excluding any and all procedures. At least 50% of this time was spent in direct, [id number] contact. Thank you for allowing me to participate in this patient's care. Further recommendations will depend on patient's clinical course. Please do not hesitate to contact me if you have any questions or concerns. This medical document was created using electronic medical record system with [employer] computerized dictation system. Although this document has been carefully reviewed, there may still be some phonetic and typographical errors. These areas are purely typographical due to the imperfection of the software programs, and do not reflect any compromise in the patient's medical care. Dietary Evaluation Review Comments: Continue current POC Expected Outcomes/Goals: To meet >75% estimated needs Fu 3-5 days Plan discussed with: Patient, Other (nurse) AJAY SMALLWOOD MD Feb 02, 2025 07:38
[2025-02-02] MEDS: AMIODARONE 360mg/200mL PREMIX 200 ML IV SCH (12:38)
[2025-02-02 13:23] LABS: Hematocrit 30.7 % (36.0-46.0); Hemoglobin 9.8 g/dL (12.2-16.2); Mean Corpuscular Hemoglobin 28.9 pg (28.0-32.0); Mean Corpuscular Volume 90.4 fL (80.0-100.0)
[2025-02-02 13:32] LABS: Anisocytosis Slight; Total Cells Counted 100.0 (100)
[2025-02-02 13:42] LABS: Alanine Aminotransferase 19 U/L (7-40); Albumin 4.2 g/dL (3.2-4.8); Alkaline Phosphatase 81 U/L (46-116); Anion Gap 13 (5-15); BUN/Creatinine Ratio 23.7 (10.0-20.0); Bilirubin, Total 0.4 mg/dL (0.2-1.0); Calcium 9.6 mg/dL (8.7-10.4); Carbon Dioxide 28 mmol/L (20-31); Potassium 3.9 mmol/L (3.5-5.1); Sodium 137 mmol/L (136-145); Total Protein 6.0 g/dL (5.7-8.2)
[2025-02-02 13:45] LABS: Blood Urea Nitrogen 28 mg/dL (9-23); Chloride 96 mmol/L (98-107); Glucose 138 mg/dL (74-106)
--- NOTE | 2025-02-02 15:11 | DVHPN2 ---
Reviewed: Care Plan, H&P, Labs, Medications Changes from previous H/P or p: No Changes General: Per HPI Objective Vitals Vital Signs Date Time Temp Pulse Resp B/P (MAP) Pulse Ox O2 Delivery O2 Flow Rate FiO2 02/02/25 13:08 98.8 81 18 116/54 (74) 100 98.8 02/02/25 10:05 Nasal Cannula* 2 28 Intake/Output Intake and Output 02/02/25 07:00 Intake Total 1200 ml Output Total 20 ml Balance 1180 ml Intake Oral 1000 ml IV Total 200 ml Drainage Total 20 ml # Voids 8 # Bowel Movements 2 General Appearance: Alert, Oriented X3 Cardiovascular: Regular rate, Normal S1 Back: Flank Tenderness Medications Current Medications Medications Dose Ordered Sig/Romaine Route Start Time Stop Time Status Last Admin Dose Admin Acetaminophen/ Hydrocodone Bitart 1 tab Q4HP PRN PO 01/26/25 15:30 01/29/25 17:57 1 TAB Ondansetron HCl 4 mg Q4HP PRN IV 01/26/25 15:30 02/01/25 23:06 4 MG Enoxaparin Sodium 40 mg DAILY SC 01/27/25 10:00 UNV Acetaminophen 650 mg Q6HP PRN PO 01/26/25 15:30 Nitroglycerin 0.4 mg Q5MINP PRN SL 01/26/25 15:30 01/27/25 08:56 0.4 MG Ascorbic Acid 2,000 mg DAILY PO 01/27/25 10:00 UNV Clopidogrel Bisulfate 75 mg DAILY PO 01/27/25 10:00 02/02/25 09:43 75 MG Furosemide 40 mg DAILY PO 01/27/25 10:00 02/02/25 09:42 40 MG Isosorbide Mononitrate 60 mg DAILY PO 01/27/25 10:00 01/29/25 17:56 60 MG Pantoprazole Sodium 40 mg DAILY PO 01/27/25 10:00 02/02/25 09:43 40 MG Potassium Chloride 10 meq DAILY PO 01/27/25 10:00 01/28/25 09:36 10 MEQ Ranolazine 500 mg BID PO 01/26/25 22:00 02/02/25 09:43 500 MG Atorvastatin Calcium 40 mg HS PO 01/26/25 22:00 02/01/25 22:06 40 MG Carvedilol 25 mg TID PO 01/26/25 22:00 02/01/25 22:07 25 MG Albuterol 2.5 mg Q6HWA NEB 01/26/25 18:00 02/02/25 11:16 2.5 MG Ipratropium [place] 0.5 mg Q6HWA NEB 01/26/25 18:00 02/02/25 11:16 0.5 MG Morphine Sulfate 2 mg Q30M PRN IV 01/27/25 12:30 01/27/25 12:31 2 MG Sucralfate 1 gm BID@0600,2200 PO 01/28/25 22:00 02/02/25 05:55 1 GM Docusate Sodium 100 mg BIDPRN PRN PO 01/28/25 13:15 01/30/25 22:15 100 MG Ferrous Sulfate 325 mg BIDWM PO 01/29/25 18:00 02/02/25 09:41 325 MG Montelukast Sodium 10 mg HS PO 01/29/25 22:00 02/01/25 22:06 10 MG Colchicine 0.6 mg DAILY PO 01/30/25 10:00 02/01/25 10:29 0.6 MG Apixaban 2.5 mg BID PO 01/30/25 22:00 02/02/25 09:41 2.5 MG Magnesium Oxide 400 mg DAILY PO 01/31/25 10:00 02/02/25 09:43 400 MG Sodium Chloride 10 ml QSHIFT@10,22 IV 01/31/25 22:00 02/02/25 09:41 10 ML Prochlorperazine Edisylate 10 mg Q4HPRN PRN IV 02/02/25 01:00 02/02/25 12:38 10 MG Laboratory Results Laboratory Tests 02/02/25 13:06 Chemistry Test 02/02/25 13:06 Albumin 4.2 g/dL (3.2-4.8) Calcium Level 9.6 mg/dL (8.7-10.4) Total Protein 6.0 g/dL (5.7-8.2) LFT Test 02/02/25 13:06 Alanine Aminotransferase (ALT) 19 U/L (7-40) Alkaline Phosphatase 81 U/L (46-116) Aspartate Amino Transferase (AST) 40 U/L (<34) H Total Bilirubin 0.4 mg/dL (0.2-1.0) Urinalysis Test 01/27/25 16:43 Urine Color Colorless (Yellow) Urine Clarity Clear (Clear) Urine pH 5.0 (5.0-9.0) Urine Specific [place] 1.009 (1.001-1.035) Urine Protein Negative (Negative) Urine Ketones Negative (Negative) Urine Blood Negative /uL (Negative) Urine Nitrite Negative (Negative) Urine Bilirubin Negative (Negative) Urine Urobilinogen Normal mg/dL (Negative) Urine Leukocyte Esterase Negative /uL (Negative) Urine RBC <1 /hpf (0 - 4) Urine Microscopic WBC < 1 /HPF (0-5) Urine Squamous Epithelial Cells Few /hpf (<5) Urine Bacteria Few /hpf (None Seen) H Urine Hyaline Casts Few /lpf (0 - 2) Urine Glucose Normal mg/dL (Normal) Microbiology Microbiology Date/Time Source Procedure Growth Status 01/27/25 00:05 Nose MRSA Screen - Final Complete Labs and/or images reviewed: Labs reviewed by me, Image(s) reviewed by me Assessment/Plan Assessment/Plan #1 left chest pain ?pleuritic: toradol #2 anemia: s/p egd #3 cad s/p cabg s/p pci: per cardiology #4 pvd #5 copd/pulmonary fibrosis #6 htn #7 chronic resp failure #8 h/o cva #9 s/p a flutter/ rvr: on amiodarone, eliquis #10 s/p pacer advance care planning- full code- time spent 19 mins Plan discussed with: Patient My Orders Orders - JAMAR LERMA DO Procedure Category Date Status Time Electrocardigram EKG 02/01/25 Logged 19:19 * Gi [facility] Transformation Manager CONS 02/02/25 Transmitted 12:21 * Infectious [place]- CONS 02/02/25 Transmitted Jerry Tierney 14:19 Date of Service: Feb 02, 2025 Billing Provider: JAMAR LERMA DO Common Visit Codes: [id number] INP/OBS CARE(HIGH) JAMAR LERMA DO Feb 02, 2025 15:11
--- NOTE | 2025-02-02 16:46 | DVHINCON2 ---
Date of service: Feb 02, 2025 Referring Physician Aurelio Garces MD Reason for Consultation Acute kidney injury History of Present Illness Maria Del Rosario Slaughter is a 74-year-old F who presented to the hospital with chest discomfort/productive cough/nasal congestion and abdominal pain on 01/26/25. Patient developed AFib with RVR. Cardiology following. Patient had right and left heart catheterization and BRAD earlier this month. Since admission, serial troponin has been negative.GI also consulted for anemia. Patient underwent endoscopy with biopsy on 01/29/25. Per report: 2-3 cm sliding-type hiatal hernia with slightly irregular squamocolumnar junction no significant erosive esophagitis; mild antral gastritis and minimal duodenitis of the duodenal bulb otherwise normal examination up to the 2nd and 3rd part of the duodenal; extrinsic compression of the mid esophagus likely related to aortic arch. Labs this morning reported abnormalities of elevated Creatinine 1.18 with BUN of 28. eGFR 48. Allergies: Coded Allergies: Nitrofurantoin (Verified Allergy, Severe, 04/05/22) Amoxicillin (Verified Allergy, Mild, 09/07/23) 09/07/23: VOLUNTEER SERVICES COORDINATORJOHANNA, SPOKE WITH PATIENT. SHE POSSIBLY RECALLS TAKING AMOXICILLIN BEFORE, DENIES ANY RASHES, ITCHINESS, S/SX OF ANAPHYLAXIS. Ciprofloxacin (Verified Allergy, Mild, 09/07/23) 09/07/23: VOLUNTEER SERVICES COORDINATORJOHANNA, SPOKE WITH PATIENT. SHE MENTIONED LAST TIME SHE RECIEVED CIPRO INJECTION WAS A WHILE AGO. PATIENT ENDORSED SMALL BUMPS ON THE SKIN BUT PER PATIENT COULD HAVE BEEN DUE TO FAST INJECTION. HAS TAKEN LEVAQUIN PO BEFORE AND DENIES ANY RASH, ITCHINESS, S/SX OF ANAPHYLAXIS. Doxycycline (Verified Allergy, Unknown, "I get really sick", 09/01/24) Patient verbalizes that she "get really sick" in when receiving doxycycline in the past. When asked about specific symptoms in the past, she verbalizes not remembering. Home Meds Active Scripts Docusate Sodium (Docusate Sodium) 100 Mg Cap, 100 MG PO BIDPRN PRN for 30 Days, #60 CAP 0 Refills Prov:CHERRY HARRINGTON RESIDENT 01/14/25 Clopidogrel Bisulfate (Plavix) 75 Mg Tab, 75 MG PO DAILY for 30 Days, #30 TAB 0 Refills Prov:CHERRY HARRINGTON RESIDENT 01/14/25 Apixaban Base (ELIQUIS) 2.5 Mg Tab, 2.5 MG PO BID for 30 Days, #60 TAB 0 Refills Prov:CHERRY HARRINGTON RESIDENT 01/14/25 Ondansetron Odt 4MG Tab (ZOFRAN PO) 4 Mg Tb, 4 MG PO Q8HR PRN, #14 TAB ODT TAB-DISSOLVE IN MOUTH, THEN SWALLOW Prov:VITO SCHUSTER MD 07/08/23 Reported Medications Ferrous Sulfate (Ferosul) 325 Mg Tab, 1 TAB PO BID for 30 Days, #60 06/12/24 Dicyclomine Hcl (BENTYL CAPSULE) 10 Mg Cp, 1 CAP PO QID PRN for 5 Days, #20 06/12/24 Isosorbide Mononitrate (Isosorbide Mononitrate Er) 60 Mg Tab, 1 TAB PO DAILY for 90 Days, #90 06/12/24 Yxuwizafign-Foqkahvkhifn-Npyvb (Trelegy Ellipta 200-62.5-25 Mcg/INH) 1 Aer Aer, 1 PUFF IN DAILY for 30 Days, #60 06/12/24 Carvedilol (Carvedilol) 25 Mg Tab, 1 TAB PO TID for 30 Days, #90 02/22/24 Tramadol Hcl (Tramadol Hcl) 50 Mg Tab, 50 MG PO BID PRN for PAIN SCALE 1 THRU 6, MG 10/11/23 Ffcqjhwlfqg-Ataqotvqrvp-Gdp C- (Glucosamine Chondroitin) Tab, 1500 MG PO BID, TAB 10/11/23 Zinc Sulfate (Zinc Sulfate) 220 Mg Cap, 50 MG PO DAILY for 30 Days, MG 10/11/23 Ascorbic Acid (VITAMIN C TABLET) 500 Mg Tb, 2000 MG PO DAILY, #30 TAB 3 Refills 10/11/23 Nitroglycerin (Nitroglycerin Lingual) 0.4 Mg/Juliaetta Spr, 0.4 MG TL BID PRN for FOR CHEST PAIN, SPR 10/11/23 Magnesium Oxide (MAGNESIUM OXIDE) 400 Mg Tab, 1 TAB PO DAILY for 30 Days, #30 10/11/23 Evolocumab (Repatha) 140 Mg/Ml Inj, 1 ML SC Q2WEEK for 56 Days, #14 INJECT 1 ML SUBCUTANEOUSLY EVERY 2 WEEKS. 09/07/23 Potassium Chloride (K-Tabs) 10 Meq Tab, 1 TAB.CHEW PO DAILY 07/01/22 Pantoprazole Sodium Sesquihydr (Pantoprazole Sodium) 40 Mg Tab, 1 TAB PO DAILY for 30 Days, #30 07/01/22 Ranolazine (Ranolazine ER) 500 Mg Tab, 1 TAB PO BID for 30 Days, #60 07/01/22 Furosemide (Furosemide) 40 Mg Tab, 1 TAB PO DAILY for 90 Days, #90 07/01/22 Atorvastatin Calcium (ATORVASTATIN CALCIUM) 40 Mg Tab, 1 TAB PO HS for 30 Days, #30 07/01/22 Montelukast Sodium (MONTELUKAST SODIUM) 10 Mg Tab, 1 TAB PO DAILY for 30 Days, #30 07/01/22 Ticagrelor Base (BRILINTA) 90 Mg Tab, 1 TAB PO BID for 30 Days, #60 07/01/22 Current Medications Current Medications Medications (Trade) Dose Ordered Sig/Romaine Route PRN Reason Start Time Stop Time Status Last Admin Prochlorperazine Edisylate (Compazine Inj) 10 mg Q4HPRN PRN IV NAUSEA OR VOMITING 02/02/25 01:00 02/02/25 12:38 Ketorolac Tromethamine (Toradol Injection) 15 mg Q6HPRN PRN IV MODERATE PAIN (4-6 PAIN SCALE) 02/02/25 17:15 02/07/25 17:14 UNV Family History: Alcoholism Cardiovascular disease G8 FATHER FHx: lung cancer Hypertension G8 FATHER Secondary malignant neoplasm of lung G8 MOTHER Review of Systems Review of Systems: Constitutional: no fever, chill, weight loss HEENT: no eye pain, no hearing loss, no oral lesion, no scleral icterus Heart: no chest pain, no chest pressure Lung: no cough, no dyspnea with exertion Abdomen: see HPI H&P Exam Vital Signs/I&O Vital Sign Date Time Temp Pulse Resp B/P (MAP) Pulse Ox O2 Delivery O2 Flow Rate FiO2 02/02/25 16:51 98.5 83 18 157/58 (91) 98 98.5 02/02/25 10:05 Nasal Cannula* 2 28 Intake and Output 02/01/25 02/02/25 19:00 07:00 Intake Total 600 ml 600 ml Output Total 20 ml Balance 600 ml 580 ml Intake Oral 400 ml 600 ml IV Total 200 ml Drainage Total 20 ml # Voids 5 3 # Bowel Movements 2 Physical Exam Vitals and nursing notes reviewed. GEN: Healthy appearing, well-developed, NAD. HEENT: NC/AT; MMM. CV: RRR, no m/r/g. LUNGS: CTAB, no w/r/c. ABD: Soft, NT/ND, NBS, no masses or organomegaly. EXT: skin Warm, well perfused. no rashes. No clubbing, cyanosis, or edema. Trace pedal edema. NEURO: Ambulating with no limitations. No focal deficits. Labs/Diagnostic Data Labs/Diagnostic Data Laboratory Tests Test 02/02/25 13:06 02/01/25 21:00 01/31/25 06:33 01/29/25 04:58 Range/Units White Blood Count 28.7 #H 5.9 6.0 4.4-10.8 10^3/uL Red Blood Count 3.40 L 2.95 L 2.63 L 4.0-5.20 10^6/uL Hemoglobin 9.8 L 8.9 L 8.0 L 12.2-16.2 g/dL Hematocrit 30.7 #L 26.8 #L 23.8 L 36.0-46.0 % Mean Corpuscular Volume 90.4 90.8 90.6 80.0-100.0 fL Mean Corpuscular Hemoglobin 28.9 30.2 30.6 28.0-32.0 pg Mean Corpuscular Hemoglobin Concent 32.0 33.2 33.8 32.0-36.0 g/dL Red Cell Distribution Width 18.0 H 17.8 H 18.5 H 11.8-14.3 % Platelet Count 347 216 199 140-450 10^3/uL Mean Platelet Volume 7.7 7.2 7.3 6.9-10.8 fL Neutrophils (%) (Auto) 75.6 77.5 37.0-80.0 % Lymphocytes (%) (Auto) 10.0 9.9 L 10.0-50.0 % Monocytes (%) (Auto) 8.2 8.4 0.0-12.0 % Basophils (%) (Auto) 0.4 0.5 0.0-2.0 % Neutrophils # (Auto) 4.4 4.6 1.6-8.6 10 ^3/uL Lymphocytes # (Auto) 0.6 0.6 0.4-5.4 10 ^3/uL Monocytes # (Auto) 0.5 0.5 0-1.3 10 ^3/uL Differential Total Cells Counted 100.0 100 Neutrophils % (Manual) 83 H 37.0-80.0 Band Neutrophils % (Manual) 7 Lymphocytes % (Manual) 3 L 10.0-50.0 Monocytes % (Manual) 7 0-12 Eosinophils % (Manual) 0 0-7 Basophils % (Manual) 0 0.0-2.0 Metamyelocytes % (manual) 0 Myelocytes % (Manual) 0 Promyelocytes % (Manual) 0 Blast Cells % (Manual) 0 Reactive Lymphocytes 0 Platelet Estimate Adequate Anisocytosis (manual) Slight Sodium Level 137 138 136-145 mmol/L Potassium Level 3.9 3.8 3.5-5.1 mmol/L Chloride Level 96 L 101 98-107 mmol/L Carbon Dioxide Level 28 29 20-31 mmol/L Anion Gap 13 8 5-15 Blood Urea Nitrogen 28 H 13 9-23 mg/dL Creatinine 1.18 #H 0.81 0.550-1.02 mg/dL Glomerular Filtration Rate Calc 48 76 >90 mL/min BUN/Creatinine Ratio 23.7 H 16.0 10.0-20.0 Serum Glucose 138 H 106 74-106 mg/dL Calcium Level 9.6 9.5 8.7-10.4 mg/dL Total Bilirubin 0.4 0.2 0.2-1.0 mg/dL Aspartate Amino Transferase (AST) 40 H 17 <34 U/L Alanine Aminotransferase (ALT) 19 < 9 7-40 U/L Alkaline Phosphatase 81 71 46-116 U/L Total Protein 6.0 5.8 5.7-8.2 g/dL Albumin 4.2 4.0 3.2-4.8 g/dL Stool Occult Blood Positive Negative Stool Occult Blood Sample #3 Negative Eosinophils (%) (Auto) 5.8 3.7 0.0-7.0 % Eosinophils # (Auto) 0.3 0.2 0-0.8 10 ^3/uL Basophils # (Auto) 0 0 0-0.2 10 ^3/uL Nucleated Red Blood Cells 0.1 0.0 % Magnesium Level 1.8 1.6-2.6 mg/dL Test 01/28/25 05:52 01/27/25 16:43 6/23/25 06:26 01/26/25 12:16 Range/Units White Blood Count 5.3 # 4.1 #L 4.4-10.8 10^3/uL Red Blood Count 2.67 L 2.52 L 4.0-5.20 10^6/uL Hemoglobin 8.1 L 7.7 L 12.2-16.2 g/dL Hematocrit 24.7 L 23.1 L 36.0-46.0 % Mean Corpuscular Volume 92.4 92.0 80.0-100.0 fL Mean Corpuscular Hemoglobin 30.2 30.5 28.0-32.0 pg Mean Corpuscular Hemoglobin Concent 32.7 33.1 32.0-36.0 g/dL Red Cell Distribution Width 18.1 H 18.5 H 11.8-14.3 % Platelet Count 216 187 140-450 10^3/uL Mean Platelet Volume 7.4 7.3 6.9-10.8 fL Neutrophils (%) (Auto) 71.7 65.3 37.0-80.0 % Lymphocytes (%) (Auto) 11.8 14.1 10.0-50.0 % Monocytes (%) (Auto) 10.1 11.0 0.0-12.0 % Eosinophils (%) (Auto) 5.7 8.7 H 0.0-7.0 % Basophils (%) (Auto) 0.7 0.9 0.0-2.0 % Neutrophils # (Auto) 3.8 2.7 1.6-8.6 10 ^3/uL Lymphocytes # (Auto) 0.6 0.6 0.4-5.4 10 ^3/uL Monocytes # (Auto) 0.5 0.5 0-1.3 10 ^3/uL Eosinophils # (Auto) 0.3 0.4 0-0.8 10 ^3/uL Basophils # (Auto) 0 0 0-0.2 10 ^3/uL Nucleated Red Blood Cells 0.1 0.1 % Prothrombin Time 13.8 H 9.3-11.8 sec Prothrombin Time INR 1.34 H 0.9-1.15 Activated Partial Thromboplast Time 28.6 24.5-34.5 SEC Sodium Level 141 145 136-145 mmol/L Potassium Level 3.6 3.7 3.5-5.1 mmol/L Chloride Level 102 109 H 98-107 mmol/L Carbon Dioxide Level 28 28 20-31 mmol/L Anion Gap 11 8 5-15 Blood Urea Nitrogen 15 15 9-23 mg/dL Creatinine 0.90 # 0.62 0.550-1.02 mg/dL Glomerular Filtration Rate Calc 67 93 >90 mL/min BUN/Creatinine Ratio 16.7 24.2 H 10.0-20.0 Serum Glucose 94 87 74-106 mg/dL Calcium Level 9.4 9.1 8.7-10.4 mg/dL Urine Color Colorless Yellow Urine Clarity Clear Clear Urine pH 5.0 5.0-9.0 Urine Specific [place] 1.009 1.001-1.035 Urine Protein Negative Negative Urine Ketones Negative Negative Urine Blood Negative Negative /uL Urine Nitrite Negative Negative Urine Bilirubin Negative Negative Urine Urobilinogen Normal Negative mg/dL Urine Leukocyte Esterase Negative Negative /uL Urine RBC <1 0 - 4 /hpf Urine Microscopic WBC < 1 0-5 /HPF Urine Squamous Epithelial Cells Few <5 /hpf Urine Bacteria Few H None Seen /hpf Urine Hyaline Casts Few 0 - 2 /lpf Urine Glucose Normal Normal mg/dL Total Bilirubin 0.3 0.2-1.0 mg/dL Aspartate Amino Transferase (AST) 19 <34 U/L Alanine Aminotransferase (ALT) 12 7-40 U/L Alkaline Phosphatase 69 46-116 U/L Total Protein 5.5 L 5.7-8.2 g/dL Albumin 3.7 3.2-4.8 g/dL Hepatitis B Surface Antigen Negative Negative Hepatitis C Antibody Negative Negative Troponin I High Sensitivity 3 L </=34 ng/L Test 01/26/25 11:16 Range/Units White Blood Count 7.9 4.4-10.8 10^3/uL Red Blood Count 2.73 L 4.0-5.20 10^6/uL Hemoglobin 8.4 L 12.2-16.2 g/dL Hematocrit 25.0 L 36.0-46.0 % Mean Corpuscular Volume 91.4 80.0-100.0 fL Mean Corpuscular Hemoglobin 30.7 28.0-32.0 pg Mean Corpuscular Hemoglobin Concent 33.5 32.0-36.0 g/dL Red Cell Distribution Width 18.1 H 11.8-14.3 % Platelet Count 226 140-450 10^3/uL Mean Platelet Volume 7.2 6.9-10.8 fL Neutrophils (%) (Auto) 81.4 H 37.0-80.0 % Lymphocytes (%) (Auto) 7.3 L 10.0-50.0 % Monocytes (%) (Auto) 7.9 0.0-12.0 % Eosinophils (%) (Auto) 2.6 0.0-7.0 % Basophils (%) (Auto) 0.8 0.0-2.0 % Neutrophils # (Auto) 6.4 1.6-8.6 10 ^3/uL Lymphocytes # (Auto) 0.6 0.4-5.4 10 ^3/uL Monocytes # (Auto) 0.6 0-1.3 10 ^3/uL Eosinophils # (Auto) 0.2 0-0.8 10 ^3/uL Basophils # (Auto) 0.1 0-0.2 10 ^3/uL Nucleated Red Blood Cells 0.0 % Sodium Level 143 136-145 mmol/L Potassium Level 3.8 3.5-5.1 mmol/L Chloride Level 107 98-107 mmol/L Carbon Dioxide Level 25 20-31 mmol/L Anion Gap 11 5-15 Blood Urea Nitrogen 16 9-23 mg/dL Creatinine 0.64 0.550-1.02 mg/dL Glomerular Filtration Rate Calc 92 >90 mL/min BUN/Creatinine Ratio 25.0 H 10.0-20.0 Serum Glucose 117 H 74-106 mg/dL Calcium Level 9.0 8.7-10.4 mg/dL Troponin I High Sensitivity 4 </=34 ng/L Microbiology Date/Time Source Procedure Growth Status 01/27/25 00:05 Nose MRSA Screen - Final Complete Assessment Acute kidney injury Chest pain Asthma/COPD CVA Congestive Heart Failure Diabetes mellitus CAD SP CABG X 3 Pulmonary fibrosis 3 L home O2 GERD Hypertension ID Plan/Recommendation Agreement with your ongoing assessment and plan of care. Cardiology care management deferred. GI consulted for positive stool occult. Daily lab monitoring to include renal function and electrolytes. Electrolyte replacement prn. Diuretics with Lasix 40 mg PO daily. Strict Intake/Output. Home medications as ordered. Protonix 40 mg oral daily. Additional plan as per the hospital course. Plan discussed with: Patient, Other (RN) KIMBERLY WERNRE 29, 2025 16:46
[2025-02-02] MEDS ORDERED: KETOROLAC TROMETH 30 MG/ML 1ML VIAL IV PRN (17:15)
[2025-02-03] VITALS (14 sets, daily range): BP systolic 97–155; BP diastolic 48–80; PULSE 70–90; RESP 14–20; TEMP 97–98.2; O2SAT 94–100
--- NOTE | 2025-02-03 00:55 | DVHPN2 ---
Progress Note - Dictate Date Seen: Feb 03, 2025 Medical Necessity Reason Pt with a Central, PICC or Fol: No Subjective Patient seen at bedside resting comfortably Patient is continuing to have some nausea and vomiting She also had multiple bowel movements today GI was consulted for Hemoccult-positive stools There is concern for possible C diff On PPI and Carafate for hiatal hernia and gastritis Tolerating soft mechanical diet EGD findings Operative Report DATE OF OPERATION: 01/29/25 PROCEDURE: Upper Endoscopy with biopsy. PREOPERATIVE INDICATION: The patient is a 74 -year-old female undergoing endoscopy for anemia and atypical chest pain POSTOPERATIVE DIAGNOSES: 1. 2-3 cm sliding-type hiatal hernia with slightly irregular squamocolumnar junction no significant erosive esophagitis 2. Mild antral gastritis and minimal duodenitis of the duodenal bulb otherwise normal examination up to the 2nd and 3rd part of the duodenal 3. Extrinsic compression of the mid esophagus likely related to aortic arch vital signs Vital Sign Date Time Temp Pulse Resp B/P (MAP) Pulse Ox O2 Delivery O2 Flow Rate FiO2 02/02/25 21:42 75 105/56 02/02/25 21:00 98.3 16 99 98.3 02/02/25 20:00 Nasal Cannula* 2 28 Total Intake and Output 02/02/25 02/02/25 02/03/25 15:00 23:00 07:00 Intake Total 200 ml 300 ml Balance 200 ml 300 ml medications Current Medications Medications Dose Ordered Sig/Romaine Route Start Time Stop Time Status Last Admin Dose Admin Acetaminophen/ Hydrocodone Bitart 1 tab Q4HP PRN PO 01/26/25 15:30 01/29/25 17:57 1 TAB Ondansetron HCl 4 mg Q4HP PRN IV 01/26/25 15:30 02/02/25 21:42 4 MG Enoxaparin Sodium 40 mg DAILY SC 01/27/25 10:00 UNV Acetaminophen 650 mg Q6HP PRN PO 01/26/25 15:30 Nitroglycerin 0.4 mg Q5MINP PRN SL 01/26/25 15:30 01/27/25 08:56 0.4 MG Ascorbic Acid 2,000 mg DAILY PO 01/27/25 10:00 UNV Clopidogrel Bisulfate 75 mg DAILY PO 01/27/25 10:00 02/02/25 09:43 75 MG Furosemide 40 mg DAILY PO 01/27/25 10:00 02/02/25 09:42 40 MG Isosorbide Mononitrate 60 mg DAILY PO 01/27/25 10:00 02/02/25 16:47 60 MG Pantoprazole Sodium 40 mg DAILY PO 01/27/25 10:00 02/02/25 09:43 40 MG Potassium Chloride 10 meq DAILY PO 01/27/25 10:00 01/28/25 09:36 10 MEQ Ranolazine 500 mg BID PO 01/26/25 22:00 02/02/25 21:42 500 MG Atorvastatin Calcium 40 mg HS PO 01/26/25 22:00 02/02/25 21:42 40 MG Carvedilol 25 mg TID PO 01/26/25 22:00 02/02/25 21:42 25 MG Albuterol 2.[address] [facility] 01/26/25 18:00 02/02/25 11:16 2.5 MG Ipratropium [place] 0.[address] [facility] 01/26/25 18:00 02/02/25 11:16 0.5 MG Morphine Sulfate 2 mg Q30M PRN IV 01/27/25 12:30 01/27/25 12:31 2 MG Sucralfate 1 gm BID@0600,2200 PO 01/28/25 22:00 02/02/25 21:41 1 GM Docusate Sodium 100 mg BIDPRN PRN PO 01/28/25 13:15 01/30/25 22:15 100 MG Ferrous Sulfate 325 mg BIDWM PO 01/29/25 18:00 02/02/25 17:42 325 MG Montelukast Sodium 10 mg HS PO 01/29/25 22:00 02/02/25 21:42 10 MG Colchicine 0.6 mg DAILY PO 01/30/25 10:00 02/01/25 10:29 0.6 MG Apixaban 2.5 mg BID PO 01/30/25 22:00 02/02/25 21:42 2.5 MG Magnesium Oxide 400 mg DAILY PO 01/31/25 10:00 02/02/25 09:43 400 MG Sodium Chloride 10 ml QSHIFT@10,22 IV 01/31/25 22:00 02/02/25 21:41 10 ML Prochlorperazine Edisylate 10 mg Q4HPRN PRN IV 02/02/25 01:00 02/02/25 12:38 10 MG Ketorolac Tromethamine 15 mg Q6HPRN PRN IV 02/02/25 17:15 02/07/25 17:14 Hold objective General: NAD, AAOX3 Chest: lung barton clear to auscultation Heart: RRR, no murmur Abdomen: non-distended, no tenderness to palpation, +BS laboratory and microbiology Laboratory Tests 02/02/25 13:06 Test 02/02/25 13:06 Range/Units Serum Glucose 138 H 74-106 mg/dL Problems(with codes): (1) Hiatal hernia (2) COPD with acute exacerbation (3) Weakness (4) Symptomatic anemia (5) Generalized weakness (6) Pulmonary fibrosis (7) Leukocytosis Prognosis Plan Patient is currently on PPI and Carafate She is on Zofran as needed for nausea vomiting Currently patient is not on any IV antibiotics Possible medication induced side effect from amiodarone Continue to monitor labs ; check CMP and CBC Right upper quadrant ultrasound rule out cholelithiasis I will follow up patient with you Dietary Evaluation Review Comments: Continue current POC Expected Outcomes/Goals: To meet >75% estimated needs Fu 3-5 days Plan discussed with: Patient, Other (Nurse) SARAHI BARROS MD Feb 03, 2025 00:55
[2025-02-03 02:03] LABS: Hematocrit 23.1 % (36.0-46.0); Hemoglobin 7.5 g/dL (12.2-16.2); Mean Corpuscular Hemoglobin 29.2 pg (28.0-32.0); Mean Corpuscular Volume 90.5 fL (80.0-100.0); Nucleated Red Blood Cells % 0.0 %
[2025-02-03 02:07] LABS: Alanine Aminotransferase 11 U/L (7-40); Albumin 3.5 g/dL (3.2-4.8); Alkaline Phosphatase 62 U/L (46-116); Anion Gap 14 (5-15); BUN/Creatinine Ratio 25.0 (10.0-20.0); Bilirubin, Total 0.4 mg/dL (0.2-1.0); Carbon Dioxide 26 mmol/L (20-31)
[2025-02-03 02:18] LABS: Chloride 86 mmol/L (98-107); Potassium 3.4 mmol/L (3.5-5.1); Sodium 126 mmol/L (136-145)
[2025-02-03 02:19] LABS: Blood Urea Nitrogen 28 mg/dL (9-23); Calcium 8.0 mg/dL (8.7-10.4); Glucose 425 mg/dL (74-106); Total Protein 5.2 g/dL (5.7-8.2)
[2025-02-03] MEDS ORDERED: DEXTROSE (50%) 50ML SYRG IV PRN (02:45)
[2025-02-03] MEDS: ACCU-CHEK COMFORT CURVE STRIP VI SCH (05:55)
[2025-02-03] MEDS: InsuLIN REG 1unit/0.01ml Soln (100units/ml) SC SCH (05:55)
--- NOTE | 2025-02-03 07:42 | DVHPN2 ---
Progress Note - Dictate Date Seen: Feb 03, 2025 Medical Necessity Reason Pt with a Central, PICC or Fol: No vital signs Vital Sign Date Time Temp Pulse Resp B/P (MAP) Pulse Ox O2 Delivery O2 Flow Rate FiO2 02/03/25 07:02 70 14 99 02/03/25 06:54 105/84 02/03/25 06:52 Nasal Cannula* 3 32 02/03/25 05:00 98.2 98.2 Total Intake and Output 02/02/25 02/02/25 02/03/25 15:00 23:00 07:00 Intake Total 200 ml 500 ml 150 ml Balance 200 ml 500 ml 150 ml medications Current Medications Medications Dose Ordered Sig/Romaine Route Start Time Stop Time Status Last Admin Dose Admin Acetaminophen/ Hydrocodone Bitart 1 tab Q4HP PRN PO 01/26/25 15:30 02/03/25 01:53 1 TAB Ondansetron HCl 4 mg Q4HP PRN IV 01/26/25 15:30 02/03/25 05:55 4 MG Enoxaparin Sodium 40 mg DAILY SC 01/27/25 10:00 UNV Acetaminophen 650 mg Q6HP PRN PO 01/26/25 15:30 Nitroglycerin 0.4 mg Q5MINP PRN SL 01/26/25 15:30 01/27/25 08:56 0.4 MG Ascorbic Acid 2,000 mg DAILY PO 01/27/25 10:00 UNV Clopidogrel Bisulfate 75 mg DAILY PO 01/27/25 10:00 02/02/25 09:43 75 MG Furosemide 40 mg DAILY PO 01/27/25 10:00 02/02/25 09:42 40 MG Isosorbide Mononitrate 60 mg DAILY PO 01/27/25 10:00 02/02/25 16:47 60 MG Pantoprazole Sodium 40 mg DAILY PO 01/27/25 10:00 02/02/25 09:43 40 MG Potassium Chloride 10 meq DAILY PO 01/27/25 10:00 01/28/25 09:36 10 MEQ Ranolazine 500 mg BID PO 01/26/25 22:00 02/02/25 21:42 500 MG Atorvastatin Calcium 40 mg HS PO 01/26/25 22:00 02/02/25 21:42 40 MG Carvedilol 25 mg TID PO 01/26/25 22:00 02/03/25 05:55 25 MG Albuterol 2.5 mg Q6HWA NEB 01/26/25 18:00 02/03/25 06:51 2.5 MG Ipratropium [place] 0.5 mg Q6HWA NEB 01/26/25 18:00 02/03/25 06:51 0.5 MG Morphine Sulfate 2 mg Q30M PRN IV 01/27/25 12:30 01/27/25 12:31 2 MG Sucralfate 1 gm BID@0600,2200 PO 01/28/25 22:00 02/03/25 05:55 1 GM Docusate Sodium 100 mg BIDPRN PRN PO 01/28/25 13:15 01/30/25 22:15 100 MG Ferrous Sulfate 325 mg BIDWM PO 01/29/25 18:00 02/02/25 17:42 325 MG Montelukast Sodium 10 mg HS PO 01/29/25 22:00 02/02/25 21:42 10 MG Colchicine 0.6 mg DAILY PO 01/30/25 10:00 02/01/25 10:29 0.6 MG Apixaban 2.5 mg BID PO 01/30/25 22:00 02/02/25 21:42 2.5 MG Magnesium Oxide 400 mg DAILY PO 01/31/25 10:00 02/02/25 09:43 400 MG Sodium Chloride 10 ml QSHIFT@10,22 IV 01/31/25 22:00 02/02/25 21:41 10 ML Prochlorperazine Edisylate 10 mg Q4HPRN PRN IV 02/02/25 01:00 02/02/25 12:38 10 MG Ketorolac Tromethamine 15 mg Q6HPRN PRN IV 02/02/25 17:15 02/07/25 17:14 Hold Diagnostic Test (Pha) 1 strip Q6HR 02/03/25 06:00 02/03/25 05:55 1 STRIP Insulin Human Regular Q6HR SC 02/03/25 06:00 Dextrose 50 ml UD PRN IV 02/03/25 02:45 laboratory and microbiology Laboratory Tests 02/03/25 01:34 Test 02/03/25 01:34 Range/Units Serum Glucose 425 *H 74-106 mg/dL Assessment/Plan Had EGD and found to have Hiatal Hernia Had diarrhea and some GI bleeding Feels better today No chest pain 74-year-old female presented with chest discomfort/productive cough/nasal congestion and abdominal pain. Chest pains have been pleuritic type. Cardiology was involved for cardiac aspects of care. Does have baseline history of coronary artery disease and status post bypass surgery. Is known to have abnormal nuclear stress test and the patient had previously decided to manage it medically. Patient had right and left heart catheterization and BRAD earlier this month. Since admission, serial troponin has been negative. Lying comfortably flat in bed. No JVD. pink mucosa. Lungs reveal scattered rhonchi. Cardiac: Regular, no thrills/murmur. Abdomen is soft. No hepatomegaly. Bowel sounds positive. Lower extremities do not reveal edema. Dorsalis pedis is 2+ bilateral Past medical history includes diabetes mellitus, hyperlipidemia, hypertension, diastolic heart failure, peripheral artery disease, GERD, anxiety, anemia, asthma, coronary artery disease, status post CABG and PCI, status post pacemaker implantation ([employer]), status post old CVA, paroxysmal atrial flutter (on Eliquis), COPD on home oxygen, fibromyalgia, pulmonary hypertension, history of poor functional status, history of GI bleeding, pulmonary fibrosis, hiatal hernia, ex-smoker, status post gold cholecystectomy/hysterectomy. Is known to have closed grafts for CABG. Has had high risk PCI/left main in [facility] (few years back). Does have history of abnormal nuclear stress test and the plan has been to manage her medically. Has been kept on Eliquis and Plavix as outpatient. She is ex-smoker. Left heart catheterization revealed multivessel coronary artery disease. SVG nourishing 1 of the ramus intermedius was diseased but the decision was to manage it medically (ramus intermedius had good flow from patent left main (left main was stented before). Has been offered to go for Watchman device as outpatient. Echocardiogram of January 09, 2023 revealed LVEF of 55 to 60%, mild concentric left ventricular hypertrophy, no wall motion abnormality, mild biatrial enlargement, pacing wire in right-sided chambers, mild to moderate aortic insufficiency, mild mitral regurgitation, mild to moderate tricuspid regurgitation and right ventricular systolic pressure of 35 mmHg Echocardiogram of March 07, 2023 had revealed ejection fraction of 55 to 60%, mild concentric left ventricular hypertrophy, mild AI/MR/PI, mild biatrial enlargement, pacemaker wire in the right-sided chambers and right ventricular systolic pressure of 34 mmHg Echocardiogram of September 06, 2023 revealed ejection fraction of 55% and pacemaker in right-sided chambers Echocardiogram of December 26, 2023 had reported ejection fraction of 55-60%, no wall motion abnormality, [id number] aortic insufficiency, mild MR, moderate TR and right ventricular systolic pressure 42 mm Hg Echocardiogram of August 30, 2024 reported ejection fraction of 55-60%, no wall motion abnormality, mild biatrial enlargement, pacemaker in the right-sided chambers, mild AI/MR and moderate tricuspid regurgitation. Right ventricular systolic pressure was assessed at 41 mm Hg. Echocardiogram of December 20, 2024 (performed in the office) revealed ejection fraction of 60-65%, mild concentric left ventricular hypertrophy, pseudo normal LV filling, mild biatrial enlargement, mild right ventricular enlargement with good systolic function, moderate aortic insufficiency, aortic sclerosis with no stenosis, mild mitral annular calcification, [id number] MR/TR and right ventricular systolic pressure of 53 mm Hg. Echocardiogram of January 10, 2025 revealed mild concentric left ventricular hypertrophy, ejection fraction of 60-65%, pseudo normal LV filling, [id number] aortic insufficiency, mild mitral regurgitation, moderate tricuspid regurgitation and right ventricular systolic pressure of 67 mm Hg. BRAD of January 13, 2025 revealed no significant valvular disease Right and left heart catheterization of January 13, 2025 revealed multivessel coronary artery disease LVEF of around 50%; Apical aneurysm; Increased LVEDP (19 mm Hg); No pulmonary hypertension; Patent left main stent into LCX (dominant vessel) with no significant disease; Proximal LAD was PEANUT SHELLER with minor parallel collaterals. LAD was a diffusely diseased vessel with areas of focal aneurysm; Presence of 2 ramus intermedius; One of the ramus intermedius is with mild disease; Second ramus: Relatively small vessel with mild disease. There was SVG 'also' nourishing it. SVG itself had ostial and middle SVG section disease (decision was made to manage it medically); DANIELLE was atretic but patent; There was 2 other SVG's which were PEANUT SHELLER at ostium and suggestion was for medical therapy WBC: 7.9 - 4.1 - 5.3 - 6.0 - 5.9 - 28.7 - 18.2 Hemoglobin: 8.4 - 7.7 - 8.1 - 8.0 - 8.9 - 9.8 - 7.5 Creatinine: 0.64 - 0.62 - 0.90 - 0.81 - 1.18 - 1.12 Potassium: 3.8 - 3.7 - 3.6 - 3.8 - 3.9 - 3.4 Troponin (high sensitive): 4 - 3 Stool OB: positive Chest x-ray revealed: 1. Improvement in left lung base consolidation since prior. This could be improvement in atelectasis or pneumonia. 2. Mild cardiomegaly. Prior median sternotomy and CABG. 3. Diffuse reticular and interstitial opacities of the lungs likely related to known fibrosis. Repeat chest xry reported: IMPRESSION: Interval placement of right PICC with tip in appropriate position. CT of chest revealed: IMPRESSION: Stable changes of moderate to severe pulmonary fibrosis. Cardiomegaly. EKG revealed sinus rhythm with nonspecific ST-T changes. Later revealed atrial flutter with block Telemetry reveals sinus rhythm and occasions of paced rhythm. Later, ongoing atrial flutter with variable block. Later: NSR Patient is a 74-year-old female who presented with atypical chest discomfort/productive cough/nasal congestion/abdominal pain for few days. Chest pain has been pleuritic. Acute coronary syndrome is not considered. Serial high sensitive troponin has been negative. It is of note that the patient had right and left heart catheterization earlier this month and the result pointed toward medical management. s/p EGD: Hiatal Hernia. Found to have Atrial flutter with variable block and started on Amio drip. Atypical chest pain, rule out component of Pericarditis. Will empirically start Colchicine. Ongoing atrial flutter. On IV Amiodarone. Was told that if IV amiodarone does not work, (in few days) may need / suggest for BRAD/Cardioversion (She herself is against it at this point). Converted to sinus rhythm (no need for Cardioversion). Chest discomfort, atypical Pleuritic chest pain COPD exacerbation Coronary artery disease, status post CABG/PCI Paroxysmal atrial flutter (on Eliquis as outpatient) COPD/Emphysema Pulmonary fibrosis Pulmonary hypertension, history of Chronic diastolic heart failure Status post pacemaker Hypokalemia Paroxysmal atrial flutter with RVR Hiatal Hernia Sepsis Diarrhea Cardiac suggestions for management: Manage on telemetry Fluid resuscitation Follow-up electrolytes and kidney function and correct abnormalities, keep potassium above 4 magnesium above 2 Stop IV Amio. Oral Amio: 200 mg BID. 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 prison continuation of Plavix (CAD h/o Left Main stenting) is suggested. Antianginal therapy Continuation of Statin/Ranexa/Imdur/Coreg is suggested Further evaluation and management depends on the above and clinical course A total of 55 minutes was spent reviewing the patient record, examining the patient, making a diagnostic and therapeutic plan, discussing this plan with medical personnel, following up on diagnostic studies and following the patient for clinical stability excluding any and all procedures. At least 50% of this time was spent in direct, [id number] contact. Thank you for allowing me to participate in this patient's care. Further recommendations will depend on patient's clinical course. Please do not hesitate to contact me if you have any questions or concerns. This medical document was created using electronic medical record system with [employer] computerized dictation system. Although this document has been carefully reviewed, there may still be some phonetic and typographical errors. These areas are purely typographical due to the imperfection of the software programs, and do not reflect any compromise in the patient's medical care. Dietary Evaluation Review Comments: Continue current POC Expected Outcomes/Goals: To meet >75% estimated needs Fu 3-5 days Plan discussed with: Patient, Other (nurse) AJAY SMALLWOOD MD Feb 03, 2025 07:42
[2025-02-03] MEDS: AMIODARONE HCL 200 MG TAB PO ONE (09:17)
--- NOTE | 2025-02-03 12:05 | DVHPN2 ---
Progress Note Date Seen: Feb 03, 2025 Medical Necessity Reason Pt with a Central, PICC or Fol: No Subjective Patient reports: No new complaints Review of Systems: HEENT:Normal, CVS:Normal, RESPIRATORY:Normal, GI:Normal, :Normal, MSK:Normal, NEURO:Normal Objective vital signs Vital Sign Date Time Temp Pulse Resp B/P (MAP) Pulse Ox O2 Delivery O2 Flow Rate FiO2 02/03/25 09:23 110/50 02/03/25 08:55 97.6 73 16 97 97.6 02/03/25 08:00 Nasal Cannula* 2 28 Total Intake and Output 02/02/25 02/02/25 02/03/25 15:00 23:00 07:00 Intake Total 200 ml 500 ml 150 ml Balance 200 ml 500 ml 150 ml medications Current Medications Medications Dose Ordered Sig/Romaien Route Start Time Stop Time Status Last Admin Dose Admin Acetaminophen/ Hydrocodone Bitart 1 tab Q4HP PRN PO 01/26/25 15:30 02/03/25 01:53 1 TAB Ondansetron HCl 4 mg Q4HP PRN IV 01/26/25 15:30 02/03/25 05:55 4 MG Enoxaparin Sodium 40 mg DAILY SC 01/27/25 10:00 UNV Acetaminophen 650 mg Q6HP PRN PO 01/26/25 15:30 Nitroglycerin 0.4 mg Q5MINP PRN SL 01/26/25 15:30 01/27/25 08:56 0.4 MG Ascorbic Acid 2,000 mg DAILY PO 01/27/25 10:00 UNV Clopidogrel Bisulfate 75 mg DAILY PO 01/27/25 10:00 02/03/25 09:18 75 MG Furosemide 40 mg DAILY PO 01/27/25 10:00 02/02/25 09:42 40 MG Isosorbide Mononitrate 60 mg DAILY PO 01/27/25 10:00 02/02/25 16:47 60 MG Pantoprazole Sodium 40 mg DAILY PO 01/27/25 10:00 02/03/25 09:23 40 MG Potassium Chloride 10 meq DAILY PO 01/27/25 10:00 02/03/25 09:18 10 MEQ Ranolazine 500 mg BID PO 01/26/25 22:00 02/03/25 09:18 500 MG Atorvastatin Calcium 40 mg HS PO 01/26/25 22:00 02/02/25 21:42 40 MG Carvedilol 25 mg TID PO 01/26/25 22:00 02/03/25 05:55 25 MG Albuterol 2.5 mg Q6HWA NEB 01/26/25 18:00 02/03/25 06:51 2.5 MG Ipratropium [place] 0.5 mg Q6HWA NEB 01/26/25 18:00 02/03/25 06:51 0.5 MG Morphine Sulfate 2 mg Q30M PRN IV 01/27/25 12:30 01/27/25 12:31 2 MG Sucralfate 1 gm BID@0600,2200 PO 01/28/25 22:00 02/03/25 05:55 1 GM Docusate Sodium 100 mg BIDPRN PRN PO 01/28/25 13:15 01/30/25 22:15 100 MG Ferrous Sulfate 325 mg BIDWM PO 01/29/25 18:00 02/03/25 08:27 325 MG Montelukast Sodium 10 mg HS PO 01/29/25 22:00 02/02/25 21:42 10 MG Apixaban 2.5 mg BID PO 01/30/25 22:00 02/02/25 21:42 2.5 MG Magnesium Oxide 400 mg DAILY PO 01/31/25 10:00 02/03/25 09:23 400 MG Sodium Chloride 10 ml QSHIFT@10,22 IV 01/31/25 22:00 02/03/25 09:15 10 ML Prochlorperazine Edisylate 10 mg Q4HPRN PRN IV 02/02/25 01:00 02/02/25 12:38 10 MG Ketorolac Tromethamine 15 mg Q6HPRN PRN IV 02/02/25 17:15 02/07/25 17:14 Hold Diagnostic Test (Pha) 1 strip Q6HR 02/03/25 06:00 02/03/25 11:34 1 STRIP Insulin Human Regular Q6HR SC 02/03/25 06:00 Dextrose 50 ml UD PRN IV 02/03/25 02:45 Examination: GENERAL:Normal, HEENT:Normal, NECK:Normal, LUNGS:Normal, CVS:Normal, ABDOMEN:Normal, MSK:Normal, SKIN:Normal, NEURO:Normal, :Normal laboratory and microbiology Laboratory Tests 02/03/25 01:34 Test 02/03/25 01:34 Range/Units Serum Glucose 425 *H 74-106 mg/dL Microbiology Date/Time Source Procedure Growth Status 01/27/25 00:05 Nose MRSA Screen - Final Complete Problem List/Assessment/Plan Problem List/Assessment/Plan #1 left chest pain ?pleuritic: toradol #2 anemia/ gi bleed: ppi, gi eval, hold eliquis/plavix #3 cad s/p cabg s/p pci: per cardiology #4 pvd #5 copd/pulmonary fibrosis #6 htn #7 chronic resp failure #8 h/o cva #9 s/p a flutter/ rvr: coreg #10 s/p pacer advance care planning- full code- time spent 19 mins Plan discussed with: Patient My Orders My Orders Orders - CALE FAGAN MD Procedure Category Date Status Time Full Liq Diet DIET 02/03/25 Verified Lunch Basic Metabolic Panel LAB 02/04/25 Verified 06:00 Complete Blood Count LAB 02/04/25 Verified 06:00 Chest Portable XY 02/04/25 Verified 06:00 Pantoprazole PHA 02/03/25 Verified (Protonix) 12:00 Pantoprazole PHA 02/04/25 Verified (Protonix) 10:00 Dietary Evaluation Review Comments: Continue current POC Expected Outcomes/Goals: To meet >75% estimated needs Fu 3-5 days Date of Service: Feb 03, 2025 Billing Provider: CALE FAGAN MD Common Visit Codes: [id number] INP/OBS CARE(HIGH) CALE FAGAN MD Feb 03, 2025 12:05
[2025-02-03] MEDS: PANTOPRAZOLE 40 MG/10 ML VIAL INJ IV ONE (13:52)
--- NOTE | 2025-02-03 20:52 | DVHPN2 ---
Progress Note - Dictate Date Seen: Feb 03, 2025 Medical Necessity Reason Pt with a Central, PICC or Fol: No Subjective Patient was seen and evaluated in follow up. No acute events overnight. Patient complains of continued nausea and vomiting. Has had multiple bowel movements. Hgb is 7.5 this AM. Creatinine 1.12 with BUN of 28. K 3.4. Na 126. vital signs Vital Sign Date Time Temp Pulse Resp B/P (MAP) Pulse Ox O2 Delivery O2 Flow Rate FiO2 02/03/25 18:51 77 14 98 02/03/25 18:41 Nasal Cannula 3.0 02/03/25 18:41 32 02/03/25 17:00 97.6 141/73 (95) 97.6 Total Intake and Output 02/02/25 02/02/25 02/03/25 15:00 23:00 07:00 Intake Total 200 ml 500 ml 150 ml Balance 200 ml 500 ml 150 ml medications Current Medications Medications Dose Ordered Sig/Romaine Route Start Time Stop Time Status Last Admin Dose Admin Acetaminophen/ Hydrocodone Bitart 1 tab Q4HP PRN PO 01/26/25 15:30 02/03/25 01:53 1 TAB Enoxaparin Sodium 40 mg DAILY SC 01/27/25 10:00 UNV Acetaminophen 650 mg Q6HP PRN PO 01/26/25 15:30 Nitroglycerin 0.4 mg Q5MINP PRN SL 01/26/25 15:30 01/27/25 08:56 0.4 MG Ascorbic Acid 2,000 mg DAILY PO 01/27/25 10:00 UNV Isosorbide Mononitrate 60 mg DAILY PO 01/27/25 10:00 02/02/25 16:47 60 MG Ranolazine 500 mg BID PO 01/26/25 22:00 02/03/25 09:18 500 MG Atorvastatin Calcium 40 mg HS PO 01/26/25 22:00 02/02/25 21:42 40 MG Carvedilol 25 mg TID PO 01/26/25 22:00 02/03/25 05:55 25 MG Albuterol 2.5 mg Q6HWA NEB 01/26/25 18:00 02/03/25 18:41 2.5 MG Ipratropium [place] 0.5 mg Q6HWA NEB 01/26/25 18:00 02/03/25 18:41 0.5 MG Morphine Sulfate 2 mg Q30M PRN IV 01/27/25 12:30 01/27/25 12:31 2 MG Sucralfate 1 gm BID@0600,2200 PO 01/28/25 22:00 02/03/25 05:55 1 GM Docusate Sodium 100 mg BIDPRN PRN PO 01/28/25 13:15 01/30/25 22:15 100 MG Montelukast Sodium 10 mg HS PO 01/29/25 22:00 02/02/25 21:42 10 MG Magnesium Oxide 400 mg DAILY PO 01/31/25 10:00 02/03/25 09:23 400 MG Sodium Chloride 10 ml QSHIFT@10,22 IV 01/31/25 22:00 02/03/25 09:15 10 ML Prochlorperazine Edisylate 10 mg Q4HPRN PRN IV 02/02/25 01:00 02/03/25 18:04 10 MG Diagnostic Test (Pha) 1 strip Q6HR 02/03/25 06:00 02/03/25 18:18 1 STRIP Insulin Human Regular Q6HR SC 02/03/25 06:00 Dextrose 50 ml UD PRN IV 02/03/25 02:45 Pantoprazole Sodium 40 mg DAILY IV 02/04/25 10:00 Metronidazole 100 ml @ 100 mls/hr Q8HR IV 02/03/25 22:00 objective Vitals and nursing notes reviewed. GEN: Healthy appearing, well-developed, NAD. HEENT: NC/AT; MMM. CV: RRR, no m/r/g. LUNGS: CTAB, no w/r/c. ABD: Soft, NT/ND, NBS, no masses or organomegaly. EXT: skin Warm, well perfused. no rashes. No clubbing, cyanosis, or edema. Trace pedal edema. NEURO: Ambulating with no limitations. No focal deficits. laboratory and microbiology Laboratory Tests 02/03/25 01:34 Test 02/03/25 01:34 Range/Units Serum Glucose 425 *H 74-106 mg/dL Problem List Acute kidney injury Chest pain Asthma/COPD CVA Congestive Heart Failure Diabetes mellitus CAD SP CABG X 3 Pulmonary fibrosis 3 L home O2 GERD Hypertension [place] Assessment/Plan Agree with current supportive medical care. Cardiology and GI following. There is concern for possible C.Diff. Stool cultures pending. Daily lab monitoring to include renal function and electrolytes. Electrolyte replacement prn. Diuretics with Lasix 40 mg PO daily. Strict Intake/Output. Home medications as ordered. Protonix 40 mg oral daily. Started on clear liquid diet. Additional plan as per the hospital course. Dietary Evaluation Review Comments: Continue current POC Expected Outcomes/Goals: To meet >75% estimated needs Fu 3-5 days Plan discussed with: Patient, Other (RN) KIMBERLY WERNER DO Feb 03, 2025 20:52
[2025-02-04] VITALS (17 sets, daily range): BP systolic 118–137; BP diastolic 54–76; PULSE 70–91; RESP 16–19; TEMP 96.9–98.5; O2SAT 96–100
--- NOTE | 2025-02-04 06:49 | DVH ---
CHEST RADIOGRAPH Indication: copd Technique: Single frontal view of the chest was obtained COMPARISON: XY CHEST PORTABLE on DOS: 01/31/25, XY CHEST PORTABLE on DOS: 01/26/25, XY CHEST PORTABLE o n DOS: 01/11/25, XY CHEST PORTABLE on DOS: 01/09/25, XY CHEST PORTABLE on DOS: 08/28/24 FINDINGS: Lines and Tubes: Right peripherally inserted central catheter unchanged. Left anterior chest wall ca rdiac pacing device. Lungs: Mildly progressive diffuse increased prominence of the pulmonary vasculature and interstitium. No definite focal consolidation. Suspected small left pleural effusion. No pneumothorax. Cardiomediastinal contours: Unremarkable status post median sternotomy. Atherosclerotic vascular millicent cifications. Bones: Unremarkable IMPRESSION: 1. Mildly progressive diffuse increased prominence of the pulmonary vasculature and interstitium and likely small left pleural effusion. 2. Right PICC.
[2025-02-04 09:24] LABS: Hematocrit 22.0 % (36.0-46.0); Hemoglobin 7.3 g/dL (12.2-16.2); Mean Corpuscular Hemoglobin 29.6 pg (28.0-32.0); Mean Corpuscular Volume 89.1 fL (80.0-100.0); Nucleated Red Blood Cells % 0.0 %
[2025-02-04 09:29] LABS: Sodium 136 mmol/L (136-145)
[2025-02-04 09:30] LABS: Anion Gap 8 (5-15); Carbon Dioxide 31 mmol/L (20-31)
[2025-02-04 09:31] LABS: Calcium 9.1 mg/dL (8.7-10.4)
[2025-02-04 09:35] LABS: Chloride 97 mmol/L (98-107); Potassium 3.5 mmol/L (3.5-5.1)
[2025-02-04 09:36] LABS: BUN/Creatinine Ratio 24.4 (10.0-20.0); Blood Urea Nitrogen 20 mg/dL (9-23); Glucose 117 mg/dL (74-106)
[2025-02-04] MEDS: PANTOPRAZOLE 40 MG/10 ML VIAL INJ IV SCH (10:01)
[2025-02-04] MEDS: AMIODARONE HCL 200 MG TAB PO SCH (11:16)
--- NOTE | 2025-02-04 12:14 | DVHPN2 ---
Progress Note Date Seen: Feb 04, 2025 Medical Necessity Reason Pt with a Central, PICC or Fol: No Subjective Patient reports: No new complaints Review of Systems: HEENT:Normal, CVS:Normal, RESPIRATORY:Normal, GI:Normal, :Normal, MSK:Normal, NEURO:Normal Objective vital signs Vital Sign Date Time Temp Pulse Resp B/P (MAP) Pulse Ox O2 Delivery O2 Flow Rate FiO2 02/04/25 11:43 75 18 99 02/04/25 11:37 Nasal Cannula* 3 32 02/04/25 10:02 130/57 02/04/25 09:00 96.9 96.9 Total Intake and Output 02/03/25 02/03/25 02/04/25 15:00 23:00 07:00 Intake Total 400 ml 700 ml Output Total 325 ml Balance 75 ml 700 ml medications Current Medications Medications Dose Ordered Sig/Romaine Route Start Time Stop Time Status Last Admin Dose Admin Acetaminophen/ Hydrocodone Bitart 1 tab Q4HP PRN PO 01/26/25 15:30 02/03/25 01:53 1 TAB Enoxaparin Sodium 40 mg DAILY SC 01/27/25 10:00 UNV Acetaminophen 650 mg Q6HP PRN PO 01/26/25 15:30 Nitroglycerin 0.4 mg Q5MINP PRN SL 01/26/25 15:30 01/27/25 08:56 0.4 MG Ascorbic Acid 2,000 mg DAILY PO 01/27/25 10:00 UNV Isosorbide Mononitrate 60 mg DAILY PO 01/27/25 10:00 02/04/25 10:02 60 MG Ranolazine 500 mg BID PO 01/26/25 22:00 02/04/25 10:02 500 MG Atorvastatin Calcium 40 mg HS PO 01/26/25 22:00 02/03/25 21:49 40 MG Carvedilol 25 mg TID PO 01/26/25 22:00 02/04/25 05:40 25 MG Albuterol 2.5 mg Q6HWA NEB 01/26/25 18:00 02/04/25 11:37 2.5 MG Ipratropium [place] 0.5 mg Q6HWA NEB 01/26/25 18:00 02/04/25 11:37 0.5 MG Morphine Sulfate 2 mg Q30M PRN IV 01/27/25 12:30 01/27/25 12:31 2 MG Sucralfate 1 gm BID@0600,2200 PO 01/28/25 22:00 02/04/25 05:40 1 GM Docusate Sodium 100 mg BIDPRN PRN PO 01/28/25 13:15 01/30/25 22:15 100 MG Montelukast Sodium 10 mg HS PO 01/29/25 22:00 02/03/25 21:49 10 MG Magnesium Oxide 400 mg DAILY PO 01/31/25 10:00 02/04/25 10:02 400 MG Sodium Chloride 10 ml QSHIFT@10,22 IV 01/31/25 22:00 02/04/25 10:01 10 ML Prochlorperazine Edisylate 10 mg Q4HPRN PRN IV 02/02/25 01:00 02/03/25 18:04 10 MG Diagnostic Test (Pha) 1 strip Q6HR 02/03/25 06:00 02/04/25 11:17 1 STRIP Insulin Human Regular Q6HR SC 02/03/25 06:00 Dextrose 50 ml UD PRN IV 02/03/25 02:45 Pantoprazole Sodium 40 mg DAILY IV 02/04/25 10:00 02/04/25 10:01 40 MG Metronidazole 100 ml @ 100 mls/hr Q8HR IV 02/03/25 22:00 02/04/25 05:40 100 MLS/HR Amiodarone HCl 200 mg BID PO 02/04/25 10:00 02/04/25 11:16 200 MG Examination: GENERAL:Normal, HEENT:Normal, NECK:Normal, LUNGS:Normal, CVS:Normal, ABDOMEN:Normal, MSK:Normal, SKIN:Normal, NEURO:Normal, :Normal laboratory and microbiology Laboratory Tests 02/04/25 09:00 Test 02/04/25 09:00 Range/Units Serum Glucose 117 H 74-106 mg/dL Microbiology Date/Time Source Procedure Growth Status 01/27/25 00:05 Nose MRSA Screen - Final Complete Problem List/Assessment/Plan Problem List/Assessment/Plan #1 left chest pain ?pleuritic: toradol #2 anemia/ gi bleed: ppi, gi eval, hold eliquis/plavix, transfuse #3 cad s/p cabg s/p pci: per cardiology #4 pvd #5 copd/pulmonary fibrosis #6 htn #7 chronic resp failure #8 h/o cva #9 s/p a flutter/ rvr: coreg #10 s/p pacer #11 acute diastolic heart failure: lasix iv #12 diarrhea: check c diff advance care planning- full code- time spent 19 mins Plan discussed with: Patient My Orders My Orders Orders - CALE FAGAN MD Procedure Category Date Status Time Clostridium Difficile LEANN 02/03/25 In Process Toxin 13:19 Packedcell-Noactive BBK 02/04/25 Verified Bleeding 12:07 Type And Screen BBK 02/04/25 Verified 12:07 Administer Blood LESLIE 02/04/25 Verified Products 12:07 Furosemide Injection PHA 02/04/25 Verified (Lasix Injection) 12:15 Potassium Chl [place] PHA 02/04/25 Verified KCL 12:15 Basic Metabolic Panel LAB 02/05/25 Verified 06:00 Complete Blood Count LAB 02/05/25 Verified 06:00 Magnesium LAB 02/05/25 Verified 05:00 B-Type Natriuretic LAB 02/05/25 Verified Peptide 05:00 Dietary Evaluation Review Comments: Continue current POC Expected Outcomes/Goals: To meet >75% estimated needs Fu 3-5 days Date of Service: Feb 04, 2025 Billing Provider: CALE FAGAN MD Common Visit Codes: [id number] INP/OBS CARE(HIGH) CALE FAGAN MD Feb 04, 2025 12:14
[2025-02-04] MEDS: FUROSEMIDE 20 MG/2 ML VIAL IV ONE (13:16)
[2025-02-04] MEDS: POTASSIUM CHLORIDE 40 MEQ, LIDOCAINE 1% (LOCAL ANESTH.) 4 ML in SODIUM CHL 0.9% 250 ML IV ONE (13:47)
--- NOTE | 2025-02-04 14:28 | DVHPN2 ---
Progress Note - Dictate Date Seen: Feb 04, 2025 Medical Necessity Reason Pt with a Central, PICC or Fol: No Subjective Patient seen at bedside resting comfortably Patient had multiple bowel movements over the last two days however this morning she has only had one bowel movement Stool was sent for C diff GI was consulted for Hemoccult-positive stools f On PPI and Carafate for hiatal hernia and gastritis Tolerating soft mechanical diet EGD findings Operative Report DATE OF OPERATION: 01/29/25 PROCEDURE: Upper Endoscopy with biopsy. PREOPERATIVE INDICATION: The patient is a 74 -year-old female undergoing endoscopy for anemia and atypical chest pain POSTOPERATIVE DIAGNOSES: 1. 2-3 cm sliding-type hiatal hernia with slightly irregular squamocolumnar junction no significant erosive esophagitis 2. Mild antral gastritis and minimal duodenitis of the duodenal bulb otherwise normal examination up to the 2nd and 3rd part of the duodenal 3. Extrinsic compression of the mid esophagus likely related to aortic arch vital signs Vital Sign Date Time Temp Pulse Resp B/P (MAP) Pulse Ox O2 Delivery O2 Flow Rate FiO2 02/04/25 14:00 75 115/52 02/04/25 13:00 97.4 18 96 97.4 02/04/25 11:37 Nasal Cannula* 3 32 Total Intake and Output 02/03/25 02/03/25 02/04/25 15:00 23:00 07:00 Intake Total 400 ml 700 ml Output Total 325 ml Balance 75 ml 700 ml medications Current Medications Medications Dose Ordered Sig/Romaine Route Start Time Stop Time Status Last Admin Dose Admin Acetaminophen/ Hydrocodone Bitart 1 tab Q4HP PRN PO 01/26/25 15:30 02/04/25 13:17 1 TAB Enoxaparin Sodium 40 mg DAILY SC 01/27/25 10:00 UNV Acetaminophen 650 mg Q6HP PRN PO 01/26/25 15:30 Nitroglycerin 0.4 mg Q5MINP PRN SL 01/26/25 15:30 01/27/25 08:56 0.4 MG Ascorbic Acid 2,000 mg DAILY PO 01/27/25 10:00 UNV Isosorbide Mononitrate 60 mg DAILY PO 01/27/25 10:00 02/04/25 10:02 60 MG Ranolazine 500 mg BID PO 01/26/25 22:00 02/04/25 10:02 500 MG Atorvastatin Calcium 40 mg HS PO 01/26/25 22:00 02/03/25 21:49 40 MG Carvedilol 25 mg TID PO 01/26/25 22:00 02/04/25 05:40 25 MG Albuterol 2.5 mg Q6HWA NEB 01/26/25 18:00 02/04/25 11:37 2.5 MG Ipratropium [place] 0.5 mg Q6HWA NEB 01/26/25 18:00 02/04/25 11:37 0.5 MG Morphine Sulfate 2 mg Q30M PRN IV 01/27/25 12:30 01/27/25 12:31 2 MG Sucralfate 1 gm BID@0600,2200 PO 01/28/25 22:00 02/04/25 05:40 1 GM Docusate Sodium 100 mg BIDPRN PRN PO 01/28/25 13:15 01/30/25 22:15 100 MG Montelukast Sodium 10 mg HS PO 01/29/25 22:00 02/03/25 21:49 10 MG Magnesium Oxide 400 mg DAILY PO 01/31/25 10:00 02/04/25 10:02 400 MG Sodium Chloride 10 ml QSHIFT@10,22 IV 01/31/25 22:00 02/04/25 10:01 10 ML Prochlorperazine Edisylate 10 mg Q4HPRN PRN IV 02/02/25 01:00 02/04/25 13:02 10 MG Diagnostic Test (Pha) 1 strip Q6HR 02/03/25 06:00 02/04/25 11:17 1 STRIP Insulin Human Regular Q6HR SC 02/03/25 06:00 Dextrose 50 ml UD PRN IV 02/03/25 02:45 Pantoprazole Sodium 40 mg DAILY IV 02/04/25 10:00 02/04/25 10:01 40 MG Metronidazole 100 ml @ 100 mls/hr Q8HR IV 02/03/25 22:00 02/04/25 05:40 100 MLS/HR Amiodarone HCl 200 mg BID PO 02/04/25 10:00 02/04/25 11:16 200 MG objective General: NAD, AAOX3 Chest: lung barton clear to auscultation Heart: RRR, no murmur Abdomen: non-distended, no tenderness to palpation, +BS laboratory and microbiology Laboratory Tests 02/04/25 09:00 Test 02/04/25 09:00 Range/Units Serum Glucose 117 H 74-106 mg/dL Problems(with codes): (1) Leukocytosis (2) Hiatal hernia (3) Weakness (4) UTI (urinary tract infection) Prognosis Plan Patient is going to be transfused 1 unit PRBC has a hemoglobin drifted down to 7.3 Await stool for C diff; patient had moderate WBC in her stool She is currently on IV Flagyl, Protonix and Carafate If the stool for C diff is positive then we will start her on vancomycin and probiotics Supportive care and monitor labs I will be out of town for the rest of the week, if further GI input is required this week please contact my colleague GI physician on-call Dr. Avila Dietary Evaluation Review Comments: Continue current POC Expected Outcomes/Goals: To meet >75% estimated needs Fu 3-5 days Plan discussed with: Patient, Other (Nurse and Dr Verde) SARAHI BARROS MD Feb 04, 2025 14:28
--- NOTE | 2025-02-04 17:12 | DVHPN2 ---
Progress Note - Dictate Date Seen: Feb 04, 2025 Medical Necessity Reason Pt with a Central, PICC or Fol: No vital signs Vital Sign Date Time Temp Pulse Resp B/P (MAP) Pulse Ox O2 Delivery O2 Flow Rate FiO2 02/04/25 16:31 98.0 78 18 128/54 (78) 100 98.0 02/04/25 11:37 Nasal Cannula* 3 32 Total Intake and Output 02/03/25 02/03/25 02/04/25 15:00 23:00 07:00 Intake Total 400 ml 700 ml Output Total 325 ml Balance 75 ml 700 ml medications Current Medications Medications Dose Ordered Sig/Romaine Route Start Time Stop Time Status Last Admin Dose Admin Acetaminophen/ Hydrocodone Bitart 1 tab Q4HP PRN PO 01/26/25 15:30 02/04/25 13:17 1 TAB Enoxaparin Sodium 40 mg DAILY SC 01/27/25 10:00 UNV Acetaminophen 650 mg Q6HP PRN PO 01/26/25 15:30 Nitroglycerin 0.4 mg Q5MINP PRN SL 01/26/25 15:30 01/27/25 08:56 0.4 MG Ascorbic Acid 2,000 mg DAILY PO 01/27/25 10:00 UNV Isosorbide Mononitrate 60 mg DAILY PO 01/27/25 10:00 02/04/25 10:02 60 MG Ranolazine 500 mg BID PO 01/26/25 22:00 02/04/25 10:02 500 MG Atorvastatin Calcium 40 mg HS PO 01/26/25 22:00 02/03/25 21:49 40 MG Carvedilol 25 mg TID PO 01/26/25 22:00 02/04/25 05:40 25 MG Albuterol 2.5 mg Q6HWA NEB 01/26/25 18:00 02/04/25 11:37 2.5 MG Ipratropium [place] 0.5 mg Q6HWA NEB 01/26/25 18:00 02/04/25 11:37 0.5 MG Morphine Sulfate 2 mg Q30M PRN IV 01/27/25 12:30 01/27/25 12:31 2 MG Sucralfate 1 gm BID@0600,2200 PO 01/28/25 22:00 02/04/25 05:40 1 GM Docusate Sodium 100 mg BIDPRN PRN PO 01/28/25 13:15 01/30/25 22:15 100 MG Montelukast Sodium 10 mg HS PO 01/29/25 22:00 02/03/25 21:49 10 MG Magnesium Oxide 400 mg DAILY PO 01/31/25 10:00 02/04/25 10:02 400 MG Sodium Chloride 10 ml QSHIFT@10,22 IV 01/31/25 22:00 02/04/25 10:01 10 ML Prochlorperazine Edisylate 10 mg Q4HPRN PRN IV 02/02/25 01:00 02/04/25 13:02 10 MG Diagnostic Test (Pha) 1 strip Q6HR 02/03/25 06:00 02/04/25 11:17 1 STRIP Insulin Human Regular Q6HR SC 02/03/25 06:00 Dextrose 50 ml UD PRN IV 02/03/25 02:45 Pantoprazole Sodium 40 mg DAILY IV 02/04/25 10:00 02/04/25 10:01 40 MG Metronidazole 100 ml @ 100 mls/hr Q8HR IV 02/03/25 22:00 02/04/25 05:40 100 MLS/HR Amiodarone HCl 200 mg BID PO 02/04/25 10:00 02/04/25 11:16 200 MG laboratory and microbiology Laboratory Tests 02/04/25 09:00 Test 02/04/25 09:00 Range/Units Serum Glucose 117 H 74-106 mg/dL Assessment/Plan Had EGD and found to have Hiatal Hernia Had diarrhea and some GI bleeding Feels better today No chest pain Getting PRBC transfusion for GI bleeding (had Melanotic stool today) Eliquis and Plavix on hold Tele reveals sinus rhythm 74-year-old female presented with chest discomfort/productive cough/nasal congestion and abdominal pain. Chest pains have been pleuritic type. Cardiology was involved for cardiac aspects of care. Does have baseline history of coronary artery disease and status post bypass surgery. Is known to have abnormal nuclear stress test and the patient had previously decided to manage it medically. Patient had right and left heart catheterization and BRAD earlier this month. Since admission, serial troponin has been negative. Lying comfortably flat in bed. No JVD. pink mucosa. Lungs reveal scattered rhonchi. Cardiac: Regular, no thrills/murmur. Abdomen is soft. No hepatomegaly. Bowel sounds positive. Lower extremities do not reveal edema. Dorsalis pedis is 2+ bilateral Past medical history includes diabetes mellitus, hyperlipidemia, hypertension, diastolic heart failure, peripheral artery disease, GERD, anxiety, anemia, asthma, coronary artery disease, status post CABG and PCI, status post pacemaker implantation ([employer]), status post old CVA, paroxysmal atrial flutter (on Eliquis), COPD on home oxygen, fibromyalgia, pulmonary hypertension, history of poor functional status, history of GI bleeding, pulmonary fibrosis, hiatal hernia, ex-smoker, status post gold cholecystectomy/hysterectomy. Is known to have closed grafts for CABG. Has had high risk PCI/left main in [facility] (few years back). Does have history of abnormal nuclear stress test and the plan has been to manage her medically. Has been kept on Eliquis and Plavix as outpatient. She is ex-smoker. Left heart catheterization revealed multivessel coronary artery disease. SVG nourishing 1 of the ramus intermedius was diseased but the decision was to manage it medically (ramus intermedius had good flow from patent left main (left main was stented before). Has been offered to go for Watchman device as outpatient. Echocardiogram of January 09, 2023 revealed LVEF of 55 to 60%, mild concentric left ventricular hypertrophy, no wall motion abnormality, mild biatrial enlargement, pacing wire in right-sided chambers, mild to moderate aortic insufficiency, mild mitral regurgitation, mild to moderate tricuspid regurgitation and right ventricular systolic pressure of 35 mmHg Echocardiogram of March 07, 2023 had revealed ejection fraction of 55 to 60%, mild concentric left ventricular hypertrophy, mild AI/MR/PI, mild biatrial enlargement, pacemaker wire in the right-sided chambers and right ventricular systolic pressure of 34 mmHg Echocardiogram of September 06, 2023 revealed ejection fraction of 55% and pacemaker in right-sided chambers Echocardiogram of December 26, 2023 had reported ejection fraction of 55-60%, no wall motion abnormality, [id number] aortic insufficiency, mild MR, moderate TR and right ventricular systolic pressure 42 mm Hg Echocardiogram of August 30, 2024 reported ejection fraction of 55-60%, no wall motion abnormality, mild biatrial enlargement, pacemaker in the right-sided chambers, mild AI/MR and moderate tricuspid regurgitation. Right ventricular systolic pressure was assessed at 41 mm Hg. Echocardiogram of December 20, 2024 (performed in the office) revealed ejection fraction of 60-65%, mild concentric left ventricular hypertrophy, pseudo normal LV filling, mild biatrial enlargement, mild right ventricular enlargement with good systolic function, moderate aortic insufficiency, aortic sclerosis with no stenosis, mild mitral annular calcification, [id number]-et-[id number] MR/TR and right ventricular systolic pressure of 53 mm Hg. Echocardiogram of January 10, 2025 revealed mild concentric left ventricular hypertrophy, ejection fraction of 60-65%, pseudo normal LV filling, [id number] aortic insufficiency, mild mitral regurgitation, moderate tricuspid regurgitation and right ventricular systolic pressure of 67 mm Hg. BRAD of January 13, 2025 revealed no significant valvular disease Right and left heart catheterization of January 13, 2025 revealed multivessel coronary artery disease LVEF of around 50%; Apical aneurysm; Increased LVEDP (19 mm Hg); No pulmonary hypertension; Patent left main stent into LCX (dominant vessel) with no significant disease; Proximal LAD was DYE WEIGHER with minor parallel collaterals. LAD was a diffusely diseased vessel with areas of focal aneurysm; Presence of 2 ramus intermedius; One of the ramus intermedius is with mild disease; Second ramus: Relatively small vessel with mild disease. There was SVG 'also' nourishing it. SVG itself had ostial and middle SVG section disease (decision was made to manage it medically); DANIELLE was atretic but patent; There was 2 other SVG's which were DYE WEIGHER at ostium and suggestion was for medical therapy WBC: 7.9 - 4.1 - 5.3 - 6.0 - 5.9 - 28.7 - 18.2 - 13.3 Hemoglobin: 8.4 - 7.7 - 8.1 - 8.0 - 8.9 - 9.8 - 7.5 - 7.3 Creatinine: 0.64 - 0.62 - 0.90 - 0.81 - 1.18 - 1.12 - 0.82 Potassium: 3.8 - 3.7 - 3.6 - 3.8 - 3.9 - 3.4 - 3.5 Troponin (high sensitive): 4 - 3 Stool OB: positive Chest x-ray revealed: 1. Improvement in left lung base consolidation since prior. This could be improvement in atelectasis or pneumonia. 2. Mild cardiomegaly. Prior median sternotomy and CABG. 3. Diffuse reticular and interstitial opacities of the lungs likely related to known fibrosis. Repeat chest xry reported: IMPRESSION: Interval placement of right PICC with tip in appropriate position. Repeat chest xry revealed: IMPRESSION: 1. Mildly progressive diffuse increased prominence of the pulmonary vasculature and interstitium and likely small left pleural effusion. 2. Right PICC. CT of chest revealed: IMPRESSION: Stable changes of moderate to severe pulmonary fibrosis. Cardiomegaly. EKG revealed sinus rhythm with nonspecific ST-T changes. Later revealed atrial flutter with block Telemetry reveals sinus rhythm and occasions of paced rhythm. Later, ongoing atrial flutter with variable block. Later: NSR Patient is a 74-year-old female who presented with atypical chest discomfort/productive cough/nasal congestion/abdominal pain for few days. Chest pain has been pleuritic. Acute coronary syndrome is not considered. Serial high sensitive troponin has been negative. It is of note that the patient had right and left heart catheterization earlier this month and the result pointed toward medical management. s/p EGD: Hiatal Hernia. Found to have Atrial flutter with variable block and started on Amio drip. Atypical chest pain, rule out component of Pericarditis. Will empirically start Colchicine. Ongoing atrial flutter. On IV Amiodarone. Was told that if IV amiodarone does not work, (in few days) may need / suggest for BRAD/Cardioversion (She herself is against it at this point). Converted to sinus rhythm (no need for Cardioversion). PRBC transfusion for GI bleeding. Secondary to GI bleeding (in need of PRBC transfusion): Plavix and Eliquis are on hold. Chest discomfort, atypical Pleuritic chest pain COPD exacerbation Coronary artery disease, status post CABG/PCI Paroxysmal atrial flutter (on Eliquis as outpatient) COPD/Emphysema Pulmonary fibrosis Pulmonary hypertension, history of Chronic diastolic heart failure Status post pacemaker Hypokalemia Paroxysmal atrial flutter with RVR Hiatal Hernia Sepsis Diarrhea GI bleeding, significant, s/p PRBC transfusion Cardiac suggestions for management: Manage on telemetry Fluid resuscitation Follow-up electrolytes and kidney function and correct abnormalities, keep potassium above 4 magnesium above 2 On Oral Amio: 200 mg BID. Secondary to GI bleeding (in need of PRBC transfusion): Plavix and Eliquis are on hold. Hold lasix Optimized medical therapy senior living continuation of full anticoagulation for history of paroxysmal atrial flutter is suggested (on Eliquis). terminal carman continuation of Plavix (CAD h/o Left Main stenting) is suggested. Antianginal therapy Continuation of Statin/Ranexa/Imdur/Coreg is suggested Further evaluation and management depends on the above and clinical course A total of 55 minutes was spent reviewing the patient record, examining the patient, making a diagnostic and therapeutic plan, discussing this plan with medical personnel, following up on diagnostic studies and following the patient for clinical stability excluding any and all procedures. At least 50% of this time was spent in direct, vobt-hw-rliy contact. Thank you for allowing me to participate in this patient's care. Further recommendations will depend on patient's clinical course. Please do not hesitate to contact me if you have any questions or concerns. This medical document was created using electronic medical record system with Palt[employer] computerized dictation system. Although this document has been carefully reviewed, there may still be some phonetic and typographical errors. These areas are purely typographical due to the imperfection of the software programs, and do not reflect any compromise in the patient's medical care. Dietary Evaluation Review Comments: Continue current POC Expected Outcomes/Goals: To meet >75% estimated needs Fu 3-5 days Plan discussed with: Patient, Other (nurse) AJAY SMALLWOOD MD Feb 04, 2025 17:12
--- NOTE | 2025-02-04 20:39 | DVHPN2 ---
Progress Note - Dictate Date Seen: Feb 04, 2025 Medical Necessity Reason Pt with a Central, PICC or Fol: No Subjective Patient was seen and evaluated in follow up. No acute events overnight. Patient reports having one BM today. No pain or discomfort. Tolerating diet. Labs are stable. vital signs Vital Sign Date Time Temp Pulse Resp B/P (MAP) Pulse Ox O2 Delivery O2 Flow Rate FiO2 02/04/25 16:53 98.3 70 16 127/57 98.3 02/04/25 16:31 100 02/04/25 11:37 Nasal Cannula* 3 32 Total Intake and Output 02/03/25 02/03/25 02/04/25 15:00 23:00 07:00 Intake Total 400 ml 700 ml Output Total 325 ml Balance 75 ml 700 ml medications Current Medications Medications Dose Ordered Sig/Romaine Route Start Time Stop Time Status Last Admin Dose Admin Enoxaparin Sodium 40 mg DAILY SC 01/27/25 10:00 UNV Acetaminophen 650 mg Q6HP PRN PO 01/26/25 15:30 Nitroglycerin 0.4 mg Q5MINP PRN SL 01/26/25 15:30 01/27/25 08:56 0.4 MG Ascorbic Acid 2,000 mg DAILY PO 01/27/25 10:00 UNV Isosorbide Mononitrate 60 mg DAILY PO 01/27/25 10:00 02/04/25 10:02 60 MG Ranolazine 500 mg BID PO 01/26/25 22:00 02/04/25 10:02 500 MG Atorvastatin Calcium 40 mg HS PO 01/26/25 22:00 02/03/25 21:49 40 MG Carvedilol 25 mg TID PO 01/26/25 22:00 02/04/25 05:40 25 MG Albuterol 2.5 mg Q6HWA NEB 01/26/25 18:00 02/04/25 11:37 2.5 MG Ipratropium [place] 0.5 mg Q6HWA NEB 01/26/25 18:00 02/04/25 11:37 0.5 MG Morphine Sulfate 2 mg Q30M PRN IV 01/27/25 12:30 01/27/25 12:31 2 MG Sucralfate 1 gm BID@0600,2200 PO 01/28/25 22:00 02/04/25 05:40 1 GM Docusate Sodium 100 mg BIDPRN PRN PO 01/28/25 13:15 01/30/25 22:15 100 MG Montelukast Sodium 10 mg HS PO 01/29/25 22:00 02/03/25 21:49 10 MG Magnesium Oxide 400 mg DAILY PO 01/31/25 10:00 02/04/25 10:02 400 MG Sodium Chloride 10 ml QSHIFT@10,22 IV 01/31/25 22:00 02/04/25 10:01 10 ML Prochlorperazine Edisylate 10 mg Q4HPRN PRN IV 02/02/25 01:00 02/04/25 13:02 10 MG Diagnostic Test (Pha) 1 strip Q6HR 02/03/25 06:00 02/04/25 18:07 1 STRIP Insulin Human Regular Q6HR SC 02/03/25 06:00 Dextrose 50 ml UD PRN IV 02/03/25 02:45 Pantoprazole Sodium 40 mg DAILY IV 02/04/25 10:00 02/04/25 10:01 40 MG Metronidazole 100 ml @ 100 mls/hr Q8HR IV 02/03/25 22:00 02/04/25 17:56 100 MLS/HR Amiodarone HCl 200 mg BID PO 02/04/25 10:00 02/04/25 11:16 200 MG Furosemide 20 mg DAILY PO 02/05/25 10:00 objective Vitals and nursing notes reviewed. GEN: Healthy appearing, well-developed, NAD. HEENT: NC/AT; MMM. CV: RRR, no m/r/g. LUNGS: CTAB, no w/r/c. ABD: Soft, NT/ND, NBS, no masses or organomegaly. EXT: skin Warm, well perfused. no rashes. No clubbing, cyanosis, or edema. Trace pedal edema. NEURO: Ambulating with no limitations. No focal deficits. laboratory and microbiology Laboratory Tests 02/04/25 09:00 Test 02/04/25 09:00 Range/Units Serum Glucose 117 H 74-106 mg/dL Problem List Acute kidney injury Chest pain Asthma/COPD CVA Congestive Heart Failure Diabetes mellitus CAD SP CABG X 3 Pulmonary fibrosis 3 L home O2 GERD Hypertension NC Assessment/Plan Agree with current supportive medical care. Cardiology and GI following. Stool was sent for C.Diff. Daily lab monitoring to include renal function and electrolytes. Electrolyte replacement prn. Diuretics with Lasix decreased to 20 mg daily. Strict Intake/Output. Home medications as ordered. Protonix 40 mg oral daily. Started on soft mechanical diet. Additional plan as per the hospital course. Dietary Evaluation Review Comments: Continue current POC Expected Outcomes/Goals: To meet >75% estimated needs Fu 3-5 days Plan discussed with: Patient, Other (RN) CC Plasma Assessment Blood Product Administration S: [id number] KIMBERLY WERNER DO Feb 04, 2025 20:39
[2025-02-05] VITALS (15 sets, daily range): BP systolic 101–125; BP diastolic 54–71; PULSE 78–111; RESP 16–20; TEMP 97.4–98.6; O2SAT 96–100
[2025-02-05 06:43] LABS: Hematocrit 27.6 % (36.0-46.0); Hemoglobin 9.1 g/dL (12.2-16.2); Mean Corpuscular Hemoglobin 29.1 pg (28.0-32.0); Mean Corpuscular Volume 88.4 fL (80.0-100.0); Nucleated Red Blood Cells % 0.0 %
--- NOTE | 2025-02-05 06:47 | DVHPN2 ---
Progress Note - Dictate Date Seen: Feb 05, 2025 Medical Necessity Reason Pt with a Central, PICC or Fol: No vital signs Vital Sign Date Time Temp Pulse Resp B/P (MAP) Pulse Ox O2 Delivery O2 Flow Rate FiO2 02/05/25 06:38 100 Nasal Cannula* 3 32 02/05/25 06:38 99 18 02/05/25 06:05 101/64 02/05/25 05:00 98.0 98.0 Total Intake and Output 02/04/25 02/04/25 02/05/25 15:00 23:00 07:00 Intake Total 1698 ml 150 ml Output Total 700 ml Balance 998 ml 150 ml medications Current Medications Medications Dose Ordered Sig/Romaine Route Start Time Stop Time Status Last Admin Dose Admin Enoxaparin Sodium 40 mg DAILY SC 01/27/25 10:00 UNV Acetaminophen 650 mg Q6HP PRN PO 01/26/25 15:30 Nitroglycerin 0.4 mg Q5MINP PRN SL 01/26/25 15:30 01/27/25 08:56 0.4 MG Ascorbic Acid 2,000 mg DAILY PO 01/27/25 10:00 UNV Isosorbide Mononitrate 60 mg DAILY PO 01/27/25 10:00 02/04/25 10:02 60 MG Ranolazine 500 mg BID PO 01/26/25 22:00 02/04/25 21:47 500 MG Atorvastatin Calcium 40 mg HS PO 01/26/25 22:00 02/04/25 21:47 40 MG Carvedilol 25 mg TID PO 01/26/25 22:00 02/05/25 06:05 25 MG Albuterol 2.5 mg Q6HWA NEB 01/26/25 18:00 02/05/25 06:36 2.5 MG Ipratropium [place] 0.5 mg Q6HWA NEB 01/26/25 18:00 02/05/25 06:36 0.5 MG Morphine Sulfate 2 mg Q30M PRN IV 01/27/25 12:30 01/27/25 12:31 2 MG Sucralfate 1 gm BID@0600,2200 PO 01/28/25 22:00 02/05/25 06:03 1 GM Docusate Sodium 100 mg BIDPRN PRN PO 01/28/25 13:15 01/30/25 22:15 100 MG Montelukast Sodium 10 mg HS PO 01/29/25 22:00 02/04/25 21:47 10 MG Magnesium Oxide 400 mg DAILY PO 01/31/25 10:00 02/04/25 10:02 400 MG Sodium Chloride 10 ml QSHIFT@10,22 IV 01/31/25 22:00 02/04/25 21:45 10 ML Prochlorperazine Edisylate 10 mg Q4HPRN PRN IV 02/02/25 01:00 02/04/25 13:02 10 MG Diagnostic Test (Pha) 1 strip Q6HR 02/03/25 06:00 02/05/25 06:00 1 STRIP Insulin Human Regular Q6HR SC 02/03/25 06:00 Dextrose 50 ml UD PRN IV 02/03/25 02:45 Pantoprazole Sodium 40 mg DAILY IV 02/04/25 10:00 02/04/25 10:01 40 MG Metronidazole 100 ml @ 100 mls/hr Q8HR IV 02/03/25 22:00 02/05/25 06:03 100 MLS/HR Amiodarone HCl 200 mg BID PO 02/04/25 10:00 02/04/25 21:46 200 MG Furosemide 20 mg DAILY PO 02/05/25 10:00 laboratory and microbiology Test 02/05/25 06:04 Range/Units Serum Glucose Pending Assessment/Plan Had EGD and found to have Hiatal Hernia Had diarrhea and some GI bleeding No chest pain s/p PRBC transfusion for GI bleeding (had Melanotic stool today) Eliquis and Plavix on hold Tele reveals sinus rhythm 74-year-old female presented with chest discomfort/productive cough/nasal congestion and abdominal pain. Chest pains have been pleuritic type. Cardiology was involved for cardiac aspects of care. Does have baseline history of coronary artery disease and status post bypass surgery. Is known to have abnormal nuclear stress test and the patient had previously decided to manage it medically. Patient had right and left heart catheterization and BRAD earlier this month. Since admission, serial troponin has been negative. Lying comfortably flat in bed. No JVD. pink mucosa. Lungs reveal scattered rhonchi. Cardiac: Regular, no thrills/murmur. Abdomen is soft. No hepatomegaly. Bowel sounds positive. Lower extremities do not reveal edema. Dorsalis pedis is 2+ bilateral Past medical history includes diabetes mellitus, hyperlipidemia, hypertension, diastolic heart failure, peripheral artery disease, GERD, anxiety, anemia, asthma, coronary artery disease, status post CABG and PCI, status post pacemaker implantation ([employer]), status post old CVA, paroxysmal atrial flutter (on Eliquis), COPD on home oxygen, fibromyalgia, pulmonary hypertension, history of poor functional status, history of GI bleeding, pulmonary fibrosis, hiatal hernia, ex-smoker, status post gold cholecystectomy/hysterectomy. Is known to have closed grafts for CABG. Has had high risk PCI/left main in [facility] (few years back). Does have history of abnormal nuclear stress test and the plan has been to manage her medically. Has been kept on Eliquis and Plavix as outpatient. She is ex-smoker. Left heart catheterization revealed multivessel coronary artery disease. SVG nourishing 1 of the ramus intermedius was diseased but the decision was to manage it medically (ramus intermedius had good flow from patent left main (left main was stented before). Has been offered to go for Watchman device as outpatient. Echocardiogram of January 09, 2023 revealed LVEF of 55 to 60%, mild concentric left ventricular hypertrophy, no wall motion abnormality, mild biatrial enlargement, pacing wire in right-sided chambers, mild to moderate aortic insufficiency, mild mitral regurgitation, mild to moderate tricuspid regurgitation and right ventricular systolic pressure of 35 mmHg Echocardiogram of March 07, 2023 had revealed ejection fraction of 55 to 60%, mild concentric left ventricular hypertrophy, mild AI/MR/PI, mild biatrial enlargement, pacemaker wire in the right-sided chambers and right ventricular systolic pressure of 34 mmHg Echocardiogram of September 06, 2023 revealed ejection fraction of 55% and pacemaker in right-sided chambers Echocardiogram of December 26, 2023 had reported ejection fraction of 55-60%, no wall motion abnormality, [id number] aortic insufficiency, mild MR, moderate TR and right ventricular systolic pressure 42 mm Hg Echocardiogram of August 30, 2024 reported ejection fraction of 55-60%, no wall motion abnormality, mild biatrial enlargement, pacemaker in the right-sided chambers, mild AI/MR and moderate tricuspid regurgitation. Right ventricular systolic pressure was assessed at 41 mm Hg. Echocardiogram of December 20, 2024 (performed in the office) revealed ejection fraction of 60-65%, mild concentric left ventricular hypertrophy, pseudo normal LV filling, mild biatrial enlargement, mild right ventricular enlargement with good systolic function, moderate aortic insufficiency, aortic sclerosis with no stenosis, mild mitral annular calcification, [id number] MR/TR and right ventricular systolic pressure of 53 mm Hg. Echocardiogram of January 10, 2025 revealed mild concentric left ventricular hypertrophy, ejection fraction of 60-65%, pseudo normal LV filling, [id number] aortic insufficiency, mild mitral regurgitation, moderate tricuspid regurgitation and right ventricular systolic pressure of 67 mm Hg. BRAD of January 13, 2025 revealed no significant valvular disease Right and left heart catheterization of January 13, 2025 revealed multivessel coronary artery disease LVEF of around 50%; Apical aneurysm; Increased LVEDP (19 mm Hg); No pulmonary hypertension; Patent left main stent into LCX (dominant vessel) with no significant disease; Proximal LAD was LOCKSTITCH TOPSTITCHER with minor parallel collaterals. LAD was a diffusely diseased vessel with areas of focal aneurysm; Presence of 2 ramus intermedius; One of the ramus intermedius is with mild disease; Second ramus: Relatively small vessel with mild disease. There was SVG 'also' nourishing it. SVG itself had ostial and middle SVG section disease (decision was made to manage it medically); DANIELLE was atretic but patent; There was 2 other SVG's which were LOCKSTITCH TOPSTITCHER at ostium and suggestion was for medical therapy WBC: 7.9 - 4.1 - 5.3 - 6.0 - 5.9 - 28.7 - 18.2 - 13.3 - 8.6 Hemoglobin: 8.4 - 7.7 - 8.1 - 8.0 - 8.9 - 9.8 - 7.5 - 7.3 - 9.1 (s/p PRBC transfusion) Creatinine: 0.64 - 0.62 - 0.90 - 0.81 - 1.18 - 1.12 - 0.82 today's pending Potassium: 3.8 - 3.7 - 3.6 - 3.8 - 3.9 - 3.4 - 3.5 today's pending Troponin (high sensitive): 4 - 3 BNP: pending Stool OB: positive Chest x-ray revealed: 1. Improvement in left lung base consolidation since prior. This could be improvement in atelectasis or pneumonia. 2. Mild cardiomegaly. Prior median sternotomy and CABG. 3. Diffuse reticular and interstitial opacities of the lungs likely related to known fibrosis. Repeat chest xry reported: IMPRESSION: Interval placement of right PICC with tip in appropriate position. Repeat chest xry revealed: IMPRESSION: 1. Mildly progressive diffuse increased prominence of the pulmonary vasculature and interstitium and likely small left pleural effusion. 2. Right PICC. CT of chest revealed: IMPRESSION: Stable changes of moderate to severe pulmonary fibrosis. Cardiomegaly. EKG revealed sinus rhythm with nonspecific ST-T changes. Later revealed atrial flutter with block Telemetry reveals sinus rhythm and occasions of paced rhythm. Later, ongoing atrial flutter with variable block. Later: NSR Patient is a 74-year-old female who presented with atypical chest discomfort/productive cough/nasal congestion/abdominal pain for few days. Chest pain has been pleuritic. Acute coronary syndrome is not considered. Serial high sensitive troponin has been negative. It is of note that the patient had right and left heart catheterization earlier this month and the result pointed toward medical management. s/p EGD: Hiatal Hernia. Found to have Atrial flutter with variable block and started on Amio drip. Atypical chest pain, rule out component of Pericarditis. Will empirically start Colchicine. Ongoing atrial flutter. On IV Amiodarone. Was told that if IV amiodarone does not work, (in few days) may need / suggest for BRAD/Cardioversion (She herself is against it at this point). Converted to sinus rhythm (no need for Cardioversion). PRBC transfusion for GI bleeding. Secondary to GI bleeding (in need of PRBC transfusion): Plavix and Eliquis are on hold. Chest discomfort, atypical Pleuritic chest pain COPD exacerbation Coronary artery disease, status post CABG/PCI Paroxysmal atrial flutter (on Eliquis as outpatient) COPD/Emphysema Pulmonary fibrosis Pulmonary hypertension, history of Chronic diastolic heart failure Status post pacemaker Hypokalemia Paroxysmal atrial flutter with RVR Hiatal Hernia Sepsis Diarrhea GI bleeding, significant, s/p PRBC transfusion Cardiac suggestions for management: Manage on telemetry Fluid resuscitation Follow-up electrolytes and kidney function and correct abnormalities, keep potassium above 4 magnesium above 2 On Oral Amio: 200 mg BID. Secondary to GI bleeding (in need of PRBC transfusion): Plavix and Eliquis are o n hold. When stable, will suggest to start low dose Eliquis first Optimized medical therapy residential continuation of full anticoagulation for history of paroxysmal atrial flutter is suggested (on Eliquis). 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 Antianginal therapy Continuation of Statin/Ranexa/Imdur/Coreg is suggested Further evaluation and management depends on the above and clinical course A total of 55 minutes was spent reviewing the patient record, examining the patient, making a diagnostic and therapeutic plan, discussing this plan with medical personnel, following up on diagnostic studies and following the patient for clinical stability excluding any and all procedures. At least 50% of this time was spent in direct, itwu-zh-amey contact. Thank you for allowing me to participate in this patient's care. Further recommendations will depend on patient's clinical course. Please do not hesitate to contact me if you have any questions or concerns. This medical document was created using electronic medical record system with [employer] computerized dictation system. Although this document has been carefully reviewed, there may still be some phonetic and typographical errors. These areas are purely typographical due to the imperfection of the software programs, and do not reflect any compromise in the patient's medical care. Dietary Evaluation Review Comments: Continue current POC Expected Outcomes/Goals: To meet >75% estimated needs Fu 3-5 days Plan discussed with: Patient, Other (nurse) CC Plasma Assessment Blood Product Administration S: [id number] AJAY SMALLWOOD MD Feb 05, 2025 06:47
[2025-02-05 06:53] LABS: Anion Gap 8 (5-15); Carbon Dioxide 30 mmol/L (20-31); Chloride 101 mmol/L (98-107); Potassium 3.8 mmol/L (3.5-5.1); Sodium 139 mmol/L (136-145)
[2025-02-05 06:59] LABS: BUN/Creatinine Ratio 17.4 (10.0-20.0); Blood Urea Nitrogen 12 mg/dL (9-23); Glucose 84 mg/dL (74-106); Magnesium 2.1 mg/dL (1.6-2.6)
[2025-02-05 07:03] LABS: Calcium 8.6 mg/dL (8.7-10.4)
[2025-02-05] MEDS: FUROSEMIDE 20 MG TAB PO SCH (10:00)
--- NOTE | 2025-02-05 13:49 | DVHPN2 ---
Progress Note Date Seen: Feb 05, 2025 Medical Necessity Reason Pt with a Central, PICC or Fol: No Subjective Patient reports: No new complaints Review of Systems: HEENT:Normal, CVS:Normal, RESPIRATORY:Normal, GI:Normal, :Normal, MSK:Normal, NEURO:Normal Objective vital signs Vital Sign Date Time Temp Pulse Resp B/P (MAP) Pulse Ox O2 Delivery O2 Flow Rate FiO2 02/05/25 11:55 92 18 100 02/05/25 11:50 Nasal Cannula* 3 32 02/05/25 09:25 120/69 02/05/25 08:53 98.6 98.6 Total Intake and Output 02/04/25 02/04/25 02/05/25 15:00 23:00 07:00 Intake Total 1698 ml 150 ml Output Total 700 ml Balance 998 ml 150 ml medications Current Medications Medications Dose Ordered Sig/Romaine Route Start Time Stop Time Status Last Admin Dose Admin Enoxaparin Sodium 40 mg DAILY SC 01/27/25 10:00 UNV Acetaminophen 650 mg Q6HP PRN PO 01/26/25 15:30 Nitroglycerin 0.4 mg Q5MINP PRN SL 01/26/25 15:30 01/27/25 08:56 0.4 MG Ascorbic Acid 2,000 mg DAILY PO 01/27/25 10:00 UNV Isosorbide Mononitrate 60 mg DAILY PO 01/27/25 10:00 02/05/25 09:25 60 MG Ranolazine 500 mg BID PO 01/26/25 22:00 02/05/25 09:24 500 MG Atorvastatin Calcium 40 mg HS PO 01/26/25 22:00 02/04/25 21:47 40 MG Carvedilol 25 mg TID PO 01/26/25 22:00 02/05/25 06:05 25 MG Albuterol 2.5 mg Q6HWA NEB 01/26/25 18:00 02/05/25 11:50 2.5 MG Ipratropium [place] 0.5 mg Q6HWA NEB 01/26/25 18:00 02/05/25 11:50 0.5 MG Morphine Sulfate 2 mg Q30M PRN IV 01/27/25 12:30 01/27/25 12:31 2 MG Sucralfate 1 gm BID@0600,2200 PO 01/28/25 22:00 02/05/25 06:03 1 GM Docusate Sodium 100 mg BIDPRN PRN PO 01/28/25 13:15 01/30/25 22:15 100 MG Montelukast Sodium 10 mg HS PO 01/29/25 22:00 02/04/25 21:47 10 MG Magnesium Oxide 400 mg DAILY PO 01/31/25 10:00 02/05/25 09:24 400 MG Sodium Chloride 10 ml QSHIFT@10,22 IV 01/31/25 22:00 02/05/25 10:00 10 ML Prochlorperazine Edisylate 10 mg Q4HPRN PRN IV 02/02/25 01:00 02/04/25 13:02 10 MG Diagnostic Test (Pha) 1 strip Q6HR 02/03/25 06:00 02/05/25 12:28 1 STRIP Insulin Human Regular Q6HR SC 02/03/25 06:00 Dextrose 50 ml UD PRN IV 02/03/25 02:45 Pantoprazole Sodium 40 mg DAILY IV 02/04/25 10:00 02/05/25 09:25 40 MG Metronidazole 100 ml @ 100 mls/hr Q8HR IV 02/03/25 22:00 02/05/25 06:03 100 MLS/HR Amiodarone HCl 200 mg BID PO 02/04/25 10:00 02/05/25 09:24 200 MG Furosemide 20 mg DAILY PO 02/05/25 10:00 Examination: GENERAL:Normal, HEENT:Normal, NECK:Normal, LUNGS:Normal, CVS:Normal, ABDOMEN:Normal, MSK:Normal, SKIN:Normal, NEURO:Normal, :Normal laboratory and microbiology Laboratory Tests 02/05/25 06:04 Test 02/05/25 06:04 Range/Units Serum Glucose 84 74-106 mg/dL Microbiology Date/Time Source Procedure Growth Status 01/27/25 00:05 Nose MRSA Screen - Final Complete Problem List/Assessment/Plan Problem List/Assessment/Plan #1 left chest pain ?pleuritic: toradol #2 anemia/ gi bleed: ppi, gi eval, hold eliquis/plavix, transfuse #3 cad s/p cabg s/p pci: per cardiology #4 pvd #5 copd/pulmonary fibrosis #6 htn #7 chronic resp failure #8 h/o cva #9 s/p a flutter/ rvr: coreg #10 s/p pacer #11 acute diastolic heart failure: lasix iv #12 diarrhea: check c diff advance care planning- full code- time spent 19 mins Plan discussed with: Patient Dietary Evaluation Review Comments: Continue current POC Expected Outcomes/Goals: To meet >75% estimated needs Fu 3-5 days Date of Service: Feb 05, 2025 Billing Provider: CALE FAGAN MD Common Visit Codes: [id number] INP/OBS CARE(HIGH) CC Plasma Assessment Blood Product Administration S: [id number] CALE FAGAN MD Feb 05, 2025 13:49
[2025-02-05] MEDS: metroNIDAZOLE 500 MG TAB PO SCH (15:12)
[2025-02-05] MEDS: HYDROcodone-ACET 5/325MG TAB PO PRN (15:16)
--- NOTE | 2025-02-05 20:31 | DVHPN2 ---
Progress Note - Dictate Date Seen: Feb 05, 2025 Medical Necessity Reason Pt with a Central, PICC or Fol: No Subjective Patient was seen and evaluated in follow up. No acute events overnight. No new complaints. Renal function labs are stable. vital signs Vital Sign Date Time Temp Pulse Resp B/P (MAP) Pulse Ox O2 Delivery O2 Flow Rate FiO2 02/05/25 18:55 109 20 99 02/05/25 18:49 Nasal Cannula 3.0 02/05/25 18:49 32 02/05/25 16:27 98.4 125/59 (81) 98.4 Total Intake and Output 02/04/25 02/04/25 02/05/25 15:00 23:00 07:00 Intake Total 1698 ml 150 ml Output Total 700 ml Balance 998 ml 150 ml medications Current Medications Medications Dose Ordered Sig/Romaine Route Start Time Stop Time Status Last Admin Dose Admin Enoxaparin Sodium 40 mg DAILY SC 01/27/25 10:00 UNV Acetaminophen 650 mg Q6HP PRN PO 01/26/25 15:30 Nitroglycerin 0.4 mg Q5MINP PRN SL 01/26/25 15:30 01/27/25 08:56 0.4 MG Ascorbic Acid 2,000 mg DAILY PO 01/27/25 10:00 UNV Isosorbide Mononitrate 60 mg DAILY PO 01/27/25 10:00 02/05/25 09:25 60 MG Ranolazine 500 mg BID PO 01/26/25 22:00 02/05/25 09:24 500 MG Atorvastatin Calcium 40 mg HS PO 01/26/25 22:00 02/04/25 21:47 40 MG Carvedilol 25 mg TID PO 01/26/25 22:00 02/05/25 15:12 25 MG Albuterol 2.5 mg Q6HWA NEB 01/26/25 18:00 02/05/25 18:49 2.5 MG Ipratropium [place] 0.5 mg Q6HWA NEB 01/26/25 18:00 02/05/25 18:50 0.5 MG Sucralfate 1 gm BID@0600,2200 PO 01/28/25 22:00 02/05/25 06:03 1 GM Docusate Sodium 100 mg BIDPRN PRN PO 01/28/25 13:15 01/30/25 22:15 100 MG Montelukast Sodium 10 mg HS PO 01/29/25 22:00 02/04/25 21:47 10 MG Magnesium Oxide 400 mg DAILY PO 01/31/25 10:00 02/05/25 09:24 400 MG Sodium Chloride 10 ml QSHIFT@10,22 IV 01/31/25 22:00 02/05/25 10:00 10 ML Prochlorperazine Edisylate 10 mg Q4HPRN PRN IV 02/02/25 01:00 02/04/25 13:02 10 MG Diagnostic Test (Pha) 1 strip Q6HR 02/03/25 06:00 02/05/25 18:15 1 STRIP Insulin Human Regular Q6HR SC 02/03/25 06:00 Dextrose 50 ml UD PRN IV 02/03/25 02:45 Amiodarone HCl 200 mg BID PO 02/04/25 10:00 02/05/25 09:24 200 MG Furosemide 20 mg DAILY PO 02/05/25 10:00 02/05/25 10:00 20 MG Pantoprazole Sodium 40 mg DAILY@0600 PO 02/06/25 06:00 Acetaminophen/ Hydrocodone Bitart 1 tab Q6HPRN PRN PO 02/05/25 13:45 02/05/25 15:16 1 TAB Metronidazole 500 mg Q8HR PO 02/05/25 14:00 02/05/25 15:12 500 MG objective Vitals and nursing notes reviewed. GEN: Healthy appearing, well-developed, NAD. HEENT: NC/AT; MMM. CV: RRR, no m/r/g. LUNGS: CTAB, no w/r/c. ABD: Soft, NT/ND, NBS, no masses or organomegaly. EXT: skin Warm, well perfused. no rashes. No clubbing, cyanosis, or edema. No pedal edema. NEURO: Ambulating with no limitations. No focal deficits. laboratory and microbiology Laboratory Tests 02/05/25 06:04 Test 02/05/25 06:04 Range/Units Serum Glucose 84 74-106 mg/dL Problem List Acute kidney injury Chest pain Asthma/COPD CVA Congestive Heart Failure Diabetes mellitus CAD SP CABG X 3 Pulmonary fibrosis 3 L home O2 GERD Hypertension NH Assessment/Plan Agree with current supportive medical care. Cardiology and GI following. Diuretics with Lasix 20 mg daily. Strict Intake/Output. Home medications as ordered. Protonix 40 mg oral daily. Diet as tolerated. Additional plan as per the hospital course. Dietary Evaluation Review Comments: Continue current POC Expected Outcomes/Goals: To meet >75% estimated needs Fu 3-5 days Plan discussed with: Patient, Other (RN) CC Plasma Assessment Blood Product Administration S: [id number] KIMBERLY WERNER DO Feb 05, 2025 20:31
[2025-02-06] VITALS (15 sets, daily range): BP systolic 103–141; BP diastolic 62–89; PULSE 79–115; RESP 16–19; TEMP 96.9–98.8; O2SAT 94–100
[2025-02-06] MEDS: guaiFENesin-DM 100/10mg/5ml SYR PO ONE (04:11)
[2025-02-06] MEDS: PANTOPRAZOLE 40 MG TAB PO SCH (06:20)
--- NOTE | 2025-02-06 08:15 | DVHPN2 ---
Progress Note - Dictate Date Seen: Feb 06, 2025 Medical Necessity Reason Pt with a Central, PICC or Fol: No vital signs Vital Sign Date Time Temp Pulse Resp B/P (MAP) Pulse Ox O2 Delivery O2 Flow Rate FiO2 02/06/25 07:23 70 115/68 02/06/25 06:34 18 94 02/06/25 06:28 Nasal Cannula* 3 32 02/06/25 05:00 98.2 98.2 Total Intake and Output 02/05/25 02/05/25 02/06/25 15:00 23:00 07:00 Intake Total 100 ml 640 ml 675 ml Balance 100 ml 640 ml 675 ml medications Current Medications Medications Dose Ordered Sig/Romaine Route Start Time Stop Time Status Last Admin Dose Admin Enoxaparin Sodium 40 mg DAILY SC 01/27/25 10:00 UNV Acetaminophen 650 mg Q6HP PRN PO 01/26/25 15:30 Nitroglycerin 0.4 mg Q5MINP PRN SL 01/26/25 15:30 01/27/25 08:56 0.4 MG Ascorbic Acid 2,000 mg DAILY PO 01/27/25 10:00 UNV Isosorbide Mononitrate 60 mg DAILY PO 01/27/25 10:00 02/05/25 09:25 60 MG Ranolazine 500 mg BID PO 01/26/25 22:00 02/05/25 21:55 500 MG Atorvastatin Calcium 40 mg HS PO 01/26/25 22:00 02/05/25 21:51 40 MG Carvedilol 25 mg TID PO 01/26/25 22:00 02/06/25 06:23 25 MG Albuterol 2.5 mg Q6HWA NEB 01/26/25 18:00 02/06/25 06:28 2.5 MG Ipratropium [place] 0.5 mg Q6HWA NEB 01/26/25 18:00 02/06/25 06:28 0.5 MG Sucralfate 1 gm BID@0600,2200 PO 01/28/25 22:00 02/06/25 06:19 1 GM Docusate Sodium 100 mg BIDPRN PRN PO 01/28/25 13:15 01/30/25 22:15 100 MG Montelukast Sodium 10 mg HS PO 01/29/25 22:00 02/05/25 21:55 10 MG Magnesium Oxide 400 mg DAILY PO 01/31/25 10:00 02/05/25 09:24 400 MG Sodium Chloride 10 ml QSHIFT@10,22 IV 01/31/25 22:00 02/05/25 21:49 10 ML Prochlorperazine Edisylate 10 mg Q4HPRN PRN IV 02/02/25 01:00 02/04/25 13:02 10 MG Diagnostic Test (Pha) 1 strip Q6HR 02/03/25 06:00 02/06/25 06:20 1 STRIP Insulin Human Regular Q6HR SC 02/03/25 06:00 Dextrose 50 ml UD PRN IV 02/03/25 02:45 Amiodarone HCl 200 mg BID PO 02/04/25 10:00 02/05/25 21:54 200 MG Furosemide 20 mg DAILY PO 02/05/25 10:00 02/05/25 10:00 20 MG Pantoprazole Sodium 40 mg DAILY@0600 PO 02/06/25 06:00 02/06/25 06:20 40 MG Acetaminophen/ Hydrocodone Bitart 1 tab Q6HPRN PRN PO 02/05/25 13:45 02/05/25 15:16 1 TAB Metronidazole 500 mg Q8HR PO 02/05/25 14:00 02/06/25 06:19 500 MG laboratory and microbiology Laboratory Tests 02/05/25 06:04 Test 02/05/25 06:04 Range/Units Serum Glucose 84 74-106 mg/dL Assessment/Plan Had EGD and found to have Hiatal Hernia Had diarrhea and some GI bleeding No chest pain s/p PRBC transfusion for GI bleeding (had Melanotic stool today) Eliquis and Plavix on hold Still with soft and black stool Tele reveals atrial tach again To restart IV Amiodarone again 74-year-old female presented with chest discomfort/productive cough/nasal congestion and abdominal pain. Chest pains have been pleuritic type. Cardiology was involved for cardiac aspects of care. Does have baseline history of coronary artery disease and status post bypass surgery. Is known to have abnormal nuclear stress test and the patient had previously decided to manage it medically. Patient had right and left heart catheterization and BRAD earlier this month. Since admission, serial troponin has been negative. Lying comfortably flat in bed. No JVD. pink mucosa. Lungs reveal scattered rhonchi. Cardiac: Regular, no thrills/murmur. Abdomen is soft. No hepatomegaly. Bowel sounds positive. Lower extremities do not reveal edema. Dorsalis pedis is 2+ bilateral Past medical history includes diabetes mellitus, hyperlipidemia, hypertension, diastolic heart failure, peripheral artery disease, GERD, anxiety, anemia, asthma, coronary artery disease, status post CABG and PCI, status post pacemaker implantation ([employer]), status post old CVA, paroxysmal atrial flutter (on Eliquis), COPD on home oxygen, fibromyalgia, pulmonary hypertension, history of poor functional status, history of GI bleeding, pulmonary fibrosis, hiatal hernia, ex-smoker, status post gold cholecystectomy/hysterectomy. Is known to have closed grafts for CABG. Has had high risk PCI/left main in [facility] (few years back). Does have history of abnormal nuclear stress test and the plan has been to manage her medically. Has been kept on Eliquis and Plavix as outpatient. She is ex-smoker. Left heart catheterization revealed multivessel coronary artery disease. SVG nourishing 1 of the ramus intermedius was diseased but the decision was to manage it medically (ramus intermedius had good flow from patent left main (left main was stented before). Has been offered to go for Watchman device as outpatient. Echocardiogram of January 09, 2023 revealed LVEF of 55 to 60%, mild concentric left ventricular hypertrophy, no wall motion abnormality, mild biatrial enlargement, pacing wire in right-sided chambers, mild to moderate aortic insufficiency, mild mitral regurgitation, mild to moderate tricuspid regurgitation and right ventricular systolic pressure of 35 mmHg Echocardiogram of March 07, 2023 had revealed ejection fraction of 55 to 60%, mild concentric left ventricular hypertrophy, mild AI/MR/PI, mild biatrial enlargement, pacemaker wire in the right-sided chambers and right ventricular systolic pressure of 34 mmHg Echocardiogram of September 06, 2023 revealed ejection fraction of 55% and pacemaker in right-sided chambers Echocardiogram of December 26, 2023 had reported ejection fraction of 55-60%, no wall motion abnormality, [id number] aortic insufficiency, mild MR, moderate TR and right ventricular systolic pressure 42 mm Hg Echocardiogram of August 30, 2024 reported ejection fraction of 55-60%, no wall motion abnormality, mild biatrial enlargement, pacemaker in the right-sided chambers, mild AI/MR and moderate tricuspid regurgitation. Right ventricular systolic pressure was assessed at 41 mm Hg. Echocardiogram of December 20, 2024 (performed in the office) revealed ejection fraction of 60-65%, mild concentric left ventricular hypertrophy, pseudo normal LV filling, mild biatrial enlargement, mild right ventricular enlargement with good systolic function, moderate aortic insufficiency, aortic sclerosis with no stenosis, mild mitral annular calcification, [id number] MR/TR and right ventricular systolic pressure of 53 mm Hg. Echocardiogram of January 10, 2025 revealed mild concentric left ventricular hypertrophy, ejection fraction of 60-65%, pseudo normal LV filling, [id number] aortic insufficiency, mild mitral regurgitation, moderate tricuspid regurgitation and right ventricular systolic pressure of 67 mm Hg. BRAD of January 13, 2025 revealed no significant valvular disease Right and left heart catheterization of January 13, 2025 revealed multivessel coronary artery disease LVEF of around 50%; Apical aneurysm; Increased LVEDP (19 mm Hg); No pulmonary hypertension; Patent left main stent into LCX (dominant vessel) with no significant disease; Proximal LAD was SOLAR ELECTRIC/PHOTOVOLTAIC INSTALLER with minor parallel collaterals. LAD was a diffusely diseased vessel with areas of focal aneurysm; Presence of 2 ramus intermedius; One of the ramus intermedius is with mild disease; Second ramus: Relatively small vessel with mild disease. There was SVG 'also' nourishing it. SVG itself had ostial and middle SVG section disease (decision was made to manage it medically); DANIELLE was atretic but patent; There was 2 other SVG's which were SOLAR ELECTRIC/PHOTOVOLTAIC INSTALLER at ostium and suggestion was for medical therapy WBC: 7.9 - 4.1 - 5.3 - 6.0 - 5.9 - 28.7 - 18.2 - 13.3 - 8.6 Hemoglobin: 8.4 - 7.7 - 8.1 - 8.0 - 8.9 - 9.8 - 7.5 - 7.3 - 9.1 (s/p PRBC transfusion) Creatinine: 0.64 - 0.62 - 0.90 - 0.81 - 1.18 - 1.12 - 0.82 - 0.69 Potassium: 3.8 - 3.7 - 3.6 - 3.8 - 3.9 - 3.4 - 3.5 - 3.8 Troponin (high sensitive): 4 - 3 BNP: 454.54 Stool OB: positive Chest x-ray revealed: 1. Improvement in left lung base consolidation since prior. This could be improvement in atelectasis or pneumonia. 2. Mild cardiomegaly. Prior median sternotomy and CABG. 3. Diffuse reticular and interstitial opacities of the lungs likely related to known fibrosis. Repeat chest xry reported: IMPRESSION: Interval placement of right PICC with tip in appropriate position. Repeat chest xry revealed: IMPRESSION: 1. Mildly progressive diffuse increased prominence of the pulmonary vasculature and interstitium and likely small left pleural effusion. 2. Right PICC. CT of chest revealed: IMPRESSION: Stable changes of moderate to severe pulmonary fibrosis. Cardiomegaly. EKG revealed sinus rhythm with nonspecific ST-T changes. Later revealed atrial flutter with block Telemetry reveals sinus rhythm and occasions of paced rhythm. Later, ongoing atrial flutter with variable block. Later: NSR. Later again: Atrial flutter with 2:1 block Patient is a 74-year-old female who presented with atypical chest discomfort/productive cough/nasal congestion/abdominal pain for few days. Chest pain has been pleuritic. Acute coronary syndrome is not considered. Serial high sensitive troponin has been negative. It is of note that the patient had right and left heart catheterization earlier this month and the result pointed toward medical management. s/p EGD: Hiatal Hernia. Found to have Atrial flutter with variable block and started on Amio drip. Atypical chest pain, rule out component of Pericarditis. Will empirically start Colchicine. Ongoing atrial flutter. On IV Amiodarone. Was told that if IV amiodarone does not work, (in few days) may need / suggest for BRAD/Cardioversion (She herself is against it at this point). Converted to sinus rhythm (no need for Cardioversion). PRBC transfusion for GI bleeding. Secondary to GI bleeding (in need of PRBC transfusion): Plavix and Eliquis are on hold. Chest discomfort, atypical Pleuritic chest pain COPD exacerbation Coronary artery disease, status post CABG/PCI Paroxysmal atrial flutter (on Eliquis as outpatient) COPD/Emphysema Pulmonary fibrosis Pulmonary hypertension, history of Chronic diastolic heart failure Status post pacemaker Hypokalemia Paroxysmal atrial flutter with RVR Hiatal Hernia Sepsis Diarrhea GI bleeding, significant, s/p PRBC transfusion Cardiac suggestions for management: Manage on telemetry Fluid resuscitation Follow-up electrolytes and kidney function and correct abnormalities, keep potassium above 4 magnesium above 2 To start IV Amiodarone again. Secondary to GI bleeding (in need of PRBC transfusion): Plavix and Eliquis are on hold. When stable, will suggest to start low dose Eliquis first Optimized medical therapy long term continuation of full anticoagulation for history of paroxysmal atrial flutter is suggested (on Eliquis). prison continuation of Plavix (CAD h/o Left Main stenting) is suggested. Antianginal therapy Continuation of Statin/Ranexa/Imdur/Coreg is suggested Further evaluation and management depends on the above and clinical course A total of 55 minutes was spent reviewing the patient record, examining the patient, making a diagnostic and therapeutic plan, discussing this plan with medical personnel, following up on diagnostic studies and following the patient for clinical stability excluding any and all procedures. At least 50% of this time was spent in direct, [id number] contact. Thank you for allowing me to participate in this patient's care. Further recommendations will depend on patient's clinical course. Please do not hesitate to contact me if you have any questions or concerns. This medical document was created using electronic medical record system with [employer] computerized dictation system. Although this document has been carefully reviewed, there may still be some phonetic and typographical errors. These areas are purely typographical due to the imperfection of the software programs, and do not reflect any compromise in the patient's medical care. Dietary Evaluation Review Comments: Continue current POC Expected Outcomes/Goals: To meet >75% estimated needs Fu 3-5 days Plan discussed with: Patient, Other (nurse) CC Plasma Assessment Blood Product Administration S: [id number] AJAY SMALLWOOD MD Feb 06, 2025 08:15
[2025-02-06] MEDS: AMIODARONE 360mg/200mL PREMIX 200 ML IV SCH (10:09)
--- NOTE | 2025-02-06 14:33 | DVHPN2 ---
Progress Note Date Seen: Feb 06, 2025 Medical Necessity Reason Pt with a Central, PICC or Fol: No Subjective Patient reports: No new complaints Review of Systems: HEENT:Normal, CVS:Normal, RESPIRATORY:Normal, GI:Normal, :Normal, MSK:Normal, NEURO:Normal Objective vital signs Vital Sign Date Time Temp Pulse Resp B/P (MAP) Pulse Ox O2 Delivery O2 Flow Rate FiO2 02/06/25 13:58 102 126/73 02/06/25 11:19 16 100 02/06/25 11:13 Nasal Cannula 3.0 02/06/25 11:13 32 02/06/25 09:00 98.4 98.4 Total Intake and Output 02/05/25 02/05/25 02/06/25 15:00 23:00 07:00 Intake Total 100 ml 640 ml 675 ml Balance 100 ml 640 ml 675 ml medications Current Medications Medications Dose Ordered Sig/Romaine Route Start Time Stop Time Status Last Admin Dose Admin Enoxaparin Sodium 40 mg DAILY SC 01/27/25 10:00 UNV Acetaminophen 650 mg Q6HP PRN PO 01/26/25 15:30 Nitroglycerin 0.4 mg Q5MINP PRN SL 01/26/25 15:30 01/27/25 08:56 0.4 MG Ascorbic Acid 2,000 mg DAILY PO 01/27/25 10:00 UNV Isosorbide Mononitrate 60 mg DAILY PO 01/27/25 10:00 02/06/25 10:10 60 MG Ranolazine 500 mg BID PO 01/26/25 22:00 02/06/25 10:09 500 MG Atorvastatin Calcium 40 mg HS PO 01/26/25 22:00 02/05/25 21:51 40 MG Carvedilol 25 mg TID PO 01/26/25 22:00 02/06/25 13:58 25 MG Albuterol 2.5 mg Q6HWA NEB 01/26/25 18:00 02/06/25 11:13 2.5 MG Ipratropium [place] 0.5 mg Q6HWA NEB 01/26/25 18:00 02/06/25 11:13 0.5 MG Sucralfate 1 gm BID@0600,2200 PO 01/28/25 22:00 02/06/25 06:19 1 GM Docusate Sodium 100 mg BIDPRN PRN PO 01/28/25 13:15 01/30/25 22:15 100 MG Montelukast Sodium 10 mg HS PO 01/29/25 22:00 02/05/25 21:55 10 MG Magnesium Oxide 400 mg DAILY PO 01/31/25 10:00 02/06/25 10:10 400 MG Sodium Chloride 10 ml QSHIFT@10,22 IV 01/31/25 22:00 02/06/25 10:12 10 ML Prochlorperazine Edisylate 10 mg Q4HPRN PRN IV 02/02/25 01:00 02/04/25 13:02 10 MG Diagnostic Test (Pha) 1 strip Q6HR 02/03/25 06:00 02/06/25 12:00 1 STRIP Insulin Human Regular Q6HR SC 02/03/25 06:00 Dextrose 50 ml UD PRN IV 02/03/25 02:45 Pantoprazole Sodium 40 mg DAILY@0600 PO 02/06/25 06:00 02/06/25 06:20 40 MG Acetaminophen/ Hydrocodone Bitart 1 tab Q6HPRN PRN PO 02/05/25 13:45 02/06/25 10:10 1 TAB Metronidazole 500 mg Q8HR PO 02/05/25 14:00 02/06/25 13:57 500 MG Furosemide 40 mg DAILY PO 02/07/25 10:00 UNV Apixaban 2.5 mg BID PO 02/06/25 22:00 UNV Potassium Chloride 10 meq DAILY PO 02/07/25 10:00 UNV Examination: GENERAL:Normal, HEENT:Normal, NECK:Normal, LUNGS:Normal, CVS:Normal, CVS:Abnormal (irregular), ABDOMEN:Normal, MSK:Normal, SKIN:Normal, NEURO:Normal, :Normal laboratory and microbiology Laboratory Tests 02/05/25 06:04 Test 02/05/25 06:04 Range/Units Serum Glucose 84 74-106 mg/dL Microbiology Date/Time Source Procedure Growth Status 02/05/25 13:40 Stool Stool Culture - Preliminary Resulted 02/05/25 13:40 Stool Shiga Toxin I & II Pending Resulted 01/27/25 00:05 Nose MRSA Screen - Final Complete Problem List/Assessment/Plan Problem List/Assessment/Plan #1 left chest pain ?pleuritic: toradol #2 anemia/ gi bleed: ppi, gi eval, resume eliquis, transfuse #3 cad s/p cabg s/p pci: per cardiology #4 pvd #5 copd/pulmonary fibrosis #6 htn #7 chronic resp failure #8 h/o cva #9 s/p a flutter/ rvr: coreg, iv amiodarone #10 s/p pacer #11 acute diastolic heart failure: lasix #12 diarrhea: check c diff advance care planning- full code- time spent 19 mins Plan discussed with: Patient My Orders My Orders Orders - CALE FAGAN MD Procedure Category Date Status Time 2 Gm Sodium Diet DIET 02/06/25 Transmitted Dinner Basic Metabolic Panel LAB 02/07/25 Verified 06:00 Complete Blood Count LAB 02/07/25 Verified 06:00 Furosemide Tablet PHA 02/07/25 Logged (Lasix Tablet) 10:00 Apixaban (Eliquis) PHA 02/06/25 Logged 22:00 Comprehensive LAB 02/07/25 Verified Metabolic Panel 06:00 Chest Portable XY 02/07/25 Logged 06:00 B-Type Natriuretic LAB 02/07/25 Verified Peptide 05:00 Potassium Er Tablet PHA 02/06/25 Logged (Klor-Con Tablet) 14:30 Potassium Er Tablet PHA 02/07/25 Logged (Klor-Con Tablet) 10:00 Dietary Evaluation Review Comments: Continue current POC Expected Outcomes/Goals: To meet >75% estimated needs Fu 3-5 days Date of Service: Feb 06, 2025 Billing Provider: CALE FAGAN MD Common Visit Codes: [id number] INP/OBS CARE(HIGH) CC Plasma Assessment Blood Product Administration S: [id number] CALE FAGAN MD Feb 06, 2025 14:33
[2025-02-06] MEDS: POTASSIUM CHL 10 Meq TABLET PO ONE (18:02)
--- NOTE | 2025-02-06 20:03 | DVHPN2 ---
Progress Note - Dictate Date Seen: Feb 06, 2025 Medical Necessity Reason Pt with a Central, PICC or Fol: No Subjective Patient was seen and evaluated in follow up. No acute events overnight. No new complaints. vital signs Vital Sign Date Time Temp Pulse Resp B/P (MAP) Pulse Ox O2 Delivery O2 Flow Rate FiO2 02/06/25 19:11 110 18 100 02/06/25 19:05 Nasal Cannula* 3 32 02/06/25 18:19 129/80 02/06/25 17:09 96.9 96.9 Total Intake and Output 02/05/25 02/05/25 02/06/25 15:00 23:00 07:00 Intake Total 100 ml 640 ml 675 ml Balance 100 ml 640 ml 675 ml medications Current Medications Medications Dose Ordered Sig/Romaine Route Start Time Stop Time Status Last Admin Dose Admin Enoxaparin Sodium 40 mg DAILY SC 01/27/25 10:00 UNV Acetaminophen 650 mg Q6HP PRN PO 01/26/25 15:30 Nitroglycerin 0.4 mg Q5MINP PRN SL 01/26/25 15:30 02/06/25 17:19 0.4 MG Ascorbic Acid 2,000 mg DAILY PO 01/27/25 10:00 UNV Isosorbide Mononitrate 60 mg DAILY PO 01/27/25 10:00 02/06/25 10:10 60 MG Ranolazine 500 mg BID PO 01/26/25 22:00 02/06/25 10:09 500 MG Atorvastatin Calcium 40 mg HS PO 01/26/25 22:00 02/05/25 21:51 40 MG Carvedilol 25 mg TID PO 01/26/25 22:00 02/06/25 13:58 25 MG Albuterol 2.5 mg Q6HWA NEB 01/26/25 18:00 02/06/25 19:05 2.5 MG Ipratropium [place] 0.5 mg Q6HWA NEB 01/26/25 18:00 02/06/25 19:05 0.5 MG Sucralfate 1 gm BID@0600,2200 PO 01/28/25 22:00 02/06/25 06:19 1 GM Docusate Sodium 100 mg BIDPRN PRN PO 01/28/25 13:15 01/30/25 22:15 100 MG Montelukast Sodium 10 mg HS PO 01/29/25 22:00 02/05/25 21:55 10 MG Magnesium Oxide 400 mg DAILY PO 01/31/25 10:00 02/06/25 10:10 400 MG Sodium Chloride 10 ml QSHIFT@10,22 IV 01/31/25 22:00 02/06/25 10:12 10 ML Prochlorperazine Edisylate 10 mg Q4HPRN PRN IV 02/02/25 01:00 02/04/25 13:02 10 MG Diagnostic Test (Pha) 1 strip Q6HR 02/03/25 06:00 02/06/25 18:02 1 STRIP Insulin Human Regular Q6HR SC 02/03/25 06:00 Dextrose 50 ml UD PRN IV 02/03/25 02:45 Pantoprazole Sodium 40 mg DAILY@0600 PO 02/06/25 06:00 02/06/25 06:20 40 MG Acetaminophen/ Hydrocodone Bitart 1 tab Q6HPRN PRN PO 02/05/25 13:45 02/06/25 10:10 1 TAB Metronidazole 500 mg Q8HR PO 02/05/25 14:00 02/06/25 13:57 500 MG Furosemide 40 mg DAILY PO 02/07/25 10:00 Apixaban 2.5 mg BID PO 02/06/25 22:00 Potassium Chloride 10 meq DAILY PO 02/07/25 10:00 objective Vitals and nursing notes reviewed. GEN: Healthy appearing, well-developed, NAD. HEENT: NC/AT; MMM. CV: RRR, no m/r/g. LUNGS: CTAB, no w/r/c. ABD: Soft, NT/ND, NBS, no masses or organomegaly. EXT: skin Warm, well perfused. no rashes. No clubbing, cyanosis, or edema. No pedal edema. NEURO: Ambulating with no limitations. No focal deficits. laboratory and microbiology Laboratory Tests 02/05/25 06:04 Test 02/05/25 06:04 Range/Units Serum Glucose 84 74-106 mg/dL Problem List Acute kidney injury Chest pain Asthma/COPD CVA Congestive Heart Failure Diabetes mellitus CAD SP CABG X 3 Pulmonary fibrosis 3 L home O2 GERD Hypertension HI Assessment/Plan Agree with current supportive medical care. Cardiology and GI care management deferred. Lasix increased to 40 mg daily. Klor-Con. Strict Intake/Output. Protonix 40 mg oral daily. Diet as tolerated. No further input from Nephrology standpoint. Will sign off. Dietary Evaluation Review Comments: Continue current POC Expected Outcomes/Goals: To meet >75% estimated needs Fu 3-5 days Plan discussed with: Patient, Other (RN) CC Plasma Assessment Blood Product Administration S: [id number] KIMBERLY WERNER DO Feb 06, 2025 20:03
[2025-02-06] MEDS: APIXABAN 2.5 MG TAB PO SCH (21:31)
[2025-02-07] VITALS (16 sets, daily range): BP systolic 105–153; BP diastolic 59–82; PULSE 72–115; RESP 17–23; TEMP 97.4–98.7; O2SAT 98–100
[2025-02-07 06:49] LABS: Hematocrit 32.1 % (36.0-46.0); Hemoglobin 10.5 g/dL (12.2-16.2); Mean Corpuscular Hemoglobin 28.6 pg (28.0-32.0); Mean Corpuscular Volume 87.7 fL (80.0-100.0); Nucleated Red Blood Cells % 0.0 %
[2025-02-07 07:06] LABS: Alanine Aminotransferase 12 U/L (7-40); Alkaline Phosphatase 69 U/L (46-116); Anion Gap 9 (5-15); BUN/Creatinine Ratio 10.1 (10.0-20.0); Blood Urea Nitrogen 7 mg/dL (9-23); Calcium 8.9 mg/dL (8.7-10.4); Carbon Dioxide 28 mmol/L (20-31); Chloride 99 mmol/L (98-107); Glucose 101 mg/dL (74-106); Potassium 3.7 mmol/L (3.5-5.1); Sodium 136 mmol/L (136-145); Total Protein 5.8 g/dL (5.7-8.2)
[2025-02-07 07:07] LABS: Albumin 3.8 g/dL (3.2-4.8)
[2025-02-07 07:09] LABS: Bilirubin, Total 0.3 mg/dL (0.2-1.0)
--- NOTE | 2025-02-07 07:46 | DVH ---
CHEST RADIOGRAPH Indication: CHF Technique: Single frontal view of the chest was obtained COMPARISON: XY CHEST PORTABLE on DOS: 02/04/25, XY CHEST PORTABLE on DOS: 01/31/25, XY CHEST PORTABLE on DOS: 01/26/25, XY CHEST PORTABLE on DOS: 01/11/25, XY CHEST PORTABLE on DOS: 01/09/25 FINDINGS: Lines and Tubes: Median sternotomy. Left chest wall pacemaker. Right PICC in satisfactory position. Lungs: Pulmonary vascular congestion Pleura: No effusion. No pneumothorax. Cardiomediastinal contours: Unremarkable Bones: Unremarkable IMPRESSION: Slightly improved CHF.
[2025-02-07] MEDS: FUROSEMIDE 40 MG TAB PO SCH (08:38)
[2025-02-07] MEDS: POTASSIUM CHL 10 Meq TABLET PO SCH (08:38)
--- NOTE | 2025-02-07 09:49 | DVHPN2 ---
Progress Note - Dictate Date Seen: Feb 07, 2025 Medical Necessity Reason Pt with a Central, PICC or Fol: No vital signs Vital Sign Date Time Temp Pulse Resp B/P (MAP) Pulse Ox O2 Delivery O2 Flow Rate FiO2 02/07/25 09:30 97.5 106 18 141/59 (86) 98 97.5 02/07/25 06:34 Nasal Cannula 3.0 02/07/25 06:34 32 Total Intake and Output 02/06/25 02/06/25 02/07/25 15:00 23:00 07:00 Intake Total 520 ml 750 ml Balance 520 ml 750 ml medications Current Medications Medications Dose Ordered Sig/Romaine Route Start Time Stop Time Status Last Admin Dose Admin Enoxaparin Sodium 40 mg DAILY SC 01/27/25 10:00 UNV Acetaminophen 650 mg Q6HP PRN PO 01/26/25 15:30 Nitroglycerin 0.4 mg Q5MINP PRN SL 01/26/25 15:30 02/06/25 17:19 0.4 MG Ascorbic Acid 2,000 mg DAILY PO 01/27/25 10:00 UNV Isosorbide Mononitrate 60 mg DAILY PO 01/27/25 10:00 02/07/25 08:37 60 MG Ranolazine 500 mg BID PO 01/26/25 22:00 02/07/25 08:38 500 MG Atorvastatin Calcium 40 mg HS PO 01/26/25 22:00 02/06/25 21:31 40 MG Carvedilol 25 mg TID PO 01/26/25 22:00 02/07/25 05:26 25 MG Albuterol 2.5 mg Q6HWA NEB 01/26/25 18:00 02/07/25 06:34 2.5 MG Ipratropium [place] 0.5 mg Q6HWA NEB 01/26/25 18:00 02/07/25 06:34 0.5 MG Sucralfate 1 gm BID@0600,2200 PO 01/28/25 22:00 02/07/25 05:15 1 GM Docusate Sodium 100 mg BIDPRN PRN PO 01/28/25 13:15 01/30/25 22:15 100 MG Montelukast Sodium 10 mg HS PO 01/29/25 22:00 02/06/25 21:31 10 MG Magnesium Oxide 400 mg DAILY PO 01/31/25 10:00 02/07/25 08:39 400 MG Sodium Chloride 10 ml QSHIFT@10,22 IV 01/31/25 22:00 02/07/25 08:36 10 ML Prochlorperazine Edisylate 10 mg Q4HPRN PRN IV 02/02/25 01:00 02/04/25 13:02 10 MG Diagnostic Test (Pha) 1 strip Q6HR 02/03/25 06:00 02/07/25 06:07 1 STRIP Insulin Human Regular Q6HR SC 02/03/25 06:00 Dextrose 50 ml UD PRN IV 02/03/25 02:45 Pantoprazole Sodium 40 mg DAILY@0600 PO 02/06/25 06:00 02/07/25 05:15 40 MG Acetaminophen/ Hydrocodone Bitart 1 tab Q6HPRN PRN PO 02/05/25 13:45 02/06/25 10:10 1 TAB Metronidazole 500 mg Q8HR PO 02/05/25 14:00 02/07/25 06:06 500 MG Furosemide 40 mg DAILY PO 02/07/25 10:00 02/07/25 08:38 40 MG Apixaban 2.5 mg BID PO 02/06/25 22:00 02/07/25 08:38 2.5 MG Potassium Chloride 10 meq DAILY PO 02/07/25 10:00 02/07/25 08:38 10 MEQ laboratory and microbiology Laboratory Tests 02/07/25 06:15 Test 02/07/25 06:15 Range/Units Serum Glucose 101 74-106 mg/dL Assessment/Plan Had EGD and found to have Hiatal Hernia Had diarrhea and some GI bleeding s/p PRBC transfusion for GI bleeding Back on Eliquis Tele reveals atrial tach again On IV Amiodarone again Had repeated chest pain, serial high sensitive Trop are normal 74-year-old female presented with chest discomfort/productive cough/nasal congestion and abdominal pain. Chest pains have been pleuritic type. Cardiology was involved for cardiac aspects of care. Does have baseline history of coronary artery disease and status post bypass surgery. Is known to have abnormal nuclear stress test and the patient had previously decided to manage it medically. Patient had right and left heart catheterization and BRAD earlier this month. Since admission, serial troponin has been negative. Lying comfortably flat in bed. No JVD. pink mucosa. Lungs reveal scattered rhonchi. Cardiac: Regular, no thrills/murmur. Abdomen is soft. No hepatomegaly. Bowel sounds positive. Lower extremities do not reveal edema. Dorsalis pedis is 2+ bilateral Past medical history includes diabetes mellitus, hyperlipidemia, hypertension, diastolic heart failure, peripheral artery disease, GERD, anxiety, anemia, asthma, coronary artery disease, status post CABG and PCI, status post pacemaker implantation ([employer]), status post old CVA, paroxysmal atrial flutter (on Eliquis), COPD on home oxygen, fibromyalgia, pulmonary hypertension, history of poor functional status, history of GI bleeding, pulmonary fibrosis, hiatal hernia, ex-smoker, status post gold cholecystectomy/hysterectomy. Is known to have closed grafts for CABG. Has had high risk PCI/left main in [facility] (few years back). Does have history of abnormal nuclear stress test and the plan has been to manage her medically. Has been kept on Eliquis and Plavix as outpatient. She is ex-smoker. Left heart catheterization revealed multivessel coronary artery disease. SVG nourishing 1 of the ramus intermedius was diseased but the decision was to manage it medically (ramus intermedius had good flow from patent left main (left main was stented before). Has been offered to go for Watchman device as outpatient. Echocardiogram of January 09, 2023 revealed LVEF of 55 to 60%, mild concentric left ventricular hypertrophy, no wall motion abnormality, mild biatrial enlargement, pacing wire in right-sided chambers, mild to moderate aortic insufficiency, mild mitral regurgitation, mild to moderate tricuspid regurgitation and right ventricular systolic pressure of 35 mmHg Echocardiogram of March 07, 2023 had revealed ejection fraction of 55 to 60%, mild concentric left ventricular hypertrophy, mild AI/MR/PI, mild biatrial enlargement, pacemaker wire in the right-sided chambers and right ventricular systolic pressure of 34 mmHg Echocardiogram of September 06, 2023 revealed ejection fraction of 55% and pacemaker in right-sided chambers Echocardiogram of December 26, 2023 had reported ejection fraction of 55-60%, no wall motion abnormality, [id number] aortic insufficiency, mild MR, moderate TR and right ventricular systolic pressure 42 mm Hg Echocardiogram of August 30, 2024 reported ejection fraction of 55-60%, no wall motion abnormality, mild biatrial enlargement, pacemaker in the right-sided chambers, mild AI/MR and moderate tricuspid regurgitation. Right ventricular systolic pressure was assessed at 41 mm Hg. Echocardiogram of December 20, 2024 (performed in the office) revealed ejection fraction of 60-65%, mild concentric left ventricular hypertrophy, pseudo normal LV filling, mild biatrial enlargement, mild right ventricular enlargement with good systolic function, moderate aortic insufficiency, aortic sclerosis with no stenosis, mild mitral annular calcification, [id number] MR/TR and right ventricular systolic pressure of 53 mm Hg. Echocardiogram of January 10, 2025 revealed mild concentric left ventricular hypertrophy, ejection fraction of 60-65%, pseudo normal LV filling, [id number] aortic insufficiency, mild mitral regurgitation, moderate tricuspid regurgitation and right ventricular systolic pressure of 67 mm Hg. BRAD of January 13, 2025 revealed no significant valvular disease Right and left heart catheterization of January 13, 2025 revealed multivessel coronary artery disease LVEF of around 50%; Apical aneurysm; Increased LVEDP (19 mm Hg); No pulmonary hypertension; Patent left main stent into LCX (dominant vessel) with no significant disease; Proximal LAD was [employer] with minor parallel collaterals. LAD was a diffusely diseased vessel with areas of focal aneurysm; Presence of 2 ramus intermedius; One of the ramus intermedius is with mild disease; Second ramus: Relatively small vessel with mild disease. There was SVG 'also' nourishing it. SVG itself had ostial and middle SVG section disease (decision was made to manage it medically); DANIELLE was atretic but patent; There was 2 other SVG's which were [employer] at ostium and suggestion was for medical therapy WBC: 7.9 - 4.1 - 5.3 - 6.0 - 5.9 - 28.7 - 18.2 - 13.3 - 8.6 - 8.4 Hemoglobin: 8.4 - 7.7 - 8.1 - 8.0 - 8.9 - 9.8 - 7.5 - 7.3 - 9.1 (s/p PRBC transfusion) - 10.5 Creatinine: 0.64 - 0.62 - 0.90 - 0.81 - 1.18 - 1.12 - 0.82 - 0.69 - 0.69 Potassium: 3.8 - 3.7 - 3.6 - 3.8 - 3.9 - 3.4 - 3.5 - 3.8 - 3.7 Troponin (high sensitive): 4 - 3 - 7 - 7 - 7 BNP: 454.54 - 478.41 Stool OB: positive Chest x-ray revealed: 1. Improvement in left lung base consolidation since prior. This could be improvement in atelectasis or pneumonia. 2. Mild cardiomegaly. Prior median sternotomy and CABG. 3. Diffuse reticular and interstitial opacities of the lungs likely related to known fibrosis. Repeat chest xry reported: IMPRESSION: Interval placement of right PICC with tip in appropriate position. Repeat chest xry revealed: IMPRESSION: 1. Mildly progressive diffuse increased prominence of the pulmonary vasculature and interstitium and likely small left pleural effusion. 2. Right PICC. CT of chest revealed: IMPRESSION: Stable changes of moderate to severe pulmonary fibrosis. Cardiomegaly. EKG revealed sinus rhythm with nonspecific ST-T changes. Later revealed atrial flutter with block Telemetry reveals sinus rhythm and occasions of paced rhythm. Later, ongoing atrial flutter with variable block. Later: NSR. Later again: Atrial flutter with 2:1 block Patient is a 74-year-old female who presented with atypical chest discomfort/productive cough/nasal congestion/abdominal pain for few days. Chest pain has been pleuritic. Acute coronary syndrome is not considered. Serial high sensitive troponin has been negative. It is of note that the patient had right and left heart catheterization earlier this month and the result pointed toward medical management. s/p EGD: Hiatal Hernia. Found to have Atrial flutter with variable block and started on Amio drip. Atypical chest pain, rule out component of Pericarditis. Will empirically start Colchicine. Ongoing atrial flutter. On IV Amiodarone. Was told that if IV amiodarone does not work, (in few days) may need / suggest for BRAD/Cardioversion (She herself is against it at this point). Converted to sinus rhythm (no need for Cardioversion). PRBC transfusion for GI bleeding. Secondary to GI bleeding (in need of PRBC transfusion): Plavix on hold. Had repeated Atrial flutter and is back on IV Amiodarone. Chest discomfort, atypical Pleuritic chest pain COPD exacerbation Coronary artery disease, status post CABG/PCI Paroxysmal atrial flutter (on Eliquis as outpatient) COPD/Emphysema Pulmonary fibrosis Pulmonary hypertension, history of Chronic diastolic heart failure Status post pacemaker Hypokalemia Paroxysmal atrial flutter with RVR Hiatal Hernia Sepsis Diarrhea GI bleeding, significant, s/p PRBC transfusion Cardiac suggestions for management: Manage on telemetry Fluid resuscitation Follow-up electrolytes and kidney function and correct abnormalities, keep potassium above 4 magnesium above 2 On IV Amiodarone again. Secondary to GI bleeding (in need of PRBC transfusion): Plavix on hold. 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 buttermaker continuation of Plavix (CAD h/o Left Main stenting) is suggested. (as she had significant GI bleeding: on hold now) Antianginal therapy Continuation of Statin/Ranexa/Imdur/Coreg is suggested Further evaluation and management depends on the above and clinical course A total of 55 minutes was spent reviewing the patient record, examining the patient, making a diagnostic and therapeutic plan, discussing this plan with medical personnel, following up on diagnostic studies and following the patient for clinical stability excluding any and all procedures. At least 50% of this time was spent in direct, [id number] contact. Thank you for allowing me to participate in this patient's care. Further recommendations will depend on patient's clinical course. Please do not hesitate to contact me if you have any questions or concerns. This medical document was created using electronic medical record system with [employer] computerized dictation system. Although this document has been carefully reviewed, there may still be some phonetic and typographical errors. These areas are purely typographical due to the imperfection of the software programs, and do not reflect any compromise in the patient's medical care. Dietary Evaluation Review Comments: Continue current POC Expected Outcomes/Goals: To meet >75% estimated needs Fu 3-5 days Plan discussed with: Patient, Other (nurse) CC Plasma Assessment Blood Product Administration S: [id number] AJAY SMALLWOOD MD Feb 07, 2025 09:49
--- NOTE | 2025-02-07 14:37 | DVHPN2 ---
Consult Progress Note Date Seen: Feb 07, 2025 Subjective Patient reports: Other (continues to have 5-6 bowel movemetns lose stools , intermittedly tachycardic ) Objective vital signs Vital Sign Date Time Temp Pulse Resp B/P (MAP) Pulse Ox O2 Delivery O2 Flow Rate FiO2 02/07/25 12:09 113 18 100 02/07/25 12:03 Nasal Cannula* 3 32 02/07/25 09:30 97.5 141/59 (86) 97.5 Total Intake and Output 02/06/25 02/06/25 02/07/25 15:00 23:00 07:00 Intake Total 520 ml 750 ml Balance 520 ml 750 ml medications Current Medications Medications Dose Ordered Sig/Romaine Route Start Time Stop Time Status Last Admin Dose Admin Enoxaparin Sodium 40 mg DAILY SC 01/27/25 10:00 UNV Acetaminophen 650 mg Q6HP PRN PO 01/26/25 15:30 Nitroglycerin 0.4 mg Q5MINP PRN SL 01/26/25 15:30 02/06/25 17:19 Ascorbic Acid 2,000 mg DAILY PO 01/27/25 10:00 UNV Isosorbide Mononitrate 60 mg DAILY PO 01/27/25 10:00 02/07/25 08:37 Ranolazine 500 mg BID PO 01/26/25 22:00 02/07/25 08:38 Atorvastatin Calcium 40 mg HS PO 01/26/25 22:00 02/06/25 21:31 Carvedilol 25 mg TID PO 01/26/25 22:00 02/07/25 05:26 Albuterol 2.5 mg Q6HWA NEB 01/26/25 18:00 02/07/25 12:03 Ipratropium [place] 0.5 mg Q6HWA NEB 01/26/25 18:00 02/07/25 12:03 Sucralfate 1 gm BID@0600,2200 PO 01/28/25 22:00 02/07/25 05:15 Docusate Sodium 100 mg BIDPRN PRN PO 01/28/25 13:15 01/30/25 22:15 Montelukast Sodium 10 mg HS PO 01/29/25 22:00 02/06/25 21:31 Magnesium Oxide 400 mg DAILY PO 01/31/25 10:00 02/07/25 08:39 Sodium Chloride 10 ml QSHIFT@10,22 IV 01/31/25 22:00 02/07/25 08:36 Prochlorperazine Edisylate 10 mg Q4HPRN PRN IV 02/02/25 01:00 02/04/25 13:02 Diagnostic Test (Pha) 1 strip Q6HR 02/03/25 06:00 02/07/25 06:07 Insulin Human Regular Q6HR SC 02/03/25 06:00 Dextrose 50 ml UD PRN IV 02/03/25 02:45 Pantoprazole Sodium 40 mg DAILY@0600 PO 02/06/25 06:00 02/07/25 05:15 Acetaminophen/ Hydrocodone Bitart 1 tab Q6HPRN PRN PO 02/05/25 13:45 02/07/25 11:20 Metronidazole 500 mg Q8HR PO 02/05/25 14:00 02/07/25 06:06 Furosemide 40 mg DAILY PO 02/07/25 10:00 02/07/25 08:38 Apixaban 2.5 mg BID PO 02/06/25 22:00 02/07/25 08:38 Potassium Chloride 10 meq DAILY PO 02/07/25 10:00 02/07/25 08:38 laboratory and microbiology Laboratory Tests 02/07/25 06:15 Test 02/07/25 06:15 Range/Units Serum Glucose 101 74-106 mg/dL Problem List/Assessment/Plan Problems(with codes): (1) COPD with acute lower respiratory infection (2) Diverticulosis (3) Colitis (4) Leukocytosis (5) UTI (urinary tract infection) (6) Hiatal hernia (7) COPD with acute exacerbation Problem List/Assessment/Plan ID Problem List: - Asthma - Chronic obstructive pulmonary disease (COPD) - Stroke - Dyslipidemia - Hypertension - Myocardial infarction - Congestive heart failure (CHF) - Diabetes mellitus - Coronary artery disease (CAD) - Pulmonary fibrosis - Gastroesophageal reflux disease (GERD) - Suspected colitis (rule out C. difficile) Assessment: This is a 61-year-old female with significant past medical history including asthma, COPD, stroke, dyslipidemia, hypertension, myocardial infarction, CHF, diabetes, CAD, and pulmonary fibrosis (on 3L oxygen), who presents with epigastric abdominal pain for two days (worsening over last 24 hours), accompanied by nausea, vomiting, and constipation. History of multiple prior admissions for similar symptoms (last admission ~1 year ago). Of note, patient was noted to have persistent diarrhea during current admission, with concern for possible C. difficile colitis. Infectious Disease consulted. 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 Laboratory findings: Initial leukocytosis (peak WBC 28.7), hemoglobin 8.4, platelets 226, sodium 143, BUN 16, creatinine 0.64. White count improved over course of admission to 13.3 on current evaluation. No fevers reported, though patient has been intermittently tachycardic. No recent hospitalizations or recent antibiotics except for current admissionno open wounds or CVA tenderness, normal bowel sounds, and no guarding. Amiodarone use noted for arrhythmia. Imaging and procedures: Chest CT with stable [id number] pulmonary fibrosis and cardiomegaly. Upper endoscopy findings as above. 02/05: whitecount is 8.6 , c diff testing is pending 02/06: c diff is negative . suspect gastroenteritis in the setting of chronic reflex disease and constipation resulting in sacral colitis 02/07: hemoglobin down to 7.3 and got a transfusion . appears to be clinically well , has loose stools however suspect related to ongoing therapies and prior constipation Plan: - monitor clinically off all antibiotic therapy - No indication for oral vancomycin at this stage - would send for stool culture testing and consider treating with ceftriaxone empirically in the meantime - Continue to monitor for clinical improvement and resolution of leukocytosis - Cardiology consulted to rule out acute coronary syndrome given chest pain; no interventions detailed in transcript - Follow up on any further infectious or cardiac workup as indicated Plan discussed with: Other Dietary Evaluation Review Comments: Continue current POC Expected Outcomes/Goals: To meet >75% estimated needs Fu 3-5 days CC Plasma Assessment Blood Product Administration S: [id number] ARTURO NORWOOD MD Feb 07, 2025 14:37
--- NOTE | 2025-02-07 14:37 | DVHPN2 ---
Consult Progress Note Date Seen: Feb 06, 2025 Subjective Patient reports: No new complaints (no bowel movements overnight , but 4 bowel movements this morning ) Objective vital signs Vital Sign Date Time Temp Pulse Resp B/P (MAP) Pulse Ox O2 Delivery O2 Flow Rate FiO2 02/07/25 12:09 113 18 100 02/07/25 12:03 Nasal Cannula* 3 32 02/07/25 09:30 97.5 141/59 (86) 97.5 Total Intake and Output 02/06/25 02/06/25 02/07/25 15:00 23:00 07:00 Intake Total 520 ml 750 ml Balance 520 ml 750 ml medications Current Medications Medications Dose Ordered Sig/Romaine Route Start Time Stop Time Status Last Admin Dose Admin Enoxaparin Sodium 40 mg DAILY SC 01/27/25 10:00 UNV Acetaminophen 650 mg Q6HP PRN PO 01/26/25 15:30 Nitroglycerin 0.4 mg Q5MINP PRN SL 01/26/25 15:30 02/06/25 17:19 Ascorbic Acid 2,000 mg DAILY PO 01/27/25 10:00 UNV Isosorbide Mononitrate 60 mg DAILY PO 01/27/25 10:00 02/07/25 08:37 Ranolazine 500 mg BID PO 01/26/25 22:00 02/07/25 08:38 Atorvastatin Calcium 40 mg HS PO 01/26/25 22:00 02/06/25 21:31 Carvedilol 25 mg TID PO 01/26/25 22:00 02/07/25 05:26 Albuterol 2.5 mg Q6HWA NEB 01/26/25 18:00 02/07/25 12:03 Ipratropium [place] 0.5 mg Q6HWA NEB 01/26/25 18:00 02/07/25 12:03 Sucralfate 1 gm BID@0600,2200 PO 01/28/25 22:00 02/07/25 05:15 Docusate Sodium 100 mg BIDPRN PRN PO 01/28/25 13:15 01/30/25 22:15 Montelukast Sodium 10 mg HS PO 01/29/25 22:00 02/06/25 21:31 Magnesium Oxide 400 mg DAILY PO 01/31/25 10:00 02/07/25 08:39 Sodium Chloride 10 ml QSHIFT@10,22 IV 01/31/25 22:00 02/07/25 08:36 Prochlorperazine Edisylate 10 mg Q4HPRN PRN IV 02/02/25 01:00 02/04/25 13:02 Diagnostic Test (Pha) 1 strip Q6HR 02/03/25 06:00 02/07/25 06:07 Insulin Human Regular Q6HR SC 02/03/25 06:00 Dextrose 50 ml UD PRN IV 02/03/25 02:45 Pantoprazole Sodium 40 mg DAILY@0600 PO 02/06/25 06:00 02/07/25 05:15 Acetaminophen/ Hydrocodone Bitart 1 tab Q6HPRN PRN PO 02/05/25 13:45 02/07/25 11:20 Metronidazole 500 mg Q8HR PO 02/05/25 14:00 02/07/25 06:06 Furosemide 40 mg DAILY PO 02/07/25 10:00 02/07/25 08:38 Apixaban 2.5 mg BID PO 02/06/25 22:00 02/07/25 08:38 Potassium Chloride 10 meq DAILY PO 02/07/25 10:00 02/07/25 08:38 laboratory and microbiology Laboratory Tests 02/07/25 06:15 Test 02/07/25 06:15 Range/Units Serum Glucose 101 74-106 mg/dL Problem List/Assessment/Plan Problems(with codes): (1) Weakness (2) COPD with acute exacerbation (3) Hiatal hernia (4) Leukocytosis (5) UTI (urinary tract infection) (6) Diverticulosis (7) COPD with acute lower respiratory infection (8) Colitis Problem List/Assessment/Plan ID Problem List: - Asthma - Chronic obstructive pulmonary disease (COPD) - Stroke - Dyslipidemia - Hypertension - Myocardial infarction - Congestive heart failure (CHF) - Diabetes mellitus - Coronary artery disease (CAD) - Pulmonary fibrosis - Gastroesophageal reflux disease (GERD) - Suspected colitis (rule out C. difficile) Assessment: This is a 61-year-old female with significant past medical history including asthma, COPD, stroke, dyslipidemia, hypertension, myocardial infarction, CHF, diabetes, CAD, and pulmonary fibrosis (on 3L oxygen), who presents with epigastric abdominal pain for two days (worsening over last 24 hours), accompanied by nausea, vomiting, and constipation. History of multiple prior admissions for similar symptoms (last admission ~1 year ago). Of note, patient was noted to have persistent diarrhea during current admission, with concern for possible C. difficile colitis. Infectious Disease consulted. 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 Laboratory findings: Initial leukocytosis (peak WBC 28.7), hemoglobin 8.4, platelets 226, sodium 143, BUN 16, creatinine 0.64. White count improved over course of admission to 13.3 on current evaluation. No fevers reported, though patient has been intermittently tachycardic. No recent hospitalizations or recent antibiotics except for current admissionno open wounds or CVA tenderness, normal bowel sounds, and no guarding. Amiodarone use noted for arrhythmia. Imaging and procedures: Chest CT with stable [id number] pulmonary fibrosis and cardiomegaly. Upper endoscopy findings as above. 02/05: whitecount is 8.6 , c diff testing is pending 02/06: c diff is negative . suspect gastroenteritis in the setting of chronic reflex disease and constipation resulting in sacral colitis Plan: - monitor clinically off all antibioitc therapy - Stop IV Flagyl (metronidazole) therapy - No indication for oral vancomycin at this stage - Recommend stool culture if diarrhea continues - Continue to monitor for clinical improvement and resolution of leukocytosis - Cardiology consulted to rule out acute coronary syndrome given chest pain; no interventions detailed in transcript - Follow up on any further infectious or cardiac workup as indicated Plan discussed with: Other Dietary Evaluation Review Comments: Continue current POC Expected Outcomes/Goals: To meet >75% estimated needs Fu 3-5 days CC Plasma Assessment Blood Product Administration S: [id number] ARTURO NORWOOD MD Feb 07, 2025 14:37
--- NOTE | 2025-02-07 14:37 | DVHINCON2 ---
Date of service: Feb 04, 2025 Family History: Alcoholism Cardiovascular disease G8 FATHER FHx: lung cancer Hypertension G8 FATHER Secondary malignant neoplasm of lung G8 MOTHER Allergies: Coded Allergies: Nitrofurantoin (Verified Allergy, Severe, 04/05/22) Amoxicillin (Verified Allergy, Mild, 09/07/23) 09/07/23: DIVISIONAL STOREKEEPERJOHANNA, SPOKE WITH PATIENT. SHE POSSIBLY RECALLS TAKING AMOXICILLIN BEFORE, DENIES ANY RASHES, ITCHINESS, S/SX OF ANAPHYLAXIS. Ciprofloxacin (Verified Allergy, Mild, 09/07/23) 09/07/23: DIVISIONAL STOREKEEPER, JOHANNA, SPOKE WITH PATIENT. SHE MENTIONED LAST TIME SHE RECIEVED CIPRO INJECTION WAS A WHILE AGO. PATIENT ENDORSED SMALL BUMPS ON THE SKIN BUT PER PATIENT COULD HAVE BEEN DUE TO FAST INJECTION. HAS TAKEN LEVAQUIN PO BEFORE AND DENIES ANY RASH, ITCHINESS, S/SX OF ANAPHYLAXIS. Doxycycline (Verified Allergy, Unknown, "I get really sick", 09/01/24) Patient verbalizes that she "get really sick" in when receiving doxycycline in the past. When asked about specific symptoms in the past, she verbalizes not remembering. Home Meds Active Scripts Docusate Sodium (Docusate Sodium) 100 Mg Cap, 100 MG PO BIDPRN PRN for 30 Days, #60 CAP 0 Refills Prov:CHERRY HARRINGTON 01/14/25 Clopidogrel Bisulfate (Plavix) 75 Mg Tab, 75 MG PO DAILY for 30 Days, #30 TAB 0 Refills Prov:CHERRY HARRINGTON [facility] 01/14/25 Apixaban Base (ELIQUIS) 2.5 Mg Tab, 2.5 MG PO BID for 30 Days, #60 TAB 0 Refills Prov:CHERRY HARRINGTON [facility] 01/14/25 Ondansetron Odt 4MG Tab (ZOFRAN PO) 4 Mg Tb, 4 MG PO Q8HR PRN, #14 TAB ODT TAB-DISSOLVE IN MOUTH, THEN SWALLOW Prov:VITO SCHUSTER MD 07/08/23 Reported Medications Ferrous Sulfate (Ferosul) 325 Mg Tab, 1 TAB PO BID for 30 Days, #60 06/12/24 Dicyclomine Hcl (BENTYL CAPSULE) 10 Mg Cp, 1 CAP PO QID PRN for 5 Days, #20 06/12/24 Isosorbide Mononitrate (Isosorbide Mononitrate Er) 60 Mg Tab, 1 TAB PO DAILY for 90 Days, #90 06/12/24 Hiibysrrnec-Vwezokzfwsxi-Syjrj (Trelegy Ellipta 200-62.5-25 Mcg/INH) 1 Aer Aer, 1 PUFF IN DAILY for 30 Days, #60 06/12/24 Carvedilol (Carvedilol) 25 Mg Tab, 1 TAB PO TID for 30 Days, #90 02/22/24 Tramadol Hcl (Tramadol Hcl) 50 Mg Tab, 50 MG PO BID PRN for PAIN SCALE 1 THRU 6, MG 10/11/23 Gsafhxzksxd-Ogdmmzdsgle-Kff C- (Glucosamine Chondroitin) Tab, 1500 MG PO BID, TAB 10/11/23 Zinc Sulfate (Zinc Sulfate) 220 Mg Cap, 50 MG PO DAILY for 30 Days, MG 10/11/23 Ascorbic Acid (VITAMIN C TABLET) 500 Mg Tb, 2000 MG PO DAILY, #30 TAB 3 Refills 10/11/23 Nitroglycerin (Nitroglycerin Lingual) 0.4 Mg/[place] Spr, 0.4 MG TL BID PRN for FOR CHEST PAIN, SPR 10/11/23 Magnesium Oxide (MAGNESIUM OXIDE) 400 Mg Tab, 1 TAB PO DAILY for 30 Days, #30 10/11/23 Evolocumab (Repatha) 140 Mg/Ml Inj, 1 ML SC Q2WEEK for 56 Days, #14 INJECT 1 ML SUBCUTANEOUSLY EVERY 2 WEEKS. 09/07/23 Potassium Chloride (K-Tabs) 10 Meq Tab, 1 TAB.CHEW PO DAILY 07/01/22 Pantoprazole Sodium Sesquihydr (Pantoprazole Sodium) 40 Mg Tab, 1 TAB PO DAILY for 30 Days, #30 07/01/22 Ranolazine (Ranolazine ER) 500 Mg Tab, 1 TAB PO BID for 30 Days, #60 07/01/22 Furosemide (Furosemide) 40 Mg Tab, 1 TAB PO DAILY for 90 Days, #90 07/01/22 Atorvastatin Calcium (ATORVASTATIN CALCIUM) 40 Mg Tab, 1 TAB PO HS for 30 Days, #30 07/01/22 Montelukast Sodium (MONTELUKAST SODIUM) 10 Mg Tab, 1 TAB PO DAILY for 30 Days, #30 07/01/22 Ticagrelor Base (BRILINTA) 90 Mg Tab, 1 TAB PO BID for 30 Days, #60 11/25/22 Current Medications Current Medications Medications (Trade) Dose Ordered Sig/Romaine Route PRN Reason Start Time Stop Time Status Last Admin Furosemide (Lasix Tablet) 40 mg DAILY PO 02/07/25 10:00 02/07/25 08:38 Apixaban (Eliquis) 2.5 mg BID PO 02/06/25 22:00 02/07/25 08:38 Potassium Chloride (Klor-Con Tablet) 10 meq DAILY PO 02/07/25 10:00 02/07/25 08:38 Vital Signs Vital Signs Date Time Temp Pulse Resp B/P (MAP) Pulse Ox O2 Delivery O2 Flow Rate FiO2 02/07/25 12:09 113 18 100 02/07/25 12:03 Nasal Cannula* 3 32 02/07/25 09:30 97.5 141/59 (86) 97.5 Labs/Diagnostic Data Labs Test 02/07/25 11:26 02/07/25 06:15 02/06/25 22:17 02/05/25 06:04 Range/Units POC Glucose 130 H 70-106 mg/dl White Blood Count 8.4 4.4-10.8 10^3/uL Red Blood Count 3.66 L 4.0-5.20 10^6/uL Hemoglobin 10.5 #L 12.2-16.2 g/dL Hematocrit 32.1 #L 36.0-46.0 % Mean Corpuscular Volume 87.7 80.0-100.0 fL Mean Corpuscular Hemoglobin 28.6 28.0-32.0 pg Mean Corpuscular Hemoglobin Concent 32.6 32.0-36.0 g/dL Red Cell Distribution Width 17.5 H 11.8-14.3 % Platelet Count 273 140-450 10^3/uL Mean Platelet Volume 7.1 6.9-10.8 fL Neutrophils (%) (Auto) 79.9 37.0-80.0 % Lymphocytes (%) (Auto) 5.7 L 10.0-50.0 % Monocytes (%) (Auto) 10.0 0.0-12.0 % Eosinophils (%) (Auto) 3.9 0.0-7.0 % Basophils (%) (Auto) 0.5 0.0-2.0 % Neutrophils # (Auto) 6.7 1.6-8.6 10 ^3/uL Lymphocytes # (Auto) 0.5 0.4-5.4 10 ^3/uL Monocytes # (Auto) 0.8 0-1.3 10 ^3/uL Eosinophils # (Auto) 0.3 0-0.8 10 ^3/uL Basophils # (Auto) 0 0-0.2 10 ^3/uL Nucleated Red Blood Cells 0.0 % Sodium Level 136 136-145 mmol/L Potassium Level 3.7 3.5-5.1 mmol/L Chloride Level 99 98-107 mmol/L Carbon Dioxide Level 28 20-31 mmol/L Anion Gap 9 5-15 Blood Urea Nitrogen 7 L 9-23 mg/dL Creatinine 0.69 0.550-1.02 mg/dL Glomerular Filtration Rate Calc 90 >90 mL/min BUN/Creatinine Ratio 10.1 10.0-20.0 Serum Glucose 101 74-106 mg/dL Calcium Level 8.9 8.7-10.4 mg/dL Total Bilirubin 0.3 0.2-1.0 mg/dL Aspartate Amino Transferase (AST) 27 13-40 U/L Alanine Aminotransferase (ALT) 12 7-40 U/L Alkaline Phosphatase 69 46-116 U/L B-Type Natriuretic Peptide 478.41 0-100 pg/mL Total Protein 5.8 5.7-8.2 g/dL Albumin 3.8 3.2-4.8 g/dL Troponin I High Sensitivity 7 </=34 ng/L Magnesium Level 2.1 1.6-2.6 mg/dL Test 02/02/25 22:55 02/02/25 13:06 02/01/25 21:00 01/28/25 05:52 Range/Units Stool for White Cells Moderate Differential Total Cells Counted 100.0 100 Neutrophils % (Manual) 83 H 37.0-80.0 Band Neutrophils % (Manual) 7 Lymphocytes % (Manual) 3 L 10.0-50.0 Monocytes % (Manual) 7 0-12 Eosinophils % (Manual) 0 0-7 Basophils % (Manual) 0 0.0-2.0 Metamyelocytes % (manual) 0 Myelocytes % (Manual) 0 Promyelocytes % (Manual) 0 Blast Cells % (Manual) 0 Reactive Lymphocytes 0 Platelet Estimate Adequate Anisocytosis (manual) Slight Stool Occult Blood Positive Negative Stool Occult Blood Sample #3 Negative Prothrombin Time 13.8 H 9.3-11.8 sec Prothrombin Time INR 1.34 H 0.9-1.15 Activated Partial Thromboplast Time 28.6 24.5-34.5 SEC Test 01/27/25 16:43 01/27/25 06:26 Range/Units Urine Color Colorless Yellow Urine Clarity Clear Clear Urine pH 5.0 5.0-9.0 Urine Specific [place] 1.009 1.001-1.035 Urine Protein Negative Negative Urine Ketones Negative Negative Urine Blood Negative Negative /uL Urine Nitrite Negative Negative Urine Bilirubin Negative Negative Urine Urobilinogen Normal Negative mg/dL Urine Leukocyte Esterase Negative Negative /uL Urine RBC <1 0 - 4 /hpf Urine Microscopic WBC < 1 0-5 /HPF Urine Squamous Epithelial Cells Few <5 /hpf Urine Bacteria Few H None Seen /hpf Urine Hyaline Casts Few 0 - 2 /lpf Urine Glucose Normal Normal mg/dL Hepatitis B Surface Antigen Negative Negative Hepatitis C Antibody Negative Negative Microbiology Date/Time Source Procedure Growth Status 02/05/25 13:40 Stool Stool Culture - Final Complete 02/05/25 13:40 Stool Shiga Toxin I & II - Final Complete 01/27/25 00:05 Nose MRSA Screen - Final Complete Problems(with codes): (1) COPD with acute lower respiratory infection (2) Diverticulosis (3) Colitis (4) COPD with acute exacerbation (5) Leukocytosis Plan/Recommendation ASSESSMENT AND PLAN: ID Problem List: - Asthma - Chronic obstructive pulmonary disease (COPD) - Stroke - Dyslipidemia - Hypertension - Myocardial infarction - Congestive heart failure (CHF) - Diabetes mellitus - Coronary artery disease (CAD) - Pulmonary fibrosis - Gastroesophageal reflux disease (GERD) - Suspected colitis (rule out C. difficile) Assessment: This is a 61-year-old female with significant past medical history including asthma, COPD, stroke, dyslipidemia, hypertension, myocardial infarction, CHF, diabetes, CAD, and pulmonary fibrosis (on 3L oxygen), who presents with epigastric abdominal pain for two days (worsening over last 24 hours), accompanied by nausea, vomiting, and constipation. History of multiple prior admissions for similar symptoms (last admission ~1 year ago). Of note, patient was noted to have persistent diarrhea during current admission, with concern for possible C. difficile colitis. Infectious Disease consulted. 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 Laboratory findings: Initial leukocytosis (peak WBC 28.7), hemoglobin 8.4, platelets 226, sodium 143, BUN 16, creatinine 0.64. White count improved over course of admission to 13.3 on current evaluation. No fevers reported, though patient has been intermittently tachycardic. No recent hospitalizations or recent antibiotics except for current admissionno open wounds or CVA tenderness, normal bowel sounds, and no guarding. Amiodarone use noted for arrhythmia. Imaging and procedures: Chest CT with stable [id number]-[id number] pulmonary fibrosis and cardiomegaly. Upper endoscopy findings as above. Plan: - Continue current IV Flagyl (metronidazole) therapy - Monitor C. difficile testing and clinical response - No indication for oral vancomycin at this stage - Recommend stool culture if diarrhea continues - Consider empiric ceftriaxone if ongoing diarrhea and concern for streptococcal colitis persists - Continue to monitor for clinical improvement and resolution of leukocytosis - Cardiology consulted to rule out acute coronary syndrome given chest pain; no interventions detailed in transcript - Follow up on any further infectious or cardiac workup as indicated Assessment and plan discussed with patient as above. Plan is subject to change as new information becomes available. Updates may be incorporated as addenda. Thank you for the consult. Infectious Disease will continue to follow. Please contact Infectious Disease with additional concerns. Arturo Tierney M.D. [facility] Ph: ? Teams text: [email or web address] History: The patient's chart and medications were reviewed in detail and the patient was seen and examined. History obtained from: patient Ms. Brownlee is a 61-year-old female with extensive history as above, presenting with new-onset epigastric abdominal pain, persistent nausea, vomiting, and constipation over the preceding days. Relevant infectious and gastrointestinal workup ongoing. No history of recent hospitalization or recent exposure to an tibiotics prior to this admission. Recent use of Zofran (ondansetron) as prescribed. No known sick contacts reported. Review of Systems: A complete 10 system review of systems was completed and negative except as noted in the HPI or here. ROS: - CONSTITUTIONAL: Denies weight loss, fever, chills. - HEENT: Denies changes in vision and hearing. - RESPIRATORY: Denies increased shortness of breath or cough beyond baseline pulmonary disease. - CARDIOVASCULAR: Denies chest pain except as noted for workup. - GASTROINTESTINAL: Positive for abdominal pain, nausea, vomiting, constipation, and recent onset diarrhea as detailed above. - GENITOURINARY: Denies dysuria or frequency. - MUSCULOSKELETAL: Denies myalgia or joint pain. - SKIN: Denies rash or pruritus. - NEUROLOGICAL: Denies headache or syncope. - PSYCHIATRIC: Denies recent changes in mood, anxiety, depression. Past Medical History: - Asthma COPD - Stroke - Dyslipidemia - Hypertension - Myocardial infarction - Congestive heart failure - Diabetes mellitus - Coronary artery disease - Pulmonary fibrosis GERD Past Surgical History: History reviewed. No pertinent surgical history provided in transcript. Home Medications: Patient is on amiodarone for arrhythmia and ondansetron (Zofran). Other home medications not listed in transcript. Allergies: - Ciprofloxacin - Doxycycline - Amoxicillin - Nitrofurantoin Family History: Not provided in transcript. Social History: Not provided in transcript. Objective: Vital Signs on Arrival: Temperature: 98.4 F Blood Pressure: 108/50 Pulse: 72 Respiratory Rate: 17 SpO2: 96% on room air Most Recent Vital Signs: Not provided in transcript. Admission Weight: Not provided in transcript. Physical Exam: General: NAD Neck: Supple. No masses. HEENT: PERRL. Normal lids and conjunctiva. Moist mucous membranes. Oropharynx without lesions, exudates or excessive erythema. Normal appearance of the external aspects of the nose and ears. Heart: Regular rhythm, normal rate. No murmur. No lower extremity edema. Lungs: Normal respiratory effort. Clear to auscultation bilaterally. No wheezes. No crackles. Abdomen: Soft. Non-tender. Non-distended. No masses or abdominal hernia. Msk: No digital cyanosis. Normal strength and tone in all 4 limbs Skin: Warm and dry, no rashes. Neuro: Alert. No facial droop or slurred speech. Extra-ocular movements intact. Sensation intact to soft touch in all 4 limbs. Psych: Appropriate mood. Full affect. Oriented to person, place, time, and situation. Lines: Not provided in transcript. Diagnostic Studies: Available diagnostic studies were reviewed personally. Significant relevant findings outlined below or in Assessment and Plan above. Pertinent Imaging: - Chest CT: Stable [id number] pulmonary fibrosis and cardiomegaly - Upper endoscopy: 23 cm sliding hiatal hernia, mild anterogastritis, minimal duodenitis (second/third part of duodenum normal), slight irregularity of squamocolumnar junction without significant esophagitis, compression of mid-esophagus (likely aortic arch) Pertinent Labs: - WBC peak 28.7 (during this admission), improved to 18.2, latest 13.3 - Hemoglobin 8.4 - Platelets 226 - Sodium 143 BUN 16 - Creatinine 0.64 Microbiology: - C. difficile testing pending (recommend follow-up if persistent diarrhea) Other Studies: Plan discussed with: Patient ARTURO TIERNEY MD Feb 07, 2025 14:37
--- NOTE | 2025-02-07 14:37 | DVHPN2 ---
Consult Progress Note Date Seen: Feb 05, 2025 Subjective Patient reports: Other (on 3 liters nasal canula , normal active bowel sounds . significantly improved on theray ) Objective vital signs Vital Sign Date Time Temp Pulse Resp B/P (MAP) Pulse Ox O2 Delivery O2 Flow Rate FiO2 02/07/25 12:09 113 18 100 02/07/25 12:03 Nasal Cannula* 3 32 02/07/25 09:30 97.5 141/59 (86) 97.5 Total Intake and Output 02/06/25 02/06/25 02/07/25 15:00 23:00 07:00 Intake Total 520 ml 750 ml Balance 520 ml 750 ml medications Current Medications Medications Dose Ordered Sig/Romaine Route Start Time Stop Time Status Last Admin Dose Admin Enoxaparin Sodium 40 mg DAILY SC 01/27/25 10:00 UNV Acetaminophen 650 mg Q6HP PRN PO 01/26/25 15:30 Nitroglycerin 0.4 mg Q5MINP PRN SL 01/26/25 15:30 02/06/25 17:19 Ascorbic Acid 2,000 mg DAILY PO 01/27/25 10:00 UNV Isosorbide Mononitrate 60 mg DAILY PO 01/27/25 10:00 02/07/25 08:37 Ranolazine 500 mg BID PO 01/26/25 22:00 02/07/25 08:38 Atorvastatin Calcium 40 mg HS PO 01/26/25 22:00 02/06/25 21:31 Carvedilol 25 mg TID PO 01/26/25 22:00 02/07/25 05:26 Albuterol 2.5 mg Q6HWA NEB 01/26/25 18:00 02/07/25 12:03 Ipratropium [place] 0.5 mg Q6HWA NEB 01/26/25 18:00 02/07/25 12:03 Sucralfate 1 gm BID@0600,2200 PO 01/28/25 22:00 02/07/25 05:15 Docusate Sodium 100 mg BIDPRN PRN PO 01/28/25 13:15 01/30/25 22:15 Montelukast Sodium 10 mg HS PO 01/29/25 22:00 02/06/25 21:31 Magnesium Oxide 400 mg DAILY PO 01/31/25 10:00 02/07/25 08:39 Sodium Chloride 10 ml QSHIFT@10,22 IV 01/31/25 22:00 02/07/25 08:36 Prochlorperazine Edisylate 10 mg Q4HPRN PRN IV 02/02/25 01:00 02/04/25 13:02 Diagnostic Test (Pha) 1 strip Q6HR 02/03/25 06:00 02/07/25 06:07 Insulin Human Regular Q6HR SC 02/03/25 06:00 Dextrose 50 ml UD PRN IV 02/03/25 02:45 Pantoprazole Sodium 40 mg DAILY@0600 PO 02/06/25 06:00 02/07/25 05:15 Acetaminophen/ Hydrocodone Bitart 1 tab Q6HPRN PRN PO 02/05/25 13:45 02/07/25 11:20 Metronidazole 500 mg Q8HR PO 02/05/25 14:00 02/07/25 06:06 Furosemide 40 mg DAILY PO 02/07/25 10:00 02/07/25 08:38 Apixaban 2.5 mg BID PO 02/06/25 22:00 02/07/25 08:38 Potassium Chloride 10 meq DAILY PO 02/07/25 10:00 02/07/25 08:38 laboratory and microbiology Laboratory Tests 02/07/25 06:15 Test 02/07/25 06:15 Range/Units Serum Glucose 101 74-106 mg/dL Problem List/Assessment/Plan Problems(with codes): (1) COPD with acute lower respiratory infection (2) Diverticulosis (3) Colitis (4) UTI (urinary tract infection) (5) Leukocytosis (6) Hiatal hernia (7) COPD with acute exacerbation (8) Weakness Problem List/Assessment/Plan ID Problem List: - Asthma - Chronic obstructive pulmonary disease (COPD) - Stroke - Dyslipidemia - Hypertension - Myocardial infarction - Congestive heart failure (CHF) - Diabetes mellitus - Coronary artery disease (CAD) - Pulmonary fibrosis - Gastroesophageal reflux disease (GERD) - Suspected colitis (rule out C. difficile) Assessment: This is a 61-year-old female with significant past medical history including asthma, COPD, stroke, dyslipidemia, hypertension, myocardial infarction, CHF, diabetes, CAD, and pulmonary fibrosis (on 3L oxygen), who presents with epigastric abdominal pain for two days (worsening over last 24 hours), accompanied by nausea, vomiting, and constipation. History of multiple prior admissions for similar symptoms (last admission ~1 year ago). Of note, patient was noted to have persistent diarrhea during current admission, with concern for possible C. difficile colitis. Infectious Disease consulted. 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 Laboratory findings: Initial leukocytosis (peak WBC 28.7), hemoglobin 8.4, platelets 226, sodium 143, BUN 16, creatinine 0.64. White count improved over course of admission to 13.3 on current evaluation. No fevers reported, though patient has been intermittently tachycardic. No recent hospitalizations or recent antibiotics except for current admissionno open wounds or CVA tenderness, normal bowel sounds, and no guarding. Amiodarone use noted for arrhythmia. Imaging and procedures: Chest CT with stable [id number] pulmonary fibrosis and cardiomegaly. Upper endoscopy findings as above. 02/05: whitecount is 8.6 , c diff testing is pending Plan: - Continue current IV Flagyl (metronidazole) therapy - hold off on ceftriaxone - No indication for oral vancomycin at this stage - Recommend stool culture if diarrhea continues - f/u on pending c diff testing - Continue to monitor for clinical improvement and resolution of leukocytosis - Cardiology consulted to rule out acute coronary syndrome given chest pain; no interventions detailed in transcript - Follow up on any further infectious or cardiac workup as indicated Plan discussed with: Other Dietary Evaluation Review Comments: Continue current POC Expected Outcomes/Goals: To meet >75% estimated needs Fu 3-5 days CC Plasma Assessment Blood Product Administration S: [id number] ARTURO NORWOOD MD Feb 07, 2025 14:37
[2025-02-07] MEDS: cefTRIAXone 1GM/50ML D5W 50 ML IV SCH (15:16)
--- NOTE | 2025-02-07 16:04 | DVHPN2 ---
Subjective Patient having some improvement in symptoms Reviewed: H&P Changes from previous H/P or p: No Changes General: Per HPI Objective Vitals Vital Signs Date Time Temp Pulse Resp B/P (MAP) Pulse Ox O2 Delivery O2 Flow Rate FiO2 02/07/25 14:58 78 122/59 02/07/25 13:00 97.4 22 98 97.4 02/07/25 12:03 Nasal Cannula* 3 32 Intake/Output Intake and Output 02/07/25 07:00 Intake Total 1270 ml Balance 1270 ml Intake Oral 1070 ml IV Total 200 ml # Voids 14 # Bowel Movements 6 Exam GEN: Healthy appearing, well-developed, NAD. HEENT: NC/AT; MMM. CV: RRR, no m/r/g. LUNGS: CTAB, no w/r/c. ABD: Soft, NT/ND, NBS, no masses or organomegaly. EXT: skin Warm, well perfused. no rashes. No clubbing, cyanosis, or edema. NEURO: Ambulating with no limitations. No focal deficits. Medications Current Medications Medications Dose Ordered Sig/Romaine Route Start Time Stop Time Status Last Admin Dose Admin Enoxaparin Sodium 40 mg DAILY SC 01/27/25 10:00 UNV Acetaminophen 650 mg Q6HP PRN PO 01/26/25 15:30 Nitroglycerin 0.4 mg Q5MINP PRN SL 01/26/25 15:30 02/06/25 17:19 0.4 MG Ascorbic Acid 2,000 mg DAILY PO 01/27/25 10:00 UNV Isosorbide Mononitrate 60 mg DAILY PO 01/27/25 10:00 02/07/25 08:37 60 MG Ranolazine 500 mg BID PO 01/26/25 22:00 02/07/25 08:38 500 MG Atorvastatin Calcium 40 mg HS PO 01/26/25 22:00 02/06/25 21:31 40 MG Carvedilol 25 mg TID PO 01/26/25 22:00 02/07/25 14:58 25 MG Albuterol 2.5 mg Q6HWA NEB 01/26/25 18:00 02/07/25 12:03 2.5 MG Ipratropium [place] 0.5 mg Q6HWA NEB 01/26/25 18:00 02/07/25 12:03 0.5 MG Sucralfate 1 gm BID@0600,2200 PO 01/28/25 22:00 02/07/25 05:15 1 GM Docusate Sodium 100 mg BIDPRN PRN PO 01/28/25 13:15 01/30/25 22:15 100 MG Montelukast Sodium 10 mg HS PO 01/29/25 22:00 02/06/25 21:31 10 MG Magnesium Oxide 400 mg DAILY PO 01/31/25 10:00 02/07/25 08:39 400 MG Sodium Chloride 10 ml QSHIFT@10,22 IV 01/31/25 22:00 02/07/25 08:36 10 ML Prochlorperazine Edisylate 10 mg Q4HPRN PRN IV 02/02/25 01:00 02/04/25 13:02 10 MG Diagnostic Test (Pha) 1 strip Q6HR 02/03/25 06:00 02/07/25 12:00 1 STRIP Insulin Human Regular Q6HR SC 02/03/25 06:00 Dextrose 50 ml UD PRN IV 02/03/25 02:45 Pantoprazole Sodium 40 mg DAILY@0600 PO 02/06/25 06:00 02/07/25 05:15 40 MG Acetaminophen/ Hydrocodone Bitart 1 tab Q6HPRN PRN PO 02/05/25 13:45 02/07/25 11:20 1 TAB Furosemide 40 mg DAILY PO 02/07/25 10:00 02/07/25 08:38 40 MG Apixaban 2.5 mg BID PO 02/06/25 22:00 02/07/25 08:38 2.5 MG Potassium Chloride 10 meq DAILY PO 02/07/25 10:00 02/07/25 08:38 10 MEQ Ceftriaxone Sodium 50 ml @ 100 mls/hr DAILY@09 IV 02/07/25 15:16 Laboratory Results Laboratory Tests 02/07/25 06:15 Chemistry Test 02/07/25 06:15 Albumin 3.8 g/dL (3.2-4.8) Calcium Level 8.9 mg/dL (8.7-10.4) Total Protein 5.8 g/dL (5.7-8.2) Cardiac Markers Test 02/07/25 06:15 B-Type Natriuretic Peptide 478.41 pg/mL (0-100) LFT Test 02/07/25 06:15 Alanine Aminotransferase (ALT) 12 U/L (7-40) Alkaline Phosphatase 69 U/L (46-116) Aspartate Amino Transferase (AST) 27 U/L (13-40) Total Bilirubin 0.3 mg/dL (0.2-1.0) Urinalysis Test 01/27/25 16:43 Urine Color Colorless (Yellow) Urine Clarity Clear (Clear) Urine pH 5.0 (5.0-9.0) Urine Specific [place] 1.009 (1.001-1.035) Urine Protein Negative (Negative) Urine Ketones Negative (Negative) Urine Blood Negative /uL (Negative) Urine Nitrite Negative (Negative) Urine Bilirubin Negative (Negative) Urine Urobilinogen Normal mg/dL (Negative) Urine Leukocyte Esterase Negative /uL (Negative) Urine RBC <1 /hpf (0 - 4) Urine Microscopic WBC < 1 /HPF (0-5) Urine Squamous Epithelial Cells Few /hpf (<5) Urine Bacteria Few /hpf (None Seen) H Urine Hyaline Casts Few /lpf (0 - 2) Urine Glucose Normal mg/dL (Normal) Microbiology Microbiology Date/Time Source Procedure Growth Status 02/05/25 13:40 Stool Stool Culture - Final Complete 02/05/25 13:40 Stool Shiga Toxin I & II - Final Complete 01/27/25 00:05 Nose MRSA Screen - Final Complete Labs and/or images reviewed: Labs reviewed by me, Image(s) reviewed by me Assessment/Plan Assessment/Plan 02/07 patient is here for GI bleed, EGD was done finding only gastritis and duodenitis and hiatal hernia. No source of bleeding found. Tissue sample taken and sent to path. GI recommend continue p.o. Protonix daily with b.i.d. Carafate. Follow up outpatient. Cardiology is following for AFib RVR. Currently patient is getting amiodarone load which will take 2 more days to convert to p.o.. Continue following. Patient has pain today. We will use Tylenol, tramadol home dose, [place] 10. We will add Cymbalta as well. Otherwise no changes and continue plan as per primary team plan. Chest pain, rule out ACS Asthma/COPD, CVA, dyslipidemia, hypertension, mi, CHF, diabetes mellitus, CAD SP CABG X 3, pulmonary fibrosis 3 L home O2, GERD - also Cardiology Dr. Martinez - Continuing home meds ( Eliquis, Plavix, Lasix, Imdur, Protonix, ranolazine,, Lipitor, Coreg) - plavix, lipitor continue. no loading dose. r/o ACS with home stager consult. - tele monitor - chest pain protocol Cardiac diabetic diet GI prophylaxis-continue home dose p.o. Protonix DVT prophylaxis- home Eliquis Tele Full code Plan discussed with: Patient Date of Service: Feb 07, 2025 Billing Provider: TAWANA ROGEL MD Common Visit Codes: [id number] INP/OBS CARE(HIGH) TAWANA ROGEL MD Feb 07, 2025 16:03
[2025-02-07] MEDS: HYDROcodone-ACET 10/325MG TAB PO PRN (20:47)
[2025-02-08] VITALS (14 sets, daily range): BP systolic 100–153; BP diastolic 53–90; PULSE 64–76; RESP 16–20; TEMP 97–98.3; O2SAT 98–100
[2025-02-08 06:50] LABS: Hematocrit 30.7 % (36.0-46.0); Hemoglobin 10.3 g/dL (12.2-16.2); Mean Corpuscular Hemoglobin 29.3 pg (28.0-32.0); Mean Corpuscular Volume 87.6 fL (80.0-100.0); Nucleated Red Blood Cells % 0.1 %
[2025-02-08 07:04] LABS: Alanine Aminotransferase 12 U/L (7-40); Albumin 3.8 g/dL (3.2-4.8); Alkaline Phosphatase 67 U/L (46-116); Anion Gap 12 (5-15); BUN/Creatinine Ratio 13.3 (10.0-20.0); Blood Urea Nitrogen 10 mg/dL (9-23); Calcium 9.1 mg/dL (8.7-10.4); Carbon Dioxide 29 mmol/L (20-31); Potassium 3.5 mmol/L (3.5-5.1)
[2025-02-08 07:14] LABS: Bilirubin, Total 0.2 mg/dL (0.2-1.0); Chloride 95 mmol/L (98-107); Glucose 131 mg/dL (74-106); Sodium 136 mmol/L (136-145); Total Protein 5.4 g/dL (5.7-8.2)
[2025-02-08] MEDS: BACLOFEN 10 MG TAB PO ONE (14:22)
[2025-02-08] MEDS: IBUPROFEN 400 MG TAB PO ONE (14:22)
--- NOTE | 2025-02-08 17:15 | DVHPN2 ---
Subjective Patient is feeling improved Reviewed: H&P Changes from previous H/P or p: No Changes General: Per HPI Objective Vitals Vital Signs Date Time Temp Pulse Resp B/P (MAP) Pulse Ox O2 Delivery O2 Flow Rate FiO2 02/08/25 17:00 98.3 68 16 100/53 (69) 100 98.3 02/08/25 11:29 Nasal Cannula 3.0 02/08/25 11:29 32 Intake/Output Intake and Output 02/08/25 07:00 Intake Total 1610 ml Output Total 100 ml Balance 1510 ml Intake Oral 1360 ml IV Total 250 ml Output Urine Total 100 ml # Voids 3 # Bowel Movements 1 Exam GEN: Healthy appearing, well-developed, NAD. HEENT: NC/AT; MMM. CV: RRR, no m/r/g. LUNGS: CTAB, no w/r/c. ABD: Soft, NT/ND, NBS, no masses or organomegaly. EXT: skin Warm, well perfused. no rashes. No clubbing, cyanosis, or edema. NEURO: Ambulating with no limitations. No focal deficits. Medications Current Medications Medications Dose Ordered Sig/Romaine Route Start Time Stop Time Status Last Admin Dose Admin Enoxaparin Sodium 40 mg DAILY SC 01/27/25 10:00 UNV Acetaminophen 650 mg Q6HP PRN PO 01/26/25 15:30 Nitroglycerin 0.4 mg Q5MINP PRN SL 01/26/25 15:30 02/06/25 17:19 0.4 MG Ascorbic Acid 2,000 mg DAILY PO 01/27/25 10:00 UNV Isosorbide Mononitrate 60 mg DAILY PO 01/27/25 10:00 02/08/25 10:31 60 MG Ranolazine 500 mg BID PO 01/26/25 22:00 02/08/25 10:32 500 MG Atorvastatin Calcium 40 mg HS PO 01/26/25 22:00 02/07/25 21:03 40 MG Carvedilol 25 mg TID PO 01/26/25 22:00 02/08/25 14:19 25 MG Albuterol 2.5 mg Q6HWA NEB 01/26/25 18:00 02/08/25 11:29 2.5 MG Ipratropium [place] 0.5 mg Q6HWA NEB 01/26/25 18:00 02/08/25 11:29 0.5 MG Sucralfate 1 gm BID@0600,2200 PO 01/28/25 22:00 02/08/25 05:21 1 GM Docusate Sodium 100 mg BIDPRN PRN PO 01/28/25 13:15 01/30/25 22:15 100 MG Montelukast Sodium 10 mg HS PO 01/29/25 22:00 02/07/25 21:02 10 MG Magnesium Oxide 400 mg DAILY PO 01/31/25 10:00 02/08/25 10:32 400 MG Sodium Chloride 10 ml QSHIFT@10,22 IV 01/31/25 22:00 02/08/25 10:29 10 ML Prochlorperazine Edisylate 10 mg Q4HPRN PRN IV 02/02/25 01:00 02/04/25 13:02 10 MG Diagnostic Test (Pha) 1 strip Q6HR 02/03/25 06:00 02/08/25 12:18 1 STRIP Insulin Human Regular Q6HR SC 02/03/25 06:00 Dextrose 50 ml UD PRN IV 02/03/25 02:45 Pantoprazole Sodium 40 mg DAILY@0600 PO 02/06/25 06:00 02/08/25 05:22 40 MG Furosemide 40 mg DAILY PO 02/07/25 10:00 02/08/25 10:33 40 MG Apixaban 2.5 mg BID PO 02/06/25 22:00 02/08/25 10:31 2.5 MG Potassium Chloride 10 meq DAILY PO 02/07/25 10:00 02/08/25 10:32 10 MEQ Ceftriaxone Sodium 50 ml @ 100 mls/hr DAILY@09 IV 02/07/25 15:16 02/08/25 10:27 100 MLS/HR Tramadol HCl 50 mg Q4HP PRN PO 02/07/25 16:15 02/07/25 17:45 50 MG Acetaminophen/ Hydrocodone Bitart 1 tab Q4HP PRN PO 02/07/25 16:15 02/07/25 20:47 1 TAB Duloxetine HCl 30 mg DAILY PO 02/08/25 10:00 02/08/25 10:31 30 MG Melatonin 5 mg HS PO 02/08/25 22:00 Laboratory Results Laboratory Tests 02/08/25 04:30 Chemistry Test 02/08/25 04:30 Albumin 3.8 g/dL (3.2-4.8) Calcium Level 9.1 mg/dL (8.7-10.4) Total Protein 5.4 g/dL (5.7-8.2) L LFT Test 02/08/25 04:30 Alanine Aminotransferase (ALT) 12 U/L (7-40) Alkaline Phosphatase 67 U/L (46-116) Aspartate Amino Transferase (AST) 35 U/L (13-40) Total Bilirubin 0.2 mg/dL (0.2-1.0) Urinalysis Test 01/27/25 16:43 Urine Color Colorless (Yellow) Urine Clarity Clear (Clear) Urine pH 5.0 (5.0-9.0) Urine Specific [place] 1.009 (1.001-1.035) Urine Protein Negative (Negative) Urine Ketones Negative (Negative) Urine Blood Negative /uL (Negative) Urine Nitrite Negative (Negative) Urine Bilirubin Negative (Negative) Urine Urobilinogen Normal mg/dL (Negative) Urine Leukocyte Esterase Negative /uL (Negative) Urine RBC <1 /hpf (0 - 4) Urine Microscopic WBC < 1 /HPF (0-5) Urine Squamous Epithelial Cells Few /hpf (<5) Urine Bacteria Few /hpf (None Seen) H Urine Hyaline Casts Few /lpf (0 - 2) Urine Glucose Normal mg/dL (Normal) Microbiology Microbiology Date/Time Source Procedure Growth Status 02/05/25 13:40 Stool Stool Culture - Final Complete 02/05/25 13:40 Stool Shiga Toxin I & II - Final Complete 01/27/25 00:05 Nose MRSA Screen - Final Complete Labs and/or images reviewed: Labs reviewed by me, Image(s) reviewed by me Assessment/Plan Assessment/Plan 02/07 patient is here for GI bleed, EGD was done finding only gastritis and duodenitis and hiatal hernia. No source of bleeding found. Tissue sample taken and sent to path. GI recommend continue p.o. Protonix daily with b.i.d. Carafate. Follow up outpatient. Cardiology is following for AFib RVR. Currently patient is getting amiodarone load which will take 2 more days to convert to p.o.. Continue following. Patient has pain today. We will use Tylenol, tramadol home dose, [place] 10. We will add Cymbalta as well. Otherwise no changes and continue plan as per primary team plan. 02/08- no changes today. Pain is being controlled better. She wants something to help her sleep at night we will only go with melatonin. Lue trial of baclofen and ibuprofen. She has not chest pain EKGs benign no concern for STEMI or ST changes. We will continue transfer of amiodarone from IV to p.o., appreciate cardiology recommendations for that. Chest pain, rule out ACS Asthma/COPD, CVA, dyslipidemia, hypertension, mi, CHF, diabetes mellitus, CAD SP CABG X 3, pulmonary fibrosis 3 L home O2, GERD - also Cardiology Dr. Martinez - Continuing home meds ( Eliquis, Plavix, Lasix, Imdur, Protonix, ranolazine,, Lipitor, Coreg) - plavix, lipitor continue. no loading dose. r/o ACS with documentation coordinator consult. - tele monitor - chest pain protocol Cardiac diabetic diet GI prophylaxis-continue home dose p.o. Protonix DVT prophylaxis- home Eliquis Tele Full code Plan discussed with: Patient My Orders Orders - TAWANA ROGEL MD Procedure Category Date Status Time Melatonin (Melatonin) PHA 02/08/25 In Process 22:00 Date of Service: Feb 08, 2025 Billing Provider: TAWANA ROGEL MD Common Visit Codes: [id number] INP/OBS CARE(HIGH) TAWANA ROGEL MD Feb 08, 2025 17:15
--- NOTE | 2025-02-08 18:15 | DVHPN2 ---
Progress Note - Dictate Date Seen: Feb 08, 2025 Medical Necessity Reason Pt with a Central, PICC or Fol: No Subjective Patient seen and examined at the bedside within Telemetry. Vital signs stable. Chart reviewed. Patient's medications, allergies, past medical, surgical, social and family histories were obtained and reviewed as appropriate. vital signs Vital Sign Date Time Temp Pulse Resp B/P (MAP) Pulse Ox O2 Delivery O2 Flow Rate FiO2 02/08/25 17:00 98.3 68 16 100/53 (69) 100 98.3 02/08/25 11:29 Nasal Cannula 3.0 02/08/25 11:29 32 Total Intake and Output 02/07/25 02/07/25 02/08/25 14:59 22:59 06:59 Intake Total 910 ml 700 ml Output Total 100 ml Balance 810 ml 700 ml medications Current Medications Medications Dose Ordered Sig/Romaine Route Start Time Stop Time Status Last Admin Dose Admin Enoxaparin Sodium 40 mg DAILY SC 01/27/25 10:00 UNV Acetaminophen 650 mg Q6HP PRN PO 01/26/25 15:30 Nitroglycerin 0.4 mg Q5MINP PRN SL 01/26/25 15:30 02/06/25 17:19 0.4 MG Ascorbic Acid 2,000 mg DAILY PO 01/27/25 10:00 UNV Isosorbide Mononitrate 60 mg DAILY PO 01/27/25 10:00 02/08/25 10:31 60 MG Ranolazine 500 mg BID PO 01/26/25 22:00 02/08/25 10:32 500 MG Atorvastatin Calcium 40 mg HS PO 01/26/25 22:00 02/07/25 21:03 40 MG Carvedilol 25 mg TID PO 01/26/25 22:00 02/08/25 14:19 25 MG Albuterol 2.5 mg Q6HWA NEB 01/26/25 18:00 02/08/25 11:29 2.5 MG Ipratropium [place] 0.5 mg Q6HWA NEB 01/26/25 18:00 02/08/25 11:29 0.5 MG Sucralfate 1 gm BID@0600,2200 PO 01/28/25 22:00 02/08/25 05:21 1 GM Docusate Sodium 100 mg BIDPRN PRN PO 01/28/25 13:15 01/30/25 22:15 100 MG Montelukast Sodium 10 mg HS PO 01/29/25 22:00 02/07/25 21:02 10 MG Magnesium Oxide 400 mg DAILY PO 01/31/25 10:00 02/08/25 10:32 400 MG Sodium Chloride 10 ml QSHIFT@10,22 IV 01/31/25 22:00 02/08/25 10:29 10 ML Prochlorperazine Edisylate 10 mg Q4HPRN PRN IV 02/02/25 01:00 02/04/25 13:02 10 MG Diagnostic Test (Pha) 1 strip Q6HR 02/03/25 06:00 02/08/25 17:34 1 STRIP Insulin Human Regular Q6HR SC 02/03/25 06:00 Dextrose 50 ml UD PRN IV 02/03/25 02:45 Pantoprazole Sodium 40 mg DAILY@0600 PO 02/06/25 06:00 02/08/25 05:22 40 MG Furosemide 40 mg DAILY PO 02/07/25 10:00 02/08/25 10:33 40 MG Apixaban 2.5 mg BID PO 02/06/25 22:00 02/08/25 10:31 2.5 MG Potassium Chloride 10 meq DAILY PO 02/07/25 10:00 02/08/25 10:32 10 MEQ Ceftriaxone Sodium 50 ml @ 100 mls/hr DAILY@09 IV 02/07/25 15:16 02/08/25 10:27 100 MLS/HR Tramadol HCl 50 mg Q4HP PRN PO 02/07/25 16:15 02/07/25 17:45 50 MG Acetaminophen/ Hydrocodone Bitart 1 tab Q4HP PRN PO 02/07/25 16:15 02/07/25 20:47 1 TAB Duloxetine HCl 30 mg DAILY PO 02/08/25 10:00 02/08/25 10:31 30 MG Melatonin 5 mg HS PO 02/08/25 22:00 objective Vital signs: Stable during examination General: Lying comfortably in bed, no acute distress HEENT: [place] mucosa, no JVD Lungs: Scattered bronchial sounds, no rales or wheezing Cardiac: Regular rate and rhythm, no murmurs or thrills Abdomen: Soft, non-tender, no hepatomegaly, positive bowel sounds Extremities: No edema, dorsalis pedis 2+ bilaterally laboratory and microbiology Laboratory Tests 02/08/25 04:30 Test 02/08/25 04:30 Range/Units Serum Glucose 131 H 74-106 mg/dL Assessment/Plan The patient is a 74-year-old female presenting with pleuritic chest pain, productive cough, nasal congestion, and abdominal discomfort for the past several days. Chest pain is described as sharp, intermittent, and worsened with inspiration or coughing, without clear exertional component. She denies syncope or palpitations. Past Medical History: Coronary artery disease (CAD), status post CABG and PCI, including high-risk left main PCI at [facility] Paroxysmal atrial flutter/fibrillation (on Eliquis and Plavix as outpatient) Diastolic heart failure, pulmonary hypertension, COPD on home oxygen, pulmonary fibrosis Peripheral artery disease, GERD, asthma, anemia, anxiety, history of GI bleeding Status post pacemaker ([employer]), status post CVA Hiatal hernia, status post cholecystectomy and hysterectomy Former smoker Recent Workup: Serial troponins: Negative BRAD and right/left heart cath (01/13/2025): Multivessel CAD with apical aneurysm, increased LVEDP (19 mmHg), no pulmonary HTN. DANIELLE and left main stent patent. Diffuse disease in LAD with focal aneurysm. SVG with ostial and mid-segment disease; managed medically. Multiple echocardiograms (): LVEF [id number]%, mild concentric LVH, mild/moderate AI/MR/TR, mild biatrial enlargement, progressive increase in RVSP (up to 67 mmHg). BRAD (01/13/2025): No significant valvular disease Hospital Course: Developed atrial flutter with variable block, started on IV amiodarone; spontaneously converted to sinus rhythm, no cardioversion needed. Consideration for Watchman device as outpatient Gastrointestinal bleed: Required PRBC transfusion, Plavix and Eliquis on hold Hiatal hernia noted on EGD Colchicine started empirically to address possible component of pericarditis Assessment: Atypical chest pain, not consistent with ACS (serial troponins negative) Paroxysmal atrial flutter, now in sinus rhythm; likely precipitated by illness Multivessel CAD with history of left main stent, managed medically History of GI bleeding, currently stable post transfusion COPD/emphysema with likely mild exacerbation Pulmonary hypertension with increasing RVSP over serial echocardiograms History of chronic diastolic heart failure Hypokalemia (correcting) Hiatal hernia Sepsis and diarrhea, currently resolving Plan: Continue IV amiodarone until stable; may consider long-term rhythm control or rate control if recurrence Resume low-dose Eliquis when GI status stable, with long-term anticoagulation recommended given atrial flutter history Resume Plavix when safe due to CAD with left main stenting Continue statin, Coreg, Ranexa, and Imdur for cardiac optimization Watchman device remains outpatient consideration Continue supportive care, supplemental oxygen as needed Proceed with close rate and rhythm surveillance Proceed with close hemodynamic surveillance Proceed with optimized blood pressure control Transfuse to sustain HGB levels above 7.0 Sustain Magnesium level greater than 2.0 Sustain Potassium level greater than 4.0 Follow up renal function and electrolytes Management in Telemetry Will proceed to follow from a cardiac perspective Further recommendations per clinical progression All available labs, EKGs, and images were personally reviewed Patient's status, findings, and plan of care was discussed and reviewed with supervising physician Dr. Nielsen, who is in agreement with current plan of care. Plan of care discussed with and agreed upon by patient/Primary RN. Prognosis: Guarded Thank you for allowing me to participate in the care of this patient. Further recommendations will depend on clinical progression, hospitalist, and other consultants. Will continue to follow with Primary. If you have any questions, please do not hesitate to contact me. A total of 75 minutes was spent reviewing the patient record, examining the patient, making a diagnostic and therapeutic plan, discussing this plan with medical personnel, following up on diagnostic studies and following the patient for clinical stability excluding any and all procedures. At least 50% of this time was spent in direct, [id number] contact. Dietary Evaluation Review Comments: Continue current POC Expected Outcomes/Goals: To meet >75% estimated needs Fu 3-5 days Plan discussed with: Patient CC Plasma Assessment Blood Product Administration S: [id number] JOJO ALBERT NP Feb 08, 2025 18:15
[2025-02-08] MEDS: MELATONIN 5 MG TAB PO SCH (22:16)
[2025-02-09] VITALS (14 sets, daily range): BP systolic 111–139; BP diastolic 58–71; PULSE 57–104; RESP 16–20; TEMP 97.6–98.6; O2SAT 97–100
[2025-02-09] MEDS: BACLOFEN 10 MG TAB PO ONE (15:01)
--- NOTE | 2025-02-09 16:08 | DVHPN2 ---
Progress Note - Dictate Date Seen: Feb 09, 2025 Medical Necessity Reason Pt with a Central, PICC or Fol: No Subjective Patient seen and examined at the bedside within Telemetry. Vital signs stable. Hgb improved 10.5 Chart reviewed. Patient's medications, allergies, past medical, surgical, social and family histories were obtained and reviewed as appropriate. vital signs Vital Sign Date Time Temp Pulse Resp B/P (MAP) Pulse Ox O2 Delivery O2 Flow Rate FiO2 02/09/25 15:02 71 139/71 02/09/25 13:00 98.0 18 99 98.0 02/09/25 11:19 Nasal Cannula 3.0 02/09/25 11:19 32 Total Intake and Output 02/08/25 02/08/25 02/09/25 15:00 23:00 07:00 Intake Total 650 ml 400 ml Output Total 750 ml Balance -100 ml 400 ml medications Current Medications Medications Dose Ordered Sig/Romaine Route Start Time Stop Time Status Last Admin Dose Admin Enoxaparin Sodium 40 mg DAILY SC 01/27/25 10:00 UNV Acetaminophen 650 mg Q6HP PRN PO 01/26/25 15:30 Nitroglycerin 0.4 mg Q5MINP PRN SL 01/26/25 15:30 02/06/25 17:19 0.4 MG Ascorbic Acid 2,000 mg DAILY PO 01/27/25 10:00 UNV Isosorbide Mononitrate 60 mg DAILY PO 01/27/25 10:00 02/09/25 09:42 60 MG Ranolazine 500 mg BID PO 01/26/25 22:00 02/09/25 09:41 500 MG Atorvastatin Calcium 40 mg HS PO 01/26/25 22:00 02/08/25 22:17 40 MG Carvedilol 25 mg TID PO 01/26/25 22:00 02/09/25 15:02 25 MG Albuterol 2.5 mg Q6HWA NEB 01/26/25 18:00 02/09/25 11:19 2.5 MG Ipratropium [place] 0.5 mg Q6HWA NEB 01/26/25 18:00 02/09/25 11:19 0.5 MG Sucralfate 1 gm BID@0600,2200 PO 01/28/25 22:00 02/09/25 05:19 1 GM Docusate Sodium 100 mg BIDPRN PRN PO 01/28/25 13:15 01/30/25 22:15 100 MG Montelukast Sodium 10 mg HS PO 01/29/25 22:00 02/08/25 22:16 10 MG Magnesium Oxide 400 mg DAILY PO 01/31/25 10:00 02/09/25 09:42 400 MG Sodium Chloride 10 ml QSHIFT@10,22 IV 01/31/25 22:00 02/09/25 09:43 10 ML Prochlorperazine Edisylate 10 mg Q4HPRN PRN IV 02/02/25 01:00 02/04/25 13:02 10 MG Diagnostic Test (Pha) 1 strip Q6HR 02/03/25 06:00 02/09/25 11:45 1 STRIP Insulin Human Regular Q6HR SC 02/03/25 06:00 Dextrose 50 ml UD PRN IV 02/03/25 02:45 Pantoprazole Sodium 40 mg DAILY@0600 PO 02/06/25 06:00 02/09/25 05:20 40 MG Furosemide 40 mg DAILY PO 02/07/25 10:00 02/09/25 09:41 40 MG Apixaban 2.5 mg BID PO 02/06/25 22:00 02/09/25 09:42 2.5 MG Potassium Chloride 10 meq DAILY PO 02/07/25 10:00 02/09/25 09:43 10 MEQ Ceftriaxone Sodium 50 ml @ 100 mls/hr DAILY@09 IV 02/07/25 15:16 02/09/25 09:40 100 MLS/HR Tramadol HCl 50 mg Q4HP PRN PO 02/07/25 16:15 02/07/25 17:45 50 MG Acetaminophen/ Hydrocodone Bitart 1 tab Q4HP PRN PO 02/07/25 16:15 02/07/25 20:47 1 TAB Duloxetine HCl 30 mg DAILY PO 02/08/25 10:00 02/09/25 09:41 30 MG Melatonin 5 mg HS PO 02/08/25 22:00 02/08/25 22:16 5 MG objective Vital signs: Stable during examination General: Lying comfortably in bed, no acute distress HEENT: Learned mucosa, no JVD Lungs: Scattered bronchial sounds, no rales or wheezing Cardiac: Regular rate and rhythm, no murmurs or thrills Abdomen: Soft, non-tender, no hepatomegaly, positive bowel sounds Extremities: No edema, dorsalis pedis 2+ bilaterally laboratory and microbiology Laboratory Tests 02/08/25 04:30 Test 02/08/25 04:30 Range/Units Serum Glucose 131 H 74-106 mg/dL Assessment/Plan The patient is a 74-year-old female presenting with pleuritic chest pain, productive cough, nasal congestion, and abdominal discomfort for the past several days. Chest pain is described as sharp, intermittent, and worsened with inspiration or coughing, without clear exertional component. She denies syncope or palpitations. Past Medical History: Coronary artery disease (CAD), status post CABG and PCI, including high-risk left main PCI at [facility] Paroxysmal atrial flutter/fibrillation (on Eliquis and Plavix as outpatient) Diastolic heart failure, pulmonary hypertension, COPD on home oxygen, pulmonary fibrosis Peripheral artery disease, GERD, asthma, anemia, anxiety, history of GI bleeding Status post pacemaker ([employer]), status post CVA Hiatal hernia, status post cholecystectomy and hysterectomy Former smoker Recent Workup: Serial troponins: Negative BRAD and right/left heart cath (01/13/2025): Multivessel CAD with apical aneurysm, increased LVEDP (19 mmHg), no pulmonary HTN. DANIELLE and left main stent patent. Diffuse disease in LAD with focal aneurysm. SVG with ostial and mid-segment disease; managed medically. Multiple echocardiograms (): LVEF [id number]%, mild concentric LVH, mild/moderate AI/MR/TR, mild biatrial enlargement, progressive increase in RVSP (up to 67 mmHg). BRAD (01/13/2025): No significant valvular disease Hospital Course: Developed atrial flutter with variable block, started on IV amiodarone; spontaneously converted to sinus rhythm, no cardioversion needed. Consideration for Watchman device as outpatient Gastrointestinal bleed: Required PRBC transfusion, Plavix and Eliquis on hold Hiatal hernia noted on EGD Colchicine started empirically to address possible component of pericarditis Assessment: Atypical chest pain, not consistent with ACS (serial troponins negative) Paroxysmal atrial flutter, now in sinus rhythm; likely precipitated by illness Multivessel CAD with history of left main stent, managed medically History of GI bleeding, currently stable post transfusion COPD/emphysema with likely mild exacerbation Pulmonary hypertension with increasing RVSP over serial echocardiograms History of chronic diastolic heart failure Hypokalemia (correcting) Hiatal hernia Sepsis and diarrhea, currently resolving Plan: Continue IV amiodarone until stable; may consider long-term rhythm control or rate control if recurrence Resume low-dose Eliquis when GI status stable, with long-term anticoagulation recommended given atrial flutter history Resume Plavix when safe due to CAD with left main stenting Continue statin, Coreg, Ranexa, and Imdur for cardiac optimization Watchman device remains outpatient consideration Continue supportive care, supplemental oxygen as needed Proceed with close rate and rhythm surveillance Proceed with close hemodynamic surveillance Proceed with optimized blood pressure control Transfuse to sustain HGB levels above 7.0 Sustain Magnesium level greater than 2.0 Sustain Potassium level greater than 4.0 Follow up renal function and electrolytes Management in Telemetry Will proceed to follow from a cardiac perspective Further recommendations per clinical progression All available labs, EKGs, and images were personally reviewed Patient's status, findings, and plan of care was discussed and reviewed with supervising physician Dr. Nielsen, who is in agreement with current plan of care. Plan of care discussed with and agreed upon by patient/Primary RN. Prognosis: Guarded Thank you for allowing me to participate in the care of this patient. Further recommendations will depend on clinical progression, hospitalist, and other consultants. Will continue to follow with Primary. If you have any questions, please do not hesitate to contact me. A total of 75 minutes was spent reviewing the patient record, examining the patient, making a diagnostic and therapeutic plan, discussing this plan with medical personnel, following up on diagnostic studies and following the patient for clinical stability excluding any and all procedures. At least 50% of this time was spent in direct, [id number] contact. Dietary Evaluation Review Comments: Continue current POC Expected Outcomes/Goals: To meet >75% estimated needs Fu 3-5 days Plan discussed with: Patient CC Plasma Assessment Blood Product Administration S: [id number] JOJO ALBERT NP Feb 09, 2025 16:08
--- NOTE | 2025-02-09 16:49 | DVHPN2 ---
Subjective Patient having some improvement in symptoms Reviewed: H&P Changes from previous H/P or p: No Changes General: Per HPI Objective Vitals Vital Signs Date Time Temp Pulse Resp B/P (MAP) Pulse Ox O2 Delivery O2 Flow Rate FiO2 02/09/25 15:02 71 139/71 02/09/25 13:00 98.0 18 99 98.0 02/09/25 11:19 Nasal Cannula 3.0 02/09/25 11:19 32 Intake/Output Intake and Output 02/09/25 07:00 Intake Total 1050 ml Output Total 750 ml Balance 300 ml Intake Oral 1000 ml IV Total 50 ml Output Urine Total 750 ml # Voids 7 # Bowel Movements 1 Exam GEN: Healthy appearing, well-developed, NAD. HEENT: NC/AT; MMM. CV: RRR, no m/r/g. LUNGS: CTAB, no w/r/c. ABD: Soft, NT/ND, NBS, no masses or organomegaly. EXT: skin Warm, well perfused. no rashes. No clubbing, cyanosis, or edema. NEURO: Ambulating with no limitations. No focal deficits. Medications Current Medications Medications Dose Ordered Sig/Romaine Route Start Time Stop Time Status Last Admin Dose Admin Enoxaparin Sodium 40 mg DAILY SC 01/27/25 10:00 UNV Acetaminophen 650 mg Q6HP PRN PO 01/26/25 15:30 Nitroglycerin 0.4 mg Q5MINP PRN SL 01/26/25 15:30 02/06/25 17:19 0.4 MG Ascorbic Acid 2,000 mg DAILY PO 01/27/25 10:00 UNV Isosorbide Mononitrate 60 mg DAILY PO 01/27/25 10:00 02/09/25 09:42 60 MG Ranolazine 500 mg BID PO 01/26/25 22:00 02/09/25 09:41 500 MG Atorvastatin Calcium 40 mg HS PO 01/26/25 22:00 02/08/25 22:17 40 MG Carvedilol 25 mg TID PO 01/26/25 22:00 02/09/25 15:02 25 MG Albuterol 2.5 mg Q6HWA NEB 01/26/25 18:00 02/09/25 11:19 2.5 MG Ipratropium [place] 0.5 mg Q6HWA NEB 01/26/25 18:00 02/09/25 11:19 0.5 MG Sucralfate 1 gm BID@0600,2200 PO 01/28/25 22:00 02/09/25 05:19 1 GM Docusate Sodium 100 mg BIDPRN PRN PO 01/28/25 13:15 01/30/25 22:15 100 MG Montelukast Sodium 10 mg HS PO 01/29/25 22:00 02/08/25 22:16 10 MG Magnesium Oxide 400 mg DAILY PO 01/31/25 10:00 02/09/25 09:42 400 MG Sodium Chloride 10 ml QSHIFT@10,22 IV 01/31/25 22:00 02/09/25 09:43 10 ML Prochlorperazine Edisylate 10 mg Q4HPRN PRN IV 02/02/25 01:00 02/04/25 13:02 10 MG Diagnostic Test (Pha) 1 strip Q6HR 02/03/25 06:00 02/09/25 11:45 1 STRIP Insulin Human Regular Q6HR SC 02/03/25 06:00 Dextrose 50 ml UD PRN IV 02/03/25 02:45 Pantoprazole Sodium 40 mg DAILY@0600 PO 02/06/25 06:00 02/09/25 05:20 40 MG Furosemide 40 mg DAILY PO 02/07/25 10:00 02/09/25 09:41 40 MG Apixaban 2.5 mg BID PO 02/06/25 22:00 02/09/25 09:42 2.5 MG Potassium Chloride 10 meq DAILY PO 02/07/25 10:00 02/09/25 09:43 10 MEQ Ceftriaxone Sodium 50 ml @ 100 mls/hr DAILY@09 IV 02/07/25 15:16 02/09/25 09:40 100 MLS/HR Tramadol HCl 50 mg Q4HP PRN PO 02/07/25 16:15 02/07/25 17:45 50 MG Acetaminophen/ Hydrocodone Bitart 1 tab Q4HP PRN PO 02/07/25 16:15 02/07/25 20:47 1 TAB Duloxetine HCl 30 mg DAILY PO 02/08/25 10:00 02/09/25 09:41 30 MG Melatonin 5 mg HS PO 02/08/25 22:00 02/08/25 22:16 5 MG Laboratory Results Laboratory Tests 02/08/25 04:30 Urinalysis Test 01/27/25 16:43 Urine Color Colorless (Yellow) Urine Clarity Clear (Clear) Urine pH 5.0 (5.0-9.0) Urine Specific [place] 1.009 (1.001-1.035) Urine Protein Negative (Negative) Urine Ketones Negative (Negative) Urine Blood Negative /uL (Negative) Urine Nitrite Negative (Negative) Urine Bilirubin Negative (Negative) Urine Urobilinogen Normal mg/dL (Negative) Urine Leukocyte Esterase Negative /uL (Negative) Urine RBC <1 /hpf (0 - 4) Urine Microscopic WBC < 1 /HPF (0-5) Urine Squamous Epithelial Cells Few /hpf (<5) Urine Bacteria Few /hpf (None Seen) H Urine Hyaline Casts Few /lpf (0 - 2) Urine Glucose Normal mg/dL (Normal) Microbiology Microbiology Date/Time Source Procedure Growth Status 02/05/25 13:40 Stool Stool Culture - Final Complete 02/05/25 13:40 Stool Shiga Toxin I & II - Final Complete 01/27/25 00:05 Nose MRSA Screen - Final Complete Labs and/or images reviewed: Labs reviewed by me, Image(s) reviewed by me Assessment/Plan Assessment/Plan 02/07 patient is here for GI bleed, EGD was done finding only gastritis and duodenitis and hiatal hernia. No source of bleeding found. Tissue sample taken and sent to path. GI recommend continue p.o. Protonix daily with b.i.d. Carafate. Follow up outpatient. Cardiology is following for AFib RVR. Currently patient is getting amiodarone load which will take 2 more days to convert to p.o.. Continue following. Patient has pain today. We will use Tylenol, tramadol home dose, [place] 10. We will add Cymbalta as well. Otherwise no changes and continue plan as per primary team plan. 02/08- no changes today. Pain is being controlled better. She wants something to help her sleep at night we will only go with melatonin. Lue trial of baclofen and ibuprofen. She has not chest pain EKGs benign no concern for STEMI or ST changes. We will continue transfer of amiodarone from IV to p.o., appreciate cardiology recommendations for that. 02/09- patient doing well. Likely convert IV amnio to p.o. tomorrow. Given trial of baclofen which really helped patient yesterday and she wants another dose today. We will give another baclofen x1 today. RN informed. Continue pain control otherwise. EKG reviewed yesterday and there was no concern for ST changes. Chest pain, rule out ACS Asthma/COPD, CVA, dyslipidemia, hypertension, mi, CHF, diabetes mellitus, CAD SP CABG X 3, pulmonary fibrosis 3 L home O2, GERD - also Cardiology Dr. Martinez - Continuing home meds ( Eliquis, Plavix, Lasix, Imdur, Protonix, ranolazine,, Lipitor, Coreg) - plavix, lipitor continue. no loading dose. r/o ACS with body care manager consult. - tele monitor - chest pain protocol Cardiac diabetic diet GI prophylaxis-continue home dose p.o. Protonix DVT prophylaxis- home Eliquis Tele Full code Plan discussed with: Patient Date of Service: Feb 09, 2025 Billing Provider: TAWANA ROGEL MD Common Visit Codes: [id number] INP/OBS CARE(HIGH) TAWANA ROGEL MD Feb 09, 2025 16:49
--- NOTE | 2025-02-09 19:25 | DVHPN2 ---
Reviewed: Care Plan, H&P, Labs, Medications Changes from previous H/P or p: No Changes General: Per HPI Objective Vitals Vital Signs Date Time Temp Pulse Resp B/P (MAP) Pulse Ox O2 Delivery O2 Flow Rate FiO2 02/09/25 17:00 98.1 67 20 131/71 (91) 99 98.1 02/09/25 11:19 Nasal Cannula 3.0 02/09/25 11:19 32 Intake/Output Intake and Output 02/09/25 07:00 Intake Total 1050 ml Output Total 750 ml Balance 300 ml Intake Oral 1000 ml IV Total 50 ml Output Urine Total 750 ml # Voids 7 # Bowel Movements 1 General Appearance: Alert, Oriented X3 Cardiovascular: Regular rate, Normal S1 Back: Flank Tenderness Medications Current Medications Medications Dose Ordered Sig/Romaine Route Start Time Stop Time Status Last Admin Dose Admin Enoxaparin Sodium 40 mg DAILY SC 01/27/25 10:00 UNV Acetaminophen 650 mg Q6HP PRN PO 01/26/25 15:30 Nitroglycerin 0.4 mg Q5MINP PRN SL 01/26/25 15:30 02/06/25 17:19 0.4 MG Ascorbic Acid 2,000 mg DAILY PO 01/27/25 10:00 UNV Isosorbide Mononitrate 60 mg DAILY PO 01/27/25 10:00 02/09/25 09:42 60 MG Ranolazine 500 mg BID PO 01/26/25 22:00 02/09/25 09:41 500 MG Atorvastatin Calcium 40 mg HS PO 01/26/25 22:00 02/08/25 22:17 40 MG Carvedilol 25 mg TID PO 01/26/25 22:00 02/09/25 15:02 25 MG Albuterol 2.5 mg Q6HWA NEB 01/26/25 18:00 02/09/25 11:19 2.5 MG Ipratropium [place] 0.5 mg Q6HWA NEB 01/26/25 18:00 02/09/25 11:19 0.5 MG Sucralfate 1 gm BID@0600,2200 PO 01/28/25 22:00 02/09/25 05:19 1 GM Docusate Sodium 100 mg BIDPRN PRN PO 01/28/25 13:15 01/30/25 22:15 100 MG Montelukast Sodium 10 mg HS PO 01/29/25 22:00 02/08/25 22:16 10 MG Magnesium Oxide 400 mg DAILY PO 01/31/25 10:00 02/09/25 09:42 400 MG Sodium Chloride 10 ml QSHIFT@10,22 IV 01/31/25 22:00 02/09/25 09:43 10 ML Prochlorperazine Edisylate 10 mg Q4HPRN PRN IV 02/02/25 01:00 02/04/25 13:02 10 MG Diagnostic Test (Pha) 1 strip Q6HR 02/03/25 06:00 02/09/25 17:41 1 STRIP Insulin Human Regular Q6HR SC 02/03/25 06:00 Dextrose 50 ml UD PRN IV 02/03/25 02:45 Pantoprazole Sodium 40 mg DAILY@0600 PO 02/06/25 06:00 02/09/25 05:20 40 MG Furosemide 40 mg DAILY PO 02/07/25 10:00 02/09/25 09:41 40 MG Apixaban 2.5 mg BID PO 02/06/25 22:00 02/09/25 09:42 2.5 MG Potassium Chloride 10 meq DAILY PO 02/07/25 10:00 02/09/25 09:43 10 MEQ Ceftriaxone Sodium 50 ml @ 100 mls/hr DAILY@09 IV 02/07/25 15:16 02/09/25 09:40 100 MLS/HR Tramadol HCl 50 mg Q4HP PRN PO 02/07/25 16:15 02/07/25 17:45 50 MG Acetaminophen/ Hydrocodone Bitart 1 tab Q4HP PRN PO 02/07/25 16:15 02/07/25 20:47 1 TAB Duloxetine HCl 30 mg DAILY PO 02/08/25 10:00 02/09/25 09:41 30 MG Melatonin 5 mg HS PO 02/08/25 22:00 02/08/25 22:16 5 MG Laboratory Results Laboratory Tests 02/08/25 04:30 Urinalysis Test 01/27/25 16:43 Urine Color Colorless (Yellow) Urine Clarity Clear (Clear) Urine pH 5.0 (5.0-9.0) Urine Specific [place] 1.009 (1.001-1.035) Urine Protein Negative (Negative) Urine Ketones Negative (Negative) Urine Blood Negative /uL (Negative) Urine Nitrite Negative (Negative) Urine Bilirubin Negative (Negative) Urine Urobilinogen Normal mg/dL (Negative) Urine Leukocyte Esterase Negative /uL (Negative) Urine RBC <1 /hpf (0 - 4) Urine Microscopic WBC < 1 /HPF (0-5) Urine Squamous Epithelial Cells Few /hpf (<5) Urine Bacteria Few /hpf (None Seen) H Urine Hyaline Casts Few /lpf (0 - 2) Urine Glucose Normal mg/dL (Normal) Microbiology Microbiology Date/Time Source Procedure Growth Status 02/05/25 13:40 Stool Stool Culture - Final Complete 02/05/25 13:40 Stool Shiga Toxin I & II - Final Complete 01/27/25 00:05 Nose MRSA Screen - Final Complete Assessment/Plan Assessment/Plan #1 left chest pain ?pleuritic: toradol #2 anemia: s/p egd #3 cad s/p cabg s/p pci: per cardiology #4 pvd #5 copd/pulmonary fibrosis #6 htn #7 chronic resp failure #8 h/o cva #9 s/p a flutter/ rvr: on amiodarone, eliquis #10 s/p pacer advance care planning- full code- time spent 19 mins Plan discussed with: Patient Date of Service: Feb 01, 2025 Billing Provider: JAMAR LERMA DO Common Visit Codes: [id number] INP/OBS CARE(HIGH) JAMAR LERMA DO Feb 09, 2025 19:25
--- NOTE | 2025-02-09 19:35 | DVHPN2 ---
Consult Progress Note Date Seen: Feb 08, 2025 Subjective Patient reports: No new complaints (diarrhea is significalty slow) Objective vital signs Vital Sign Date Time Temp Pulse Resp B/P (MAP) Pulse Ox O2 Delivery O2 Flow Rate FiO2 02/09/25 17:00 98.1 67 20 131/71 (91) 99 98.1 02/09/25 11:19 Nasal Cannula 3.0 02/09/25 11:19 32 Total Intake and Output 02/08/25 02/08/25 02/09/25 15:00 23:00 07:00 Intake Total 650 ml 400 ml Output Total 750 ml Balance -100 ml 400 ml medications Current Medications Medications Dose Ordered Sig/Romaine Route Start Time Stop Time Status Last Admin Dose Admin Enoxaparin Sodium 40 mg DAILY SC 01/27/25 10:00 UNV Acetaminophen 650 mg Q6HP PRN PO 01/26/25 15:30 Nitroglycerin 0.4 mg Q5MINP PRN SL 01/26/25 15:30 02/06/25 17:19 0.4 MG Ascorbic Acid 2,000 mg DAILY PO 01/27/25 10:00 UNV Isosorbide Mononitrate 60 mg DAILY PO 01/27/25 10:00 02/09/25 09:42 60 MG Ranolazine 500 mg BID PO 01/26/25 22:00 02/09/25 09:41 500 MG Atorvastatin Calcium 40 mg HS PO 01/26/25 22:00 02/08/25 22:17 40 MG Carvedilol 25 mg TID PO 01/26/25 22:00 02/09/25 15:02 25 MG Albuterol 2.5 mg Q6HWA NEB 01/26/25 18:00 02/09/25 11:19 2.5 MG Ipratropium [place] 0.5 mg Q6HWA NEB 01/26/25 18:00 02/09/25 11:19 0.5 MG Sucralfate 1 gm BID@0600,2200 PO 01/28/25 22:00 02/09/25 05:19 1 GM Docusate Sodium 100 mg BIDPRN PRN PO 01/28/25 13:15 01/30/25 22:15 100 MG Montelukast Sodium 10 mg HS PO 01/29/25 22:00 02/08/25 22:16 10 MG Magnesium Oxide 400 mg DAILY PO 01/31/25 10:00 02/09/25 09:42 400 MG Sodium Chloride 10 ml QSHIFT@10,22 IV 01/31/25 22:00 02/09/25 09:43 10 ML Prochlorperazine Edisylate 10 mg Q4HPRN PRN IV 02/02/25 01:00 02/04/25 13:02 10 MG Diagnostic Test (Pha) 1 strip Q6HR 02/03/25 06:00 02/09/25 17:41 1 STRIP Insulin Human Regular Q6HR SC 02/03/25 06:00 Dextrose 50 ml UD PRN IV 02/03/25 02:45 Pantoprazole Sodium 40 mg DAILY@0600 PO 02/06/25 06:00 02/09/25 05:20 40 MG Furosemide 40 mg DAILY PO 02/07/25 10:00 02/09/25 09:41 40 MG Apixaban 2.5 mg BID PO 02/06/25 22:00 02/09/25 09:42 2.5 MG Potassium Chloride 10 meq DAILY PO 02/07/25 10:00 02/09/25 09:43 10 MEQ Ceftriaxone Sodium 50 ml @ 100 mls/hr DAILY@09 IV 02/07/25 15:16 02/09/25 09:40 100 MLS/HR Tramadol HCl 50 mg Q4HP PRN PO 02/07/25 16:15 02/07/25 17:45 50 MG Acetaminophen/ Hydrocodone Bitart 1 tab Q4HP PRN PO 02/07/25 16:15 02/07/25 20:47 1 TAB Duloxetine HCl 30 mg DAILY PO 02/08/25 10:00 02/09/25 09:41 30 MG Melatonin 5 mg HS PO 02/08/25 22:00 02/08/25 22:16 5 MG laboratory and microbiology Laboratory Tests 02/08/25 04:30 Test 02/08/25 04:30 Range/Units Serum Glucose 131 H 74-106 mg/dL Problem List/Assessment/Plan Problems(with codes): (1) COPD with acute lower respiratory infection (2) Diverticulosis (3) Colitis (4) UTI (urinary tract infection) (5) Leukocytosis (6) Hiatal hernia Problem List/Assessment/Plan ID Problem List: - Asthma - Chronic obstructive pulmonary disease (COPD) - Stroke - Dyslipidemia - Hypertension - Myocardial infarction - Congestive heart failure (CHF) - Diabetes mellitus - Coronary artery disease (CAD) - Pulmonary fibrosis - Gastroesophageal reflux disease (GERD) - Suspected colitis (rule out C. difficile) Assessment: This is a 61-year-old female with significant past medical history including asthma, COPD, stroke, dyslipidemia, hypertension, myocardial infarction, CHF, diabetes, CAD, and pulmonary fibrosis (on 3L oxygen), who presents with epigastric abdominal pain for two days (worsening over last 24 hours), accompanied by nausea, vomiting, and constipation. History of multiple prior admissions for similar symptoms (last admission ~1 year ago). Of note, patient was noted to have persistent diarrhea during current admission, with concern for possible C. difficile colitis. Infectious Disease consulted. 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 Laboratory findings: Initial leukocytosis (peak WBC 28.7), hemoglobin 8.4, platelets 226, sodium 143, BUN 16, creatinine 0.64. White count improved over course of admission to 13.3 on current evaluation. No fevers reported, though patient has been intermittently tachycardic. No recent hospitalizations or recent antibiotics except for current admissionno open wounds or CVA tenderness, normal bowel sounds, and no guarding. Amiodarone use noted for arrhythmia. Imaging and procedures: Chest CT with stable [id number] pulmonary fibrosis and cardiomegaly. Upper endoscopy findings as above. 02/05: whitecount is 8.6 , c diff testing is pending 02/06: c diff is negative . suspect gastroenteritis in the setting of chronic reflex disease and constipation resulting in sacral colitis 02/07: hemoglobin down to 7.3 and got a transfusion . appears to be clinically well , has loose stools however suspect related to ongoing therapies and prior constipation 02/08:diarrhea appears resolved , less concerned about colitis Plan: - monitor clinically off all antibiotic therapy - No indication for oral vancomycin at this stage - would send for stool culture testing and consider treating with ceftriaxone empirically in the meantime - Continue to monitor for clinical improvement and resolution of leukocytosis - Cardiology consulted to rule out acute coronary syndrome given chest pain; no interventions detailed in transcript - Follow up on any further infectious or cardiac workup as indicated Plan discussed with: Patient, Other Dietary Evaluation Review Comments: Continue current POC Expected Outcomes/Goals: To meet >75% estimated needs Fu 3-5 days CC Plasma Assessment Blood Product Administration S: [id number] ARTURO NORWOOD MD Feb 09, 2025 19:35
--- NOTE | 2025-02-09 19:51 | DVHPN2 ---
Consult Progress Note Date Seen: Feb 09, 2025 Subjective Patient reports: Feels better (no more diarrhea ) Objective vital signs Vital Sign Date Time Temp Pulse Resp B/P (MAP) Pulse Ox O2 Delivery O2 Flow Rate FiO2 02/09/25 17:00 98.1 67 20 131/71 (91) 99 98.1 02/09/25 11:19 Nasal Cannula 3.0 02/09/25 11:19 32 Total Intake and Output 02/08/25 02/08/25 02/09/25 15:00 23:00 07:00 Intake Total 650 ml 400 ml Output Total 750 ml Balance -100 ml 400 ml medications Current Medications Medications Dose Ordered Sig/Romaine Route Start Time Stop Time Status Last Admin Dose Admin Enoxaparin Sodium 40 mg DAILY SC 01/27/25 10:00 UNV Acetaminophen 650 mg Q6HP PRN PO 01/26/25 15:30 Nitroglycerin 0.4 mg Q5MINP PRN SL 01/26/25 15:30 02/06/25 17:19 0.4 MG Ascorbic Acid 2,000 mg DAILY PO 01/27/25 10:00 UNV Isosorbide Mononitrate 60 mg DAILY PO 01/27/25 10:00 02/09/25 09:42 60 MG Ranolazine 500 mg BID PO 01/26/25 22:00 02/09/25 09:41 500 MG Atorvastatin Calcium 40 mg HS PO 01/26/25 22:00 02/08/25 22:17 40 MG Carvedilol 25 mg TID PO 01/26/25 22:00 02/09/25 15:02 25 MG Albuterol 2.5 mg Q6HWA NEB 01/26/25 18:00 02/09/25 11:19 2.5 MG Ipratropium [place] 0.5 mg Q6HWA NEB 01/26/25 18:00 02/09/25 11:19 0.5 MG Sucralfate 1 gm BID@0600,2200 PO 01/28/25 22:00 02/09/25 05:19 1 GM Docusate Sodium 100 mg BIDPRN PRN PO 01/28/25 13:15 01/30/25 22:15 100 MG Montelukast Sodium 10 mg HS PO 01/29/25 22:00 02/08/25 22:16 10 MG Magnesium Oxide 400 mg DAILY PO 01/31/25 10:00 02/09/25 09:42 400 MG Sodium Chloride 10 ml QSHIFT@10,22 IV 01/31/25 22:00 02/09/25 09:43 10 ML Prochlorperazine Edisylate 10 mg Q4HPRN PRN IV 02/02/25 01:00 02/04/25 13:02 10 MG Diagnostic Test (Pha) 1 strip Q6HR 02/03/25 06:00 02/09/25 17:41 1 STRIP Insulin Human Regular Q6HR SC 02/03/25 06:00 Dextrose 50 ml UD PRN IV 02/03/25 02:45 Pantoprazole Sodium 40 mg DAILY@0600 PO 02/06/25 06:00 02/09/25 05:20 40 MG Furosemide 40 mg DAILY PO 02/07/25 10:00 02/09/25 09:41 40 MG Apixaban 2.5 mg BID PO 02/06/25 22:00 02/09/25 09:42 2.5 MG Potassium Chloride 10 meq DAILY PO 02/07/25 10:00 02/09/25 09:43 10 MEQ Ceftriaxone Sodium 50 ml @ 100 mls/hr DAILY@09 IV 02/07/25 15:16 02/09/25 09:40 100 MLS/HR Tramadol HCl 50 mg Q4HP PRN PO 02/07/25 16:15 02/07/25 17:45 50 MG Acetaminophen/ Hydrocodone Bitart 1 tab Q4HP PRN PO 02/07/25 16:15 02/07/25 20:47 1 TAB Duloxetine HCl 30 mg DAILY PO 02/08/25 10:00 02/09/25 09:41 30 MG Melatonin 5 mg HS PO 02/08/25 22:00 02/08/25 22:16 5 MG laboratory and microbiology Laboratory Tests 02/08/25 04:30 Test 02/08/25 04:30 Range/Units Serum Glucose 131 H 74-106 mg/dL Problem List/Assessment/Plan Problems(with codes): (1) COPD with acute lower respiratory infection (2) Diverticulosis (3) Colitis (4) UTI (urinary tract infection) (5) Leukocytosis (6) Hiatal hernia (7) COPD with acute exacerbation Problem List/Assessment/Plan ID Problem List: - Asthma - Chronic obstructive pulmonary disease (COPD) - Stroke - Dyslipidemia - Hypertension - Myocardial infarction - Congestive heart failure (CHF) - Diabetes mellitus - Coronary artery disease (CAD) - Pulmonary fibrosis - Gastroesophageal reflux disease (GERD) - Suspected colitis (rule out C. difficile) Assessment: This is a 61-year-old female with significant past medical history including asthma, COPD, stroke, dyslipidemia, hypertension, myocardial infarction, CHF, diabetes, CAD, and pulmonary fibrosis (on 3L oxygen), who presents with epigastric abdominal pain for two days (worsening over last 24 hours), accompanied by nausea, vomiting, and constipation. History of multiple prior admissions for similar symptoms (last admission ~1 year ago). Of note, patient was noted to have persistent diarrhea during current admission, with concern for possible C. difficile colitis. Infectious Disease consulted. 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 Laboratory findings: Initial leukocytosis (peak WBC 28.7), hemoglobin 8.4, platelets 226, sodium 143, BUN 16, creatinine 0.64. White count improved over course of admission to 13.3 on current evaluation. No fevers reported, though patient has been intermittently tachycardic. No recent hospitalizations or recent antibiotics except for current admissionno open wounds or CVA tenderness, normal bowel sounds, and no guarding. Amiodarone use noted for arrhythmia. Imaging and procedures: Chest CT with stable trnaacgu-[id number] pulmonary fibrosis and cardiomegaly. Upper endoscopy findings as above. 02/05: whitecount is 8.6 , c diff testing is pending 02/06: c diff is negative . suspect gastroenteritis in the setting of chronic reflex disease and constipation resulting in sacral colitis 7: hemoglobin down to 7.3 and got a transfusion . appears to be clinically well , has loose stools however suspect related to ongoing therapies and prior constipation 7:diarrhea appears resolved , less concerned about colitis 6: no fevers, leukocytosis resolved Plan: - can stop Ceftriaxone , will monitor clinically off all antibiotics - No indication for oral vancomycin at this stage - would send for stool culture testing and consider treating with ceftriaxone empirically in the meantime - Continue to monitor for clinical improvement and resolution of leukocytosis - Cardiology consulted to rule out acute coronary syndrome given chest pain; no interventions detailed in transcript - Follow up on any further infectious or cardiac workup as indicated Plan discussed with: Patient, Other Dietary Evaluation Review Comments: Continue current POC Expected Outcomes/Goals: To meet >75% estimated needs Fu 3-5 days CC Plasma Assessment Blood Product Administration S: [id number] ARTURO NORWOOD MD Feb 09, 2025 19:51
[2025-02-10] VITALS (16 sets, daily range): BP systolic 118–139; BP diastolic 61–72; PULSE 62–74; RESP 14–18; TEMP 96.7–97.9; O2SAT 94–100
--- NOTE | 2025-02-10 07:18 | ECG ---
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
--- NOTE | 2025-02-10 07:51 | ECG ---
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
--- NOTE | 2025-02-10 08:25 | DVHPN2 ---
Progress Note - Dictate Date Seen: Feb 10, 2025 Medical Necessity Reason Pt with a Central, PICC or Fol: No vital signs Vital Sign Date Time Temp Pulse Resp B/P (MAP) Pulse Ox O2 Delivery O2 Flow Rate FiO2 02/10/25 06:53 74 14 100 02/10/25 06:29 134/72 02/10/25 05:00 96.7 96.7 02/09/25 20:00 Nasal Cannula* 3 32 Total Intake and Output 02/09/25 02/09/25 02/10/25 15:00 23:00 07:00 Intake Total 850 ml 550 ml Output Total 650 ml Balance 200 ml 550 ml medications Current Medications Medications Dose Ordered Sig/Romaine Route Start Time Stop Time Status Last Admin Dose Admin Enoxaparin Sodium 40 mg DAILY SC 01/27/25 10:00 UNV Acetaminophen 650 mg Q6HP PRN PO 01/26/25 15:30 Nitroglycerin 0.4 mg Q5MINP PRN SL 01/26/25 15:30 02/06/25 17:19 0.4 MG Ascorbic Acid 2,000 mg DAILY PO 01/27/25 10:00 UNV Isosorbide Mononitrate 60 mg DAILY PO 01/27/25 10:00 02/09/25 09:42 60 MG Ranolazine 500 mg BID PO 01/26/25 22:00 02/09/25 22:18 500 MG Atorvastatin Calcium 40 mg HS PO 01/26/25 22:00 02/09/25 22:18 40 MG Carvedilol 25 mg TID PO 01/26/25 22:00 02/10/25 06:29 25 MG Albuterol 2.5 mg Q6HWA NEB 01/26/25 18:00 02/10/25 06:44 2.5 MG Ipratropium [place] 0.5 mg Q6HWA NEB 01/26/25 18:00 02/10/25 06:45 0.5 MG Sucralfate 1 gm BID@0600,2200 PO 01/28/25 22:00 02/10/25 06:29 1 GM Docusate Sodium 100 mg BIDPRN PRN PO 01/28/25 13:15 01/30/25 22:15 100 MG Montelukast Sodium 10 mg HS PO 01/29/25 22:00 02/09/25 22:18 10 MG Magnesium Oxide 400 mg DAILY PO 01/31/25 10:00 02/09/25 09:42 400 MG Sodium Chloride 10 ml QSHIFT@10,22 IV 01/31/25 22:00 02/09/25 22:19 10 ML Prochlorperazine Edisylate 10 mg Q4HPRN PRN IV 02/02/25 01:00 02/04/25 13:02 10 MG Diagnostic Test (Pha) 1 strip Q6HR 02/03/25 06:00 02/10/25 06:00 1 STRIP Insulin Human Regular Q6HR SC 02/03/25 06:00 Dextrose 50 ml UD PRN IV 02/03/25 02:45 Pantoprazole Sodium 40 mg DAILY@0600 PO 02/06/25 06:00 02/10/25 06:29 40 MG Furosemide 40 mg DAILY PO 02/07/25 10:00 02/09/25 09:41 40 MG Apixaban 2.5 mg BID PO 02/06/25 22:00 02/09/25 22:18 2.5 MG Potassium Chloride 10 meq DAILY PO 02/07/25 10:00 02/09/25 09:43 10 MEQ Tramadol HCl 50 mg Q4HP PRN PO 02/07/25 16:15 02/07/25 17:45 50 MG Acetaminophen/ Hydrocodone Bitart 1 tab Q4HP PRN PO 02/07/25 16:15 02/07/25 20:47 1 TAB Duloxetine HCl 30 mg DAILY PO 02/08/25 10:00 02/09/25 09:41 30 MG Melatonin 5 mg HS PO 02/08/25 22:00 02/09/25 22:18 5 MG laboratory and microbiology Laboratory Tests 02/08/25 04:30 Test 02/08/25 04:30 Range/Units Serum Glucose 131 H 74-106 mg/dL Assessment/Plan Had EGD and found to have Hiatal Hernia Had diarrhea and some GI bleeding, resolved s/p PRBC transfusion for GI bleeding Back on Eliquis Tele reveals sinus rhythm Hemodynamically stable 74-year-old female presented with chest discomfort/productive cough/nasal congestion and abdominal pain. Chest pains have been pleuritic type. Cardiology was involved for cardiac aspects of care. Does have baseline history of coronary artery disease and status post bypass surgery. Is known to have abnormal nuclear stress test and the patient had previously decided to manage it medically. Patient had right and left heart catheterization and BRAD earlier this month. Since admission, serial troponin has been negative. Lying comfortably flat in bed. No JVD. pink mucosa. Lungs reveal scattered rhonchi. Cardiac: Regular, no thrills/murmur. Abdomen is soft. No hepatomegaly. Bowel sounds positive. Lower extremities do not reveal edema. Dorsalis pedis is 2+ bilateral Past medical history includes diabetes mellitus, hyperlipidemia, hypertension, diastolic heart failure, peripheral artery disease, GERD, anxiety, anemia, asthma, coronary artery disease, status post CABG and PCI, status post pacemaker implantation ([employer]), status post old CVA, paroxysmal atrial flutter (on Eliquis), COPD on home oxygen, fibromyalgia, pulmonary hypertension, history of poor functional status, history of GI bleeding, pulmonary fibrosis, hiatal hernia, ex-smoker, status post gold cholecystectomy/hysterectomy. Is known to have closed grafts for CABG. Has had high risk PCI/left main in [facility] (few years back). Does have history of abnormal nuclear stress test and the plan has been to manage her medically. Has been kept on Eliquis and Plavix as outpatient. She is ex-smoker. Left heart catheterization revealed multivessel coronary artery disease. SVG nourishing 1 of the ramus intermedius was diseased but the decision was to manage it medically (ramus intermedius had good flow from patent left main (left main was stented before). Has been offered to go for Watchman device as outpatient. Echocardiogram of January 09, 2023 revealed LVEF of 55 to 60%, mild concentric left ventricular hypertrophy, no wall motion abnormality, mild biatrial enlargement, pacing wire in right-sided chambers, mild to moderate aortic insufficiency, mild mitral regurgitation, mild to moderate tricuspid regurgitation and right ventricular systolic pressure of 35 mmHg Echocardiogram of March 07, 2023 had revealed ejection fraction of 55 to 60%, mild concentric left ventricular hypertrophy, mild AI/MR/PI, mild biatrial enlargement, pacemaker wire in the right-sided chambers and right ventricular systolic pressure of 34 mmHg Echocardiogram of September 06, 2023 revealed ejection fraction of 55% and pacemaker in right-sided chambers Echocardiogram of December 26, 2023 had reported ejection fraction of 55-60%, no wall motion abnormality, [id number] aortic insufficiency, mild MR, moderate TR and right ventricular systolic pressure 42 mm Hg Echocardiogram of August 30, 2024 reported ejection fraction of 55-60%, no wall motion abnormality, mild biatrial enlargement, pacemaker in the right-sided chambers, mild AI/MR and moderate tricuspid regurgitation. Right ventricular systolic pressure was assessed at 41 mm Hg. Echocardiogram of December 20, 2024 (performed in the office) revealed ejection fraction of 60-65%, mild concentric left ventricular hypertrophy, pseudo normal LV filling, mild biatrial enlargement, mild right ventricular enlargement with good systolic function, moderate aortic insufficiency, aortic sclerosis with no stenosis, mild mitral annular calcification, [id number] MR/TR and right ventricular systolic pressure of 53 mm Hg. Echocardiogram of January 10, 2025 revealed mild concentric left ventricular hypertrophy, ejection fraction of 60-65%, pseudo normal LV filling, [id number] aortic insufficiency, mild mitral regurgitation, moderate tricuspid regurgitation and right ventricular systolic pressure of 67 mm Hg. BRAD of January 13, 2025 revealed no significant valvular disease Right and left heart catheterization of January 13, 2025 revealed multivessel coronary artery disease LVEF of around 50%; Apical aneurysm; Increased LVEDP (19 mm Hg); No pulmonary hypertension; Patent left main stent into LCX (dominant vessel) with no significant disease; Proximal LAD was HEELER MACHINE with minor parallel collaterals. LAD was a diffusely diseased vessel with areas of focal aneurysm; Presence of 2 ramus intermedius; One of the ramus intermedius is with mild disease; Second ramus: Relatively small vessel with mild disease. There was SVG 'also' nourishing it. SVG itself had ostial and middle SVG section disease (decision was made to manage it medically); DANIELLE was atretic but patent; There was 2 other SVG's which were HEELER MACHINE at ostium and suggestion was for medical therapy WBC: 7.9 - 4.1 - 5.3 - 6.0 - 5.9 - 28.7 - 18.2 - 13.3 - 8.6 - 8.4 - 8.5 Hemoglobin: 8.4 - 7.7 - 8.1 - 8.0 - 8.9 - 9.8 - 7.5 - 7.3 - 9.1 (s/p PRBC transfusion) - 10.5 - 10.3 Creatinine: 0.64 - 0.62 - 0.90 - 0.81 - 1.18 - 1.12 - 0.82 - 0.69 - 0.69 - 0.75 Potassium: 3.8 - 3.7 - 3.6 - 3.8 - 3.9 - 3.4 - 3.5 - 3.8 - 3.7 - 3.5 Troponin (high sensitive): 4 - 3 - 7 - 7 - 7 BNP: 454.54 - 478.41 Stool OB: positive Chest x-ray revealed: 1. Improvement in left lung base consolidation since prior. This could be improvement in atelectasis or pneumonia. 2. Mild cardiomegaly. Prior median sternotomy and CABG. 3. Diffuse reticular and interstitial opacities of the lungs likely related to known fibrosis. Repeat chest xry reported: IMPRESSION: Interval placement of right PICC with tip in appropriate position. Repeat chest xry revealed: IMPRESSION: 1. Mildly progressive diffuse increased prominence of the pulmonary vasculature and interstitium and likely small left pleural effusion. 2. Right PICC. Repeat chest xry revealed: IMPRESSION: Slightly improved CHF. CT of chest revealed: IMPRESSION: Stable changes of moderate to severe pulmonary fibrosis. Cardiomegaly. EKG revealed sinus rhythm with nonspecific ST-T changes. Later revealed atrial flutter with block Telemetry reveals sinus rhythm and occasions of paced rhythm. Later, ongoing atrial flutter with variable block. Later: NSR. Later again: Atrial flutter with 2:1 block Patient is a 74-year-old female who presented with atypical chest discomfort/productive cough/nasal congestion/abdominal pain for few days. Chest pain has been pleuritic. Acute coronary syndrome is not considered. Serial high sensitive troponin has been negative. It is of note that the patient had right and left heart catheterization earlier this month and the result pointed toward medical management. s/p EGD: Hiatal Hernia. Found to have Atrial flutter with variable block and started on Amio drip. Atypical chest pain, rule out component of Pericarditis. Will empirically start Colchicine. Ongoing atrial flutter. On IV Amiodarone. Was told that if IV amiodarone does not work, (in few days) may need / suggest for BRAD/Cardioversion (She herself is against it at this point). Converted to sinus rhythm (no need for Cardioversion). PRBC transfusion for GI bleeding. Secondary to GI bleeding (in need of PRBC transfusion): Plavix on hold. Had repeated Atrial flutter and is back on IV Amiodarone. Chest discomfort, atypical Pleuritic chest pain COPD exacerbation Coronary artery disease, status post CABG/PCI Paroxysmal atrial flutter (on Eliquis as outpatient) COPD/Emphysema Pulmonary fibrosis Pulmonary hypertension, history of Chronic diastolic heart failure Status post pacemaker Hypokalemia Paroxysmal atrial flutter with RVR Hiatal Hernia Sepsis Diarrhea GI bleeding, significant, s/p PRBC transfusion Cardiac suggestions for management: Managed on telemetry Fluid resuscitation Follow-up electrolytes and kidney function and correct abnormalities, keep potassium above 4 magnesium above 2 Put back on oral Amiodarone Restart Plavix On Eliquis Optimized medical therapy halfway continuation of full anticoagulation for history of paroxysmal atrial flutter is suggested (on Eliquis). medical terminologist continuation of Plavix (CAD h/o Left Main stenting) is suggested. (as she had significant GI bleeding: on hold now) Antianginal therapy Continuation of Statin/Ranexa/Imdur/Coreg is suggested Cardiac wilcox, is stable and can be followed as outpatient Further evaluation and management depends on the above and clinical course A total of 55 minutes was spent reviewing the patient record, examining the patient, making a diagnostic and therapeutic plan, discussing this plan with medical personnel, following up on diagnostic studies and following the patient for clinical stability excluding any and all procedures. At least 50% of this time was spent in direct, [id number] contact. Thank you for allowing me to participate in this patient's care. Further recommendations will depend on patient's clinical course. Please do not hesitate to contact me if you have any questions or concerns. This medical document was created using electronic medical record system with [employer] computerized dictation system. Although this document has been carefully reviewed, there may still be some phonetic and typographical errors. These areas are purely typographical due to the imperfection of the software programs, and do not reflect any compromise in the patient's medical care. Dietary Evaluation Review Comments: Continue current POC Expected Outcomes/Goals: To meet >75% estimated needs Fu 3-5 days Plan discussed with: Patient, Other (nurse) CC Plasma Assessment Blood Product Administration S: [id number] AJAY SMALLWOOD MD Feb 10, 2025 08:25
[2025-02-10] MEDS ORDERED: AMIO200T33 PO (19:14)
[2025-02-10] MEDS ORDERED: SUCR1SUS26 PO (19:14)
[2025-02-10] MEDS ORDERED: PANT40TA2 PO (19:14)
--- NOTE | 2025-02-10 19:17 | DVHDS2 ---
Discharge Summary Date of Admission Jan 26, 2025 at 15:21 Date of Discharge: Feb 10, 2025 Labs/Diagnostic Data: Laboratory Results Test 02/10/25 17:01 02/08/25 04:30 02/07/25 06:15 02/06/25 22:17 POC Glucose 136 mg/dl (70-106) White Blood Count 8.5 10^3/uL (4.4-10.8) Red Blood Count 3.50 10^6/uL (4.0-5.20) Hemoglobin 10.3 g/dL (12.2-16.2) Hematocrit 30.7 % (36.0-46.0) Mean Corpuscular Volume 87.6 fL (80.0-100.0) Mean Corpuscular Hemoglobin 29.3 pg (28.0-32.0) Mean Corpuscular Hemoglobin Concent 33.5 g/dL (32.0-36.0) Red Cell Distribution Width 17.5 % (11.8-14.3) Platelet Count 282 10^3/uL (140-450) Mean Platelet Volume 7.5 fL (6.9-10.8) Neutrophils (%) (Auto) 77.1 % (37.0-80.0) Lymphocytes (%) (Auto) 8.2 % (10.0-50.0) Monocytes (%) (Auto) 9.8 % (0.0-12.0) Eosinophils (%) (Auto) 4.5 % (0.0-7.0) Basophils (%) (Auto) 0.4 % (0.0-2.0) Neutrophils # (Auto) 6.5 10 ^3/uL (1.6-8.6) Lymphocytes # (Auto) 0.7 10 ^3/uL (0.4-5.4) Monocytes # (Auto) 0.8 10 ^3/uL (0-1.3) Eosinophils # (Auto) 0.4 10 ^3/uL (0-0.8) Basophils # (Auto) 0 10 ^3/uL (0-0.2) Nucleated Red Blood Cells 0.1 % Sodium Level 136 mmol/L (136-145) Potassium Level 3.5 mmol/L (3.5-5.1) Chloride Level 95 mmol/L (98-107) Carbon Dioxide Level 29 mmol/L (20-31) Anion Gap 12 (5-15) Blood Urea Nitrogen 10 mg/dL (9-23) Creatinine 0.75 mg/dL (0.550-1.02) Glomerular Filtration Rate Calc 83 mL/min (>90) BUN/Creatinine Ratio 13.3 (10.0-20.0) Serum Glucose 131 mg/dL (74-106) Calcium Level 9.1 mg/dL (8.7-10.4) Total Bilirubin 0.2 mg/dL (0.2-1.0) Aspartate Amino Transferase (AST) 35 U/L (13-40) Alanine Aminotransferase (ALT) 12 U/L (7-40) Alkaline Phosphatase 67 U/L (46-116) Total Protein 5.4 g/dL (5.7-8.2) Albumin 3.8 g/dL (3.2-4.8) B-Type Natriuretic Peptide 478.41 pg/mL (0-100) Troponin I High Sensitivity 7 ng/L (</=34) Test 02/05/25 06:04 02/02/25 22:55 02/02/25 13:06 02/01/25 21:00 Magnesium Level 2.1 mg/dL (1.6-2.6) Stool for White Cells Moderate Differential Total Cells Counted 100.0 (100) Neutrophils % (Manual) 83 (37.0-80.0) Band Neutrophils % (Manual) 7 Lymphocytes % (Manual) 3 (10.0-50.0) Monocytes % (Manual) 7 (0-12) Eosinophils % (Manual) 0 (0-7) Basophils % (Manual) 0 (0.0-2.0) Metamyelocytes % (manual) 0 Myelocytes % (Manual) 0 Promyelocytes % (Manual) 0 Blast Cells % (Manual) 0 Reactive Lymphocytes 0 Platelet Estimate Adequate Anisocytosis (manual) Slight Stool Occult Blood Positive (Negative) Stool Occult Blood Sample #3 (Negative) Test 01/28/25 05:52 01/27/25 16:43 01/27/25 06:26 Prothrombin Time 13.8 sec (9.3-11.8) Prothrombin Time INR 1.34 (0.9-1.15) Activated Partial Thromboplast Time 28.6 SEC (24.5-34.5) Urine Color Colorless (Yellow) Urine Clarity Clear (Clear) Urine pH 5.0 (5.0-9.0) Urine Specific Cost 1.009 (1.001-1.035) Urine Protein Negative (Negative) Urine Ketones Negative (Negative) Urine Blood Negative /uL (Negative) Urine Nitrite Negative (Negative) Urine Bilirubin Negative (Negative) Urine Urobilinogen Normal mg/dL (Negative) Urine Leukocyte Esterase Negative /uL (Negative) Urine RBC <1 /hpf (0 - 4) Urine Microscopic WBC < 1 /HPF (0-5) Urine Squamous Epithelial Cells Few /hpf (<5) Urine Bacteria Few /hpf (None Seen) Urine Hyaline Casts Few /lpf (0 - 2) Urine Glucose Normal mg/dL (Normal) Hepatitis B Surface Antigen Negative (Negative) Hepatitis C Antibody Negative (Negative) Other Laboratory Tests 02/08/25 04:30 Brief Hx & Hospital Course: 02/07 patient is here for GI bleed, EGD was done finding only gastritis and duodenitis and hiatal hernia. No source of bleeding found. required 1 u pRBC. Tissue sample taken and sent to path. GI recommend continue p.o. Protonix daily with b.i.d. Carafate. Follow up outpatient. Cardiology is following for AFib RVR. Currently patient is getting amiodarone load which will take 2 more days to convert to p.o. Continue following. Patient has pain today. We will use Tylenol, tramadol home dose, [place] 10. We will add Cymbalta as well. Otherwise no changes and continue plan as per primary team plan. C diff is negative. Stool culture negative. History of Present Illness 61 year old female presents to the ED via EMS with a chief compliant of abdominal pain onset 2 days. Patient states she began experiencing abdominal pain, epigastric region, 2 days ago, noticed pain worsen today. Patient is currently experiencing nausea, vomiting, constipation. Per EMS, patient was given Zofran PO in route to ED. She has been seen at [facility] multiple times for similar symptoms, last admission January 2024, patient was recommended to stop marijuana use, patient admits she continues smoking marijuana. PMHx Asthma/COPD, CVA, dyslipidemia, hypertension, mi, CHF, diabetes mellitus, CAD SP CABG X 3, pulmonary fibrosis 3 L home O2, GERD. Denies chest pain, shortness of breath, dizziness, blurry vision, dysuria, hematuria, fevers. No other symptoms or modifying factors present at this time. summary: 02/08- no changes today. Pain is being controlled better. She wants something to help her sleep at night we will only go with melatonin. Lue trial of baclofen and ibuprofen. She has not chest pain EKGs benign no concern for STEMI or ST changes. We will continue transfer of amiodarone from IV to p.o., appreciate cardiology recommendations for that. 02/09- patient doing well. Likely convert IV amnio to p.o. tomorrow. Given trial of baclofen which really helped patient yesterday and she wants another dose today. We will give another baclofen x1 today. RN informed. Continue pain control otherwise. EKG reviewed yesterday and there was no concern for ST changes. 02/10- cardiology has reviewed patient today. They have converted Amiodaroneto p.o.. Cardiology has signed off with outpatient plan. GI has signed off with outpatient plan. ID is not concern for any infectious etiologies of diarrhea. Vital signs stable for discharge. Stable for discharge as per plan below. Discharge diagnosis: GI bleed, active bleed ruled out gastroenteritis possible, Gastritis with duodenitis AFib RVR, rate controlled, RVR resolved atrial fibrillation, on chronic anticoagulation chronic anticoagulation with Eliquis Chest pain, ruled out ACS , musculoskeletal etiology possible Asthma/COPD, CVA, dyslipidemia, hypertension, history of mi, CHF, diabetes mellitus, CAD SP CABG X 3, pulmonary fibrosis 3 L home O2, GERD Discharge plan: - pain is controlled with home medications tramadol, Tylenol. Okay to continue, PCP to follow up. - Take Protonix 40 mg daily - Take Carafate suspension 10mL twice daily - No further need for Cymbalta - we will give patient small short course of as needed baclofen as it was beneficial to her chest pain during hospital stay. Can use as needed. - Continuation of Statin/Ranexa/Imdur/Coreg - start oral Amiodarone - Restart Plavix - continue Eliquis - Stopped Brilinta - diarrhea resolved, no further antibiotics needed. - Okay to continue cardiac diet as tolerated. - Continue other home medications not mentioned above - follow up with PCP to review discharge. PCP to review pathology results from endoscopy. - close follow up with Cardiology for med rec Condition at Discharge: Fair Final Diagnosis/Problems List GI bleed, active bleed ruled out gastroenteritis possible, Gastritis with duodenitis AFib RVR, rate controlled, RVR resolved atrial fibrillation, on chronic anticoagulation chronic anticoagulation with Eliquis Chest pain, ruled out ACS , musculoskeletal etiology possible Asthma/COPD, CVA, dyslipidemia, hypertension, history of mi, CHF, diabetes mellitus, CAD SP CABG X 3, pulmonary fibrosis 3 L home O2, GERD Discharge Disposition: Home Discharge Instruct/Medications Diet: Consistent carbohydrate, Cardiac 2g Na,low cholest Diet comment: See below Activity: No Restrictions, As Tolerated Follow Up/Referral: See below Medications: See below Scheduled Amiodarone Hcl (Amiodarone Hcl), 1 TAB PO HS Apixaban Base (Eliquis), 2.5 MG PO BID Ascorbic Acid (Vitamin C Tablet), 2,000 MG PO DAILY, (Reported) Atorvastatin Calcium (Atorvastatin Calcium), 1 TAB PO HS, (Reported) Carvedilol (Carvedilol), 1 TAB PO TID, (Reported) Clopidogrel Bisulfate (Plavix), 75 MG PO DAILY Dicyclomine Hcl (Bentyl Capsule), 1 CAP PO QID PRN, (Reported) Evolocumab (Repatha), 1 ML SC Q2WEEK, (Reported) Ferrous Sulfate (Ferosul), 1 TAB PO BID, (Reported) Vrffguicjlf-Qykxstyvxkic-Xqkzr (Trelegy Ellipta 200-62.5-25 Mcg/INH), 1 PUFF IN DAILY, (Reported) Furosemide (Furosemide), 1 TAB PO DAILY, (Reported) Hionlxhunpb-Ohgpdtgipba-Tqy C- (Glucosamine Chondroitin), 1,500 MG PO BID, (Reported) Isosorbide Mononitrate (Isosorbide Mononitrate Er), 1 TAB PO DAILY, (Reported) Magnesium Oxide (Magnesium Oxide), 1 TAB PO DAILY, (Reported) Montelukast Sodium (Montelukast Sodium), 1 TAB PO DAILY, (Reported) Pantoprazole Sodium Sesquihydr (Pantoprazole Sodium), 1 TAB PO DAILY, (Reported) Pantoprazole Sodium Sesquihydr (Protonix), 40 MG PO DAILY Potassium Chloride (K-Tabs), 1 TAB.CHEW PO DAILY, (Reported) Ranolazine (Ranolazine ER), 1 TAB PO BID, (Reported) Sucralfate (Carafate Susp), 10 ML PO BID Ticagrelor Base (Brilinta), 1 TAB PO BID, (Reported) Zinc Sulfate (Zinc Sulfate), 50 MG PO DAILY, (Reported) Scheduled PRN Docusate Sodium (Docusate Sodium), 100 MG PO BIDPRN PRN Nitroglycerin (Nitroglycerin Lingual), 0.4 MG TL BID PRN for FOR CHEST PAIN, (Reported) Ondansetron Odt 4MG Tab (Zofran Po), 4 MG PO Q8HR PRN Tramadol Hcl (Tramadol Hcl), 50 MG PO BID PRN for PAIN SCALE 1 THRU 6, (Reported) Discharge Statement: "Patient was advised to return to the ER or call 911 if any headaches, dizziness, shortness of breath, chest pain, abdominal pain, bleeding, fevers, or worsening of medical condition. Patient was counseled about treatment plan, medications, possible side effects, patientverbalized understanding. All questions were answered to the best of my ability. This discharge took greater then 30 minutes in planning, reviewing documentation, counseling the patient, and discussing with other team members." Date of Service: Feb 10, 2025 Billing Provider: TAWANA ROGEL MD Common Visit Codes: 55851-WDK/OBS DISCH DAY >30min TAWANA ROGEL MD Feb 10, 2025 19:17
[2025-02-10] MEDS: AMIODARONE HCL 200 MG TAB PO SCH (21:30)
--- NOTE | 2025-02-10 22:46 | DVHPN2 ---
Progress Note - Dictate Date Seen: Feb 10, 2025 Medical Necessity Reason Pt with a Central, PICC or Fol: No Subjective Patient seen at bedside resting comfortably No new complaints and patient has clinically improved There was no diarrhea or abdominal pain Her stool for C diff and bacterial culture were negative On PPI and Carafate for hiatal hernia and gastritis vital signs Vital Sign Date Time Temp Pulse Resp B/P (MAP) Pulse Ox O2 Delivery O2 Flow Rate FiO2 02/10/25 21:59 97.9 71 17 99 02/10/25 21:34 139/88 02/10/25 18:53 Nasal Cannula 2.0 02/10/25 18:53 28 Total Intake and Output 02/09/25 02/09/25 02/10/25 15:00 23:00 07:00 Intake Total 850 ml 550 ml Output Total 650 ml Balance 200 ml 550 ml medications Current Medications Medications Dose Ordered Sig/Romaine Route Start Time Stop Time Status Last Admin Dose Admin Enoxaparin Sodium 40 mg DAILY SC 01/27/25 10:00 UNV Acetaminophen 650 mg Q6HP PRN PO 01/26/25 15:30 Nitroglycerin 0.4 mg Q5MINP PRN SL 01/26/25 15:30 02/06/25 17:19 0.4 MG Ascorbic Acid 2,000 mg DAILY PO 01/27/25 10:00 UNV Isosorbide Mononitrate 60 mg DAILY PO 01/27/25 10:00 02/10/25 08:58 60 MG Ranolazine 500 mg BID PO 01/26/25 22:00 02/10/25 21:31 500 MG Atorvastatin Calcium 40 mg HS PO 01/26/25 22:00 02/10/25 21:34 40 MG Carvedilol 25 mg TID PO 01/26/25 22:00 02/10/25 21:34 25 MG Albuterol 2.5 mg Q6HWA NEB 01/26/25 18:00 02/10/25 18:53 2.5 MG Ipratropium [place] 0.5 mg Q6HWA NEB 01/26/25 18:00 02/10/25 18:53 0.5 MG Sucralfate 1 gm BID@0600,2200 PO 01/28/25 22:00 02/10/25 21:30 1 GM Docusate Sodium 100 mg BIDPRN PRN PO 01/28/25 13:15 01/30/25 22:15 100 MG Montelukast Sodium 10 mg HS PO 01/29/25 22:00 02/10/25 21:41 10 MG Magnesium Oxide 400 mg DAILY PO 01/31/25 10:00 02/10/25 08:57 400 MG Sodium Chloride 10 ml QSHIFT@10,22 IV 01/31/25 22:00 02/10/25 22:16 10 ML Prochlorperazine Edisylate 10 mg Q4HPRN PRN IV 02/02/25 01:00 02/04/25 13:02 10 MG Diagnostic Test (Pha) 1 strip Q6HR 02/03/25 06:00 02/10/25 17:13 1 STRIP Insulin Human Regular Q6HR SC 02/03/25 06:00 02/10/25 17:13 2 UNITS Dextrose 50 ml UD PRN IV 02/03/25 02:45 Pantoprazole Sodium 40 mg DAILY@0600 PO 02/06/25 06:00 02/10/25 06:29 40 MG Furosemide 40 mg DAILY PO 02/07/25 10:00 02/10/25 08:58 40 MG Apixaban 2.5 mg BID PO 02/06/25 22:00 02/10/25 21:34 2.5 MG Potassium Chloride 10 meq DAILY PO 02/07/25 10:00 02/10/25 08:57 10 MEQ Tramadol HCl 50 mg Q4HP PRN PO 02/07/25 16:15 02/07/25 17:45 50 MG Acetaminophen/ Hydrocodone Bitart 1 tab Q4HP PRN PO 02/07/25 16:15 02/07/25 20:47 1 TAB Duloxetine HCl 30 mg DAILY PO 02/08/25 10:00 02/10/25 08:57 30 MG Melatonin 5 mg HS PO 02/08/25 22:00 02/09/25 22:18 5 MG Amiodarone HCl 200 mg HS PO 02/10/25 22:00 02/10/25 21:30 200 MG Clopidogrel Bisulfate 75 mg DAILY PO 02/11/25 10:00 objective General: NAD, AAOX3 Chest: lung barton clear to auscultation Heart: RRR, no murmur Abdomen: non-distended, no tenderness to palpation, +BS laboratory and microbiology Laboratory Tests 02/08/25 04:30 Test 02/08/25 04:30 Range/Units Serum Glucose 131 H 74-106 mg/dL Problems(with codes): (1) Hiatal hernia (2) Symptomatic anemia (3) Generalized weakness (4) Diverticulosis (5) Colitis (6) UTI (urinary tract infection) (7) Leukocytosis Prognosis Plan Patient is clinically improving and discharge planning is in progress Patient is currently on amiodarone for history of AFib Patient was advised to follow up in my office in 4-6 weeks to discuss elective colonoscopy and possible CT abdomen Patient will need cardiac clearance Dietary Evaluation Review Comments: Continue current POC Expected Outcomes/Goals: To meet >75% estimated needs Fu 3-5 days Plan discussed with: Patient CC Plasma Assessment Blood Product Administration S: [id number] SARAHI BARROS MD Feb 10, 2025 22:46
[2025-02-11] MEDS ORDERED: CLOPIDOGREL BISULFATE 75 MG TAB PO SCH (10:00)
== END 2025-02-10 22:35 | disposition home or self-care (01) | DRG 871 ==
LOC: EDBD 10:42 → ER 10:42 → OVERFLOW 15:21 → TELE-WESTW 21:44
PROVIDERS: ADMIT Student in an Organized Health Care Education/Training Program; ATTEND Student in an Organized Health Care Education/Training Program
PROC: 0DB68ZX Excision of Stomach, Via Natural or Artificial Opening Endoscopic, Diagnostic (ICD-10-PCS; 2025-01-29)
PROC: 0DB98ZX Excision of Duodenum, Via Natural or Artificial Opening Endoscopic, Diagnostic (ICD-10-PCS; principal; 2025-01-29 13:24)
PROC: 02HV33Z Insertion of Infusion Device into Superior Vena Cava, Percutaneous Approach (ICD-10-PCS; 2025-01-31)
PROC: B548ZZA Ultrasonography of Superior Vena Cava, Guidance (ICD-10-PCS; 2025-01-31)
PROC: 30233N1 Transfusion of Nonautologous Red Blood Cells into Peripheral Vein, Percutaneous Approach (ICD-10-PCS; 2025-02-04)
DX: A41.9 Sepsis, unspecified organism (principal); K21.01 Gastro-esophageal reflux disease with esophagitis, with bleeding; K29.71 Gastritis, unspecified, with bleeding; K29.81 Duodenitis with bleeding; I50.32 Chronic diastolic (congestive) heart failure; J44.1 Chronic obstructive pulmonary disease with (acute) exacerbation; J96.10 Chronic respiratory failure, unspecified whether with hypoxia or hypercapnia; N17.9 Acute kidney failure, unspecified; A09 Infectious gastroenteritis and colitis, unspecified; E78.5 Hyperlipidemia, unspecified; J84.10 Pulmonary fibrosis, unspecified; E11.51 Type 2 diabetes mellitus with diabetic peripheral angiopathy without gangrene; I48.0 Paroxysmal atrial fibrillation; I25.10 Atherosclerotic heart disease of native coronary artery without angina pectoris; I27.20 Pulmonary hypertension, unspecified; I11.0 Hypertensive heart disease with heart failure; J43.9 Emphysema, unspecified; D64.9 Anemia, unspecified; K22.70 Barrett's esophagus without dysplasia; K44.9 Diaphragmatic hernia without obstruction or gangrene; E87.6 Hypokalemia; F41.9 Anxiety disorder, unspecified; R07.89 Other chest pain; M79.7 Fibromyalgia; I25.2 Old myocardial infarction; Z99.81 Dependence on supplemental oxygen; Z98.61 Coronary angioplasty status; Z95.1 Presence of aortocoronary bypass graft; Z95.0 Presence of cardiac pacemaker; Z90.710 Acquired absence of both cervix and uterus; Z90.49 Acquired absence of other specified parts of digestive tract; Z88.1 Allergy status to other antibiotic agents; Z88.0 Allergy status to penicillin; Z87.891 Personal history of nicotine dependence; Z81.1 Family history of alcohol abuse and dependence; Z86.73 Personal history of transient ischemic attack (TIA), and cerebral infarction without residual deficits; Z82.49 Family history of ischemic heart disease and other diseases of the circulatory system; Z80.1 Family history of malignant neoplasm of trachea, bronchus and lung; Z79.899 Other long term (current) drug therapy; Z79.02 Long term (current) use of antithrombotics/antiplatelets; Z79.01 Long term (current) use of anticoagulants
CPT/HCPCS: 36415; 36430; 36569; 43239; 71045; 71250; 80048; 80053; 81001; 82270; 82962; 83735; 83880; 84484; 85007; 85025; 85027; 85048; 85610; 85730; 86803; 86850; 86900; 86901; 86920; 87045; 87081; 87340; 87427; 87493; 93005; 94640; 96374; 96375; 99291; G0378; J1815; J1885; J2003; J2405; J2470; J2704; J3470; J3490

== ENCOUNTER 2025-03-24 09:30 | Outpatient (CLI) | payer MEDICARE, MEDICAID ==
[~2025-03-24 09:30] MED LIST changes: +AMIO200T33 PO; +PANT40TA2 PO; +SUCR1SUS26 PO; -TICA90TA PO
[2025-03-24 09:52] LABS: Hematocrit 29.1 % (36.0-46.0); Hemoglobin 9.7 g/dL (12.2-16.2); Mean Corpuscular Hemoglobin 31.5 pg (28.0-32.0); Mean Corpuscular Volume 94.4 fL (80.0-100.0); Nucleated Red Blood Cells % 0.0 %
[2025-03-24 10:23] LABS: Alanine Aminotransferase 13 U/L (7-40); Albumin 4.1 g/dL (3.2-4.8); Alkaline Phosphatase 79 U/L (46-116); Anion Gap 10 (5-15); BUN/Creatinine Ratio 11.5 (10.0-20.0); Calcium 8.9 mg/dL (8.7-10.4); Carbon Dioxide 27 mmol/L (20-31); Chloride 106 mmol/L (98-107); Glucose 92 mg/dL (74-106); Potassium 4.1 mmol/L (3.5-5.1); Sodium 143 mmol/L (136-145); Total Protein 5.9 g/dL (5.7-8.2); Triglycerides 99 mg/dL (< 150)
[2025-03-24 10:24] LABS: Cholesterol 105 mg/dL (< 200); HDL Cholesterol 53 mg/dL (40-59)
[2025-03-24 10:25] LABS: Bilirubin, Direct < 0.1 mg/dL (<0.3); Bilirubin, Total 0.3 mg/dL (0.2-1.0); Blood Urea Nitrogen 7 mg/dL (9-23)
== END 2025-03-24 17:00 | disposition home or self-care (01) ==
LOC: LAB 09:30
PROVIDERS: ATTEND Physician Assistant
DX: I11.0 Hypertensive heart disease with heart failure (principal); E11.9 Type 2 diabetes mellitus without complications; E78.5 Hyperlipidemia, unspecified; E03.9 Hypothyroidism, unspecified; D64.9 Anemia, unspecified; R68.89 Other general symptoms and signs; I50.9 Heart failure, unspecified
CPT/HCPCS: 36415; 80053; 80061; 82248; 83036; 84443; 85025

== ENCOUNTER 2025-05-11 16:50 | Inpatient (IN) | payer MEDICARE, MEDICAID ==
[~2025-05-11] VITALS: Ht 160 cm; Wt 69.5 kg
--- NOTE | 2025-05-11 17:01 | ECG ---
[facility] Test Date: 2025-05-11 Test Time: 16:56:02 Pat Name: EUN PAIZ Department: [facility] ED Patient ID: [id number] Room: 0279T Gender: F Mails Supervisor: MR FOOTEB: 1950 Requested By: VEGA GRIFFIN Order Number: [id number] Reading MD: Bobby Ramey Measurements Intervals [place] Rate: 79 P: 0 CT: 209 QRS: 54 QRSD: 132 T: -77 QT: 425 QTc: 488 Interpretive Statements Atrial-paced rhythm Left bundle branch block Electronically Signed On 05-17-2025 20:21:19 PDT by Bobby Ramey Please click the below link to view image of tracing.
--- NOTE | 2025-05-11 17:16 | ED.PDOC ---
HPI Comments 75 y/o F, BIBA, with PMHx of asthma, anemia, HLD, CVA, HTN, CAD, CHF, and COPD presents to the ED for CC of chest pain. EMS reports, patient is coming from home where she c/o bilateral chest pain that radiates to her substernal area x3days. Patient relays, to have further associated symptoms of shortness of breath and vomiting, having had [id number] of emesis [employer]. Per EMS, caregiver on scene endorses increasing patient's oxygen from 2L-4L with improvement of symptoms. Patient denies palpitations, headache, dizziness, weakness, or fatigue. Chief Complaint: Chest Pain Time Seen by MD: 17:00 Primary Care Provider: DR. NIELSEN Reviewed Notes: Nurses Notes, Thermostat Machine Tender Notes, Medications, Allergies Allergies: Coded Allergies: Nitrofurantoin (Verified Allergy, Severe, 04/05/22) Amoxicillin (Verified Allergy, Mild, 09/07/23) 09/07/23: TECHNICAL SERVICES LIBRARIANJOHANNA, SPOKE WITH PATIENT. SHE POSSIBLY RECALLS TAKING AMOXICILLIN BEFORE, DENIES ANY RASHES, ITCHINESS, S/SX OF ANAPHYLAXIS. Ciprofloxacin (Verified Allergy, Mild, 09/07/23) 09/07/23: TECHNICAL SERVICES LIBRARIANJOHANNA, SPOKE WITH PATIENT. SHE MENTIONED LAST TIME SHE RECIEVED CIPRO INJECTION WAS A WHILE AGO. PATIENT ENDORSED SMALL BUMPS ON THE SKIN BUT PER PATIENT COULD HAVE BEEN DUE TO FAST INJECTION. HAS TAKEN LEVAQUIN PO BEFORE AND DENIES ANY RASH, ITCHINESS, S/SX OF ANAPHYLAXIS. Doxycycline (Verified Allergy, Unknown, "I get really sick", 09/01/24) Patient verbalizes that she "get really sick" in when receiving doxycycline in the past. When asked about specific symptoms in the past, she verbalizes not remembering. Home Meds Active Scripts Sucralfate (CARAFATE SUSP) 1 Gm/10 Ml Ss, 10 ML PO BID, #600 ML 0 Refills Prov:TAWANA ROGEL MD 02/10/25 Pantoprazole Sodium Sesquihydr (Protonix) 40 Mg Tab, 40 MG PO DAILY, #30 TAB 1 Refill Prov:TAWANA ROGEL MD 02/10/25 Amiodarone Hcl (Amiodarone Hcl) 200 Mg Tab, 1 TAB PO HS, #30 TAB 1 Refill Prov:TAWANA ROGEL MD 02/10/25 Docusate Sodium (Docusate Sodium) 100 Mg Cap, 100 MG PO BIDPRN PRN for 30 Days, #60 CAP 0 Refills Prov:CHERRY HARRINGTON RESIDENT 01/14/25 Clopidogrel Bisulfate (Plavix) 75 Mg Tab, 75 MG PO DAILY for 30 Days, #30 TAB 0 Refills Prov:CHERRY HARRINGTON RESIDENT 01/14/25 Apixaban Base (ELIQUIS) 2.5 Mg Tab, 2.5 MG PO BID for 30 Days, #60 TAB 0 Refills Prov:CHERRY HARRINGTON RESIDENT 01/14/25 Ondansetron Odt 4MG Tab (ZOFRAN PO) 4 Mg Tb, 4 MG PO Q8HR PRN, #14 TAB ODT TAB-DISSOLVE IN MOUTH, THEN SWALLOW Prov:VITO SCHUSTER MD 07/08/23 Reported Medications Ferrous Sulfate (Ferosul) 325 Mg Tab, 1 TAB PO BID for 30 Days, #60 06/12/24 Dicyclomine Hcl (BENTYL CAPSULE) 10 Mg Cp, 1 CAP PO QID PRN for 5 Days, #20 06/12/24 Isosorbide Mononitrate (Isosorbide Mononitrate Er) 60 Mg Tab, 1 TAB PO DAILY for 90 Days, #90 06/12/24 Qnjoakfbxtd-Oykvnjkzssyd-Brspv (Trelegy Ellipta 200-62.5-25 Mcg/INH) 1 Aer Aer, 1 PUFF IN DAILY for 30 Days, #60 06/12/24 Carvedilol (Carvedilol) 25 Mg Tab, 1 TAB PO TID for 30 Days, #90 02/22/24 Tramadol Hcl (Tramadol Hcl) 50 Mg Tab, 50 MG PO BID PRN for PAIN SCALE 1 THRU 6, MG 10/11/23 Qeqsabgxjeq-Yctsxxqdcug-Jso C- (Glucosamine Chondroitin) Tab, 1500 MG PO BID, TAB 10/11/23 Zinc Sulfate (Zinc Sulfate) 220 Mg Cap, 50 MG PO DAILY for 30 Days, MG 10/11/23 Ascorbic Acid (VITAMIN C TABLET) 500 Mg Tb, 2000 MG PO DAILY, #30 TAB 3 Refills 10/11/23 Nitroglycerin (Nitroglycerin Lingual) 0.4 Mg/[place] Spr, 0.4 MG TL BID PRN for FOR CHEST PAIN, SPR 10/11/23 Magnesium Oxide (MAGNESIUM OXIDE) 400 Mg Tab, 1 TAB PO DAILY for 30 Days, #30 10/11/23 Evolocumab (Repatha) 140 Mg/Ml Inj, 1 ML SC Q2WEEK for 56 Days, #14 INJECT 1 ML SUBCUTANEOUSLY EVERY 2 WEEKS. 09/07/23 Potassium Chloride (K-Tabs) 10 Meq Tab, 1 TAB.CHEW PO DAILY 07/01/22 Pantoprazole Sodium Sesquihydr (Pantoprazole Sodium) 40 Mg Tab, 1 TAB PO DAILY for 30 Days, #30 07/01/22 Ranolazine (Ranolazine ER) 500 Mg Tab, 1 TAB PO BID for 30 Days, #60 07/01/22 Furosemide (Furosemide) 40 Mg Tab, 1 TAB PO DAILY for 90 Days, #90 07/01/22 Atorvastatin Calcium (ATORVASTATIN CALCIUM) 40 Mg Tab, 1 TAB PO HS for 30 Days, #30 07/01/22 Montelukast Sodium (MONTELUKAST SODIUM) 10 Mg Tab, 1 TAB PO DAILY for 30 Days, #30 07/01/22 Information Source: Patient, Emergency Med Personnel Mode of Arrival: EMS Severity: Moderate Timing: Days Duration: Since onset Prehospital treatment: None Location: Chest (R), Chest (L), Substernal Quality: Pressure Onset: At Rest Cardiac Risk Factors: Family History, Hyperlipidemia, HTN, Diabetes PE Risk Factors: None History of: MS, DVT/PE Modifying Factors: Nothing Associated Signs and Symptoms: SOB Past Medical History PAST MEDICAL HISTORY: Anemia, Asthma, CAD, CHF, COPD, CVA, DM, GERD, High Lipids, HTN, MS Surgical History: CABG, Cholecystectomy, Hysterectomy, Pacemaker, PTCA, To nsillectomy ENGINE SPECIALIST History: No Pertinent ENGINE SPECIALIST History, Ovarian Cysts Family History Family History: Reviewed,noncontributory to illness, Family hx of DM, Family hx of Cancer, Family hx of heart fran Social History Smoker: Quit Greater Than 1 Year Alcohol: Denies ETOH Use Drugs: Denies Drug Use Lives In: Home Constitutional: denies: chills, diaphoresis, fatigue, fever, malaise, sweats, weakness, others EENTM: denies: blurred vision, double vision, ear bleeding, ear discharge, ear drainage, ear pain, ear ringing, eye pain, eye redness, hearing loss, mouth pain, mouth swelling, nasal discharge, nose bleeding, nose congestion, nose pain, photophobia, tearing, throat pain, throat swelling, voice changes, others Respiratory: reports: shortness of breath; denies: cough, hemoptysis, orthopnea, SOB at rest, SOB with excertion, stridor, wheezing, others Cardiovascular: reports: chest pain; denies: dizzy spells, diaphoresis, Dyspnea on exertion, edema, irregular heart beat, left arm pain, lightheadedness, palpitations, PND, syncope, others Gastrointestinal: denies: abdomen distended, abdominal pain, blood streaked bowels, constipated, diarrhea, dysphagia, difficulty swallowing, hematemesis, melena, nausea, poor appetite, poor fluid intake, rectal bleeding, rectal pain, vomiting, others Genitourinary: denies: abnormal vagina bleeding, burning, dyspareunia, dysuria, flank pain, frequency, hematuria, incontinence, pain, , vagina discharge, urgency, others Neurological: denies: dizziness, fainting, headache, left sided numbness, left sided weakness, numbness, paresthesia, pre-existing deficit, right sided numbness, right sided weakness, seizure, speech problems, tingling, tremors, weakness, others Musculoskeletal: denies: back pain, gout, joint pain, joint swelling, muscle pain, muscle stiffness, neck pain, others Integumetry: denies: bruises, change in color, change in hair/nails, dryness, laceration, lesions, lumps, rash, wounds, others Allergic/Immunocompromised: denies: Difficulty Healing, Frequent Infections, Hives, Itching, others Hematologic/Lymphatic: denies: anemia, blood clots, easy bleeding, easy bruising, swollen glands, others Endocrine: denies: excessive hunger, excessive sweating, excessive thirst, excessive urination, flushing, intolerance to cold, intolerance to heat, unexplained weight gain, unexplained weight loss, others Psychiatric: denies: anxiety, bipolar disorder, depression, hopeless, panic disorder, schizophrenia, sleepless, suicidal, others All Other Systems: Reviewed and Negative Physical Exam General Appearance: Moderate Distress HEENT: Normal ENT Inspection, Pharynx Normal, TMs Normal Neck: Full Range of Motion, Non-Tender, Normal, Normal Inspection Respiratory: Chest Non-Tender, Lungs Clear, No Accessory Muscle Use, No Respiratory Distress, Normal Breath Sounds Cardiovascular: No Edema, No JVD, No Murmur, No Gallop, Normal Peripheral Pulses, Regular Rate/Rhythm, Other (Pacemaker to the left chest) Breast Exam: Deferred Gastrointestinal: No Organomegaly, Non Tender, No Pulsatile Mass, Normal Bowel Sounds, Soft Genitalia: Deferred Pelvic: Deferred Rectal: Deferred Extremities: No calf tenderness, Normal capillary refill, No pedal edema Musculoskeletal : Apperance: Normal Neurologic: Alert, mobile solutions architect II-XII nml as Tested, Motor Weakness, Normal Affect, Normal Mood, No Sensory Deficits Cerebellar Function: Normal Reflexes: Normal Skin: Dry, Normal Color, Warm Lymphatic: No Adenopathy EKG EKG : Pulse Rate (adult): 78 [place]: Normal Cardiac Rhythm: Paced Block: None Hypertrophy: None ST: Normal Was a procedure done? Was a procedure done?: No CP Differential Dx Differential Diagnosis: Angina, Anxiety / Panic Attack Differential Diagnosis: Chest Wall Pain, Costochondritis, Esophageal reflux/spasm, Gastritis, Pneumonia X-Ray, Labs, Meds, VS Vital Signs Date Time Temp Pulse Resp B/P (MAP) Pulse Ox O2 Delivery O2 Flow Rate FiO2 05/11/25 17:16 78 05/11/25 16:59 97.7 85 16 134/75 100 97.7 05/11/25 16:56 79 Lab Test 05/11/25 17:15 Range/Units White Blood Count 6.3 4.4-10.8 10^3/uL Red Blood Count 3.43 L 4.0-5.20 10^6/uL Hemoglobin 10.8 L 12.2-16.2 g/dL Hematocrit 33.9 L 36.0-46.0 % Mean Corpuscular Volume 98.9 80.0-100.0 fL Mean Corpuscular Hemoglobin 31.5 28.0-32.0 pg Mean Corpuscular Hemoglobin Concent 31.9 L 32.0-36.0 g/dL Red Cell Distribution Width 14.8 H 11.8-14.3 % Platelet Count 235 140-450 10^3/uL Mean Platelet Volume 7.5 6.9-10.8 fL Neutrophils (%) (Auto) 75.0 37.0-80.0 % Lymphocytes (%) (Auto) 11.2 10.0-50.0 % Monocytes (%) (Auto) 8.8 0.0-12.0 % Eosinophils (%) (Auto) 4.6 0.0-7.0 % Basophils (%) (Auto) 0.4 0.0-2.0 % Neutrophils # (Auto) 4.7 1.6-8.6 10 ^3/uL Lymphocytes # (Auto) 0.7 0.4-5.4 10 ^3/uL Monocytes # (Auto) 0.6 0-1.3 10 ^3/uL Eosinophils # (Auto) 0.3 0-0.8 10 ^3/uL Basophils # (Auto) 0 0-0.2 10 ^3/uL Nucleated Red Blood Cells 0.1 % Sodium Level 142 136-145 mmol/L Potassium Level 4.5 3.5-5.1 mmol/L Chloride Level 106 98-107 mmol/L Carbon Dioxide Level 25 20-31 mmol/L Anion Gap 11 5-15 Blood Urea Nitrogen 11 9-23 mg/dL Creatinine 0.74 0.550-1.02 mg/dL Glomerular Filtration Rate Calc 84 >90 mL/min BUN/Creatinine Ratio 14.9 10.0-20.0 Serum Glucose 107 H 74-106 mg/dL Calcium Level 8.3 L 8.7-10.4 mg/dL Troponin I High Sensitivity 3 L </=34 ng/L IV Hep-Lock was established The patient's CBC and chemistry panel are within normal limits The patient's troponin level is within normal limits The chest x-ray shows a pacemaker and no sign of any infiltrates At this time, the patient is being admitted to the hospitalist We are contacting Dr. Nielsen for possible admission versus consultation The patient is admitted Images Reviewed?: Images reviewed and evaluated by me Time of 1ST Reevaluation: 17:30 Reevaluation 1ST: Unchanged Patient Education/Counseling: Diagnosis, Treatment, Prognosis Family Education/Counseling: No Family Present SEPSIS Sepsis Screen Date sepsis recognized/suspect: May 11, 2025 Time Sepsis recognized/suspect: 1649 Recent Procedure: No On Antibiotic Therapy: No Respiratory Rate >20: No Heart Rate >90: No Temp<36 C (96.8 F) or >38.3 C: No SBP <90 or MAP <65 mmHG: No New Acute Mental Status Change: No Is the patient on CPAP, BIPAP,: No Physician Orders Electrocardigram (05/11/25 18:00) Electrocardigram (05/11/25 20:00) Chest Portable (05/11/25 17:05) Heplock Iv (05/11/25 17:05) Front End Specialist (05/11/25 17:05) Blood Pressure (05/11/25 17:05) Oxygen (05/11/25 17:05) Pulse Oximetry (05/11/25 17:05) Troponin-I Hs (05/11/25 18:05) Troponin-I Hs (05/11/25 20:05) Vital Signs Date Time Temp Pulse Resp B/P (MAP) Pulse Ox O2 Delivery O2 Flow Rate FiO2 05/11/25 17:16 78 05/11/25 16:59 97.7 85 16 134/75 100 97.7 05/11/25 16:56 79 Laboratory Tests Test 05/11/25 17:15 White Blood Count 6.3 10^3/uL (4.4-10.8) Departure 1 Departure Time of Disposition: 17:47 Impression: Primary Impression: Acute myocardial ischemia Disposition: 09 ADMITTED INPATIENT Admit to: Tele Condition: Fair Critical Care Note Critical Care Time?: Yes (45 min-critical care time only) Stability Stability form required: Yes Unstable for transfer: Telemetry monitoring (Telemetry monitoring required), ED Physician Assesment (Clinical assesment) Heart Score Heart Score: Heart Score Response (Comments) Value History Highly Suspicious 2 EKG Normal 0 Age >65 2 Risk Factors 1 or 2 risk factors 1 Troponin Normal limit 0 Total 5 I personally scribed for VEGA GRIFFIN MD ([email or web address]) on 05/11/25 at 17:16. E lectronically submitted by Snow Kumar ([email or web address]). VEGA GRIFFIN MD May 11, 2025 17:16
[2025-05-11 17:31] LABS: Chloride 106 mmol/L (98-107); Hematocrit 33.9 % (36.0-46.0); Hemoglobin 10.8 g/dL (12.2-16.2); Mean Corpuscular Hemoglobin 31.5 pg (28.0-32.0); Mean Corpuscular Volume 98.9 fL (80.0-100.0); Nucleated Red Blood Cells % 0.1 %; Potassium 4.5 mmol/L (3.5-5.1); Sodium 142 mmol/L (136-145)
[2025-05-11 17:33] LABS: Anion Gap 11 (5-15); Carbon Dioxide 25 mmol/L (20-31)
[2025-05-11 17:35] LABS: Calcium 8.3 mg/dL (8.7-10.4)
[2025-05-11 17:38] LABS: BUN/Creatinine Ratio 14.9 (10.0-20.0); Blood Urea Nitrogen 11 mg/dL (9-23)
[2025-05-11 17:39] LABS: Glucose 107 mg/dL (74-106)
[2025-05-11 17:40] VITALS: PULSE 77; RESP 18; O2SAT 100
--- NOTE | 2025-05-11 17:51 | DVH ---
CHEST RADIOGRAPH Indication: cp Technique: Single frontal view of the chest was obtained Comparison: XY CHEST PORTABLE on DOS: 02/07/25, XY CHEST PORTABLE on DOS: 02/04/25, XY CHEST PORTABLE on DOS: 01/31/25 FINDINGS: Lines and Tubes: None Lungs: Diffuse interstitial prominence. Lower lung zone opacification with obscuration of the left he midiaphragm indistinctness of the right hemidiaphragm. No pneumothorax. Cardiomediastinal contours: Mild cardiomegaly with mild Atherosclerotic calcification and uncoiling o f the aorta. Midline sternotomy wires with surgical clips are noted consistent with prior history of CABG. Biventricular lead pacemaker with the leads terminating within right atrium and right ventricl e. Possible abandoned pacemaker lead. Bones: No acute osseous abnormality. IMPRESSION: Diffuse interstitial prominence which may be from fibrotic changes with superimposed pulmonary edema/ atypical pneumonia. Obscuration of the left hemidiaphragm with indistinctness of the right hemidiaphragm which may be fro m pleural effusion with associated atelectasis.
[2025-05-11 19:05] VITALS: O2SAT 99
--- NOTE | 2025-05-11 20:17 | ECG ---
[facility] Test Date: 2025-05-11 Test Time: 20:16:12 Pat Name: EUN PAIZ Department: [facility] ED Patient ID: [id number] Room: 0279T Gender: F Soda Clerk: corinne : 1950 Requested By: VEGA GRIFFIN Order Number: [id number] Reading MD: Bobby Ramey Measurements Intervals Success Rate: 70 P: 0 NH: 188 QRS: 6 QRSD: 100 T: 53 QT: 433 QTc: 468 Interpretive Statements Atrial-paced rhythm Electronically Signed On 05-17-2025 20:22:53 PDT by Bobby Ramey Please click the below link to view image of tracing.
[2025-05-11] MEDS: CLOPIDOGREL BISULFATE 75 MG TAB PO ONE (20:32)
[2025-05-11] MEDS: ENOXAPARIN SOD 80 MG/0.8ML SYRINGE SC ONE (20:32)
--- NOTE | 2025-05-11 21:06 | DVHHPRES ---
History of Present Illness Resident Creating Document: VIBHA FORD History of Present Illness Maria Del Rosario Slaughter is a 75-year-old female patient who presents to ED with chief complaint of intermittent stabbing chest pain which is left and right-sided, started on Monday in Functional Class IV presented with intensity 7/10, associated with nausea and vomiting with 12 episodes of food containing emesis. Patient also describes increased dyspnea in Functional Class IV, requiring increasing her oxygen requirement from 3 L/min to 4 L/min. Patient describes similar symptoms as when she presented her [place] (previously documented angina). Patient reports that they are planning to insert Watchman device so she can stop anticoagulation. Her last stent was placed approximately three years ago, she does have a coronary angiography in 01/2025 which showed chronic total obstruction, her corrosion control fitter (Dr. Martinez) indicated optimal medical therapy since lesions are not passable for revascularization. Denies any other associated symptoms including palpitation and syncope. Past medical history: Hypertension, dyslipidemia, coronary artery disease status post CABG in three opportunities on multiple PCI (last stent placed in three years ago), HFpEF and pulmonary hypertension (LVEF 60-65% on echo of 01/2025, also shows pseudo normal left ventricular diastolic dysfunction, [id number] AR, mild MR, moderate TR and RVSP 67 mmHg), asthma/COPD/pulmonary fibrosis with 3 L/min of oxygen requirement, GERD, multiple CVA (approximately four), paroxysmal atrial fibrillation/atrial flutter (chads Vasc 8) currently on apixaban 2.5 mg p.o. b.i.d., non affiliated arrhythmia status post permanent pacemaker placement, hiatal hernia, fibromyalgia, PID, benign breast cyst status postop Surgical history: CABG x3, PCI and multiple occasions, less stent placed three years ago unless coronary angiography completed on 01/2025 (pattern left stent to circumflex which is dominant, LAD with BLOW UP OPERATOR, presence of to ramus intermedius, one ramus intermedius has mild disease in the 2nd has mild disease which had SVG, to other SVGs had CT O's at [facility]), cholecystectomy, tonsillectomy, cataract surgery, cyst breast removal, permanent pacemaker placement Family history: Father and uncle had heart disease, mother had mesothelioma Social history: Lives in [place] with caregiver (next of kin her caregiver). Ex tobacco abuse (40 pack-year history of smoking quit 2003, ex ethanol abuse quit in 2014. Denies current tobacco, alcohol and other drug abuse Allergies: Amoxicillin ciprofloxacin, doxycycline, nitrofurantoin Home medication: Amiodarone, apixaban, atorvastatin, carvedilol, clopidogrel, Bentyl, docusate, iron, Trelegy, furosemide, magnesium, glucosamine, montelukast, nitroglycerin, ranolazine, sucralfate, pantoprazole Patient seen and examined at bedside. Currently has no new complaints. We will admit for further management. Past Medical History Per HPI Past Surgical History Per HPI Family History Per HPI Past Social History Per HPI Review of Systems Review of Systems Per HPI Allergies: Coded Allergies: Nitrofurantoin (Verified Allergy, Severe, 04/05/22) Amoxicillin (Verified Allergy, Mild, 09/07/23) 09/07/23: BLASTING WORKERJOHANNA, SPOKE WITH PATIENT. SHE POSSIBLY RECALLS TAKING AMOXICILLIN BEFORE, DENIES ANY RASHES, ITCHINESS, S/SX OF ANAPHYLAXIS. Ciprofloxacin (Verified Allergy, Mild, 09/07/23) 09/07/23: BLASTING WORKERJOHANNA, SPOKE WITH PATIENT. SHE MENTIONED LAST TIME SHE RECIEVED CIPRO INJECTION WAS A WHILE AGO. PATIENT ENDORSED SMALL BUMPS ON THE SKIN BUT PER PATIENT COULD HAVE BEEN DUE TO FAST INJECTION. HAS TAKEN LEVAQUIN PO BEFORE AND DENIES ANY RASH, ITCHINESS, S/SX OF ANAPHYLAXIS. Doxycycline (Verified Allergy, Unknown, "I get really sick", 09/01/24) Patient verbalizes that she "get really sick" in when receiving doxycycline in the past. When asked about specific symptoms in the past, she verbalizes not remembering. Exam Vital Signs Vital Signs Date Time Temp Pulse Resp B/P (MAP) Pulse Ox O2 Delivery O2 Flow Rate FiO2 05/11/25 20:16 70 05/11/25 19:05 97.8 22 168/68 (101) 99 97.8 05/11/25 19:05 Nasal Cannula* 3 32 Exam Patient lying in bed, in no acute distress General: Lucid, afebrile, mucosae are moist Cardiovascular: Normal S1 and S2. Lower border parasternal systolic murmur intensity 3/6 best heard in tricuspid foci. No gallops or rubs Respiratory: Normal ventilation mechanics. Clear lung sounds on auscultation Abdomen: Soft, nontender, no organomegaly, normal bowel sounds MSK/skin: Mobilizes 4 limbs. Skin is dry and warm Neurological: Oriented in 3 spheres. No motor no sensitive deficits. Pupils are isocoric and reactive Labs/Xrays Labs Test 05/11/25 18:16 05/11/25 17:15 Range/Units Troponin I High Sensitivity 4 </=34 ng/L White Blood Count 6.3 4.4-10.8 10^3/uL Red Blood Count 3.43 L 4.0-5.20 10^6/uL Hemoglobin 10.8 L 12.2-16.2 g/dL Hematocrit 33.9 L 36.0-46.0 % Mean Corpuscular Volume 98.9 80.0-100.0 fL Mean Corpuscular Hemoglobin 31.5 28.0-32.0 pg Mean Corpuscular Hemoglobin Concent 31.9 L 32.0-36.0 g/dL Red Cell Distribution Width 14.8 H 11.8-14.3 % Platelet Count 235 140-450 10^3/uL Mean Platelet Volume 7.5 6.9-10.8 fL Neutrophils (%) (Auto) 75.0 37.0-80.0 % Lymphocytes (%) (Auto) 11.2 10.0-50.0 % Monocytes (%) (Auto) 8.8 0.0-12.0 % Eosinophils (%) (Auto) 4.6 0.0-7.0 % Basophils (%) (Auto) 0.4 0.0-2.0 % Neutrophils # (Auto) 4.7 1.6-8.6 10 ^3/uL Lymphocytes # (Auto) 0.7 0.4-5.4 10 ^3/uL Monocytes # (Auto) 0.6 0-1.3 10 ^3/uL Eosinophils # (Auto) 0.3 0-0.8 10 ^3/uL Basophils # (Auto) 0 0-0.2 10 ^3/uL Nucleated Red Blood Cells 0.1 % Sodium Level 142 136-145 mmol/L Potassium Level 4.5 3.5-5.1 mmol/L Chloride Level 106 98-107 mmol/L Carbon Dioxide Level 25 20-31 mmol/L Anion Gap 11 5-15 Blood Urea Nitrogen 11 9-23 mg/dL Creatinine 0.74 0.550-1.02 mg/dL Glomerular Filtration Rate Calc 84 >90 mL/min BUN/Creatinine Ratio 14.9 10.0-20.0 Serum Glucose 107 H 74-106 mg/dL Calcium Level 8.3 L 8.7-10.4 mg/dL SEPSIS Sepsis Screen Date sepsis recognized/suspect: May 11, 2025 Time Sepsis recognized/suspect: 1904 Recent Procedure: No On Antibiotic Therapy: No Respiratory Rate >20: No Heart Rate >90: No Temp<36 C (96.8 F) or >38.3 C: No SBP <90 or MAP <65 mmHG: No New Acute Mental Status Change: No Is the patient on CPAP, BIPAP,: No Physician Orders Electrocardigram (05/11/25 20:00) Chest Portable (05/11/25 17:05) Heplock Iv (05/11/25 17:05) Surgeon Assistant (05/11/25 17:05) Blood Pressure (05/11/25 17:05) Oxygen (05/11/25 17:05) Pulse Oximetry (05/11/25 17:05) Admit (05/11/25 21:02) Code Status (05/11/25 21:02) Acetaminophen Tablet (Tylenol Tablet) (05/11/25 21:15) Complete Blood Count (05/12/25 04:00) Comprehensive Metabolic Panel (05/12/25 04:00) Npo (Nothing By Mouth) Diet (05/12/25 Breakfast) Echo 2d Mode Cardiac Dop (05/11/25 21:02) Morphine Sulfate Injection (05/11/25 21:15) Lovenox 40mg (05/12/25 10:00) Morphine Sulfate Injection (05/11/25 21:15) Oxygen By Nasal Cannula (05/11/25 21:02) Stat Ekg For Chest Pain (05/11/25 21:02) Notify Md Of Changes From Base (05/11/25 21:02) Kitchen And Counter Worker For 24 Hours (05/11/25 21:02) Emergency Dysrhythmia Protocol (05/11/25 21:02) Rhythm Strips Once Every Shift (05/11/25 21:02) Nitroglycerin Sublingual (Ntrostat Subli (05/11/25 21:15) Vital Signs Date Time Temp Pulse Resp B/P (MAP) Pulse Ox O2 Delivery O2 Flow Rate FiO2 05/11/25 20:16 70 05/11/25 19:05 97.8 78 22 168/68 (101) 99 97.8 05/11/25 19:05 99 Nasal Cannula* 3 32 05/11/25 19:04 72 05/11/25 17:40 98.6 77 18 187/86 (119) 100 98.6 05/11/25 17:40 77 18 100 Nasal Cannula* 3 32 05/11/25 17:16 78 05/11/25 16:59 97.7 85 16 134/75 100 97.7 05/11/25 16:56 79 Laboratory Tests Test 05/11/25 17:15 White Blood Count 6.3 10^3/uL (4.4-10.8) Medications Medications Dose Ordered Sig/Romaine Route Start Time Stop Time Status Last Admin Dose Admin Aspirin 162 mg ONCE ONCE PO 05/11/25 17:15 05/11/25 17:16 DC 05/11/25 17:40 162 MG Clopidogrel Bisulfate 300 mg ONCE ONCE PO 05/11/25 19:00 05/11/25 19:29 DC 05/11/25 20:32 300 MG Enoxaparin Sodium 80 mg ONCE ONCE SC 05/11/25 19:30 05/11/25 19:31 DC 05/11/25 20:32 80 MG Assessment/Plan Assessment/Plan ASSESSMENT Unstable angina Coronary artery disease status post CABG x3 and multiple PCI Acute on chronic diastolic congestive heart failure (HFpEF LVEF of 60-65%) Pulmonary hypertension probable class two (RVSP 67 mmHg) Moderate tricuspid regurgitation Non affiliated arrhythmia status post permanent pacemaker placement Asthma/COPD/pulmonary fibrosis no exacerbation Paroxysmal atrial fibrillation (chads Vasc 8) secondary hypercoagulability state Fibromyalgia Hiatal hernia GERD Hypertension Dyslipidemia History of CVA PLAN Admit patient to telemetry. Completed EKG which showed atrial paced rhythm, no ST alteration. Troponin negative x2. Chest pain is previously documented angina. Currently on IV diuretics with 40 mg IV b.i.d. Patient is currently on enoxaparin therapeutic dose, clopidogrel and atorvastatin. Consulted cardiology for further management (per previous coronary angiography patient lesions are not passable of revascularization, was on optimal medical therapy) Continue home medication accept apixaban, currently on therapeutic Lovenox. Patient is on amiodarone, she does have history of pulmonary fibrosis. Evaluate worsening pulmonary fibrosis or discontinuing amiodarone. Goals of care discussed with patient for over 18 minutes: Full code status Discussed plan with Dr. Flowers, patient and nurses: Patient admitted to telemetry with probable diagnosis of unstable angina. Consulted Cardiology. Patient has extensive history of coronary artery disease with multiple revascularization interventions, last coronary angiography showed lesions that are not passable for revascularization and was indicated to continue with optimal medical therapy. Patient has poor prognosis. Plan discussed with: Patient, Other (Nurses) My Orders Orders - VIBHA FORD Procedure Category Date Status Time Admit ADMIT 05/11/25 Transmitted 21:02 Code Status CODE 05/11/25 Transmitted 21:02 Acetaminophen Tablet PHA 05/11/25 Transmitted (Tylenol Tablet) 21:15 Complete Blood Count LAB 05/12/25 Verified 04:00 Comprehensive LAB 05/12/25 Verified Metabolic Panel 04:00 Npo (Nothing By DIET 05/12/25 Transmitted Mouth) Diet Breakfast Echo 2d Mode Cardiac US 05/11/25 Transmitted DOP 21:02 Morphine Sulfate PHA 05/11/25 Transmitted Injection 21:15 Lovenox 40mg PHA 05/12/25 Transmitted 10:00 Morphine Sulfate PHA 05/11/25 Transmitted Injection 21:15 Oxygen By Nasal RT 05/11/25 Transmitted Cannula 21:02 Stat Ekg For Chest LESLIE 05/11/25 Transmitted Pain 21:02 Notify Of Changes LESLIE 05/11/25 Transmitted From Base 21:02 Kitchen And Counter Worker For LESLIE 05/11/25 Transmitted 24 Hours 21:02 Emergency Dysrhythmia LESLIE 05/11/25 Transmitted Protocol 21:02 Rhythm Strips Once LESLIE 05/11/25 Transmitted Every Shift 21:02 Nitroglycerin PHA 05/11/25 Transmitted Sublingual (Ntrostat 21:15 Date of Service: May 11, 2025 Billing Provider: VALENTINO FLOWERS MD Common Visit Codes: [id number] INP/OBS CARE (HIGH) Secondary Visit Codes: [id number] CARE PLAN 30 MINUTES VIBHA FORD RESIDENT May 11, 2025 21:06
[2025-05-11] MEDS ORDERED: NITROGLYCERIN 0.4 MG SL TAB SL PRN (21:15)
[2025-05-11] MEDS ORDERED: ACETAMINOPHEN 325 MG TAB PO PRN (21:15)
[2025-05-11] MEDS ORDERED: MORPHINE SULFATE INJ 2 MG/ml SYRG IV PRN ×2 (21:15)
[2025-05-11] MEDS ORDERED: DOCUSATE SOD 100 MG CAP PO PRN (22:15)
[2025-05-11] MEDS ORDERED: EVOLOCUMAB 140 MG/ML SC SCH (22:15)
[2025-05-11] MEDS: ENOXAPARIN SOD 100 MG/1 ML SYRINGE SC ONE (22:36)
[2025-05-12] VITALS (9 sets, daily range): BP systolic 102–151; BP diastolic 52–63; PULSE 61–84; RESP 16–20; TEMP 97.5–98.3; O2SAT 97–100
[2025-05-12] MEDS: DICYCLOMINE HCL 10 MG CAP PO SCH (00:25)
[2025-05-12] MEDS: FUROSEMIDE 40 MG/4 ML VIAL IV SCH (05:56)
[2025-05-12 06:32] LABS: Hematocrit 30.7 % (36.0-46.0); Hemoglobin 10.2 g/dL (12.2-16.2); Mean Corpuscular Hemoglobin 31.7 pg (28.0-32.0); Mean Corpuscular Volume 95.7 fL (80.0-100.0); Nucleated Red Blood Cells % 0.1 %
[2025-05-12 06:48] LABS: Alanine Aminotransferase 21 U/L (7-40); Albumin 3.7 g/dL (3.2-4.8); Alkaline Phosphatase 79 U/L (46-116); Anion Gap 10 (5-15); BUN/Creatinine Ratio 16.7 (10.0-20.0); Blood Urea Nitrogen 10 mg/dL (9-23); Calcium 8.6 mg/dL (8.7-10.4); Carbon Dioxide 28 mmol/L (20-31); Chloride 105 mmol/L (98-107); Cholesterol 101 mg/dL (< 200); Glucose 78 mg/dL (74-106); Magnesium 2.0 mg/dL (1.6-2.6); Potassium 4.8 mmol/L (3.5-5.1); Sodium 143 mmol/L (136-145); Total Protein 5.9 g/dL (5.7-8.2); Triglycerides 144 mg/dL (< 150)
[2025-05-12 06:49] LABS: HDL Cholesterol 59 mg/dL (40-59)
[2025-05-12 06:52] LABS: Bilirubin, Direct < 0.1 mg/dL (<0.3); Bilirubin, Total 0.2 mg/dL (0.2-1.0)
[2025-05-12] MEDS ORDERED: FUROSEMIDE 40 MG TAB PO SCH (10:00)
[2025-05-12] MEDS ORDERED: UMECLIDINIUM IN SCH (10:00)
[2025-05-12] MEDS ORDERED: ENOXAPARIN SOD 40 MG/0.4 ML SYRINGE SC SCH (10:00)
[2025-05-12] MEDS ORDERED: VILANTEROL IN SCH (10:00)
[2025-05-12] MEDS ORDERED: [UNRECOGNIZED DRUG - OTHER] IN SCH (10:00)
[2025-05-12] MEDS ORDERED: GLUCOSAMINE CHONDROITIN VIT C PO SCH (10:00)
[2025-05-12] MEDS ORDERED: CLOPIDOGREL BISULFATE 75 MG TAB PO SCH ×2 (10:00→20:00)
--- NOTE | 2025-05-12 10:01 | ECG ---
[facility] Test Date: 2025-05-11 Test Time: 19:04:04 Pat Name: EUN PAIZ Department: ED Room: 0279T Gender: F Health Administrator: : 1950 Requested By: VEGA GRIFFIN Order Number: [id number] Reading MD: Bobby Ramey Measurements Intervals Caret Rate: 72 P: 0 IN: 173 QRS: 7 QRSD: 100 T: 62 QT: 415 QTc: 455 Interpretive Statements Atrial-paced rhythm Electronically Signed On 05-17-2025 20:21:41 PDT by Bobby Ramey Please click the below link to view image of tracing.
[2025-05-12] MEDS: AMIODARONE HCL 200 MG TAB PO ONE (10:07)
--- NOTE | 2025-05-12 10:49 | DVHINCON2 ---
Date of service: May 12, 2025 History of Present Illness HPI 75-year-old female presented with few days of repeated nausea and vomiting. She mentions that after many episodes of nausea and vomiting she started to feel bilateral anterior chest tenderness. Cardiology is involved for cardiac aspects of care. Patient is known to our practice from outside and before. Does have baseline history of coronary artery disease and is status post PCI/CABG. Ment ions that she has been taking her outside medications (including Eliquis/Plavix). Patient had right and left heart catheterization and BRAD in January 2025. Since admission, serial troponin has been negative. Home Meds Active Scripts Sucralfate (CARAFATE SUSP) 1 Gm/10 Ml Ss, 10 ML PO BID, #600 ML 0 Refills Prov:TAWANA ROGEL MD 02/10/25 Pantoprazole Sodium Sesquihydr (Protonix) 40 Mg Tab, 40 MG PO DAILY, #30 TAB 1 Refill Prov:TAWANA ROGEL MD 02/10/25 Amiodarone Hcl (Amiodarone Hcl) 200 Mg Tab, 1 TAB PO HS, #30 TAB 1 Refill Prov:TAWANA ROGEL MD 02/10/25 Docusate Sodium (Docusate Sodium) 100 Mg Cap, 100 MG PO BIDPRN PRN for 30 Days, #60 CAP 0 Refills Prov:CHERRY HARRINGTON 01/14/25 Clopidogrel Bisulfate (Plavix) 75 Mg Tab, 75 MG PO DAILY for 30 Days, #30 TAB 0 Refills Prov:CHERRY HARRINGTON 01/14/25 Apixaban Base (ELIQUIS) 2.5 Mg Tab, 2.5 MG PO BID for 30 Days, #60 TAB 0 Refills Prov:CHERRY HARRINGTON 01/14/25 Ondansetron Odt 4MG Tab (ZOFRAN PO) 4 Mg Tb, 4 MG PO Q8HR PRN, #14 TAB ODT TAB-DISSOLVE IN MOUTH, THEN SWALLOW Prov:VITO SCHUSTER MD 07/08/23 Reported Medications Ferrous Sulfate (Ferosul) 325 Mg Tab, 1 TAB PO BID for 30 Days, #60 06/12/24 Dicyclomine Hcl (BENTYL CAPSULE) 10 Mg Cp, 1 CAP PO QID PRN for 5 Days, #20 06/12/24 Isosorbide Mononitrate (Isosorbide Mononitrate Er) 60 Mg Tab, 1 TAB PO DAILY for 90 Days, #90 06/12/24 Izsvxlhqgzv-Eqncocwkjqqb-Kzjhw (Trelegy Ellipta 200-62.5-25 Mcg/INH) 1 Aer Aer, 1 PUFF IN DAILY for 30 Days, #60 06/12/24 Carvedilol (Carvedilol) 25 Mg Tab, 1 TAB PO TID for 30 Days, #90 02/22/24 Tramadol Hcl (Tramadol Hcl) 50 Mg Tab, 50 MG PO BID PRN for PAIN SCALE 1 THRU 6, MG 10/11/23 Umqdjntdwaz-Ldyomktudld-Pqv C- (Glucosamine Chondroitin) Tab, 1500 MG PO BID, TAB 10/11/23 Zinc Sulfate (Zinc Sulfate) 220 Mg Cap, 50 MG PO DAILY for 30 Days, MG 10/11/23 Ascorbic Acid (VITAMIN C TABLET) 500 Mg Tb, 2000 MG PO DAILY, #30 TAB 3 Refills 10/11/23 Nitroglycerin (Nitroglycerin Lingual) 0.4 Mg/[place] Spr, 0.4 MG TL BID PRN for FOR CHEST PAIN, SPR 10/11/23 Magnesium Oxide (MAGNESIUM OXIDE) 400 Mg Tab, 1 TAB PO DAILY for 30 Days, #30 10/11/23 Evolocumab (Repatha) 140 Mg/Ml Inj, 1 ML SC Q2WEEK for 56 Days, #14 INJECT 1 ML SUBCUTANEOUSLY EVERY 2 WEEKS. 09/07/23 Potassium Chloride (K-Tabs) 10 Meq Tab, 1 TAB.CHEW PO DAILY 07/01/22 Pantoprazole Sodium Sesquihydr (Pantoprazole Sodium) 40 Mg Tab, 1 TAB PO DAILY for 30 Days, #30 07/01/22 Ranolazine (Ranolazine ER) 500 Mg Tab, 1 TAB PO BID for 30 Days, #60 07/01/22 Furosemide (Furosemide) 40 Mg Tab, 1 TAB PO DAILY for 90 Days, #90 07/01/22 Atorvastatin Calcium (ATORVASTATIN CALCIUM) 40 Mg Tab, 1 TAB PO HS for 30 Days, #30 07/01/22 Montelukast Sodium (MONTELUKAST SODIUM) 10 Mg Tab, 1 TAB PO DAILY for 30 Days, #30 07/01/22 Past Medical History Others Past medical history includes diabetes mellitus, hyperlipidemia, hypertension, diastolic heart failure, peripheral artery disease, GERD, anxiety, anemia, asthma, coronary artery disease, status post CABG and PCI, status post pacemaker implantation (Medtronic), status post old CVA, paroxysmal atrial flutter (on Eliquis), COPD on home oxygen, fibromyalgia, pulmonary hypertension, history of poor functional status, history of GI bleeding, pulmonary fibrosis, hiatal hernia, ex-smoker, status post gold cholecystectomy/hysterectomy. Is known to have closed grafts for CABG. Has had high risk PCI/left main in [facility] (few years back). Does have history of abnormal nuclear stress test and the plan has been to manage her medically. Has been kept on Eliquis and Plavix as outpatient. She is ex-smoker. Left heart catheterization revealed multivessel coronary artery disease. SVG nourishing 1 of the ramus intermedius was diseased but the decision was to manage it medically (ramus intermedius had good flow from patent left main: left main was stented before). Has been offered to go for Watchman device as outpatient. It is of note that the patient have diastolic heart failure and also pulmonary fibrosis. She does have pulmonary hypertension. Components of both type 2 and type 3 pulmonary hypertension can be present. Patient Family History: Alcoholism Cardiovascular disease G8 FATHER FHx: lung cancer Hypertension G8 FATHER Secondary malignant neoplasm of lung G8 MOTHER Smoker: Quit Alocohol: None Lives with: With family Review of Systems Constitutional: No symptom reported Cardiovascular: Chest Pain Gastrointestinal: Nausea, Vomiting All Other Systems Fourteen point review of system was performed. Relevant findings as per above and as per HPI. Otherwise negative. H&P Exam Vital Signs Vital Signs Date Time Temp Pulse Resp B/P (MAP) Pulse Ox O2 Delivery O2 Flow Rate FiO2 05/12/25 09:00 98.1 73 18 136/63 (87) 98 98.1 05/12/25 00:43 Nasal Cannula* 3 32 General Appeara: Well developed Head Exam: Normal inspection Eye Exam: bilateral eye PERRL Nasal Exam: Normal inspection Mouth: Normal Inspection Pulmonary/Respiratory: Lungs clear Cardiovascular/Chest: Normal inspection, Regular rate Peripheral Pulses: 2+ carotid (R), 2+ carotid (L), 2+ femoral (R), 2+ femoral (L), 2+ dorsalis pedis (R), 2+ dorsalis pedis (L) Abdominal Exam: Normal bowel sounds, Soft Neuro/Mental St: Alert, Oriented Appearance: Appropriate appearance Eye contact/ Speech: Cooperative Labs/Xrays Labs Test 05/12/25 05:43 05/11/25 18:16 Range/Units White Blood Count 7.1 4.4-10.8 10^3/uL Red Blood Count 3.21 L 4.0-5.20 10^6/uL Hemoglobin 10.2 L 12.2-16.2 g/dL Hematocrit 30.7 L 36.0-46.0 % Mean Corpuscular Volume 95.7 80.0-100.0 fL Mean Corpuscular Hemoglobin 31.7 28.0-32.0 pg Mean Corpuscular Hemoglobin Concent 33.1 32.0-36.0 g/dL Red Cell Distribution Width 14.1 11.8-14.3 % Platelet Count 207 140-450 10^3/uL Mean Platelet Volume 7.9 6.9-10.8 fL Neutrophils (%) (Auto) 77.4 37.0-80.0 % Lymphocytes (%) (Auto) 10.0 10.0-50.0 % Monocytes (%) (Auto) 7.8 0.0-12.0 % Eosinophils (%) (Auto) 4.1 0.0-7.0 % Basophils (%) (Auto) 0.7 0.0-2.0 % Neutrophils # (Auto) 5.5 1.6-8.6 10 ^3/uL Lymphocytes # (Auto) 0.7 0.4-5.4 10 ^3/uL Monocytes # (Auto) 0.6 0-1.3 10 ^3/uL Eosinophils # (Auto) 0.3 0-0.8 10 ^3/uL Basophils # (Auto) 0 0-0.2 10 ^3/uL Nucleated Red Blood Cells 0.1 % Sodium Level 143 136-145 mmol/L Potassium Level 4.8 3.5-5.1 mmol/L Chloride Level 105 98-107 mmol/L Carbon Dioxide Level 28 20-31 mmol/L Anion Gap 10 5-15 Blood Urea Nitrogen 10 9-23 mg/dL Creatinine 0.60 0.550-1.02 mg/dL Glomerular Filtration Rate Calc 93 >90 mL/min BUN/Creatinine Ratio 16.7 10.0-20.0 Serum Glucose 78 74-106 mg/dL Hemoglobin A1c < 3.8 <5.7 % A1C Calcium Level 8.6 L 8.7-10.4 mg/dL Phosphorus Level 3.4 2.4-5.1 mg/dL Magnesium Level 2.0 1.6-2.6 mg/dL Total Bilirubin 0.2 0.2-1.0 mg/dL Direct Bilirubin < 0.1 <0.3 mg/dL Aspartate Amino Transferase (AST) 51 H 13-40 U/L Alanine Aminotransferase (ALT) 21 7-40 U/L Alkaline Phosphatase 79 46-116 U/L B-Type Natriuretic Peptide 116.39 0-100 pg/mL Total Protein 5.9 5.7-8.2 g/dL Albumin 3.7 3.2-4.8 g/dL Triglycerides Level 144 < 150 mg/dL Cholesterol Level 101 < 200 mg/dL LDL Cholesterol 28 < 100 mg/dL HDL Cholesterol 59 40-59 mg/dL Thyroid Stimulating Hormone (TSH) 2.82 0.55-4.78 uIU/mL Troponin I High Sensitivity 4 </=34 ng/L Assessment/Plan Plan 75-year-old female presented with few days of repeated nausea and vomiting. She mentions that after many episodes of nausea and vomiting she started to feel bilateral anterior chest tenderness. Cardiology is involved for cardiac aspects of care. Patient is known to our practice from outside and before. Does have baseline history of coronary artery disease and is status post PCI/CABG. Mentions that she has been taking her outside medications (including Eliquis/Plavix). Patient had right and left heart catheterization and BRAD in January 2025. Since admission, serial troponin has been negative. It is of note that the patient has had repeated GI bleedings and has had PRBC transfusion for it. Lying comfortably flat in bed. No JVD. pink mucosa. Lungs reveal scattered rhonchi. Cardiac: Regular, no thrills/murmur. Abdomen is soft. No hepatomegaly. Bowel sounds positive. Lower extremities do not reveal edema. Dorsalis pedis is 2+ bilateral Past medical history includes diabetes mellitus, hyperlipidemia, hypertension, diastolic heart failure, peripheral artery disease, GERD, anxiety, anemia, asthma, coronary artery disease, status post CABG and PCI, status post pacemaker implantation (Medtronic), status post old CVA, paroxysmal atrial flutter (on Eliquis), COPD on home oxygen, fibromyalgia, pulmonary hypertension, history of poor functional status, history of GI bleeding, pulmonary fibrosis, hiatal hernia, ex-smoker, status post gold cholecystectomy/hysterectomy. Is known to have closed grafts for CABG. Has had high risk PCI/left main in [facility] (few years back). Does have history of abnormal nuclear stress test and the plan has been to manage her medically. Has been kept on Eliquis and Plavix as outpatient. She is ex-smoker. Left heart catheterization revealed multivessel coronary artery disease. SVG nourishing 1 of the ramus intermedius was diseased but the decision was to manage it medically (ramus intermedius had good flow from patent left main: left main was stented before). Has been offered to go for Watchman device as outpatient. It is of note that the patient have diastolic heart failure and also pulmonary fibrosis. She does have pulmonary hypertension. Components of both type 2 and type 3 pulmonary hypertension can be present. Echocardiogram of January 09, 2023 revealed LVEF of 55 to 60%, mild concentric left ventricular hypertrophy, no wall motion abnormality, mild biatrial enlargement, pacing wire in right-sided chambers, mild to moderate aortic insufficiency, mild mitral regurgitation, mild to moderate tricuspid regurgitation and right ventricular systolic pressure of 35 mmHg Echocardiogram of March 07, 2023 had revealed ejection fraction of 55 to 60%, mild concentric left ventricular hypertrophy, mild AI/MR/PI, mild biatrial enlargement, pacemaker wire in the right-sided chambers and right ventricular systolic pressure of 34 mmHg Echocardiogram of September 06, 2023 revealed ejection fraction of 55% and pacemaker in right-sided chambers Echocardiogram of December 26, 2023 had reported ejection fraction of 55-60%, no wall motion abnormality, [id number] aortic insufficiency, mild MR, moderate TR and right ventricular systolic pressure 42 mm Hg Echocardiogram of August 30, 2024 reported ejection fraction of 55-60%, no wall motion abnormality, mild biatrial enlargement, pacemaker in the right-sided chambers, mild AI/MR and moderate tricuspid regurgitation. Right ventricular systolic pressure was assessed at 41 mm Hg. Echocardiogram of December 20, 2024 (performed in the office) revealed ejection fraction of 60-65%, mild concentric left ventricular hypertrophy, pseudo normal LV filling, mild biatrial enlargement, mild right ventricular enlargement with good systolic function, moderate aortic insufficiency, aortic sclerosis with no stenosis, mild mitral annular calcification, [id number]-[id number] MR/TR and right ventricular systolic pressure of 53 mm Hg. Echocardiogram of January 10, 2025 revealed mild concentric left ventricular hypertrophy, ejection fraction of 60-65%, pseudo normal LV filling, [id number] aortic insufficiency, mild mitral regurgitation, moderate tricuspid regurgitation and right ventricular systolic pressure of 67 mm Hg. BRAD of January 13, 2025 revealed no significant valvular disease Right and left heart catheterization of January 13, 2025 revealed multivessel coron luis artery disease LVEF of around 50%; Apical aneurysm; Increased LVEDP (19 mm Hg); No pulmonary hypertension; Patent left main stent into LCX (dominant vessel) with no significant disease; Proximal LAD was TORCH SOLDERER with minor parallel collaterals. LAD was a diffusely diseased vessel with areas of focal aneurysm; Presence of 2 ramus intermedius; One of the ramus intermedius is with mild disease; Second ramus: Relatively small vessel with mild disease. There was SVG 'also' nourishing it. SVG itself had ostial and middle SVG section disease (decision was made to manage it medically); DANIELLE was atretic but patent; There was 2 other SVG's which were TORCH SOLDERER at ostium and suggestion was for medical therapy Hemoglobin: 10.8 - 10.2 White blood cell: 6.3 - 7.1 Creatinine: 0.74 - 0.60 Potassium: 4.5 - 4.8 Troponin (high sensitive): 3 - 4 BNP: 116.39 TSH: 2.82 Chest x-ray revealed: IMPRESSION: Diffuse interstitial prominence which may be from fibrotic changes with superimposed pulmonary edema/ atypical pneumonia. Obscuration of the left hemidiaphragm with indistinctness of the right hemidiaphragm which may be from pleural effusion with associated atelectasis. EKG revealed A paced with nonspecific ST-T changes. Another EKG revealed bundle branch block. Telemetry reveals sinus rhythm and occasions NSVT Patient is a 75-year-old female who presented with repeated nausea and vomiting which was followed by anterior chest discomfort/tenderness. Chest pain has been pleuritic. Serial high sensitive troponin has been negative. Acute coronary syndrome is not considered. It is of note that the patient had right and left heart catheterization in January 2025 (suggestion was for medical management). Is referred for elective/outpatient Watchman which has not happened before. He is kept on Eliquis/Plavix as outpatient. The dose of Eliquis and has been 2.5 b.i.d. (has had repeated GI bleedings secondary to hiatal hernia). Chest x-ray revealed congestion of the lungs versus pneumonia. It is of note that the patient does have baseline history of diastolic heart failure and component of acute on chronic diastolic heart failure could be present. Chest discomfort, atypical Pleuritic chest pain Nausea and vomiting, repeated Acute on chronic diastolic heart failure Coronary artery disease, status post CABG/PCI Paroxysmal atrial flutter (on Eliquis as outpatient) COPD/Emphysema Pulmonary fibrosis Pulmonary hypertension, history of Chronic diastolic heart failure Status post pacemaker Hypokalemia Paroxysmal atrial flutter with RVR Hiatal Hernia Sepsis Diarrhea GI bleeding, significant, s/p PRBC transfusion Cardiac suggestions for management: Manage on telemetry Gentle diuresis Follow-up electrolytes and kidney function and correct abnormalities, keep p otassium above 4 magnesium above 2 Echocardiogram Interrogation and Medtronic ICD Oral Amiodarone: 200 mg HS For now on Lovenox (therapy dose) and Plavix. When stable, we will change to Eliquis/Plavix Optimized medical therapy intermodal customer service continuation of full anticoagulation for history of paroxysmal atrial flutter is suggested (for now, on Lovenox, we will later change back to Eliquis) intermodal customer service continuation of Plavix (CAD h/o Left Main stenting) is suggested. Antianginal therapy Continuation of Statin/Ranexa/Imdur/Coreg is suggested GI evaluation for repeated nausea and vomiting is advised Thank you for consultation Further evaluation and management depends on the above and clinical course A total of 75 minutes was spent reviewing the patient record, examining the patient, making a diagnostic and therapeutic plan, discussing this plan with medical personnel, following up on diagnostic studies and following the patient for clinical stability excluding any and all procedures. At least 50% of this time was spent in direct, uknn-[id number] contact. Thank you for allowing me to participate in this patient's care. Further recommendations will depend on patient's clinical course. Please do not hesitate to contact me if you have any questions or concerns. This medical document was created using electronic medical record system with [employer] dictation system. Although this document has been carefully reviewed, there may still be some phonetic and typographical errors. These areas are purely typographical due to the imperfection of the software programs, and do not reflect any compromise in the patient's medical care. Plan discussed with: Patient, Other (nurse) AJAY SMALLWOOD MD May 12, 2025 10:49
[2025-05-12 10:59] LABS: Hepatitis B Surface Antigen Negative (Negative)
[2025-05-12 11:15] LABS: INR 1.26 (0.9-1.15); Partial Thromboplastin Time 29.4 SEC (24.5-34.5); Prothrombin Time 13.1 sec (9.3-11.8)
[2025-05-12 11:36] LABS: Hepatitis C Antibody Negative (Negative)
[2025-05-12] MEDS: ZINC SULFATE 220mg CAP or TAB PO SCH (11:42)
[2025-05-12] MEDS: MAGNESIUM OXIDE 400 MG TAB PO SCH (11:42)
[2025-05-12] MEDS: FERROUS SULFATE 325mg EC TAB PO SCH (11:42)
[2025-05-12] MEDS: CARVEDILOL 12.5 MG TAB PO SCH (11:43)
[2025-05-12] MEDS: PANTOPRAZOLE 40 MG TAB PO SCH (11:44)
[2025-05-12] MEDS: MONTELUKAST SODIUM 10 MG TAB PO SCH (11:44)
[2025-05-12] MEDS: POTASSIUM CHL 10 Meq TABLET PO SCH (11:44)
[2025-05-12] MEDS: SUCRALFATE 1 GM/10 ML ORAL SUSP PO SCH (11:45)
[2025-05-12] MEDS: ISOSORBIDE MONONITRATE ER 60 MG TAB PO SCH (11:45)
[2025-05-12] MEDS: ASCORBIC ACID 500 MG TAB PO SCH (12:01)
[2025-05-12] MEDS: RANOLAZINE ER 500 MG TAB PO SCH (12:01)
--- NOTE | 2025-05-12 12:01 | DVHPN2 ---
Progress Note Date Seen: May 12, 2025 Medical Necessity Reason Pt with a Central, PICC or Fol: No Subjective Patient reports: No new complaints Review of Systems: HEENT:Normal, CVS:Normal, RESPIRATORY:Normal, GI:Normal, :Normal, MSK:Normal, NEURO:Normal Objective vital signs Vital Sign Date Time Temp Pulse Resp B/P (MAP) Pulse Ox O2 Delivery O2 Flow Rate FiO2 05/12/25 11:45 136/63 05/12/25 11:43 80 05/12/25 09:00 98.1 18 98 98.1 05/12/25 00:43 Nasal Cannula* 3 32 Total Intake and Output 05/11/25 05/11/25 05/12/25 15:00 23:00 07:00 Intake Total 0 ml Balance 0 ml medications Current Medications Medications Dose Ordered Sig/Romaine Route Start Time Stop Time Status Last Admin Dose Admin Acetaminophen 325 mg Q4HP PRN PO 05/11/25 21:15 Morphine Sulfate 2 mg Q4HPRN PRN IV 05/11/25 21:15 Morphine Sulfate 2 mg Q30M PRN IV 05/11/25 21:15 Nitroglycerin 0.4 mg Q5MINP PRN SL 05/11/25 21:15 Amiodarone HCl 200 mg HS PO 05/12/25 22:00 Ascorbic Acid 2,000 mg DAILY PO 05/12/25 10:00 Clopidogrel Bisulfate 75 mg DAILY PO 05/12/25 10:00 Dicyclomine HCl 10 mg Q6HP PO 05/12/25 00:00 05/12/25 11:45 10 MG Docusate Sodium 100 mg BIDPRN PRN PO 05/11/25 22:15 Isosorbide Mononitrate 60 mg DAILY PO 05/12/25 10:00 05/12/25 11:45 60 MG Montelukast Sodium 10 mg DAILY PO 05/12/25 10:00 05/12/25 11:44 10 MG Pantoprazole Sodium 40 mg DAILY PO 05/12/25 10:00 05/12/25 11:44 40 MG Potassium Chloride 20 meq DAILY PO 05/12/25 10:00 05/12/25 11:44 20 MEQ Ranolazine 500 mg BID PO 05/12/25 10:00 Sucralfate 1 gm BID PO 05/12/25 10:00 05/12/25 11:45 1 GM Tramadol HCl 50 mg BID PRN PO 05/11/25 22:15 Atorvastatin Calcium 40 mg HS PO 05/12/25 22:00 Carvedilol 25 mg BID PO 05/12/25 10:00 05/12/25 11:43 25 MG Patient Own Medication 1 ml Q2WEEK SC 05/11/25 22:15 Hold Ferrous Sulfate 325 mg BID PO 05/12/25 10:00 05/12/25 11:42 325 MG Patient Own Medication 1 puff DAILY IN 05/12/25 10:00 Patient Own Medication 1,500 mg BID PO 05/12/25 10:00 Magnesium Oxide 400 mg DAILY PO 05/12/25 10:00 05/12/25 11:42 400 MG Zinc Sulfate 220 mg DAILY PO 05/12/25 10:00 05/12/25 11:42 220 MG Enoxaparin Sodium 70 mg Q12HR SC 05/12/25 10:00 Furosemide 40 mg BIDD IV 05/12/25 06:00 05/12/25 05:56 40 MG Examination: GENERAL:Normal, HEENT:Normal, NECK:Normal, LUNGS:Normal, LUNGS:Abnormal (on oxygen, rales), CVS:Normal, ABDOMEN:Normal, MSK:Normal, SKIN:Normal, NEURO:Normal, :Normal laboratory and microbiology Laboratory Tests 05/12/25 05:43 Test 05/12/25 05:43 Range/Units Serum Glucose 78 74-106 mg/dL Problem List/Assessment/Plan Problem List/Assessment/Plan #1 acute on chronic diastolic heart failure: lasix iv #2 cad s/p cabg/pci #3 copd with chronic resp failure #4 pulm fibrosis #5 paroxysmal a flutter: cont meds #6 htn #7 s/p pacer #8 h/o cva #9 pulm htn #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
[2025-05-12] MEDS: ENOXAPARIN SOD 80 MG/0.8ML SYRINGE SC SCH (12:37)
--- NOTE | 2025-05-12 13:52 | DVHINCON2 ---
GI Consult Consult Note GI consult note Date of Consultation: 05/12/2020 Chief Complaint: Nausea/vomiting Referring Physician: Dr. Martinez H&P: 75-year-old female admitted with complains of chest pain. Also having nausea and vomiting about 12 episodes, denies hematemesis. No nausea or vomiting at this time. Patient able to tolerate her diet. No melena or red blood in stool. DATE OF OPERATION: 01/29/25 PROCEDURE: Upper Endoscopy with biopsy. PREOPERATIVE INDICATION: The patient is a 74 -year-old female undergoing endoscopy for anemia and atypical chest pain POSTOPERATIVE DIAGNOSES: 1. 2-3 cm sliding-type hiatal hernia with slightly irregular squamocolumnar junction no significant erosive esophagitis 2. Mild antral gastritis and minimal duodenitis of the duodenal bulb otherwise normal examination up to the 2nd and 3rd part of the duodenal 3. Extrinsic compression of the mid esophagus likely related to aortic arch PROCEDURE PERFORMED BY: Cherri Quiroga Pathology Mild nonspecific duodenitis. Mild chronic inactive gastritis Past Medical History: Anemia, Asthma, CAD, CHF, COPD, CVA, DM, GERD, High Lipids, HTN, [place] Past Surgical History: CABG, Cholecystectomy, Hysterectomy, Pacemaker, PTCA, Tonsillectomy Social History: NO smoking, drinking ETOH and use of illegal drugs. Family History: Noncontributory Review of Systems: Constitutional: no fever, chill, weight loss HEENT: no eye pain, no hearing loss, no oral lesion, no scleral icterus Heart: no chest pain, no chest pressure Lung: no cough, no dyspnea with exertion Abdomen: see HPI Physical exam: General: NAD, AAOX3 Chest: lung barton clear to auscultation Heart: RRR, no murmur Abdomen: non-distended, no tenderness to palpation, +BS Labs: Labs Test 05/12/25 10:13 05/12/25 05:43 05/11/25 18:16 Range/Units Prothrombin Time 13.1 H 9.3-11.8 sec Prothrombin Time INR 1.26 H 0.9-1.15 Activated Partial Thromboplast Time 29.4 24.5-34.5 SEC D-Dimer, Quantitative 0.27 0.0-0.49 mg/L FEU Lactic Acid Level 0.6 0.4-2.0 mmol/L White Blood Count 7.1 4.4-10.8 10^3/uL Red Blood Count 3.21 L 4.0-5.20 10^6/uL Hemoglobin 10.2 L 12.2-16.2 g/dL Hematocrit 30.7 L 36.0-46.0 % Mean Corpuscular Volume 95.7 80.0-100.0 fL Mean Corpuscular Hemoglobin 31.7 28.0-32.0 pg Mean Corpuscular Hemoglobin Concent 33.1 32.0-36.0 g/dL Red Cell Distribution Width 14.1 11.8-14.3 % Platelet Count 207 140-450 10^3/uL Mean Platelet Volume 7.9 6.9-10.8 fL Neutrophils (%) (Auto) 77.4 37.0-80.0 % Lymphocytes (%) (Auto) 10.0 10.0-50.0 % Monocytes (%) (Auto) 7.8 0.0-12.0 % Eosinophils (%) (Auto) 4.1 0.0-7.0 % Basophils (%) (Auto) 0.7 0.0-2.0 % Neutrophils # (Auto) 5.5 1.6-8.6 10 ^3/uL Lymphocytes # (Auto) 0.7 0.4-5.4 10 ^3/uL Monocytes # (Auto) 0.6 0-1.3 10 ^3/uL Eosinophils # (Auto) 0.3 0-0.8 10 ^3/uL Basophils # (Auto) 0 0-0.2 10 ^3/uL Nucleated Red Blood Cells 0.1 % Sodium Level 143 136-145 mmol/L Potassium Level 4.8 3.5-5.1 mmol/L Chloride Level 105 98-107 mmol/L Carbon Dioxide Level 28 20-31 mmol/L Anion Gap 10 5-15 Blood Urea Nitrogen 10 9-23 mg/dL Creatinine 0.60 0.550-1.02 mg/dL Glomerular Filtration Rate Calc 93 >90 mL/min BUN/Creatinine Ratio 16.7 10.0-20.0 Serum Glucose 78 74-106 mg/dL Hemoglobin A1c < 3.8 <5.7 % A1C Calcium Level 8.6 L 8.7-10.4 mg/dL Phosphorus Level 3.4 2.4-5.1 mg/dL Magnesium Level 2.0 1.6-2.6 mg/dL Total Bilirubin 0.2 0.2-1.0 mg/dL Direct Bilirubin < 0.1 <0.3 mg/dL Aspartate Amino Transferase (AST) 51 H 13-40 U/L Alanine Aminotransferase (ALT) 21 7-40 U/L Alkaline Phosphatase 79 46-116 U/L B-Type Natriuretic Peptide 116.39 0-100 pg/mL Total Protein 5.9 5.7-8.2 g/dL Albumin 3.7 3.2-4.8 g/dL Triglycerides Level 144 < 150 mg/dL Cholesterol Level 101 < 200 mg/dL LDL Cholesterol 28 < 100 mg/dL HDL Cholesterol 59 40-59 mg/dL Vitamin B12 Level 2871 H 211-911 pg/mL Vitamin D 25-Hydroxy 54.8 30.0-100 ng/mL Thyroid Stimulating Hormone (TSH) 2.82 0.55-4.78 uIU/mL Hepatitis B Surface Antigen Negative Negative Hepatitis C Antibody Negative Negative Troponin I High Sensitivity 4 </=34 ng/L Imaging: Assessment: Nausea and vomiting improving Gastritis Duodenitis Hiatal hernia Plan: Discussed with Dr. Quiroga Supportive care recommended Advance diet as tolerated Outpatient GI follow-up recommended Plan discussed with patient and RN Thank you for this consult Date of Service: May 12, 2025 Billing Provider: EDEN SLOAN Common Visit Codes: CONSULT ONLY Consultation Codes: [id number] CONSULT <60MIN EDEN SLOAN May 12, 2025 13:52
[2025-05-12] MEDS: ONDANSETRON HCL 4 MG/2 ML VIAL IV PRN (14:45)
[2025-05-12 16:16] LABS: Urine Protein, UAD Negative (Negative)
[2025-05-12 16:29] LABS: Amphetamine Screen, Urine Neg (NEGATIVE); Barbiturate Scree,Urine Neg (NEGATIVE); Benzodiazephine Screen, Urine Neg (NEGATIVE); Cannabinoid Screen, Urine Neg (NEGATIVE); Cocaine Screen, Urine Neg (NEGATIVE); Opiate Scree,Urine Neg (NEGATIVE); Phencyclidine Screen, Urine Neg (NEGATIVE)
[2025-05-12] MEDS: CLOPIDOGREL BISULFATE 75 MG TAB PO ONE (22:09)
[2025-05-12] MEDS: AMIODARONE HCL 200 MG TAB PO SCH (22:10)
[2025-05-12] MEDS: ATORVASTATIN 20 MG TAB PO SCH (22:12)
[2025-05-13] VITALS (8 sets, daily range): BP systolic 98–125; BP diastolic 48–70; PULSE 61–80; RESP 17–22; TEMP 97.9–98.7; O2SAT 96–100
[2025-05-13 07:17] LABS: Hematocrit 30.5 % (36.0-46.0); Hemoglobin 10.3 g/dL (12.2-16.2); Mean Corpuscular Hemoglobin 31.7 pg (28.0-32.0); Mean Corpuscular Volume 93.5 fL (80.0-100.0); Nucleated Red Blood Cells % 0.1 %
[2025-05-13 07:26] LABS: Anion Gap 11 (5-15); Carbon Dioxide 29 mmol/L (20-31); Chloride 100 mmol/L (98-107); Potassium 3.8 mmol/L (3.5-5.1); Sodium 140 mmol/L (136-145)
--- NOTE | 2025-05-13 07:26 | DVHPN2 ---
Progress Note - Dictate Date Seen: May 13, 2025 Medical Necessity Reason Pt with a Central, PICC or Fol: No vital signs Vital Sign Date Time Temp Pulse Resp B/P (MAP) Pulse Ox O2 Delivery O2 Flow Rate FiO2 05/13/25 06:00 105/68 05/13/25 04:33 98.6 72 18 100 98.6 05/12/25 20:00 Nasal Cannula* 3 32 Total Intake and Output 05/12/25 05/12/25 05/13/25 15:00 23:00 07:00 Intake Total 0 ml 800 ml Balance 0 ml 800 ml medications Current Medications Medications Dose Ordered Sig/Romaine Route Start Time Stop Time Status Last Admin Dose Admin Acetaminophen 325 mg Q4HP PRN PO 05/11/25 21:15 Morphine Sulfate 2 mg Q4HPRN PRN IV 05/11/25 21:15 Morphine Sulfate 2 mg Q30M PRN IV 05/11/25 21:15 Nitroglycerin 0.4 mg Q5MINP PRN SL 05/11/25 21:15 Amiodarone HCl 200 mg HS PO 05/12/25 22:00 05/12/25 22:10 200 MG Clopidogrel Bisulfate 75 mg DAILY PO 05/12/25 10:00 Cancel Dicyclomine HCl 10 mg Q6HP PO 05/12/25 00:00 05/13/25 06:00 10 MG Docusate Sodium 100 mg BIDPRN PRN PO 05/11/25 22:15 Isosorbide Mononitrate 60 mg DAILY PO 05/12/25 10:00 05/12/25 11:45 60 MG Montelukast Sodium 10 mg DAILY PO 05/12/25 10:00 05/12/25 11:44 10 MG Pantoprazole Sodium 40 mg DAILY PO 05/12/25 10:00 05/12/25 11:44 40 MG Potassium Chloride 20 meq DAILY PO 05/12/25 10:00 05/12/25 11:44 20 MEQ Ranolazine 500 mg BID PO 05/12/25 10:00 05/12/25 22:13 500 MG Sucralfate 1 gm BID PO 05/12/25 10:00 05/12/25 22:14 1 GM Tramadol HCl 50 mg BID PRN PO 05/11/25 22:15 Atorvastatin Calcium 40 mg HS PO 05/12/25 22:00 10/6/25 22:12 40 MG Carvedilol 25 mg BID PO 05/12/25 10:00 05/12/25 22:11 25 MG Ferrous Sulfate 325 mg BID PO 05/12/25 10:00 05/12/25 22:13 325 MG Magnesium Oxide 400 mg DAILY PO 05/12/25 10:00 05/12/25 11:42 400 MG Zinc Sulfate 220 mg DAILY PO 05/12/25 10:00 05/12/25 11:42 220 MG Enoxaparin Sodium 70 mg Q12HR SC 05/12/25 10:00 05/12/25 23:04 70 MG Furosemide 40 mg BIDD IV 05/12/25 06:00 05/12/25 05:56 40 MG Saccharomyces Boulardii 250 mg DAILY PO 05/13/25 10:00 Ondansetron HCl 4 mg Q6HPRN PRN IV 05/12/25 13:45 05/12/25 22:04 4 MG Clopidogrel Bisulfate 75 mg DAILY PO 05/12/25 20:00 UNV Clopidogrel Bisulfate 75 mg DAILY PO 05/13/25 10:00 laboratory and microbiology Laboratory Tests 05/13/25 06:03 Test 05/13/25 06:03 Range/Units Serum Glucose Pending Assessment/Plan 75-year-old female presented with few days of repeated nausea and vomiting. She mentions that after many episodes of nausea and vomiting she started to feel bilateral anterior chest tenderness. Cardiology is involved for cardiac aspects of care. Patient is known to our practice from outside and before. Does have baseline history of coronary artery disease and is status post PCI/CABG. Mentions that she has been taking her outside medications (including Eliquis/Plavix). Patient had right and left heart catheterization and BRAD in January 2025. Since admission, serial troponin has been negative. It is of note that the patient has had repeated GI bleedings and has had PRBC transfusion for it. Lying comfortably flat in bed. No JVD. pink mucosa. Lungs reveal scattered rhonchi. Cardiac: Regular, no thrills/murmur. Abdomen is soft. No hepatomegaly. Bowel sounds positive. Lower extremities do not reveal edema. Dorsalis pedis is 2+ bilateral Past medical history includes diabetes mellitus, hyperlipidemia, hypertension, diastolic heart failure, peripheral artery disease, GERD, anxiety, anemia, asthma, coronary artery disease, status post CABG and PCI, status post pacemaker implantation (Medtronic), status post old CVA, paroxysmal atrial flutter (on Eliquis), COPD on home oxygen, fibromyalgia, pulmonary hypertension, history of poor functional status, history of GI bleeding, pulmonary fibrosis, hiatal hernia, ex-smoker, status post gold cholecystectomy/hysterectomy. Is known to have closed grafts for CABG. Has had high risk PCI/left main in [facility] (few years back). Does have history of abnormal nuclear stress test and the plan has been to manage her medically. Has been kept on Eliquis and Plavix as outpatient. She is ex-smoker. Left heart catheterization revealed multivessel coronary artery disease. SVG nourishing 1 of the ramus intermedius was diseased but the decision was to manage it medically (ramus intermedius had good flow from patent left main: left main was stented before). Has been offered to go for Watchman device as outpatient. It is of note that the patient have diastolic heart failure and also pulmonary fibrosis. She does have pulmonary hypertension. Components of both type 2 and type 3 pulmonary hypertension can be present. Echocardiogram of January 09, 2023 revealed LVEF of 55 to 60%, mild concentric left ventricular hypertrophy, no wall motion abnormality, mild biatrial enlargement, pacing wire in right-sided chambers, mild to moderate aortic insufficiency, mild mitral regurgitation, mild to moderate tricuspid regurgitation and right ventricular systolic pressure of 35 mmHg Echocardiogram of March 07, 2023 had revealed ejection fraction of 55 to 60%, mild concentric left ventricular hypertrophy, mild AI/MR/PI, mild biatrial enlargement, pacemaker wire in the right-sided chambers and right ventricular systolic pressure of 34 mmHg Echocardiogram of September 06, 2023 revealed ejection fraction of 55% and pacemaker in right-sided chambers Echocardiogram of December 26, 2023 had reported ejection fraction of 55-60%, no wall motion abnormality, [id number] aortic insufficiency, mild MR, moderate TR and right ventricular systolic pressure 42 mm Hg Echocardiogram of August 30, 2024 reported ejection fraction of 55-60%, no wall motion abnormality, mild biatrial enlargement, pacemaker in the right-sided chambers, mild AI/MR and moderate tricuspid regurgitation. Right ventricular systolic pressure was assessed at 41 mm Hg. Echocardiogram of December 20, 2024 (performed in the office) revealed ejection fraction of 60-65%, mild concentric left ventricular hypertrophy, pseudo normal LV filling, mild biatrial enlargement, mild right ventricular enlargement with good systolic function, moderate aortic insufficiency, aortic sclerosis with no stenosis, mild mitral annular calcification, [id number] MR/TR and right ventricular systolic pressure of 53 mm Hg. Echocardiogram of January 10, 2025 revealed mild concentric left ventricular hypertrophy, ejection fraction of 60-65%, pseudo normal LV filling, [id number] aortic insufficiency, mild mitral regurgitation, moderate tricuspid regurgitation and right ventricular systolic pressure of 67 mm Hg. BRAD of January 13, 2025 revealed no significant valvular disease Right and left heart catheterization of January 13, 2025 revealed multivessel coronary artery disease LVEF of around 50%; Apical aneurysm; Increased LVEDP (19 mm Hg); No pulmonary hypertension; Patent left main stent into LCX (dominant vessel) with no significant disease; Proximal LAD was TANK TRUCK LOADER with minor parallel collaterals. LAD was a diffusely diseased vessel with areas of focal aneurysm; Presence of 2 ramus intermedius; One of the ramus intermedius is with mild disease; Second ramus: Relatively small vessel with mild disease. There was SVG 'also' nourishing it. SVG itself had ostial and middle SVG section disease (decision was made to manage it medically); DANIELLE was atretic but patent; There was 2 other SVG's which were TANK TRUCK LOADER at ostium and suggestion was for medical therapy Hemoglobin: 10.8 - 10.2 - 10.3 White blood cell: 6.3 - 7.1 - 8.1 Creatinine: 0.74 - 0.60 - 0.72 Potassium: 4.5 - 4.8 - 3.8 Troponin (high sensitive): 3 - 4 BNP: 116.39 TSH: 2.82 D-Dimer: 0.27 (WNL) UDS: non-revealing Chest x-ray revealed: IMPRESSION: Diffuse interstitial prominence which may be from fibrotic changes with superimposed pulmonary edema/ atypical pneumonia. Obscuration of the left hemidiaphragm with indistinctness of the right hemidiaphragm which may be from pleural effusion with associated atelectasis. EKG revealed A paced with nonspecific ST-T changes. Another EKG revealed bundle branch block. Telemetry reveals sinus rhythm and occasions NSVT [employer] 3Dtronic interrogation: Battery remaining longevity: 11.4 years; AAIR-DDDR: 70/130; Program sensitivity: A 0.3/RV 0.45 mV; A pace: 66%; V pace: <0.1%; No episodes; Normal functioning Medtronic pacemaker Patient is a 75-year-old female who presented with repeated nausea and vomiting which was followed by anterior chest discomfort/tenderness. Chest pain has been pleuritic. Serial high sensitive troponin has been negative. Acute coronary syndrome is not considered. It is of note that the patient had right and left heart catheterization in January 2025 (suggestion was for medical management). Is referred for elective/outpatient Watchman which has not happened before. He is kept on Eliquis/Plavix as outpatient. The dose of Eliquis and has been 2.5 b.i.d. (has had repeated GI bleedings secondary to hiatal hernia). Chest x-ray revealed congestion of the lungs versus pneumonia. It is of note that the patient does have baseline history of diastolic heart failure and component of acute on chronic diastolic heart failure could be present. Was evaluated by GI Chest discomfort, atypical Pleuritic chest pain Nausea and vomiting, repeated Acute on chronic diastolic heart failure Coronary artery disease, status post CABG/PCI Paroxysmal atrial flutter (on Eliquis as outpatient) COPD/Emphysema Pulmonary fibrosis Pulmonary hypertension, history of Chronic diastolic heart failure Status post pacemaker Hypokalemia Paroxysmal atrial flutter with RVR Hiatal Hernia Sepsis Diarrhea GI bleeding, significant, s/p PRBC transfusion Cardiac suggestions for management: Manage on telemetry Gentle diuresis Follow-up electrolytes and kidney function and correct abnormalities, keep potassium above 4 magnesium above 2 Awaiting Echocardiogram Oral Amiodarone: 200 mg HS For now on Lovenox (therapy dose) and Plavix. When stable, we will change to Eliquis/Plavix Optimized medical therapy terminal clerk continuation of full anticoagulation for history of paroxysmal atrial flutter is suggested (for now, on Lovenox, we will later change back to Eliquis) long-term continuation of Plavix (CAD h/o Left Main stenting) is suggested. Antianginal therapy Continuation of Statin/Ranexa/Imdur/Coreg is suggested Was evaluated by GI Further evaluation and management depends on the above and clinical course A total of 55 minutes was spent reviewing the patient record, examining the patient, making a diagnostic and therapeutic plan, discussing this plan with medical personnel, following up on diagnostic studies and following the patient for clinical stability excluding any and all procedures. At least 50% of this time was spent in direct, [id number] contact. Thank you for allowing me to participate in this patient's care. Further recommendations will depend on patient's clinical course. Please do not hesitate to contact me if you have any questions or concerns. This medical document was created using electronic medical record system with Se[employer] computerized dictation system. Although this document has been carefully reviewed, there may still be some phonetic and typographical errors. These areas are purely typographical due to the imperfection of the software programs, and do not reflect any compromise in the patient's medical care. Dietary Evaluation Review Comments: 1. Monitor PO intake to meet 75% of her needs 2. Refer to PCP for medication review 3. minimize her medication list Expected Outcomes/Goals: take less medication if possible, gradual wt loss Plan discussed with: Patient, Other (nurse) AJAY SMALLWOOD MD May 13, 2025 07:26
[2025-05-13 07:28] LABS: Calcium 8.9 mg/dL (8.7-10.4)
[2025-05-13 07:32] LABS: BUN/Creatinine Ratio 31.9 (10.0-20.0); Blood Urea Nitrogen 23 mg/dL (9-23); Glucose 94 mg/dL (74-106)
--- NOTE | 2025-05-13 08:54 | DVHNC2 ---
Procedure - Medtronic interrogation: Battery remaining longevity: 11.4 years AAIR-DDDR: 70/130 Program sensitivity: A 0.3/RV 0.45 mV A pace: 66% V pace: <0.1% No episodes Normal functioning Medtronic pacemaker AJAY SMALLWOOD MD May 13, 2025 08:54
[2025-05-13] MEDS: FUROSEMIDE 40 MG/4 ML VIAL IV ONE (09:36)
[2025-05-13] MEDS: FLORASTOR (S. BOULARDII) 250 MG CAP PO SCH (10:00)
[2025-05-13] MEDS ORDERED: CLOPIDOGREL BISULFATE 75 MG TAB PO SCH (10:00)
--- NOTE | 2025-05-13 11:21 | DVHPN2 ---
Progress Note Date Seen: May 13, 2025 Medical Necessity Reason Pt with a Central, PICC or Fol: No Subjective Patient reports: No new complaints Review of Systems: HEENT:Normal, CVS:Normal, RESPIRATORY:Normal, GI:Normal, :Normal, MSK:Normal, NEURO:Normal Objective vital signs Vital Sign Date Time Temp Pulse Resp B/P (MAP) Pulse Ox O2 Delivery O2 Flow Rate FiO2 05/13/25 09:36 105/69 05/13/25 09:34 70 05/13/25 09:00 98.4 18 100 98.4 05/12/25 20:00 Nasal Cannula* 3 32 Total Intake and Output 05/12/25 05/12/25 05/13/25 15:00 23:00 07:00 Intake Total 0 ml 800 ml Balance 0 ml 800 ml medications Current Medications Medications Dose Ordered Sig/Romaine Route Start Time Stop Time Status Last Admin Dose Admin Acetaminophen 325 mg Q4HP PRN PO 05/11/25 21:15 Morphine Sulfate 2 mg Q4HPRN PRN IV 05/11/25 21:15 Morphine Sulfate 2 mg Q30M PRN IV 05/11/25 21:15 Nitroglycerin 0.4 mg Q5MINP PRN SL 05/11/25 21:15 Amiodarone HCl 200 mg HS PO 05/12/25 22:00 05/12/25 22:10 200 MG Clopidogrel Bisulfate 75 mg DAILY PO 05/12/25 10:00 Cancel Dicyclomine HCl 10 mg Q6HP PO 05/12/25 00:00 05/13/25 06:00 10 MG Docusate Sodium 100 mg BIDPRN PRN PO 05/11/25 22:15 Isosorbide Mononitrate 60 mg DAILY PO 05/12/25 10:00 05/13/25 09:35 60 MG Montelukast Sodium 10 mg DAILY PO 05/12/25 10:00 05/12/25 11:44 10 MG Pantoprazole Sodium 40 mg DAILY PO 05/12/25 10:00 05/13/25 09:28 40 MG Potassium Chloride 20 meq DAILY PO 05/12/25 10:00 05/12/25 11:44 20 MEQ Ranolazine 500 mg BID PO 05/12/25 10:00 05/12/25 22:13 500 MG Sucralfate 1 gm BID PO 05/12/25 10:00 05/13/25 09:28 1 GM Tramadol HCl 50 mg BID PRN PO 05/11/25 22:15 Atorvastatin Calcium 40 mg HS PO 05/12/25 22:00 05/12/25 22:12 40 MG Carvedilol 25 mg BID PO 05/12/25 10:00 05/13/25 09:34 25 MG Ferrous Sulfate 325 mg BID PO 05/12/25 10:00 05/13/25 09:28 325 MG Magnesium Oxide 400 mg DAILY PO 05/12/25 10:00 05/12/25 11:42 400 MG Zinc Sulfate 220 mg DAILY PO 05/12/25 10:00 05/12/25 11:42 220 MG Enoxaparin Sodium 70 mg Q12HR SC 05/12/25 10:00 05/13/25 09:39 70 MG Furosemide 40 mg BIDD IV 05/12/25 06:00 05/12/25 05:56 40 MG Saccharomyces Boulardii 250 mg DAILY PO 05/13/25 10:00 Ondansetron HCl 4 mg Q6HPRN PRN IV 05/12/25 13:45 05/12/25 22:04 4 MG Clopidogrel Bisulfate 75 mg DAILY PO 05/12/25 20:00 UNV Clopidogrel Bisulfate 75 mg DAILY PO 05/13/25 10:00 Examination: GENERAL:Normal, HEENT:Normal, NECK:Normal, LUNGS:Normal, CVS:Normal, ABDOMEN:Normal, MSK:Normal, SKIN:Normal, NEURO:Normal, :Normal laboratory and microbiology Laboratory Tests 05/13/25 06:03 Test 05/13/25 06:03 Range/Units Serum Glucose 94 74-106 mg/dL Problem List/Assessment/Plan Problem List/Assessment/Plan #1 acute on chronic diastolic heart failure: lasix iv #2 cad s/p cabg/pci #3 copd with chronic resp failure #4 pulm fibrosis #5 paroxysmal a flutter: cont meds #6 htn #7 s/p pacer #8 h/o cva #9 pulm htn #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 Monitor PO intake to meet 75% of her needs 2. Refer to PCP for medication review 3. minimize her medication list Expected Outcomes/Goals: take less medication if possible, gradual wt loss Date of Service: May 13, 2025 Billing Provider: CALE FAGAN MD Common Visit Codes: [id number] INP/OBS CARE(HIGH) CALE FAGAN MD May 13, 2025 11:21
--- NOTE | 2025-05-13 14:07 | DVHPN2 ---
Subjective Patient having nausea and vomiting again Denies hematemesis Changes from previous H/P or p: No Changes Objective Vitals Vital Signs Date Time Temp Pulse Resp B/P (MAP) Pulse Ox O2 Delivery O2 Flow Rate FiO2 05/13/25 09:36 105/69 05/13/25 09:34 70 05/13/25 09:00 98.4 18 100 98.4 05/13/25 08:00 Nasal Cannula* 3 32 Intake/Output Intake and Output 05/13/25 07:00 Intake Total 800 ml Balance 800 ml Intake Oral 800 ml # Voids 20 # Bowel Movements 1 Exam General: NAD, AAOX3 Chest: lung barton clear to auscultation Heart: RRR, no murmur Abdomen: non-distended, no tenderness to palpation, +BS Medications Current Medications Medications Dose Ordered Sig/Romaine Route Start Time Stop Time Status Last Admin Dose Admin Acetaminophen 325 mg Q4HP PRN PO 05/11/25 21:15 Morphine Sulfate 2 mg Q4HPRN PRN IV 05/11/25 21:15 Morphine Sulfate 2 mg Q30M PRN IV 05/11/25 21:15 Nitroglycerin 0.4 mg Q5MINP PRN SL 05/11/25 21:15 Amiodarone HCl 200 mg HS PO 05/12/25 22:00 05/12/25 22:10 200 MG Clopidogrel Bisulfate 75 mg DAILY PO 05/12/25 10:00 Cancel Dicyclomine HCl 10 mg Q6HP PO 05/12/25 00:00 05/13/25 12:27 10 MG Docusate Sodium 100 mg BIDPRN PRN PO 05/11/25 22:15 Isosorbide Mononitrate 60 mg DAILY PO 05/12/25 10:00 05/13/25 09:35 60 MG Montelukast Sodium 10 mg DAILY PO 05/12/25 10:00 05/13/25 12:27 10 MG Pantoprazole Sodium 40 mg DAILY PO 05/12/25 10:00 05/13/25 09:28 40 MG Potassium Chloride 20 meq DAILY PO 05/12/25 10:00 05/13/25 12:27 20 MEQ Ranolazine 500 mg BID PO 05/12/25 10:00 05/13/25 12:26 500 MG Sucralfate 1 gm BID PO 05/12/25 10:00 05/13/25 09:28 1 GM Tramadol HCl 50 mg BID PRN PO 05/11/25 22:15 Atorvastatin Calcium 40 mg HS PO 05/12/25 22:00 05/12/25 22:12 40 MG Carvedilol 25 mg BID PO 05/12/25 10:00 05/13/25 09:34 25 MG Ferrous Sulfate 325 mg BID PO 05/12/25 10:00 05/13/25 09:28 325 MG Magnesium Oxide 400 mg DAILY PO 05/12/25 10:00 05/13/25 12:27 400 MG Zinc Sulfate 220 mg DAILY PO 05/12/25 10:00 05/13/25 12:26 220 MG Enoxaparin Sodium 70 mg Q12HR SC 05/12/25 10:00 05/13/25 09:39 70 MG Saccharomyces Boulardii 250 mg DAILY PO 05/13/25 10:00 05/13/25 10:00 250 MG Ondansetron HCl 4 mg Q6HPRN PRN IV 05/12/25 13:45 05/13/25 12:26 4 MG Clopidogrel Bisulfate 75 mg DAILY PO 05/12/25 20:00 UNV Clopidogrel Bisulfate 75 mg DAILY PO 05/13/25 10:00 Furosemide 40 mg QAM IV 05/14/25 07:00 Laboratory Results Laboratory Tests 05/13/25 06:03 Chemistry Test 05/13/25 06:03 Calcium Level 8.9 mg/dL (8.7-10.4) Urinalysis Test 05/12/25 15:30 Urine Color Yellow (Yellow) Urine Clarity Clear (Clear) Urine pH 5.5 (5.0-9.0) Urine Specific [place] 1.028 (1.001-1.035) Urine Protein Negative (Negative) Urine Ketones Trace (Negative) Urine Blood Negative /uL (Negative) Urine Nitrite Negative (Negative) Urine Bilirubin Negative (Negative) Urine Urobilinogen Normal mg/dL (Negative) Urine Leukocyte Esterase Negative /uL (Negative) Urine RBC 1 /hpf (0 - 4) Urine Microscopic WBC 1 /HPF (0-5) Urine Squamous Epithelial Cells Few /hpf (<5) Urine Bacteria None seen /hpf (None Seen) Urine Mucus Few (None Seen) Urine Glucose Normal mg/dL (Normal) Assessment/Plan Assessment/Plan Nausea and vomiting Gastritis Duodenitis Hiatal hernia Plan: Discussed with Dr. Quiroga Medical management recommended at this time Zofran and Protonix We will continue to monitor patient Plan discussed with: Patient, Other (RN) Date of Service: May 13, 2025 Billing Provider: EDEN SLOAN Common Visit Codes: [id number] INP/OBS CARE(HIGH) EDEN SLOAN May 13, 2025 14:07
--- NOTE | 2025-05-13 14:40 | DVHSR ---
APPROVED REPORT EXAM: Two-dimensional and M-mode echocardiogram with Doppler and color Doppler. Blood Pressure: 105/68 mmHg INDICATION chf Surgery/Intervention Pacemaker: CABG: RISK FACTORS Height: 5', Weight: 158 DIMENSIONS LVDd3.7 (3.8-5.7cm)LA (2D)3.8 (1.9-4.0cm)Aortic Root2.9 (2.0-3.7cm) LVDs2.9 (2.5-4.0cm)LA (MM) (1.9-4.0cm)Aortic Cusp Exc1.2 (1.5-2.0cm) EF (%) 50.0 (55-70%)Rt. Atrium3.7 (1.9-4.0cm)Asc. Aorta cm IVSd0.8 (0.7-1.1cm)RV (D) (1.8-2.4cm) PWd0.7 (0.7-1.1cm) Mitral Valve MitralMitral Stenosis E wave0.80m/sMV Mean GR.mmHg A wave0.88m/sMV Peak GR.84mmHg E/A ratio0.92D MVAcm2 DECEL [id number] 1/2 Timems Aortic Valve Aortic ValveAortic Stenosis V10.89m/Jem Mean GR.6mmHg V21.75m/Jem Peak GR.12mmHg LVOT Diameter1.6 (1.8-2.4cm)Doppler AVA1.02cm2 AI P 1/2 Afmk209.00ms Pulmonic Valve V21.01m/s Tricuspid Valve TR Velocity2.59m/s [id number] Conclusion Technically limited study secondary to poor acoustic window. Left ventricle: Left ventricle was normal-sized. LVEF was around 55%. Even though no gross wall mot ion abnormality was seen, its presence can not be ruled out on the basis of this study. Right ventricle was normal-sized with reduced systolic function. Both atria were mildly dilated. Pa cing wire was seen in right-sided chambers. Aortic valve was not well visualized. [id number] aortic insufficiency was seen. Aortic sclero sis with no stenosis was identified. Mild mitral regurgitation was seen. Moderate tricuspid regurgi tation was seen. Pulmonary valve was not visualized. Right ventricular systolic pressure was assessed at 37 mm Hg. There was no pericardial effusion.
[2025-05-13] MEDS: CLOPIDOGREL BISULFATE 75 MG TAB PO SCH (20:46)
[2025-05-14] VITALS (8 sets, daily range): BP systolic 106–133; BP diastolic 55–83; PULSE 63–76; RESP 16–19; TEMP 97.7–98.6; O2SAT 96–100
[2025-05-14] MEDS: FUROSEMIDE 40 MG/4 ML VIAL IV SCH (07:18)
--- NOTE | 2025-05-14 07:35 | DVHPN2 ---
Progress Note - Dictate Date Seen: May 14, 2025 Medical Necessity Reason Pt with a Central, PICC or Fol: No vital signs Vital Sign Date Time Temp Pulse Resp B/P (MAP) Pulse Ox O2 Delivery O2 Flow Rate FiO2 05/14/25 07:18 123/64 05/14/25 05:00 98.6 63 18 96 98.6 05/13/25 20:00 Nasal Cannula* 3 32 Total Intake and Output 05/13/25 05/13/25 05/14/25 15:00 23:00 07:00 Intake Total 600 ml Balance 600 ml medications Current Medications Medications Dose Ordered Sig/Romaine Route Start Time Stop Time Status Last Admin Dose Admin Acetaminophen 325 mg Q4HP PRN PO 05/11/25 21:15 Morphine Sulfate 2 mg Q4HPRN PRN IV 05/11/25 21:15 Morphine Sulfate 2 mg Q30M PRN IV 05/11/25 21:15 Nitroglycerin 0.4 mg Q5MINP PRN SL 05/11/25 21:15 Amiodarone HCl 200 mg HS PO 05/12/25 22:00 05/13/25 22:01 200 MG Clopidogrel Bisulfate 75 mg DAILY PO 05/12/25 10:00 Cancel Dicyclomine HCl 10 mg Q6HP PO 05/12/25 00:00 05/14/25 07:18 10 MG Docusate Sodium 100 mg BIDPRN PRN PO 05/11/25 22:15 Isosorbide Mononitrate 60 mg DAILY PO 05/12/25 10:00 05/13/25 09:35 60 MG Montelukast Sodium 10 mg DAILY PO 05/12/25 10:00 05/13/25 12:27 10 MG Pantoprazole Sodium 40 mg DAILY PO 05/12/25 10:00 05/13/25 09:28 40 MG Potassium Chloride 20 meq DAILY PO 05/12/25 10:00 05/13/25 12:27 20 MEQ Ranolazine 500 mg BID PO 05/12/25 10:00 05/13/25 22:00 500 MG Sucralfate 1 gm BID PO 05/12/25 10:00 05/13/25 21:59 1 GM Tramadol HCl 50 mg BID PRN PO 05/11/25 22:15 Atorvastatin Calcium 40 mg HS PO 05/12/25 22:00 05/13/25 22:00 40 MG Carvedilol 25 mg BID PO 05/12/25 10:00 05/13/25 22:03 25 MG Ferrous Sulfate 325 mg BID PO 05/12/25 10:00 05/13/25 21:59 325 MG Magnesium Oxide 400 mg DAILY PO 05/12/25 10:00 05/13/25 12:27 400 MG Zinc Sulfate 220 mg DAILY PO 05/12/25 10:00 05/13/25 12:26 220 MG Enoxaparin Sodium 70 mg Q12HR SC 05/12/25 10:00 05/13/25 22:03 70 MG Saccharomyces Boulardii 250 mg DAILY PO 05/13/25 10:00 05/13/25 10:00 250 MG Ondansetron HCl 4 mg Q6HPRN PRN IV 05/12/25 13:45 05/13/25 18:38 4 MG Clopidogrel Bisulfate 75 mg DAILY PO 05/12/25 20:00 UNV Furosemide 40 mg QAM IV 05/14/25 07:00 05/14/25 07:18 40 MG Clopidogrel Bisulfate 75 mg HS@2000 PO 05/13/25 20:00 05/13/25 20:46 75 MG laboratory and microbiology Laboratory Tests 05/13/25 06:03 Test 05/13/25 06:03 Range/Units Serum Glucose 94 74-106 mg/dL Assessment/Plan 75-year-old female presented with few days of repeated nausea and vomiting. She mentions that after many episodes of nausea and vomiting she started to feel bilateral anterior chest tenderness. Cardiology is involved for cardiac aspects of care. Patient is known to our practice from outside and before. Does have baseline history of coronary artery disease and is status post PCI/CABG. Mentions that she has been taking her outside medications (including Eliquis/Plavix). Patient had right and left heart catheterization and BRAD in January 2025. Since admission, serial troponin has been negative. It is of note that the patient has had repeated GI bleedings and has had PRBC transfusion for it. Lying comfortably flat in bed. No JVD. pink mucosa. Lungs reveal scattered rhonchi. Cardiac: Regular, no thrills/murmur. Abdomen is soft. No hepatomegaly. Bowel sounds positive. Lower extremities do not reveal edema. Dorsalis pedis is 2+ bilateral Past medical history includes diabetes mellitus, hyperlipidemia, hypertension, diastolic heart failure, peripheral artery disease, GERD, anxiety, anemia, asthma, coronary artery disease, status post CABG and PCI, status post pacemaker implantation (Medtronic), status post old CVA, paroxysmal atrial flutter (on Eliquis), COPD on home oxygen, fibromyalgia, pulmonary hypertension, history of poor functional status, history of GI bleeding, pulmonary fibrosis, hiatal hernia, ex-smoker, status post gold cholecystectomy/hysterectomy. Is known to have closed grafts for CABG. Has had high risk PCI/left main in [facility] (few years back). Does have history of abnormal nuclear stress test and the plan has been to manage her medically. Has been kept on Eliquis and Plavix as outpatient. She is ex-smoker. Left heart catheterization revealed multivessel coronary artery disease. SVG nourishing 1 of the ramus intermedius was diseased but the decision was to manage it medically (ramus intermedius had good flow from patent left main: left main was stented before). Has been offered to go for Watchman device as outpatient. It is of note that the patient have diastolic heart failure and also pulmonary fibrosis. She does have pulmonary hypertension. Components of both type 2 and type 3 pulmonary hypertension can be present. Echocardiogram of January 09, 2023 revealed LVEF of 55 to 60%, mild concentric left ventricular hypertrophy, no wall motion abnormality, mild biatrial enlargement, pacing wire in right-sided chambers, mild to moderate aortic insufficiency, mild mitral regurgitation, mild to moderate tricuspid regurgitation and right ventricular systolic pressure of 35 mmHg Echocardiogram of March 07, 2023 had revealed ejection fraction of 55 to 60%, mild concentric left ventricular hypertrophy, mild AI/MR/PI, mild biatrial enlargement, pacemaker wire in the right-sided chambers and right ventricular systolic pressure of 34 mmHg Echocardiogram of September 06, 2023 revealed ejection fraction of 55% and pacemaker in right-sided chambers Echocardiogram of December 26, 2023 had reported ejection fraction of 55-60%, no wall motion abnormality, orgw-[id number]-[id number] aortic insufficiency, mild MR, moderate TR and right ventricular systolic pressure 42 mm Hg Echocardiogram of August 30, 2024 reported ejection fraction of 55-60%, no wall motion abnormality, mild biatrial enlargement, pacemaker in the right-sided chambers, mild AI/MR and moderate tricuspid regurgitation. Right ventricular systolic pressure was assessed at 41 mm Hg. Echocardiogram of December 20, 2024 (performed in the office) revealed ejection fraction of 60-65%, mild concentric left ventricular hypertrophy, pseudo normal LV filling, mild biatrial enlargement, mild right ventricular enlargement with good systolic function, moderate aortic insufficiency, aortic sclerosis with no stenosis, mild mitral annular calcification, kkee-qb-yajrfvic MR/TR and right ventricular systolic pressure of 53 mm Hg. Echocardiogram of January 10, 2025 revealed mild concentric left ventricular hypertrophy, ejection fraction of 60-65%, pseudo normal LV filling, [id number] aortic insufficiency, mild mitral regurgitation, moderate tricuspid regurgitation and right ventricular systolic pressure of 67 mm Hg. BRAD of January 13, 2025 revealed no significant valvular disease Right and left heart catheterization of January 13, 2025 revealed multivessel coronary artery disease LVEF of around 50%; Apical aneurysm; Increased LVEDP (19 mm Hg); No pulmonary hypertension; Patent left main stent into LCX (dominant vessel) with no significant disease; Proximal LAD was GOLD LEAF PRINTER with minor parallel collaterals. LAD was a diffusely diseased vessel with areas of focal aneurysm; Presence of 2 ramus intermedius; One of the ramus intermedius is with mild disease; Second ramus: Relatively small vessel with mild disease. There was SVG 'also' nourishing it. SVG itself had ostial and middle SVG section disease (decision was made to manage it medically); DANIELLE was atretic but patent; There was 2 other SVG's which were GOLD LEAF PRINTER at ostium and suggestion was for medical therapy Hemoglobin: 10.8 - 10.2 - 10.3 White blood cell: 6.3 - 7.1 - 8.1 Creatinine: 0.74 - 0.60 - 0.72 Potassium: 4.5 - 4.8 - 3.8 Troponin (high sensitive): 3 - 4 BNP: 116.39 TSH: 2.82 D-Dimer: 0.27 (WNL) UDS: non-revealing Stool OB: positive Chest x-ray revealed: IMPRESSION: Diffuse interstitial prominence which may be from fibrotic changes with superimposed pulmonary edema/ atypical pneumonia. Obscuration of the left hemidiaphragm with indistinctness of the right hemidiaphragm which may be from pleural effusion with associated atelectasis. EKG revealed A paced with nonspecific ST-T changes. Another EKG revealed bundle branch block. Telemetry reveals sinus rhythm and occasions NSVT Medtronic interrogation: Battery remaining longevity: 11.4 years; AAIR-DDDR: 70/130; Program sensitivity: A 0.3/RV 0.45 mV; A pace: 66%; V pace: <0.1%; No episodes; Normal functioning Medtronic pacemaker Echocardiogram revealed: Technically limited study secondary to poor acoustic window. Left ventricle: Left ventricle was normal-sized. LVEF was around 55%. Even though no gross wall motion abnormality was seen, its presence can not be ruled out on the basis of this study. Right ventricle was normal-sized with reduced systolic function. Both atria were mildly dilated. Pacing wire was seen in right-sided chambers. Aortic valve was not well visualized. Aytg-ji-wwxgzofi aortic insufficiency was seen. Aortic sclerosis with no stenosis was identified. Mild mitral regurgitation was seen. Moderate tricuspid regurgitation was seen. Pulmonary valve was not visualized. Right ventricular systolic pressure was assessed at 37 mm Hg. There was no pericardial effusion. Patient is a 75-year-old female who presented with repeated nausea and vomiting which was followed by anterior chest discomfort/tenderness. Chest pain has been pleuritic. Serial high sensitive troponin has been negative. Acute coronary syndrome is not considered. It is of note that the patient had right and left heart catheterization in January 2025 (suggestion was for medical management). Is referred for elective/outpatient Watchman which has not happened before. He is kept on Eliquis/Plavix as outpatient. The dose of Eliquis and has been 2.5 b.i.d. (has had repeated GI bleedings secondary to hiatal hernia). Chest x-ray revealed congestion of the lungs versus pneumonia. It is of note that the patient does have baseline history of diastolic heart failure and component of acute on chronic diastolic heart failure could be present. Was evaluated by GI. Stool OB is positive. H/H is stable. Chest discomfort, atypical Pleuritic chest pain Nausea and vomiting, repeated Acute on chronic diastolic heart failure Coronary artery disease, status post CABG/PCI Paroxysmal atrial flutter (on Eliquis as outpatient) COPD/Emphysema Pulmonary fibrosis Pulmonary hypertension, history of Chronic diastolic heart failure Status post pacemaker Hypokalemia Paroxysmal atrial flutter with RVR Hiatal Hernia Sepsis Diarrhea GI bleeding, significant, s/p PRBC transfusion Cardiac suggestions for management: Manage on telemetry Gentle diuresis Follow-up electrolytes and kidney function and correct abnormalities, keep potassium above 4 magnesium above 2 Oral Amiodarone: 200 mg HS On Lovenox (therapy dose) and Plavix. Stop Lovenox and restart Eliquis: 2.5 mg PO BID Continue Plavix at 75 mg daily Optimized medical therapy FDC continuation of full anticoagulation for history of paroxysmal atrial flutter is suggested (for now, on Lovenox, we will later change back to Eliquis) FDC continuation of Plavix (CAD h/o Left Main stenting) is suggested. Antianginal therapy Continuation of Statin/Ranexa/Imdur/Coreg is suggested Was evaluated by GI Cardiac wilcox, stable and can be followed as outpatient Further evaluation and management depends on the above and clinical course A total of 55 minutes was spent reviewing the patient record, examining the patient, making a diagnostic and therapeutic plan, discussing this plan with medical personnel, following up on diagnostic studies and following the patient for clinical stability excluding any and all procedures. At least 50% of this time was spent in direct, [id number]-[id number] contact. Thank you for allowing me to participate in this patient's care. Further recommendations will depend on patient's clinical course. Please do not hesitate to contact me if you have any questions or concerns. This medical document was created using electronic medical record system with [employer] computerized dictation system. Although this document has been carefully reviewed, there may still be some phonetic and typographical errors. These areas are purely typographical due to the imperfection of the software programs, and do not reflect any compromise in the patient's medical care. Dietary Evaluation Review Comments: 1. Monitor PO intake to meet 75% of her needs 2. Refer to PCP for medication review 3. minimize her medication list Expected Outcomes/Goals: take less medication if possible, gradual wt loss Plan discussed with: Patient, Other (nurse) AJAY SMALLWOOD MD May 14, 2025 07:35
[2025-05-14 08:56] LABS: Hematocrit 31.4 % (36.0-46.0); Hemoglobin 10.4 g/dL (12.2-16.2); Mean Corpuscular Hemoglobin 31.1 pg (28.0-32.0); Mean Corpuscular Volume 93.7 fL (80.0-100.0); Nucleated Red Blood Cells % 0.1 %
[2025-05-14] MEDS ORDERED: APIXABAN 2.5 MG TAB PO SCH (10:00)
[2025-05-14] MEDS: APIXABAN 2.5 MG TAB PO SCH (12:45)
--- NOTE | 2025-05-14 13:29 | DVHPN2 ---
Progress Note Date Seen: May 14, 2025 Medical Necessity Reason Pt with a Central, PICC or Fol: No Subjective Patient reports: No new complaints Review of Systems: HEENT:Normal, CVS:Normal, RESPIRATORY:Normal, GI:Normal, :Normal, MSK:Normal, NEURO:Normal Objective vital signs Vital Sign Date Time Temp Pulse Resp B/P (MAP) Pulse Ox O2 Delivery O2 Flow Rate FiO2 05/14/25 13:00 98.1 71 19 115/62 (79) 100 98.1 05/14/25 08:00 Nasal Cannula* 3 32 Total Intake and Output 05/13/25 05/13/25 05/14/25 15:00 23:00 07:00 Intake Total 600 ml Balance 600 ml medications Current Medications Medications Dose Ordered Sig/Romaine Route Start Time Stop Time Status Last Admin Dose Admin Acetaminophen 325 mg Q4HP PRN PO 05/11/25 21:15 Morphine Sulfate 2 mg Q4HPRN PRN IV 05/11/25 21:15 Morphine Sulfate 2 mg Q30M PRN IV 05/11/25 21:15 Nitroglycerin 0.4 mg Q5MINP PRN SL 05/11/25 21:15 Amiodarone HCl 200 mg HS PO 05/12/25 22:00 05/13/25 22:01 200 MG Clopidogrel Bisulfate 75 mg DAILY PO 05/12/25 10:00 Cancel Dicyclomine HCl 10 mg Q6HP PO 05/12/25 00:00 05/14/25 12:31 10 MG Docusate Sodium 100 mg BIDPRN PRN PO 05/11/25 22:15 Isosorbide Mononitrate 60 mg DAILY PO 05/12/25 10:00 05/14/25 09:39 60 MG Montelukast Sodium 10 mg DAILY PO 05/12/25 10:00 05/14/25 12:31 10 MG Pantoprazole Sodium 40 mg DAILY PO 05/12/25 10:00 05/14/25 09:40 40 MG Potassium Chloride 20 meq DAILY PO 05/12/25 10:00 05/14/25 09:40 20 MEQ Ranolazine 500 mg BID PO 05/12/25 10:00 05/14/25 12:30 500 MG Sucralfate 1 gm BID PO 05/12/25 10:00 05/14/25 09:38 1 GM Tramadol HCl 50 mg BID PRN PO 05/11/25 22:15 Atorvastatin Calcium 40 mg HS PO 05/12/25 22:00 05/13/25 22:00 40 MG Carvedilol 25 mg BID PO 05/12/25 10:00 05/14/25 12:45 25 MG Ferrous Sulfate 325 mg BID PO 05/12/25 10:00 05/14/25 09:38 325 MG Magnesium Oxide 400 mg DAILY PO 05/12/25 10:00 05/14/25 12:31 400 MG Zinc Sulfate 220 mg DAILY PO 05/12/25 10:00 05/14/25 12:31 220 MG Saccharomyces Boulardii 250 mg DAILY PO 05/13/25 10:00 05/14/25 09:40 250 MG Ondansetron HCl 4 mg Q6HPRN PRN IV 05/12/25 13:45 05/14/25 07:51 4 MG Clopidogrel Bisulfate 75 mg DAILY PO 05/12/25 20:00 UNV Furosemide 40 mg QAM IV 05/14/25 07:00 05/14/25 07:18 40 MG Apixaban 2.5 mg BID PO 05/14/25 10:00 UNV Apixaban 2.5 mg BID PO 05/14/25 10:00 05/14/25 12:45 2.5 MG Examination: GENERAL:Normal, HEENT:Normal, NECK:Normal, LUNGS:Normal, CVS:Normal, ABDOMEN:Normal, MSK:Normal, SKIN:Normal, NEURO:Normal, :Normal laboratory and microbiology Laboratory Tests 05/14/25 08:30 05/13/25 06:03 Test 05/13/25 06:03 Range/Units Serum Glucose 94 74-106 mg/dL Problem List/Assessment/Plan Problem List/Assessment/Plan #1 acute on chronic diastolic heart failure: lasix iv #2 cad s/p cabg/pci #3 copd with chronic resp failure #4 pulm fibrosis #5 paroxysmal a flutter: cont meds #6 htn #7 s/p pacer #8 h/o cva #9 pulm htn #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 Monitor PO intake to meet 75% of her needs 2. Refer to PCP for medication review 3. minimize her medication list Expected Outcomes/Goals: take less medication if possible, gradual wt loss Date of Service: May 14, 2025 Billing Provider: CALE FAGAN MD Common Visit Codes: [id number] INP/OBS CARE(HIGH) CALE FAGAN MD May 14, 2025 13:29
--- NOTE | 2025-05-14 13:58 | DVHPN2 ---
Subjective Patient having nausea and vomiting again Denies hematemesis Patient is status post colonoscopy many years ago Changes from previous H/P or p: No Changes Objective Vitals Vital Signs Date Time Temp Pulse Resp B/P (MAP) Pulse Ox O2 Delivery O2 Flow Rate FiO2 05/14/25 13:00 98.1 71 19 115/62 (79) 100 98.1 05/14/25 08:00 Nasal Cannula* 3 32 Intake/Output Intake and Output 05/14/25 07:00 Intake Total 600 ml Balance 600 ml Intake Oral 600 ml # Voids 8 # Bowel Movements 3 Exam General: NAD, AAOX3 Chest: lung barton clear to auscultation Heart: RRR, no murmur Abdomen: non-distended, no tenderness to palpation, +BS Medications Current Medications Medications Dose Ordered Sig/Romaine Route Start Time Stop Time Status Last Admin Dose Admin Acetaminophen 325 mg Q4HP PRN PO 05/11/25 21:15 Morphine Sulfate 2 mg Q4HPRN PRN IV 05/11/25 21:15 Morphine Sulfate 2 mg Q30M PRN IV 05/11/25 21:15 Nitroglycerin 0.4 mg Q5MINP PRN SL 05/11/25 21:15 Amiodarone HCl 200 mg HS PO 05/12/25 22:00 05/13/25 22:01 200 MG Clopidogrel Bisulfate 75 mg DAILY PO 05/12/25 10:00 Cancel Dicyclomine HCl 10 mg Q6HP PO 05/12/25 00:00 05/14/25 12:31 10 MG Docusate Sodium 100 mg BIDPRN PRN PO 05/11/25 22:15 Isosorbide Mononitrate 60 mg DAILY PO 05/12/25 10:00 05/14/25 09:39 60 MG Montelukast Sodium 10 mg DAILY PO 05/12/25 10:00 05/14/25 12:31 10 MG Potassium Chloride 20 meq DAILY PO 05/12/25 10:00 05/14/25 09:40 20 MEQ Ranolazine 500 mg BID PO 05/12/25 10:00 05/14/25 12:30 500 MG Sucralfate 1 gm BID PO 05/12/25 10:00 05/14/25 09:38 1 GM Tramadol HCl 50 mg BID PRN PO 05/11/25 22:15 Atorvastatin Calcium 40 mg HS PO 05/12/25 22:00 05/13/25 22:00 40 MG Carvedilol 25 mg BID PO 05/12/25 10:00 05/14/25 12:45 25 MG Magnesium Oxide 400 mg DAILY PO 05/12/25 10:00 05/14/25 12:31 400 MG Saccharomyces Boulardii 250 mg DAILY PO 05/13/25 10:00 05/14/25 09:40 250 MG Ondansetron HCl 4 mg Q6HPRN PRN IV 05/12/25 13:45 05/14/25 07:51 4 MG Clopidogrel Bisulfate 75 mg DAILY PO 05/12/25 20:00 UNV Furosemide 40 mg QAM IV 05/14/25 07:00 05/14/25 07:18 40 MG Apixaban 2.5 mg BID PO 05/14/25 10:00 UNV Enoxaparin Sodium 70 mg Q12HR SC 05/14/25 22:00 Pantoprazole Sodium 40 mg DAILY IV 05/15/25 10:00 Laboratory Results Laboratory Tests 05/13/25 06:03 05/14/25 08:30 Urinalysis Test 05/12/25 15:30 Urine Color Yellow (Yellow) Urine Clarity Clear (Clear) Urine pH 5.5 (5.0-9.0) Urine Specific [place] 1.028 (1.001-1.035) Urine Protein Negative (Negative) Urine Ketones Trace (Negative) Urine Blood Negative /uL (Negative) Urine Nitrite Negative (Negative) Urine Bilirubin Negative (Negative) Urine Urobilinogen Normal mg/dL (Negative) Urine Leukocyte Esterase Negative /uL (Negative) Urine RBC 1 /hpf (0 - 4) Urine Microscopic WBC 1 /HPF (0-5) Urine Squamous Epithelial Cells Few /hpf (<5) Urine Bacteria None seen /hpf (None Seen) Urine Mucus Few (None Seen) Urine Glucose Normal mg/dL (Normal) Assessment/Plan Assessment/Plan Nausea and vomiting Gastritis Duodenitis Hiatal hernia +SOB Plan: Discussed with Dr. Junaid Lema and Protonix Possible EGD to be planned if symptoms of nausea and vomiting persist Hold blood thinners Patient at this time is refusing to have a colonoscopy done but we will consent for an EGD Plan discussed with: Patient, Other (RN) My Orders Orders - EDEN SLOAN Procedure Category Date Status Time Full Liq Diet DIET 05/13/25 Transmitted Dinner Date of Service: May 14, 2025 Billing Provider: EDEN SLOAN Common Visit Codes: [id number] INP/OBS CARE(HIGH) EDEN SLOAN May 14, 2025 13:58
[2025-05-14] MEDS: ENOXAPARIN SOD 80 MG/0.8ML SYRINGE SC SCH (21:52)
[2025-05-15] VITALS (9 sets, daily range): BP systolic 99–135; BP diastolic 57–73; PULSE 67–73; RESP 16–18; TEMP 97.3–98.1; O2SAT 98–100
[2025-05-15 07:22] LABS: Chloride 99 mmol/L (98-107); Potassium 4.0 mmol/L (3.5-5.1); Sodium 138 mmol/L (136-145)
[2025-05-15 07:23] LABS: Anion Gap 10 (5-15); Calcium 8.9 mg/dL (8.7-10.4); Carbon Dioxide 29 mmol/L (20-31)
[2025-05-15 07:28] LABS: BUN/Creatinine Ratio 12.9 (10.0-20.0); Glucose 87 mg/dL (74-106)
[2025-05-15 07:29] LABS: Blood Urea Nitrogen 9 mg/dL (9-23)
[2025-05-15 07:31] LABS: Hematocrit 26.7 % (36.0-46.0); Hemoglobin 8.9 g/dL (12.2-16.2); Mean Corpuscular Hemoglobin 31.6 pg (28.0-32.0); Mean Corpuscular Volume 94.4 fL (80.0-100.0); Nucleated Red Blood Cells % 0.2 %
--- NOTE | 2025-05-15 07:32 | DVHPN2 ---
Progress Note - Dictate Date Seen: May 15, 2025 Medical Necessity Reason Pt with a Central, PICC or Fol: No vital signs Vital Sign Date Time Temp Pulse Resp B/P (MAP) Pulse Ox O2 Delivery O2 Flow Rate FiO2 05/15/25 06:26 135/64 05/15/25 05:00 97.6 67 18 99 97.6 05/14/25 20:00 Nasal Cannula* 3 32 Total Intake and Output 05/14/25 05/14/25 05/15/25 15:00 23:00 07:00 Intake Total 710 ml 350 ml Balance 710 ml 350 ml medications Current Medications Medications Dose Ordered Sig/Romaine Route Start Time Stop Time Status Last Admin Dose Admin Acetaminophen 325 mg Q4HP PRN PO 05/11/25 21:15 Morphine Sulfate 2 mg Q4HPRN PRN IV 05/11/25 21:15 Morphine Sulfate 2 mg Q30M PRN IV 05/11/25 21:15 Nitroglycerin 0.4 mg Q5MINP PRN SL 05/11/25 21:15 Amiodarone HCl 200 mg HS PO 05/12/25 22:00 05/14/25 21:52 200 MG Clopidogrel Bisulfate 75 mg DAILY PO 05/12/25 10:00 Cancel Dicyclomine HCl 10 mg Q6HP PO 05/12/25 00:00 05/15/25 06:26 10 MG Docusate Sodium 100 mg BIDPRN PRN PO 05/11/25 22:15 Isosorbide Mononitrate 60 mg DAILY PO 05/12/25 10:00 05/14/25 09:39 60 MG Montelukast Sodium 10 mg DAILY PO 05/12/25 10:00 05/14/25 12:31 10 MG Potassium Chloride 20 meq DAILY PO 05/12/25 10:00 05/14/25 09:40 20 MEQ Ranolazine 500 mg BID PO 05/12/25 10:00 05/14/25 21:52 500 MG Sucralfate 1 gm BID PO 05/12/25 10:00 05/14/25 21:52 1 GM Tramadol HCl 50 mg BID PRN PO 05/11/25 22:15 Atorvastatin Calcium 40 mg HS PO 05/12/25 22:00 05/14/25 21:51 40 MG Carvedilol 25 mg BID PO 05/12/25 10:00 10/8/25 21:51 25 MG Magnesium Oxide 400 mg DAILY PO 05/12/25 10:00 05/14/25 12:31 400 MG Saccharomyces Boulardii 250 mg DAILY PO 05/13/25 10:00 05/14/25 09:40 250 MG Ondansetron HCl 4 mg Q6HPRN PRN IV 05/12/25 13:45 05/15/25 06:26 4 MG Clopidogrel Bisulfate 75 mg DAILY PO 05/12/25 20:00 UNV Furosemide 40 mg QAM IV 05/14/25 07:00 05/15/25 06:26 40 MG Apixaban 2.5 mg BID PO 05/14/25 10:00 UNV Enoxaparin Sodium 70 mg Q12HR SC 05/14/25 22:00 05/14/25 21:52 70 MG Pantoprazole Sodium 40 mg DAILY IV 05/15/25 10:00 laboratory and microbiology Laboratory Tests 05/15/25 05:58 Test 05/15/25 05:58 Range/Units Serum Glucose 87 74-106 mg/dL Assessment/Plan 75-year-old female presented with few days of repeated nausea and vomiting. She mentions that after many episodes of nausea and vomiting she started to feel bilateral anterior chest tenderness. Cardiology is involved for cardiac aspects of care. Patient is known to our practice from outside and before. Does have baseline history of coronary artery disease and is status post PCI/CABG. Mentions that she has been taking her outside medications (including Eliquis/Plavix). Patient had right and left heart catheterization and BRAD in January 2025. Since admission, serial troponin has been negative. It is of note that the patient has had repeated GI bleedings and has had PRBC transfusion for it. Lying comfortably flat in bed. No JVD. pink mucosa. Lungs reveal scattered rhonchi. Cardiac: Regular, no thrills/murmur. Abdomen is soft. No hepatomegaly. Bowel sounds positive. Lower extremities do not reveal edema. Dorsalis pedis is 2+ bilateral Past medical history includes diabetes mellitus, hyperlipidemia, hypertension, diastolic heart failure, peripheral artery disease, GERD, anxiety, anemia, asthma, coronary artery disease, status post CABG and PCI, status post pacemaker implantation (Medtronic), status post old CVA, paroxysmal atrial flutter (on Eliquis), COPD on home oxygen, fibromyalgia, pulmonary hypertension, history of poor functional status, history of GI bleeding, pulmonary fibrosis, hiatal hernia, ex-smoker, status post gold cholecystectomy/hysterectomy. Is known to have closed grafts for CABG. Has had high risk PCI/left main in [facility] (few years back). Does have history of abnormal nuclear stress test and the plan has been to manage her medically. Has been kept on Eliquis and Plavix as outpatient. She is ex-smoker. Left heart catheterization revealed multivessel coronary artery disease. SVG nourishing 1 of the ramus intermedius was diseased but the decision was to manage it medically (ramus intermedius had good flow from patent left main: left main was stented before). Has been offered to go for Watchman device as outpatient. It is of note that the patient have diastolic heart failure and also pulmonary fibrosis. She does have pulmonary hypertension. Components of both type 2 and type 3 pulmonary hypertension can be present. Echocardiogram of January 09, 2023 revealed LVEF of 55 to 60%, mild concentric left ventricular hypertrophy, no wall motion abnormality, mild biatrial enlargement, pacing wire in right-sided chambers, mild to moderate aortic insufficiency, mild mitral regurgitation, mild to moderate tricuspid regurgitation and right ventricular systolic pressure of 35 mmHg Echocardiogram of March 07, 2023 had revealed ejection fraction of 55 to 60%, mild concentric left ventricular hypertrophy, mild AI/MR/PI, mild biatrial enlargement, pacemaker wire in the right-sided chambers and right ventricular systolic pressure of 34 mmHg Echocardiogram of September 06, 2023 revealed ejection fraction of 55% and pacemaker in right-sided chambers Echocardiogram of December 26, 2023 had reported ejection fraction of 55-60%, no wall motion abnormality, [id number] aortic insufficiency, mild MR, moderate TR and right ventricular systolic pressure 42 mm Hg Echocardiogram of August 30, 2024 reported ejection fraction of 55-60%, no wall motion abnormality, mild biatrial enlargement, pacemaker in the right-sided chambers, mild AI/MR and moderate tricuspid regurgitation. Right ventricular systolic pressure was assessed at 41 mm Hg. Echocardiogram of December 20, 2024 (performed in the office) revealed ejection fraction of 60-65%, mild concentric left ventricular hypertrophy, pseudo normal LV filling, mild biatrial enlargement, mild right ventricular enlargement with good systolic function, moderate aortic insufficiency, aortic sclerosis with no stenosis, mild mitral annular calcification, [id number] MR/TR and right ventricular systolic pressure of 53 mm Hg. Echocardiogram of January 10, 2025 revealed mild concentric left ventricular hypertrophy, ejection fraction of 60-65%, pseudo normal LV filling, [id number] aortic insufficiency, mild mitral regurgitation, moderate tricuspid regurgitation and right ventricular systolic pressure of 67 mm Hg. BRAD of January 13, 2025 revealed no significant valvular disease Right and left heart catheterization of January 13, 2025 revealed multivessel coronary artery disease LVEF of around 50%; Apical aneurysm; Increased LVEDP (19 mm Hg); No pulmonary hypertension; Patent left main stent into LCX (dominant vessel) with no significant disease; Proximal LAD was [employer] with minor parallel collaterals. LAD was a diffusely diseased vessel with areas of focal aneurysm; Presence of 2 ramus intermedius; One of the ramus intermedius is with mild disease; Second ramus: Relatively small vessel with mild disease. There was SVG 'also' nourishing it. SVG itself had ostial and middle SVG section disease (decision was made to manage it medically); DANIELLE was atretic but patent; There was 2 other SVG's which were [employer] at ostium and suggestion was for medical therapy Hemoglobin: 10.8 - 10.2 - 10.3 - 10.4 - today's pending White blood cell: 6.3 - 7.1 - 8.1 - 7.9 - today's pending Creatinine: 0.74 - 0.60 - 0.72 - today's pending Potassium: 4.5 - 4.8 - 3.8 - today's pending Troponin (high sensitive): 3 - 4 BNP: 116.39 TSH: 2.82 D-Dimer: 0.27 (WNL) UDS: non-revealing Stool OB: positive Chest x-ray revealed: IMPRESSION: Diffuse interstitial prominence which may be from fibrotic changes with superimposed pulmonary edema/ atypical pneumonia. Obscuration of the left hemidiaphragm with indistinctness of the right hemidiaphragm which may be from pleural effusion with associated atelectasis. EKG revealed A paced with nonspecific ST-T changes. Another EKG revealed bundle branch block. Telemetry reveals sinus rhythm and occasions NSVT Qordobatronic interrogation: Battery remaining longevity: 11.4 years; AAIR-DDDR: 70/130; Program sensitivity: A 0.3/RV 0.45 mV; A pace: 66%; V pace: <0.1%; No episodes; Normal functioning Medtronic pacemaker Echocardiogram revealed: Technically limited study secondary to poor acoustic window. Left ventricle: Left ventricle was normal-sized. LVEF was around 55%. Even though no gross wall motion abnormality was seen, its presence can not be ruled out on the basis of this study. Right ventricle was normal-sized with reduced systolic function. Both atria were mildly dilated. Pacing wire was seen in right-sided chambers. Aortic valve was not well visualized. Skym-ma-nffavvzq aortic insufficiency was seen. Aortic sclerosis with no stenosis was identified. Mild mitral regurgitation was seen. Moderate tricuspid regurgitation was seen. Pulmonary valve was not visualized. Right ventricular systolic pressure was assessed at 37 mm Hg. There was no pericardial effusion. Patient is a 75-year-old female who presented with repeated nausea and vomiting which was followed by anterior chest discomfort/tenderness. Chest pain has been pleuritic. Serial high sensitive troponin has been negative. Acute coronary syndrome is not considered. It is of note that the patient had right and left heart catheterization in January 2025 (suggestion was for medical management). Is referred for elective/outpatient Watchman which has not happened before. He is kept on Eliquis/Plavix as outpatient. The dose of Eliquis and has been 2.5 b.i.d. (has had repeated GI bleedings secondary to hiatal hernia). Chest x-ray revealed congestion of the lungs versus pneumonia. It is of note that the patient does have baseline history of diastolic heart failure and component of acute on chronic diastolic heart failure could be present. Was evaluated by GI. Stool OB is positive. H/H is stable. Chest discomfort, atypical Pleuritic chest pain Nausea and vomiting, repeated Acute on chronic diastolic heart failure Coronary artery disease, status post CABG/PCI Paroxysmal atrial flutter (on Eliquis as outpatient) COPD/Emphysema Pulmonary fibrosis Pulmonary hypertension, history of Chronic diastolic heart failure Status post pacemaker Hypokalemia Paroxysmal atrial flutter with RVR Hiatal Hernia Sepsis Diarrhea GI bleeding, significant, s/p PRBC transfusion Cardiac suggestions for management: Manage on telemetry Gentle diuresis Follow-up electrolytes and kidney function and correct abnormalities, keep potassium above 4 magnesium above 2 Oral Amiodarone: 200 mg HS On Lovenox (therapy dose) and Plavix. Stop Lovenox and restart Eliquis: 2.5 mg PO BID Continue Plavix at 75 mg daily Optimized medical therapy adjunct faculty for medical terminology continuation of full anticoagulation for history of paroxysmal atrial flutter is suggested (for now, on Lovenox, we will later change back to Eliquis) adjunct faculty for medical terminology continuation of Plavix (CAD h/o Left Main stenting) is suggested. Antianginal therapy Continuation of Statin/Ranexa/Imdur/Coreg is suggested Was evaluated by GI Cardiac wilcox, stable and can be followed as outpatient Further evaluation and management depends on the above and clinical course A total of 55 minutes was spent reviewing the patient record, examining the patient, making a diagnostic and therapeutic plan, discussing this plan with medical personnel, following up on diagnostic studies and following the patient for clinical stability excluding any and all procedures. At least 50% of this time was spent in direct, [id number] contact. Thank you for allowing me to participate in this patient's care. Further recommendations will depend on patient's clinical course. Please do not hesitate to contact me if you have any questions or concerns. This medical document was created using electronic medical record system with [employer] computerized dictation system. Although this document has been carefully reviewed, there may still be some phonetic and typographical errors. These areas are purely typographical due to the imperfection of the software programs, and do not reflect any compromise in the patient's medical care. Dietary Evaluation Review Comments: 1. Monitor PO intake to meet 75% of her needs 2. Refer to PCP for medication review 3. minimize her medication list Expected Outcomes/Goals: take less medication if possible, gradual wt loss Plan discussed with: Patient, Other (nurse) AJAY SMALLWOOD MD May 15, 2025 07:32
[2025-05-15] MEDS: PANTOPRAZOLE 40 MG/10 ML VIAL INJ IV SCH (10:01)
--- NOTE | 2025-05-15 10:44 | DVHPN2 ---
Progress Note Date Seen: May 15, 2025 Medical Necessity Reason Pt with a Central, PICC or Fol: No Subjective Patient reports: No new complaints Review of Systems: HEENT:Normal, CVS:Normal, RESPIRATORY:Normal, GI:Normal, :Normal, MSK:Normal, NEURO:Normal Objective vital signs Vital Sign Date Time Temp Pulse Resp B/P (MAP) Pulse Ox O2 Delivery O2 Flow Rate FiO2 05/15/25 10:00 108/60 05/15/25 09:59 72 05/15/25 05:00 97.6 18 99 97.6 05/14/25 20:00 Nasal Cannula* 3 32 Total Intake and Output 05/14/25 05/14/25 05/15/25 15:00 23:00 07:00 Intake Total 710 ml 350 ml Balance 710 ml 350 ml medications Current Medications Medications Dose Ordered Sig/Romaine Route Start Time Stop Time Status Last Admin Dose Admin Acetaminophen 325 mg Q4HP PRN PO 05/11/25 21:15 Morphine Sulfate 2 mg Q4HPRN PRN IV 05/11/25 21:15 Morphine Sulfate 2 mg Q30M PRN IV 05/11/25 21:15 Nitroglycerin 0.4 mg Q5MINP PRN SL 05/11/25 21:15 Amiodarone HCl 200 mg HS PO 05/12/25 22:00 05/14/25 21:52 200 MG Clopidogrel Bisulfate 75 mg DAILY PO 05/12/25 10:00 Cancel Dicyclomine HCl 10 mg Q6HP PO 05/12/25 00:00 05/15/25 06:26 10 MG Docusate Sodium 100 mg BIDPRN PRN PO 05/11/25 22:15 Isosorbide Mononitrate 60 mg DAILY PO 05/12/25 10:00 05/15/25 10:00 60 MG Montelukast Sodium 10 mg DAILY PO 05/12/25 10:00 05/15/25 09:57 10 MG Potassium Chloride 20 meq DAILY PO 05/12/25 10:00 05/15/25 09:59 20 MEQ Ranolazine 500 mg BID PO 05/12/25 10:00 05/15/25 09:59 500 MG Sucralfate 1 gm BID PO 05/12/25 10:00 05/15/25 09:57 1 GM Tramadol HCl 50 mg BID PRN PO 05/11/25 22:15 Atorvastatin Calcium 40 mg HS PO 05/12/25 22:00 05/14/25 21:51 40 MG Carvedilol 25 mg BID PO 05/12/25 10:00 05/15/25 09:59 25 MG Magnesium Oxide 400 mg DAILY PO 05/12/25 10:00 05/14/25 12:31 400 MG Saccharomyces Boulardii 250 mg DAILY PO 05/13/25 10:00 05/15/25 10:01 250 MG Ondansetron HCl 4 mg Q6HPRN PRN IV 05/12/25 13:45 05/15/25 06:26 4 MG Clopidogrel Bisulfate 75 mg DAILY PO 05/12/25 20:00 UNV Furosemide 40 mg QAM IV 05/14/25 07:00 05/15/25 06:26 40 MG Apixaban 2.5 mg BID PO 05/14/25 10:00 UNV Enoxaparin Sodium 70 mg Q12HR SC 05/14/25 22:00 05/14/25 21:52 70 MG Pantoprazole Sodium 40 mg DAILY IV 05/15/25 10:00 05/15/25 10:01 40 MG Examination: GENERAL:Normal, HEENT:Normal, NECK:Normal, LUNGS:Normal, CVS:Normal, ABDOMEN:Normal, MSK:Normal, SKIN:Normal, NEURO:Normal, :Normal laboratory and microbiology Laboratory Tests 05/15/25 05:58 Test 05/15/25 05:58 Range/Units Serum Glucose 87 74-106 mg/dL Problem List/Assessment/Plan Problem List/Assessment/Plan #1 acute on chronic diastolic heart failure: lasix iv #2 cad s/p cabg/pci #3 copd with chronic resp failure #4 pulm fibrosis #5 paroxysmal a flutter: cont meds #6 htn #7 s/p pacer #8 h/o cva #9 pulm htn #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 Monitor PO intake to meet 75% of her needs 2. Refer to PCP for medication review 3. minimize her medication list Expected Outcomes/Goals: take less medication if possible, gradual wt loss Date of Service: May 15, 2025 Billing Provider: CALE FAGAN MD Common Visit Codes: [id number] INP/OBS CARE(HIGH) CALE FAGAN MD May 15, 2025 10:44
[2025-05-15] MEDS ORDERED: MORPHINE SULFATE 4 MG/ML SYR/VIAL IV PRN (13:00)
--- NOTE | 2025-05-15 14:21 | DVHPN2 ---
Subjective Patient admits to improved nausea and vomiting. No hematemesis Last bowel movement yesterday Patient is status post colonoscopy which was incomplete due to possible sigmoid stricture Patient is status post barium enema many years ago unsure about results Changes from previous H/P or p: No Changes Objective Vitals Vital Signs Date Time Temp Pulse Resp B/P (MAP) Pulse Ox O2 Delivery O2 Flow Rate FiO2 05/15/25 13:01 97.5 70 17 99/57 (71) 99 97.5 05/15/25 07:30 Nasal Cannula* 3 32 Intake/Output Intake and Output 05/15/25 07:00 Intake Total 1060 ml Balance 1060 ml Intake Oral 1060 ml # Voids 9 # Bowel Movements 1 Exam General: NAD, AAOX3 Chest: lung barton clear to auscultation Heart: RRR, no murmur Abdomen: non-distended, no tenderness to palpation, +BS Medications Current Medications Medications Dose Ordered Sig/Romaine Route Start Time Stop Time Status Last Admin Dose Admin Acetaminophen 325 mg Q4HP PRN PO 05/11/25 21:15 Morphine Sulfate 2 mg Q4HPRN PRN IV 05/11/25 21:15 Cancel Morphine Sulfate 2 mg Q30M PRN IV 05/11/25 21:15 Nitroglycerin 0.4 mg Q5MINP PRN SL 05/11/25 21:15 Amiodarone HCl 200 mg HS PO 05/12/25 22:00 05/14/25 21:52 200 MG Clopidogrel Bisulfate 75 mg DAILY PO 05/12/25 10:00 Cancel Dicyclomine HCl 10 mg Q6HP PO 05/12/25 00:00 05/15/25 11:49 10 MG Docusate Sodium 100 mg BIDPRN PRN PO 05/11/25 22:15 Isosorbide Mononitrate 60 mg DAILY PO 05/12/25 10:00 05/15/25 10:00 60 MG Montelukast Sodium 10 mg DAILY PO 05/12/25 10:00 05/15/25 09:57 10 MG Potassium Chloride 20 meq DAILY PO 05/12/25 10:00 05/15/25 09:59 20 MEQ Ranolazine 500 mg BID PO 05/12/25 10:00 05/15/25 09:59 500 MG Sucralfate 1 gm BID PO 05/12/25 10:00 10/9/25 09:57 1 GM Tramadol HCl 50 mg BID PRN PO 05/11/25 22:15 05/15/25 11:49 50 MG Atorvastatin Calcium 40 mg HS PO 05/12/25 22:00 05/14/25 21:51 40 MG Carvedilol 25 mg BID PO 05/12/25 10:00 05/15/25 09:59 25 MG Magnesium Oxide 400 mg DAILY PO 05/12/25 10:00 05/15/25 10:00 400 MG Saccharomyces Boulardii 250 mg DAILY PO 05/13/25 10:00 05/15/25 10:01 250 MG Ondansetron HCl 4 mg Q6HPRN PRN IV 05/12/25 13:45 05/15/25 06:26 4 MG Clopidogrel Bisulfate 75 mg DAILY PO 05/12/25 20:00 UNV Apixaban 2.5 mg BID PO 05/14/25 10:00 UNV Enoxaparin Sodium 70 mg Q12HR SC 05/14/25 22:00 05/14/25 21:52 70 MG Pantoprazole Sodium 40 mg DAILY IV 05/15/25 10:00 05/15/25 10:01 40 MG Furosemide 40 mg DAILY PO 05/16/25 10:00 Morphine Sulfate 2 mg Q4HPRN PRN IV 05/15/25 13:00 Laboratory Results Laboratory Tests 05/15/25 05:58 Chemistry Test 05/15/25 05:58 Calcium Level 8.9 mg/dL (8.7-10.4) Urinalysis Test 05/12/25 15:30 Urine Color Yellow (Yellow) Urine Clarity Clear (Clear) Urine pH 5.5 (5.0-9.0) Urine Specific [place] 1.028 (1.001-1.035) Urine Protein Negative (Negative) Urine Ketones Trace (Negative) Urine Blood Negative /uL (Negative) Urine Nitrite Negative (Negative) Urine Bilirubin Negative (Negative) Urine Urobilinogen Normal mg/dL (Negative) Urine Leukocyte Esterase Negative /uL (Negative) Urine RBC 1 /hpf (0 - 4) Urine Microscopic WBC 1 /HPF (0-5) Urine Squamous Epithelial Cells Few /hpf (<5) Urine Bacteria None seen /hpf (None Seen) Urine Mucus Few (None Seen) Urine Glucose Normal mg/dL (Normal) Assessment/Plan Assessment/Plan Nausea and vomiting Gastritis Duodenitis Hiatal hernia +SOB Plan: Discussed with Dr. Junaid Lema and Nasrin Scheduled for EGD tomorrow 05/16/2025, discussed risks and benefits extensively of procedure and sedation, patient understands and agrees Hold blood thinners Patient at this time is refusing to have a colonoscopy done but we will consent for an EGD Plan discussed with: Patient, Other (Dr. Wei and RN) My Orders Orders - EDEN SLOAN Procedure Category Date Status Time Communication Order ORDERS 05/15/25 Transmitted 13:07 Date of Service: May 15, 2025 Billing Provider: EDEN SLOAN Common Visit Codes: [id number] INP/OBS CARE(HIGH) EDEN SLOAN May 15, 2025 14:21
[2025-05-16] VITALS (11 sets, daily range): BP systolic 111–119; BP diastolic 51–70; PULSE 60–78; RESP 15–18; TEMP 96.4–98.1; O2SAT 99–100
--- NOTE | 2025-05-16 07:19 | DVHPN2 ---
Progress Note - Dictate Date Seen: May 16, 2025 Medical Necessity Reason Pt with a Central, PICC or Fol: No vital signs Vital Sign Date Time Temp Pulse Resp B/P (MAP) Pulse Ox O2 Delivery O2 Flow Rate FiO2 05/16/25 05:00 97.6 66 17 119/66 (83) 100 97.6 05/15/25 20:00 Nasal Cannula* 3 32 Total Intake and Output 05/15/25 05/15/25 05/16/25 15:00 23:00 07:00 Intake Total 700 ml 600 ml Balance 700 ml 600 ml medications Current Medications Medications Dose Ordered Sig/Romaine Route Start Time Stop Time Status Last Admin Dose Admin Acetaminophen 325 mg Q4HP PRN PO 05/11/25 21:15 Morphine Sulfate 2 mg Q4HPRN PRN IV 05/11/25 21:15 Cancel Morphine Sulfate 2 mg Q30M PRN IV 05/11/25 21:15 Nitroglycerin 0.4 mg Q5MINP PRN SL 05/11/25 21:15 Amiodarone HCl 200 mg HS PO 05/12/25 22:00 05/15/25 21:17 200 MG Clopidogrel Bisulfate 75 mg DAILY PO 05/12/25 10:00 Cancel Dicyclomine HCl 10 mg Q6HP PO 05/12/25 00:00 05/15/25 18:23 10 MG Docusate Sodium 100 mg BIDPRN PRN PO 05/11/25 22:15 Isosorbide Mononitrate 60 mg DAILY PO 05/12/25 10:00 05/15/25 10:00 60 MG Montelukast Sodium 10 mg DAILY PO 05/12/25 10:00 05/15/25 09:57 10 MG Potassium Chloride 20 meq DAILY PO 05/12/25 10:00 05/15/25 09:59 20 MEQ Ranolazine 500 mg BID PO 05/12/25 10:00 05/15/25 21:17 500 MG Sucralfate 1 gm BID PO 05/12/25 10:00 05/15/25 21:16 1 GM Tramadol HCl 50 mg BID PRN PO 05/11/25 22:15 05/15/25 18:23 50 MG Atorvastatin Calcium 40 mg HS PO 05/12/25 22:00 05/15/25 21:17 40 MG Carvedilol 25 mg BID PO 05/12/25 10:00 05/15/25 21:16 25 MG Magnesium Oxide 400 mg DAILY PO 05/12/25 10:00 05/15/25 10:00 400 MG Saccharomyces Boulardii 250 mg DAILY PO 05/13/25 10:00 05/15/25 10:01 250 MG Ondansetron HCl 4 mg Q6HPRN PRN IV 05/12/25 13:45 05/15/25 18:22 4 MG Clopidogrel Bisulfate 75 mg DAILY PO 05/12/25 20:00 UNV Apixaban 2.5 mg BID PO 05/14/25 10:00 UNV Enoxaparin Sodium 70 mg Q12HR SC 05/14/25 22:00 05/14/25 21:52 70 MG Pantoprazole Sodium 40 mg DAILY IV 05/15/25 10:00 05/15/25 10:01 40 MG Furosemide 40 mg DAILY PO 05/16/25 10:00 Morphine Sulfate 2 mg Q4HPRN PRN IV 05/15/25 13:00 laboratory and microbiology Laboratory Tests 05/15/25 05:58 Test 05/15/25 05:58 Range/Units Serum Glucose 87 74-106 mg/dL Assessment/Plan 75-year-old female presented with few days of repeated nausea and vomiting. She mentions that after many episodes of nausea and vomiting she started to feel bilateral anterior chest tenderness. Cardiology is involved for cardiac aspects of care. Patient is known to our practice from outside and before. Does have baseline history of coronary artery disease and is status post PCI/CABG. Mentions that she has been taking her outside medications (including Eliquis/Plavix). Patient had right and left heart catheterization and BRAD in January 2025. Since admission, serial troponin has been negative. It is of note that the patient has had repeated GI bleedings and has had PRBC transfusion for it. Lying comfortably flat in bed. No JVD. pink mucosa. Lungs reveal scattered rhonchi. Cardiac: Regular, no thrills/murmur. Abdomen is soft. No hepatomegaly. Bowel sounds positive. Lower extremities do not reveal edema. Dorsalis pedis is 2+ bilateral Past medical history includes diabetes mellitus, hyperlipidemia, hypertension, diastolic heart failure, peripheral artery disease, GERD, anxiety, anemia, asthma, coronary artery disease, status post CABG and PCI, status post pacemaker implantation (Medtronic), status post old CVA, paroxysmal atrial flutter (on Eliquis), COPD on home oxygen, fibromyalgia, pulmonary hypertension, history of poor functional status, history of GI bleeding, pulmonary fibrosis, hiatal hernia, ex-smoker, status post gold cholecystectomy/hysterectomy. Is known to have closed grafts for CABG. Has had high risk PCI/left main in [facility] (few years back). Does have history of abnormal nuclear stress test and the plan has been to manage her medically. Has been kept on Eliquis and Plavix as outpatient. She is ex-smoker. Left heart catheterization revealed multivessel coronary artery disease. SVG nourishing 1 of the ramus intermedius was diseased but the decision was to manage it medically (ramus intermedius had good flow from patent left main: left main was stented before). Has been offered to go for Watchman device as outpatient. It is of note that the patient have diastolic heart failure and also pulmonary fibrosis. She does have pulmonary hypertension. Components of both type 2 and type 3 pulmonary hypertension can be present. Echocardiogram of January 09, 2023 revealed LVEF of 55 to 60%, mild concentric left ventricular hypertrophy, no wall motion abnormality, mild biatrial enlargement, pacing wire in right-sided chambers, mild to moderate aortic insufficiency, mild mitral regurgitation, mild to moderate tricuspid regurgitation and right ventricular systolic pressure of 35 mmHg Echocardiogram of March 07, 2023 had revealed ejection fraction of 55 to 60%, mild concentric left ventricular hypertrophy, mild AI/MR/PI, mild biatrial enlargement, pacemaker wire in the right-sided chambers and right ventricular systolic pressure of 34 mmHg Echocardiogram of September 06, 2023 revealed ejection fraction of 55% and pacemaker in right-sided chambers Echocardiogram of December 26, 2023 had reported ejection fraction of 55-60%, no wall motion abnormality, [id number] aortic insufficiency, mild MR, moderate TR and right ventricular systolic pressure 42 mm Hg Echocardiogram of August 30, 2024 reported ejection fraction of 55-60%, no wall motion abnormality, mild biatrial enlargement, pacemaker in the right-sided chambers, mild AI/MR and moderate tricuspid regurgitation. Right ventricular systolic pressure was assessed at 41 mm Hg. Echocardiogram of December 20, 2024 (performed in the office) revealed ejection fraction of 60-65%, mild concentric left ventricular hypertrophy, pseudo normal LV filling, mild biatrial enlargement, mild right ventricular enlargement with good systolic function, moderate aortic insufficiency, aortic sclerosis with no stenosis, mild mitral annular calcification, vwig-[id number] MR/TR and right ventricular systolic pressure of 53 mm Hg. Echocardiogram of January 10, 2025 revealed mild concentric left ventricular hypertrophy, ejection fraction of 60-65%, pseudo normal LV filling, [id number]-[id number] aortic insufficiency, mild mitral regurgitation, moderate tricuspid regurgitation and right ventricular systolic pressure of 67 mm Hg. BRAD of January 13, 2025 revealed no significant valvular disease Right and left heart catheterization of January 13, 2025 revealed multivessel coronary artery disease LVEF of around 50%; Apical aneurysm; Increased LVEDP (19 mm Hg); No pulmonary hypertension; Patent left main stent into LCX (dominant vessel) with no significant disease; Proximal LAD was RACING MECHANIC with minor parallel collaterals. LAD was a diffusely diseased vessel with areas of focal aneurysm; Presence of 2 ramus intermedius; One of the ramus intermedius is with mild disease; Second ramus: Relatively small vessel with mild disease. There was SVG 'also' nourishing it. SVG itself had ostial and middle SVG section disease (decision was made to manage it medically); DANIELLE was atretic but patent; There was 2 other SVG's which were RACING MECHANIC at ostium and suggestion was for medical therapy Hemoglobin: 10.8 - 10.2 - 10.3 - 10.4 - 8.9 today's pending White blood cell: 6.3 - 7.1 - 8.1 - 7.9 - 5.7 today's pending Creatinine: 0.74 - 0.60 - 0.72 - 0.70 Potassium: 4.5 - 4.8 - 3.8 - 4.0 Troponin (high sensitive): 3 - 4 BNP: 116.39 TSH: 2.82 D-Dimer: 0.27 (WNL) UDS: non-revealing Stool OB: positive Chest x-ray revealed: IMPRESSION: Diffuse interstitial prominence which may be from fibrotic changes with superimposed pulmonary edema/ atypical pneumonia. Obscuration of the left hemidiaphragm with indistinctness of the right hemidiaphragm which may be from pleural effusion with associated atelectasis. EKG revealed A paced with nonspecific ST-T changes. Another EKG revealed bundle branch block. Telemetry reveals sinus rhythm and occasions NSVT Medtronic interrogation: Battery remaining longevity: 11.4 years; AAIR-DDDR: 70/130; Program sensitivity: A 0.3/RV 0.45 mV; A pace: 66%; V pace: <0.1%; No episodes; Normal functioning Medtronic pacemaker Echocardiogram revealed: Technically limited study secondary to poor acoustic window. Left ventricle: Left ventricle was normal-sized. LVEF was around 55%. Even though no gross wall motion abnormality was seen, its presence can not be ruled out on the basis of this study. Right ventricle was normal-sized with reduced systolic function. Both atria were mildly dilated. Pacing wire was seen in right-sided chambers. Aortic valve was not well visualized. Ryyf-gw-jpkcqafb aortic insufficiency was seen. Aortic sclerosis with no stenosis was identified. Mild mitral regurgitation was seen. Moderate tricuspid regurgitation was seen. Pulmonary valve was not visualized. Right ventricular systolic pressure was assessed at 37 mm Hg. There was no pericardial effusion. Patient is a 75-year-old female who presented with repeated nausea and vomiting which was followed by anterior chest discomfort/tenderness. Chest pain has been pleuritic. Serial high sensitive troponin has been negative. Acute coronary syndrome is not considered. It is of note that the patient had right and left heart catheterization in January 2025 (suggestion was for medical management). Is referred for elective/outpatient Watchman which has not happened before. He is kept on Eliquis/Plavix as outpatient. The dose of Eliquis and has been 2.5 b.i.d. (has had repeated GI bleedings secondary to hiatal hernia). Chest x-ray revealed congestion of the lungs versus pneumonia. It is of note that the patient does have baseline history of diastolic heart failure and component of acute on chronic diastolic heart failure could be present. Was evaluated by GI. Stool OB is positive. H/H is stable. Chest discomfort, atypical Pleuritic chest pain Nausea and vomiting, repeated Acute on chronic diastolic heart failure Coronary artery disease, status post CABG/PCI Paroxysmal atrial flutter (on Eliquis as outpatient) COPD/Emphysema Pulmonary fibrosis Pulmonary hypertension, history of Chronic diastolic heart failure Status post pacemaker Hypokalemia Paroxysmal atrial flutter with RVR Hiatal Hernia Sepsis Diarrhea GI bleeding, significant, s/p PRBC transfusion Cardiac suggestions for management: Manage on telemetry Gentle diuresis Follow-up electrolytes and kidney function and correct abnormalities, keep potassium above 4 magnesium above 2 Oral Amiodarone: 200 mg HS On Lovenox (therapy dose) and Plavix. 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 Antianginal therapy Continuation of Statin/Ranexa/Imdur/Coreg is suggested Was evaluated by GI Cardiac wilcox, patient is moderate risk patient for low risk EGD procedure. Cardiac wilcox, you can proceed with EGD under appropriate intra and post operative hemodynamic monitoring. Avoid hypotension. Cardiac wilcox, stable and can be followed as outpatient Further evaluation and management depends on the above and clinical course A total of 55 minutes was spent reviewing the patient record, examining the patient, making a diagnostic and therapeutic plan, discussing this plan with medical personnel, following up on diagnostic studies and following the patient for clinical stability excluding any and all procedures. At least 50% of this time was spent in direct, [id number] contact. Thank you for allowing me to participate in this patient's care. Further recommendations will depend on patient's clinical course. Please do not hesitate to contact me if you have any questions or concerns. This medical document was created using electronic medical record system with [employer] computerized dictation system. Although this document has been carefully reviewed, there may still be some phonetic and typographical errors. These areas are purely typographical due to the imperfection of the software programs, and do not reflect any compromise in the patient's medical care. Dietary Evaluation Review Comments: 1. Monitor PO intake to meet 75% of her needs 2. Refer to PCP for medication review 3. minimize her medication list Expected Outcomes/Goals: take less medication if possible, gradual wt loss Plan discussed with: Patient, Other (nurse) AJAY SMALLWOOD MD May 16, 2025 07:19
[2025-05-16 07:26] LABS: Hematocrit 28.4 % (36.0-46.0); Hemoglobin 9.5 g/dL (12.2-16.2); Mean Corpuscular Hemoglobin 31.4 pg (28.0-32.0); Mean Corpuscular Volume 93.3 fL (80.0-100.0); Nucleated Red Blood Cells % 0.1 %
[2025-05-16] MEDS ORDERED: METOCLOPRAMIDE HCL 5MG/ml INJ 2ml VIAL ONE (10:01)
[2025-05-16] MEDS ORDERED: LIDOCAINE 2% (LOCAL ANESTH.) PF 5ml SDV ONE (10:01)
[2025-05-16] MEDS ORDERED: ONDANSETRON HCL 4 MG/2 ML VIAL ONE (10:01)
[2025-05-16] MEDS ORDERED: PROPOFOL 10 MG/ML 20 ML IV ONE (10:02)
--- NOTE | 2025-05-16 10:18 | DVHOP2 ---
Operative Report DATE OF OPERATION: 05/16/25 PROCEDURE: Upper Endoscopy with biopsy. PREOPERATIVE INDICATION: The patient is a 75 -year-old female undergoing endoscopy for heme-positive stools and drop in hemoglobin hematocrit POSTOPERATIVE DIAGNOSES: 1. 1-2 cm sliding-type hiatal hernia with slightly irregular squamocolumnar junction 2. Minimal gastritis otherwise normal examination up to the 2nd and 3rd part of the duodenum PROCEDURE PERFORMED BY: Cherri Quiroga GI NURSE: Chelsie SCOPE: Olympus videoendoscope. ASA CLASS: 2. PREOPERATIVE MEDICATIONS: Mac sedation, Eric strauss PROCEDURE IN DETAIL: After obtaining an informed consent, the patient was placed on left lateral decubitus position. The patient was then sedated with the above medications. A bite block was placed between her teeth. The endoscope was then passed through the oropharynx, into the esophagus, and through the stomach and pylorus up to the second and third part of the duodenum. The endoscope was then withdrawn. The 2nd and 3rd part of the duodenum and the duodenal bulb were normal. Duodenal biopsies were obtained The pre-pyloric area antrum and body showed minimal gastritis. Gastric biopsies were obtained. There was no fresh or old blood in the stomach. On retroflexion the fundus and cardia were normal. The endoscope was then withdrawn into distal esophagus. Patient had a 1-2 cm sliding-type hiatal hernia with slightly irregular squamocolumnar junction. GE junction biopsies were obtained. The remaining distal and proximal esophagus and oropharynx were unremarkable. The patient tolerated the procedure well without difficulty. COMPLICATIONS : None SPECIMENS: Duodenal biopsies Gastric biopsies GE junction biopsies DISPOSITION: Transfer back to the floor Stable PLAN: 1. Await for biopsy result 2. Will place pt on Protonix 40 mg p.o. daily 3. Resume soft mechanical diet 4. Check CEA level and we will review report of previous barium enema x-ray, if bleeding continues consider getting a barium enema x-ray or CT colonography CHERRI QUIROGA MD May 16, 2025 10:18
--- NOTE | 2025-05-16 10:27 | DVHPN2 ---
Subjective Denies any symptoms Reviewed: Care Plan, H&P, Labs, Medications, Previous Orders Changes from previous H/P or p: No Changes General: Per HPI Objective Vitals Vital Signs Date Time Temp Pulse Resp B/P (MAP) Pulse Ox O2 Delivery O2 Flow Rate FiO2 05/16/25 09:00 96.4 70 18 111/66 (81) 100 96.4 05/15/25 20:00 Nasal Cannula* 3 32 Intake/Output Intake and Output 05/16/25 07:00 Intake Total 1300 ml Balance 1300 ml Intake Oral 1300 ml # Voids 14 General Appearance: Alert, Oriented X3, Cooperative, No acute distress, mild distress HEENT: Atraumatic, PERRLA Cardiovascular: Normal S1, Normal S2 Abdomen: Normal bowel sounds, Soft, No tenderness, No hepatospenomegaly Musculoskeletal: Normal sensory function, Normal motor function Neuro: Normal gait, Normal speech, Strength at 5/5 X4 ext Psych/Mental Status: Mental status NL, Mood NL Medications Current Medications Medications Dose Ordered Sig/Romaine Route Start Time Stop Time Status Last Admin Dose Admin Acetaminophen 325 mg Q4HP PRN PO 05/11/25 21:15 Morphine Sulfate 2 mg Q4HPRN PRN IV 05/11/25 21:15 Cancel Morphine Sulfate 2 mg Q30M PRN IV 05/11/25 21:15 Nitroglycerin 0.4 mg Q5MINP PRN SL 05/11/25 21:15 Amiodarone HCl 200 mg HS PO 05/12/25 22:00 05/15/25 21:17 200 MG Clopidogrel Bisulfate 75 mg DAILY PO 05/12/25 10:00 Cancel Dicyclomine HCl 10 mg Q6HP PO 05/12/25 00:00 05/15/25 18:23 10 MG Docusate Sodium 100 mg BIDPRN PRN PO 05/11/25 22:15 Isosorbide Mononitrate 60 mg DAILY PO 05/12/25 10:05/15/25 10:00 60 MG Montelukast Sodium 10 mg DAILY PO 05/12/25 10:00 05/15/25 09:57 10 MG Potassium Chloride 20 meq DAILY PO 05/12/25 10:00 05/15/25 09:59 20 MEQ Ranolazine 500 mg BID PO 05/12/25 10:00 05/15/25 21:17 500 MG Sucralfate 1 gm BID PO 05/12/25 10:00 05/15/25 21:16 1 GM Tramadol HCl 50 mg BID PRN PO 05/11/25 22:15 05/15/25 18:23 50 MG Atorvastatin Calcium 40 mg HS PO 05/12/25 22:00 05/15/25 21:17 40 MG Carvedilol 25 mg BID PO 05/12/25 10:00 05/15/25 21:16 25 MG Magnesium Oxide 400 mg DAILY PO 05/12/25 10:00 05/15/25 10:00 400 MG Saccharomyces Boulardii 250 mg DAILY PO 05/13/25 10:00 05/15/25 10:01 250 MG Ondansetron HCl 4 mg Q6HPRN PRN IV 05/12/25 13:45 05/15/25 18:22 4 MG Clopidogrel Bisulfate 75 mg DAILY PO 05/12/25 20:00 UNV Apixaban 2.5 mg BID PO 05/14/25 10:00 UNV Enoxaparin Sodium 70 mg Q12HR SC 05/14/25 22:00 05/14/25 21:52 70 MG Pantoprazole Sodium 40 mg DAILY IV 05/15/25 10:00 05/15/25 10:01 40 MG Furosemide 40 mg DAILY PO 05/16/25 10:00 Morphine Sulfate 2 mg Q4HPRN PRN IV 05/15/25 13:00 Laboratory Results Laboratory Tests 05/15/25 05:58 05/16/25 06:51 Urinalysis Test 05/12/25 15:30 Urine Color Yellow (Yellow) Urine Clarity Clear (Clear) Urine pH 5.5 (5.0-9.0) Urine Specific Stevenson 1.028 (1.001-1.035) Urine Protein Negative (Negative) Urine Ketones Trace (Negative) Urine Blood Negative /uL (Negative) Urine Nitrite Negative (Negative) Urine Bilirubin Negative (Negative) Urine Urobilinogen Normal mg/dL (Negative) Urine Leukocyte Esterase Negative /uL (Negative) Urine RBC 1 /hpf (0 - 4) Urine Microscopic WBC 1 /HPF (0-5) Urine Squamous Epithelial Cells Few /hpf (<5) Urine Bacteria None seen /hpf (None Seen) Urine Mucus Few (None Seen) Urine Glucose Normal mg/dL (Normal) Labs and/or images reviewed: Labs reviewed by me, Image(s) reviewed by me Assessment/Plan Assessment/Plan Impression: -Acute on chronic diastolic heart failure -coronary artery disease with previous CABG in stent placement -COPD with chronic respiratory failure -pulmonary fibrosis -paroxysmal atrial flutter -primary hypertension -history of CVA -pulmonary hypertension -previous PPI placement -quadriplegia -intractable nausea and vomiting with questionable GI bleed Plan: -GI consultation: Plans for EGD today -transitioned Lovenox to Eliquis after EGD -cardiology consultation: Recommendations reviewed continue current blood pressure, rate control agents -PPI, Carafate -antiemetics -repeat labs in a.m. -reassess for discharge in a.m. pending symptoms and findings of EGD Total time spent with patient discussing and formulating plan of care: 35 minutes. This medical document was created using an electronic medical record system with [employer] dictation system. Although this document has been carefully reviewed, there may still be some phonetic and typographical errors. These areas are purely typographical due to imperfections of the software programs, and do not reflect any compromise in the patient's medical care. Plan discussed with: Patient, Other (RN) Date of Service: May 16, 2025 Billing Provider: POOL DILLARD NP Common Visit Codes: [id number] INP/OBS CARE(HIGH) POOL DILLARD NP May 16, 2025 10:27
[2025-05-16] MEDS: FUROSEMIDE 40 MG TAB PO SCH (12:28)
[2025-05-16] MEDS ORDERED: PANT40TA2 PO (15:43)
[2025-05-16] MEDS ORDERED: SUCR1TAB31 OR (15:43)
--- NOTE | 2025-05-16 15:49 | DVHDS2 ---
Discharge Summary Date of Admission May 11, 2025 at 21:02 Date of Discharge: May 16, 2025 Admitting Diagnosis Unstable angina Labs/Diagnostic Data: Laboratory Results Test 05/16/25 06:51 05/15/25 05:58 05/13/25 12:45 05/12/25 15:30 White Blood Count 5.6 10^3/uL (4.4-10.8) Red Blood Count 3.04 10^6/uL (4.0-5.20) Hemoglobin 9.5 g/dL (12.2-16.2) Hematocrit 28.4 % (36.0-46.0) Mean Corpuscular Volume 93.3 fL (80.0-100.0) Mean Corpuscular Hemoglobin 31.4 pg (28.0-32.0) Mean Corpuscular Hemoglobin Concent 33.6 g/dL (32.0-36.0) Red Cell Distribution Width 13.6 % (11.8-14.3) Platelet Count 206 10^3/uL (140-450) Mean Platelet Volume 7.5 fL (6.9-10.8) Neutrophils (%) (Auto) 74.8 % (37.0-80.0) Lymphocytes (%) (Auto) 11.0 % (10.0-50.0) Monocytes (%) (Auto) 9.2 % (0.0-12.0) Eosinophils (%) (Auto) 4.2 % (0.0-7.0) Basophils (%) (Auto) 0.8 % (0.0-2.0) Neutrophils # (Auto) 4.2 10 ^3/uL (1.6-8.6) Lymphocytes # (Auto) 0.6 10 ^3/uL (0.4-5.4) Monocytes # (Auto) 0.5 10 ^3/uL (0-1.3) Eosinophils # (Auto) 0.2 10 ^3/uL (0-0.8) Basophils # (Auto) 0 10 ^3/uL (0-0.2) Nucleated Red Blood Cells 0.1 % Sodium Level 138 mmol/L (136-145) Potassium Level 4.0 mmol/L (3.5-5.1) Chloride Level 99 mmol/L (98-107) Carbon Dioxide Level 29 mmol/L (20-31) Anion Gap 10 (5-15) Blood Urea Nitrogen 9 mg/dL (9-23) Creatinine 0.70 mg/dL (0.550-1.02) Glomerular Filtration Rate Calc 90 mL/min (>90) BUN/Creatinine Ratio 12.9 (10.0-20.0) Serum Glucose 87 mg/dL (74-106) Calcium Level 8.9 mg/dL (8.7-10.4) Stool Occult Blood Pos x1 (Negative) Stool Occult Blood Sample #3 (Negative) Stool for White Cells Rare Urine Color Yellow (Yellow) Urine Clarity Clear (Clear) Urine pH 5.5 (5.0-9.0) Urine Specific [place] 1.028 (1.001-1.035) Urine Protein Negative (Negative) Urine Ketones Trace (Negative) Urine Blood Negative /uL (Negative) Urine Nitrite Negative (Negative) Urine Bilirubin Negative (Negative) Urine Urobilinogen Normal mg/dL (Negative) Urine Leukocyte Esterase Negative /uL (Negative) Urine RBC 1 /hpf (0 - 4) Urine Microscopic WBC 1 /HPF (0-5) Urine Squamous Epithelial Cells Few /hpf (<5) Urine Bacteria None seen /hpf (None Seen) Urine Mucus Few (None Seen) Urine Glucose Normal mg/dL (Normal) Urine Opiates Screen Neg (NEGATIVE) Urine Fentanyl Screen Neg (NEGATIVE) Urine Barbiturates Screen Neg (NEGATIVE) Urine Phencyclidine Screen Neg (NEGATIVE) Urine Amphetamines Screen Neg (NEGATIVE) Urine Benzodiazepines Screen Neg (NEGATIVE) Urine Cocaine Screen Neg (NEGATIVE) Urine Cannabinoids Screen Neg (NEGATIVE) Test 05/12/25 10:13 05/12/25 05:43 05/11/25 18:16 Prothrombin Time 13.1 sec (9.3-11.8) Prothrombin Time INR 1.26 (0.9-1.15) Activated Partial Thromboplast Time 29.4 SEC (24.5-34.5) D-Dimer, Quantitative 0.27 mg/L FEU (0.0-0.49) Lactic Acid Level 0.6 mmol/L (0.4-2.0) Hemoglobin A1c < 3.8 % A1C (<5.7) Phosphorus Level 3.4 mg/dL (2.4-5.1) Magnesium Level 2.0 mg/dL (1.6-2.6) Total Bilirubin 0.2 mg/dL (0.2-1.0) Direct Bilirubin < 0.1 mg/dL (<0.3) Aspartate Amino Transferase (AST) 51 U/L (13-40) Alanine Aminotransferase (ALT) 21 U/L (7-40) Alkaline Phosphatase 79 U/L (46-116) B-Type Natriuretic Peptide 116.39 pg/mL (0-100) Total Protein 5.9 g/dL (5.7-8.2) Albumin 3.7 g/dL (3.2-4.8) Triglycerides Level 144 mg/dL (< 150) Cholesterol Level 101 mg/dL (< 200) LDL Cholesterol 28 mg/dL (< 100) HDL Cholesterol 59 mg/dL (40-59) Vitamin B12 Level 2871 pg/mL (211-911) Vitamin D 25-Hydroxy 54.8 ng/mL (30.0-100) Thyroid Stimulating Hormone (TSH) 2.82 uIU/mL (0.55-4.78) Hepatitis B Surface Antigen Negative (Negative) Hepatitis C Antibody Negative (Negative) Troponin I High Sensitivity 4 ng/L (</=34) Other Laboratory Tests 05/16/25 06:51 05/15/25 05:58 Brief Hx & Hospital Course: History of Present Illness Maria Del Rosario Slaughter is a 75-year-old female patient who presents to ED with chief complaint of intermittent stabbing chest pain which is left and right-sided, started on Monday in Functional Class IV presented with intensity 7/10, associated with nausea and vomiting with 12 episodes of food containing emesis. Patient also describes increased dyspnea in Functional Class IV, requiring increasing her oxygen requirement from 3 L/min to 4 L/min. Patient describes similar symptoms as when she [facility] (previously documented ang[facility]). Patient reports that they are planning to insert Watchman device so she can stop anticoagulation. Her last stent was placed approximately three years ago, she does have a coronary angiography in 01/2025 which showed chronic total obstruction, her occupational health and safety manager (Dr. Martinez) indicated optimal medical therapy since lesions are not passable for revascularization. Denies any other associated symptoms including palpitation and syncope. Course of hospitalization: While patient did have chest pain, resolved with treatment for her acute on chronic diastolic heart failure with IV diuresis. Cardiology consultation was obtained. Patient was noted to have worsening anemia, with positive occult blood. Anticoagulation with Eliquis and Lovenox was held. Patient had EGD today which was negative for any acute bleeding. H&H has been stable with the use of Protonix and Carafate. Patient has no further signs of bleeding in his requesting to be discharged home. Patient will be continued on all home medications, with continuation of both Plavix and Eliquis which is at 2.5 mg p.o. twice a day. Patient will be discharged home on Protonix 40 mg p.o. twice a day as well as Carafate 1 g tablet p.o. twice a day. She is instructed to follow up with her PCP, Dr. Nielsen for appropriate provider associate in one week. She is agreeable with discharge plan. All questions answered. Physical exam General: Alert and Oriented x3. No acute distress. Well-nourished. Eyes: EOMI. Anicteric. HENT: Moist mucous membranes. Lungs: Clear to auscultation bilaterally. No accessory muscle use. Cardiovascular: Regular rate and rhythm. No murmur. No JVD. Abdomen: Soft, non-tender and non-distended. No palpable masses. Extremities: No edema. Non-tender. Skin: No rashes or lesions. Warm. Neurologic: No focal neurological deficits. CN II-XII grossly intact, but not individually tested. Psychiatric: Cooperative. Appropriate mood and affect. Total time spent with patient discussing and formulating plan of care: 35 minutes. This medical document was created using an electronic medical record system with [employer] dictation system. Although this document has been carefully reviewed, there may still be some phonetic and typographical errors. These areas are purely typographical due to imperfections of the software programs, and do not reflect any compromise in the patient's medical care. Consults/Reason for consult Cardiology: Chest pain Gastroenterology: Questionable GI bleed Operations or Procedures 05/16/2025 EGD Condition at Discharge: Guarded Final Diagnosis/Problems List GI bleed -Acute on chronic diastolic heart failure -coronary artery disease with previous CABG in stent placement -COPD with chronic respiratory failure -pulmonary fibrosis -paroxysmal atrial flutter -primary hypertension -history of CVA -pulmonary hypertension -previous PPI placement -quadriplegia -intractable nausea and vomiting with questionable GI bleed Discharge Disposition: Home Discharge Instruct/Medications Diet: Cardiac 2g Na,low cholest Activity: No Restrictions, As Tolerated Follow Up/Referral: Follow up with the PCP, Dr. Nielsen in 1-2 weeks Medications: Protonix 40 mg p.o. b.i.d. times 30 days Carafate 1 g tablet p.o. b.i.d. times 30 days Eliquis 2.5 mg p.o. b.i.d. Continue all previous home medications Scheduled Amiodarone Hcl (Amiodarone Hcl), 1 TAB PO HS Apixaban Base (Eliquis), 2.5 MG PO BID Ascorbic Acid (Vitamin C Tablet), 2,000 MG PO DAILY, (Reported) Atorvastatin Calcium (Atorvastatin Calcium), 1 TAB PO HS, (Reported) Carvedilol (Carvedilol), 1 TAB PO TID, (Reported) Clopidogrel Bisulfate (Plavix), 75 MG PO DAILY Dicyclomine Hcl (Bentyl Capsule), 1 CAP PO QID PRN, (Reported) Evolocumab (Repatha), 1 ML SC Q2WEEK, (Reported) Ferrous Sulfate (Ferosul), 1 TAB PO BID, (Reported) Ztvhhjsfveu-Mqxltkdblztm-Begvf (Trelegy Ellipta 200-62.5-25 Mcg/INH), 1 PUFF IN DAILY, (Reported) Furosemide (Furosemide), 1 TAB PO DAILY, (Reported) Ldqficrifaj-Qisyarqtyiu-Mho C- (Glucosamine Chondroitin), 1,500 MG PO BID, (Reported) Isosorbide Mononitrate (Isosorbide Mononitrate Er), 1 TAB PO DAILY, (Reported) Magnesium Oxide (Magnesium Oxide), 1 TAB PO DAILY, (Reported) Montelukast Sodium (Montelukast Sodium), 1 TAB PO DAILY, (Reported) Pantoprazole Sodium Sesquihydr (Pantoprazole Sodium), 1 TAB PO DAILY, (Reported) Pantoprazole Sodium Sesquihydr (Protonix), 40 MG PO DAILY Pantoprazole Sodium Sesquihydr (Protonix), 40 MG PO BID Potassium Chloride (K-Tabs), 1 TAB.CHEW PO DAILY, (Reported) Ranolazine (Ranolazine ER), 1 TAB PO BID, (Reported) Sucralfate (Carafate Susp), 10 ML PO BID Sucralfate (Carafate), 1 GM OR BID Zinc Sulfate (Zinc Sulfate), 50 MG PO DAILY, (Reported) Scheduled PRN Docusate Sodium (Docusate Sodium), 100 MG PO BIDPRN PRN Nitroglycerin (Nitroglycerin Lingual), 0.4 MG TL BID PRN for FOR CHEST PAIN, (Reported) Ondansetron Odt 4MG Tab (Zofran Po), 4 MG PO Q8HR PRN Tramadol Hcl (Tramadol Hcl), 50 MG PO BID PRN for PAIN SCALE 1 THRU 6, (Reported) 36 Discharge Statement: "Patient was advised to return to the ER or call 911 if any headaches, dizziness, shortness of breath, chest pain, abdominal pain, bleeding, fevers, or worsening of medical condition. Patient was counseled about treatment plan, medications, possible side effects, patientverbalized understanding. All questions were answered to the best of my ability. This discharge took greater then 30 minutes in planning, reviewing documentation, counseling the patient, and discussing with other team members." ASSESSMENT ASSESSMENT Assessment GI bleed Date of Service: May 16, 2025 Billing Provider: POOL DILLARD NP Common Visit Codes: 00299-UIV/OBS DISCH DAY >30min POOL DILLARD NP May 16, 2025 15:49
[2025-05-17 01:00] VITALS: BP 102/56; PULSE 73; RESP 17; TEMP 97.8; O2SAT 100
[2025-05-17 05:00] VITALS: BP 111/61; PULSE 65; RESP 17; TEMP 97.9; O2SAT 100
--- NOTE | 2025-05-17 06:42 | DVHPN2 ---
Progress Note - Dictate Date Seen: May 17, 2025 Medical Necessity Reason Pt with a Central, PICC or Fol: No vital signs Vital Sign Date Time Temp Pulse Resp B/P (MAP) Pulse Ox O2 Delivery O2 Flow Rate FiO2 05/17/25 01:00 73 102/56 05/17/25 01:00 97.8 17 100 97.8 05/16/25 20:00 Room Air* 0 21 Total Intake and Output 05/16/25 05/16/25 05/17/25 15:00 23:00 07:00 Intake Total 10 ml 400 ml Output Total 300 ml Balance 10 ml 100 ml medications Current Medications Medications Dose Ordered Sig/Romaine Route Start Time Stop Time Status Last Admin Dose Admin Acetaminophen 325 mg Q4HP PRN PO 05/11/25 21:15 Morphine Sulfate 2 mg Q4HPRN PRN IV 05/11/25 21:15 Cancel Morphine Sulfate 2 mg Q30M PRN IV 05/11/25 21:15 Nitroglycerin 0.4 mg Q5MINP PRN SL 05/11/25 21:15 Amiodarone HCl 200 mg HS PO 05/12/25 22:00 05/16/25 21:28 Clopidogrel Bisulfate 75 mg DAILY PO 05/12/25 10:00 Cancel Dicyclomine HCl 10 mg Q6HP PO 05/12/25 00:00 05/17/25 05:42 Docusate Sodium 100 mg BIDPRN PRN PO 05/11/25 22:15 Isosorbide Mononitrate 60 mg DAILY PO 05/12/25 10:00 05/16/25 12:55 Montelukast Sodium 10 mg DAILY PO 05/12/25 10:00 05/16/25 12:28 Potassium Chloride 20 meq DAILY PO 05/12/25 10:00 05/16/25 12:28 Ranolazine 500 mg BID PO 05/12/25 10:00 05/16/25 21:27 Sucralfate 1 gm BID PO 05/12/25 10:00 05/16/25 21:28 Tramadol HCl 50 mg BID PRN PO 05/11/25 22:15 05/15/25 18:23 Atorvastatin Calcium 40 mg HS PO 05/12/25 22:00 05/16/25 21:27 Carvedilol 25 mg BID PO 05/12/25 10:00 05/16/25 21:27 Magnesium Oxide 400 mg DAILY PO 05/12/25 10:00 05/16/25 12:28 Saccharomyces Boulardii 250 mg DAILY PO 05/13/25 10:00 05/16/25 12:55 Ondansetron HCl 4 mg Q6HPRN PRN IV 05/12/25 13:45 05/15/25 18:22 Clopidogrel Bisulfate 75 mg DAILY PO 05/12/25 20:00 UNV Apixaban 2.5 mg BID PO 05/14/25 10:00 UNV Enoxaparin Sodium 70 mg Q12HR SC 05/14/25 22:00 05/16/25 21:28 Pantoprazole Sodium 40 mg DAILY IV 05/15/25 10:00 05/16/25 12:27 Furosemide 40 mg DAILY PO 05/16/25 10:00 Morphine Sulfate 2 mg Q4HPRN PRN IV 05/15/25 13:00 laboratory and microbiology Laboratory Tests 05/16/25 06:51 05/15/25 05:58 Test 05/15/25 05:58 Range/Units Serum Glucose 87 74-106 mg/dL Assessment/Plan 75-year-old female presented with few days of repeated nausea and vomiting. She mentions that after many episodes of nausea and vomiting she started to feel bilateral anterior chest tenderness. Cardiology is involved for cardiac aspects of care. Patient is known to our practice from outside and before. Does have baseline history of coronary artery disease and is status post PCI/CABG. Mentions that she has been taking her outside medications (including Eliquis/Plavix). Patient had right and left heart catheterization and BRAD in January 2025. Since admission, serial troponin has been negative. It is of note that the patient has had repeated GI bleedings and has had PRBC transfusion for it. Lying comfortably flat in bed. No JVD. pink mucosa. Lungs reveal scattered rhonchi. Cardiac: Regular, no thrills/murmur. Abdomen is soft. No hepatomegaly. Bowel sounds positive. Lower extremities do not reveal edema. Dorsalis pedis is 2+ bilateral Past medical history includes diabetes mellitus, hyperlipidemia, hypertension, diastolic heart failure, peripheral artery disease, GERD, anxiety, anemia, asthma, coronary artery disease, status post CABG and PCI, status post pacemaker implantation (Medtronic), status post old CVA, paroxysmal atrial flutter (on Eliquis), COPD on home oxygen, fibromyalgia, pulmonary hypertension, history of poor functional status, history of GI bleeding, pulmonary fibrosis, hiatal hernia, ex-smoker, status post gold cholecystectomy/hysterectomy. Is known to have closed grafts for CABG. Has had high risk PCI/left main in [facility] (few years back). Does have history of abnormal nuclear stress test and the plan has been to manage her medically. Has been kept on Eliquis and Plavix as outpatient. She is ex-smoker. Left heart catheterization revealed multivessel coronary artery disease. SVG nourishing 1 of the ramus intermedius was diseased but the decision was to manage it medically (ramus intermedius had good flow from patent left main: left main was stented before). Has been offered to go for Watchman device as outpatient. It is of note that the patient have diastolic heart failure and also pulmonary fibrosis. She does have pulmonary hypertension. Components of both type 2 and type 3 pulmonary hypertension can be present. Echocardiogram of January 09, 2023 revealed LVEF of 55 to 60%, mild concentric left ventricular hypertrophy, no wall motion abnormality, mild biatrial enlargement, pacing wire in right-sided chambers, mild to moderate aortic insufficiency, mild mitral regurgitation, mild to moderate tricuspid regurgitation and right ventricular systolic pressure of 35 mmHg Echocardiogram of March 07, 2023 had revealed ejection fraction of 55 to 60%, mild concentric left ventricular hypertrophy, mild AI/MR/PI, mild biatrial enlargement, pacemaker wire in the right-sided chambers and right ventricular systolic pressure of 34 mmHg Echocardiogram of September 06, 2023 revealed ejection fraction of 55% and pacemaker in right-sided chambers Echocardiogram of December 26, 2023 had reported ejection fraction of 55-60%, no wall motion abnormality, [id number] aortic insufficiency, mild MR, moderate TR and right ventricular systolic pressure 42 mm Hg Echocardiogram of August 30, 2024 reported ejection fraction of 55-60%, no wall motion abnormality, mild biatrial enlargement, pacemaker in the right-sided chambers, mild AI/MR and moderate tricuspid regurgitation. Right ventricular systolic pressure was assessed at 41 mm Hg. Echocardiogram of December 20, 2024 (performed in the office) revealed ejection fraction of 60-65%, mild concentric left ventricular hypertrophy, pseudo normal LV filling, mild biatrial enlargement, mild right ventricular enlargement with good systolic function, moderate aortic insufficiency, aortic sclerosis with no stenosis, mild mitral annular calcification, [id number] MR/TR and right ventricular systolic pressure of 53 mm Hg. Echocardiogram of January 10, 2025 revealed mild concentric left ventricular hypertrophy, ejection fraction of 60-65%, pseudo normal LV filling, [id number] aortic insufficiency, mild mitral regurgitation, moderate tricuspid regurgitation and right ventricular systolic pressure of 67 mm Hg. BRAD of January 13, 2025 revealed no significant valvular disease Right and left heart catheterization of January 13, 2025 revealed multivessel coronary artery disease LVEF of around 50%; Apical aneurysm; Increased LVEDP (19 mm Hg); No pulmonary hypertension; Patent left main stent into LCX (dominant vessel) with no significant disease; Proximal LAD was GASTROENTEROLOGY NURSE PRACTITIONER with minor parallel collaterals. LAD was a diffusely diseased vessel with areas of focal aneurysm; Presence of 2 ramus intermedius; One of the ramus intermedius is with mild disease; Second ramus: Relatively small vessel with mild disease. There was SVG 'also' nourishing it. SVG itself had ostial and middle SVG section disease (decision was made to manage it medically); DANIELLE was atretic but patent; There was 2 other SVG's which were GASTROENTEROLOGY NURSE PRACTITIONER at ostium and suggestion was for medical therapy Hemoglobin: 10.8 - 10.2 - 10.3 - 10.4 - 8.9 today's pending White blood cell: 6.3 - 7.1 - 8.1 - 7.9 - 5.7 today's pending Creatinine: 0.74 - 0.60 - 0.72 - 0.70 Potassium: 4.5 - 4.8 - 3.8 - 4.0 Troponin (high sensitive): 3 - 4 BNP: 116.39 TSH: 2.82 D-Dimer: 0.27 (WNL) UDS: non-revealing Stool OB: positive Chest x-ray revealed: IMPRESSION: Diffuse interstitial prominence which may be from fibrotic changes with superimposed pulmonary edema/ atypical pneumonia. Obscuration of the left hemidiaphragm with indistinctness of the right hemidiaphragm which may be from pleural effusion with associated atelectasis. EKG revealed A paced with nonspecific ST-T changes. Another EKG revealed bundle branch block. Telemetry reveals sinus rhythm and occasions NSVT G-cluster interrogation: Battery remaining longevity: 11.4 years; AAIR-DDDR: 70/130; Program sensitivity: A 0.3/RV 0.45 mV; A pace: 66%; V pace: <0.1%; No episodes; Normal functioning Medtronic pacemaker Echocardiogram revealed: Technically limited study secondary to poor acoustic window. Left ventricle: Left ventricle was normal-sized. LVEF was around 55%. Even though no gross wall motion abnormality was seen, its presence can not be ruled out on the basis of this study. Right ventricle was normal-sized with reduced systolic function. Both atria were mildly dilated. Pacing wire was seen in right-sided chambers. Aortic valve was not well visualized. Omsz-vf-ieoqrfnl aortic insufficiency was seen. Aortic sclerosis with no stenosis was identified. Mild mitral regurgitation was seen. Moderate tricuspid regurgitation was seen. Pulmonary valve was not visualized. Right ventricular systolic pressure was assessed at 37 mm Hg. There was no pericardial effusion. Patient is a 75-year-old female who presented with repeated nausea and vomiting which was followed by anterior chest discomfort/tenderness. Chest pain has been pleuritic. Serial high sensitive troponin has been negative. Acute coronary syndrome is not considered. It is of note that the patient had right and left heart catheterization in January 2025 (suggestion was for medical management). Is referred for elective/outpatient Watchman which has not happened before. He is kept on Eliquis/Plavix as outpatient. The dose of Eliquis and has been 2.5 b.i.d. (has had repeated GI bleedings secondary to hiatal hernia). Chest x-ray revealed congestion of the lungs versus pneumonia. It is of note that the patient does have baseline history of diastolic heart failure and component of acute on chronic diastolic heart failure could be present. Was evaluated by GI. Stool OB is positive. H/H is stable. Chest discomfort, atypical Pleuritic chest pain Nausea and vomiting, repeated Acute on chronic diastolic heart failure Coronary artery disease, status post CABG/PCI Paroxysmal atrial flutter (on Eliquis as outpatient) COPD/Emphysema Pulmonary fibrosis Pulmonary hypertension, history of Chronic diastolic heart failure Status post pacemaker Hypokalemia Paroxysmal atrial flutter with RVR Hiatal Hernia Sepsis Diarrhea GI bleeding, significant, s/p PRBC transfusion Cardiac suggestions for management: Manage on telemetry Gentle diuresis Follow-up electrolytes and kidney function and correct abnormalities, keep potassium above 4 magnesium above 2 Oral Amiodarone: 200 mg HS On Lovenox (therapy dose) and Plavix. Stop Lovenox and restart Eliquis: 2.5 mg PO BID (after EGD) Continue Plavix at 75 mg daily Optimized medical therapy long-term continuation of full anticoagulation for history of paroxysmal atrial flutter is suggested (for now, on Lovenox, we will later change back to Eliquis) long-term continuation of Plavix (CAD h/o Left Main stenting) is suggested. Antianginal therapy Continuation of Statin/Ranexa/Imdur/Coreg is suggested Was evaluated by GI Cardiac wilcox, patient is moderate risk patient for low risk EGD procedure. Cardiac wilcox, you can proceed with EGD under appropriate intra and post operative hemodynamic monitoring. Avoid hypotension. Cardiac wilcox, stable and can be followed as outpatient Further evaluation and management depends on the above and clinical course A total of 55 minutes was spent reviewing the patient record, examining the patient, making a diagnostic and therapeutic plan, discussing this plan with medical personnel, following up on diagnostic studies and following the patient for clinical stability excluding any and all procedures. At least 50% of this time was spent in direct, [id number] contact. Thank you for allowing me to participate in this patient's care. Further recommendations will depend on patient's clinical course. Please do not hesitate to contact me if you have any questions or concerns. This medical document was created using electronic medical record system with [employer] computerized dictation system. Although this document has been carefully reviewed, there may still be some phonetic and typographical errors. These areas are purely typographical due to the imperfection of the software programs, and do not reflect any compromise in the patient's medical care. Dietary Evaluation Review Comments: 1. Monitor PO intake to meet 75% of her needs 2. Refer to PCP for medication review 3. minimize her medication list Expected Outcomes/Goals: take less medication if possible, gradual wt loss Plan discussed with: Patient RONA GOMEZ BAND MACHINE OPERATOR May 17, 2025 06:42
[2025-05-17 07:26] LABS: Hematocrit 26.3 % (36.0-46.0); Hemoglobin 8.9 g/dL (12.2-16.2)
[2025-05-17 07:34] LABS: Chloride 98 mmol/L (98-107); Potassium 4.2 mmol/L (3.5-5.1); Sodium 137 mmol/L (136-145)
[2025-05-17 07:35] LABS: Anion Gap 8 (5-15); Calcium 8.8 mg/dL (8.7-10.4); Carbon Dioxide 31 mmol/L (20-31)
[2025-05-17 07:40] LABS: BUN/Creatinine Ratio 15.2 (10.0-20.0); Blood Urea Nitrogen 12 mg/dL (9-23); Glucose 91 mg/dL (74-106)
== END 2025-05-17 10:20 | disposition home or self-care (01) | DRG 377 ==
LOC: EDBD 16:50 → EDUNIT# 16:50 → ER 16:54 → OVERFLOW 21:02 → TELE-WESTW 23:45
PROVIDERS: ADMIT Nurse Practitioner Acute Care; ATTEND Nurse Practitioner Acute Care
PROC: 4B02XSZ Measurement of Cardiac Pacemaker, External Approach (ICD-10-PCS; 2025-05-13)
PROC: 0DB68ZX Excision of Stomach, Via Natural or Artificial Opening Endoscopic, Diagnostic (ICD-10-PCS; 2025-05-16)
PROC: 0DB48ZX Excision of Esophagogastric Junction, Via Natural or Artificial Opening Endoscopic, Diagnostic (ICD-10-PCS; 2025-05-16)
PROC: 0DB98ZX Excision of Duodenum, Via Natural or Artificial Opening Endoscopic, Diagnostic (ICD-10-PCS; principal; 2025-05-16 09:55)
DX: K29.01 Acute gastritis with bleeding (principal); I50.33 Acute on chronic diastolic (congestive) heart failure; R53.2 Functional quadriplegia; I48.92 Unspecified atrial flutter; J96.10 Chronic respiratory failure, unspecified whether with hypoxia or hypercapnia; I25.110 Atherosclerotic heart disease of native coronary artery with unstable angina pectoris; I24.9 Acute ischemic heart disease, unspecified; D68.69 Other thrombophilia; R71.0 Precipitous drop in hematocrit; K29.81 Duodenitis with bleeding; I27.20 Pulmonary hypertension, unspecified; M79.7 Fibromyalgia; K44.9 Diaphragmatic hernia without obstruction or gangrene; K21.9 Gastro-esophageal reflux disease without esophagitis; E78.5 Hyperlipidemia, unspecified; E87.6 Hypokalemia; I48.0 Paroxysmal atrial fibrillation; J84.10 Pulmonary fibrosis, unspecified; J44.89 Other specified chronic obstructive pulmonary disease; I70.0 Atherosclerosis of aorta; I35.1 Nonrheumatic aortic (valve) insufficiency; I11.0 Hypertensive heart disease with heart failure; I08.1 Rheumatic disorders of both mitral and tricuspid valves; E11.51 Type 2 diabetes mellitus with diabetic peripheral angiopathy without gangrene; F41.9 Anxiety disorder, unspecified; Z79.899 Other long term (current) drug therapy; Z79.4 Long term (current) use of insulin; Z95.0 Presence of cardiac pacemaker; Z87.891 Personal history of nicotine dependence; Z90.710 Acquired absence of both cervix and uterus; Z86.73 Personal history of transient ischemic attack (TIA), and cerebral infarction without residual deficits; Z80.1 Family history of malignant neoplasm of trachea, bronchus and lung; Z95.1 Presence of aortocoronary bypass graft; Z99.81 Dependence on supplemental oxygen; Z98.61 Coronary angioplasty status; Z79.02 Long term (current) use of antithrombotics/antiplatelets; Z79.01 Long term (current) use of anticoagulants; Z88.1 Allergy status to other antibiotic agents; Z83.3 Family history of diabetes mellitus; Z82.49 Family history of ischemic heart disease and other diseases of the circulatory system; I25.2 Old myocardial infarction
CPT/HCPCS: 36415; 43239; 71045; 80048; 80053; 80061; 80307; 81001; 82248; 82270; 82306; 82607; 83036; 83605; 83735; 83880; 84100; 84443; 84484; 85014; 85018; 85025; 85048; 85379; 85610; 85730; 86803; 86850; 86900; 86901; 87340; 93005; 93306; 96372; 99291; G0378; J2003; J2405; J2470; J2704

== ENCOUNTER 2025-06-24 09:20 | Outpatient (CLI) | payer MEDICARE, MEDICAID ==
[~2025-06-24 09:20] MED LIST changes: +SUCR1TAB31 OR
[2025-06-24 09:57] LABS: Hematocrit 26.3 % (36.0-46.0); Hemoglobin 8.5 g/dL (12.2-16.2); Mean Corpuscular Hemoglobin 32.0 pg (28.0-32.0); Mean Corpuscular Volume 98.5 fL (80.0-100.0); Nucleated Red Blood Cells % 0.0 %
[2025-06-24 10:36] LABS: Alanine Aminotransferase 17 U/L (7-40); Albumin 3.9 g/dL (3.2-4.8); Alkaline Phosphatase 75 U/L (46-116); Anion Gap 10 (5-15); BUN/Creatinine Ratio 16.9 (10.0-20.0); Blood Urea Nitrogen 10 mg/dL (9-23); Calcium 8.9 mg/dL (8.7-10.4); Carbon Dioxide 27 mmol/L (20-31); Chloride 106 mmol/L (98-107); Cholesterol 88 mg/dL (< 200); Glucose 95 mg/dL (74-106); HDL Cholesterol 53 mg/dL (40-59); Potassium 3.9 mmol/L (3.5-5.1); Sodium 143 mmol/L (136-145); Total Protein 6.0 g/dL (5.7-8.2); Triglycerides 107 mg/dL (< 150)
[2025-06-24 10:50] LABS: Bilirubin, Direct < 0.1 mg/dL (<0.3); Bilirubin, Total 0.2 mg/dL (0.2-1.0)
== END 2025-06-24 17:00 | disposition home or self-care (01) ==
LOC: LAB 09:20
PROVIDERS: ATTEND Specialist
DX: I11.0 Hypertensive heart disease with heart failure (principal); I50.9 Heart failure, unspecified; E11.9 Type 2 diabetes mellitus without complications; E03.9 Hypothyroidism, unspecified; E78.5 Hyperlipidemia, unspecified; D64.9 Anemia, unspecified; R68.89 Other general symptoms and signs
CPT/HCPCS: 36415; 80053; 80061; 82248; 84443; 85025